=== PATIENT | female | born 1945 | race Caucasian/White ===

== ENCOUNTER 2023-04-12 13:45 | Outpatient (OUT) | payer MEDICARE, SELFPAY ==
--- NOTE | 2023-04-12 14:10 | XR_ITS ---
The [address] [address] Patient Name: MARIA ELENA ALLEN MRN: [id number] date: 1945 Sex: F Assigned Patient Location: [facility] Current Patient Location: [facility] Accession/Order Number: [id number] Exam Date: 04/12/2023 14:00 Report Date: 04/12/2023 14:58 At the request of: ANTOINE IZQUIERDO Procedure: XR thoracic spine 2V EXAM: XR thoracic spine 2V HISTORY: Acute left-sided thoracic back pain M54.6 COMPARISON: 11/08/2017 TECHNIQUE: AP and lateral views of the thoracic spine obtained. FINDINGS: There is relatively normal curvature and alignment of the vertebral bodies throughout the thoracic spine. There is no apparent acute fracture. Small osteophytes arise from the vertebral bodies. Slight narrowing of the disc spaces is noted throughout. The posterior elements are unremarkable. Incidentally noted are diffuse interstitial changes throughout the lungs, which appear fairly chronic in nature with interval worsening. There is also interval increase of the prominence of the bang.. XR/XR thoracic spine 2V IMPRESSION: Degenerative changes are seen in the spine with diffuse osteopenia. There is no apparent acute fracture or significant osseous abnormality. Interval worsening of patient's chronic interstitial disease, with increasing prominence of the bang indicating adenopathy or masses. Perhaps further evaluation with a CT scan of the chest at this time would be helpful. Electronically authenticated by: MIRIAM GUADARRAMA Date: 04/12/2023 14:58
== END 2023-04-12 13:46 | disposition home or self-care (01) ==
LOC: RAD 13:46
PROVIDERS: PCP Internal Medicine; Visit Provider Internal Medicine
DX: M54.6 Pain in thoracic spine (principal)
CPT/HCPCS: 72070

== ENCOUNTER 2023-04-14 07:54 | Outpatient (RCR) | payer MEDICARE, SELFPAY | END 2023-04-22 13:19 | disposition home or self-care (01) | LOC: PT 07:54 | PROVIDERS: PCP Internal Medicine; Visit Provider Internal Medicine | DX: M54.6 Pain in thoracic spine (principal) | CPT/HCPCS: 97010; 97110; 97140; 97161; G0283 ==

== ENCOUNTER 2023-04-19 13:26 | Outpatient (OUT) | payer MEDICARE, SELFPAY ==
[2023-04-19 13:49] LABS: Estimated GFR (African America >60 (>=60); Estimated GFR (Non-African Ame >60 (>=60)
--- NOTE | 2023-04-19 14:00 | CT_ITS ---
The [address] [address] Patient Name: MARIA ELENA ALLEN MRN: [id number] date: 1945 Sex: F Assigned Patient Location: LAB Current Patient Location: LAB Accession/Order Number: [id number] Exam Date: 04/19/2023 14:00 Report Date: 04/19/2023 15:44 At the request of: ANTOINE IZQUIERDO Procedure: CT chest w con EXAMINATION: CT chest w con HISTORY: Pulmonary nodule R91.1 ; former smoker; shortness of breath with exertion COMPARISON: No relevant comparison available. TECHNIQUE: Multi-planar CT images were obtained without and/or with IV contrast as indicated by examination type. Axial, Coronal, and Sagittal images. Dose reduction techniques were achieved by using automated exposure control and/or adjustment of mA and/or kV according to patient size and/or use of iterative reconstruction technique. FINDINGS: LUNGS: 4 mm nodule within posterior lateral aspect of right middle lobe. Fibrotic changes along the peripheral margins of the lungs and mild-moderate emphysematous changes. PLEURA: No mass, effusion, or pneumothorax. VASCULATURE: No abnormality. CAROL: No mass or adenopathy. MEDIASTINUM: No mass or adenopathy. CARDIAC: No enlargement, pericardial thickening, or significant calcification. AORTA: No aneurysm or dissection. CHEST WALL: No mass or axillary adenopathy. BONES: No bone lesion or fracture. LIMITED ABDOMEN: No suspicious findings Limited images of the upper abdomen. OTHER: Negative. CT/CT chest w con IMPRESSION: 1. Within the right middle lobe is a 4 mm nodule, nonspecific but not overtly suspicious. Follow-up CT chest in 6 months is recommended to document stability. 2. Emphysematous changes and peripheral fibrotic changes. No convincing acute infiltrates. Electronically authenticated by: AMEE ESTRADA Date: 04/19/2023 15:44
== END 2023-04-19 13:27 | disposition home or self-care (01) ==
LOC: LAB 13:26
PROVIDERS: PCP Internal Medicine; Visit Provider Internal Medicine
DX: R91.1 Solitary pulmonary nodule (principal)
CPT/HCPCS: 36415; 71260; 82565; Q9967

== ENCOUNTER 2023-05-13 09:10 | Outpatient (REF) | payer MEDICARE, SELFPAY ==
[2023-05-13 10:04] LABS: SARS-CoV-2 Ag NEGATIVE (NEGATIVE)
[2023-05-13 15:27] LABS: SARS-CoV-2 NAA NOT DETECTED (NOT DETECTE)
== END 2023-05-13 09:11 | disposition home or self-care (01) ==
LOC: LAB 09:10
PROVIDERS: PCP Internal Medicine; Visit Provider Internal Medicine
DX: Z20.822 Contact with and (suspected) exposure to COVID-19 (principal)
CPT/HCPCS: 87635; 87811; U0003

== ENCOUNTER 2023-06-13 12:08 | Outpatient (OUT) | payer MEDICARE, SELFPAY ==
--- NOTE | 2023-06-13 13:30 | PM.CN ---
Consult Note: HPI Data of Consult Patient: new to practice Consult date: 06/13/23 Requesting Physician: Raphael Parisi MD Primary Care Provider: Edwin Mohan, DO Consult Narrative Reason for consult: midback, low back, right hip, bilateral knee pain Narrative: 78yof who presents for evaluation. she notes worsening midback, low back, right hip, bilateral knee pain. Ongoing for several months, but worsening. Thoracic XR shows multilevel degenerative changes, but no imaging available of low back. has completed physical therapy, continues in chiropractor >6 weeks, continues in provider directed home exercise program for >6 weeks, with limited benefit. Has had cortisone and gel injections for knees, with marginal benefit. Utilizes tramadol, with some benefit. Denies adverse med side effects. cc:: CC: Raphael Parisi MD Review of Systems ROS Status of ROS 10 or more systems reviewed and unremarkable except as noted in history and below Exam Narrative Exam Narrative: Psych-alert and oriented x 3. Attentive and appropriate, constitutionally normal, displays normal mood and affect per situation.? There are no obvious deficits in memory, reasoning, or intellect.? Skin-no obvious rashes, bruising, erythema noted to the patient's area of pain. Extremities- extremities are warm with minimal edema and palpable pulses. Lumbar-no significant tenderness to palpation noted in the lumbar spine and paraspinal musculature.? Pain is elicited with extension, and lateral rotation of the lumbar spine. Range of motion is slightly diminished with these motions due to pain. Facet loading maneuvers are positive bilaterally and do appear to be concordant with the patient's normal complaints of pain.? Thoracic - tenderness to palpation in midback. Pain radiates outward around T5, 6, 7 dermatomal regions. Knee-examination of the bilateral knee reveals tenderness to palpation over the superior, inferior, lateral, and medial aspect of the knee.? Some swelling is noted without erythema. Pain is elicited with flexion and extension of the knee both actively and passively.? Some grinding is noted with these motions.? There is no notable ligamental laxity or instability. Coordination remains intact.? Gait remains non-antalgic. Assessment and Plan Assessment and Plan (1) Osteoarthritis of knees, bilateral: (2) Lumbago: (3) Right hip pain: (4) Thoracic radiculopathy: (5) Thoracic stenosis: Plan 78yof who presents for evaluation. Failed conservative measures, as noted. Imaging reviewed, as noted. Given radiating midback pain and failure to respond to conservative measures >6 weeks, prudent to obtain thoracic MRI without contrast. States that she had epidural done 30 years ago, which provided significant relief. Will also obtain lumbar and right hip XR. In terms of bilateral knee pain, has not had much relief with cortisone and synvisc injections. Will have her undergo bilateral genicular nerve blocks for diagnostic and potentially therapeutic purposes. She is in agreement. Medications reviewed. She will continue her tramadol. I told her that we could take over tramadol prescription if her PCP wanted, though she does not need refill now. Uses sparingly and does not like taking it except for before bed. Follow up after procedure and imaging.
== END 2023-06-13 12:09 | disposition home or self-care (01) ==
LOC: PM 12:08
PROVIDERS: PCP Internal Medicine; Visit Provider Anesthesiology
DX: M54.50 Low back pain, unspecified (principal); M25.551 Pain in right hip; M17.0 Bilateral primary osteoarthritis of knee; M54.14 Radiculopathy, thoracic region; M48.04 Spinal stenosis, thoracic region
CPT/HCPCS: G0463

== ENCOUNTER 2023-06-15 08:57 | Outpatient (OUT) | payer MEDICARE, SELFPAY ==
--- NOTE | 2023-06-15 09:05 | XR_ITS ---
[address] [address] Patient Name: MARIA ELENA ALLEN MRN: [id number] date: 1945 Sex: F Assigned Patient Location: [facility] Current Patient Location: MRI Accession/Order Number: [id number] Exam Date: 06/15/2023 09:25 Report Date: 06/15/2023 14:40 At the request of: ANTOINE IZQUIERDO Procedure: XR DEXA axial skeleton EXAMINATION: XR DEXA axial skeleton HISTORY: Screening COMPARISON: DEXA bone densitometry 02/16/2021 TECHNIQUE: Dual-energy X-ray absorptiometry (DXA) was performed. FINDINGS: SPINE ANALYSIS: Average bone mineral density is 0.974 g/cm2. T-score (standard deviation relative to young adult mean): -1.7 . + 3.5% change since prior study HIP ANALYSIS: Lowest bone mineral density is within the left femoral trochanter, 0.43 g/cm2. T-score (standard deviation relative to young adult mean): -3.6 . -10.1% change since prior study. XR/XR DEXA axial skeleton IMPRESSION: World Carl Organization Classification: Osteoporosis - High Fracture Risk Electronically authenticated by: AMEE ESTRADA Date: 06/15/2023 14:40
--- NOTE | 2023-06-15 09:05 | MM_ITS ---
Patient: MARIA ELENA ALLEN Exam Date: 06/15/2023 : 1945 Gender:F Ordering : DR Edwin Mohan D.O. Admission #: [id number] Family : Order #: [id number] CLICK HERE TO VIEW EXAM RADIOLOGY REPORT PROCEDURE: MM TOMOSYNTHESIS SCREENING BI COMPARISON: MG [facility]M SCREEN 3D JESSENIA CAD, 05/25/2022. MG MAMM SCREEN 3D JESSENIA CAD, 02/16/2021. MG MAMM SCREEN JESSENIA W CAD, 06/28/2019. MG MAMM JESSENIA SCRN W CAD DIG, 11/15/2013. INDICATIONS: Screening Calculator Name NCI Breast Cancer Risk Assessment Tool 5 Year Breast Cancer Risk 1.70% Lifetime Breast Cancer Risk 3.30% Personal Breast Cancer No Personal Ovarian Cancer No Treatments None Family Cancers None LOCATION: [facility] BREAST COMPOSITION: Scattered areas fibroglandular density. FINDINGS: DIAGNOSTIC CATEGORY 2--BENIGN FINDING: RIGHT BREAST: No significant suspicious finding. No significant change has occurred. LEFT BREAST: No significant suspicious finding. Scattered benign-appearing lymph nodes are present. No significant change has occurred. RECOMMENDATIONS: ROUTINE MAMMOGRAM AND CLINICAL EVALUATION IN 12 MONTHS. PLEASE NOTE: A NORMAL MAMMOGRAM DOES NOT EXCLUDE THE POSSIBILITY OF BREAST CANCER. A CLINICALLY SUSPICIOUS PALPABLE LUMP SHOULD BE BIOPSIED. Dictated by: Xavier Roe M.D. on 06/20/2023 at 12:45 Approved by: Xavier Roe M.D. on 06/20/2023 at 12:48
== END 2023-06-15 08:58 | disposition home or self-care (01) ==
LOC: MAMMO 08:57
PROVIDERS: PCP Internal Medicine; Visit Provider Internal Medicine
DX: Z12.31 Encounter for screening mammogram for malignant neoplasm of breast (principal); Z78.0 Asymptomatic menopausal state; M81.0 Age-related osteoporosis without current pathological fracture
CPT/HCPCS: 77063; 77067; 77080

== ENCOUNTER 2023-06-15 08:58 | Outpatient (OUT) | payer MEDICARE, SELFPAY ==
--- NOTE | 2023-06-15 09:03 | XR_ITS ---
The [place] [id number] Patient Name: MARIA ELENA ALLEN MRN: [id number] date: 1945 Sex: F Assigned Patient Location: [facility] Current Patient Location: Accession/Order Number: [id number] Exam Date: 06/15/2023 09:45 Report Date: 06/16/2023 09:48 At the request of: ALINE LANDAVERDERABEVERLEY Procedure: XR lumbar spine 6V w bending EXAMINATION: XR lumbar spine 6V w bending HISTORY: Low Back Pain an intermittent right hip pain for 2 weeks, back spasm, limited range of motion COMPARISON: No relevant comparison available. FINDINGS: BONES: Mild grade 1 retrolisthesis of L1 on 2 and L2 on 3 which is stable between neutral, flexion, extension. Development of mild grade 1 retrolisthesis of L3 on 4 during extension. Minimal left convex curvature of lumbar spine. No fracture or bone lesion. Moderate degenerative facet arthropathy L4-5, L5-S1. DISC SPACES: No significant disc height narrowing, subluxation, or endplate abnormality. PARASPINOUS: Marked atherosclerotic disease of aorta and iliac arteries; no appreciable aneurysm. OTHER: Negative. XR/XR lumbar spine 6V w bending IMPRESSION: 1. Moderate degenerative facet arthropathy of lower lumbar spine and multilevel mild grade 1 listhesis. 2. No appreciable disc space narrowing. Consider MRI if symptoms persist. Electronically authenticated by: AMEE ESTRADA Date: 06/16/2023 09:48
--- NOTE | 2023-06-15 09:03 | XR_ITS ---
The [address] [address] Patient Name: MARIA ELENA ALLEN MRN: [id number] date: 1945 Sex: F Assigned Patient Location: [facility] Current Patient Location: [facility] Accession/Order Number: [id number] Exam Date: 06/15/2023 09:45 Report Date: 06/15/2023 18:08 At the request of: ANDRIUS GIEDRAITIS Procedure: XR hip RT min 2V EXAM: Right hip HISTORY: . Right Hip Pain . COMPARISON: None. TECHNIQUE: 2 views FINDINGS: No fracture or dislocation of the right hip is noted. Joint spaces well-maintained. Surrounding soft tissues are unremarkable. XR/XR hip RT min 2V IMPRESSION: Negative right hip. Electronically authenticated by: BHARTI JONES Date: 06/15/2023 18:08
== END 2023-06-15 08:59 | disposition home or self-care (01) ==
LOC: RAD 08:59
PROVIDERS: PCP Internal Medicine; Visit Provider Anesthesiology
DX: Z12.31 Encounter for screening mammogram for malignant neoplasm of breast (principal); M81.0 Age-related osteoporosis without current pathological fracture; Z78.0 Asymptomatic menopausal state; M54.50 Low back pain, unspecified; M25.551 Pain in right hip; M47.816 Spondylosis without myelopathy or radiculopathy, lumbar region
CPT/HCPCS: 72114; 73502; 77063; 77067; 77080

== ENCOUNTER 2023-06-20 06:44 | Day surgery (SDC) | payer MEDICARE, SELFPAY ==
[2023-06-20 06:59] VITALS: BP 144/72; PULSE 59; RESP 16; TEMP 36.2; O2SAT 96
[2023-06-20] MEDS: LIDOCAINE HCL 2% PF 100 MG/5 ML VIAL INJ (07:55)
[2023-06-20] MEDS: BUPIVACAINE HCL 0.25% PF 25 MG/10 ML VIAL INJ (07:55)
--- NOTE | 2023-06-20 07:55 | W.PM.PROCNOT ---
Date of procedure: 06/20/23 Pre-op diagnosis: Knee osteoarthritis, bilateral Post-op diagnosis: same as pre-op Procedure: Procedure: Bilateral genicular nerve block Medications: Bupivacaine 0.25% 3cc, kenalog 40mg x2 The patient was taken to the procedures suite and positioned in the supine position. I explained the details of the procedure to the patient including the risks, benefits and alternatives. We had an informed discussion and the patient verbalized understanding and signed the consent form. All questions were answered appropriately.? A 'time out' procedure was performed. The patient was identified, the chart was reviewed, and all allergies were confirmed. Laterality was conducted and marked. The appropriate was marked with a sterile marking pen, prepped times three with alcohol, and sterilely draped.? Under fluoroscopic guidance, branches of the genicular nerves were localized.? First the left sided superior medial genicular nerve was localized where the femoral shaft meets the medial epicondyle.? Skin was anesthetized with 1% lidocaine.? A 25-gauge 3.5 in needle was advanced in a coaxial manner in the AP view.? This was repeated on the superior lateral genicular nerve where the femoral shaft meets the lateral epicondyle and the inferior medial genicular nerve where the medial tibal shaft meets the tibial epicondyle. After negative aspiration for blood or other bodily fluids, 1cc of 0.25% bupivicaine was injected at each of the three sites. The needles were removed. The same procedure, with the same steps, was then completed on the right side. The patient was transported to the postoperative area in good condition. Anesthesia: Local Surgeon: Raphael Parisi Pathology: none sent Condition: stable Disposition: no change
[2023-06-20] MEDS: TRIAMCINOLONE ACETONIDE 40 MG/ML VIAL 80 MG INJ (07:56)
[2023-06-20 09:09] VITALS: BP 117/57; BP 123/62; PULSE 64; PULSE 66; RESP 18; O2SAT 94; O2SAT 96
== END 2023-06-20 08:01 | disposition home or self-care (01) ==
PROVIDERS: PCP Internal Medicine; Visit Provider Anesthesiology
DX: M17.0 Bilateral primary osteoarthritis of knee (principal)
CPT/HCPCS: 64454

== ENCOUNTER 2023-06-22 09:33 | Outpatient (OUT) | payer MEDICARE, SELFPAY ==
--- NOTE | 2023-06-22 09:40 | MR_ITS ---
[address] [address] Patient Name: MARIA ELENA ALLEN MRN: [id number] date: 1945 Sex: F Assigned Patient Location: MRI Current Patient Location: MRI Accession/Order Number: [id number] Exam Date: 06/22/2023 09:50 Report Date: 06/22/2023 12:00 At the request of: ANDRI GIEDRAITIS Procedure: MR thoracic spine wo con EXAM: MR thoracic spine wo con CLINICAL INDICATION: Thoracic Stenosis COMPARISON: CT chest 04/10/2023. TECHNIQUE/PROTOCOL: Thoracic spine noncontrast protocol MRI performed. CONTRAST: None. FINDINGS: Spinal Cord and Cauda Equina: Normal in signal. Epidural Hematoma: None. Alignment: Normal. Marrow Signal: Normal. Vertebral Body Heights: Maintained. Paraspinal Soft Tissues: Normal. Spondylotic Changes: Multilevel spondylotic changes include diffuse disc desiccation and varying degrees of intervertebral disc height loss, osteophytic ridging, and facet/ligamentum flavum hypertrophy. Right central disc protrusion at T8-T9 indents the right ventral thecal sac and results in mild to moderate spinal canal narrowing. Partially calcified disc bulge with superimposed left central disc protrusion at T9-T10 together indent the ventral thecal sac and deforms the spinal cord. These in conjunction with bilateral facet/ligamentum flavum hypertrophy overall result in advanced spinal canal narrowing. Small left central disc protrusion at T12-L1 results in mild spinal canal narrowing. No high-grade foraminal narrowing at any thoracic level. MR/MR thoracic spine wo con IMPRESSION: 1. Multilevel spondylotic changes with advanced spinal canal narrowing at T9-T10. This is contributed to by a partially calcified disc bulge with superimposed left central disc protrusion and facet/ligamentum flavum hypertrophy. No abnormal cord signal. 2. Spinal canal narrowing is also mild to moderate at T8-T9. Electronically authenticated by: DEDRA MANTILLA Date: 06/22/2023 12:00
== END 2023-06-22 09:34 | disposition home or self-care (01) ==
LOC: MRI 09:33
PROVIDERS: PCP Internal Medicine; Visit Provider Anesthesiology
DX: M48.04 Spinal stenosis, thoracic region (principal)
CPT/HCPCS: 72146

== ENCOUNTER 2023-06-29 09:54 | Outpatient (OUT) | payer MEDICARE, SELFPAY ==
--- NOTE | 2023-06-29 10:40 | P.CN_ITS ---
Consult Note: HPI Data of Consult Patient: known to practice within the last 3 years Consult date: 06/13/23 Requesting Physician: Sunshine Chaparro NP Primary Care Provider: Edwin Mohan DO Consult Narrative Reason for consult: f/u Narrative: Chelly blackwell pleasant 78 year old female presents for evaluation and manag ement of chronic pain. Pain today 2/10 in bilateral knees. Patient reporting 80% pain relief and functional improvement immediately following and hours after bilateral genicular nerve block. Patient would like to discuss proceeding with bilateral genicular thermal RFA as she has had chronic bilateral knee pain >3 months unresponsive to PT/HEP, OTC pain medications, topical creams, PRN tramadol. Pain continues to impact functional ability. cc:: CC: Sunshine Chaparro NP Review of Systems ROS Status of ROS 10 or more systems reviewed and unremarkable except as noted in history and below Musculoskeletal Reports: joint pain (bilateral knee pain) PFSH PFSH Medical History Acid reflux ?K21.9 - Gastro-esophageal reflux disease without esophagitis (ICD-10) High cholesterol ?E78.00 - Pure hypercholesterolemia, unspecified (ICD-10) Hypertension ?I10 - Essential (primary) hypertension (ICD-10) Surgical History H/O: hysterectomy ?Z90.710 - Acquired absence of both cervix and uterus (ICD-10) Meds Home Medications and Allergies Home Medications Medication Instructions Recorded Confirmed Type albuterol sulfate 90 mcg/actuation 2 puff inhalation Q4H PRN 06/14/23 06/20/23 History aerosol inhaler shortness of breath or wheezing aspirin 81 mg tablet,delayed 81 mg PO DAILY 06/14/23 06/20/23 History release (Adult Aspirin Regimen) atenolol 25 mg tablet 25 mg PO Q24H 06/14/23 06/20/23 History atorvastatin 40 mg tablet 20 mg PO DAILY 06/14/23 06/20/23 History hydrochlorothiazide 25 mg tablet 25 mg PO DAILY 06/14/23 06/20/23 History loratadine 10 mg capsule 10 mg PO DAILY 06/14/23 06/20/23 History losartan 100 mg tablet 100 mg PO DAILY 06/14/23 06/20/23 History omeprazole 40 mg capsule,delayed 40 mg PO DAILY 06/14/23 06/20/23 History release tramadol 50 mg tablet 50 mg PO Q6H PRN pain 06/14/23 06/20/23 History Allergies Allergy/AdvReac Type Severity Reaction Status Date / Time cefaclor [From Ceclor] Allergy Verified 06/20/23 07:05 ciprofloxacin [From Cipro] Allergy Verified 06/20/23 07:05 Exam Narrative Exam Narrative: Psych-alert and oriented x 3. Attentive and appropriate, constitutionally normal, displays normal mood and affect per situation.? There are no obvious deficits in memory, reasoning, or intellect.? Skin-no obvious rashes, bruising, erythema noted to the patient's area of pain. Extremities- extremities are warm with minimal edema and palpable pulses. Lumbar-no significant tenderness to palpation noted in the lumbar spine and paraspinal musculature.? Pain is elicited with extension, and lateral rotation of the lumbar spine. Range of motion is slightly diminished with these motions due to pain. Facet loading maneuvers are positive bilaterally and do appear to be concordant with the patient's normal complaints of pain.? Thoracic - tenderness to palpation in midback. Pain radiates outward around T5, 6, 7 dermatomal regions. Knee-examination of the bilateral knee reveals tenderness to palpation over the superior, inferior, lateral, and medial aspect of the knee.? Some swelling is noted without erythema. Pain is elicited with flexion and extension of the knee both actively and passively.? Some grinding is noted with these motions.? There is no notable ligamental laxity or instability. Coordination remains intact.? Gait remains non-antalgic. Constitutional Documenting provider has reviewed patient's vital signs: yes Common normals: no apparent distress, oriented x3, healthy appearing, alert and well nourished General appearance: cooperative [facility] Common normals: normocephalic, hearing grossly normal bilaterally and moist oral mucous membranes Head and scalp: normocephalic Eye Common normals: PERRL Pupil: PERRL Neck & C-Spine Common normals: full ROM General: normal visual inspection Chest Common normals: inspection of chest normal Respiratory Common normals: normal respiratory effort, no retractions and no use of accessory muscles Neuro Common normals: oriented x3, CN's II-XII intact bilaterally, moves all extremities, no focal motor deficits, no sensory deficits noted and deep tendon reflexes 2+ bilaterally Sensorium/orientation: alert Motor exam: strength 5/5 throughout and no movement abnormalities noted Psych Common normals: mental status grossly normal, thought process normal, cooperative, affect normal, speech normal and activity/motor behavior normal Speech: normal speech Thought process: normal thought process Results Additional Findings Additional findings: I have checked an OARRS report on this patient today and there are no aberrancies noted in the prescribing history.?? A drug screen was completed and reviewed within the last year, and if there has not been a drug screen completed we ordered one today to monitor higher risk, state monitored pain medication use. As part of providing excellent, safe, comprehensive care, the following was completed at our patient's visit: 1. A medication reconciliation and review to ensure accurate knowledge of current/active medications, including asking our patients to inform us about any [id number] medications or herbal remedies/nutritional supplements/alternative remedies. 2. A review to specifically ensure our patients have had annual screening for: elevated body mass index (BMI), tobacco use, screening for depression, and screening for unhealthy alcohol use. When screening is concerning, patients are provided with education and the specific recommendation to discuss the concerning health issue and treatment options with their primary care provider. Assessment and Plan Assessment and Plan (1) Osteoarthritis of knees, bilateral: (2) Thoracic stenosis: (3) Thoracic radiculopathy: (4) Right hip pain: (5) Lumbago: Plan imaging of thoracic spine and lumbar spine reviewed with patient, declining additional injections at this time proceed with bilateral knee genicular ablations under fluoroscopy continue medications through PCP f/u 1 month after thermal RFA
== END 2023-06-29 09:55 | disposition home or self-care (01) ==
LOC: PM 09:57
PROVIDERS: PCP Internal Medicine; Visit Provider Nurse Practitioner
DX: M25.551 Pain in right hip (principal); M54.50 Low back pain, unspecified; M17.0 Bilateral primary osteoarthritis of knee; M48.04 Spinal stenosis, thoracic region; M54.14 Radiculopathy, thoracic region
CPT/HCPCS: G0463

== ENCOUNTER 2023-07-25 07:44 | Day surgery (SDC) | payer MEDICARE, SELFPAY ==
[2023-07-25 07:39] VITALS: BP 110/72; PULSE 58; RESP 14; TEMP 36.3; O2SAT 96
[2023-07-25 08:41] VITALS: BP 129/62; PULSE 54; RESP 18; O2SAT 94
[2023-07-25] MEDS: TRIAMCINOLONE ACETONIDE 40 MG/ML VIAL 80 MG INJ (08:47)
[2023-07-25] MEDS: BUPIVACAINE HCL 0.25% PF 25 MG/10 ML VIAL 4 ML INJ (08:47)
[2023-07-25 08:52] VITALS: BP 140/59; PULSE 57; RESP 18; O2SAT 96
[2023-07-25] MEDS: LIDOCAINE HCL 2% 400 MG/20 ML MDV 36 ML INJ (08:59)
--- NOTE | 2023-07-25 08:59 | W.PM.PROCNOT ---
Date of procedure: 07/25/23 Pre-op diagnosis: Knee osteoarthritis, bilateral Post-op diagnosis: same as pre-op Procedure: Procedure: Bilateral genicular nerve radiofrequency ablation Medications: Bupivacaine 0.25% 6cc, kenalog 80mg, lidocaine 2% 10cc The patient was taken to the procedures suite and positioned in the supine position. I explained the details of the procedure to the patient including the risks, benefits and alternatives. We had an informed discussion and the patient verbalized understanding and signed the consent form. All questions were answered appropriately.? ? A 'time out' procedure was performed. The patient was identified, the chart was reviewed, and all allergies were confirmed. Laterality was conducted and marked. The left knee was marked with a sterile marking pen, prepped with Chloraprep, and sterilely draped.? Under fluoroscopic guidance, branches of the genicular nerves were localized.? First the superior medial genicular nerve was localized where the femoral shaft meets the medial epicondyle.? Skin was anesthetized with 1% lidocaine (only the superficial areas far from osseous contact).? The appropriate level of insertion was identified by placing a hemostat over the knee and obtaining an AP view. An 18-gauge 10 mm active tip 3.5 in needle was advanced in a coaxial manner in the lateral view at 1/2 the depth of the femur which was identified by placing forceps over the skin in the lateral view.? This was repeated on the superior lateral genicular nerve where the femoral shaft meets the lateral epicondyle and the inferior medial genicular nerve where the medial tibal shaft meets the tibial epicondyle (needle was advanced to half the depth of the tibia).? Needle placement was confirmed with a lateral view in all sites, after negative aspiration, 1cc of 2% lidocaine was injected at each of the three sites. ? Sensory testing was completed at 0.5 V at each level and motor testing was negative at 1.5 V for all 3 levels. Each of the sites were lesioned for 80 degrees at 80 seconds, with impedance < 500. The probes were subsequently removed and the sites of insertion were bandaged. The same procedure, with the same steps, was then completed on the opposite side. The patient was taken to the postoperative area and discharged in good condition. Anesthesia: Local Surgeon: Raphael Parisi Pathology: none sent Condition: stable Disposition: no change
== END 2023-07-25 09:09 | disposition home or self-care (01) ==
PROVIDERS: PCP Internal Medicine; Visit Provider Anesthesiology
DX: M17.0 Bilateral primary osteoarthritis of knee (principal)
CPT/HCPCS: 64454; 64624

== ENCOUNTER 2023-08-31 12:54 | Outpatient (OUT) | payer MEDICARE, SELFPAY ==
--- OUTSIDE RECORDS SUMMARY | 2023-08-31 12:57 | XMS_ITS | CCD ---
Author Name Unknown Address [address] [place] [id number] Organization [facility] Care Team Providers Care Cutter Woodwind Reeds Name Role Phone Edwin Mohan Unavailable MARQUES, DR PINEDA Admitting Unavailable MARQUES, DR PINEDA Attending Unavailable MARQUES, DR PINEDA Primary Care Unavailable MARQUES, DR PINEDA Consulting Unavailable MARQUES, DR PINEDA Admitting Unavailable MARQUES, DR PINEDA Attending Unavailable MARQUES, DR PINEDA Primary Care Unavailable MARQUES, DR PINEDA Consulting Unavailable WEST, DR BHARTI De La Rosa Consulting Unavailable MARQUES, DR PINEDA Admitting Unavailable MARQUES, DR PINEDA Attending Unavailable MARQUES, DR PINEDA Primary Care Unavailable Marques, DO Pineda Primary Care Provider DO Edwin Mohan Attending Provider Edwin Mohan Attending Unavailable Marques, Edwin Primary Care Unavailable Marques, Edwin Admitting Unavailable YANY MARTINEZ Attending Unavailable Gitania CHO, Raphael Luna Attending Unavailable Ailin CHO, Raphael Luna Attending Unavailable Gitania CHO, Raphael Luna Attending Unavailable Allergies Allergy Classification Reported Allergen(s) Allergy Type Date of Onset Reaction(s) Facility (7 sources) Cefaclor; Translations: [Ceclor] Drug Allergy Unknown [facility] Repository (20 sources) Ciprofloxacin Drug Allergy Unknown Mis Descuentos Other (1 source) Ciprofloxacin Drug Allergy [facility] (1 source) Robafen DM Cough-Chest Congest Drug allergy (disorder) [facility] (20 sources) Ceclor *CEPHALOSPORINS* Propensity to adverse reactions Unknown Mis Descuentos Other Medications Current Medications Medication Drug Class(es) Dates Sig (Normalized) Sig (Original) [id number] 200 actuat albuterol 0.09 mg/actuat metered dose inhaler (13 sources) beta2-Adrenergic Agonist Start: 04-21-2023 take 2 puff(s) by inhalation every four hours as needed for cough Albuterol Sulfate HFA 108 (90 Base) MCG/ACT 2 puffs Inhalation every 4 hrs as needed for cough, SOB for 30 days Mar, Active take 2 puff(s) by in halation every four hours as needed for cough Albuterol Sulfate HFA 108 (90 Base) MCG/ACT INHALE 2 PUFFS EVERY 4 HOURS NEEDED FOR COUGH/ SHORT OF BREATH Active take 2 puff(s) by in halation every four hours as needed for cough Albuterol Sulfate HFA 108 (90 Base) MCG/ACT INHALE 2 PUFFS EVERY 4 HOURS NEEDED FOR COUGH/ SHORT OF BREATH for 25 Active atenolol 25 mg oral tablet (20 sources) beta-Adrenergic Dwayne Start: 08-12-2023 take 0.5 tablet by mouth once daily Atenolol 25 MG 1/2 tablet Orally Once a day for 30 days Jul, Active take 1 tablet by mouth once carolyn y Atenolol 25 MG TAKE 1 TABLET BY MOUTH EVERY DAY for 90 Active atorvastatin 20 mg oral tablet (20 sources) HMG-CoA Reductase Inhibitor Start: 09-20-2022 take 1 tablet by mouth every twenty-four hours Atorvastatin Calcium 20 MG 1 tablet Orally Once a day Replaces the 40 mg prescription Aug, Active azithromycin 250 mg oral tablet (5 sources) Macrolide Antimicrobial Start: 07-19-2023 Azithromycin 250 MG as directed Orally daily for 5 days Jun, Active baclofen 10 mg oral tablet (20 sources) gamma-Aminobutyr ic Acid-ergic Agonist Start: 04-07-2023 take 1-2 tablets by mouth once at bedtime Baclofen 10 MG 1-2 tablets Orally q HS for 15 days Mar, Active benzonatate 200 mg oral capsule (20 sources) Non-narcotic Antitussive Start: 11-01-2022 take 1 capsule by mouth every eight hours Benzonatate 200 MG 1 capsule Orally Three times a day for 10 Oct, Active 60 actuat fluticasone propionate 0.25 mg/actuat / salmeterol 0.05 mg/actuat dry powder inhaler (10 sources) Corticosteroid, beta2-Adrenergic Agonist Start: 06-03-2023 take 1 puff(s) by inhalation twice daily Wixela Inhub 250-50 MCG/ACT 1 puff Inhalation Twice a day for 30 days May, Active hydroCHLOROthiazide 25 mg oral tablet (20 sources) Thiazide Diuretic take 1 tablet by mouth every twenty-four hours hydroCHLOROthiazide 25 MG 1 tablet in the morning Orally Once a day Active loratadine 10 mg oral capsule (20 sources) take 1 capsule by mouth every twenty-four hours Loratadine 10 MG 1 capsule Orally Once a day Active losartan potassium 100 mg oral tablet (20 sources) Angiotensin 2 Receptor Dwayne take 1 tablet by mouth every twenty-four hours Losartan Potassium 100 MG 1 tablet Orally Once a day Active omeprazole 40 mg delayed release oral capsule (20 sources) Proton Pump Inhibitor take 1 capsule by mouth once daily Omeprazole 40 MG 1 capsule 30 minutes before morning meal Orally Once a day Active 24 hr oxybutynin chloride 10 mg extended release oral tablet (20 sources) Cholinergic Muscarinic Antagonist take 1 tablet by mouth every twenty-four hours oxyBUTYnin Chloride ER 10 MG 1 tablet Orally Once a day Active rosuvastatin calcium 5 mg oral tablet (20 sources) HMG-CoA Reductase Inhibitor take 1 tablet by mouth once daily in the evening Rosuvastatin Calcium 5 MG TAKE 1 TABLET BY MOUTH EVERY EVENING Active 24 hr tolterodine tartrate 2 mg extended release oral capsule (20 sources) Cholinergic Muscarinic Antagonist take 1 capsule by mouth every twenty-four hours Tolterodine Tartrate ER 2 MG 1 capsule Orally Once a day Active traMADol hydrochloride 50 mg oral tablet (19 sources) Opioid Agonist Start: 06-09-2023 take 1 tablet by mouth every six hours as needed for pain traMADol HCl 50 MG 1 tablet as needed Orally every 6 hours as needed for pain for 7 days May, Active Start: 04-12-2023 take 1 tablet by yovany th twice daily as needed for pain traMADol HCl 50 MG 1 tablet as needed Orally twice daily as needed for pain Mar, Active 30 actuat umeclidinium 0.0625 mg/actuat / vilanterol 0.025 mg/actuat dry powder inhaler (14 sources) Anticholinergic, beta2-Adrenergic Agonist take 1 puff(s) by inhalation once daily Anoro Ellipta 62.5-25 MCG/ACT 1 puff Inhalation Once a day for 30 days Active take 1 puff(s) by inhalation onc e daily Anoro Ellipta 62.5-25 MCG/ACT 1 puff Inhalation Once a day for 30 days Active Completed/Discontinued Medications Medication Drug Class(es) Dates Sig (Normalized) Sig (Original) amoxicillin 875 mg / clavulanate 125 mg oral tablet (20 sources) Penicillin-class Antibacterial Start: 11-01-2022 take 1 tablet by mouth every twelve hours Amoxicillin-Pot Clavulanate 875-125 MG 1 tablet Orally every 12 hrs w/ food for 5 days Oct, Not-Taking/PRN escitalopram 10 mg oral tablet (20 sources) Serotonin Reuptake Inhibitor take 1 tablet by mouth once daily at bedtime Escitalopram Oxalate 10 MG TAKE 1 TABLET BY MOUTH EVERYDAY AT BEDTIME for 90 Not-Taking/PRN Lidocaine (20 sources) Antiarrhythmic, Amide Local Anesthetic Start: 03-29-2023 Lidocaine Mar, 30 mg Suprep Bowel Prep Kit 17.5-3.13-1.6 GM/180ML (20 sources) Start: 05-19-2018 Suprep Bowel Prep Kit 17.5-3.13-1.6 GM/180ML 1 bottle at 4pm, 1 bottle at 11pm the day prior to colonoscopy Orally Once a day for 2 day(s) Apr, Not-Taking/PRN Start: 05-19-2018 Suprep Bowel P rep Kit 17.5-3.13-1.6 GM/180ML 1 bottle at 4pm, 1 bottle at 11pm the day prior to colonoscopy Orally Once a day for 2 day(s) Apr, Not-Taking triamcinolone acetonide 40 mg/ml injectable suspension (20 sources) Corticosteroid Start: 03-29-2023 Kenalog-40 Mar, 40 mg Problems Active Problems Problem Classification Problem Date Documented Da te Episodic/Chronic Anxiety disorders (2 sources) Generalized anxiety disorder; Translations: [Generalized anxiety disorder] Chronic Chronic obstructive pulmonary disease and bronchiectasis (20 sources) Simple chronic bronchitis; Translations: [Simple chronic bronchitis] Chronic Coronary atherosclerosis and other heart disease (20 sources) Coronary arteriosclerosis; Translations: [Atherosclerotic heart disease of [place] coronary artery without angina pectoris] Chronic Diabetes mellitus with complications (20 sources) Type 2 diabetes mellitus; Translations: [Type 2 diabetes mellitus with hyperglycemia] Onset: 03-27-2022 Chronic Disorders of lipid metabolism (20 sources) Pure hypercholesterolemia ; Translations: [Pure hypercholesterolemia , unspecified] Onset: 03-29-2022 Chronic Diverticulosis and diverticulitis (4 sources) Diverticulitis of colon; Translations: [Diverticulitis of large intestine without perforation or abscess without bleeding] Onset: 05-01-2018 Chronic Esophageal disorders (20 sources) Gastro-esophageal reflux disease with esophagitis; Translations: [Gastroesophageal reflux disease with esophagitis without hemorrhage] Chronic Essential hypertension (20 sources) Essential hypertension; Translations: [Essential (primary) hypertension] Onset: 03-29-2022 Chronic Immunizations and screening for infectious disease (2 sources) Vaccination given; Translations: [Encounter for immunization] Episodic Menopausal disorders (2 sources) Primary ovarian failure; Translations: [Other primary ovarian failure] Onset: 08-01-2017 Chronic Mood disorders (20 sources) Recurrent major 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; Translations: [Major depressive disorder, recurrent, in full remission] Chronic Neoplasms of unspecified nature or uncertain behavior (2 sources) Neoplasm of uncertain behavior of skin; Translations: [Neoplasm of uncertain behavior of skin] Episodic Nutritional deficiencies (2 sources) Vitamin D deficiency; Translations: [Vitamin D deficiency, unspecified] Chronic Osteoarthritis (20 sources) Osteoarthritis of knee; Translations: [Unilateral primary osteoarthritis, unspecified knee] Chronic Osteoporosis (20 sources) Senile osteoporosis; Translations: [Age-related osteoporosis without current pathological fracture] Chronic Other aftercare (2 sources) Long-term current use of drug therapy; Translations: [Other termite inspector (current) drug therapy] Episodic Other diseases of bladder and urethra (2 sources) Overactive bladder; Translations: [Overactive bladder] Chronic Other diseases of veins and lymphatics (20 sources) Peripheral venous insufficiency; Translations: [Venous insufficiency (chronic) (peripheral)] Episodic Other diseases of veins and lymphatics (1 source) Venous insufficiency (chronic) (peripheral) Episodic Other injuries and conditions due to external causes (2 sources) History of fall; Translations: [History of falling] Episodic Other lower respiratory disease (19 sources) Nodule of lung; Translations: [Solitary pulmonary nodule] Episodic Other lower respiratory disease (4 sources) Solitary pulmonary nodule Episodic Other lower respiratory disease (1 source) Other forms of dyspnea Episodic Other lower respiratory disease (1 source) Dyspnea, unspecified; Translations: [Dyspnea, unspecified] Onset: 05-23-2023 Episodic Other lower respiratory disease (3 sources) Other disorders of lung Episodic Other non-traumatic joint disorders (20 sources) Arthralgia of the lower leg; Translations: [Pain in left knee] Episodic Other non-traumatic joint disorders (1 source) Pain in left knee Episodic Other nutritional; endocrine; and metabolic disorders (20 sources) Obesity; Translations: [Obesity, unspecified] Resolved: 01-26-2021 Chronic Other nutritional; endocrine; and metabolic disorders (4 sources) Body mass index 40+ - severely obese; Translations: [Body mass index (BMI) 40.0-44.9, adult] Onset: 08[birth year]1959 Chronic Other nutritional; endocrine; and metabolic disorders (2 sources) Morbid obesity; Translations: [Morbid (severe) obesity due to excess calories] Chronic Other nutritional; endocrine; and metabolic disorders (20 sources) Body mass index 30+ - obesity; Translations: [Body mass index (BMI) 34.0-34.9, adult] Chronic Other nutritional; endocrine; and metabolic disorders (19 sources) Obesity caused by energy imbalance; Translations: [Other obesity due to excess calories] Chronic Other nutritional; endocrine; and metabolic disorders (3 sources) Other obesity due to excess calories Chronic Other nutritional; endocrine; and metabolic disorders (2 sources) Body mass index (BMI) 34.0-34.9, adult Chronic Other nutritional; endocrine; and metabolic disorders (1 source) Body mass index (BMI) 33.0-33.9, adult Chronic Other skin disorders (2 sources) Hypertrophic condition of skin; Translations: [Other hypertrophic disorders of the skin] Episodic Other upper respiratory infections (4 sources) Acute maxillary sinusitis, unspecified; Translations: [Acute maxillary sinusitis] Episodic Otitis media and related conditions (2 sources) Eustachian tube salpingitis; Translations: [Unspecified Eustachian salpingitis, left ear] Episodic Residual codes; unclassified (20 sources) Obstructive sleep apnea syndrome; Translations: [Obstructive sleep apnea (adult) (pediatric)] Chronic Residual codes; unclassified (4 sources) Obstructive sleep apnea (adult) (pediatric) Chronic Residual codes; unclassified (2 sources) Postmenopausal state; Translations: [Asymptomatic menopausal state] Episodic Spondylosis; intervertebral disc disorders; other back problems (20 sources) Lumbar spondylosis; Translations: [Spondylosis without myelopathy or radiculopathy, lumbar region] Chronic Spondylosis; intervertebral disc disorders; other back problems (9 sources) Pain in thoracic spine; Translations: [Pain in thoracic spine] Onset: 2013 Episodic Substance-related disorders (11 sources) Tobacco dependence in remission; Translations: [Nicotine dependence, cigarettes, in remission] Chronic Viral infection (2 sources) Herpes zoster with complication; Translations: [Zoster with other complications] Episodic Past or Other Problems Problem Classification Problem Date Documented Da te Episodic/Chronic Abdominal pain (2 sources) Left lower quadrant pain; Translations: [Left lower quadrant pain] Onset: 03-29-2017 Episodic Acute bronchitis (2 sources) Acute bronchitis; Translations: [Acute bronchitis, unspecified] Onset: 10-16-2013 Episodic Diabetes mellitus without complication (2 sources) Impaired fasting glycemia; Translations: [Impaired fasting glucose] Resolved: 08-06-2020 Episodic Diseases of mouth; excluding dental (2 sources) Recurrent aphthous stomatitis; Translations: [Recurrent oral aphthae] Onset: 02-20-2018 Episodic Esophageal disorders (6 sources) Esophageal disorders; Translations: [Gastro-esophageal reflux disease with esophagitis, without bleeding] Fluid and electrolyte disorders (2 sources) Dehydration; Translations: [Dehydration] Onset: 11-10-2015 Episodic Genitourinary symptoms and ill-defined conditions (4 sources) Oliguria and anuria; Translations: [Anuria and oliguria] Onset: 2016 Episodic Other aftercare (2 sources) Other termite inspector (current) drug therapy; Translations: [OTH OPERATING ROOM RN CURRENT DRUG THERAPY] Onset: 03-29-2022 Episodic Other and unspecified benign neoplasm (2 sources) 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; Translations: [Other benign neoplasm of skin of scalp and neck] Onset: 04-23-2015 Episodic Other connective tissue disease (2 sources) Spasm; Translations: [Cramp and spasm] Onset: 10-01-2015 Episodic Other diseases of kidney and ureters (2 sources) Stricture of ureter; Translations: [Crossing vessel and stricture of ureter without hydronephrosis] Onset: 11-07-2017 Episodic Other screening for suspected conditions (not mental disorders or infectious disease) (5 sources) Encounter for screening mammogram for malignant neoplasm of breast; Translations: [ENC SCR MAMMO MALIG NEOPLASM BREAST] Onset: 05-25-2022 Episodic Unclassified (1 source) Acute cough R05.1 Unclassified (1 source) Acute bilateral low back pain without sciatica M54.50 Unclassified (1 source) Suspected COVID-19 virus infection Z20.822 Urinary tract infections (2 sources) Acute cystitis; Translations: [Acute cystitis without hematuria] Onset: 06-06-2018 Episodic Results Test Name Value Interpretation Reference Range Facil ity MG MAMM SCREEN 3D JESSENIA CADon 05-25-2022 MG MAMM SCREEN 3D JESSENIA CAD Patient: MARIA ELENA ALLEN Exam Date: 05/25/2022 : 1945 Gender:F Ordering : DR EDWIN MOHAN D.O. Admission #: [id number] Family : Order #: [id number] CLICK HERE TO VIEW EXAM RADIOLOGY REPORT PROCEDURE: MAMMOGRAM SCREENING 3D BILATERAL CAD COMPARISON: MG MAMM SCREEN JESSENIA W CAD, 06/28/2019. MG MAMM SCREEN 3D JESSENIA CAD, 02/16/2021. INDICATIONS: Screening for malignant neoplasm of breast Calculator Name NCI Breast Cancer Risk Assessment Tool 5 Year Breast Cancer Risk 1.70% Lifetime Breast Cancer Risk 3.50% Personal Breast Cancer No Personal Ovarian Cancer No Treatments None Family Cancers None LOCATION: [facility] BREAST COMPOSITION: Scattered areas fibroglandular density. FINDINGS: DIAGNOSTIC CATEGORY 2--BENIGN FINDING. NO CHANGE FROM COMPARISON. Scattered benign-appearing nodules are present. Scattered benign-appearing calcifications are present. RIGHT BREAST: No significant suspicious finding. LEFT BREAST: No significant suspicious finding. RECOMMENDATIONS: ROUTINE MAMMOGRAM AND CLINICAL EVALUATION IN 12 MONTHS. PLEASE NOTE: A NORMAL MAMMOGRAM DOES NOT EXCLUDE THE POSSIBILITY OF BREAST CANCER. A CLINICALLY SUSPICIOUS PALPABLE LUMP SHOULD BE BIOPSIED. Dictated by: Bharti Paige MD on 05/26/2022 at 07:42 Approved by: Bharti Paige MD on 05/26/2022 at 07:48 Normal [facility] CBC AUTO DIFFon 03-27-2022 BASO # 0.0 103/ul Normal 0.0-0.1 [facility] Comment on above: Performed By: #### C BC #### [facility] [address] [address] [address] Eduardo Segura Basophils/100 WBC (Bld) 0.3 % Normal 0.2-2.0 [facility] Comment on above: Performed By: #### C BC #### [facility] [address] [place] [address] Dr. Eduardo Segura EO # 0.3 103/ul Normal 0.0-0.7 [facility] Comment on above: Performed By: #### C BC #### [facility] [address] [place] [address] Dr. Eduardo Segura Eosinophils/100 WBC (Bld) 4.3 % Normal 0.9-7.0 [facility] Comment on above: Performed By: #### C BC #### [facility] [address] [place] [address] Dr. Eduardo Segura Erythrocyte distribution width (RBC) [Ratio] 13.7 % Normal 11.0-15.0 [facility] Comment on above: Performed By: #### C BC #### [facility] [address] [place] [address] Dr. Eduardo Segura Hematocrit (Bld) [Volume fraction] 42.6 % Normal 36.0-48.0 [facility] Comment on above: Performed By: #### C BC #### [facility] [address] [place] [address] Dr. Eduardo Segura Hemoglobin (Bld) [Mass/Vol] 14.1 g/dL Normal 12.0-16.0 [facility] Comment on above: Performed By: #### C BC #### [facility] [address] [place] [address] Dr. Eduardo Segura IG # 0.02 10e3/ul Normal 0.00-0.03 [facility] Comment on above: Performed By: #### C BC #### [facility] [address] [place] [address] Dr. Eduardo Segura IG % 0.3 % Normal 0.0-0.5 [facility] Comment on above: Performed By: #### C BC #### [facility] [address] [place] [address] Dr. Eduardo Segura LYMPH # 2.3 103/ul Normal 1.2-3.8 [facility] Comment on above: Performed By: #### C BC #### [facility] [address] [place] [address] Dr. Eduardo Segura Lymphocytes/100 WBC (Bld) 31.9 % Normal 20.5-60.0 [facility] Comment on above: Performed By: #### C BC #### [facility] [address] [place] [address] Dr. Eduardo Segura MANUAL DIFF REQ NO Normal [facility] Comment on above: Performed By: #### C BC #### [facility] [address] [place] [address] Dr. Eduardo Segura MCH (RBC) [Entitic mass] 31.1 pg Normal 26.7-34.0 [facility] Comment on above: Performed By: #### C BC #### [facility] [address] [place] [address] Dr. Eduardo Segura MCHC (RBC) [Mass/Vol] 33.1 g/dL Normal 29.9-35.2 [facility] Comment on above: Performed By: #### C BC #### [facility] [address] [place] [address] Dr. Eduardo Segura MCV (RBC) [Entitic vol] 94.0 fL Normal 81.0-99.0 [facility] Comment on above: Performed By: #### C BC #### [facility] [address] [place] [address] Dr. Eduardo Segura MONO # 0.6 103/ul Normal 0.3-0.8 [facility] Comment on above: Performed By: #### C BC #### [facility] [address] [place] [address] Dr. Eduardo Segura Monocytes/100 WBC (Bld) 7.7 % Normal 1.7-12.0 [facility] Comment on above: Performed By: #### C BC #### [facility] [address] [place] [address] Dr. Eduardo Segura NEUT # 4.0 103/ul Normal 1.4-6.5 [facility] Comment on above: Performed By: #### C BC #### [facility] [address] [address] [address] Eduardo Segura Neutrophils/100 WBC (Bld) 55.5 % Normal 43.0-75.0 [facility] Comment on above: Performed By: #### C BC #### [facility] [address] [place] [address] Dr. Eduardo Segura Platelet mean volume (Bld) [Entitic vol] 10.2 fL Normal 9.5-13.5 [facility] Comment on above: Performed By: #### C BC #### [facility] [address] [address] [address] Eduardo Segura PLT 286 103/ul Normal 150-450 [facility] Comment on above: Performed By: #### C BC #### [facility] [address] [place] [address] Dr. Eduardo Segura RBC 4.53 106/ul Normal 4.20-5.40 [facility] Comment on above: Performed By: #### C BC #### [facility] [address] [place] [address] Dr. Eduardo Segura WBC 7.2 103/ul Normal 4.0-11.0 [facility] Comment on above: Performed By: #### C BC #### [facility] [address] [place] [address] Dr. Eduardo Segura GLYCOHEMOGLOBIN A1Con 2021 ADA RECOMMENDATION SEE BELOW Normal [facility] Comment on above: Result Comment: ADA RECOMMENDED LIMIT 4.0 - 6.0 ADA THERAPEUTIC TARGET < 7.0 ACTION SUGGESTED > 7.0 Performed By: #### A 1C #### [facility] [address] [place] [address] Dr. Eduardo Segura Glucose [Mass/Vol] 134 mg/dL Normal [facility] Comment on above: Performed By: #### A 1C #### [facility] [address] [place] [address] Dr. Eduardo Segura HbA1c (Bld) [Mass fraction] 6.3 % Critically high 4.5-6.2 [facility] Comment on above: Performed By: #### A 1C #### [facility] [address] [address] [address] Eduardo Segura LIPID PROFILEon 03-27-2022 CHOL-HDL RATIO NORM SEE BELOW Normal [facility] Comment on above: Result Comment: 3.3 - 4.4 LOW RISK 4.4 - 7.1 AVERAGE RISK 7.1 - 11.0 MODERATE RISK >11.0 HIGH RISK Performed By: #### B MP, LIPID, ALT #### [facility] [address] [address] [address] Eduardo Segura Cholesterol [Mass/Vol] 154 mg/dL Normal <=200 [facility] Comment on above: Performed By: #### B MP, LIPID, ALT #### [facility] [address] [address] [address] Eduardo Segura Cholesterol in HDL [Mass/Vol] 60 mg/dL Normal 40-60 [facility] Comment on above: Performed By: #### B MP, LIPID, ALT #### [facility] [address] [address] [address] Eduardo Segura Cholesterol in LDL [Mass/Vol] 75.4 mg/dL Normal [facility] Comment on above: Performed By: #### B MP, LIPID, ALT #### [facility] [address] [address] [address] Eduardo Segura Cholesterol.total/Cho lesterol in HDL [Mass ratio] 2.6 {ratio} Normal [facility] Comment on above: Performed By: #### B MP, LIPID, ALT #### [facility] [address] [address] [address] Eduardo Segura HDL NORMAL > or = 60 mg/dl - LOW CARDIOVASCULAR RISK <40 mg/dl - HIGH CARDIOVASCULAR RISK Normal [facility] Comment on above: Performed By: #### B MP, LIPID, ALT #### [facility] [address] [place] [address] Dr. Eduardo Segura LDL CALC NORMAL SEE BELOW Normal [facility] Comment on above: Result Comment: <100 mg/dl OPTIMAL 100 - 129 mg/dl NEAR OR ABOVE OPTIMAL 130 - 159 mg/dl BORDERLINE HIGH 160 - 189 mg/dl HIGH >190 mg/dl VERY HIGH Performed By: #### B MP, LIPID, ALT #### [facility] [address] [address] [address] Eduardo Segura Triglyceride [Mass/Vol] 93 mg/dL Normal <=150 [facility] Comment on above: Performed By: #### B MP, LIPID, ALT #### [facility] [address] [address] [address] Eduardo Segura VLDL CALC 18.6 mg/dL Normal [facility] Comment on above: Performed By: #### B MP, LIPID, ALT #### [facility] [address] [address] [address] Eduardo Segura PROF CHEM 8 (BAS METB)on Anion gap [Moles/Vol] 15.0 mmol/L Normal [facility] Comment on above: Performed By: #### B MP, LIPID, ALT #### [facility] [address] [place] [address] Dr. Eduardo Segura Calcium [Mass/Vol] 9.8 mg/dL Normal 8.5-10.1 [facility] Comment on above: Performed By: #### B MP, LIPID, ALT #### [facility] [address] [place] [address] Dr. Eduardo Segura Chloride [Moles/Vol] 105 mmol/L Normal 98-107 [facility] Comment on above: Performed By: #### B MP, LIPID, ALT #### [facility] [address] [address] [address] Eduardo Segura CO2 [Moles/Vol] 25.2 mmol/L Normal 21.0-32.0 [facility] Comment on above: Performed By: #### B MP, LIPID, ALT #### [facility] [address] [place] [address] Dr. Eduardo Segura Creatinine [Mass/Vol] 0.77 mg/dL Normal 0.55-1.02 [facility] Comment on above: Performed By: #### B MP, LIPID, ALT #### [facility] [address] [place] [address] Dr. Eduardo Segura EGFR-AF MALTESE >60 Normal >=60 [facility] Comment on above: Performed By: #### B MP, LIPID, ALT #### [facility] [address] [place] [address] Dr. Eduardo Segura EGFR-NON AF MALTESE >60 Normal >=60 [facility] Comment on above: Performed By: #### B MP, LIPID, ALT #### [facility] [address] [place] [address] Dr. Eduardo Segura Glucose [Mass/Vol] 142 mg/dL Critically high 74-106 [facility] Comment on above: Performed By: #### B MP, LIPID, ALT #### [facility] [address] [place] [address] Dr. Eduardo Segura Potassium [Moles/Vol] 4.2 mmol/L Normal 3.5-5.1 [facility] Comment on above: Performed By: #### B MP, LIPID, ALT #### [facility] [address] [place] [address] Dr. Eduardo Segura Sodium [Moles/Vol] 141 mmol/L Normal 136-145 [facility] Comment on above: Performed By: #### B MP, LIPID, ALT #### [facility] [address] [place] [address] Dr. Eduardo Segura Urea nitrogen [Mass/Vol] 17.0 mg/dL Normal 7.0-18.0 [facility] Comment on above: Performed By: #### B MP, LIPID, ALT #### [facility] [address] [place] [address] Dr. Eduardo Segura Urea nitrogen/Creatinine [Mass ratio] 22.1 mg/mg Normal [facility] Comment on above: Performed By: #### B MP, LIPID, ALT #### [facility] [address] [place] [address] Dr. Eduardo Segura [facility] 03-27-2022 ALT [Catalytic activity/Vol] 20 U/L Normal 14-59 [facility] Comment on above: Performed By: #### B MP, LIPID, ALT #### [facility] [address] [address] [address] Eduardo Segura Vital Signs Date Time Vital Sign Value Performing Clinician Facility 08-09-2023 15:00-0500 Body height 165.1 cm Edwin Ball Other [facility] Other 08-09-2023 15:00-0500 Body mass index (BMI) [Ratio] 32.88 kg/m2 Edwin Ball Other [facility] Other 08-09-2023 15:00-0500 Body weight 89.63 kg Edwin Ball Other [facility] Other 08-09-2023 15:00-0500 Diastolic blood pressure 94 mm[Hg] Edwin Ball Other [facility] Other 08-09-2023 15:00-0500 Respiratory rate 12 /min Edwin Ball Other [facility] Other 08-09-2023 15:00-0500 Systolic blood pressure 134 mm[Hg] Edwin Ball Other [facility] Other 06-08-2023 14:15-0400 Body height 165.1 cm Edwin Ball Other [facility] Other 06-08-2023 14:15-0400 Body mass index (BMI) [Ratio] 33.71 kg/m2 Edwin Ball Other [facility] Other 06-08-2023 14:15-0400 Body weight 91.9 kg Edwin Ball Other [facility] Other 06-08-2023 14:15-0400 Diastolic blood pressure 82 mm[Hg] Edwin Ball Other [facility] Other 06-08-2023 14:15-0400 Respiratory rate 12 /min Edwin Ball Other [facility] Other 06-08-2023 14:15-0400 Systolic blood pressure 128 mm[Hg] Edwin Ball Other [facility] Other 06-03-2023 11:30-0400 Body height 165.1 cm Edwin Ball Other [facility] Other 06-03-2023 11:30-0400 Body mass index (BMI) [Ratio] 33.71 kg/m2 Edwin Ball Other [facility] Other 06-03-2023 11:30-0400 Body weight 91.9 kg Edwin Ball Other [facility] Other 06-03-2023 11:30-0400 Diastolic blood pressure 80 mm[Hg] Edwin Ball Other [facility] Other 06-03-2023 11:30-0400 Respiratory rate 12 /min Edwin Ball Other [facility] Other 06-03-2023 11:30-0400 Systolic blood pressure 130 mm[Hg] Edwin Ball Other [facility] Other 04-12-2023 10:45-0400 Body height 165.1 cm Edwin Ball Other [facility] Other 04-12-2023 10:45-0400 Body mass index (BMI) [Ratio] 34.61 kg/m2 Edwin Ball Other [facility] Other 04-12-2023 10:45-0400 Body weight 94.35 kg Edwin Ball Other [facility] Other 04-12-2023 10:45-0400 Diastolic blood pressure 74 mm[Hg] Edwin Ball Other [facility] Other 04-12-2023 10:45-0400 Respiratory rate 20 /min Edwin Ball Other [facility] Other 04-12-2023 10:45-0400 Systolic blood pressure 116 mm[Hg] Edwin Ball Other [facility] Other 03-29-2023 10:30-0400 Body height 165.1 cm Edwin Ball Other [facility] Other 03-29-2023 10:30-0400 Body mass index (BMI) [Ratio] 34.48 kg/m2 Edwin Ball Other [facility] Other 03-29-2023 10:30-0400 Body weight 93.99 kg Edwin Ball Other [facility] Other 03-29-2023 10:30-0400 Diastolic blood pressure 70 mm[Hg] Edwin Ball Other [facility] Other 03-29-2023 10:30-0400 Respiratory rate 12 /min Edwin Ball Other [facility] Other 03-29-2023 10:30-0400 Systolic blood pressure 158 mm[Hg] Edwin Ball Other [facility] Other 11-25-2022 11:30-0400 Body height 165.1 cm Edwin Ball Other [facility] Other 11-25-2022 11:30-0400 Body mass index (BMI) [Ratio] 35.61 kg/m2 Edwin Ball Other [facility] Other 11-25-2022 11:30-0400 Body weight 97.07 kg Edwin Mohan Other [facility] Other 11-25-2022 11:30-0400 Diastolic blood pressure 76 mm[Hg] Edwin Ball Other [facility] Other 11-25-2022 11:30-0400 Respiratory rate 12 /min Edwin Ball Other [facility] Other 11-25-2022 11:30-0400 Systolic blood pressure 126 mm[Hg] Edwin Ball Other [facility] Other Encounters Encounter Date Encounter Type Care Provider Facility Start: 08-12-2023 End: 08-12-2023 ambulatory Edwin Mohan Other [facility] Other Start: 08-12-2023 Telephone encounter Edwin Ball [facility] Start: 08-11-2023 End: 08-11-2023 ambulatory Edwin Marques Other [facility] Other Start: 08-11-2023 Telephone encounter Edwin Ball [facility] Start: 08-09-2023 End: 08-09-2023 ambulatory Edwin Ball Other [facility] Other Start: 08-09-2023 Office outpatient vi sit 25 minutes Edwin Ball [facility] Start: 08-04-2023 End: 08-04-2023 ambulatory Edwin Ball Other [facility] Other Start: 08-04-2023 Telephone encounter Edwin Ball [facility] Start: 08-02-2023 End: 08-02-2023 ambulatory YANY MARTINEZ Not Available Start: 07-25-2023 End: 07-26-2023 ambulatory Raphael Parisi MD Facility:[facility] Start: 07-19-2023 End: 07-19-2023 ambulatory Edwin Ball Other [facility] Other Start: 07-19-2023 Office outpatient vi sit 15 minutes Edwin Ball [facility] Start: 06-20-2023 End: 06-21-2023 ambulatory Raphael Parisi MD Facility:[facility] Start: 06-16-2023 End: 06-16-2023 ambulatory Edwin Ball Other [facility] Other Start: 06-16-2023 Telephone encounter Edwin Ball [facility] Start: 06-15-2023 End: 06-15-2023 ambulatory Edwin Ball Other [facility] Other Start: 06-15-2023 Telephone encounter Edwin Ball [facility] Start: 06-13-2023 End: 06-14-2023 ambulatory Raphael Parisi MD Facility:[facility] Start: 06-09-2023 End: 06-09-2023 ambulatory Edwin Ball Other [facility] Other Start: 06-09-2023 Telephone encounter Edwin Ball [facility] Start: 06-08-2023 End: 06-08-2023 ambulatory Edwin Ball Other [facility] Other Start: 06-08-2023 Office outpatient vi sit 15 minutes Edwin Ball [facility] Start: 06-03-2023 End: 06-03-2023 ambulatory Edwin Ball Other [facility] Other Start: 06-03-2023 Office outpatient vi sit 25 minutes Edwin Ball [facility] Start: 05-25-2023 End: 05-25-2023 ambulatory Edwin Ball Other [facility] Other Start: 05-25-2023 Telephone encounter Edwin Ball [facility] Start: 05-23-2023 End: 05-23-2023 ambulatory Edwin Ball Facility:[facility] Start: 05-23-2023 End: 05-23-2023 ambulatory DO Edwin Ball Work Phone: [facility] Work Phone: Start: 05-23-2023 End: 05-23-2023 Patient encounter procedure DO Edwin Ball Work Phone: [facility] Work Phone: Start: 04-21-2023 End: 04-21-2023 ambulatory Edwin Ball Other [facility] Other Start: 04-21-2023 Telephone encounter Edwin Ball [facility] Start: 04-20-2023 End: 04-20-2023 ambulatory Edwin Ball Other [facility] Other Start: 04-20-2023 Telephone encounter Edwin Ball [facility] Start: 04-18-2023 End: 04-18-2023 ambulatory Edwin Ball Other [facility] Other Start: 04-18-2023 Telephone encounter Edwin Ball [facility] Start: 04-12-2023 End: 04-12-2023 ambulatory Edwin Ball Other [facility] Other Start: 04-12-2023 Office outpatient vi sit 15 minutes Edwin Ball [facility] Start: 04-12-2023 Telephone encounter Edwin Ball [facility] Start: 04-07-2023 End: 04-07-2023 ambulatory Edwin Ball Other [facility] Other Start: 04-07-2023 Telephone encounter Edwin Ball [facility] Start: 03-29-2023 End: 03-29-2023 ambulatory Edwin Ball Other [facility] Other Start: 03-29-2023 Office outpatient vi sit 15 minutes Edwin Ball [facility] Start: 01-08-[address] EDWIN MOHAN Facili ty:[facility] Start: 11-30-2022 End: 11-30-2022 ambulatory Edwin Mohan Other [facility] Other Start: 11-30-2022 Telephone encounter Edwin Mohan [facility] Start: 11-28-2022 End: 11-28-2022 ambulatory Edwin Mohan Other [facility] Other Start: 11-28-2022 Telephone encounter Edwin Mohan [facility] Start: 11-25-2022 End: 11-25-2022 ambulatory Edwin Mohan Other [facility] Other Start: 11-25-2022 Patient encounter procedure Edwin Mohan [facility] Start: 11-08-2022 End: 11-08-2022 ambulatory Edwin Mohan Other [facility] Other Start: 11-08-2022 Telephone encounter Edwin Mohan [facility] Start: 11-01-2022 End: 11-01-2022 ambulatory Edwin Mohan Other [facility] Other Start: 11-01-2022 Office outpatient vi sit 15 minutes Edwin Mohan [facility] Start: 10-19-2022 End: 10-19-2022 ambulatory Edwin Mohan Other [facility] Other Start: 10-19-2022 Telephone encounter Edwin Mohan [facility] Start: 07-22-2022 Adult health examination Edwin Mohan Other [facility] Other Start: 05-25-2022 End: 05-26-[address] EDWIN MOHAN Facility:[facility] Start: 03-27-2022 End: 03-28-[address] EDWIN MOHAN Facility:[facility] Procedures Date Procedure Procedure Detail Performing Clinician Start: 05-01-2018 Screening for malign ant neoplasm of colon Edwin Mohan Other Start: 08-01-2017 Screening for osteoporosis Edwin Mohan Other Depression screening Ana Mohan Other Screening for malign ant neoplasm of breast Edwin Mohan Other Screening for malign ant neoplasm of skin Edwin Mohan Other Immunizations Immunization Date Immunization Notes Care Provider Arley lezama 07-03-2022 influenza, high dose seasonal, preservative-free Edwin Mohan Other [facility] Other 06-23-2022 influenza, high dose seasonal, preservative-free Edwin Mohan Other [facility] Other 05-18-2022 COVID-19 Pfizer (bivalent) Edwin Mohan Other [facility] Other 12-12-2021 COVID-19 Pfizer Edwin Huggins jerardo Other [facility] Other 12-12-2021 COVID-19 Vaccine Pfi zer - Documentation Purposes Only Edwin Mohan Other [facility] Other 07-21-2021 influenza virus vaccine, split virus (incl. purified surface antigen) Edwin Mohan Other [facility] Other 05-22-2021 COVID-19 Vaccine Pfi zer - Documentation Purposes Only Edwin Mohan Other [facility] Other 10-08-2020 COVID-19 Vaccine Pfi zer - Documentation Purposes Only Edwin Mohan Other [facility] Other 09-17-2020 COVID-19 Vaccine Moderna - Documentation Purposes Only Edwin Mohan Other [facility] Other 09-17-2020 COVID-19 Vaccine Pfi zer - Documentation Purposes Only Edwin Mohan Other [facility] Other 04-30-2020 influenza virus vaccine, split virus (incl. purified surface antigen) Edwin Mohan Other [facility] Other 05-18-2019 pneumococcal polysaccharide vaccine, 23 valent Edwin Ball Other [facility] Other 05-01-2018 pneumococcal polysaccharide vaccine, 23 valent Edwin Mohan Other [facility] Other 08-02-2017 diphtheria, tetanus toxoids and acellular pertussis vaccine, unspecified formulation Edwin Mohan Other [facility] Other 06-05-2015 pneumococcal conjuga te vaccine, 13 valent Edwin Ball Other [facility] Other 06-04-2015 pneumococcal conjuga te vaccine, 13 valent Edwin Mohan Other [facility] Other Payers Date Payer Category Payer Self-pay 2022 Medicare 2022 Private Health Insurance 1958 Medicare [id number] [id number] [id number] 1959 Private Health Insurance CLI [id number] 1945 Unknown [id number] 1945 Unknown [id number] 1945 Unknown [id number] 2.16.84 [id number] 1945 Unknown [id number] 1945 Unknown [id number] 2.16. [id number] 1945 Unknown [id number] 2.16. [id number] 1945 Unknown [id number] 2.16. [id number] Unknown [id number] 2.16.8 [id number] Social History Date Type Detail Facility Sex Assigned At [employer] Other Start: 1945 Sex Assigned At Female F [facility] Clinical Notes 10-19-2022 to 08-09-2023 Note Date & Type Note Facility 08-09-2023 Evaluation note Encounter Date Diagnosis Assessment Notes Jul, Type 2 diabetes mellitus with hyperglycemia, without long-term current use of insulin (ICD-10 - E11.65) This patient is following a comprehensive diabetic treatment plan. They are checking their feet daily for calluses and nonhealing ulcers. They are being seen for yearly dilated eye examinations. Goals: SBP less than 130, LDL less than 100, FBS less than 140, A1C less than 7%. They are checking their BS daily, will which are reviewed at the office visit. Continue regular routine monitoring of A1C,] Microalbumin, Dilated eye exam and Foot exam Jul, ASHD (arteriosclerotic heart disease) (ICD-10 - I25.10) This patient is stable without activity related CP, dyspnea or lightheadedness. They are instructed to continue exercise and AHA diet plan. Continue secondary prevention measures. Jul, Primary hypertension (ICD-10 - I10) This patient is instructed to consume a healthy, low-fat, low-salt diet. They are also encouraged to continue exercise to achieve/maintain a normal BMI. Patient is instructed on home BP measurements: - rest for 5 minutes w/o talking- positioned w/ feet on floor and arm supported- average best 2/3 readings w/ goal < 135/85 Hold Atenolol and continue to monitor BP /HR Jul, Simple chronic bronchitis (ICD-10 - J41.0) Mucolytics as needed. DIMITRI as need for cough and wheezing f/u PUlmonary Jul, DUSTIN (obstructive sleep apnea) (ICD-10 - G47.33) This patient is aware of the benefits associated with DUSTIN: With continued use, the patient reduces the risk for ND, CVA, HTN, cardiac dysrhythmias and sudden cardiac deaths.The patient is also aware of the association between DUSTIN and morning headaches, daytime somnolence, fatigue and obesity, which also has been improved with continued use.The patient is compliant with treatment, wearing the equipment every night for greater than 4 hours.The patient is instructed to continue use of the CPAP for DUSTIN treatment. Jul, Restrictive lung disease (ICD-10 - J98.4) Cough and deep breathing IS 15x several times daily. Weight loss Jul, Pure hypercholesterolemia (ICD-10 - E78.00) Instructed on diet and exercise with continued statin therapy.Discusse d the beneficial effects of lowering cholesterol in reducing the risk for cerebrovascular and cardiovascular disease. Jul, Gastroesophageal reflux disease with esophagitis without hemorrhage (ICD-10 - K21.00) Avoid lying flat after eating. Avoid eating 2 hours prior to bedtime. Smaller, frequent meals may be better tolerated.Weight loss if overweight.PPI with any heartburn.Monito r for dysphagia. Jul, Chronic venous insufficiency (ICD-10 - I87.2) Avoid salt and elevate lower extremities, support stockings, inspect legs and feet daily for blisters and ulcerations. Jul, Pulmonary nodule (ICD-10 - R91.1) CT: 4mm nodule - 03/2023 4mm, in smoker would recommend repeat in 12 months. [facility] Other 12-14-2023 Evaluation note* Encounter Date Diagnosis Assessment Notes Treatment Notes Treatment Clinical Notes Jul, Restrictive lung disease (ICD-10 - J98.4) [facility] Other 11-28-2023 Evaluation note* Encounter Date Diagnosis Assessment Notes Treatment Notes Treatment Clinical Notes Jun, Acute non-recurrent maxillary sinusitis (ICD-10 - J01.00) Instructed to use Robitussin or Mucinex for cough, saline or Flonase NS for congestion, Tylenol for pain and fever. Jun, Type 2 diabetes mellitus with hyperglycemia, without long-term current use of insulin (ICD-10 - E11.65) BS may increase during acute illness No change in treatment necessary Jun, Suspected COVID-19 virus infection (ICD-10 - Z20.822) Send for COVID PCR - results negative [facility] Other 10-25-2023 Evaluation note* Encounter Date Diagnosis Assessment Notes Treatment Notes Treatment Clinical Notes May, Age-related osteoporosis without current pathological fracture (ICD-10 - M81.0) [facility] Other 10-19-2023 Evaluation note* Encounter Date Diagnosis Assessment Notes Treatment Notes Treatment Clinical Notes May, Acute bilateral thoracic back pain (ICD-10 - M54.6) [facility] Other 10-18-2023 Evaluation note* Encounter Date Diagnosis Assessment Notes Treatment Notes Treatment Clinical Notes May, Acute bilateral thoracic back pain (ICD-10 - M54.6) ROM exercises, heat/ice and stretching. Tylenol as needed, up to 1000mg tid. Tramadol for severe pain, up to bid Refer for pain management. May, Age-related osteoporosis without current pathological fracture (ICD-10 - M81.0) Repeat DEXA Continue Ca and Vit D supplements. Encouraged to pursue weight bearing exercises Consider Bisphosphonate therapy if DEXA reveals declining T scores Treatment required to reduce risk of fragility fractures May, Other obesity due to excess calories (ICD-10 - E66.09) This patient has been instructed on a low-fat, high-fiber diet. They are instructed to reduce calories, portion sizes and snacks. It is recommended that they exercise for 30 minutes, 3-5 times weekly. May, Body mass index [BMI] 34.0-34.9, adult (ICD-10 - Z68.34) [facility] Other 10-13-2023 Evaluation note* Encounter Date Diagnosis Assessment Notes Treatment Notes Treatment Clinical Notes May, Simple chronic bronchitis (ICD-10 - J41.0) Continue LABA/ICS Use DIMITRI as needed for cough/wheezing. Control allergies and GERD symptoms. Weight loss May, Restrictive lung disease (ICD-10 - J98.4) Weight loss important. Avoid exposure to dust, smoke and allergens. Continue treatment for DUSTIN Refer to [facility] for evaluation and treatment May, DUSTIN (obstructive sle ep apnea) (ICD-10 - G47.33) This patient is aware of the benefits associated with DUSTIN: With continued use, the patient reduces the risk for ND, CVA, HTN, cardiac dysrhythmias and sudden cardiac deaths.The patient is also aware of the association between DUSTIN and morning headaches, daytime somnolence, fatigue and obesity, which also has been improved with continued use.The patient is compliant with treatment, wearing the equipment every night for greater than 4 hours.The patient is instructed to continue use of the CPAP for DUSTIN treatment. May, Pulmonary nodule (ICD-10 - R91.1) According to guidelines should have repeat CT in 12 months but radiology report recommends 6mo. Schedule 6mo f/u CT May, ASHD (arteriosclerot ic heart disease) (ICD-10 - I25.10) This patient is stable without activity related CP, dyspnea or lightheadedness. They are instructed to continue exercise and AHA diet plan. Continue secondary prevention measures. May, Body mass index [BMI ] 33.0-33.9, adult (ICD-10 - Z68.33) May, Other obesity due to excess calories (ICD-10 - E66.09) This patient has been instructed on a low-fat, high-fiber diet. They are instructed to reduce calories, portion sizes and snacks. It is recommended that they exercise for 30 minutes, 3-5 times weekly. May, Gastroesophageal reflux disease with esophagitis without hemorrhage (ICD-10 - K21.00) Diet instructions: Smaller portions, avoid eating and laying flat, avoid eating or drinking prior to bedtime. Weight loss. May, Cigarette nicotine dependence in remission (ICD-10 - F17.211) Continue abstinence May, Primary hypertension (ICD-10 - I10) This patient is instructed to consume a healthy, low-fat, low-salt diet. They are also encouraged to continue exercise to achieve/maintain a normal BMI. [facility] Other 08-31-2023 Evaluation note* Encounter Date Diagnosis Assessment Notes Treatment Notes Treatment Clinical Notes Mar, Chronic bronchitis, simple (ICD-10 - J41.0) [facility] Other 08-30-2023 Evaluation note* Encounter Date Diagnosis Assessment Notes Treatment Notes Treatment Clinical Notes Mar, Chronic bronchitis, simple (ICD-10 - J41.0) [facility] Other 08-30-2023 Evaluation note* Encounter Date Diagnosis Assessment Notes Treatment Notes Treatment Clinical Notes Mar, Chronic bronchitis, simple (ICD-10 - J41.0) Mar, DOUGLAS (dyspnea on exertion) (ICD-10 - R06.09) [facility] Other 08-28-2023 Evaluation note* Encounter Date Diagnosis Assessment Notes Treatment Notes Treatment Clinical Notes Mar, Pulmonary nodule (ICD-10 - R91.1) [facility] Other 08-22-2023 Evaluation note* Encounter Date Diagnosis Assessment Notes Treatment Notes Treatment Clinical Notes Mar, Pulmonary nodule (ICD-10 - R91.1) [facility] Other 08-22-2023 Evaluation note* Encounter Date Diagnosis Assessment Notes Treatment Notes Treatment Clinical Notes Mar, Primary osteoarthritis of left knee (ICD-10 - M17.12) IA injection w/ improvement in pain. - can repeat in 3-4 months if needed Quad exercises, ice/heat and Tylenol. Avoid squatting or kneeling Mar, Acute bilateral thoracic back pain (ICD-10 - M54.6) ROM exercises, heat/ice and stretching. Tylenol as needed, up to 1000mg tid. Tramadol for severe pain, up to bid Refer for therapy Mar, Other obesity due to excess calories (ICD-10 - E66.09) This patient has been instructed on a low-fat, high-fiber diet. They are instructed to reduce calories, portion sizes and snacks. It is recommended that they exercise for 30 minutes, 3-5 times weekly. Mar, Body mass index [BMI ] 34.0-34.9, adult (ICD-10 - Z68.34) [facility] Other 08-17-2023 Evaluation note* Encounter Date Diagnosis Assessment Notes Treatment Notes Treatment Clinical Notes Mar, Acute bilateral low back pain without sciatica (ICD-10 - M54.50) [facility] Other 08-08-2023 Evaluation note* Encounter Date Diagnosis Assessment Notes Treatment Notes Treatment Clinical Notes Mar, ASHD (arteriosclerot ic heart disease) (ICD-10 - I25.10) This patient is stable without activity related CP, dyspnea or lightheadedness. They are instructed to continue exercise and AHA diet plan. Mar, Primary hypertension (ICD-10 - I10) This patient is instructed to consume a healthy, low-fat, low-salt diet. They are also encouraged to continue exercise to achieve/maintain a normal BMI. Mar, Type 2 diabetes mellitus with hyperglycemia, without long-term current use of insulin (ICD-10 - E11.65) This patient is following a comprehensive diabetic treatment plan. They are checking their feet daily for calluses and nonhealing ulcers. They are being seen for yearly dilated eye examinations. Goals: SBP less than 130, LDL less than 100, FBS less than 140, AC and A1C less than 7%. They are checking their BS daily, will which are reviewed at the office visit. Continue regular routine monitoring of A1C,] Microalbumin, Dilated eye exam and Foot exam Due for A1C in 2 mo Mar, Gastroesophageal reflux disease with esophagitis without hemorrhage (ICD-10 - K21.00) Diet instructions: Smaller portions, avoid eating and laying flat, avoid eating or drinking prior to bedtime. Weight loss. Had to restart her PPI due to heartburn and cough Mar, Pain in left knee (ICD-10 - M25.562) Previously improved symptoms w/ IA injection. Informed that her pain may worsen prior to improvement. Instructed to ice and rest over the next 24 hours. Mar, Primary osteoarthrit is of left knee (ICD-10 - M17.12) Quad exercises, ice/heat and Tylenol. Avoid squatting or kneeling. IA injections every 3 mo as needed. Continue weight loss [facility] Other 04-09-2023 Evaluation note* Encounter Date Diagnosis Assessment Notes Treatment Notes Treatment Clinical Notes Nov, Obstructive sleep apnea (adult) (pediatric) (ICD-10 - G47.33) AHI 34, CPAP14, [facility] Other 04-06-2023 Evaluation note* Encounter Date Diagnosis Assessment Notes Treatment Notes Treatment Clinical Notes Nov, Medicare annual wellness visit, subsequent (ICD-10 - Z00.00) Personalized health advice was given to the beneficiary including a written plan for screenings discussed and provided. Advanced care planning reviewed and/or information given as requested. Additional counseling was provided here today in regards to, [ ]. The above visit was performed by [ ], under direct supervision of [ ]. Document reviewed and amended by provider signed below. Nov, ASHD (arteriosclerot ic heart disease) (ICD-10 - I25.10) This patient is stable without activity related CP, dyspnea or lightheadedness. They are instructed to continue exercise and AHA diet plan. Nov, Type 2 diabetes mellitus with hyperglycemia, without long-term current use of insulin (ICD-10 - E11.65) This patient is following a comprehensive diabetic treatment plan. They are checking their feet daily for calluses and nonhealing ulcers. They are being seen for yearly dilated eye examinations. Goals: SBP less than 130, LDL less than 100, FBS less than 140, AC and A1C less than 7%. They are checking their BS daily, will which are reviewed at the office visit. A1C: Nov, Essential hypertensi on (ICD-10 - I10) This patient is instructed to consume a healthy, low-fat, low-salt diet. They are also encouraged to continue exercise to achieve/maintain a normal BMI. Nov, Obstructive sleep apnea (adult) (pediatric) (ICD-10 - G47.33) This patient is aware of the benefits associated with DUSTIN: With continued use, the patient reduces the risk for ND, CVA, HTN, cardiac dysrhythmias and sudden cardiac deaths.The patient is also aware of the association between DUSTIN and morning headaches, daytime somnolence, fatigue and obesity, which also has been improved with continued use.The patient is compliant with treatment, wearing the equipment every night for greater than 4 hours.The patient is instructed to continue use of the CPAP for DUSTIN treatment. Nov, High cholesterol (ICD-10 - E78.00) Diet and exercise with continued statin therapy. 06 Apr, 2023 Chronic bronchitis, simple (ICD-10 - J41.0) Continue abstinence from tobacco products. Doesn't qualify for LDCT chest Nov, Gastroesophageal reflux disease with esophagitis without hemorrhage (ICD-10 - K21.00) Nov, Recurrent major depressive disorder, in full remission (ICD-10 - F33.42) Nov, Screening mammogram for breast cancer (ICD-10 - Z12.31) SBE and yearly mammogram Nov, Age-related osteoporosis without current pathological fracture (ICD-10 - M81.0) Ca and Vitamin D supplements, weight bearing exercises and repeat DEXA this year Nov, High risk medication use (ICD-10 - Z79.899) [facility] Other 03-13-2023 Evaluation note* Encounter Date Diagnosis Assessment Notes Treatment Notes Treatment Clinical Notes Oct, Acute non-recurrent maxillary sinusitis (ICD-10 - J01.00) Instructed to use Flonase NS for congestion, Tessalon for cough, Tylenol for pain and fever. Oct, Acute cough (ICD-10 - R05.1) Head upright, push fluids and Tessalon perles [facility] Other 02-28-2023 Evaluation note* Encounter Date Diagnosis Assessment Notes Treatment Notes Treatment Clinical Notes Sep, Pure hypercholestero lemia (ICD-10 - E78.00) [facility] Other Evaluation noteNo InformationNort [employer] Other Evaluation noteNo assessment information available [facility] Work Phone: [employer] general Narrative - Reported* Type Description Date Medical History Essential hypertension Medical History ASHD (arteriosclerotic heart dis ease) Medical History Chronic venous insufficiency Medical History Chronic bronchitis, simple Medical History High cholesterol Medical History Lumbar spondylosis Medical History Obesity (BMI 30-39.9) Medical History Obstructive sleep apnea (adult) (pediatric) [facility] Other History general Narrative - Reported* Type Description Date Medical History Essential hypertension Medical History ASHD (arteriosclerotic heart dis ease) Medical History Chronic venous insufficiency Medical History Chronic bronchitis, simple Medical History High cholesterol Medical History Lumbar spondylosis Medical History Obesity (BMI 30-39.9) Medical History Obstructive sleep apnea (adult) (pediatric) Surgical History ERNA /BSO 1994 Surgical History TONSILLECTOMY Surgical History D&C Surgical History LHC Surgical History CYSTOSCOPY Surgical History URETHRAL DILATION 2006 Surgical History COLONSCOPY 2018 Hospitalization History SEE SURGICAL HX [facility] Other History general Narrative - Reported* Type Description Date Medical History Essential hypertension Medical History ASHD (arteriosclerotic heart dis ease) Medical History Chronic venous insufficiency Medical History Chronic bronchitis, simple Medical History High cholesterol Medical History Lumbar spondylosis Medical History Obesity (BMI 30-39.9) Medical History Obstructive sleep apnea (adult) (pediatric) Medical History Osteoporosis Surgical History ERNA /BSO 1993 Surgical History TONSILLECTOMY Surgical History D&C Surgical History LHC Surgical History CYSTOSCOPY Surgical History URETHRAL DILATION 2006 Surgical History COLONSCOPY 2018 Hospitalization History SEE SURGICAL HX [facility] Other History general Narrative - Reported* Type Description Date Medical History Essential hypertension Medical History ASHD (arteriosclerotic heart dis ease) Medical History Chronic venous insufficiency Medical History Chronic bronchitis, simple Medical History High cholesterol Medical History Lumbar spondylosis Medical History Obesity (BMI 30-39.9) Medical History Obstructive sleep apnea (adult) (pediatric) Medical History Osteoporosis Medical History Restrictive lung disease Surgical History ERNA /BSO 1993 Surgical History TONSILLECTOMY Surgical History D&C Surgical History LHC Surgical History CYSTOSCOPY Surgical History URETHRAL DILATION 2006 Surgical History COLONSCOPY 2018 Hospitalization History SEE SURGICAL HX [facility] Other Reason for referral (narrative)* Reason Referral for COPD an d RLD Diagnosis 1 Restrictive lung dis ease (J98.4) Diagnosis 2 Chronic bronchitis, simple (J41.0) Diagnosis 3 Pulmonary nodule (R9 1.1) Diagnosis 4 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 Obesity may contribute to respiratory complaints. Clinical Notes Labs, CT, PFT [facility] Other Reason for referral (narrative)* Reason Referral for persist ent thoracolumbar spine pain Diagnosis 1 Acute bilateral thor acic back pain (M54.6) Diagnosis 2 Lumbar spondylosis ( M47.816) Diagnosis 3 Age-related osteopor osis without current pathological fracture (M81.0) Referral Organization [facility] Referring Provider First Name Edwin Referring Provider Last Name Marques Referring Provider Specialty Internal Me dicine Referred Organization [facility] Referred Provider Freddie Cotton Referred Address [address] [place], [place],[address] Referred Provider Specialty Pain Medicin e Referral Priority Routine General Notes Patient w/ known deg enerative arthritis of the spine w/ persistent moderate to severe thoracolumbar spine pain w/ paraspinal muscle spasms. Completed PT w/ some temporary improvement. Stretching, Tylenol and Tramadol helping w/ the pain. Refer for alternative treatment for persistent back pain. [facility] Other Summary Purpose Family History No Family History Records FoundNo Family History Records FoundNo Family History Records FoundNo Family History Records Found Advance Directives Advance Directive Response Recorded Date/ Time Advance Directives No April 11:03am Chief Complaint and Reason for Visit Chief Complaint J41.0 R06.09 Additional Source Comments REASON FOR VISIT (unrecogniz ed section and content) Medication QuestionCongestio n [phone] ATBwellnessNo InformationCPAP Equipment?4 month follow upBack SpasmsNo InformationXR resultsreferral for PTNo InformationNo InformationNo InformationCT resultsDifferent InhalerPFT resultstesting resultsback painMedicationNo InformationDexa [phone] cold/sore throatNo Information4 month Follow upHR-AtenololUpdate INFORMATION SOURCE (unrecogn ized section and content) DATE CREATED AUTHOR 01/01/2023 [facility] DATE CREATED AUTHOR AUTHOR'S ORGANIZ ATION 05/28/2023 [facility] DATE CREATED AUTHOR AUTHOR'S ORGANIZ ATION 08/04/2023 [facility] DATE CREATED AUTHOR AUTHOR'S ORGANIZ ATION 08/05/2023 [facility] Care Teams (unrecognized sec tion and content) Team Status: Active Member Role Status Dates Edwin Mohan , Primary Care Provider Active Team Status: Inactive Member Role Status Dates Edwin Mohan , Primary Care Provider, Attending Jessi mclaughlin Active Goals (unrecognized section and content) Goals may be documented in a n alternate section FOR RECORDS PERTAINING TO PATIENTS WHO ARE OR HAVE BEEN ENROLLED IN A CHEMICAL DEPENDENCY/SUBSTANCEABUSE PROGRAM, SOME INFORMATION MAY BE OMITTED. This clinical summary was aggregated from multiple sources. Caution should be exercised in using it in the provision of clinical care. This summary normalizes information from multiple sources, and as a consequence, information in this document may materially change the coding, format and clinical context of patient data. In addition, data may be omitted in some cases. CLINICAL DECISIONS SHOULD BE BASED ON THE PRIMARY CLINICAL RECORDS. [facility] [employer] [facility]. provides no warranty or guarantee of the accuracy or completeness of information in this document.
--- NOTE | 2023-08-31 13:37 | PM.CN ---
Consult Note: HPI Data of Consult Patient: known to practice within the last 3 years Consult date: 06/13/23 Requesting Physician: Sunshine Chaparro NP Primary Care Provider: Edwin Mohan DO Consult Narrative Reason for consult: f/u Narrative: Chelly blackwell pleasant 78 year old female presents for evaluation and management of chronic pain. Pain today 6-8/10 in left knee, right knee 0/10. Patient receiving greater than 50% overall pain relief left knee pain and >90% improvement in right knee post genicular RFA. cc:: CC: Sunshine Chaparro NP Review of Systems ROS Status of ROS 10 or more systems reviewed and unremarkable except as noted in history and below Musculoskeletal Reports: joint pain (bilateral knee pain) PFSH PFSH Medical History High cholesterol ?E78.00 - Pure hypercholesterolemia, unspecified (ICD-10) Acid reflux ?K21.9 - Gastro-esophageal reflux disease without esophagitis (ICD-10) Hypertension ?I10 - Essential (primary) hypertension (ICD-10) Surgical History H/O: hysterectomy ?Z90.710 - Acquired absence of both cervix and uterus (ICD-10) Meds Home Medications and Allergies Home Medications Medication Instructions Recorded Confirmed Type albuterol sulfate 90 mcg/actuation 2 puff inhalation Q4H PRN 06/14/23 07/25/23 History aerosol inhaler shortness of breath or wheezing aspirin 81 mg tablet,delayed 81 mg PO DAILY 06/14/23 07/25/23 History release (Adult Aspirin Regimen) atenolol 25 mg tablet 25 mg PO Q24H 06/14/23 07/25/23 History atorvastatin 40 mg tablet 20 mg PO DAILY 06/14/23 07/25/23 History hydrochlorothiazide 25 mg tablet 25 mg PO DAILY 06/14/23 07/25/23 History loratadine 10 mg capsule 10 mg PO DAILY 06/14/23 07/25/23 History losartan 100 mg tablet 100 mg PO DAILY 06/14/23 07/25/23 History omeprazole 40 mg capsule,delayed 40 mg PO DAILY 06/14/23 07/25/23 History release tramadol 50 mg tablet 50 mg PO Q6H PRN pain 06/14/23 07/25/23 History Allergies Allergy/AdvReac Type Severity Reaction Status Date / Time cefaclor [From Ceclor] Allergy Verified 07/25/23 07:37 ciprofloxacin [From Cipro] Allergy Verified 07/25/23 07:37 Exam Narrative Exam Narrative: Psych-alert and oriented x 3. Attentive and appropriate, constitutionally normal, displays normal mood and affect per situation.? There are no obvious deficits in memory, reasoning, or intellect.? Skin-no obvious rashes, bruising, erythema noted to the patient's area of pain. Extremities- extremities are warm with minimal edema and palpable pulses. Lumbar-no significant tenderness to palpation noted in the lumbar spine and paraspinal musculature.? Pain is elicited with extension, and lateral rotation of the lumbar spine. Range of motion is slightly diminished with these motions due to pain. Facet loading maneuvers are positive bilaterally and do appear to be concordant with the patient's normal complaints of pain.? Thoracic - tenderness to palpation in midback. Pain radiates outward around T5, 6, 7 dermatomal regions. Knee-examination of the bilateral knee reveals tenderness to palpation over the superior, inferior, lateral, and medial aspect of the knee.? Some swelling is noted without erythema. Pain is elicited with flexion and extension of the knee both actively and passively.? Some grinding is noted with these motions.? There is no notable ligamental laxity or instability. Coordination remains intact.? Gait remains non-antalgic. Constitutional Documenting provider has reviewed patient's vital signs: yes Common normals: no apparent distress, oriented x3, healthy appearing, alert and well nourished General appearance: cooperative [facility] Common normals: normocephalic, hearing grossly normal bilaterally and moist oral mucous membranes Head and scalp: normocephalic Eye Common normals: PERRL Pupil: PERRL Neck & C-Spine Common normals: full ROM General: normal visual inspection Chest Common normals: inspection of chest normal Respiratory Common normals: normal respiratory effort, no retractions and no use of accessory muscles Neuro Common normals: oriented x3, CN's II-XII intact bilaterally, moves all extremities, no focal motor deficits, no sensory deficits noted and deep tendon reflexes 2+ bilaterally Sensorium/orientation: alert Motor exam: strength 5/5 throughout and no movement abnormalities noted Psych Common normals: mental status grossly normal, thought process normal, cooperative, affect normal, speech normal and activity/motor behavior normal Speech: normal speech Thought process: normal thought process Assessment and Plan Assessment and Plan (1) Osteoarthritis of knees, bilateral: (2) Effusion, left knee: (3) Lumbar spondylosis: (4) Lumbago: Plan referral to Dr Ram for left knee pain post genicular RFA and left knee effusion, patient receiving greater than 50% overall pain relief left knee pain and >90% improvement in right knee post genicular RFA f/u with our office in 6 months, sooner if needed
== END 2023-08-31 12:55 | disposition home or self-care (01) ==
LOC: PM 12:54
PROVIDERS: PCP Internal Medicine; Visit Provider Nurse Practitioner
DX: M17.0 Bilateral primary osteoarthritis of knee (principal); M25.462 Effusion, left knee; M47.816 Spondylosis without myelopathy or radiculopathy, lumbar region; M54.50 Low back pain, unspecified
CPT/HCPCS: G0463

== ENCOUNTER 2023-09-26 10:26 | Outpatient (OUT) | payer MEDICARE, SELFPAY ==
--- NOTE | 2023-09-26 | XR_ITS ---
The [address] [address] Patient Name: MARIA ELENA ALLEN MRN: [id number] date: 1945 Sex: F Assigned Patient Location: [facility] Current Patient Location: [facility] Accession/Order Number: [id number] Exam Date: 09/26/2023 11:23 Report Date: 09/26/2023 11:33 At the request of: AMEE NEGRON Procedure: XR knee JESSENIA 4V EXAM: XR knee JESSENIA 4V HISTORY: LEFT KNEE PAIN COMPARISON: None. TECHNIQUE: 4 views FINDINGS: Severe tricompartmental degenerative changes of the knee joint. No acute fracture or dislocation. Soft tissue swelling. XR/XR knee JESSENIA 4V IMPRESSION: Severe tricompartmental degenerative changes as above. Electronically authenticated by: DIPTI SPARKS Date: 09/26/2023 11:33
--- OUTSIDE RECORDS SUMMARY | 2023-09-26 10:29 | XMS_ITS | CCD ---
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 Name Role Phone Edwin Mohan Unavailable MARQUES, DR PINEDA Admitting Unavailable MARQUES, DR PINEDA Attending Unavailable MARQUES, DR PINEDA Primary Care Unavailable MARQUES, DR PINEDA Consulting Unavailable MARQUES, DR PINEDA Admitting Unavailable MARQUES, DR PINEDA Attending Unavailable MARQUES, DR PINEDA Primary Care Unavailable MARQUES, DR PINEDA Consulting Unavailable FRANCA, DR BHARTI De La Rosa Consulting Unavailable MARQUES, DR PINEDA Admitting Unavailable BALL, DR PINEDA Attending Unavailable MARQUES, DR PINEDA Primary Care Unavailable Marques, DO Pineda Primary Care Provider [phone] DO Edwin Mohan Attending Provider Edwin Mohan Attending Unavailable Marques, Edwin Primary Care Unavailable Edwin Mohan Admitting Unavailable Ailin CHO, Raphael Luna Attending Unavailable Ailin CHO, Raphael Luna Attending Unavailable Ailin CHO, Raphael Luna Attending Unavailable ANGEL CAMPOS Attending Unavailable YANY MARTINEZ Attending Unavailable Allergies Allergy Classification Reported Allergen(s) Allergy Type Date of Onset Reaction(s) Facility (7 sources) Cefaclor; Translations: [Ceclor] Drug Allergy Unknown [facility] Repository (20 sources) Ciprofloxacin Drug Allergy Unknown [facility] Other (1 source) Ciprofloxacin Drug Allergy [facility] Repository (1 source) Robafen DM Cough-Chest Congest Drug allergy (disorder) [facility] Repository (20 sources) Ceclor *CEPHALOSPORINS* Propensity to adverse reactions Unknown [facility] Other Medications Current Medications Medication Drug Class(es) Dates Sig (Normalized) Sig (Original) [id number] 200 actuat albuterol 0.09 mg/actuat metered dose inhaler (13 sources) beta2-Adrenergic Agonist Start: 08-31-2023 take 2 puff(s) by inhalation every four [...] Coronary arteriosclerosis; 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 Admission #: [id number] Family : Order #: [id number] CLICK HERE TO VIEW EXAM RADIOLOGY REPORT [...] Treatments None Family Cancers None LOCATION: [facility] BREAST COMPOSITION: Scattered areas fibroglandular density. FINDINGS: [...] MD on 05/26/2022 at 07:48 Normal [facility] CBC AUTO DIFFon 03-27-2022 BASO # 0.0 103/ul Normal 0.0-0.1 [facility] Comment on above: Performed By: #### C BC #### [facility] [address] [address] [address] Eduardo Segura Basophils/100 WBC (Bld) 0.3 % Normal 0.2-2.0 [facility] Comment on above: Performed By: #### C BC #### [facility] [address] [place] [address] Dr. Eduardo Segura EO # 0.3 103/ul Normal 0.0-0.7 [facility] Comment on above: Performed By: #### C BC #### [facility] [address] [place] [address] Dr. Eduardo Segura Eosinophils/100 WBC (Bld) 4.3 % Normal 0.9-7.0 [facility] Comment on above: Performed By: #### C BC #### [facility] [address] [place] [address] Dr. Eduardo Segura Erythrocyte distribution width (RBC) [Ratio] 13.7 % Normal 11.0-15.0 [facility] Comment on above: Performed By: #### C BC #### [facility] [address] [place] [address] Dr. Eduardo Segura Hematocrit (Bld) [Volume fraction] 42.6 % Normal 36.0-48.0 [facility] Comment on above: Performed By: #### C BC #### [facility] [address] [place] [address] Dr. Eduardo Segura Hemoglobin (Bld) [Mass/Vol] 14.1 g/dL Normal 12.0-16.0 [facility] Comment on above: Performed By: #### C BC #### [facility] [address] [place] [address] Dr. Eduardo Sgeura IG # 0.02 10e3/ul Normal 0.00-0.03 [facility] Comment on above: Performed By: #### C BC #### [facility] [address] [place] [address] Dr. Eduardo Segura IG % 0.3 % Normal 0.0-0.5 [facility] Comment on above: Performed By: #### C BC #### [facility] [address] [place] [address] Dr. Eduardo Segura LYMPH # 2.3 103/ul Normal 1.2-3.8 [facility] Comment on above: Performed By: #### C BC #### [facility] [address] [place] [address] Dr. Eduardo Segura Lymphocytes/100 WBC (Bld) 31.9 % Normal 20.5-60.0 [facility] Comment on above: Performed By: #### C BC #### [facility] [address] [place] [address] Dr. Eduardo Segura MANUAL DIFF REQ NO Normal [facility] Comment on above: Performed By: #### C BC #### [facility] [address] [place] [address] Dr. Eduardo Segura MCH (RBC) [Entitic mass] 31.1 pg Normal 26.7-34.0 [facility] Comment on above: Performed By: #### C BC #### [facility] [address] [place] [address] Dr. Eduardo Segura MCHC (RBC) [Mass/Vol] 33.1 g/dL Normal 29.9-35.2 [facility] Comment on above: Performed By: #### C BC #### [facility] [address] [place] [address] Dr. Eduardo Segura MCV (RBC) [Entitic vol] 94.0 fL Normal 81.0-99.0 [facility] Comment on above: Performed By: #### C BC #### [facility] [address] [place] [address] Dr. Eduardo Segura MONO # 0.6 103/ul Normal 0.3-0.8 [facility] Comment on above: Performed By: #### C BC #### [facility] [address] [place] [address] Dr. Eduardo Segura Monocytes/100 WBC (Bld) 7.7 % Normal 1.7-12.0 [facility] Comment on above: Performed By: #### C BC #### [facility] [address] [place] [address] Dr. Eduardo Segura NEUT # 4.0 103/ul Normal 1.4-6.5 [facility] Comment on above: Performed By: #### C BC #### [facility] [address] [address] [address] Eduardo Segura Neutrophils/100 WBC (Bld) 55.5 % Normal 43.0-75.0 [facility] Comment on above: Performed By: #### C BC #### [facility] [address] [address] [address] Eduardo Segura Platelet mean volume (Bld) [Entitic vol] 10.2 fL Normal 9.5-13.5 [facility] Comment on above: Performed By: #### C BC #### [facility] [address] [place] [address] Dr. Eduardo Segura PLT 286 103/ul Normal 150-450 [facility] Comment on above: Performed By: #### C BC #### [facility] [address] [place] [address] Dr. Eduardo Segura RBC 4.53 106/ul Normal 4.20-5.40 [facility] Comment on above: Performed By: #### C BC #### [facility] [address] [place] [address] Dr. Eduardo Segura WBC 7.2 103/ul Normal 4.0-11.0 [facility] Comment on above: Performed By: #### C BC #### [facility] [address] [place] [address] Dr. Eduardo Segura GLYCOHEMOGLOBIN A1Con 2021 ADA RECOMMENDATION SEE BELOW Normal [facility] Comment on above: Result Comment: ADA RECOMMENDED LIMIT 4.0 - 6.0 ADA THERAPEUTIC TARGET < 7.0 ACTION SUGGESTED > 7.0 Performed By: #### A 1C #### [facility] [address] [place] [address] Dr. Eduardo Segura Glucose [Mass/Vol] 134 mg/dL Normal [facility] Comment on above: Performed By: #### A 1C #### [facility] [address] [place] [address] Dr. Eduardo Segura HbA1c (Bld) [Mass fraction] 6.3 % Critically high 4.5-6.2 [facility] Comment on above: Performed By: #### A 1C #### [facility] [address] [address] [address] Eduardo Segura LIPID PROFILEon 03-27-2022 CHOL-HDL RATIO NORM SEE BELOW Normal [facility] Comment on above: Result Comment: 3.3 - 4.4 LOW RISK 4.4 - 7.1 AVERAGE RISK 7.1 - 11.0 MODERATE RISK >11.0 HIGH RISK Performed By: #### B MP, LIPID, ALT #### [facility] [address] [address] [address] Eduardo Segura Cholesterol [Mass/Vol] 154 mg/dL Normal <=200 [facility] Comment on above: Performed By: #### B MP, LIPID, ALT #### [facility] [address] [address] [address] Eduardo Segura Cholesterol in HDL [Mass/Vol] 60 mg/dL Normal 40-60 [facility] Comment on above: Performed By: #### B MP, LIPID, ALT #### [facility] [address] [address] [address] Eduardo Segura Cholesterol in LDL [Mass/Vol] 75.4 mg/dL Normal [facility] Comment on above: Performed By: #### B MP, LIPID, ALT #### [facility] [address] [address] [address] Eduardo Segura Cholesterol.total/Cho lesterol in HDL [Mass ratio] 2.6 {ratio} Normal [facility] Comment on above: Performed By: #### B MP, LIPID, ALT #### [facility] [address] [address] [address] Eduardo Segura HDL NORMAL > or = 60 mg/dl - LOW CARDIOVASCULAR RISK <40 mg/dl - HIGH CARDIOVASCULAR RISK Normal [facility] Comment on above: Performed By: #### B MP, LIPID, ALT #### [facility] [address] [place] [address] Dr. Eduardo Segura LDL CALC NORMAL SEE BELOW Normal [facility] Comment on above: Result Comment: <100 mg/dl OPTIMAL 100 - 129 mg/dl NEAR OR ABOVE OPTIMAL 130 - 159 mg/dl BORDERLINE HIGH 160 - 189 mg/dl HIGH >190 mg/dl VERY HIGH Performed By: #### B MP, LIPID, ALT #### [facility] [address] [address] [address] Eduardo Segura Triglyceride [Mass/Vol] 93 mg/dL Normal <=150 [facility] Comment on above: Performed By: #### B MP, LIPID, ALT #### [facility] [address] [address] [address] Eduardo Segura VLDL CALC 18.6 mg/dL Normal [facility] Comment on above: Performed By: #### B MP, LIPID, ALT #### [facility] [address] [address] [address] Eduardo Segura PROF CHEM 8 (BAS METB)on Anion gap [Moles/Vol] 15.0 mmol/L Normal [facility] Comment on above: Performed By: #### B MP, LIPID, ALT #### [facility] [address] [place] [address] Dr. Eduardo Segura Calcium [Mass/Vol] 9.8 mg/dL Normal 8.5-10.1 [facility] Comment on above: Performed By: #### B MP, LIPID, ALT #### [facility] [address] [place] [address] Dr. Eduardo Segura Chloride [Moles/Vol] 105 mmol/L Normal 98-107 [facility] Comment on above: Performed By: #### B MP, LIPID, ALT #### [facility] [address] [place] [address] Dr. Eduardo Segura CO2 [Moles/Vol] 25.2 mmol/L Normal 21.0-32.0 [facility] Comment on above: Performed By: #### B MP, LIPID, ALT #### [facility] [address] [place] [address] Dr. Eduardo Segura Creatinine [Mass/Vol] 0.77 mg/dL Normal 0.55-1.02 [facility] Comment on above: Performed By: #### B MP, LIPID, ALT #### [facility] [address] [place] [address] Dr. Eduardo Segura EGFR-AF SAMOAN >60 Normal >=60 [facility] Comment on above: Performed By: #### B MP, LIPID, ALT #### [facility] [address] [address] [address] Eduardo Segura EGFR-NON AF SAMOAN >60 Normal >=60 [facility] Comment on above: Performed By: #### B MP, LIPID, ALT #### [facility] [address] [address] [address] Eduardo Segura Glucose [Mass/Vol] 142 mg/dL Critically high 74-106 [facility] Comment on above: Performed By: #### B MP, LIPID, ALT #### [facility] [address] [address] [address] Eduardo Segura Potassium [Moles/Vol] 4.2 mmol/L Normal 3.5-5.1 [facility] Comment on above: Performed By: #### B MP, LIPID, ALT #### [facility] [address] [place] [address] Dr. Eduardo Segura Sodium [Moles/Vol] 141 mmol/L Normal 136-145 [facility] Comment on above: Performed By: #### B MP, LIPID, ALT #### [facility] [address] [place] [address] Dr. Eduadro Segura Urea nitrogen [Mass/Vol] 17.0 mg/dL Normal 7.0-18.0 [facility] Comment on above: Performed By: #### B MP, LIPID, ALT #### [facility] [address] [place] [address] Dr. Eduardo Segura Urea nitrogen/Creatinine [Mass ratio] 22.1 mg/mg Normal [facility] Comment on above: Performed By: #### B MP, LIPID, ALT #### [facility] [address] [place] [address] Dr. Eduardo Segura [facility] 03-27-2022 ALT [Catalytic activity/Vol] 20 U/L Normal 14-59 [facility] Comment on above: Performed By: #### B MP, LIPID, ALT #### [facility] [address] [place] [address] Dr. Eduardo Segura Vital Signs Date Time Vital Sign Value Performing Clinician Facility 08-09-2023 15:00-0500 Body height 165.1 cm Edwin Ball Other [facility] Other 08-09-2023 15:00-0500 Body mass index (BMI) [Ratio] 32.88 kg/m2 Edwin Ball Other [facility] Other 08-09-2023 15:00-0500 Body weight 89.63 kg Edwin Ball Other [facility] Other 08-09-2023 15:00-0500 Diastolic blood pressure 94 mm[Hg] Edwin Ball Other [facility] Other 08-09-2023 15:00-0500 Respiratory rate 12 /min Edwin Ball Other [facility] Other 08-09-2023 15:00-0500 Systolic blood pressure 134 mm[Hg] Edwin Ball Other [facility] Other 06-08-2023 14:15-0400 Body height 165.1 cm Edwin Ball Other [facility] Other 06-08-2023 14:15-0400 Body mass index (BMI) [Ratio] 33.71 kg/m2 Edwin Ball Other [facility] Other 06-08-2023 14:15-0400 Body weight 91.9 kg Edwin Ball Other [facility] Other 06-08-2023 14:15-0400 Diastolic blood pressure 82 mm[Hg] Edwin Ball Other [facility] Other 06-08-2023 14:15-0400 Respiratory rate 12 /min Edwin Ball Other [facility] Other 06-08-2023 14:15-0400 Systolic blood pressure 128 mm[Hg] Edwin Ball Other [facility] Other 06-03-2023 11:30-0400 Body height 165.1 cm Edwin Ball Other [facility] Other 06-03-2023 11:30-0400 Body mass index (BMI) [Ratio] 33.71 kg/m2 Edwin Ball Other [facility] Other 06-03-2023 11:30-0400 Body weight 91.9 kg Edwin Ball Other [facility] Other 06-03-2023 11:30-0400 Diastolic blood pressure 80 mm[Hg] Edwin Ball Other [facility] Other 06-03-2023 11:30-0400 Respiratory rate 12 /min Edwin Ball Other [facility] Other 06-03-2023 11:30-0400 Systolic blood pressure 130 mm[Hg] Edwin Ball Other [facility] Other 04-12-2023 10:45-0400 Body height 165.1 cm Edwin Ball Other [facility] Other 04-12-2023 10:45-0400 Body mass index (BMI) [Ratio] 34.61 kg/m2 Edwin Ball Other [facility] Other 04-12-2023 10:45-0400 Body weight 94.35 kg Edwin Ball Other [facility] Other 04-12-2023 10:45-0400 Diastolic blood pressure 74 mm[Hg] Edwin Ball Other [facility] Other 04-12-2023 10:45-0400 Respiratory rate 20 /min Edwin Ball Other [facility] Other 04-12-2023 10:45-0400 Systolic blood pressure 116 mm[Hg] Edwin Ball Other [facility] Other 03-29-2023 10:30-0400 Body height 165.1 cm Edwin Ball Other [facility] Other 03-29-2023 10:30-0400 Body mass index (BMI) [Ratio] 34.48 kg/m2 Edwin Ball Other [facility] Other 03-29-2023 10:30-0400 Body weight 93.99 kg Edwin Ball Other [facility] Other 03-29-2023 10:30-0400 Diastolic blood pressure 70 mm[Hg] Edwin Ball Other [facility] Other 03-29-2023 10:30-0400 Respiratory rate 12 /min Edwin Ball Other [facility] Other 03-29-2023 10:30-0400 Systolic blood pressure 158 mm[Hg] Edwin Ball Other [facility] Other 11-25-2022 11:30-0400 Body height 165.1 cm Edwin Ball Other [facility] Other 11-25-2022 11:30-0400 Body mass index (BMI) [Ratio] 35.61 kg/m2 Edwin Ball Other [facility] Other 11-25-2022 11:30-0400 Body weight 97.07 kg Edwin Ball Other [facility] Other 11-25-2022 11:30-0400 Diastolic blood pressure 76 mm[Hg] Edwin Ball Other [facility] Other 11-25-2022 11:30-0400 Respiratory rate 12 /min Edwin Ball Other [facility] Other 11-25-2022 11:30-0400 Systolic blood pressure 126 mm[Hg] Edwin Ball Other [facility] Other Encounters Encounter Date Encounter Type Care Provider Facility Start: 09-19-2023 End: 09-19-2023 ambulatory ANGEL CAMPOS Not Available Start: 08-12-2023 End: 08-12-2023 ambulatory Edwin Ball Other [facility] Other Start: 08-12-2023 Telephone encounter Edwin Ball [facility] Start: 08-11-2023 End: 08-11-2023 ambulatory Edwin Ball Other [facility] Other Start: 08-11-2023 Telephone encounter Edwin Ball [facility] Start: 08-09-2023 End: 08-09-2023 ambulatory Edwin Ball Other [facility] Other Start: 08-09-2023 Office outpatient vi sit 25 minutes Edwin Ball [facility] Start: 08-04-2023 End: 08-04-2023 ambulatory Edwin Ball Other [facility] Other Start: 08-04-2023 Telephone encounter Edwin Ball [facility] Start: 08-02-2023 End: 08-02-2023 ambulatory YANY MARTINEZ Not Available Start: 07-25-2023 End: 07-26-2023 ambulatory Raphael Parisi MD Facility: [facility] Start: 07-19-2023 End: 07-19-2023 ambulatory Edwin Marques Other [facility] Other Start: 07-19-2023 Office outpatient vi sit 15 minutes Edwin Ball [facility] Start: 06-20-2023 End: 06-21-2023 [facility] Start: 06-16-2023 End: 06-16-2023 ambulatory Edwin Ball Other [facility] Other Start: 06-16-2023 Telephone encounter Edwin Mohan [facility] Start: 06-15-2023 End: 06-15-2023 ambulatory Edwin Ball Other [facility] Other Start: 06-15-2023 Telephone encounter Edwin Mohan [facility] Start: 06-13-2023 End: 06-14-2023 ambulatory Raphael Parisi MD Facility: [facility] Start: 06-09-2023 End: 06-09-2023 ambulatory Edwin Ball Other [facility] Other Start: 06-09-2023 Telephone encounter Edwin Marques [facility] Start: 06-08-2023 End: 06-08-2023 ambulatory Edwin Ball Other [facility] Other Start: 06-08-2023 Office outpatient vi sit 15 minutes Edwin Ball [facility] Start: 06-03-2023 End: 06-03-2023 ambulatory Edwin Ball Other [facility] Other Start: 06-03-2023 Office outpatient vi sit 25 minutes Edwin Ball [facility] Start: 05-25-2023 End: 05-25-2023 ambulatory Edwin Ball Other [facility] Other Start: 05-25-2023 Telephone encounter Edwin Ball [facility] Start: 05-23-2023 End: 05-23-2023 ambulatory Edwin Ball Facility:[facility] Start: 05-23-2023 End: 05-23-2023 ambulatory DO Edwin Ball Work Phone: [facility] Work Phone: Start: 05-23-2023 End: 05-23-2023 Patient encounter procedure DO Edwin Ball Work Phone: [facility] Work Phone: Start: 04-21-2023 End: 04-21-2023 ambulatory Edwin Mohan Other [facility] Other Start: 04-21-2023 Telephone encounter Edwin Ball [facility] Start: 04-20-2023 End: 04-20-2023 ambulatory Edwin Mohan Other [facility] Other Start: 04-20-2023 Telephone encounter Edwin Ball [facility] Start: 04-18-2023 End: 04-18-2023 ambulatory Edwin Ball Other [facility] Other Start: 04-18-2023 Telephone encounter Edwin Ball [facility] Start: 04-12-2023 End: 04-12-2023 ambulatory Edwin Ball Other [facility] Other Start: 04-12-2023 Office outpatient vi sit 15 minutes Edwin Ball [facility] Start: 04-12-2023 Telephone encounter Edwin Ball [facility] Start: 04-07-2023 End: 04-07-2023 ambulatory Edwin Ball Other [facility] Other Start: 04-07-2023 Telephone encounter Edwin Ball [facility] Start: 03-29-2023 End: 03-29-2023 ambulatory Edwin Ball Other [facility] Other Start: 03-29-2023 Office outpatient vi sit 15 minutes Edwin Mohan [facility] Start: 01-08-[address] EDWIN MOHAN Facili ty:[facility] Start: 11-30-2022 End: 11-30-2022 ambulatory Edwin Mohan Other [facility] Other Start: 11-30-2022 Telephone encounter Edwin Mohan [facility] Start: 11-28-2022 End: 11-28-2022 ambulatory Edwin Mohan Other [facility] Other Start: 11-28-2022 Telephone encounter Edwin Mohan [facility] Start: 11-25-2022 End: 11-25-2022 ambulatory Edwin Mohan Other [facility] Other Start: 11-25-2022 Patient encounter procedure Edwin Mohan [facility] Start: 11-08-2022 End: 11-08-2022 ambulatory Edwin Mohan Other [facility] Other Start: 11-08-2022 Telephone encounter Edwin Mohan [facility] Start: 11-01-2022 End: 11-01-2022 ambulatory Edwin Mohan Other [facility] Other Start: 11-01-2022 Office outpatient vi sit 15 minutes Edwin Mohan [facility] Start: 10-19-2022 End: 10-19-2022 ambulatory Edwin Mohan Other [facility] Other Start: 10-19-2022 Telephone encounter Edwin Mohan [facility] Start: 07-22-2022 Adult health examination Edwin Mohan Other [facility] Other Start: 05-25-2022 End: 05-26-[address] [...] high dose seasonal, preservative-free Edwin Mohan Other [facility] Other 06-23-2022 influenza, high dose seasonal, preservative-free Edwin Mohan Other [facility] Other 05-18-2022 COVID-19 Pfizer (bivalent) Edwin Mohan Other [facility] Other 12-12-2021 COVID-19 Pfizer Edwin kutrz Other [facility] Other 12-12-2021 COVID-19 Vaccine Pfi zer - Documentation Purposes Only Edwin Mohan Other [facility] Other 07-21-2021 influenza virus vaccine, split virus (incl. purified surface antigen) Edwin Mohan Other [facility] Other 05-22-2021 COVID-19 Vaccine Pfi zer - Documentation Purposes Only Edwin Mohan Other [facility] Other 10-08-2020 COVID-19 Vaccine Pfi zer - Documentation Purposes Only Edwin Mohan Other [facility] Other 09-17-2020 COVID-19 Vaccine Moderna - Documentation Purposes Only Edwin Mohan Other [facility] Other 09-17-2020 COVID-19 Vaccine Pfi zer - Documentation Purposes Only Edwin Mohan Other [facility] Other 04-30-2020 influenza virus vaccine, split virus (incl. purified surface antigen) Edwin Mohan Other [facility] Other 05-18-2019 pneumococcal polysaccharide vaccine, 23 valent Edwin Mohan Other [facility] Other 05-01-2018 pneumococcal polysaccharide vaccine, 23 valent Edwin Mohan Other [facility] Other 08-02-2017 diphtheria, tetanus toxoids and acellular pertussis vaccine, unspecified formulation Edwin Mohan Other [facility] Other 06-05-2015 pneumococcal conjuga te vaccine, 13 valent Edwin Mohan Other [facility] Other 06-04-2015 pneumococcal conjuga te vaccine, 13 valent Edwin Mohan Other [facility] Other Payers Date Payer Category Payer Self-pay 2023 Private Health Insurance [id number] 2022 Medicare 2022 Private Health Insurance 1958 Medicare [id number] [id number] 1959 Private Health Insurance CLI [id number] 1946 Unknown [id number] 2.16.84 [id number] 1945 Unknown [id number] 2.16.84 [id number] 1945 Unknown [id number] 2.16.84 [id number] 1945 Unknown [id number] 2.16. [id number] 1945 Unknown [id number] 2.16. [id number] 1945 Unknown [id number] 2.16. [id number] 1945 Unknown [id number] 2.16.84 [id number] 1945 Unknown [id number] [id number] Unknown [id number] 2.16.8 [id number] Social History Date Type Detail Facility Sex Assigned At [facility] Other Start: 1945 Sex Assigned At Female F [facility] Clinical Notes 10-19-2022 to 08-09-2023 Note [...] use, the patient reduces the risk for SC, CVA, HTN, cardiac dysrhythmias and sudden cardiac [...] smoker would recommend repeat in 12 months. GRAYL Other 12-14-2023 Evaluation note* Encounter Date Diagnosis Assessment Notes Treatment Notes Treatment Clinical Notes Jul, Restrictive lung disease (ICD-10 - J98.4) [facility] Other 11-28-2023 Evaluation note* Encounter Date Diagnosis [...] Send for COVID PCR - results negative [facility] Other 10-25-2023 Evaluation note* Encounter Date Diagnosis Assessment Notes Treatment Notes Treatment Clinical Notes May, Age-related osteoporosis without current pathological fracture (ICD-10 - M81.0) [facility] Other 10-19-2023 Evaluation note* Encounter Date Diagnosis Assessment Notes Treatment Notes Treatment Clinical Notes May, Acute bilateral thoracic back pain (ICD-10 - M54.6) [facility] Other 10-18-2023 Evaluation note* Encounter Date Diagnosis [...] index [BMI] 34.0-34.9, adult (ICD-10 - Z68.34) [facility] Other 10-13-2023 Evaluation note* Encounter Date Diagnosis Assessment Notes Treatment Notes Treatment Clinical Notes May, Simple chronic bronchitis (ICD-10 - J41.0) Continue LABA/ICS Use DIMITRI as needed for cough/wheezing. Control allergies and GERD symptoms. Weight loss May, Restrictive lung disease (ICD-10 - J98.4) Weight loss important. Avoid exposure to dust, smoke and allergens. Continue treatment for DUSTIN Refer to Head [facility] Captain for evaluation and treatment May, DUSTIN (obstructive sle ep apnea) (ICD-10 - G47.33) This patient is aware of the benefits associated with DUSTIN: With continued use, the patient reduces the risk for SC, CVA, HTN, cardiac dysrhythmias and sudden cardiac [...] continue exercise to achieve/maintain a normal BMI. [facility] Other 08-31-2023 Evaluation note* Encounter Date Diagnosis Assessment Notes Treatment Notes Treatment Clinical Notes Mar, Chronic bronchitis, simple (ICD-10 - J41.0) [facility] Other 08-30-2023 Evaluation note* Encounter Date Diagnosis Assessment Notes Treatment Notes Treatment Clinical Notes Mar, Chronic bronchitis, simple (ICD-10 - J41.0) [facility] Other 08-30-2023 Evaluation note* Encounter Date Diagnosis Assessment Notes Treatment Notes Treatment Clinical Notes Mar, Chronic bronchitis, simple (ICD-10 - J41.0) Mar, DOUGLAS (dyspnea on exertion) (ICD-10 - R06.09) [facility] Other 08-28-2023 Evaluation note* Encounter Date Diagnosis Assessment Notes Treatment Notes Treatment Clinical Notes Mar, Pulmonary nodule (ICD-10 - R91.1) [facility] Other 08-22-2023 Evaluation note* Encounter Date Diagnosis Assessment Notes Treatment Notes Treatment Clinical Notes Mar, Pulmonary nodule (ICD-10 - R91.1) [facility] Other 08-22-2023 Evaluation note* Encounter Date Diagnosis [...] [BMI ] 34.0-34.9, adult (ICD-10 - Z68.34) [facility] Other 08-17-2023 Evaluation note* Encounter Date Diagnosis Assessment Notes Treatment Notes Treatment Clinical Notes Mar, Acute bilateral low back pain without sciatica (ICD-10 - M54.50) [facility] Other 08-08-2023 Evaluation note* Encounter Date Diagnosis [...] 3 mo as needed. Continue weight loss G[facility] Other 04-09-2023 Evaluation note* Encounter Date Diagnosis Assessment Notes Treatment Notes Treatment Clinical Notes Nov, Obstructive sleep apnea (adult) (pediatric) (ICD-10 - G47.33) AHI 34, CPAP14, [facility] Other 04-06-2023 Evaluation note* Encounter Date Diagnosis [...] use, the patient reduces the risk for SC, CVA, HTN, cardiac dysrhythmias and sudden cardiac [...] Diet and exercise with continued statin therapy. Nov, Chronic bronchitis, simple (ICD-10 - J41.0) Continue [...] High risk medication use (ICD-10 - Z79.899) [facility] Other 03-13-2023 Evaluation note* Encounter Date Diagnosis Assessment Notes Treatment Notes Treatment Clinical Notes Oct, Acute non-recurrent maxillary sinusitis (ICD-10 - J01.00) Instructed to use Flonase NS for congestion, Tessalon for cough, Tylenol for pain and fever. Oct, Acute cough (ICD-10 - R05.1) Head upright, push fluids and Tessalon perles [facility] Other 02-28-2023 Evaluation note* Encounter Date Diagnosis Assessment Notes Treatment Notes Treatment Clinical Notes Sep, Pure hypercholestero lemia (ICD-10 - E78.00) GRAYL Other Evaluation noteNo InformationNort Dada Other Evaluation noteNo assessment information available [facility] Work Phone: History general Narrative - Reported* Type Description Date Medical History Essential hypertension Medical History ASHD (arteriosclerotic heart dis ease) Medical History Chronic venous insufficiency Medical History Chronic bronchitis, simple Medical History High cholesterol Medical History Lumbar spondylosis Medical History Obesity (BMI 30-39.9) Medical History Obstructive sleep apnea (adult) (pediatric) [facility] Other History general Narrative - Reported* Type [...] COLONSCOPY 2018 Hospitalization History SEE SURGICAL HX G[facility] Other History general Narrative - Reported* Type [...] COLONSCOPY 2018 Hospitalization History SEE SURGICAL HX [facility] Other [facility] general Narrative - Reported* Type Description Date [...] COLONSCOPY 2018 Hospitalization History SEE SURGICAL HX [facility] Other Reason for referral (narrative)* Reason Referral for COPD an d RLD Diagnosis 1 Restrictive lung dis ease (J98.4) Diagnosis 2 Chronic bronchitis, simple (J41.0) Diagnosis 3 Pulmonary nodule (R9 1.1) Diagnosis 4 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 Obesity may contribute to respiratory complaints. Clinical Notes Labs, CT, PFT [facility] Other Reason for referral (narrative)* Reason Referral for persist ent thoracolumbar spine pain Diagnosis 1 Acute bilateral thor acic back pain (M54.6) Diagnosis 2 Lumbar spondylosis ( M47.816) Diagnosis 3 Age-related osteopor osis without current pathological fracture (M81.0) Referral Organization [facility] Referring Provider First Name Edwin Referring Provider Last Name Marques Referring Provider Specialty Internal Me dicine Referred Organization [facility] Referred Provider Freddie Cotton Referred Address [address], [place],[address] Referred Provider Specialty Pain Medicin e Referral Priority Routine General Notes Patient w/ known deg enerative arthritis of the spine w/ persistent moderate to severe thoracolumbar spine pain w/ paraspinal muscle spasms. Completed PT w/ some temporary improvement. Stretching, Tylenol and Tramadol helping w/ the pain. Refer for alternative treatment for persistent back pain. G[facility]L Other Summary Purpose Family History No Family History Records FoundNo Family History Records FoundNo Family History Records FoundNo Family History Records Found Advance Directives No Advanced Directives Records Found Advance Directive Response Recorded Date/ Time Advance Directives No April 11:03am Chief Complaint and Reason for Visit Chief Complaint J41.0 R06.09 Additional Source Comments REASON FOR VISIT (unrecogniz ed section and content) Medication QuestionCongestio n [phone] ATBwellnessNo InformationCPAP Equipment?4 month follow upBack SpasmsNo InformationXR resultsreferral for PTNo InformationNo InformationNo InformationCT resultsDifferent InhalerPFT resultstesting resultsback painMedicationNo InformationDexa [phone] cold/sore throatNo Information4 month Follow upHR-AtenololUpdate INFORMATION SOURCE (unrecogn ized section and content) DATE CREATED AUTHOR 01/01/2023 [facility] DATE CREATED AUTHOR AUTHOR'S ORGANIZ ATION 05/28/2023 [facility] DATE CREATED AUTHOR AUTHOR'S ORGANIZ ATION 08/05/2023 [facility] DATE CREATED AUTHOR AUTHOR'S ORGANIZ ATION 09/20/2023 [facility] [employer] Care Teams (unrecognized sec tion and content) Team Status: Active Member Role Status Dates Edwin Mohan DO Primary Care Provider Active Team Status: Inactive Member Role Status Dates Edwin Mohan , Primary Care Provider, Attending Pr arnoldo Active Goals (unrecognized section and content) Goals [...] BE BASED ON THE PRIMARY CLINICAL RECORDS. [facility] [employer] provides no warranty or guarantee of the accuracy or completeness of information in this document.
== END 2023-09-26 10:27 | disposition home or self-care (01) ==
LOC: RAD 10:26
PROVIDERS: PCP Internal Medicine; Visit Provider Orthopaedic Surgery
DX: M25.562 Pain in left knee (principal); M25.561 Pain in right knee; M25.462 Effusion, left knee
CPT/HCPCS: 73564

== ENCOUNTER 2023-11-11 07:23 | Outpatient (OUT) | payer MEDICARE, SELFPAY ==
--- OUTSIDE RECORDS SUMMARY | 2023-11-11 07:26 | XMS_ITS | CCD ---
Author Organization [facility] Care Team Providers Care Curbstone Setter Name Role Phone Edwin Izquiredo Unavailable MARQUES, DR PINEDA Admitting Unavailable MARQUES, DR PINEDA Attending Unavailable BALL, DR PINEDA Primary Care Unavailable BALL, DR PINEDA Consulting Unavailable MARQUES, DR PIENDA Admitting Unavailable BALL, DR PINEDA Attending Unavailable MARQUES, DR PINEDA Primary Care Unavailable MARQUES, DR PINEDA Consulting Unavailable WEST, DR BHARTI De La Rosa Consulting Unavailable MARQUES, DR PINEDA Admitting Unavailable BALL, DR PINEDA Attending Unavailable MARQUES, DR PINEDA Primary Care Unavailable Marques, DO Pineda Primary Care Provider DO Edwin Izquierdo Attending Provider Edwin Izquierdo Attending Unavailable Marques, Edwin Primary Care Unavailable Edwin Izquierdo Admitting Unavailable Ailin CHO, Raphael Luna Attending Unavailable Ailin CHO, Raphael Luna Attending Unavailable Ailin CHO, Anddaisy Luna Attending Unavailable ANGEL CAMPOS Attending Unavailable YANY MARTINEZ Attending Unavailable Allergies Allergy Classification Reported Allergen(s) Allergy Type Date of Onset Reaction(s) Facility (7 sources) Cefaclor; Translations: [Ceclor] Drug Allergy Unknown [facility] Repository (20 sources) Ciprofloxacin Drug Allergy Unknown [facility] Other (1 source) Ciprofloxacin Drug Allergy [facility] (1 source) Robafen DM Cough-Chest Congest Drug allergy (disorder) [facility] (20 sources) Ceclor *CEPHALOSPORINS* Propensity to adverse reactions Unknown [facility] Other Medications Current Medications Medication Drug Class(es) Dates Sig (Normalized) Sig (Original) [id number] 200 actuat albuterol 0.09 mg/actuat metered dose inhaler (14 sources) beta2-Adrenergic Agonist Start: 04-21-2023 take 2 [...] Aug, Active azithromycin 250 mg oral tablet (6 sources) Macrolide Antimicrobial Start: 07-19-2023 Azithromycin 250 [...] / salmeterol 0.05 mg/actuat dry powder inhaler (11 sources) Corticosteroid, beta2-Adrenergic Agonist Start: 06-03-2023 take 1 puff(s) by inhalation twice daily Wixela Inhub 250-50 MCG/ACT 1 puff Inhalation Twice a day for 30 days May, Active hydroCHLOROthiazide 25 mg oral tablet (20 sources) Thiazide Diuretic take 1 tablet by mouth once daily hydroCHLOROthiazide 25 MG TAKE 1 TABLET BY MOUTH EVERY DAY for 90 Active loratadine 10 mg oral capsule (20 sources) take 1 capsule by mouth every twenty-four hours Loratadine 10 MG 1 capsule Orally Once a day Active losartan potassium 100 mg oral tablet (20 sources) Angiotensin 2 Receptor Dwayne take 1 tablet by mouth once daily Losartan Potassium 100 MG TAKE 1 TABLET BY MOUTH EVERY DAY for 90 Active omeprazole 40 mg delayed release oral capsule (20 sources) Proton Pump Inhibitor Omeprazole 40 MG NIKIA E 1 CAPSULE BY MOUTH EVERY MORNING ON EMPTY STOMACH FOLLOWED IN 30 MINUTES BY BREAKFAST for 90 Active 24 hr oxybutynin chloride 10 mg [...] Active traMADol hydrochloride 50 mg oral tablet (20 sources) Opioid Agonist Start: 06-09-2023 take 1 tablet by mouth every six hours as needed for pain traMADol HCl 50 MG 1 tablet as needed Orally every 6 hours as needed for pain May, Active Start: 04-12-2023 take 1 tablet by [facility] twice daily as needed for pain traMADol HCl 50 MG 1 tablet as needed Orally twice daily as needed for pain Mar, Active 30 actuat umeclidinium 0.0625 mg/actuat / vilanterol 0.025 mg/actuat dry powder inhaler (15 sources) Anticholinergic, beta2-Adrenergic Agonist take 1 puff(s) [...] Coronary arteriosclerosis; 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] Chronic Diabetes [...] current use of drug therapy; Translations: [Other shelter (current) drug therapy] Episodic Other diseases of [...] of falling] Episodic Other lower respiratory disease (20 sources) Nodule of lung; Translations: [Solitary pulmonary [...] nutritional; endocrine; and metabolic disorders (20 sources) Obesity caused by energy imbalance; Translations: [...] Spondylosis; intervertebral disc disorders; other back problems (10 sources) Pain in thoracic spine; Translations: [Pain in thoracic spine] Onset: 2013 Episodic Substance-related disorders (12 sources) Tobacco dependence in remission; Translations: [Nicotine [...] 2016 Episodic Other aftercare (2 sources) Other shelter (current) drug therapy; Translations: [OTH SENIOR CARE CURRENT DRUG THERAPY] Onset: 03-29-2022 Episodic Other [...] : 1945 Gender:F Ordering : DR EDWIN IZQUIERDO D.O. Admission #: [id number] Family : Order #: [id number] CLICK HERE TO VIEW EXAM RADIOLOGY REPORT [...] Treatments None Family Cancers None LOCATION: [facility] BREAST COMPOSITION: Scattered areas fibroglandular density. FINDINGS: [...] MD on 05/26/2022 at 07:48 Normal [facility] CBC AUTO DIFFon 03-27-2022 BASO # 0.0 103/ul Normal 0.0-0.1 [facility] Comment on above: Performed By: #### C BC #### [facility] [address] [address] [address] Eduardo Segura Basophils/100 WBC (Bld) 0.3 % Normal 0.2-2.0 [facility] Comment on above: Performed By: #### C BC #### [facility] [address] [place] [address] Dr. Eduardo Segura EO # 0.3 103/ul Normal 0.0-0.7 [facility] Comment on above: Performed By: #### C BC #### [facility] [address] [place] [address] Dr. Eduardo Segura Eosinophils/100 WBC (Bld) 4.3 % Normal 0.9-7.0 [facility] Comment on above: Performed By: #### C BC #### [facility] [address] [place] [address] Dr. Eduardo Segura Erythrocyte distribution width (RBC) [Ratio] 13.7 % Normal 11.0-15.0 [facility] Comment on above: Performed By: #### C BC #### [facility] [address] [place] [address] Dr. Eduardo Segura Hematocrit (Bld) [Volume fraction] 42.6 % Normal 36.0-48.0 [facility] Comment on above: Performed By: #### C BC #### [facility] [address] [place] [address] Dr. Eduardo Segura Hemoglobin (Bld) [Mass/Vol] 14.1 g/dL Normal 12.0-16.0 [facility] Comment on above: Performed By: #### C BC #### [facility] [address] [place] [address] Dr. Eduardo Segura IG # 0.02 10e3/ul Normal 0.00-0.03 [facility] Comment on above: Performed By: #### C BC #### [facility] [address] [place] [address] Dr. Eduardo Segura IG % 0.3 % Normal 0.0-0.5 [facility] Comment on above: Performed By: #### C BC #### [facility] [address] [place] [address] Dr. Eduardo Segura LYMPH # 2.3 103/ul Normal 1.2-3.8 [facility] Comment on above: Performed By: #### C BC #### [facility] [address] [place] [address] Dr. Eduardo Segura Lymphocytes/100 WBC (Bld) 31.9 % Normal 20.5-60.0 [facility] Comment on above: Performed By: #### C BC #### [facility] [address] [place] [address] Dr. Eduardo Segura MANUAL DIFF REQ NO Normal [facility] Comment on above: Performed By: #### C BC #### [facility] [address] [place] [address] Dr. Eduardo Segura MCH (RBC) [Entitic mass] 31.1 pg Normal 26.7-34.0 [facility] Comment on above: Performed By: #### C BC #### [facility] [address] [place] [address] Dr. Eduardo Segura MCHC (RBC) [Mass/Vol] 33.1 g/dL Normal 29.9-35.2 [facility] Comment on above: Performed By: #### C BC #### [facility] [address] [place] [address] Dr. Eduardo Segura MCV (RBC) [Entitic vol] 94.0 fL Normal 81.0-99.0 [facility] Comment on above: Performed By: #### C BC #### [facility] [address] [place] [address] Dr. Eduardo Segura MONO # 0.6 103/ul Normal 0.3-0.8 [facility] Comment on above: Performed By: #### C BC #### [facility] [address] [place] [address] Dr. Eduardo Segura Monocytes/100 WBC (Bld) 7.7 % Normal 1.7-12.0 [facility] Comment on above: Performed By: #### C BC #### [facility] [address] [place] [address] Dr. Eduardo Segura NEUT # 4.0 103/ul Normal 1.4-6.5 [facility] Comment on above: Performed By: #### C BC #### [facility] [address] [place] [address] Dr. Eduardo Segura Neutrophils/100 WBC (Bld) 55.5 % Normal 43.0-75.0 [facility] Comment on above: Performed By: #### C BC #### [facility] [address] [place] [address] Dr. Eduardo Segura Platelet mean volume (Bld) [Entitic vol] 10.2 fL Normal 9.5-13.5 [facility] Comment on above: Performed By: #### C BC #### [facility] [address] [place] [address] Dr. Eduardo Segura PLT 286 103/ul Normal 150-450 [facility] Comment on above: Performed By: #### C BC #### [facility] [address] [place] [address] Dr. Eduardo Segura RBC 4.53 106/ul Normal 4.20-5.40 [facility] Comment on above: Performed By: #### C BC #### [facility] [address] [place] [address] Dr. Eduardo Segura WBC 7.2 103/ul Normal 4.0-11.0 [facility] Comment on above: Performed By: #### C BC #### [facility] [address] [place] [address] Dr. Edurado Segura GLYCOHEMOGLOBIN A1Con 2021 ADA RECOMMENDATION SEE BELOW Normal [facility] Comment on above: Result Comment: ADA RECOMMENDED LIMIT 4.0 - 6.0 ADA THERAPEUTIC TARGET < 7.0 ACTION SUGGESTED > 7.0 Performed By: #### A 1C #### [facility] [address] [place] [address] Dr. Eduardo Segura Glucose [Mass/Vol] 134 mg/dL Normal [facility] Comment on above: Performed By: #### A 1C #### [facility] [address] [place] [address] Dr. Eduardo Segura HbA1c (Bld) [Mass fraction] 6.3 % Critically high 4.5-6.2 [facility] Comment on above: Performed By: #### A 1C #### [facility] [address] [place] [address] Dr. Eduardo Segura LIPID PROFILEon 03-27-2022 CHOL-HDL RATIO NORM SEE BELOW Normal [facility] Comment on above: Result Comment: 3.3 - 4.4 LOW RISK 4.4 - 7.1 AVERAGE RISK 7.1 - 11.0 MODERATE RISK >11.0 HIGH RISK Performed By: #### B MP, LIPID, ALT #### [facility] [address] [address] [address] Eduardo Segura Cholesterol [Mass/Vol] 154 mg/dL Normal <=200 [facility] Comment on above: Performed By: #### B MP, LIPID, ALT #### [facility] [address] [address] [address] Eduardo Segura Cholesterol in HDL [Mass/Vol] 60 mg/dL Normal 40-60 [facility] Comment on above: Performed By: #### B MP, LIPID, ALT #### [facility] [address] [address] [address] Eduardo Segura Cholesterol in LDL [Mass/Vol] 75.4 mg/dL Normal [facility] Comment on above: Performed By: #### B MP, LIPID, ALT #### [facility] [address] [address] [address] Eduardo Segura Cholesterol.total/Cho lesterol in HDL [Mass ratio] 2.6 {ratio} Normal [facility] Comment on above: Performed By: #### B MP, LIPID, ALT #### [facility] [address] [address] [address] Eduardo Segura HDL NORMAL > or = 60 mg/dl - LOW CARDIOVASCULAR RISK <40 mg/dl - HIGH CARDIOVASCULAR RISK Normal [facility] Comment on above: Performed By: #### B MP, LIPID, ALT #### [facility] [address] [address] [address] Eduardo Segura LDL CALC NORMAL SEE BELOW Normal [facility] Comment on above: Result Comment: <100 mg/dl OPTIMAL 100 - 129 mg/dl NEAR OR ABOVE OPTIMAL 130 - 159 mg/dl BORDERLINE HIGH 160 - 189 mg/dl HIGH >190 mg/dl VERY HIGH Performed By: #### B MP, LIPID, ALT #### [facility] [address] [address] [address] Eduardo Segura Triglyceride [Mass/Vol] 93 mg/dL Normal <=150 [facility] Comment on above: Performed By: #### B MP, LIPID, ALT #### [facility] [address] [address] [address] Eduardo Segura VLDL CALC 18.6 mg/dL Normal [facility] Comment on above: Performed By: #### B MP, LIPID, ALT #### [facility] [address] [address] [address] Eduardo Segura PROF CHEM 8 (BAS METB)on Anion gap [Moles/Vol] 15.0 mmol/L Normal [facility] Comment on above: Performed By: #### B MP, LIPID, ALT #### [facility] [address] [address] [address] Eduardo Segura Calcium [Mass/Vol] 9.8 mg/dL Normal 8.5-10.1 [facility] Comment on above: Performed By: #### B MP, LIPID, ALT #### [facility] [address] [address] [address] Eduardo Segura Chloride [Moles/Vol] 105 mmol/L Normal 98-107 [facility] Comment on above: Performed By: #### B MP, LIPID, ALT #### [facility] [address] [address] [address] Eduardo Segura CO2 [Moles/Vol] 25.2 mmol/L Normal 21.0-32.0 [facility] Comment on above: Performed By: #### B MP, LIPID, ALT #### [facility] [address] [address] [address] Eduardo Segura Creatinine [Mass/Vol] 0.77 mg/dL Normal 0.55-1.02 [facility] Comment on above: Performed By: #### B MP, LIPID, ALT #### [facility] [address] [address] [address] Eduardo Segura EGFR-AF PARAGUAYAN >60 Normal >=60 [facility] Comment on above: Performed By: #### B MP, LIPID, ALT #### [facility] [address] [address] [address] Eduardo Segura EGFR-NON AF PARAGUAYAN >60 Normal >=60 [facility] Comment on above: Performed By: #### B MP, LIPID, ALT #### [facility] [address] [place] [address] Dr. Eduardo Segura Glucose [Mass/Vol] 142 mg/dL Critically high 74-106 [facility] Comment on above: Performed By: #### B MP, LIPID, ALT #### [facility] [address] [place] [address] Dr. Eduardo Segura Potassium [Moles/Vol] 4.2 mmol/L Normal 3.5-5.1 [facility] Comment on above: Performed By: #### B MP, LIPID, ALT #### [facility] [address] [place] [address] Dr. Eduardo Segura Sodium [Moles/Vol] 141 mmol/L Normal 136-145 [facility] Comment on above: Performed By: #### B MP, LIPID, ALT #### [facility] [address] [place] [address] Dr. Eduardo Segura Urea nitrogen [Mass/Vol] 17.0 mg/dL Normal 7.0-18.0 [facility] Comment on above: Performed By: #### B MP, LIPID, ALT #### [facility] [address] [place] [address] Dr. Eduardo Segura Urea nitrogen/Creatinine [Mass ratio] 22.1 mg/mg Normal [facility] Comment on above: Performed By: #### B MP, LIPID, ALT #### [facility] [address] [place] [address] Dr. Eduardo Segura [facility] 03-27-2022 ALT [Catalytic activity/Vol] 20 U/L Normal 14-59 [facility] Comment on above: Performed By: #### B MP, LIPID, ALT #### [facility] [address] [place] [address] Dr. Eduardo Segura Vital Signs Date Time Vital Sign Value Performing Clinician Facility 08-09-2023 15:00-0500 Body height 165.1 cm Edwin Ball Other [facility] Other 08-09-2023 15:00-0500 Body mass index (BMI) [Ratio] 32.88 kg/m2 Edwin Ball Other [facility] Other 08-09-2023 15:00-0500 Body weight 89.63 kg Edwin Ball Other [facility] Other 08-09-2023 15:00-0500 Diastolic blood pressure 94 mm[Hg] Edwin Ball Other [facility] Other 08-09-2023 15:00-0500 Respiratory rate 12 /min Edwin Ball Other [facility] Other 08-09-2023 15:00-0500 Systolic blood pressure 134 mm[Hg] Edwin Ball Other [facility] Other 06-08-2023 14:15-0400 Body height 165.1 cm Edwin Ball Other [facility] Other 06-08-2023 14:15-0400 Body mass index (BMI) [Ratio] 33.71 kg/m2 Edwin Ball Other [facility] Other 06-08-2023 14:15-0400 Body weight 91.9 kg Edwin Ball Other [facility] Other 06-08-2023 14:15-0400 Diastolic blood pressure 82 mm[Hg] Edwin Ball Other [facility] Other 06-08-2023 14:15-0400 Respiratory rate 12 /min Edwin Ball Other [facility] Other 06-08-2023 14:15-0400 Systolic blood pressure 128 mm[Hg] Edwin Ball Other [facility] Other 06-03-2023 11:30-0400 Body height 165.1 cm Edwin Ball Other [facility] Other 06-03-2023 11:30-0400 Body mass index (BMI) [Ratio] 33.71 kg/m2 Edwin Ball Other [facility] Other 06-03-2023 11:30-0400 Body weight 91.9 kg Edwin Ball Other [facility] Other 06-03-2023 11:30-0400 Diastolic blood pressure 80 mm[Hg] Edwin Ball Other [facility] Other 06-03-2023 11:30-0400 Respiratory rate 12 /min Edwin Ball Other [facility] Other 06-03-2023 11:30-0400 Systolic blood pressure 130 mm[Hg] Edwin Ball Other [facility] Other 04-12-2023 10:45-0400 Body height 165.1 cm Edwin Ball Other [facility] Other 04-12-2023 10:45-0400 Body mass index (BMI) [Ratio] 34.61 kg/m2 Edwin Ball Other [facility] Other 04-12-2023 10:45-0400 Body weight 94.35 kg Edwin Ball Other [facility] Other 04-12-2023 10:45-0400 Diastolic blood pressure 74 mm[Hg] Edwin Ball Other [facility] Other 04-12-2023 10:45-0400 Respiratory rate 20 /min Edwin Ball Other [facility] Other 04-12-2023 10:45-0400 Systolic blood pressure 116 mm[Hg] Edwin Ball Other [facility] Other 03-29-2023 10:30-0400 Body height 165.1 cm Edwin Ball Other [facility] Other 03-29-2023 10:30-0400 Body mass index (BMI) [Ratio] 34.48 kg/m2 Edwin Ball Other [facility] Other 03-29-2023 10:30-0400 Body weight 93.99 kg Edwin Ball Other [facility] Other 03-29-2023 10:30-0400 Diastolic blood pressure 70 mm[Hg] Edwin Ball Other [facility] Other 03-29-2023 10:30-0400 Respiratory rate 12 /min Edwin Ball Other [facility] Other 03-29-2023 10:30-0400 Systolic blood pressure 158 mm[Hg] Edwin Ball Other [facility] Other 11-25-2022 11:30-0400 Body height 165.1 cm Edwin Ball Other [facility] Other 11-25-2022 11:30-0400 Body mass index (BMI) [Ratio] 35.61 kg/m2 Edwin Ball Other [facility] Other 11-25-2022 11:30-0400 Body weight 97.07 kg Edwin Ball Other [facility] Other 11-25-2022 11:30-0400 Diastolic blood pressure 76 mm[Hg] Edwin Ball Other [facility] Other 11-25-2022 11:30-0400 Respiratory rate 12 /min Edwin Ball Other [facility] Other 11-25-2022 11:30-0400 Systolic blood pressure 126 mm[Hg] Edwin Ball Other [facility] Other Encounters Encounter Date Encounter Type Care Provider Facility Start: 10-14-2023 End: 10-14-2023 ambulatory Edwin Ball Other [facility] Other Start: 10-14-2023 Telephone encounter Edwin Ball [facility] Start: 09-19-2023 End: 09-19-2023 ambulatory ANGEL CAMPOS Not Available Start: 08-12-2023 End: 08-12-2023 ambulatory Edwin Ball Other [facility] Other Start: 08-12-2023 Telephone encounter Edwin Ball [facility] Start: 08-11-2023 End: 08-11-2023 ambulatory Edwin Ball Other [facility] Other Start: 08-11-2023 Telephone encounter Edwin Ball [facility] Start: 08-09-2023 End: 08-09-2023 ambulatory Edwin Ball Other [facility] Other Start: 08-09-2023 Office outpatient vi sit 25 minutes Edwin Ball [facility] Start: 08-04-2023 End: 08-04-2023 ambulatory Edwin Ball Other [facility] Other Start: 08-04-2023 Telephone encounter Edwin Ball [facility] Start: 08-02-2023 End: 08-02-2023 ambulatory YANYVALDEMAR MARTINEZ Not Available Start: 07-25-2023 End: 07-26-2023 ambulatory Raphael Parisi MD Facility:[facility] Start: 07-19-2023 End: 07-19-2023 ambulatory Edwin Izquierdo Other [facility] Other Start: 07-19-2023 Office outpatient vi sit 15 minutes Edwin Marques [facility] Start: 06-20-2023 End: 06-21-2023 ambulatory [facility] Start: 06-16-2023 End: 06-16-2023 ambulatory Edwin Izquierdo Other [facility] Other Start: 06-16-2023 Telephone encounter Edwin Izquierdo [facility] Start: 06-15-2023 End: 06-15-2023 ambulatory Edwin Izquierdo Other [facility] Other Start: 06-15-2023 Telephone encounter Edwin Izquierdo [facility] Start: 06-13-2023 End: 06-14-2023 ambulatory Raphael Parisi MD Facility:[facility] Start: 06-09-2023 End: 06-09-2023 ambulatory Edwin Izquierdo Other [facility] Other Start: 06-09-2023 Telephone encounter Edwin Izquierdo [facility] Start: 06-08-2023 End: 06-08-2023 ambulatory Edwin Ball Other [facility] Other Start: 06-08-2023 Office outpatient vi sit 15 minutes Edwin Ball [facility] Start: 06-03-2023 End: 06-03-2023 ambulatory Edwin Ball Other [facility] Other Start: 06-03-2023 Office outpatient vi sit 25 minutes Edwin Ball [facility] Start: 05-25-2023 End: 05-25-2023 ambulatory Edwin Ball Other [facility] Other Start: 05-25-2023 Telephone encounter Edwin Ball [facility] Start: 05-23-2023 End: 05-23-2023 ambulatory Edwin Ball Facility:[facility] Start: 05-23-2023 End: 05-23-2023 ambulatory DO Edwin Ball Work Phone: [facility] Work Phone: Start: 05-23-2023 End: 05-23-2023 Patient encounter procedure DO Edwin Ball Work Phone: [facility] Work Phone: Start: 04-21-2023 End: 04-21-2023 ambulatory Edwin Ball Other [facility] Other Start: 04-21-2023 Telephone encounter Edwin Ball [facility] Start: 04-20-2023 End: 04-20-2023 ambulatory Edwin Ball Other [facility] Other Start: 04-20-2023 Telephone encounter Edwin Ball [facility] Start: 04-18-2023 End: 04-18-2023 ambulatory Edwin Ball Other [facility] Other Start: 04-18-2023 Telephone encounter Edwin Ball [facility] Start: 04-12-2023 End: 04-12-2023 ambulatory Edwin Ball Other [facility] Other Start: 04-12-2023 Office outpatient vi sit 15 minutes Edwin Ball [facility] Start: 04-12-2023 Telephone encounter Edwin Ball [facility] Start: 04-07-2023 End: 04-07-2023 ambulatory Edwin Ball Other [facility] Other Start: 04-07-2023 Telephone encounter Edwin Ball [facility] Start: 03-29-2023 End: 03-29-2023 ambulatory Edwin Izquierdo Other [facility] Other Start: 03-29-2023 Office outpatient vi sit 15 minutes Edwin Izquierdo [facility] Start: 01-08-[address] EDWIN IZQUIERDO Facili ty:[facility] Start: 11-30-2022 End: 11-30-2022 ambulatory Edwin Izquierdo Other [facility] Other Start: 11-30-2022 Telephone encounter Edwin Izquierdo [facility] Start: 11-28-2022 End: 11-28-2022 ambulatory Edwin Izquierdo Other [facility] Other Start: 11-28-2022 Telephone encounter Edwin Izquierdo [facility] Start: 11-25-2022 End: 11-25-2022 ambulatory Edwin Izquierdo Other [facility] Other Start: 11-25-2022 Patient encounter procedure Edwin Izquierdo [facility] Start: 11-08-2022 End: 11-08-2022 ambulatory Edwin Izquierdo Other [facility] Other Start: 11-08-2022 Telephone encounter Edwin Izquierdo [facility] Start: 11-01-2022 End: 11-01-2022 ambulatory Edwin Izquierdo Other [facility] Other Start: 11-01-2022 Office outpatient vi sit 15 minutes Edwin Izquierdo [facility] Start: 10-19-2022 End: 10-19-2022 ambulatory Edwin Marques Other [facility] Other Start: 10-19-2022 Telephone encounter Edwin Marques [facility] Start: 07-22-2022 Adult health examination Edwin Izquierdo Other [facility] Other Start: 05-25-2022 End: 05-26-[address] EDWIN IZQUIERDO Facility:[facility] Start: 03-27-2022 End: 03-28-[address] EDWIN IZQUIERDO Facility:[facility] Procedures Date Procedure Procedure Detail Performing Clinician Start: 05-01-2018 Screening for malign ant neoplasm of colon Edwin Izquierdo Other Start: 08-01-2017 Screening for osteoporosis Edwin Izquierdo Other Depression screening Ana Izquierdo Other Screening for malign ant neoplasm of breast Edwin Izquierdo Other Screening for malign ant neoplasm of skin Edwin Izquierdo Other Immunizations Immunization Date Immunization Notes Care Provider Fa lise 07-03-2022 influenza, high dose seasonal, preservative-free Edwin Izquierdo Other [facility] Other 06-23-2022 influenza, high dose seasonal, preservative-free Edwin Izquierdo Other [facility] Other 05-18-2022 COVID-19 Pfizer (bivalent) Edwin Izquierdo Other [facility] Other 12-12-2021 COVID-19 Pfizer Edwin kurtz Other [facility] Other 12-12-2021 COVID-19 Vaccine Pfi zer - Documentation Purposes Only Edwin Izquierdo Other [facility] Other 07-21-2021 influenza virus vaccine, split virus (incl. purified surface antigen) Edwin Izquierdo Other [facility] Other 05-22-2021 COVID-19 Vaccine Pfi zer - Documentation Purposes Only Edwin Marques Other [facility] Other 10-08-2020 COVID-19 Vaccine Pfi zer - Documentation Purposes Only Edwin Izquierdo Other [facility] Other 09-17-2020 COVID-19 Vaccine Moderna - Documentation Purposes Only Edwin Izquierdo Other [facility] Other 09-17-2020 COVID-19 Vaccine Pfi zer - Documentation Purposes Only Edwin Izquierdo Other [facility] Other 04-30-2020 influenza virus vaccine, split virus (incl. purified surface antigen) Edwin Izquierdo Other [facility] Other 05-18-2019 pneumococcal polysaccharide vaccine, 23 valent Edwin Izquierdo Other [facility] Other 05-01-2018 pneumococcal polysaccharide vaccine, 23 valent Edwin Izquierdo Other [facility] Other 08-02-2017 diphtheria, tetanus toxoids and acellular pertussis vaccine, unspecified formulation Edwin Izquierdo Other [facility] Other 06-05-2015 pneumococcal conjuga te vaccine, 13 valent Edwin Izquierdo Other [facility] Other 06-04-2015 pneumococcal conjuga te vaccine, 13 valent Edwin Izquierdo Other [facility] Other Payers Date Payer Category Payer Self-pay 2023 Private Health Insurance [id number] 2022 Medicare 2022 Private Health Insurance 1958 Medicare [id number] 2.1 [id number] 1959 Private Health Insurance CLI [id number] 1945 Unknown [id number] 2.16.84 [id number] 1945 Unknown [id number] 2.16.84 [id number] 1945 Unknown [id number] 2.16.84 [id number] 1945 Unknown [id number] 2.16. [id number] 1945 Unknown [id number] 2.16. [id number] 1945 Unknown [id number] 2.16. 840.1.200429.3.579.2.196 1945 Unknown [id number] 2.16.84 0.1.258600.3.579.2.1259 1945 Unknown [id number] 2.16.840 .[id number] Unknown [id number] 2.16.8 [id number] Social History Date Type Detail Facility Sex Assigned At [facility] [employer] Other Start: 1945 Sex Assigned At Female F [facility] Clinical Notes 10-19-2022 to 10-14-2023 Note Date & Type Note Facility 10-14-2023 Evaluation note Encounter Date Diagnosis Assessment Notes Sep, Acute bilateral thoracic back pain (ICD-10 - M54.6) [facility] [employer] Other [id number] Evaluation note* Encounter Date Diagnosis Assessment Notes Treatment Notes Treatment Clinical Notes Jul, Type 2 diabetes cyrus itus with hyperglycemia, without long-term current use of [...] eye exam and Foot exam Jul, ASHD (arteriosclerot ic heart disease) (ICD-10 - [...] to monitor BP /HR Jul, Simple chronic bronc hitis (ICD-10 - J41.0) Mucolytics as needed. DIMITRI as need for cough and wheezing f/u PUlmonary Jul, DUSTIN (obstructive sle ep apnea) (ICD-10 - G47.33) This patient is aware of the benefits associated with DUSTIN: With continued use, the patient reduces the risk for OK, CVA, HTN, cardiac dysrhythmias and sudden cardiac deaths.The patient is also aware of the association between DUSTIN and morning headaches, daytime somnolence, fatigue and obesity, which also has been improved with continued use.The patient is compliant with treatment, wearing the equipment every night for greater than 4 hours.The patient is instructed to continue use of the CPAP for DUSTIN treatment. Jul, Restrictive lung dis ease (ICD-10 - J98.4) Cough and deep breathing IS 15x several times daily. Weight loss Jul, Pure hypercholestero lemia (ICD-10 - E78.00) Instructed on diet and exercise with continued statin therapy.Discussed the beneficial effects of lowering cholesterol in reducing the risk for cerebrovascular and cardiovascular disease. Jul, Gastroesophageal ref lux disease with esophagitis without hemorrhage (ICD-10 - K21.00) Avoid lying flat after eating. Avoid eating 2 hours prior to bedtime. Smaller, frequent meals may be better tolerated.Weight loss if overweight.PPI with any heartburn.Monitor for dysphagia. Jul, Chronic venous insufficiency (ICD-10 - I87.2) Avoid salt and elevate lower extremities, support stockings, inspect legs and feet daily for blisters and ulcerations. Jul, Pulmonary nodule (IC D-10 - R91.1) CT: 4mm nodule - 03/2023 4mm, in smoker would recommend repeat in 12 months. [facility] Other 12-14-2023 Evaluation note* Encounter Date Diagnosis Assessment Notes Treatment Notes Treatment Clinical Notes Jul, Restrictive lung disease (ICD-10 - J98.4) [facility] Other 11-28-2023 Evaluation note* Encounter Date Diagnosis [...] Send for COVID PCR - results negative [facility] Other 10-25-2023 Evaluation note* Encounter Date Diagnosis Assessment Notes Treatment Notes Treatment Clinical Notes May, Age-related osteoporosis without current pathological fracture (ICD-10 - M81.0) [facility] Other 10-19-2023 Evaluation note* Encounter Date Diagnosis Assessment Notes Treatment Notes Treatment Clinical Notes May, Acute bilateral thoracic back pain (ICD-10 - M54.6) [facility] Other 10-18-2023 Evaluation note* Encounter Date Diagnosis [...] index [BMI] 34.0-34.9, adult (ICD-10 - Z68.34) [facility] Other 10-13-2023 Evaluation note* Encounter Date Diagnosis Assessment Notes Treatment Notes Treatment Clinical Notes May, Simple chronic bronchitis (ICD-10 - J41.0) Continue LABA/ICS Use DIMITRI as needed for cough/wheezing. Control allergies and GERD symptoms. Weight loss May, Restrictive lung disease (ICD-10 - J98.4) Weight loss important. Avoid exposure to dust, smoke and allergens. Continue treatment for DUSTIN Refer to Advocacy Director for evaluation and treatment May, DUSTIN (obstructive sle ep apnea) (ICD-10 - G47.33) This patient is aware of the benefits associated with DUSTIN: With continued use, the patient reduces the risk for OK, CVA, HTN, cardiac dysrhythmias and sudden cardiac [...] continue exercise to achieve/maintain a normal BMI. [facility] Other 08-31-2023 Evaluation note* Encounter Date Diagnosis Assessment Notes Treatment Notes Treatment Clinical Notes Mar, Chronic bronchitis, simple (ICD-10 - J41.0) [facility] Other 08-30-2023 Evaluation note* Encounter Date Diagnosis Assessment Notes Treatment Notes Treatment Clinical Notes Mar, Chronic bronchitis, simple (ICD-10 - J41.0) [facility] Other 08-30-2023 Evaluation note* Encounter Date Diagnosis Assessment Notes Treatment Notes Treatment Clinical Notes Mar, Chronic bronchitis, simple (ICD-10 - J41.0) Mar, DOUGLAS (dyspnea on exertion) (ICD-10 - R06.09) [facility] Other 08-28-2023 Evaluation note* Encounter Date Diagnosis Assessment Notes Treatment Notes Treatment Clinical Notes Mar, Pulmonary nodule (ICD-10 - R91.1) [facility] Other 08-22-2023 Evaluation note* Encounter Date Diagnosis Assessment Notes Treatment Notes Treatment Clinical Notes Mar, Pulmonary nodule (ICD-10 - R91.1) [facility] Other 08-22-2023 Evaluation note* Encounter Date Diagnosis [...] [BMI ] 34.0-34.9, adult (ICD-10 - Z68.34) [facility] Other 08-17-2023 Evaluation note* Encounter Date Diagnosis Assessment Notes Treatment Notes Treatment Clinical Notes Mar, Acute bilateral low back pain without sciatica (ICD-10 - M54.50) [facility] Other 08-08-2023 Evaluation note* Encounter Date Diagnosis [...] 3 mo as needed. Continue weight loss [facility] Other 04-09-2023 Evaluation note* Encounter Date Diagnosis Assessment Notes Treatment Notes Treatment Clinical Notes Nov, Obstructive sleep apnea (adult) (pediatric) (ICD-10 - G47.33) AHI 34, CPAP14, [facility] Other 04-06-2023 Evaluation note* Encounter Date Diagnosis [...] use, the patient reduces the risk for OK, CVA, HTN, cardiac dysrhythmias and sudden cardiac [...] High risk medication use (ICD-10 - Z79.899) [facility] Other 03-13-2023 Evaluation note* Encounter Date Diagnosis Assessment Notes Treatment Notes Treatment Clinical Notes Oct, Acute non-recurrent maxillary sinusitis (ICD-10 - J01.00) Instructed to use Flonase NS for congestion, Tessalon for cough, Tylenol for pain and fever. Oct, Acute cough (ICD-10 - R05.1) Head upright, push fluids and Tessalon perles [facility] Other 02-28-2023 Evaluation note* Encounter Date Diagnosis Assessment Notes Treatment Notes Treatment Clinical Notes Sep, Pure hypercholestero lemia (ICD-10 - E78.00) [facility] Other Evaluation noteNo InformationNort [employer] Other Evaluation noteNo assessment information available [facility] Work Phone: [facility] general Narrative - Reported* Type Description Date Medical History Essential hypertension Medical History ASHD (arteriosclerotic heart dis ease) Medical History Chronic venous insufficiency Medical History Chronic bronchitis, simple Medical History High cholesterol Medical History Lumbar spondylosis Medical History Obesity (BMI 30-39.9) Medical History Obstructive sleep apnea (adult) (pediatric) [facility] Other History general Narrative - Reported* Type Description Date Medical History Essential hypertension Medical History ASHD (arteriosclerotic heart dis ease) Medical History Chronic venous insufficiency Medical History Chronic bronchitis, simple Medical History High cholesterol Medical History Lumbar spondylosis Medical History Obesity (BMI 30-39.9) Medical History Obstructive sleep apnea (adult) (pediatric) Surgical History ERNA /BSO 1993 Surgical History TONSILLECTOMY Surgical History D&C Surgical History LHC Surgical History CYSTOSCOPY Surgical History URETHRAL DILATION 2006 Surgical History COLONSCOPY 2018 Hospitalization History SEE SURGICAL HX [facility] Other [facility] general Narrative - Reported* Type Description Date [...] COLONSCOPY 2018 Hospitalization History SEE SURGICAL HX [facility] Other [facility] general Narrative - Reported* Type Description Date [...] COLONSCOPY 2018 Hospitalization History SEE SURGICAL HX [facility] Other Reason for referral (narrative)* Reason Referral for COPD an d RLD Diagnosis 1 Restrictive lung dis ease (J98.4) Diagnosis 2 Chronic bronchitis, simple (J41.0) Diagnosis 3 Pulmonary nodule (R9 1.1) Diagnosis 4 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 Obesity may contribute to respiratory complaints. Clinical Notes Labs, CT, PFT [facility] Other Reason for referral (narrative)* Reason Referral for persist ent thoracolumbar spine pain Diagnosis 1 Acute bilateral thor acic back pain (M54.6) Diagnosis 2 Lumbar spondylosis ( M47.816) Diagnosis 3 Age-related osteopor osis without current pathological fracture (M81.0) Referral Organization [facility] [employer] karin Referring Provider First Name Edwin Referring Provider Last Name Marques Referring Provider Specialty Internal Wa astrid Referred Organization [facility] Referred Provider Freddie Cotton Referred Address [address] [place], [place],[address] Referred Provider Specialty Pain Medicin e Referral Priority Routine General Notes Patient w/ known deg enerative arthritis of the spine w/ persistent moderate to severe thoracolumbar spine pain w/ paraspinal muscle spasms. Completed PT w/ some temporary improvement. Stretching, Tylenol and Tramadol helping w/ the pain. Refer for alternative treatment for persistent back pain. [facility] Other Summary Purpose Family History No Family History Records FoundNo Family History Records FoundNo Family History Records FoundNo Family History Records Found Advance Directives Advance Directive Response Recorded Date/ Time Advance Directives No April 11:03am Chief Complaint and Reason for Visit Chief Complaint J41.0 R06.09 Additional Source Comments REASON FOR VISIT (unrecogniz ed section and content) Medication QuestionCongestio n [phone] ATBwellnessNo InformationCPAP Equipment?4 month follow upBack SpasmsNo InformationXR resultsreferral for PTNo InformationNo InformationNo InformationCT resultsDifferent InhalerPFT resultstesting resultsback painMedicationNo InformationDexa [id number] cold/sore throatNo Information4 month Follow upHR-AtenololUpdateNo Information INFORMATION SOURCE (unrecogn ized section and content) DATE CREATED AUTHOR 01/01/2023 [facility] DATE CREATED AUTHOR AUTHOR'S ORGANIZ ATION 05/28/2023 [facility] DATE CREATED AUTHOR AUTHOR'S ORGANIZ ATION 08/05/2023 [facility] DATE CREATED AUTHOR AUTHOR'S ORGANIZ ATION 09/20/2023 [facility] EPIC Care Teams (unrecognized sec tion and content) Team Status: Active Member Role Status Dates Edwin Izquierdo DO Primary Care Provider Active Team Status: Inactive Member Role Status Dates Edwin Izquierdo DO Primary Care Provider, Attending Pr arnoldo Active [...] BE BASED ON THE PRIMARY CLINICAL RECORDS. [employer] provides no warranty or guarantee of the accuracy or completeness of information in this document.
[2023-11-11 07:46] LABS: Estimated GFR (African America >60 (>=60); Estimated GFR (Non-African Ame >60 (>=60)
--- NOTE | 2023-11-11 08:55 | CT_ITS ---
[address] [address] Patient Name: MARIA ELENA ALLEN MRN: [id number] date: 1945 Sex: F Assigned Patient Location: LAB Current Patient Location: LAB Accession/Order Number: [id number] Exam Date: 11/11/2023 08:35 Report Date: 11/11/2023 11:49 At the request of: ANTOINE IZQUIERDO Procedure: CT abdomen pelvis w con EXAMINATION: CT abdomen pelvis w con HISTORY: Diverticulitis Of Intestine K57.92 ; left lower quadrant pain COMPARISON: No relevant comparison available. TECHNIQUE: Axial, Coronal, and Sagittal images were obtained without and/or with IV contrast as indicated by examination type. Dose reduction techniques were achieved by using automated exposure control and/or adjustment of mA and/or kV according to patient size and/or use of iterative reconstruction technique. FINDINGS: LUNG BASES: Mild bronchiectasis within lung bases. Stranding within lung bases suspected to represent chronic interstitial changes. LIVER: No enlargement, atrophy, suspicious density, or significant focal lesion. BILIARY: No dilatation or calcification. PANCREAS: No lesion, fluid collection, or abnormal duct dilatation. SPLEEN: No enlargement or focal lesion. ADRENALS: No mass or enlargement. KIDNEYS: No mass, obstruction, or calcification. BOWEL/MESENTERY: Marked diverticulosis of descending and sigmoid colon mild inflammatory changes involving distal descending and proximal sigmoid colon. No bowel obstruction or appreciable mass. AORTA/VASCULAR: No aneurysm or dissection. Moderate-marked atherosclerotic disease of distal aorta. RETROPERITONEUM: No mass or adenopathy. LYMPH NODES: No adenopathy. URINARY BLADDER: No visible focal wall thickening, lesion, or calculus. PELVIC ORGANS: No visible mass. Pelvic organs appropriate for patient age. ABDOMINAL WALL: No mass or hernia. BONES: No bony lesion or fracture. OTHER: Negative. CT/CT abdomen pelvis w con IMPRESSION: 1. Mild acute diverticulitis of the distal descending and proximal sigmoid colon. Electronically authenticated by: AMEE ESTRADA Date: 11/11/2023 11:49
== END 2023-11-11 07:24 | disposition home or self-care (01) ==
LOC: LAB 07:23
PROVIDERS: PCP Internal Medicine; Visit Provider Internal Medicine
DX: K57.92 Diverticulitis of intestine, part unspecified, without perforation or abscess without bleeding (principal)
CPT/HCPCS: 36415; 74177; 82565; Q9967

== ENCOUNTER 2023-12-22 15:55 | Outpatient (OUT) | payer MEDICARE, SELFPAY ==
--- NOTE | 2023-12-22 16:06 | XR_ITS ---
[place] [id number] Patient Name: MARIA ELENA ALLEN MRN: [id number] date: 1945 Sex: F Assigned Patient Location: [facility] Current Patient Location: Accession/Order Number: [id number] Exam Date: 12/22/2023 16:15 Report Date: 12/23/2023 07:02 At the request of: PRANEETH TERRELL Procedure: XR knee JESSENIA 4V EXAMINATION: XR knee JESSENIA 4V HISTORY: pain in both knees M25.561, fall M25.562, W19.XXXA COMPARISON: No relevant comparison available. FINDINGS: RIGHT FINDINGS: BONES: No acute fracture or dislocation. Moderate to severe tricompartmental osteoarthropathy with moderate marginal osteophyte formation. Mild narrowing of medial joint space SOFT TISSUES: Negative. No visible soft tissue swelling. OTHER: Small suprapatellar joint effusion LEFT FINDINGS: BONES: No acute fracture or dislocation. Moderate to severe tricompartmental osteoarthropathy with marginal osteophyte formation. Moderate to severe narrowing of the medial joint space with some bony remodeling of the femoral condyle SOFT TISSUES: Negative. No visible soft tissue swelling. OTHER: Small suprapatellar joint effusion XR/XR knee JESSENIA 4V IMPRESSION: RIGHT CONCLUSION: Osteoarthritis with no acute abnormality LEFT CONCLUSION: Osteoarthritis with no acute abnormality Electronically authenticated by: BHARTI SCHULTE Date: 12/23/2023 07:02
== END 2023-12-22 15:56 | disposition home or self-care (01) ==
PROVIDERS: PCP Internal Medicine; Visit Provider Nurse Practitioner Family
DX: M25.561 Pain in right knee (principal); M25.562 Pain in left knee; W19.XXXA Unspecified fall, initial encounter; M17.0 Bilateral primary osteoarthritis of knee
CPT/HCPCS: 73564

== ENCOUNTER 2023-12-28 10:54 | Outpatient (OUT) | payer MEDICARE, SELFPAY ==
[2023-12-28 11:27] LABS: Basophils Percent Auto 0.2 % (0.2-2.0); Eosinophils Absolute Auto 0.4 10^3/uL (0.0-0.7); Eosinophils Percent Auto 4.9 % (0.9-7.0); Hematocrit 39.6 % (36.0-48.0); Immature Granulocytes Abs Auto 0.02 10^3/uL (0.00-0.03); Immature Granulocytes Pct Auto 0.2 % (0.0-0.5); Lymphocytes Absolute Auto 2.5 10^3/uL (1.2-3.8); Lymphocytes Percent Auto 30.1 % (20.5-60.0); Mean Corpuscular HGB Conc 32.8 g/dL (29.9-35.2); Mean Corpuscular Volume 91.5 fL (81.0-99.0); Mean Platelet Volume 9.9 fL (9.5-13.5); Monocytes Absolute Auto 0.7 10^3/uL (0.3-0.8); Monocytes Percent Auto 7.8 % (1.7-12.0); Neutrophils Absolute Auto 4.7 10^3/uL (1.4-6.5); Neutrophils Percent Auto 56.8 % (43.0-75.0); Platelet Count 310 10^3/uL (150-450); Red Blood Count 4.33 10^6/uL (4.20-5.40); Red Cell Distribution Width 14.2 % (11.0-15.0); White Blood Count 8.4 10^3/uL (4.0-11.0)
[2023-12-28 12:00] LABS: Alanine Aminotransferase 21 U/L (14-59); Albumin Globulin Ratio 0.8; Albumin Level 3.4 g/dL (3.4-5.0); Alkaline Phosphatase 94 U/L (46-116); Anion Gap 12.4; Aspartate Amino Transferase 18 U/L (15-37); BUN Creatinine Ratio 10.9; Bilirubin Total 1.1 mg/dL (0.2-1.0); Calcium 9.4 mg/dL (8.5-10.1); Carbon Dioxide 27.4 mmol/L (21.0-32.0); Chloride 104 mmol/L (98-107); Chol HDL Ratio 2.4; Cholesterol 131 mg/dL (<=200); Estimated GFR (African America >60 (>=60); Estimated GFR (Non-African Ame >60 (>=60); Globulin 4.1 g/dL; Glucose 118 mg/dL (74-106); HDL Cholesterol 55 mg/dL (40-60); LDL Cholesterol Calculated 57.8 mg/dL; Sodium 141 mmol/L (136-145); Total Protein 7.5 g/dL (6.4-8.2); Triglycerides 91 mg/dL (<=150); VLDL CHOLESTEROL 18.2 mg/dL
[2023-12-28 12:02] LABS: Potassium 2.8 mmol/L (3.5-5.1)
== END 2023-12-28 10:55 | disposition home or self-care (01) ==
LOC: LAB 10:55
PROVIDERS: PCP Internal Medicine; Visit Provider Internal Medicine
DX: E11.65 Type 2 diabetes mellitus with hyperglycemia (principal); I25.10 Atherosclerotic heart disease of native coronary artery without angina pectoris; E78.00 Pure hypercholesterolemia, unspecified; I10 Essential (primary) hypertension
CPT/HCPCS: 36415; 80053; 80061; 82043; 83036; 85025

== ENCOUNTER 2023-12-28 15:40 | Observation (INO) | payer MEDICARE, SELFPAY ==
[2023-12-28] VITALS (16 sets, daily range): BP systolic 148–167; BP diastolic 71–80; PULSE 74–96; TEMP 36.4–36.5; O2SAT 90–98; BMI 34.8; BMI 37.0
--- NOTE | 2023-12-28 15:49 | ECG_ITS ---
[facility] Test Date: 2023-12-28 Pat Name: MARIA ELENA ALLEN Department: Room: - Gender: Female General Magistrate: : 1945 Requested By: ANTOINE IZQUIERDO Order Number: [id number] Reading MD: ANTOINE IZQUIERDO Measurements Intervals [place] Rate: 82 P: 60 ND: 186 QRS: -3 QRSD: 86 T: 45 QT: 362 QTc: 401 Interpretive Statements 1100 Sinus rhythm 3114 Cannot rule out anterior myocardial infarction, age undetermined [address] depression 9150 abnormal ECG No previous ECG available for comparison Electronically Signed On 12-28-2023 23:08:53 EDT by ANTOINE IZQUIERDO
--- NOTE | 2023-12-28 16:06 | ED_ITS ---
HPI HPI - General Adult General Chief complaint: Recheck/Abnormal Lab/Rx Stated complaint: Abnormal Labs Time Seen by Provider: 12/28/23 15:47 Source: patient Mode of arrival: walk-in Limitations: no limitations History of Present Illness HPI narrative: Patient presents to ED for abnormal labs. She was seen by her family doctor recently who ordered outpatient lab studies. It came back with potassium of 2.8. They called her today and told her to come to the ER for further management. Patient states she was recently having a lot of heart palpitations which is not Necessarily abnormal for her but they seemed more frequent recently. Patient was on atenolol but that was decreased over the past couple of weeks and it was recently stopped. She denies chest pain but she does state that she can feel when her heart is racing and sometimes it makes her feel little short of breath. No lower extremity pain no recent travel. She does have some old bruising on her right ankle and left chest wall from her recent fall. She was x-rayed after that and had no traumatic abnormalities. Related Data Home Medications ?Medication ?Instructions ?Recorded ?Confirmed albuterol sulfate 90 mcg/actuation 2 puff inhalation Q4H PRN 06/14/23 07/25/23 aerosol inhaler shortness of breath or wheezing aspirin 81 mg tablet,delayed 81 mg PO DAILY 06/14/23 07/25/23 release (Adult Aspirin Regimen) atenolol 25 mg tablet 25 mg PO Q24H 06/14/23 07/25/23 atorvastatin 40 mg tablet 20 mg PO DAILY 06/14/23 07/25/23 hydrochlorothiazide 25 mg tablet 25 mg PO DAILY 06/14/23 07/25/23 loratadine 10 mg capsule 10 mg PO DAILY 06/14/23 07/25/23 losartan 100 mg tablet 100 mg PO DAILY 06/14/23 07/25/23 omeprazole 40 mg capsule,delayed 40 mg PO DAILY 06/14/23 07/25/23 release tramadol 50 mg tablet 50 mg PO Q6H PRN pain 06/14/23 07/25/23 Allergies Allergy/AdvReac Type Severity Reaction Status Date / Time cefaclor [From Ceclor] Allergy Verified 07/25/23 07:37 ciprofloxacin [From Cipro] Allergy Verified 07/25/23 07:37 Opioid HPI Opioid Management Most Recent Opioid Data: Last Pain Scale 6 07/25/23 07:39 Review of Systems ROS Status of ROS 10 or more systems reviewed and unremark able except as noted in history and below [facility] Medical History High cholesterol ?E78.00 - Pure hypercholesterolemia, unspecified (ICD-10) Acid reflux ?K21.9 - Gastro-esophageal reflux disease without esophagitis (ICD-10) Hypertension ?I10 - Essential (primary) hypertension (ICD-10) Surgical History H/O: hysterectomy ?Z90.710 - Acquired absence of both cervix and uterus (ICD-10) Exam Narrative Exam Narrative: Time Seen: [] Vital Signs: [Per nurse's notes.] General: [Alert] Skin: [Warm, dry, no rash.] Head: [Normocephalic, atraumatic.] Neck: [Supple, trachea midline.] Eye: [Pupils are equal, round and reactive to light, extraocular movements are intact, normal conjunctiva.] Ears, nose, mouth and throat: oral mucosa moist. Cardiovascular: [Regular rate and rhythm, no murmur.] Respiratory: [Lungs are clear to auscultation, respirations are non-labored, breath sounds are equal.] Chest wall: Healing bruise on the left chest wall Gastrointestinal: [Soft, nontender, non distended, normal bowel sounds.] MSK: 5 out of 5 muscle strength x 4 extremities no calf pain Lower extremity edema worse on the right which is chronic for her. Healing ecchymosis on the right ankle. Lymphatics: [No lymphadenopathy.] Psychiatric: [Cooperative, appropriate mood & affect.] Neurological: [Alert and oriented to person, place, time, and situation, no focal neurological deficit observed.] Constitutional Vital Signs, click to edit/add: Last Vital Signs Pulse 96 H 12/28/23 15:50 Resp 20 12/28/23 15:50 BP 159/80 H 12/28/23 15:50 Pulse Ox 97 12/28/23 15:50 O2 Del Method Room Air 12/28/23 15:50 Course Vital Signs Vital signs: Vital Signs Pulse Rate 96 H 12/28/23 15:50 Respiratory Rate 20 12/28/23 15:50 Blood Pressure 159/80 H 12/28/23 15:50 Pulse Oximetry 97 12/28/23 15:50 Oxygen Delivery Method Room Air 12/28/23 15:50 Pulse Rate 96 H 12/28/23 15:50 Respiratory Rate 20 12/28/23 15:50 Blood Pressure 159/80 H 12/28/23 15:50 Pulse Oximetry 97 12/28/23 15:50 Oxygen Delivery Method Room Air 12/28/23 15:50 Medical Decision Making MDM Narrative Medical decision making narrative: Patient's labs were rechecked here and show a potassium which is actually lower at 2.5. Patient was given IV and oral potassium started here in the ED. Given the fact that her potassium is 2.5 which is critically low, I think she needs to come into the hospital for replacement of her potassium. She is on hydrochlorothiazide but no other medications that should drop her potassium. I spoke to Dr. Tamayo who agrees with admission to a telemetry bed. Patient is co mfortable care plan for admit. Differential Diagnosis Differential Diagnosis: Hypokalemia, medication adverse reaction, hypomagnesemia, electrolyte abnor Medical Records Medical records reviewed: Yes I reviewed the patient's medical records Lab Data Lab results reviewed: Yes I reviewed the patient's lab results Labs: Lab Results 12/28/23 Range/Units 16:10 WBC 9.5 (4.0-11.0) 10^3/uL RBC 4.14 L (4.20-5.40) 10^6/uL Hgb 12.4 (12.0-16.0) g/dL Hct 37.4 (36.0-48.0) % MCV 90.3 (81.0-99.0) fL MCH 30.0 (26.7-34.0) pg MCHC 33.2 (29.9-35.2) g/dL RDW 14.0 (11.0-15.0) % Plt Count 301 (150-450) 10^3/uL MPV 10.2 (9.5-13.5) fL Neut % (Auto) 62.2 (43.0-75.0) % Lymph % (Auto) 27.4 (20.5-60.0) % Pitt % (Auto) 6.2 (1.7-12.0) % Eos % (Auto) 3.8 (0.9-7.0) % Baso % (Auto) 0.2 (0.2-2.0) % Neut # (Auto) 5.9 (1.4-6.5) 10^3/uL Lymph # (Auto) 2.6 (1.2-3.8) 10^3/uL Pitt # (Auto) 0.6 (0.3-0.8) 10^3/uL Eos # (Auto) 0.4 (0.0-0.7) 10^3/uL Baso # (Auto) 0.0 (0.0-0.1) 10^3/uL Abs Immat Gran (auto) 0.02 (0.00-0.03) 10^3/uL Imm/Tot Granulo (auto) 0.2 (0.0-0.5) % Sodium 140 (136-145) mmol/L Potassium 2.5 L* (3.5-5.1) mmol/L Chloride 104 (98-107) mmol/L Carbon Dioxide 26.0 (21.0-32.0) mmol/L Anion Gap 12.5 BUN 8.0 (7.0-18.0) mg/dL Creatinine 0.65 (0.55-1.02) mg/dL Est GFR ( Amer) >60 (>=60) Est GFR (Non-Af Amer) >60 (>=60) BUN/Creatinine Ratio 12.3 Glucose 156 H (74-106) mg/dL Calcium 9.3 (8.5-10.1) mg/dL Magnesium 2.1 (1.8-2.4) mg/dL Total Bilirubin 0.9 (0.2-1.0) mg/dL AST 14 L (15-37) U/L ALT 17 (14-59) U/L Alkaline Phosphatase 91 (46-116) U/L Troponin I High Sens 5.8 (4.0-51.3) pg/mL Total Protein 7.1 (6.4-8.2) g/dL Albumin 3.4 (3.4-5.0) g/dL Globulin 3.7 g/dL Albumin/Globulin Ratio 0.9 TSH 0.348 L (0.358-3.740) uIU/mL Free T4 0.94 (0.76-1.46) ng/dL ECG Data Attestation: I personally reviewed and interpreted this ECG as follows: Interpretation: EKG INTERPRETATION Time: []1602 Rate: []82 Rhythm: _ [] ST segments: _ [] T waves: _ [] Ectopy: _ [] P wave/LA interval: _ [] QRS interval: _ [] QT interval: _ [] Comparison: _ [] Comparison EKG date: [] Performed by: [self]Normal sinus rhythm no acute ST elevation or depression Discharge Plan Discharge Chief Complaint: Recheck/Abnormal Lab/Rx Clinical Impression: Hypokalemia Patient Disposition: Admitted as Observation Time of Disposition Decision: 17:09 Condition: Good Prescriptions / Home Meds: No Action omeprazole 40 mg capsule,delayed release(DR/EC) 40 mg PO DAILY hydrochlorothiazide 25 mg tablet 25 mg PO DAILY atenolol 25 mg tablet 25 mg PO Q24H aspirin [Adult Aspirin Regimen] 81 mg tablet,delayed release (DR/EC) 81 mg PO DAILY atorvastatin 40 mg tablet 20 mg PO DAILY loratadine 10 mg capsule 10 mg PO DAILY losartan 100 mg tablet 100 mg PO DAILY albuterol sulfate 90 mcg/actuation HFA aerosol inhaler 2 puff INHALATION Q4H PRN (Reason: shortness of breath or wheezing) tramadol 50 mg tablet 50 mg PO Q6H PRN (Reason: pain) Print Language: Serbian Referrals: Edwin Mohan DO [Primary Care Provider] - 1 week
[2023-12-28 16:25] LABS: Basophils Percent Auto 0.2 % (0.2-2.0); Eosinophils Absolute Auto 0.4 10^3/uL (0.0-0.7); Eosinophils Percent Auto 3.8 % (0.9-7.0); Hematocrit 37.4 % (36.0-48.0); Hemoglobin 12.4 g/dL (12.0-16.0); Immature Granulocytes Abs Auto 0.02 10^3/uL (0.00-0.03); Immature Granulocytes Pct Auto 0.2 % (0.0-0.5); Lymphocytes Absolute Auto 2.6 10^3/uL (1.2-3.8); Lymphocytes Percent Auto 27.4 % (20.5-60.0); Mean Corpuscular HGB Conc 33.2 g/dL (29.9-35.2); Mean Corpuscular Volume 90.3 fL (81.0-99.0); Mean Platelet Volume 10.2 fL (9.5-13.5); Monocytes Absolute Auto 0.6 10^3/uL (0.3-0.8); Monocytes Percent Auto 6.2 % (1.7-12.0); Neutrophils Absolute Auto 5.9 10^3/uL (1.4-6.5); Neutrophils Percent Auto 62.2 % (43.0-75.0); Platelet Count 301 10^3/uL (150-450); Red Blood Count 4.14 10^6/uL (4.20-5.40); White Blood Count 9.5 10^3/uL (4.0-11.0)
[2023-12-28 16:43] LABS: Free T4 0.94 ng/dL (0.76-1.46)
[2023-12-28 16:49] LABS: Alanine Aminotransferase 17 U/L (14-59); Albumin Globulin Ratio 0.9; Albumin Level 3.4 g/dL (3.4-5.0); Alkaline Phosphatase 91 U/L (46-116); Anion Gap 12.5; Aspartate Amino Transferase 14 U/L (15-37); BUN Creatinine Ratio 12.3; Bilirubin Total 0.9 mg/dL (0.2-1.0); Calcium 9.3 mg/dL (8.5-10.1); Chloride 104 mmol/L (98-107); Estimated GFR (African America >60 (>=60); Estimated GFR (Non-African Ame >60 (>=60); Globulin 3.7 g/dL; Glucose 156 mg/dL (74-106); Magnesium 2.1 mg/dL (1.8-2.4); Sodium 140 mmol/L (136-145); Total Protein 7.1 g/dL (6.4-8.2)
[2023-12-28 16:51] LABS: Thyroid Stimulating Hormone 0.348 uIU/mL (0.358-3.740); Troponin I High Sensitivity 5.8 pg/mL (4.0-51.3)
[2023-12-28 16:53] LABS: Potassium 2.5 mmol/L (3.5-5.1)
[2023-12-28] MEDS: POTASSIUM CHLORIDE 10 MEQ ER TABLET 40 MEQ PO ×2 (17:11→22:51)
[2023-12-28] MEDS: POTASSIUM CHLORIDE 40 MEQ in 0.9 % SODIUM CHLORIDE 250 ML 67.5 MEQ IV (17:12)
[2023-12-28 22:36] LABS: Anion Gap 13.8; BUN Creatinine Ratio 13.6; Calcium 9.4 mg/dL (8.5-10.1); Carbon Dioxide 24.5 mmol/L (21.0-32.0); Chloride 106 mmol/L (98-107); Estimated GFR (African America >60 (>=60); Estimated GFR (Non-African Ame >60 (>=60); Glucose 113 mg/dL (74-106); Potassium 3.3 mmol/L (3.5-5.1); Sodium 141 mmol/L (136-145)
[2023-12-28] MEDS: ONDANSETRON PF 4 MG/2 ML VIAL IV (22:51)
[2023-12-28] MEDS: OXYCODONE HCL 5 MG TABLET PO (22:51)
[2023-12-28] MEDS: 0.9 % SODIUM CHLORIDE 1,000 ML 30 ML IV (23:03)
[2023-12-28] MEDS: ENOXAPARIN SODIUM 40 MG/0.4 ML SYRINGE SUBQ (23:04)
[2023-12-29] VITALS (8 sets, daily range): BP systolic 115–142; BP diastolic 71–81; PULSE 63–99; TEMP 36.3–36.6; O2SAT 92–98
[2023-12-29 07:58] LABS: Adenovirus NOT DETECTED (NOT DETECTE); Bordetella parapertussis NOT DETECTED (NOT DETECTE); Coronavirus 229E NOT DETECTED (NOT DETECTE); Coronavirus HKU1 NOT DETECTED (NOT DETECTE); Coronavirus NL63 NOT DETECTED (NOT DETECTE); Coronavirus OC43 NOT DETECTED (NOT DETECTE); Human Metapneumovirus NOT DETECTED (NOT DETECTE); Human Rhinovirus/Enterovirus NOT DETECTED (NOT DETECTE); Influenza A NOT DETECTED (NOT DETECTE); Influenza B NOT DETECTED (NOT DETECTE); Mycoplasma pneumoniae NOT DETECTED (NOT DETECTE); Parainfluenza Virus 1 NOT DETECTED (NOT DETECTE); Parainfluenza Virus 2 NOT DETECTED (NOT DETECTE); Parainfluenza Virus 3 NOT DETECTED (NOT DETECTE); Parainfluenza Virus 4 NOT DETECTED (NOT DETECTE); Respiratory Syncytial Virus NOT DETECTED (NOT DETECTE); SARS-CoV-2 NOT DETECTED (NOT DETECTE)
[2023-12-29] MEDS: ATENOLOL 25 MG TABLET PO (08:29)
[2023-12-29] MEDS: CETIRIZINE HCL 10 MG TABLET PO (08:30)
[2023-12-29] MEDS: LOSARTAN POTASSIUM 50 MG TABLET 100 MG PO (08:30)
[2023-12-29] MEDS: ASPIRIN 81 MG TABLET.DR PO (08:31)
[2023-12-29] MEDS: OMEPRAZOLE 40 MG CAPSULE.DR PO (08:31)
--- NOTE | 2023-12-29 08:37 | PC.NURSE ---
Atenolol was not administered during morning med pass. Patient stated after medication was pulled and scanned she no longer takes that per Keith
[2023-12-29] MEDS: BENZONATATE 100 MG CAPSULE 200 MG PO (08:45)
--- NOTE | 2023-12-29 10:08 | P.HP_ITS ---
<Statement entered by Shaikh Sunni MD - 12/29/23 12:44> This documentation has been reviewed and approved. Patient seen and examined. Case discussed with Emergency Room physician, since staff, case management and Melba. Agree with treatment plan/clinical documentation as outlined above. Patient presented with hypokalemia noted on routine blood work that was ordered by her PCP. Patient is on hydrochlorothiazide for hypertension and was discontinued during hospital course. Her blood pressure remained stable and she did not require anything in substitution for hydrochlorothiazide patient received IV potassium and oral potassium with improvement in her potassium. Her morning potassium was 3.3. Patient is stable for discharge. She was asked to follow with PCP and have a repeat chem eight in 3-4 days. She was asked to discontinue hydrochlorothiazide and monitor evgeny blood pressure at home and bring her blood pressure log to her PCP who can then adjust her blood pressure medication based on her home blood pressure log. Patient is Medically stable for discharge and was instructed to follow-up with her PCP in 1-2 weeks HPI H&P: HPI History of Present Illness Chief complaint: Abnormal Labs Hypokalemia Narrative: 12/29/23 0940 This is a send the 8-year-old female patient with a past medical history as outlined below including HTN, hyperlipidemia, and DUSTIN; who presented to the ED on the advice of her PCP after routine outpatient labs revealed hypokalemia (2.8). The patient denies any chest pain, palpitations, weakness, dizziness, or shortness of breath beyond baseline. She does report mild fluttering in her throat that is intermittent for the last couple of months. Workup in the ED revealed persistent hypokalemia (2.8). She was treated with IV KCl and her potassium was rechecked 4 hours later and continued to drop (2.5). The patient was admitted in observation to the hospitalist service for further KCl supplementation and cardiac monitoring last night. At the time of my exam the patient is sitting up in bed having just finished her breakfast. She is awake and alert and requesting to be discharged home. She has no symptoms of her hypokalemia and it is nearly resolved this morning on AM labs. We will give 1 additional dose of KCl supplementation and plan to discharge the patient home later today. Opioid HPI Opioid Management Most Recent Opioid Data: Last Pain Scale 0 05/09/24 00:32 Last Pain Assessment 12/29/23 11:00 Last MAR Pain Assessment 12/29/23 00:32 Review of Systems ROS Status of ROS 10 or more systems reviewed and unremark able except as noted in history and below [facility] Medical History (Updated 12/29/23 @ 10:11 by Melba Carranza NP) DUSTIN (obstructive sleep apnea) ?G47.33 - Obstructive sleep apnea (adult) (pediatric) (ICD-10) Osteoarthritis of knees, bilateral ?M17.0 - Bilateral primary osteoarthritis of knee (ICD-10) Lumbago ?M54.50 - Low back pain, unspecified (ICD-10) Thoracic radiculopathy ?M54.14 - Radiculopathy, thoracic region (ICD-10) Right hip pain ?M25.551 - Pain in right hip (ICD-10) Thoracic stenosis ?M48.04 - Spinal stenosis, thoracic region (ICD-10) Effusion, left knee ?M25.462 - Effusion, left knee (ICD-10) Lumbar spondylosis ?M47.816 - Spondylosis without myelopathy or radiculopathy, lumbar region (ICD-10) High cholesterol ?E78.00 - Pure hypercholesterolemia, unspecified (ICD-10) Acid reflux ?K21.9 - Gastro-esophageal reflux disease without esophagitis (ICD-10) Hypertension ?I10 - Essential (primary) hypertension (ICD-10) Surgical History H/O: hysterectomy ?Z90.710 - Acquired absence of both cervix and uterus (ICD-10) Social History Highest level of school completed/degree received: high school graduate Do you think of yourself as: straight/heterosexual Gender Identity: female Meds Home Medications and Allergies Home Medications ?Medication ?Instructions ?Recorded ?Confirmed ?Type albuterol sulfate 90 mcg/actuation 2 puff inhalation Q4H PRN 06/14/23 12/28/23 History aerosol inhaler shortness of breath or wheezing aspirin 81 mg tablet,delayed 81 mg PO DAILY 06/14/23 12/28/23 History release (Adult Aspirin Regimen) hydrochlorothiazide 25 mg tablet 25 mg PO DAILY 06/14/23 12/28/23 History loratadine 10 mg capsule 10 mg PO DAILY PRN allergy symptoms 06/14/23 12/28/23 History losartan 100 mg tablet 100 mg PO DAILY 06/14/23 12/28/23 History omeprazole 40 mg capsule,delayed 40 mg PO DAILY 06/14/23 12/28/23 History release tramadol 50 mg tablet 50 mg PO Q6H PRN pain 06/14/23 12/28/23 History atorvastatin 20 mg tablet 20 mg PO QPM 12/28/23 12/28/23 History Allergies Allergy/AdvReac Type Severity Reaction Status Date / Time cefaclor [From Ceclor] Allergy Verified 07/25/23 07:37 ciprofloxacin [From Cipro] Allergy Verified 07/25/23 07:37 Exam Constitutional Vital Signs, click to edit/add: Last Vital Signs Temp 97.4 F L 12/29/23 08:00 Pulse 87 12/29/23 10:00 Resp 18 12/29/23 09:42 BP 131/71 12/29/23 08:30 Pulse Ox 98 12/29/23 08:00 O2 Del Method Room Air 12/29/23 08:00 O2 Flow Rate 2 12/29/23 04:10 Common normals: no apparent distress, oriented x3 and alert General appearance: cooperative Orientation/consciousness: Yes awake HENPA Common normals: normocephalic, head/scalp atraumatic and hearing grossly normal bilaterally Eye Common normals: PERRL, EOMs intact bilaterally, conjunctivae normal and no scleral icterus General eye: normal appearance of both eyes Chest Common normals: inspection of chest normal Chest: symmetrical chest wall rise Respiratory Common normals: normal respiratory effort and no use of accessory muscles Effort & inspection: able to speak in complete sentences Cardio Common normals: regular rate, regular rhythm, S1 normal heart sound, S2 normal heart sound, no murmurs and peripheral pulses 2+ throughout GI Common normals: Normal to inspection, nondistended, normoactive bowel sounds present, soft to palpation, non-tender and no hepatosplenomegaly Bladder/kidney exam: bladder normal to palpation Extremity Common normals: normal to inspection and no calf tenderness General: no clubbing, no cyanosis and no edema Neuro Common normals: CN's II-XII intact bilaterally, moves all extremities, no focal motor deficits and no sensory deficits noted Psych Common normals: mental status grossly normal Results Labs Labs: Short CBC 12/28/23 Range/Units 16:10 WBC 9.5 (4.0-11.0) 10^3/uL Hgb 12.4 (12.0-16.0) g/dL Hct 37.4 (36.0-48.0) % Plt Count 301 (150-450) 10^3/uL BMP 12/28/23 12/28/23 16:10 22:23 Sodium 140 141 Potassium 2.5 L* 3.3 L Chloride 104 106 Carbon Dioxide 26.0 24.5 BUN 8.0 8.0 Creatinine 0.65 0.59 Glucose 156 H 113 H Calcium 9.3 9.4 Liver Function 12/28/23 Range/Units 16:10 Total Bilirubin 0.9 (0.2-1.0) mg/dL AST 14 L (15-37) U/L ALT 17 (14-59) U/L Alkaline Phosphatase 91 (46-116) U/L Albumin 3.4 (3.4-5.0) g/dL Assessment and Plan Assessment and Plan (1) Hypokalemia: Assessment and Plan: Acute * Adm observation * K+2.8 on arrival in the ED, then down to 2.5 after initial KCL supplementation * KCL IV and PO supplementation - total 120 mEq including ED and admission dosing * Hold home HCTZ * BMP in AM * K+ up to 3.3 this morning * Give additional 40 mEq KCL PO now * DC home - Hold HCTZ at d/c pending follow up with PCP to discuss (2) Hypertension: Assessment and Plan: Chronic * Adequately despite holding HCTZ, but BP not quite to goal * Continue home Losartan * Hold HCTZ 2/2 hypokalemia * Defer to PCP further management (3) High cholesterol: Assessment and Plan: Chronic * Continue home statin (4) Acid reflux: Assessment and Plan: Chronic * Continue home PPI (5) DUSTIN (obstructive sleep apnea): Assessment and Plan: Chronic * Pt did not bring in her CPAP from home * O2 via NC at 2L overnight * Sat stable on RA at 98% this morning
[2023-12-29] MEDS: POTASSIUM CHLORIDE 10 MEQ ER TABLET 40 MEQ PO (10:16)
--- NOTE | 2023-12-29 12:04 | CM.NOTE ---
Rounds made with Dr. Moeller. Dr. Moeller reviews labs and plan of care. Plan for discharge later today. Vasquez Primo in agreement.
--- NOTE | 2023-12-29 12:11 | SWNOTE1 ---
BROOKE met with pt to discuss dc needs. Pt lives at home with her . She uses her rollator to get around at home. Pt has no concerns about discharge at this time. No needs. Pt did voice concerns about the nurse reviewing her med list and almost giving her a med that she was not on anymore, patient notified the nurse that she does not take it anymore. Pt also voiced the nurse said she took a medication and she did not. BROOKE asked pt how SW could asssist in situation and pt voiced she would like nurse to address the issue. BROOKE also offered for director of med/surge to come in, but pt felt she should address nurse. Medicare Outpatient Observation Notice reviewed and discussed with patient. Pt. verbalized understanding and signed the form. Original given to patient and copy placed in patient?s chart. BROOKE spoke with pt's nurse and she voiced she will go back in and speak with pt.
== END 2023-12-29 11:45 | disposition home or self-care (01) ==
LOC: ER 17:09 → MS 18:32
PROVIDERS: Nurse Practitioner; Admitting Provider Internal Medicine; Emergency Provider Emergency Medicine; PCP Internal Medicine; Visit Provider Internal Medicine
DX: E87.6 Hypokalemia (principal); E11.65 Type 2 diabetes mellitus with hyperglycemia; I25.10 Atherosclerotic heart disease of native coronary artery without angina pectoris; E78.00 Pure hypercholesterolemia, unspecified; I10 Essential (primary) hypertension; G47.33 Obstructive sleep apnea (adult) (pediatric); M17.0 Bilateral primary osteoarthritis of knee; M47.816 Spondylosis without myelopathy or radiculopathy, lumbar region; K21.9 Gastro-esophageal reflux disease without esophagitis; M54.14 Radiculopathy, thoracic region; M48.04 Spinal stenosis, thoracic region; Z90.710 Acquired absence of both cervix and uterus; Z20.822 Contact with and (suspected) exposure to COVID-19; Z79.899 Other long term (current) drug therapy; Z79.82 Long term (current) use of aspirin
CPT/HCPCS: 0202U; 36415; 80048; 80053; 80061; 82043; 83735; 84439; 84443; 84484; 85025; 93005; 94761; 96365; 96366; 96372; 96375; 99285; G0378; J3480

== ENCOUNTER 2024-01-02 10:40 | Outpatient (OUT) | payer MEDICARE, SELFPAY ==
--- OUTSIDE RECORDS SUMMARY | 2024-01-02 11:03 | XMS_ITS | CCD ---
Author Organization [facility] Care Team Providers Care Pricing Analyst Name Role Phone Edwin Izquierdo Unavailable MARQUES, DR PINEDA Admitting Unavailable MARQUES, DR PINEDA Attending Unavailable BALL, DR PINEDA Primary Care Unavailable BALL, DR PINEDA Consulting Unavailable MARQUES, DR PINEDA Admitting Unavailable BALL, DR PINEDA Attending Unavailable MARQUES, DR PINEDA Primary Care Unavailable MARQUES, DR PINEDA Consulting Unavailable WEST, DR BHARTI De La Rosa Consulting Unavailable MARQUES, DR PINEDA Admitting Unavailable BALL, DR PINEDA Attending Unavailable MARQUES, DR PINEDA Primary Care Unavailable Marques, DO Pineda Primary Care Provider [phone] DO Edwin Izquierdo Attending Provider Edwin Izquierdo [...] Cefaclor; Translations: [Ceclor] Drug Allergy Unknown [facility] Repository (20 sources) Ciprofloxacin Drug Allergy Unknown [facility] Other (1 source) Ciprofloxacin Drug Allergy [facility] (1 source) Robafen DM Cough-Chest Congest Drug allergy (disorder) [facility] (20 sources) Ceclor *CEPHALOSPORINS* Propensity to adverse reactions Unknown [facility] Other Medications Current Medications Medication Drug Class(es) Dates Sig (Normalized) Sig (Original) [id number] 200 actuat albuterol 0.09 mg/actuat metered dose [...] Active Start: 04-12-2023 take [address] 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 Admission #: [id number] Family : Order #: [id number] CLICK HERE TO VIEW EXAM RADIOLOGY REPORT [...] Treatments None Family Cancers None LOCATION: [facility] BREAST COMPOSITION: Scattered areas fibroglandular [...] MD on 05/26/2022 at 07:48 Normal [facility] CBC AUTO DIFFon 03-27-2022 BASO # 0.0 103/ul Normal 0.0-0.1 [facility] Comment on above: Performed By: #### C BC #### [facility] [address] [address] [address] Eduardo Segura Basophils/100 WBC (Bld) 0.3 % Normal 0.2-2.0 [facility] Comment on above: Performed By: #### C BC #### [facility] [address] [place] [address] Dr. Eduardo Segura EO # 0.3 103/ul Normal 0.0-0.7 [facility] Comment on above: Performed By: #### C BC #### [facility] [address] [place] [address] Dr. Eduardo Segura Eosinophils/100 WBC (Bld) 4.3 % Normal 0.9-7.0 [facility] Comment on above: Performed By: #### C BC #### [facility] [address] [place] [address] Dr. Eduardo Segura Erythrocyte distribution width (RBC) [Ratio] 13.7 % Normal 11.0-15.0 [facility] Comment on above: Performed By: #### C BC #### [facility] [address] [place] [address] Dr. Eduardo Segura Hematocrit (Bld) [Volume fraction] 42.6 % Normal 36.0-48.0 [facility] Comment on above: Performed By: #### C BC #### [facility] [address] [place] [address] Dr. Eduardo Segura Hemoglobin (Bld) [Mass/Vol] 14.1 g/dL Normal 12.0-16.0 [facility] Comment on above: Performed By: #### C BC #### [facility] [address] [place] [address] Dr. Eduardo Segura IG # 0.02 10e3/ul Normal 0.00-0.03 [facility] Comment on above: Performed By: #### C BC #### [facility] [address] [place] [address] Dr. Eduardo Segura IG % 0.3 % Normal 0.0-0.5 [facility] Comment on above: Performed By: #### C BC #### [facility] [address] [place] [address] Dr. Eduardo Segura LYMPH # 2.3 103/ul Normal 1.2-3.8 [facility] Comment on above: Performed By: #### C BC #### [facility] [address] [place] [address] Dr. Eduardo Segura Lymphocytes/100 WBC (Bld) 31.9 % Normal 20.5-60.0 [facility] Comment on above: Performed By: #### C BC #### [facility] [address] [place] [address] Dr. Eduardo Segura MANUAL DIFF REQ NO Normal [facility] Comment on above: Performed By: #### C BC #### [facility] [address] [place] [address] Dr. Eduardo Segura MCH (RBC) [Entitic mass] 31.1 pg Normal 26.7-34.0 [facility] Comment on above: Performed By: #### C BC #### [facility] [address] [place] [address] Dr. Eduardo Segura MCHC (RBC) [Mass/Vol] 33.1 g/dL Normal 29.9-35.2 [facility] Comment on above: Performed By: #### C BC #### [facility] [address] [place] [address] Dr. Eduardo Segura MCV (RBC) [Entitic vol] 94.0 fL Normal 81.0-99.0 [facility] Comment on above: Performed By: #### C BC #### [facility] [address] [place] [address] Dr. Eduardo Segura MONO # 0.6 103/ul Normal 0.3-0.8 [facility] Comment on above: Performed By: #### C BC #### [facility] [address] [place] [address] Dr. Eduardo Segura Monocytes/100 WBC (Bld) 7.7 % Normal 1.7-12.0 [facility] Comment on above: Performed By: #### C BC #### [facility] [address] [place] [address] Dr. Eduardo Segura NEUT # 4.0 103/ul Normal 1.4-6.5 [facility] Comment on above: Performed By: #### C BC #### [facility] [address] [place] [address] Dr. Eduardo Segura Neutrophils/100 WBC (Bld) 55.5 % Normal 43.0-75.0 [facility] Comment on above: Performed By: #### C BC #### [facility] [address] [place] [address] Dr. Eduardo Segura Platelet mean volume (Bld) [Entitic vol] 10.2 fL Normal 9.5-13.5 [facility] Comment on above: Performed By: #### C BC #### [facility] [address] [place] [address] Dr. Eduardo Segura PLT 286 103/ul Normal 150-450 [facility] Comment on above: Performed By: #### C BC #### [facility] [address] [place] [address] Dr. Eduardo Segura RBC 4.53 106/ul Normal 4.20-5.40 [facility] Comment on above: Performed By: #### C BC #### [facility] [address] [place] [address] Dr. Eduardo Segura WBC 7.2 103/ul Normal 4.0-11.0 [facility] Comment on above: Performed By: #### C BC #### [facility] [address] [place] [address] Dr. Eduardo Segura GLYCOHEMOGLOBIN A1Con 2021 ADA RECOMMENDATION SEE BELOW Normal [facility] Comment on above: Result Comment: ADA RECOMMENDED LIMIT 4.0 - 6.0 ADA THERAPEUTIC TARGET < 7.0 ACTION SUGGESTED > 7.0 Performed By: #### A 1C #### [facility] [address] [place] [address] Dr. Eduardo Segura Glucose [Mass/Vol] 134 mg/dL Normal [facility] Comment on above: Performed By: #### A 1C #### [facility] [address] [place] [address] Dr. Eduardo Segura HbA1c (Bld) [Mass fraction] 6.3 % Critically high 4.5-6.2 [facility] Comment on above: Performed By: #### A 1C #### [facility] [address] [place] [address] Dr. Eduardo Segura LIPID PROFILEon 03-27-2022 CHOL-HDL RATIO NORM SEE BELOW Normal [facility] Comment on above: Result Comment: 3.3 - 4.4 LOW RISK 4.4 - 7.1 AVERAGE RISK 7.1 - 11.0 MODERATE RISK >11.0 HIGH RISK Performed By: #### B MP, LIPID, ALT #### [facility] [address] [address] [address] Eduardo Segura Cholesterol [Mass/Vol] 154 mg/dL Normal <=200 [facility] Comment on above: Performed By: #### B MP, LIPID, ALT #### [facility] [address] [address] [address] Eduardo Segura Cholesterol in HDL [Mass/Vol] 60 mg/dL Normal 40-60 [facility] Comment on above: Performed By: #### B MP, LIPID, ALT #### [facility] [address] [address] [address] Eduardo Segura Cholesterol in LDL [Mass/Vol] 75.4 mg/dL Normal [facility] Comment on above: Performed By: #### B MP, LIPID, ALT #### [facility] [address] [address] [address] Eduardo Segura Cholesterol.total/Cho lesterol in HDL [Mass ratio] 2.6 {ratio} Normal [facility] Comment on above: Performed By: #### B MP, LIPID, ALT #### [facility] [address] [address] [address] Eduardo Segura HDL NORMAL > or = 60 mg/dl - LOW CARDIOVASCULAR RISK <40 mg/dl - HIGH CARDIOVASCULAR RISK Normal [facility] Comment on above: Performed By: #### B MP, LIPID, ALT #### [facility] [address] [address] [address] Eduardo Segura LDL CALC NORMAL SEE BELOW Normal [facility] Comment on above: Result Comment: <100 mg/dl OPTIMAL 100 - 129 mg/dl NEAR OR ABOVE OPTIMAL 130 - 159 mg/dl BORDERLINE HIGH 160 - 189 mg/dl HIGH >190 mg/dl VERY HIGH Performed By: #### B MP, LIPID, ALT #### [facility] [address] [address] [address] Eduardo Segura Triglyceride [Mass/Vol] 93 mg/dL Normal <=150 [facility] Comment on above: Performed By: #### B MP, LIPID, ALT #### [facility] [address] [address] [address] Eduardo Segura VLDL CALC 18.6 mg/dL Normal [facility] Comment on above: Performed By: #### B MP, LIPID, ALT #### [facility] [address] [address] [address] Eduardo Segura PROF CHEM 8 (BAS METB)on Anion gap [Moles/Vol] 15.0 mmol/L Normal [facility] Comment on above: Performed By: #### B MP, LIPID, ALT #### [facility] [address] [address] [address] Eduardo Segura Calcium [Mass/Vol] 9.8 mg/dL Normal 8.5-10.1 [facility] Comment on above: Performed By: #### B MP, LIPID, ALT #### [facility] [address] [address] [address] Eduardo Segura Chloride [Moles/Vol] 105 mmol/L Normal 98-107 [facility] Comment on above: Performed By: #### B MP, LIPID, ALT #### [facility] [address] [address] [address] Eduardo Segura CO2 [Moles/Vol] 25.2 mmol/L Normal 21.0-32.0 [facility] Comment on above: Performed By: #### B MP, LIPID, ALT #### [facility] [address] [address] [address] Eduardo Segura Creatinine [Mass/Vol] 0.77 mg/dL Normal 0.55-1.02 [facility] Comment on above: Performed By: #### B MP, LIPID, ALT #### [facility] [address] [address] [address] Eduardo Segura EGFR-AF ANGOLAN >60 Normal >=60 [facility] Comment on above: Performed By: #### B MP, LIPID, ALT #### [facility] [address] [address] [address] Eduardo Segura EGFR-NON AF ANGOLAN >60 Normal >=60 [facility] Comment on above: Performed By: #### B MP, LIPID, ALT #### [facility] [address] [place] [address] Dr. Eduardo Segura Glucose [Mass/Vol] 142 mg/dL Critically high 74-106 [facility] Comment on above: Performed By: #### B MP, LIPID, ALT #### [facility] [address] [place] [address] Dr. Eduardo Segura Potassium [Moles/Vol] 4.2 mmol/L Normal 3.5-5.1 [facility] Comment on above: Performed By: #### B MP, LIPID, ALT #### [facility] [address] [place] [address] Dr. Eduardo Segura Sodium [Moles/Vol] 141 mmol/L Normal 136-145 [facility] Comment on above: Performed By: #### B MP, LIPID, ALT #### [facility] [address] [place] [address] Dr. Eduardo Segura Urea nitrogen [Mass/Vol] 17.0 mg/dL Normal 7.0-18.0 [facility] Comment on above: Performed By: #### B MP, LIPID, ALT #### [facility] [address] [place] [address] Dr. Eduardo Segura Urea nitrogen/Creatinine [Mass ratio] 22.1 mg/mg Normal [facility] Comment on above: Performed By: #### B MP, LIPID, ALT #### [facility] [address] [place] [address] Dr. Eduardo Segura [facility] 03-27-2022 ALT [Catalytic activity/Vol] 20 U/L Normal 14-59 [facility] Comment on above: Performed By: #### B MP, LIPID, ALT #### [facility] [address] [place] [address] Dr. Eduardo Segura Vital Signs Date Time Vital Sign Value Performing Clinician Facility 08-09-2023 15:00-0500 Body height 165.1 cm Edwin Ball Other [facility] Other 08-09-2023 15:00-0500 Body mass index (BMI) [Ratio] 32.88 kg/m2 Edwin Ball Other [facility] Other 08-09-2023 15:00-0500 Body weight 89.63 kg Edwin Ball Other [facility] Other 08-09-2023 15:00-0500 Diastolic blood pressure 94 mm[Hg] Edwin Ball Other [facility] Other 08-09-2023 15:00-0500 Respiratory rate 12 /min Edwin Ball Other [facility] Other 08-09-2023 15:00-0500 Systolic blood pressure 134 mm[Hg] Edwin Ball Other [facility] Other 06-08-2023 14:15-0400 Body height 165.1 cm Edwin Ball Other [facility] Other 06-08-2023 14:15-0400 Body mass index (BMI) [Ratio] 33.71 kg/m2 Edwin Ball Other [facility] Other 06-08-2023 14:15-0400 Body weight 91.9 kg Edwin Ball Other [facility] Other 06-08-2023 14:15-0400 Diastolic blood pressure 82 mm[Hg] Edwin Ball Other [facility] Other 06-08-2023 14:15-0400 Respiratory rate 12 /min Edwin Ball Other [facility] Other 06-08-2023 14:15-0400 Systolic blood pressure 128 mm[Hg] Edwin Ball Other [facility] Other 06-03-2023 11:30-0400 Body height 165.1 cm Edwin Ball Other [facility] Other 06-03-2023 11:30-0400 Body mass index (BMI) [Ratio] 33.71 kg/m2 Edwin Ball Other [facility] Other 06-03-2023 11:30-0400 Body weight 91.9 kg Edwin Ball Other [facility] Other 06-03-2023 11:30-0400 Diastolic blood pressure 80 mm[Hg] Edwin Ball Other [facility] Other 06-03-2023 11:30-0400 Respiratory rate 12 /min Edwin Ball Other [facility] Other 06-03-2023 11:30-0400 Systolic blood pressure 130 mm[Hg] Edwin Ball Other [facility] Other 04-12-2023 10:45-0400 Body height 165.1 cm Edwin Ball Other [facility] Other 04-12-2023 10:45-0400 Body mass index (BMI) [Ratio] 34.61 kg/m2 Edwin Ball Other [facility] Other 04-12-2023 10:45-0400 Body weight 94.35 kg Edwin Ball Other [facility] Other 04-12-2023 10:45-0400 Diastolic blood pressure 74 mm[Hg] Edwin Ball Other [facility] Other 04-12-2023 10:45-0400 Respiratory rate 20 /min Edwin Ball Other [facility] Other 04-12-2023 10:45-0400 Systolic blood pressure 116 mm[Hg] Edwin Ball Other [facility] Other 03-29-2023 10:30-0400 Body height 165.1 cm Edwin Ball Other [facility] Other 03-29-2023 10:30-0400 Body mass index (BMI) [Ratio] 34.48 kg/m2 Edwin Ball Other [facility] Other 03-29-2023 10:30-0400 Body weight 93.99 kg Edwin Ball Other [facility] Other 03-29-2023 10:30-0400 Diastolic blood pressure 70 mm[Hg] Edwin Ball Other [facility] Other 03-29-2023 10:30-0400 Respiratory rate 12 /min Ewdin Ball Other [facility] Other 03-29-2023 10:30-0400 Systolic blood pressure 158 mm[Hg] Edwin Ball Other [facility] Other 11-25-2022 11:30-0400 Body height 165.1 cm Edwin Ball Other [facility] Other 11-25-2022 11:30-0400 Body mass index (BMI) [Ratio] 35.61 kg/m2 Edwin Ball Other [facility] Other 11-25-2022 11:30-0400 Body weight 97.07 kg Edwin Ball Other [facility] Other 11-25-2022 11:30-0400 Diastolic blood pressure 76 mm[Hg] Edwin Ball Other [facility] Other 11-25-2022 11:30-0400 Respiratory rate 12 /min Edwin Ball Other [facility] Other 11-25-2022 11:30-0400 Systolic blood pressure 126 mm[Hg] Edwin Ball Other [facility] Other Encounters Encounter Date Encounter Type Care Provider Facility Start: 10-14-2023 End: 10-14-2023 ambulatory Edwin Ball Other [facility] Other Start: 10-14-2023 Telephone encounter Edwin Ball [facility] Start: 09-19-2023 End: 09-19-2023 ambulatory ANGEL CAMPOS Not Available Start: 08-12-2023 End: 08-12-2023 ambulatory Edwin Ball Other [facility] Other Start: 08-12-2023 Telephone encounter Edwin Ball [facility] Start: 08-11-2023 End: 08-11-2023 ambulatory Edwin Ball Other [facility] Other Start: 08-11-2023 Telephone encounter Edwin Ball [facility] Start: 08-09-2023 End: 08-09-2023 ambulatory Edwin Ball Other [facility] Other Start: 08-09-2023 Office outpatient vi sit 25 minutes Edwin Ball [facility] Start: 08-04-2023 End: 08-04-2023 ambulatory Edwin Ball Other [facility] Other Start: 08-04-2023 Telephone encounter Edwin Ball [facility] Start: 08-02-2023 End: 08-02-2023 ambulatory YANYVALDEMAR MARTINEZ Not Available Start: 07-25-2023 End: 07-26-2023 ambulatory Raphael Parisi MD Facility:[facility] Start: 07-19-2023 End: 07-19-2023 ambulatory Edwin Izquierdo Other [facility] Other Start: 07-19-2023 Office outpatient vi sit 15 minutes Edwin Marques [facility] Start: 06-20-2023 End: 06-21-2023 [facility]ulatory [facility] Start: 06-16-2023 End: 06-16-2023 ambulatory Edwin Izquierdo Other [facility] Other Start: 06-16-2023 Telephone encounter Edwin Izquierdo [facility] Start: 06-15-2023 End: 06-15-2023 ambulatory Edwin Izquierdo Other [facility] Other Start: 06-15-2023 Telephone encounter Edwin Izquierdo [facility] Start: 06-13-2023 End: 06-14-2023 ambulatory Raphael Parisi MD Facility:[facility] Start: 06-09-2023 End: 06-09-2023 ambulatory Edwin Izquierdo Other [facility] Other Start: 06-09-2023 Telephone encounter Edwin Izquierdo [facility] Start: 06-08-2023 End: 06-08-2023 ambulatory Edwin Ball Other [facility] Other Start: 06-08-2023 Office outpatient vi sit 15 minutes Edwin Ball [facility] Start: 06-03-2023 End: 06-03-2023 ambulatory Edwin Ball Other [facility] Other Start: 06-03-2023 Office outpatient vi sit 25 minutes Edwin Ball [facility] Start: 05-25-2023 End: 05-25-2023 ambulatory Edwin Ball Other [facility] Other Start: 05-25-2023 Telephone encounter Edwin Ball [facility] Start: 05-23-2023 End: 05-23-2023 ambulatory Edwin Ball Facility:[facility] Start: 05-23-2023 End: 05-23-2023 ambulatory DO Edwin Ball Work Phone: [facility] Work Phone: Start: 05-23-2023 End: 05-23-2023 Patient encounter procedure DO Edwin Ball Work Phone: [facility] Work Phone: Start: 04-21-2023 End: 04-21-2023 ambulatory Edwin Ball Other [facility] Other Start: 04-21-2023 Telephone encounter Edwin Ball [facility] Start: 04-20-2023 End: 04-20-2023 ambulatory Edwin Ball Other [facility] Other Start: 04-20-2023 Telephone encounter Edwin Ball [facility] Start: 04-18-2023 End: 04-18-2023 ambulatory Edwin Ball Other [facility] Other Start: 04-18-2023 Telephone encounter Edwin Ball [facility] Start: 04-12-2023 End: 04-12-2023 ambulatory Edwin Ball Other [facility] Other Start: 04-12-2023 Office outpatient vi sit 15 minutes Edwin Ball [facility] Start: 04-12-2023 Telephone encounter Edwin Ball [facility] Start: 04-07-2023 End: 04-07-2023 ambulatory Edwin Ball Other [facility] Other Start: 04-07-2023 Telephone encounter Edwin Ball [facility] Start: 03-29-2023 End: 03-29-2023 ambulatory Edwin Izquierdo Other [facility] Other Start: 03-29-2023 Office outpatient vi sit 15 minutes Edwin Izquierdo [facility] Start: 01-08-[address] EDWIN IZQUIERDO Facili ty:[facility] Start: 11-30-2022 End: 11-30-2022 ambulatory Edwin Izquierdo Other [facility] Other Start: 11-30-2022 Telephone encounter Edwin Izquierdo [facility] Start: 11-28-2022 End: 11-28-2022 ambulatory Edwin Izquierdo Other [facility] Other Start: 11-28-2022 Telephone encounter Edwin Izquierdo [facility] Start: 11-25-2022 End: 11-25-2022 ambulatory Edwin Izquierdo Other [facility] Other Start: 11-25-2022 Patient encounter procedure Edwin Izquierdo [facility] Start: 11-08-2022 End: 11-08-2022 ambulatory Edwin Izquierdo Other [facility] Other Start: 11-08-2022 Telephone encounter Edwin Izquierdo [facility] Start: 11-01-2022 End: 11-01-2022 ambulatory Edwin Izquierdo Other [facility] Other Start: 11-01-2022 Office outpatient vi sit 15 minutes Edwin Izquierdo [facility] Start: 10-19-2022 End: 10-19-2022 ambulatory Edwin Marques Other [facility] Other Start: 10-19-2022 Telephone encounter Edwin Marques [facility] Start: 07-22-2022 Adult health examination Edwin Izquierdo Other [facility] Other Start: 05-25-2022 End: 05-26-[address] [...] high dose seasonal, preservative-free Edwin Izquierdo Other [facility] Other 06-23-2022 influenza, high dose seasonal, preservative-free Edwin Izquierdo Other [facility] Other 05-18-2022 COVID-19 Pfizer (bivalent) Edwin Izquierdo Other [facility] Other 12-12-2021 COVID-19 Pfizer Edwin kurtz Other [facility] Other 12-12-2021 COVID-19 Vaccine Pfi zer - Documentation Purposes Only Edwin Izquierdo Other [facility] Other 07-21-2021 influenza virus vaccine, split virus (incl. purified surface antigen) Edwin Izquierdo Other [facility] Other 05-22-2021 COVID-19 Vaccine Pfi zer - Documentation Purposes Only Edwin Marques Other [facility] Other 10-08-2020 COVID-19 Vaccine Pfi zer - Documentation Purposes Only Edwin Izquierdo Other [facility] Other 09-17-2020 COVID-19 Vaccine Moderna - Documentation Purposes Only Edwin Izquierdo Other [facility] Other 09-17-2020 COVID-19 Vaccine Pfi zer - Documentation Purposes Only Edwin Izquierdo Other [facility] Other 04-30-2020 influenza virus vaccine, split virus (incl. purified surface antigen) Edwin Izquierdo Other [facility] Other 05-18-2019 pneumococcal polysaccharide vaccine, 23 valent Edwin Izquierdo Other [facility] Other 05-01-2018 pneumococcal polysaccharide vaccine, 23 valent Edwin Izquierdo Other [facility] Other 08-02-2017 diphtheria, tetanus toxoids and acellular pertussis vaccine, unspecified formulation Edwin Izquierdo Other [facility] Other 06-05-2015 pneumococcal conjuga te vaccine, 13 valent Edwin Izquierdo Other [facility] Other 06-04-2015 pneumococcal conjuga te vaccine, 13 valent Edwin Izquierdo Other [facility] Other Payers Date Payer Category Payer Self-pay 2023 Private Health Insurance [id number] 2022 Medicare 2022 Private Health Insurance 1958 Medicare [id number] 2.1 [id number] 1959 Private Health Insurance CLI [id number] 1945 Unknown [id number] 2.16.84 [id number] 1945 Unknown [id number] 2.16.84 [id number] 1945 Unknown [id number] 2.16.84 [id number] 1945 Unknown [id number] 2.16. [id number] 1945 Unknown [id number] 2.16. [id number] 1945 Unknown [id number] 2.16. [id number] 1945 Unknown [id number] 2.16.84 [id number] 1945 Unknown [id number] [id number] .[id number] Unknown [id number] 2.16.8 [id number] Social History Date Type Detail Facility Sex Assigned At [facility] Other Start: 1945 Sex Assigned At Female F [facility] Clinical Notes 10-19-2022 to 10-14-2023 Note Date & Type Note Facility 10-14-2023 Evaluation note Encounter Date Diagnosis Assessment Notes Sep, Acute bilateral thoracic back pain (ICD-10 - M54.6) [facility] Other [id number] Evaluation note* Encounter Date Diagnosis Assessment Notes [...] use, the patient reduces the risk for WA, CVA, HTN, cardiac dysrhythmias and sudden cardiac [...] smoker would recommend repeat in 12 months. [facility] Other 12-14-2023 Evaluation note* Encounter Date Diagnosis Assessment Notes Treatment Notes Treatment Clinical Notes Jul, Restrictive lung disease (ICD-10 - J98.4) [facility] Other 11-28-2023 Evaluation note* Encounter Date Diagnosis [...] Send for COVID PCR - results negative [facility] Other 10-25-2023 Evaluation note* Encounter Date Diagnosis Assessment Notes Treatment Notes Treatment Clinical Notes May, Age-related osteoporosis without current pathological fracture (ICD-10 - M81.0) [facility] Other 10-19-2023 Evaluation note* Encounter Date Diagnosis Assessment Notes Treatment Notes Treatment Clinical Notes May, Acute bilateral thoracic back pain (ICD-10 - M54.6) [facility] Other 10-18-2023 Evaluation note* Encounter Date Diagnosis [...] index [BMI] 34.0-34.9, adult (ICD-10 - Z68.34) [facility] Other 10-13-2023 Evaluation note* Encounter Date Diagnosis Assessment Notes Treatment Notes Treatment Clinical Notes May, Simple chronic bronchitis (ICD-10 - J41.0) Continue LABA/ICS Use DIMITRI as needed for cough/wheezing. Control allergies and GERD symptoms. Weight loss May, Restrictive lung disease (ICD-10 - J98.4) Weight loss important. Avoid exposure to dust, smoke and allergens. Continue treatment for DUSTIN Refer to [employer] for evaluation and treatment May, UDSTIN (obstructive sle ep apnea) (ICD-10 - G47.33) This patient is aware of the benefits associated with DUSTIN: With continued use, the patient reduces the risk for WA, CVA, HTN, cardiac dysrhythmias and sudden cardiac [...] continue exercise to achieve/maintain a normal BMI. [facility] Other 08-31-2023 Evaluation note* Encounter Date Diagnosis Assessment Notes Treatment Notes Treatment Clinical Notes Mar, Chronic bronchitis, simple (ICD-10 - J41.0) [facility] Other 08-30-2023 Evaluation note* Encounter Date Diagnosis Assessment Notes Treatment Notes Treatment Clinical Notes Mar, Chronic bronchitis, simple (ICD-10 - J41.0) [facility] Other 08-30-2023 Evaluation note* Encounter Date Diagnosis Assessment Notes Treatment Notes Treatment Clinical Notes Mar, Chronic bronchitis, simple (ICD-10 - J41.0) Mar, DOUGLAS (dyspnea on exertion) (ICD-10 - R06.09) [facility] Other 08-28-2023 Evaluation note* Encounter Date Diagnosis Assessment Notes Treatment Notes Treatment Clinical Notes Mar, Pulmonary nodule (ICD-10 - R91.1) [facility] Other 08-22-2023 Evaluation note* Encounter Date Diagnosis Assessment Notes Treatment Notes Treatment Clinical Notes Mar, Pulmonary nodule (ICD-10 - R91.1) [facility] Other 08-22-2023 Evaluation note* Encounter Date Diagnosis [...] [BMI ] 34.0-34.9, adult (ICD-10 - Z68.34) [facility] Other 08-17-2023 Evaluation note* Encounter Date Diagnosis Assessment Notes Treatment Notes Treatment Clinical Notes Mar, Acute bilateral low back pain without sciatica (ICD-10 - M54.50) [facility] Other 08-08-2023 Evaluation note* Encounter Date Diagnosis [...] 3 mo as needed. Continue weight loss [facility] Other 04-09-2023 Evaluation note* Encounter Date Diagnosis Assessment Notes Treatment Notes Treatment Clinical Notes Nov, Obstructive sleep apnea (adult) (pediatric) (ICD-10 - G47.33) AHI 34, CPAP14, [facility] Other 04-06-2023 Evaluation note* Encounter Date Diagnosis [...] use, the patient reduces the risk for WA, CVA, HTN, cardiac dysrhythmias and sudden cardiac [...] High risk medication use (ICD-10 - Z79.899) [facility] Other 03-13-2023 Evaluation note* Encounter Date Diagnosis Assessment Notes Treatment Notes Treatment Clinical Notes Oct, Acute non-recurrent maxillary sinusitis (ICD-10 - J01.00) Instructed to use Flonase NS for congestion, Tessalon for cough, Tylenol for pain and fever. Oct, Acute cough (ICD-10 - R05.1) Head upright, push fluids and Tessalon perles [facility] Other 02-28-2023 Evaluation note* Encounter Date Diagnosis Assessment Notes Treatment Notes Treatment Clinical Notes Sep, Pure hypercholestero lemia (ICD-10 - E78.00) [facility] Other Evaluation noteNo InformationNort [employer] Other Evaluation noteNo assessment information available [facility] Work Phone: [facility] general Narrative - Reported* Type Description Date Medical History Essential hypertension Medical History ASHD (arteriosclerotic heart dis ease) Medical History Chronic venous insufficiency Medical History Chronic bronchitis, simple Medical History High cholesterol Medical History Lumbar spondylosis Medical History Obesity (BMI 30-39.9) Medical History Obstructive sleep apnea (adult) (pediatric) [facility] Other History general Narrative - Reported* Type [...] COLONSCOPY 2018 Hospitalization History SEE SURGICAL HX Pre[facility] Other Hisiisw general Narrative - Reported* Type Description Date [...] COLONSCOPY 2018 Hospitalization History SEE SURGICAL HX Pre[facility] Other Hisjuff general Narrative - Reported* Type Description Date [...] COLONSCOPY 2018 Hospitalization History SEE SURGICAL HX Pre[facility] Other Reason for referral (narrative)* Reason Referral for COPD an d RLD Diagnosis 1 Restrictive lung dis ease (J98.4) Diagnosis 2 Chronic bronchitis, simple (J41.0) Diagnosis 3 Pulmonary nodule (R9 1.1) Diagnosis 4 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 Obesity may contribute to respiratory complaints. Clinical Notes Labs, CT, PFT Pre[facility] Other Reason for referral (narrative)* Reason Referral for persist ent thoracolumbar spine pain Diagnosis 1 Acute bilateral thor acic back pain (M54.6) Diagnosis 2 Lumbar spondylosis ( M47.816) Diagnosis 3 Age-related osteopor osis without current pathological fracture (M81.0) Referral Organization [facility] [employer] karin Referring Provider First Name Edwin Referring Provider Last Name Marques Referring Provider Specialty Internal Mt astrid Referred Organization [facility] Referred Provider Freddie Cotton Referred Address [address], [place],[address] Referred Provider Specialty Pain Medicin e Referral Priority Routine General Notes Patient w/ known deg enerative arthritis of the spine w/ persistent moderate to severe thoracolumbar spine pain w/ paraspinal muscle spasms. Completed PT w/ some temporary improvement. Stretching, Tylenol and Tramadol helping w/ the pain. Refer for alternative treatment for persistent back pain. Pre[facility] Other Summary Purpose Family History No Family History Records FoundNo Family History Records FoundNo Family History Records FoundNo Family History Records Found Advance Directives Advance Directive Response Recorded Date/ Time Advance Directives No April 11:03am Chief Complaint and Reason for Visit Chief Complaint J41.0 R06.09 Additional Source Comments REASON FOR VISIT (unrecogniz ed section and content) Medication QuestionCongestio n [phone] ATBwellnessNo InformationCPAP Equipment?4 month follow upBack SpasmsNo InformationXR resultsreferral for PTNo InformationNo InformationNo InformationCT resultsDifferent InhalerPFT resultstesting resultsback painMedicationNo InformationDexa [phone] cold/sore throatNo Information4 month Follow upHR-AtenololUpdateNo Information INFORMATION SOURCE (unrecogn ized section and content) DATE CREATED AUTHOR 01/01/2023 [facility] DATE CREATED AUTHOR AUTHOR'S ORGANIZ ATION 05/28/2023 [facility] DATE CREATED AUTHOR AUTHOR'S ORGANIZ ATION 08/05/2023 [facility] DATE CREATED AUTHOR AUTHOR'S ORGANIZ ATION 09/20/2023 [facility] [employer] EPIC Care Teams (unrecognized sec tion [...] BE BASED ON THE PRIMARY CLINICAL RECORDS. [employer] provides no warranty or guarantee of the accuracy or completeness of information in this document.
[2024-01-02 13:34] LABS: Anion Gap 14.1; BUN Creatinine Ratio 15.3; Calcium 9.6 mg/dL (8.5-10.1); Carbon Dioxide 24.1 mmol/L (21.0-32.0); Chloride 108 mmol/L (98-107); Estimated GFR (African America >60 (>=60); Estimated GFR (Non-African Ame >60 (>=60); Glucose 102 mg/dL (74-106); Potassium 4.2 mmol/L (3.5-5.1); Sodium 142 mmol/L (136-145)
== END 2024-01-02 10:41 | disposition home or self-care (01) ==
LOC: LAB 10:44
PROVIDERS: PCP Internal Medicine; Visit Provider Internal Medicine
DX: E87.6 Hypokalemia (principal)
CPT/HCPCS: 36415; 80048

== ENCOUNTER 2024-01-09 07:41 | Outpatient (OUT) | payer MEDICARE, SELFPAY ==
[2024-01-09 10:35] LABS: Anion Gap 12.8; Calcium 9.8 mg/dL (8.5-10.1); Carbon Dioxide 25.7 mmol/L (21.0-32.0); Chloride 104 mmol/L (98-107); Estimated GFR (African America >60 (>=60); Estimated GFR (Non-African Ame >60 (>=60); Glucose 114 mg/dL (74-106); Potassium 3.5 mmol/L (3.5-5.1); Sodium 139 mmol/L (136-145)
--- OUTSIDE RECORDS SUMMARY | 2024-01-10 07:45 | XMS_ITS | CCD ---
Author Organization [facility] Care Team Providers Care Medical Appointment Scheduler Name Role Phone Edwin Mohan Unavailable MARQUES, DR PINEDA Admitting Unavailable BALL, DR PINEDA Attending Unavailable BALL, DR PINEDA Primary Care Unavailable MARQUES, DR PINEDA Consulting Unavailable MARQUES, DR PINEDA Admitting Unavailable MARQUES, DR PINEDA Attending Unavailable MARQUES, DR PINEDA Primary Care Unavailable MARQUES, DR PINEDA Consulting Unavailable WEST, DR BHARTI De La Rosa Consulting Unavailable MARQUES, DR PINEDA Admitting Unavailable BALL, DR PINEDA Attending Unavailable MARQUES, DR PINEDA Primary Care Unavailable Marques, DO Pineda Primary Care Provider [phone] DO Edwin Mohan Attending Provider Edwin Mohan Attending Unavailable Marques, Edwin Primary Care Unavailable Marques, Edwin Admitting Unavailable Ailin CHO, Raphael Luna Attending Unavailable Ailin CHO, Raphael Luna Attending Unavailable Ailin CHO, Anddaisy Luna Attending Unavailable ANGEL CAMPOS Attending Unavailable YANY MARTINEZ Attending Unavailable Allergies Allergy Classification Reported Allergen(s) Allergy Type Date of Onset Reaction(s) Facility (7 sources) Cefaclor; Translations: [Ceclor] Drug Allergy Unknown [facility] Repository (20 sources) Ciprofloxacin Drug Allergy Unknown [facility] Other (1 source) Ciprofloxacin Drug Allergy [facility] Repository (1 source) Robafen DM Cough-Chest Congest Drug allergy (disorder) [facility] Repository (20 sources) Ceclor *CEPHALOSPORINS* Propensity to adverse reactions Unknown [facility] Other Medications Current Medications Medication Drug Class(es) Dates Sig (Normalized) Sig (Original) [id number] actuat albuterol 0.09 mg/actuat metered dose [...] Active Start: 04-12-2023 take 1 tablet by [facility] twice daily as needed for pain traMADol [...] current use of drug therapy; Translations: [Other intermediate (current) drug therapy] Episodic Other diseases of [...] 2016 Episodic Other aftercare (2 sources) 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 Admission #: [id number] Family : Order #: [id number] CLICK HERE TO VIEW EXAM RADIOLOGY REPORT [...] Treatments None Family Cancers None LOCATION: [facility] BREAST COMPOSITION: Scattered areas fibroglandular density. [...] MD on 05/26/2022 at 07:48 Normal [facility] CBC AUTO DIFFon 03-27-2022 BASO # 0.0 103/ul Normal 0.0-0.1 [facility] Comment on above: Performed By: #### C BC #### [facility] [address] [address] [address] Eduardo Segura Basophils/100 WBC (Bld) 0.3 % Normal 0.2-2.0 [facility] Comment on above: Performed By: #### C BC #### [facility] [address] [place] [address] Dr. Eduardo Segura EO # 0.3 103/ul Normal 0.0-0.7 [facility] Comment on above: Performed By: #### C BC #### [facility] [address] [place] [address] Dr. Eduardo Segura Eosinophils/100 WBC (Bld) 4.3 % Normal 0.9-7.0 [facility] Comment on above: Performed By: #### C BC #### [facility] [address] [place] [address] Dr. Eduardo Segura Erythrocyte distribution width (RBC) [Ratio] 13.7 % Normal 11.0-15.0 [facility] Comment on above: Performed By: #### C BC #### [facility] [address] [place] [address] Dr. Eduardo Segura Hematocrit (Bld) [Volume fraction] 42.6 % Normal 36.0-48.0 [facility] Comment on above: Performed By: #### C BC #### [facility] [address] [place] [address] Dr. Eduardo Segura Hemoglobin (Bld) [Mass/Vol] 14.1 g/dL Normal 12.0-16.0 [facility] Comment on above: Performed By: #### C BC #### [facility] [address] [place] [address] Dr. Eduardo Segura IG # 0.02 10e3/ul Normal 0.00-0.03 [facility] Comment on above: Performed By: #### C BC #### [facility] [address] [place] [address] Dr. Eduardo Segura IG % 0.3 % Normal 0.0-0.5 [facility] Comment on above: Performed By: #### C BC #### [facility] [address] [place] [address] Dr. Eduardo Segura LYMPH # 2.3 103/ul Normal 1.2-3.8 [facility] Comment on above: Performed By: #### C BC #### [facility] [address] [place] [address] Dr. Eduardo Segura Lymphocytes/100 WBC (Bld) 31.9 % Normal 20.5-60.0 [facility] Comment on above: Performed By: #### C BC #### [facility] [address] [place] [address] Dr. Eduardo Segura MANUAL DIFF REQ NO Normal [facility] Comment on above: Performed By: #### C BC #### [facility] [address] [place] [address] Dr. Eduardo Segura MCH (RBC) [Entitic mass] 31.1 pg Normal 26.7-34.0 [facility] Comment on above: Performed By: #### C BC #### [facility] [address] [place] [address] Dr. Eduardo Segura MCHC (RBC) [Mass/Vol] 33.1 g/dL Normal 29.9-35.2 [facility] Comment on above: Performed By: #### C BC #### [facility] [address] [place] [address] Dr. Eduardo Segura MCV (RBC) [Entitic vol] 94.0 fL Normal 81.0-99.0 [facility] Comment on above: Performed By: #### C BC #### [facility] [address] [place] [address] Dr. Eduardo Segura MONO # 0.6 103/ul Normal 0.3-0.8 [facility] Comment on above: Performed By: #### C BC #### [facility] [address] [place] [address] Dr. Eduardo Segura Monocytes/100 WBC (Bld) 7.7 % Normal 1.7-12.0 [facility] Comment on above: Performed By: #### C BC #### [facility] [address] [place] [address] Dr. Eduardo Segura NEUT # 4.0 103/ul Normal 1.4-6.5 [facility] Comment on above: Performed By: #### C BC #### [facility] [address] [place], [place] [id number] Dr. Eduardo Segura Neutrophils/100 WBC (Bld) 55.5 % Normal 43.0-75.0 [facility] Comment on above: Performed By: #### C BC #### [facility] [address] [place] [address] Dr. Eduardo Segura Platelet mean volume (Bld) [Entitic vol] 10.2 fL Normal 9.5-13.5 [facility] Comment on above: Performed By: #### C BC #### [facility] [address] [place] [address] Dr. Eduardo Segura PLT 286 103/ul Normal 150-450 [facility] Comment on above: Performed By: #### C BC #### [facility] [address] [place] [address] Dr. Eduardo Segura RBC 4.53 106/ul Normal 4.20-5.40 [facility] Comment on above: Performed By: #### C BC #### [facility] [address] [place] [address] Dr. Eduardo Segura WBC 7.2 103/ul Normal 4.0-11.0 [facility] Comment on above: Performed By: #### C BC #### [facility] [address] [place] [address] Dr. Eduardo Segura GLYCOHEMOGLOBIN A1Con 2021 ADA RECOMMENDATION SEE BELOW Normal [facility] Comment on above: Result Comment: ADA RECOMMENDED LIMIT 4.0 - 6.0 ADA THERAPEUTIC TARGET < 7.0 ACTION SUGGESTED > 7.0 Performed By: #### A 1C #### [facility] [address] [place] [address] Dr. Eduardo Segura Glucose [Mass/Vol] 134 mg/dL Normal [facility] Comment on above: Performed By: #### A 1C #### [facility] [address] [place] [address] Dr. Eduardo Segura HbA1c (Bld) [Mass fraction] 6.3 % Critically high 4.5-6.2 [facility] Comment on above: Performed By: #### A 1C #### [facility] [address] [address] [address] Eduardo Segura LIPID PROFILEon 03-27-2022 CHOL-HDL RATIO NORM SEE BELOW Normal [facility] Comment on above: Result Comment: 3.3 - 4.4 LOW RISK 4.4 - 7.1 AVERAGE RISK 7.1 - 11.0 MODERATE RISK >11.0 HIGH RISK Performed By: #### B MP, LIPID, ALT #### [facility] [address] [address] [address] Eduardo Segura Cholesterol [Mass/Vol] 154 mg/dL Normal <=200 [facility] Comment on above: Performed By: #### B MP, LIPID, ALT #### [facility] [address] [address] [address] Eduardo Segura Cholesterol in HDL [Mass/Vol] 60 mg/dL Normal 40-60 [facility] Comment on above: Performed By: #### B MP, LIPID, ALT #### [facility] [address] [place] [address] Dr. Eduardo Segura Cholesterol in LDL [Mass/Vol] 75.4 mg/dL Normal [facility] Comment on above: Performed By: #### B MP, LIPID, ALT #### [facility] [address] [address] [address] Eduardo Segura Cholesterol.total/Cho lesterol in HDL [Mass ratio] 2.6 {ratio} Normal [facility] Comment on above: Performed By: #### B MP, LIPID, ALT #### [facility] [address] [address] [address] Eduardo Segura HDL NORMAL > or = 60 mg/dl - LOW CARDIOVASCULAR RISK <40 mg/dl - HIGH CARDIOVASCULAR RISK Normal [facility] Comment on above: Performed By: #### B MP, LIPID, ALT #### [facility] [address] [place] [address] Dr. Eduardo Segura LDL CALC NORMAL SEE BELOW Normal [facility] Comment on above: Result Comment: <100 mg/dl OPTIMAL 100 - 129 mg/dl NEAR OR ABOVE OPTIMAL 130 - 159 mg/dl BORDERLINE HIGH 160 - 189 mg/dl HIGH >190 mg/dl VERY HIGH Performed By: #### B MP, LIPID, ALT #### [facility] [address] [address] [address] Eduardo Segura Triglyceride [Mass/Vol] 93 mg/dL Normal <=150 [facility] Comment on above: Performed By: #### B MP, LIPID, ALT #### [facility] [address] [address] [address] Eduardo Segura VLDL CALC 18.6 mg/dL Normal [facility] Comment on above: Performed By: #### B MP, LIPID, ALT #### [facility] [address] [address] [address] Eduardo Segura PROF CHEM 8 (BAS METB)on Anion gap [Moles/Vol] 15.0 mmol/L Normal [facility] Comment on above: Performed By: #### B MP, LIPID, ALT #### [facility] [address] [place] [address] Dr. Eduardo Segura Calcium [Mass/Vol] 9.8 mg/dL Normal 8.5-10.1 [facility] Comment on above: Performed By: #### B MP, LIPID, ALT #### [facility] [address] [place] [address] Dr. Eduardo Segura Chloride [Moles/Vol] 105 mmol/L Normal 98-107 [facility] Comment on above: Performed By: #### B MP, LIPID, ALT #### [facility] [address] [address] [address] Eduardo Segura CO2 [Moles/Vol] 25.2 mmol/L Normal 21.0-32.0 [facility] Comment on above: Performed By: #### B MP, LIPID, ALT #### [facility] [address] [address] [address] Eduardo Segura Creatinine [Mass/Vol] 0.77 mg/dL Normal 0.55-1.02 [facility] Comment on above: Performed By: #### B MP, LIPID, ALT #### [facility] [address] [address] [address] Eduardo Segura EGFR-AF OMANI >60 Normal >=60 [facility] Comment on above: Performed By: #### B MP, LIPID, ALT #### [facility] [address] [place] [address] Dr. Eduardo Segura EGFR-NON AF OMANI >60 Normal >=60 [facility] Comment on above: Performed By: #### B MP, LIPID, ALT #### [facility] [address] [place] [address] Dr. Eduardo Segura Glucose [Mass/Vol] 142 mg/dL Critically high 74-106 [facility] Comment on above: Performed By: #### B MP, LIPID, ALT #### [facility] [address] [place] [address] Dr. Eduardo Segura Potassium [Moles/Vol] 4.2 mmol/L Normal 3.5-5.1 [facility] Comment on above: Performed By: #### B MP, LIPID, ALT #### [facility] [address] [place] [address] Dr. Eduardo Segura Sodium [Moles/Vol] 141 mmol/L Normal 136-145 [facility] Comment on above: Performed By: #### B MP, LIPID, ALT #### [facility] [address] [place] [address] Dr. Eduardo Segura Urea nitrogen [Mass/Vol] 17.0 mg/dL Normal 7.0-18.0 [facility] Comment on above: Performed By: #### B MP, LIPID, ALT #### [facility] [address] [place] [address] Dr. Eduardo Segura Urea nitrogen/Creatinine [Mass ratio] 22.1 mg/mg Normal [facility] Comment on above: Performed By: #### B MP, LIPID, ALT #### [facility] [address] [place] [address] Dr. Eduardo Segura [facility] 03-27-2022 ALT [Catalytic activity/Vol] 20 U/L Normal 14-59 [facility] Comment on above: Performed By: #### B MP, LIPID, ALT #### [facility] [address] [place] [address] Dr. Yilan Segura Vital Signs Date Time Vital Sign Value Performing Clinician Facility 08-09-2023 15:00-0500 Body height 165.1 cm Edwin Ball Other [facility] Other 08-09-2023 15:00-0500 Body mass index (BMI) [Ratio] 32.88 kg/m2 Edwin Ball Other [facility] Other 08-09-2023 15:00-0500 Body weight 89.63 kg Edwin Ball Other [facility] Other 08-09-2023 15:00-0500 Diastolic blood pressure 94 mm[Hg] Edwin Ball Other [facility] Other 08-09-2023 15:00-0500 Respiratory rate 12 /min Edwin Ball Other [facility] Other 08-09-2023 15:00-0500 Systolic blood pressure 134 mm[Hg] Edwin Ball Other [facility] Other 06-08-2023 14:15-0400 Body height 165.1 cm Edwin Ball Other [facility] Other 06-08-2023 14:15-0400 Body mass index (BMI) [Ratio] 33.71 kg/m2 Edwin Ball Other [facility] Other 06-08-2023 14:15-0400 Body weight 91.9 kg Edwin Ball Other [facility] Other 06-08-2023 14:15-0400 Diastolic blood pressure 82 mm[Hg] Edwin Ball Other [facility] Other 06-08-2023 14:15-0400 Respiratory rate 12 /min Edwin Ball Other [facility] Other 06-08-2023 14:15-0400 Systolic blood pressure 128 mm[Hg] Edwin Ball Other [facility] Other 06-03-2023 11:30-0400 Body height 165.1 cm Edwin Ball Other [facility] Other 06-03-2023 11:30-0400 Body mass index (BMI) [Ratio] 33.71 kg/m2 Edwin Ball Other [facility] Other 06-03-2023 11:30-0400 Body weight 91.9 kg Edwin Ball Other [facility] Other 06-03-2023 11:30-0400 Diastolic blood pressure 80 mm[Hg] Edwin Ball Other [facility] Other 06-03-2023 11:30-0400 Respiratory rate 12 /min Edwin Ball Other [facility] Other 06-03-2023 11:30-0400 Systolic blood pressure 130 mm[Hg] Edwin Ball Other [facility] Other 04-12-2023 10:45-0400 Body height 165.1 cm Edwin Ball Other [facility] Other 04-12-2023 10:45-0400 Body mass index (BMI) [Ratio] 34.61 kg/m2 Edwin Ball Other [facility] Other 04-12-2023 10:45-0400 Body weight 94.35 kg Edwin Ball Other [facility] Other 04-12-2023 10:45-0400 Diastolic blood pressure 74 mm[Hg] Edwin Ball Other [facility] Other 04-12-2023 10:45-0400 Respiratory rate 20 /min Edwin Ball Other [facility] Other 04-12-2023 10:45-0400 Systolic blood pressure 116 mm[Hg] Edwin Ball Other [facility] Other 03-29-2023 10:30-0400 Body height 165.1 cm Edwin Ball Other [facility] Other 03-29-2023 10:30-0400 Body mass index (BMI) [Ratio] 34.48 kg/m2 Edwin Ball Other [facility] Other 03-29-2023 10:30-0400 Body weight 93.99 kg Edwin Ball Other [facility] Other 03-29-2023 10:30-0400 Diastolic blood pressure 70 mm[Hg] Edwin Ball Other [facility] Other 03-29-2023 10:30-0400 Respiratory rate 12 /min Edwin Ball Other [facility] Other 03-29-2023 10:30-0400 Systolic blood pressure 158 mm[Hg] Edwin Ball Other [facility] Other 11-25-2022 11:30-0400 Body height 165.1 cm Edwin Ball Other [facility] Other 11-25-2022 11:30-0400 Body mass index (BMI) [Ratio] 35.61 kg/m2 Edwni Ball Other [facility] Other 11-25-2022 11:30-0400 Body weight 97.07 kg Edwin Ball Other [facility] Other 11-25-2022 11:30-0400 Diastolic blood pressure 76 mm[Hg] Edwin Ball Other [facility] Other 11-25-2022 11:30-0400 Respiratory rate 12 /min Edwin Ball Other [facility] Other 11-25-2022 11:30-0400 Systolic blood pressure 126 mm[Hg] Edwin Ball Other [facility] Other Encounters Encounter Date Encounter Type Care Provider Facility Start: 10-14-2023 End: 10-14-2023 ambulatory Edwin Ball Other [facility] Other Start: 10-14-2023 Telephone encounter Edwin Ball [facility] Start: 09-19-2023 End: 09-19-2023 ambulatory ANGEL ACMPOS Not Available Start: 08-12-2023 End: 08-12-2023 ambulatory Edwin Ball Other [facility] Other Start: 08-12-2023 Telephone encounter Edwin Ball [facility] Start: 08-11-2023 End: 08-11-2023 ambulatory Edwin Ball Other [facility] Other Start: 08-11-2023 Telephone encounter Edwin Ball [facility] Start: 08-09-2023 End: 08-09-2023 ambulatory Edwin Ball Other [facility] Other Start: 08-09-2023 Office outpatient vi sit 25 minutes Edwin Ball [facility] Start: 08-04-2023 End: 08-04-2023 ambulatory Edwin Ball Other [facility] Other Start: 08-04-2023 Telephone encounter Edwin Ball [facility] Start: 08-02-2023 End: 08-02-2023 ambulatory YANYVALDEMAR MARTINEZ Not Available Start: 07-25-2023 End: 07-26-2023 ambulatory Raphael Parisi MD Facility:[facility] Start: 07-19-2023 End: 07-19-2023 ambulatory Edwin Mohan Other [facility] Other Start: 07-19-2023 Office outpatient vi sit 15 minutes Edwin Mohan [facility] Start: 06-20-2023 End: 06-21-2023 ambulatory Raphael Parisi MD Facility:[facility] Start: 06-16-2023 End: 06-16-2023 ambulatory Edwin Mohan Other [facility] Other Start: 06-16-2023 Telephone encounter Edwin Mohan [facility] Start: 06-15-2023 End: 06-15-2023 ambulatory Edwin Mohan Other [facility] Other Start: 06-15-2023 Telephone encounter Edwin Mohan [facility] Start: 06-13-2023 End: 06-14-2023 ambulatory Raphael Parisi MD Facility:[facility] Start: 06-09-2023 End: 06-09-2023 ambulatory Edwin Mohan Other [facility] Other Start: 06-09-2023 Telephone encounter Edwin Mohan [facility] Start: 06-08-2023 End: 06-08-2023 ambulatory Edwin Mohan Other [facility] Other Start: 06-08-2023 Office outpatient vi sit 15 minutes Edwin Mohan [facility] Start: 06-03-2023 End: 06-03-2023 ambulatory Edwin Mohan Other [facility] Other Start: 06-03-2023 Office outpatient vi sit 25 minutes Edwin Mohan [facility] Start: 05-25-2023 End: 05-25-2023 ambulatory Edwin Moahn Other [facility] Other Start: 05-25-2023 Telephone encounter Edwin Mohan [facility] Start: 05-23-2023 End: 05-23-2023 ambulatory Edwin Ball [facility] Start: 05-23-2023 End: 05-23-2023 ambulatory DO Edwin Marques Work Phone: [facility] Work Phone: Start: 05-23-2023 End: 05-23-2023 Patient encounter procedure DO Edwin Mohan Work Phone: [facility] Work Phone: Start: 04-21-2023 End: 04-21-2023 ambulatory Edwin Mohan Other [facility] Other Start: 04-21-2023 Telephone encounter Edwin Ball [facility] Start: 04-20-2023 End: 04-20-2023 ambulatory Edwin Mohan Other [facility] Other Start: 04-20-2023 Telephone encounter Edwin Ball [facility] Start: 04-18-2023 End: 04-18-2023 ambulatory Edwin Mohan Other [facility] Other Start: 04-18-2023 Telephone encounter Edwin Ball [facility] Start: 04-12-2023 End: 04-12-2023 ambulatory Edwin Ball Other [facility] Other Start: 04-12-2023 Office outpatient vi sit 15 minutes Edwin Mohan [facility] Start: 04-12-2023 Telephone encounter Edwin Ball [facility] Start: 04-07-2023 End: 04-07-2023 ambulatory Edwin Ball Other [facility] Other Start: 04-07-2023 Telephone encounter Edwin Mohan [facility] Start: 03-29-2023 End: 03-29-2023 ambulatory Edwin Mohan Other [facility] Other Start: 03-29-2023 Office outpatient vi sit 15 minutes Edwin Ball [facility] Start: 01-08-[address] EDWIN MOHAN Facili ty:[facility] Start: 11-30-2022 End: 11-30-2022 ambulatory Edwin Mohan Other [facility] Other Start: 11-30-2022 Telephone encounter Edwin Mohan [facility] Start: 11-28-2022 End: 11-28-2022 ambulatory Edwin Mohan Other [facility] Other Start: 11-28-2022 Telephone encounter Edwin Mohan [facility] Start: 11-25-2022 End: 11-25-2022 ambulatory Edwin Mohan Other [facility] Other Start: 11-25-2022 Patient encounter procedure Edwin Mohan [facility] Start: 11-08-2022 End: 11-08-2022 ambulatory Edwin Mohan Other [facility] Other Start: 11-08-2022 Telephone encounter Edwin Mohan [facility] Start: 11-01-2022 End: 11-01-2022 ambulatory Edwin Mohan Other [facility] Other Start: 11-01-2022 Office outpatient vi sit 15 minutes Edwin Ball [facility] Start: 10-19-2022 End: 10-19-2022 ambulatory Edwin Mohan Other [facility] Other Start: 10-19-2022 Telephone encounter Edwin Mohan [facility] Start: 07-22-2022 Adult health examination Edwin Mohan Other [facility] Other Start: 05-25-2022 End: 05-26-[address] [...] high dose seasonal, preservative-free Edwin Mohan Other [facility] Other 06-23-2022 influenza, high dose seasonal, preservative-free Edwin Mohan Other [facility] Other 05-18-2022 COVID-19 Pfizer (bivalent) Edwin Mohan Other [facility] Other 12-12-2021 COVID-19 Pfizer Edwin kurtz Other [facility] Other 12-12-2021 COVID-19 Vaccine Pfi zer - Documentation Purposes Only Edwin Mohan Other [facility] Other 07-21-2021 influenza virus vaccine, split virus (incl. purified surface antigen) Edwin Marques Other [facility] Other 05-22-2021 COVID-19 Vaccine Pfi zer - Documentation Purposes Only Edwin Marques Other [facility] Other 10-08-2020 COVID-19 Vaccine Pfi zer - Documentation Purposes Only Edwin Marques Other [facility] Other 09-17-2020 COVID-19 Vaccine Moderna - Documentation Purposes Only Edwin Mohan Other [facility] Other 09-17-2020 COVID-19 Vaccine Pfi zer - Documentation Purposes Only Edwin Mohan Other [facility] Other 04-30-2020 influenza virus vaccine, split virus (incl. purified surface antigen) Edwin Mohan Other [facility] Other 05-18-2019 pneumococcal polysaccharide vaccine, 23 valent Edwin Mohan Other [facility] Other 05-01-2018 pneumococcal polysaccharide vaccine, 23 valent Edwin Mohan Other [facility] Other 08-02-2017 diphtheria, tetanus toxoids and acellular pertussis vaccine, unspecified formulation Edwin Mohan Other [facility] Other 06-05-2015 pneumococcal conjuga te vaccine, 13 valent Edwin Mohan Other [facility] Other 06-04-2015 pneumococcal conjuga te vaccine, 13 valent Edwin Mohan Other [facility] Other Payers Date Payer Category Payer Self-pay 2023 Private Health Insurance [id number] 2022 Medicare 2022 Private Health Insurance 1958 Medicare [id number] 2.1 [id number] Private Health Insurance CLI [id number] 1946 Unknown [id number] 2.16.84 [id number] 1945 Unknown [id number] 2.16.84 [id number] 1946 Unknown [id number] 2.16.84 0.1.602379.3.579.2.593 1946 Unknown [id number] 2.16. [id number] 1946 Unknown [id number] 2.16. [id number] 1946 Unknown [id number] 2.16. 840.1.221458.3.579.2.196 1946 Unknown [id number] 2.16.84 0.1.438672.3.579.2.1259 1946 Unknown [id number] 2.16.840 .1.329033.3.579.2.1259 Unknown [id number] 2.16.8 [id number] Social History Date Type Detail Facility Sex Assigned At [facility] [email or web address] Other Start: 1945 Sex Assigned At Female F [facility] Clinical Notes 10-19-2022 to 10-14-2023 Note Date & Type Note Facility 10-14-2023 Evaluation note Encounter Date Diagnosis Assessment Notes Sep, Acute bilateral thoracic back pain (ICD-10 - M54.6) [facility] [email or web address] Other [id number] Evaluation note* Encounter Date Diagnosis Assessment Notes [...] is aware of the benefits associated with UDSTIN: With continued use, the patient reduces the risk for ME, CVA, HTN, cardiac dysrhythmias and sudden cardiac [...] smoker would recommend repeat in 12 months. [facility] Other 12-14-2023 Evaluation note* Encounter Date Diagnosis Assessment Notes Treatment Notes Treatment Clinical Notes Jul, Restrictive lung disease (ICD-10 - J98.4) [facility] Other 11-28-2023 Evaluation note* Encounter Date Diagnosis [...] Send for COVID PCR - results negative [facility] Other 10-25-2023 Evaluation note* Encounter Date Diagnosis Assessment Notes Treatment Notes Treatment Clinical Notes May, Age-related osteoporosis without current pathological fracture (ICD-10 - M81.0) [facility] Other 10-19-2023 Evaluation note* Encounter Date Diagnosis Assessment Notes Treatment Notes Treatment Clinical Notes May, Acute bilateral thoracic back pain (ICD-10 - M54.6) [facility] Other 10-18-2023 Evaluation note* Encounter Date Diagnosis [...] index [BMI] 34.0-34.9, adult (ICD-10 - Z68.34) [facility] Other 10-13-2023 Evaluation note* Encounter Date Diagnosis Assessment Notes Treatment Notes Treatment Clinical Notes May, Simple chronic bronchitis (ICD-10 - J41.0) Continue LABA/ICS Use DIMITRI as needed for cough/wheezing. Control allergies and GERD symptoms. Weight loss May, Restrictive lung disease (ICD-10 - J98.4) Weight loss important. Avoid exposure to dust, smoke and allergens. Continue treatment for DUSTIN Refer to [facility] for evaluation and treatment May, DUSTIN (obstructive sle ep apnea) (ICD-10 - G47.33) This patient is aware of the benefits associated with DUSTIN: With continued use, the patient reduces the risk for ME, CVA, HTN, cardiac dysrhythmias and sudden cardiac [...] continue exercise to achieve/maintain a normal BMI. [facility] Other 08-31-2023 Evaluation note* Encounter Date Diagnosis Assessment Notes Treatment Notes Treatment Clinical Notes Mar, Chronic bronchitis, simple (ICD-10 - J41.0) [facility] Other 08-30-2023 Evaluation note* Encounter Date Diagnosis Assessment Notes Treatment Notes Treatment Clinical Notes Mar, Chronic bronchitis, simple (ICD-10 - J41.0) [facility] Other 08-30-2023 Evaluation note* Encounter Date Diagnosis Assessment Notes Treatment Notes Treatment Clinical Notes Mar, Chronic bronchitis, simple (ICD-10 - J41.0) Mar, DOUGLAS (dyspnea on exertion) (ICD-10 - R06.09) [facility] Other 08-28-2023 Evaluation note* Encounter Date Diagnosis Assessment Notes Treatment Notes Treatment Clinical Notes Mar, Pulmonary nodule (ICD-10 - R91.1) [facility] Other 08-22-2023 Evaluation note* Encounter Date Diagnosis Assessment Notes Treatment Notes Treatment Clinical Notes Mar, Pulmonary nodule (ICD-10 - R91.1) [facility] Other 08-22-2023 Evaluation note* Encounter Date Diagnosis [...] [BMI ] 34.0-34.9, adult (ICD-10 - Z68.34) [facility] Other 08-17-2023 Evaluation note* Encounter Date Diagnosis Assessment Notes Treatment Notes Treatment Clinical Notes Mar, Acute bilateral low back pain without sciatica (ICD-10 - M54.50) [facility] Other 08-08-2023 Evaluation note* Encounter Date Diagnosis [...] 3 mo as needed. Continue weight loss [facility] Other 04-09-2023 Evaluation note* Encounter Date Diagnosis Assessment Notes Treatment Notes Treatment Clinical Notes Nov, Obstructive sleep apnea (adult) (pediatric) (ICD-10 - G47.33) AHI 34, CPAP14, [facility] Other 04-06-2023 Evaluation note* Encounter Date Diagnosis [...] use, the patient reduces the risk for ME, CVA, HTN, cardiac dysrhythmias and sudden cardiac [...] High risk medication use (ICD-10 - Z79.899) [facility] Other 03-13-2023 Evaluation note* Encounter Date Diagnosis Assessment Notes Treatment Notes Treatment Clinical Notes Oct, Acute non-recurrent maxillary sinusitis (ICD-10 - J01.00) Instructed to use Flonase NS for congestion, Tessalon for cough, Tylenol for pain and fever. Oct, Acute cough (ICD-10 - R05.1) Head upright, push fluids and Tessalon perles [facility] Other 02-28-2023 Evaluation note* Encounter Date Diagnosis Assessment Notes Treatment Notes Treatment Clinical Notes Sep, Pure hypercholestero lemia (ICD-10 - E78.00) [facility] Other Evaluation noteNo InformationNort [employer] Other Evaluation noteNo assessment information available [facility] Work Phone: [employer] general Narrative - Reported* Type Description Date Medical History Essential hypertension Medical History ASHD (arteriosclerotic heart dis ease) Medical History Chronic venous insufficiency Medical History Chronic bronchitis, simple Medical History High cholesterol Medical History Lumbar spondylosis Medical History Obesity (BMI 30-39.9) Medical History Obstructive sleep apnea (adult) (pediatric) [facility] Other Hiscpcy general Narrative - Reported* Type Description Date [...] COLONSCOPY 2018 Hospitalization History SEE SURGICAL HX [facility] Other Hisqfvf general Narrative - Reported* Type Description Date [...] COLONSCOPY 2018 Hospitalization History SEE SURGICAL HX [facility] Other Hisknfm general Narrative - Reported* Type Description Date [...] COLONSCOPY 2018 Hospitalization History SEE SURGICAL HX [facility] Other Reason for referral (narrative)* Reason Referral for COPD an d RLD Diagnosis 1 Restrictive lung dis ease (J98.4) Diagnosis 2 Chronic bronchitis, simple (J41.0) Diagnosis 3 Pulmonary nodule (R9 1.1) Diagnosis 4 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 Marques frazier Referring Provider First Name Edwin Referring Provider Last Name Marques Referring Provider Specialty Internal Wy dicsuad Referred Organization [facility] Referred Provider Yany Martinez Referred Address ,[place], [place],[address] Referred Provider Specialty Pulmonary Di seases Referral Priority Routine General Notes Patient with hx of t obacco use and CT, PFT findings suspicious for COPD/emphysema and ILD. Obesity may contribute to respiratory complaints. Clinical Notes Labs, CT, PFT [facility] Other Reason for referral (narrative)* Reason Referral for persist ent thoracolumbar spine pain Diagnosis 1 Acute bilateral thor acic back pain (M54.6) Diagnosis 2 Lumbar spondylosis ( M47.816) Diagnosis 3 Age-related osteopor osis without current pathological fracture (M81.0) Referral Organization [facility] Marques [employer] karin Referring Provider First Name Edwin Referring Provider Last Name Marques Referring Provider Specialty Internal Wy dicsuad Referred Organization [facility] Referred Provider Freddie Cotton Referred Address [address], [place],[address] Referred Provider Specialty Pain Medicin e Referral Priority Routine General Notes Patient w/ known deg enerative arthritis of the spine w/ persistent moderate to severe thoracolumbar spine pain w/ paraspinal muscle spasms. Completed PT w/ some temporary improvement. Stretching, Tylenol and Tramadol helping w/ the pain. Refer for alternative treatment for persistent back pain. [facility] Other Summary Purpose Family History No Family History Records FoundNo Family History Records FoundNo Family History Records FoundNo Family History Records Found Advance Directives Advance Directive Response Recorded Date/ Time Advance Directives No April 11:03am Chief Complaint and Reason for Visit Chief Complaint J41.0 R06.09 Additional Source Comments REASON FOR VISIT (unrecogniz ed section and content) Medication QuestionCongestio n [phone] ATBwellnessNo InformationCPAP Equipment?4 month follow upBack SpasmsNo InformationXR resultsreferral for PTNo InformationNo InformationNo InformationCT resultsDifferent InhalerPFT resultstesting resultsback painMedicationNo InformationDexa [id number] cold/sore throatNo Information4 month Follow upHR-AtenololUpdateNo Information INFORMATION SOURCE (unrecogn ized section and content) DATE CREATED AUTHOR 01/01/2023 [facility] DATE CREATED AUTHOR AUTHOR'S ORGANIZ ATION 05/28/2023 [facility] DATE CREATED AUTHOR AUTHOR'S ORGANIZ ATION 08/05/2023 [facility] DATE CREATED AUTHOR AUTHOR'S ORGANIZ ATION 09/20/2023 [facility] [employer] Care Teams (unrecognized sec tion and content) Team Status: Active Member Role Status Dates Edwin Mohan DO Primary Care Provider Active Team Status: Inactive Member Role Status Dates Edwin Mohan DO Primary Care Provider, Attending Pr ovider Active Goals (unrecognized section and content) Goals [...] BE BASED ON THE PRIMARY CLINICAL RECORDS. [employer] provides no warranty or guarantee of the accuracy or completeness of information in this document.
== END 2024-01-09 07:42 | disposition home or self-care (01) ==
LOC: LAB 01-10 07:42
PROVIDERS: PCP Internal Medicine; Visit Provider Internal Medicine
DX: E87.6 Hypokalemia (principal)
CPT/HCPCS: 36415; 80048

== ENCOUNTER 2024-01-16 15:27 | Emergency (ER) | payer MEDICARE, SELFPAY ==
[2024-01-16] VITALS (19 sets, daily range): BP systolic 147; BP diastolic 83; PULSE 57–68; TEMP 36.3; O2SAT 90–99; BMI 33.3
--- OUTSIDE RECORDS SUMMARY | 2024-01-16 15:34 | XMS_ITS ---
Patient Summarization (C-CDA 2.1 CCD) Created on: January 16, 2024 MARIA ELENA ALLEN : 1945 Sex: Female Author Organization Sample organization Care Team Providers Care Winterizer Name Role Phone Edwin Mohan Unavailable MARQUES, [...] Unavailable Marques, DO Pineda Primary Care Provider [phone] DO Edwin Mohan Attending Provider [phone] Edwin Mohan Attending Unavailable Marques, Edwin Primary Care Unavailable Marques, Edwin Admitting Unavailable Ailin CHO, Raphael Luna Attending Unavailable Ailin CHO, Anddaisy Luna Attending Unavailable Ailin CHO, Andrius Luna Attending Unavailable ANGEL CAMPOS Attending Unavailable YANY MARTINEZ Attending Unavailable Allergies Allergy Classification Reported Allergen(s) Allergy Type Date of Onset Reaction(s) Facility (7 sources) Cefaclor; Translations: [Ceclor] Drug Allergy Unknown [facility] (20 sources) Ciprofloxacin Drug Allergy Unknown [facility] Other (1 source) Ciprofloxacin Drug Allergy [facility] (1 source) Robafen DM Cough-Chest Congest Drug allergy (disorder) [facility] (20 sources) Ceclor *CEPHALOSPORINS* Propensity to adverse reactions Unknown [facility] Other Encounters Encounter Date Encounter Type Care Provider Facility Start: 10-14-2023 End: 10-14-2023 ambulatory Edwin Mohan Other [facility] Other Start: 10-14-2023 Telephone encounter Edwin [facility] Start: 09-19-2023 End: 09-19-2023 ambulatory ANGEL Boni CAMPSO Not Available Start: 08-12-2023 End: 08-12-2023 ambulatory Edwin Mohan Other [facility] Other Start: 08-12-2023 Telephone encounter Edwin CHUA [facility] Start: 08-11-2023 End: 08-11-2023 ambulatory Edwin Mohan Other [facility] Other Start: 08-11-2023 Telephone encounter Edwin CHUA [facility] Start: 08-09-2023 End: 08-09-2023 ambulatory Edwin Mohan Other [facility] Other Start: 08-09-2023 Office outpatient vi sit 25 minutes Edwin Mohan [facility] Start: 08-04-2023 End: 08-04-2023 ambulatory Edwin Mohan Other [facility] Other Start: 08-04-2023 Telephone encounter Edwin Mohan [facility] Start: 08-02-2023 End: 08-02-2023 ambulatory YANY MARTINEZ Not Available Start: 07-25-2023 End: 07-26-2023 ambulatory Raphael Parisi MD Facility: [facility] Start: 07-19-2023 End: 07-19-2023 ambulatory Edwin Mohan Other [facility] Other Start: 07-19-2023 Office outpatient vi sit 15 minutes Edwin Mohan [facility] Start: 06-20-2023 End: 06-21-2023 ambulatory Raphael Parisi MD Facility: [facility] Start: 06-16-2023 End: 06-16-2023 ambulatory Edwin Mohan Other [facility] Other Start: 06-16-2023 Telephone encounter Edwin CHUA [facility] Start: 06-15-2023 End: 06-15-2023 ambulatory Edwin Mohan Other [facility] Other Start: 06-15-2023 Telephone encounter Edwin Mohan [facility] Start: 06-13-2023 End: 06-14-2023 ambulatory Raphael Parisi MD Facility:[facility] Start: 06-09-2023 End: 06-09-2023 ambulatory Edwin Mohan Other [facility] Other Start: 06-09-2023 Telephone encounter Edwin Mohan [facility] Start: 06-08-2023 End: 06-08-2023 ambulatory Edwin Ball Other [facility] Other Start: 06-08-2023 Office outpatient vi sit 15 minutes Edwin Mohan [facility] Start: 06-03-2023 End: 06-03-2023 ambulatory Edwin Mohan Other [facility] Other Start: 06-03-2023 Office outpatient vi sit 25 minutes Edwin Ball [facility] Start: 05-25-2023 End: 05-25-2023 ambulatory Edwin Mohan Other [facility] Other Start: 05-25-2023 Telephone encounter Edwin Mohan [facility] Start: 05-23-2023 End: 05-23-2023 ambulatory Edwin Mohan Facility:[facility] Start: 05-23-2023 End: 05-23-2023 ambulatory DO Edwin Ball Work Phone: [facility] Work Phone: Start: 05-23-2023 End: 05-23-2023 Patient encounter procedure DO Edwin Ball Work Phone: [facility] Work Phone: Start: 04-21-2023 End: 04-21-2023 ambulatory Edwin Ball Other [facility] Other Start: 04-21-2023 Telephone encounter Edwin Ball [facility] Start: 04-20-2023 End: 04-20-2023 ambulatory Edwin Ball Other [facility] Other Start: 04-20-2023 Telephone encounter Edwin Ball [facility] Start: 04-18-2023 End: 04-18-2023 ambulatory Edwin Ball Other [facility] Other Start: 04-18-2023 Telephone encounter Edwin Ball [facility] Start: 04-12-2023 End: 04-12-2023 ambulatory Edwin Ball Other [facility] Other Start: 04-12-2023 Office outpatient vi sit 15 minutes Edwin Ball [facility] Start: 04-12-2023 Telephone encounter Edwin Ball [facility] Start: 04-07-2023 End: 04-07-2023 ambulatory Edwin Ball Other [facility] Other Start: 04-07-2023 Telephone encounter Edwin Ball [facility] Start: 03-29-2023 End: 03-29-2023 ambulatory Edwin Ball Other [facility] Other Start: 03-29-2023 Office outpatient vi sit 15 minutes Edwin Marques [facility] Start: 01-08-[address] EDWIN MOHAN Facili ty:[facility] Start: 11-30-2022 End: 11-30-2022 ambulatory Edwin Mohan Other [facility] Other Start: 11-30-2022 Telephone encounter Edwin Ball [facility] Start: 11-28-2022 End: 11-28-2022 ambulatory Edwin Ball Other [facility] Other Start: 11-28-2022 Telephone encounter Edwin Ball [facility] Start: 11-25-2022 End: 11-25-2022 ambulatory Edwin Ball Other [facility] Other Start: 11-25-2022 Patient encounter procedure Edwin Mohan [facility] Start: 11-08-2022 End: 11-08-2022 ambulatory Edwin Mohan Other [facility] Other Start: 11-08-2022 Telephone encounter Edwin CHUA [facility] Start: 11-01-2022 End: 11-01-2022 ambulatory Edwin Mohan Other [facility] Other Start: 11-01-2022 Office outpatient vi sit 15 minutes Edwin Mohan [facility] Start: 10-19-2022 End: 10-19-2022 ambulatory Edwin Mohan Other [facility] Other Start: 10-19-2022 Telephone encounter Edwin Mohan [facility] Start: 07-22-2022 Adult health examination Edwin Mohan Other [facility] Other Start: 05-25-2022 End: 05-26-[address] EDWIN MOHAN Facility:[facility] Start: 03-27-2022 End: 03-28-[address] EDWIN MOHAN Facility:[facility] Immunizations Immunization Date Immunization Notes Care Provider Arley lezama 07-03-2022 influenza, high dose seasonal, preservative-free Edwin Mohan Other [facility] Other 06-23-2022 influenza, high dose seasonal, preservative-free Edwin Mohan Other [facility] Other 05-18-2022 COVID-19 Pfizer (bivalent) Edwin Mohan Other [facility] Other 12-12-2021 COVID-19 Pfizer Edwin kurtz Other [facility] Other 12-12-2021 COVID-19 Vaccine Pfi zer - Documentation Purposes Only Edwin Mohan Other [facility] Other 07-21-2021 influenza virus vaccine, split virus (incl. purified surface antigen) Edwin Mohan Other [facility] Other 05-22-2021 COVID-19 Vaccine Pfi zer - Documentation Purposes Only Edwin Mohan Other [facility] Other 10-08-2020 COVID-19 Vaccine Pfi zer - Documentation Purposes Only Edwin Mohan Other [facility] Other 09-17-2020 COVID-19 Vaccine Moderna - Documentation Purposes Only Edwin Mohan Other [facility] Other 09-17-2020 COVID-19 Vaccine Pfi zer - Documentation Purposes Only Edwin Mohan Other [facility] Other 04-30-2020 influenza virus vaccine, split virus (incl. purified surface antigen) Edwin Mohan Other [facility] Other 05-18-2019 pneumococcal polysaccharide vaccine, 23 valent Edwin Mohan Other [facility] Other 05-01-2018 pneumococcal polysaccharide vaccine, 23 valent Edwin Mohan Other [facility] Other 08-02-2017 diphtheria, tetanus toxoids and acellular pertussis vaccine, unspecified formulation Edwin Mohan Other [facility] Other 06-05-2015 pneumococcal conjuga te vaccine, 13 valent Edwin Ball Other [facility] Other 06-04-2015 pneumococcal conjuga te vaccine, 13 valent Edwin Ball Other [facility] Other Medications Current Medications Medication Drug Class(es) Dates Sig (Normalized) Sig (Original) [id number] 200 actuat albuterol 0.09 mg/actuat metered dose [...] Start: 04-12-2023 take 1 tablet by yovany twice daily as needed for pain traMADol [...] Corticosteroid Start: 03-29-2023 Kenalog-40 Mar, 40 mg Payers Date Payer Category Payer Self-pay 2023 Private Health Insurance [id number] 2022 Medicare 2022 Private Health Insurance 1958 Medicare [id number] 2.1 [id number] 1959 Private Health Insurance [facility] [id number] 1945 Unknown [id number] [id number] 1945 Unknown [id number] 2.16.84 [id number] 1945 Unknown [id number] 2.16.84 [id number] 1945 Unknown [id number] 2.16. [id number] 1945 Unknown [id number] 2.16. [id number] 1945 Unknown [id number] 2.16. [id number] 1945 Unknown [id number] 2.16.84 [id number] 1945 Unknown [id number] [id number] Unknown [id number] 2.16.8 [id number] Problems Active Problems Problem Classification Problem Date Documented Da te Episodic/Chronic Anxiety disorders (2 sources) Generalized anxiety disorder; Translations: [Generalized anxiety disorder] Chronic Chronic obstructive pulmonary disease and bronchiectasis (20 sources) Simple chronic bronchitis; Translations: [Simple chronic bronchitis] Chronic Coronary atherosclerosis and other heart disease (20 sources) Coronary arteriosclerosis; Translations: [Atherosclerotic heart disease of [place] coronary artery without angina pectoris] Chronic Diabetes [...] current use of drug therapy; Translations: [Other senior living (current) drug therapy] Episodic Other diseases of [...] 2016 Episodic Other aftercare (2 sources) 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; Translations: [[employer] 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] Onset: 03-29-2022 Episodic Other [...] [Acute cystitis without hematuria] Onset: 06-06-2018 Episodic Procedures Date Procedure Procedure Detail Performing Clinician Start: 05-01-2018 Screening for malign ant neoplasm of colon Edwin Mohan Other Start: 08-01-2017 Screening for osteoporosis Edwin Mohan Other Depression screening Ana Mohan Other Screening for malign ant neoplasm of breast Edwin Mohan Other Screening for malign ant neoplasm of skin Edwin Mohan Other Results Test Name Value Interpretation Reference Range Facil ity MG MAMM SCREEN 3D JESSENIA CADon 05-25-2022 MG MAMM SCREEN 3D JESESNIA CAD Patient: MARIA ELENA ALLEN Exam Date: 05/25/2022 : 1945 Gender:F Ordering : DR EDWIN MOHAN D.O. Admission #: [id number] Family : Order #: [id number] CLICK HERE TO VIEW EXAM RADIOLOGY REPORT [...] Treatments None Family Cancers None LOCATION: [facility] BREAST COMPOSITION: Scattered areas fibroglandular density. [...] MD on 05/26/2022 at 07:42 Approved by: Bahrti Paige MD on 05/26/2022 at 07:48 Normal [facility] CBC AUTO DIFFon 03-27-2022 BASO # 0.0 103/ul Normal 0.0-0.1 [facility] Comment on above: Performed By: #### C BC #### [facility] [address] [place] [address] Dr. Eduardo Segura Basophils/100 WBC (Bld) 0.3 % Normal 0.2-2.0 [facility] Comment on above: Performed By: #### C BC #### [facility] [address] [place] [address] Dr. Eduardo Segura EO # 0.3 103/ul Normal 0.0-0.7 [facility] Comment on above: Performed By: #### C BC #### [facility] [address] [place] [address] Dr. Eduardo Segura Eosinophils/100 WBC (Bld) 4.3 % Normal 0.9-7.0 [facility] Comment on above: Performed By: #### C BC #### [facility] [address] [place] [address] Dr. Eduardo Segura Erythrocyte distribution width (RBC) [Ratio] 13.7 % Normal 11.0-15.0 [facility] Comment on above: Performed By: #### C BC #### [facility] [address] [place] [address] Dr. Eduardo Segura Hematocrit (Bld) [Volume fraction] 42.6 % Normal 36.0-48.0 [facility] Comment on above: Performed By: #### C BC #### [facility] [address] [place] [address] Dr. Eduardo Segura Hemoglobin (Bld) [Mass/Vol] 14.1 g/dL Normal 12.0-16.0 [facility] Comment on above: Performed By: #### C BC #### [facility] [address] [place] [address] Dr. Eduardo Segura IG # 0.02 10e3/ul Normal 0.00-0.03 [facility] Comment on above: Performed By: #### C BC #### [facility] [address] [place] [address] Dr. Eduardo Segura IG % 0.3 % Normal 0.0-0.5 [facility] Comment on above: Performed By: #### C BC #### [facility] [address] [place] [address] Dr. Eduardo Segura LYMPH # 2.3 103/ul Normal 1.2-3.8 [facility] Comment on above: Performed By: #### C BC #### [facility] [address] [place] [address] Dr. Eduardo Segura Lymphocytes/100 WBC (Bld) 31.9 % Normal 20.5-60.0 [facility] Comment on above: Performed By: #### C BC #### [facility] [address] [place] [address] Dr. Eduardo Segura MANUAL DIFF REQ NO Normal [facility] Comment on above: Performed By: #### C BC #### [facility] [address] [place] [address] Dr. Eduardo Segura MCH (RBC) [Entitic mass] 31.1 pg Normal 26.7-34.0 [facility] Comment on above: Performed By: #### C BC #### [facility] [address] [place] [address] Dr. Eduardo Segura MCHC (RBC) [Mass/Vol] 33.1 g/dL Normal 29.9-35.2 [facility] Comment on above: Performed By: #### C BC #### [facility] [address] [place] [address] Dr. Eduardo Segura MCV (RBC) [Entitic vol] 94.0 fL Normal 81.0-99.0 [facility] Comment on above: Performed By: #### C BC #### [facility] [address] [place] [address] Dr. Eduardo Segura MONO # 0.6 103/ul Normal 0.3-0.8 [facility] Comment on above: Performed By: #### C BC #### [facility] [address] [place] [address] Dr. Eduardo Segura Monocytes/100 WBC (Bld) 7.7 % Normal 1.7-12.0 [facility] Comment on above: Performed By: #### C BC #### [facility] [address] [place] [address] Dr. Eduardo Segura NEUT # 4.0 103/ul Normal 1.4-6.5 [facility] Comment on above: Performed By: #### C BC #### [facility] [address] [place] [address] Dr. Eduardo Segura Neutrophils/100 WBC (Bld) 55.5 % Normal 43.0-75.0 [facility] Comment on above: Performed By: #### C BC #### [facility] [address] [place] [address] Dr. Eduardo Segura Platelet mean volume (Bld) [Entitic vol] 10.2 fL Normal 9.5-13.5 [facility] Comment on above: Performed By: #### C BC #### [facility] [address] [place] [address] Dr. Eduardo Segura PLT 286 103/ul Normal 150-450 [facility] Comment on above: Performed By: #### C BC #### [facility] [address] [place] [address] Dr. Eduardo Segura RBC 4.53 106/ul Normal 4.20-5.40 [facility] Comment on above: Performed By: #### C BC #### [facility] [address] [place] [address] Dr. Eduardo Segura WBC 7.2 103/ul Normal 4.0-11.0 [facility] Comment on above: Performed By: #### C BC #### [facility] [address] [place] [address] Dr. Eduardo Segura GLYCOHEMOGLOBIN A1Con 2021 ADA RECOMMENDATION SEE BELOW Normal [facility] Comment on above: Result Comment: ADA RECOMMENDED LIMIT 4.0 - 6.0 ADA THERAPEUTIC TARGET < 7.0 ACTION SUGGESTED > 7.0 Performed By: #### A 1C #### [facility] [address] [place] [address] Dr. Eduardo Segura Glucose [Mass/Vol] 134 mg/dL Normal [facility] Comment on above: Performed By: #### A 1C #### [facility] [address] [place] [address] Dr. Eduardo Segura HbA1c (Bld) [Mass fraction] 6.3 % Critically high 4.5-6.2 [facility] Comment on above: Performed By: #### A 1C #### [facility] [address] [place], [place] [address] Dr. Eduardo Segura LIPID PROFILEon 03-27-2022 CHOL-HDL RATIO NORM SEE BELOW Normal [facility] Comment on above: Result Comment: 3.3 - 4.4 LOW RISK 4.4 - 7.1 AVERAGE RISK 7.1 - 11.0 MODERATE RISK >11.0 HIGH RISK Performed By: #### B MP, LIPID, ALT #### [facility] [address] [place] [address] [address] Eduardo Segura Cholesterol [Mass/Vol] 154 mg/dL Normal <=200 [facility] Comment on above: Performed By: #### B MP, LIPID, ALT #### [facility] [address] [place] [address] [address] Eduardo Segura Cholesterol in HDL [Mass/Vol] 60 mg/dL Normal 40-60 [facility] Comment on above: Performed By: #### B MP, LIPID, ALT #### [facility] [address] [place] [address] [address] Eduardo Segura Cholesterol in LDL [Mass/Vol] 75.4 mg/dL Normal [facility] Comment on above: Performed By: #### B MP, LIPID, ALT #### [facility] [address] [place], [place] [address] Dr. Eduardo Segura Cholesterol.total/Cho lesterol in HDL [Mass ratio] 2.6 {ratio} Normal [facility] Comment on above: Performed By: #### B MP, LIPID, ALT #### [facility] [address] [place], [place] [address] Dr. Eduardo Segura HDL NORMAL > or = 60 mg/dl - LOW CARDIOVASCULAR RISK <40 mg/dl - HIGH CARDIOVASCULAR RISK Normal [facility] Comment on above: Performed By: #### B MP, LIPID, ALT #### [facility] [address] [place], [place] [address] Dr. Eduardo Segura LDL CALC NORMAL SEE BELOW Normal [facility] Comment on above: Result Comment: <100 mg/dl OPTIMAL 100 - 129 mg/dl NEAR OR ABOVE OPTIMAL 130 - 159 mg/dl BORDERLINE HIGH 160 - 189 mg/dl HIGH >190 mg/dl VERY HIGH Performed By: #### B MP, LIPID, ALT #### [facility] [address] [place] [address] [address] Eduardo Segura Triglyceride [Mass/Vol] 93 mg/dL Normal <=150 [facility] Comment on above: Performed By: #### B MP, LIPID, ALT #### [facility] [address] [place] [address] [address] Eduardo Segura VLDL CALC 18.6 mg/dL Normal [facility] Comment on above: Performed By: #### B MP, LIPID, ALT #### [facility] [address] [place] [address] [address] Eduardo Segura PROF CHEM 8 (BAS METB)on Anion gap [Moles/Vol] 15.0 mmol/L Normal [facility] Comment on above: Performed By: #### B MP, LIPID, ALT #### [facility] [address] [place] [address] [address] Eduardo Segura Calcium [Mass/Vol] 9.8 mg/dL Normal 8.5-10.1 [facility] Comment on above: Performed By: #### B MP, LIPID, ALT #### [facility] [address] [place] [address] [address] Eduardo Segura Chloride [Moles/Vol] 105 mmol/L Normal 98-107 [facility] Comment on above: Performed By: #### B MP, LIPID, ALT #### [facility] [address] [place] [address] [address] Eduardo Segura CO2 [Moles/Vol] 25.2 mmol/L Normal 21.0-32.0 [facility] Comment on above: Performed By: #### B MP, LIPID, ALT #### [facility] [address] [place] [address] [address] Eduardo Segura Creatinine [Mass/Vol] 0.77 mg/dL Normal 0.55-1.02 [facility] Comment on above: Performed By: #### B MP, LIPID, ALT #### [facility] [address] [place] [address] [address] Eduardo Segura EGFR-AF BAHAMIAN >60 Normal >=60 [facility] Comment on above: Performed By: #### B MP, LIPID, ALT #### [facility] [address] [place] [address] [address] Eduardo Segura EGFR-NON AF BAHAMIAN >60 Normal >=60 [facility] Comment on above: Performed By: #### B MP, LIPID, ALT #### [facility] [address] [place] [address] [address] Eduardo Segura Glucose [Mass/Vol] 142 mg/dL Critically high 74-106 [facility] Comment on above: Performed By: #### B MP, LIPID, ALT #### [facility] [address] [place] [address] [address] Eduardo Segura Potassium [Moles/Vol] 4.2 mmol/L Normal 3.5-5.1 [facility] Comment on above: Performed By: #### B MP, LIPID, ALT #### [facility] [address] [place] [address] [address] Eduardo Segura Sodium [Moles/Vol] 141 mmol/L Normal 136-145 [facility] Comment on above: Performed By: #### B MP, LIPID, ALT #### [facility] [address] [place] [address] [address] Eduardo Segura Urea nitrogen [Mass/Vol] 17.0 mg/dL Normal 7.0-18.0 [facility] Comment on above: Performed By: #### B MP, LIPID, ALT #### [facility] [address] [place] [address] [address] Eduardo Segura Urea nitrogen/Creatinine [Mass ratio] 22.1 mg/mg Normal [facility] Comment on above: Performed By: #### B MP, LIPID, ALT #### [facility] [address] [place] [address] [address] Eduardo Segura [facility] 03-27-2022 ALT [Catalytic activity/Vol] 20 U/L Normal 14-59 [facility] Comment on above: Performed By: #### B MP, LIPID, ALT #### [facility] [address] [place] [address] [address] Eduardo Segura Social History Date Type Detail Facility Start: 1945 Sex Assigned At Female F [facility] Sex Assigned At [facility] Other Vital Signs Date Time Vital Sign Value Performing Clinician Facility 08-09-2023 15:00-0500 Body height 165.1 cm Edwin Ball Other [facility] Other 08-09-2023 15:00-0500 Body mass index (BMI) [Ratio] 32.88 kg/m2 Edwin Ball Other [facility] Other 08-09-2023 15:00-0500 Body weight 89.63 kg Edwin Ball Other [facility] Other 08-09-2023 15:00-0500 Diastolic blood pressure 94 mm[Hg] Edwin Ball Other [facility] Other 08-09-2023 15:00-0500 Respiratory rate 12 /min Edwin Ball Other [facility] Other 08-09-2023 15:00-0500 Systolic blood pressure 134 mm[Hg] Edwin Ball Other [facility] Other 06-08-2023 14:15-0400 Body height 165.1 cm Edwin Ball Other [facility] Other 06-08-2023 14:15-0400 Body mass index (BMI) [Ratio] 33.71 kg/m2 Edwin Ball Other [facility] Other 06-08-2023 14:15-0400 Body weight 91.9 kg Edwin Ball Other [facility] Other 06-08-2023 14:15-0400 Diastolic blood pressure 82 mm[Hg] Edwin Ball Other [facility] Other 06-08-2023 14:15-0400 Respiratory rate 12 /min Edwin Ball Other [facility] Other 06-08-2023 14:15-0400 Systolic blood pressure 128 mm[Hg] Edwin Ball Other [facility] Other 06-03-2023 11:30-0400 Body height 165.1 cm Edwin Ball Other [facility] Other 06-03-2023 11:30-0400 Body mass index (BMI) [Ratio] 33.71 kg/m2 Edwin Ball Other [facility] Other 06-03-2023 11:30-0400 Body weight 91.9 kg Edwin Ball Other [facility] Other 06-03-2023 11:30-0400 Diastolic blood pressure 80 mm[Hg] Edwin Ball Other [facility] Other 06-03-2023 11:30-0400 Respiratory rate 12 /min Edwin Ball Other [facility] Other 06-03-2023 11:30-0400 Systolic blood pressure 130 mm[Hg] Edwin Ball Other [facility] Other 04-12-2023 10:45-0400 Body height 165.1 cm Edwin Ball Other [facility] Other 04-12-2023 10:45-0400 Body mass index (BMI) [Ratio] 34.61 kg/m2 Edwin Ball Other [facility] Other 04-12-2023 10:45-0400 Body weight 94.35 kg Edwin Ball Other [facility] Other 04-12-2023 10:45-0400 Diastolic blood pressure 74 mm[Hg] Edwin Ball Other [facility] Other 04-12-2023 10:45-0400 Respiratory rate 20 /min Edwin Ball Other [facility] Other 04-12-2023 10:45-0400 Systolic blood pressure 116 mm[Hg] Edwin Ball Other [employer] Other 03-29-2023 10:30-0400 Body height 165.1 cm Edwin Ball Other [employer] Other 03-29-2023 10:30-0400 Body mass index (BMI) [Ratio] 34.48 kg/m2 Edwin Ball Other [employer] Other 03-29-2023 10:30-0400 Body weight 93.99 kg Edwin Ball Other [employer] Other 03-29-2023 10:30-0400 Diastolic blood pressure 70 mm[Hg] Edwin Ball Other [employer] Other 03-29-2023 10:30-0400 Respiratory rate 12 /min Edwin Ball Other [employer] Other 03-29-2023 10:30-0400 Systolic blood pressure 158 mm[Hg] Edwin Ball Other [employer] Other 11-25-2022 11:30-0400 Body height 165.1 cm Edwin Ball Other [employer] Other 11-25-2022 11:30-0400 Body mass index (BMI) [Ratio] 35.61 kg/m2 [facility] Other [employer] Other 11-25-2022 11:30-0400 Body weight 97.07 kg [facility] Other [employer] Other 11-25-2022 11:30-0400 Diastolic blood pressure 76 mm[Hg] [facility] Other [employer] Other 11-25-2022 11:30-0400 Respiratory rate 12 /min [facility] Other [employer] Other 11-25-2022 11:30-0400 Systolic blood pressure 126 mm[Hg] [facility] Other [employer] Other Clinical Notes 10-19-2022 to 10-14-2023 Note Date & Type Note Facility 10-14-2023 Evaluation note Encounter Date Diagnosis Assessment Notes Sep, Acute bilateral thoracic back pain (ICD-10 - M54.6) [facility] Other [id number] Evaluation note* Encounter Date Diagnosis Assessment Notes [...] use, the patient reduces the risk for NE, CVA, HTN, cardiac dysrhythmias and sudden cardiac [...] smoker would recommend repeat in 12 months. [employer] Other 12-14-2023 Evaluation note* Encounter Date Diagnosis Assessment Notes Treatment Notes Treatment Clinical Notes Jul, Restrictive lung disease (ICD-10 - J98.4) [facility] Other 11-28-2023 Evaluation note* Encounter Date Diagnosis [...] Send for COVID PCR - results negative [facility] Other 10-25-2023 Evaluation note* Encounter Date Diagnosis Assessment Notes Treatment Notes Treatment Clinical Notes May, Age-related osteoporosis without current pathological fracture (ICD-10 - M81.0) [facility] Other 10-19-2023 Evaluation note* Encounter Date Diagnosis Assessment Notes Treatment Notes Treatment Clinical Notes May, Acute bilateral thoracic back pain (ICD-10 - M54.6) [facility] [facility] Other 10-18-2023 Evaluation note* Encounter Date Diagnosis [...] index [BMI] 34.0-34.9, adult (ICD-10 - Z68.34) [employer] Other 10-13-2023 Evaluation note* Encounter Date Diagnosis Assessment Notes Treatment Notes Treatment Clinical Notes May, Simple chronic bronchitis (ICD-10 - J41.0) Continue LABA/ICS Use DIMITRI as needed for cough/wheezing. Control allergies and GERD symptoms. Weight loss May, Restrictive lung disease (ICD-10 - J98.4) Weight loss important. Avoid exposure to dust, smoke and allergens. Continue treatment for DUSTIN Refer to Engineering Project Manager for evaluation and treatment May, DUSTIN (obstructive sle ep apnea) (ICD-10 - G47.33) This patient is aware of the benefits associated with DUSTIN: With continued use, the patient reduces the risk for NE, CVA, HTN, cardiac dysrhythmias and sudden cardiac [...] continue exercise to achieve/maintain a normal BMI. [employer] Other 08-31-2023 Evaluation note* Encounter Date Diagnosis Assessment Notes Treatment Notes Treatment Clinical Notes Mar, Chronic bronchitis, simple (ICD-10 - J41.0) [employer] Other 08-30-2023 Evaluation note* Encounter Date Diagnosis Assessment Notes Treatment Notes Treatment Clinical Notes Mar, Chronic bronchitis, simple (ICD-10 - J41.0) [facility] Other 08-30-2023 Evaluation note* Encounter Date Diagnosis Assessment Notes Treatment Notes Treatment Clinical Notes Mar, Chronic bronchitis, simple (ICD-10 - J41.0) Mar, DOUGLAS (dyspnea on exertion) (ICD-10 - R06.09) [employer] Other 08-28-2023 Evaluation note* Encounter Date Diagnosis Assessment Notes Treatment Notes Treatment Clinical Notes Mar, Pulmonary nodule (ICD-10 - R91.1) [employer] Other 08-22-2023 Evaluation note* Encounter Date Diagnosis Assessment Notes Treatment Notes Treatment Clinical Notes Mar, Pulmonary nodule (ICD-10 - R91.1) [employer] Other 08-22-2023 Evaluation note* Encounter Date Diagnosis [...] [BMI ] 34.0-34.9, adult (ICD-10 - Z68.34) [employer] Other 08-17-2023 Evaluation note* Encounter Date Diagnosis Assessment Notes Treatment Notes Treatment Clinical Notes Mar, Acute bilateral low back pain without sciatica (ICD-10 - M54.50) [employer] Other 08-08-2023 Evaluation note* Encounter Date Diagnosis [...] 3 mo as needed. Continue weight loss [employer] Other 04-09-2023 Evaluation note* Encounter Date Diagnosis Assessment Notes Treatment Notes Treatment Clinical Notes Nov, Obstructive sleep apnea (adult) (pediatric) (ICD-10 - G47.33) AHI 34, CPAP14, [employer] Other 04-06-2023 Evaluation note* Encounter Date Diagnosis [...] use, the patient reduces the risk for NE, CVA, HTN, cardiac dysrhythmias and sudden cardiac [...] High risk medication use (ICD-10 - Z79.899) [employer] Other 03-13-2023 Evaluation note* Encounter Date Diagnosis Assessment Notes Treatment Notes Treatment Clinical Notes Oct, Acute non-recurrent maxillary sinusitis (ICD-10 - J01.00) Instructed to use Flonase NS for congestion, Tessalon for cough, Tylenol for pain and fever. Oct, Acute cough (ICD-10 - R05.1) Head upright, push fluids and Tessalon perles [employer] Other 02-28-2023 Evaluation note* Encounter Date Diagnosis Assessment Notes Treatment Notes Treatment Clinical Notes Sep, Pure hypercholestero lemia (ICD-10 - E78.00) [employer] Other Evaluation noteNo InformationNort [employer] Other Evaluation noteNo assessment information available [facility] Work Phone: [facility] general Narrative - Reported* Type Description Date Medical History Essential hypertension Medical History ASHD (arteriosclerotic heart dis ease) Medical History Chronic venous insufficiency Medical History Chronic bronchitis, simple Medical History High cholesterol Medical History Lumbar spondylosis Medical History Obesity (BMI 30-39.9) Medical History Obstructive sleep apnea (adult) (pediatric) [employer] Other [facility] general Narrative - Reported* Type Description Date [...] COLONSCOPY 2018 Hospitalization History SEE SURGICAL HX [employer] Other [facility] general Narrative - Reported* Type Description Date [...] COLONSCOPY 2018 Hospitalization History SEE SURGICAL HX [employer] Other Hiszom[facility] general Narrative - Reported* Type Description Date [...] COLONSCOPY 2018 Hospitalization History SEE SURGICAL HX [employer] Other Reason for referral (narrative)* Reason Referral for COPD an d RLD Diagnosis 1 Restrictive lung dis ease (J98.4) Diagnosis 2 Chronic bronchitis, simple (J41.0) Diagnosis 3 Pulmonary nodule (R9 1.1) Diagnosis 4 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 Obesity may contribute to respiratory complaints. Clinical Notes Labs, CT, PFT [employer] Other Reason for referral (narrative)* Reason Referral for persist ent thoracolumbar spine pain Diagnosis 1 Acute bilateral thor acic back pain (M54.6) Diagnosis 2 Lumbar spondylosis ( M47.816) Diagnosis 3 Age-related osteopor osis without current pathological fracture (M81.0) Referral Organization [facility] Endocyte karin Referring Provider First Name Edwin Referring Provider Last Name Marques Referring Provider Specialty Internal Co astrid Referred Organization [facility] Referred Provider Freddie Cotton Referred Address [address] [place], [place],[address] Referred Provider Specialty Pain Medicin e Referral Priority Routine General Notes Patient w/ known deg enerative arthritis of the spine w/ persistent moderate to severe thoracolumbar spine pain w/ paraspinal muscle spasms. Completed PT w/ some temporary improvement. Stretching, Tylenol and Tramadol helping w/ the pain. Refer for alternative treatment for persistent back pain. [employer] Other Summary Purpose Family History No Family History Records FoundNo Family History Records FoundNo Family History Records FoundNo Family History Records Found Advance Directives Advance Directive Response Recorded Date/ Time Advance Directives No April 11:03am Chief Complaint and Reason for Visit Chief Complaint J41.0 R06.09 Additional Source Comments REASON FOR VISIT (unrecogniz ed section and content) Medication QuestionCongestio n [phone] ATBwellnessNo InformationCPAP Equipment?4 month follow upBack SpasmsNo InformationXR resultsreferral for PTNo InformationNo InformationNo InformationCT resultsDifferent InhalerPFT resultstesting resultsback painMedicationNo InformationDexa [phone] cold/sore throatNo Information4 month Follow upHR-AtenololUpdateNo Information INFORMATION SOURCE (unrecogn ized section and content) DATE CREATED AUTHOR 01/01/2023 [facility] DATE CREATED AUTHOR AUTHOR'S ORGANIZ ATION 05/28/2023 [facility] DATE CREATED AUTHOR AUTHOR'S ORGANIZ ATION 08/05/2023 [facility] DATE CREATED AUTHOR AUTHOR'S ORGANIZ ATION 09/20/2023 [facility] [employer] Care Teams (unrecognized sec tion and content) Team Status: Active Member Role Status Dates Edwin Mohan DO Primary Care Provider Active Team Status: Inactive Member Role Status Dates Edwin Mohan DO Primary Care Provider, Attending Pr arnoldo [...] BE BASED ON THE PRIMARY CLINICAL RECORDS. [employer] provides no warranty or guarantee of the accuracy or completeness of information in this document.
--- NOTE | 2024-01-16 15:37 | ECG_ITS ---
[facility] Test Date: 2024-01-16 Pat Name: MARIA ELENA ALLEN Department: Room: - Gender: Female Appeals Specialist: : [id number] Requested By: ANTOINE IZQUIERDO Order Number: [id number] Reading MD: ANTOINE IZQUIERDO Measurements Intervals [place] Rate: 60 P: 58 VA: 194 QRS: 30 QRSD: 88 T: 46 QT: 392 QTc: 393 Interpretive Statements 1100 Sinus rhythm 9110 normal ECG Compared to ECG 12/28/2023 16:02:01 Myocardial infarct finding no longer present ST (T wave) deviation no longer present Electronically Signed On 01-17-2024 8:52:50 EDT by ANTOINE IZQUIERDO
[2024-01-16 16:31] LABS: Basophils Percent Auto 0.3 % (0.2-2.0); Eosinophils Absolute Auto 0.2 10^3/uL (0.0-0.7); Hematocrit 40.5 % (36.0-48.0); Hemoglobin 13.2 g/dL (12.0-16.0); Immature Granulocytes Abs Auto 0.01 10^3/uL (0.00-0.03); Immature Granulocytes Pct Auto 0.1 % (0.0-0.5); Lymphocytes Absolute Auto 2.4 10^3/uL (1.2-3.8); Lymphocytes Percent Auto 26.4 % (20.5-60.0); Mean Corpuscular HGB Conc 32.6 g/dL (29.9-35.2); Mean Corpuscular Hemoglobin 29.9 pg (26.7-34.0); Mean Corpuscular Volume 91.6 fL (81.0-99.0); Monocytes Absolute Auto 0.5 10^3/uL (0.3-0.8); Monocytes Percent Auto 5.6 % (1.7-12.0); Neutrophils Percent Auto 65.6 % (43.0-75.0); Platelet Count 314 10^3/uL (150-450); Red Blood Count 4.42 10^6/uL (4.20-5.40); Red Cell Distribution Width 13.5 % (11.0-15.0); White Blood Count 9.1 10^3/uL (4.0-11.0)
[2024-01-16 16:53] LABS: Alanine Aminotransferase 17 U/L (14-59); Albumin Globulin Ratio 0.9; Albumin Level 3.7 g/dL (3.4-5.0); Alkaline Phosphatase 94 U/L (46-116); Anion Gap 14.2; Aspartate Amino Transferase 18 U/L (15-37); BUN Creatinine Ratio 26.1; Bilirubin Total 0.7 mg/dL (0.2-1.0); Carbon Dioxide 23.8 mmol/L (21.0-32.0); Chloride 103 mmol/L (98-107); Estimated GFR (African America >60 (>=60); Estimated GFR (Non-African Ame >60 (>=60); Globulin 4.1 g/dL; Glucose 107 mg/dL (74-106); Sodium 137 mmol/L (136-145); Total Protein 7.8 g/dL (6.4-8.2); Troponin I High Sensitivity 5.1 pg/mL (4.0-51.3)
--- NOTE | 2024-01-16 17:06 | ED_ITS ---
HPI HPI - General Adult General Chief complaint: Weakness Stated complaint: low heart rate Time Seen by Provider: 01/16/24 15:31 Source: patient Mode of arrival: Wheelchair History of Present Illness HPI narrative: The patient is coming to the ER after she thought that she is having bradycardia because she checked her heart rate with a pulse ox and it showed up a heart rate of 60 then for 1 reading it was 40 then again it went up to 60. The patient mentioned that she was feeling little bit dizzy after coming out of the bathroom and she did strain twice because she had constipation She is denying any symptoms at the moment although did she did mention that I am feeling weird although no specific pain or weakness No nausea no vomiting no other concerns Related Data Home Medications ?Medication ?Instructions ?Recorded ?Confirmed albuterol sulfate 90 mcg/actuation 2 puff inhalation Q4H PRN 06/14/23 12/28/23 aerosol inhaler shortness of breath or wheezing aspirin 81 mg tablet,delayed 81 mg PO DAILY 06/14/23 12/28/23 release (Adult Aspirin Regimen) hydrochlorothiazide 25 mg tablet 25 mg PO DAILY 06/14/23 12/28/23 loratadine 10 mg capsule 10 mg PO DAILY PRN allergy symptoms 06/14/23 12/28/23 losartan 100 mg tablet 100 mg PO DAILY 06/14/23 12/28/23 omeprazole 40 mg capsule,delayed 40 mg PO DAILY 06/14/23 12/28/23 release tramadol 50 mg tablet 50 mg PO Q6H PRN pain 06/14/23 12/28/23 atorvastatin 20 mg tablet 20 mg PO QPM 12/28/23 12/28/23 Allergies Allergy/AdvReac Type Severity Reaction Status Date / Time cefaclor [From Ceclor] Allergy Verified 07/25/23 07:37 ciprofloxacin [From Cipro] Allergy Verified 07/25/23 07:37 Opioid HPI Opioid Management Most Recent Opioid Data: Last Pain Scale 0 12/29/23 00:32 Review of Systems ROS Status of ROS 10 or more systems reviewed and unremark able except as noted in history and below [facility] Medical History (Updated 01/16/24 @ 18:31 by Glendy Griffith MD) DUSTIN (obstructive sleep apnea) ?G47.33 - Obstructive sleep apnea (adult) (pediatric) (ICD-10) Osteoarthritis of knees, bilateral ?M17.0 - Bilateral primary osteoarthritis of knee (ICD-10) Lumbago ?M54.50 - Low back pain, unspecified (ICD-10) Thoracic radiculopathy ?M54.14 - Radiculopathy, thoracic region (ICD-10) Right hip pain ?M25.551 - Pain in right hip (ICD-10) Thoracic stenosis ?M48.04 - Spinal stenosis, thoracic region (ICD-10) Effusion, left knee ?M25.462 - Effusion, left knee (ICD-10) Lumbar spondylosis ?M47.816 - Spondylosis without myelopathy or radiculopathy, lumbar region (ICD-10) High cholesterol ?E78.00 - Pure hypercholesterolemia, unspecified (ICD-10) Acid reflux ?K21.9 - Gastro-esophageal reflux disease without esophagitis (ICD-10) Hypertension ?I10 - Essential (primary) hypertension (ICD-10) Surgical History H/O: hysterectomy ?Z90.710 - Acquired absence of both cervix and uterus (ICD-10) Social History Highest level of school completed/degree received: high school graduate Do you think of yourself as: straight/heterosexual Gender Identity: female Exam Narrative Exam Narrative: Nurses notes and vital signs reviewed and patient is not hypoxic. General: Well-appearing and in no apparent distress. Skin: Warm, dry, no pallor noted. No rash. Head: Normocephalic, atraumatic. Neck: Supple, non-tender. Eye: Pupils are equal, round and EOMI. No scleral icterus. Ears, Nose, Mouth, and Throat: TM are clear, no nasal mucosal hypertrophy. Oral mucosa is moist, no posterior oropharynx erythema, uvula is mid-line Cardiovascular: Regular Rate and Rhythm without murmur, gallop or rub. Respiratory: No accessory muscle use or respiratory distress. Lungs are clear to auscultation, no wheezing, rales or rhonchi Chest Wall: no tenderness Back: No midline thoracic or lumbar vertebral tenderness. No CVA tenderness Musculoskeletal: normal ROM, no calf or popliteal tenderness, no lower extremity edema/swelling GI: Abdomen is soft, non-distended. Normal bowel sounds. No masses appreciated. No tenderness to palpation. No rebound, guarding, or rigidity noted. Neurological: A&O x4. No cranial nerve dysfunction observed. No truncal ataxia. Moves all extremities. Sensation intact. Psychiatric: Cooperative and interactive. Normal mood and affect. Constitutional Vital Signs, click to edit/add: Last Vital Signs Temp 97.3 F L 01/16/24 15:32 Pulse 64 01/16/24 18:20 Resp 21 H 01/16/24 18:20 BP 147/83 H 01/16/24 15:35 Pulse Ox 97 01/16/24 18:20 O2 Del Method Room Air 01/16/24 15:32 Course Vital Signs Vital signs: Vital Signs Temperature 97.3 F L 01/16/24 15:32 Pulse Rate 63 01/16/24 15:32 Respiratory Rate 16 01/16/24 15:32 Blood Pressure 147/83 H 01/16/24 15:32 Pulse Oximetry 95 01/16/24 15:32 Oxygen Delivery Method Room Air 01/16/24 15:32 Temperature 97.3 F L 01/16/24 15:32 Pulse Rate 64 01/16/24 18:20 Respiratory Rate 21 H 01/16/24 18:20 Blood Pressure 147/83 H 01/16/24 15:35 Pulse Oximetry 97 01/16/24 18:20 Oxygen Delivery Method Room Air 01/16/24 15:32 Medical Decision Making [facility] Narrative Medical decision making narrative: The patient examination was benign in the ER she was ambulating with no difficulty she did have a EKG in the ER EKG was showing sinus rhythm with a heart rate of [address] elevation or depression The ultrasound she was monitored in the ER that she was only in the 60s and not below the Patient CBC chemistry showed no acute pathology and her potassium was 4 and it was noted that she recently was admitted for hypokalemia and that what she was worried about Repeated troponin twice showed no acute pathology The patient was offered IV fluids but she wanted to go home and hydrate p.o. The patient mentioned that she will see her primary care doctor on Tuesday to get the blood workup done and I did explain to her that she need to have a plan for the potassium to have potassium p.o. forever unless needed The patient is to follow up with primary care physician in next 2-3 days or to return to the emergency department should any of the signs or symptoms worsen or new symptoms develop. The patient agrees with the following Diagnosis and Treatment plan and the patient will be discharged home. Lab Data Labs: Lab Results 01/16/24 01/16/24 Range/Units 16:20 17:27 WBC 9.1 (4.0-11.0) 10^3/uL RBC 4.42 (4.20-5.40) 10^6/uL Hgb 13.2 (12.0-16.0) g/dL Hct 40.5 (36.0-48.0) % MCV 91.6 (81.0-99.0) fL MCH 29.9 (26.7-34.0) pg MCHC 32.6 (29.9-35.2) g/dL RDW 13.5 (11.0-15.0) % Plt Count 314 (150-450) 10^3/uL MPV 10.0 (9.5-13.5) fL Neut % (Auto) 65.6 (43.0-75.0) % Lymph % (Auto) 26.4 (20.5-60.0) % [place] % (Auto) 5.6 (1.7-12.0) % Eos % (Auto) 2.0 (0.9-7.0) % Baso % (Auto) 0.3 (0.2-2.0) % Neut # (Auto) 6.0 (1.4-6.5) 10^3/uL Lymph # (Auto) 2.4 (1.2-3.8) 10^3/uL [place] # (Auto) 0.5 (0.3-0.8) 10^3/uL Eos # (Auto) 0.2 (0.0-0.7) 10^3/uL Baso # (Auto) 0.0 (0.0-0.1) 10^3/uL Abs Immat Gran (auto) 0.01 (0.00-0.03) 10^3/uL Imm/Tot Granulo (auto) 0.1 (0.0-0.5) % Sodium 137 (136-145) mmol/L Potassium 4.0 (3.5-5.1) mmol/L Chloride 103 (98-107) mmol/L Carbon Dioxide 23.8 (21.0-32.0) mmol/L Anion Gap 14.2 BUN 18.0 (7.0-18.0) mg/dL Creatinine 0.69 (0.55-1.02) mg/dL Est GFR ( Amer) >60 (>=60) Est GFR (Non-Af Amer) >60 (>=60) BUN/Creatinine Ratio 26.1 Glucose 107 H (74-106) mg/dL Calcium 10.0 (8.5-10.1) mg/dL Magnesium 2.0 (1.8-2.4) mg/dL Total Bilirubin 0.7 (0.2-1.0) mg/dL AST 18 (15-37) U/L ALT 17 (14-59) U/L Alkaline Phosphatase 94 (46-116) U/L Troponin I High Sens 5.1 4.5 (4.0-51.3) pg/mL Total Protein 7.8 (6.4-8.2) g/dL Albumin 3.7 (3.4-5.0) g/dL Globulin 4.1 g/dL Albumin/Globulin Ratio 0.9 Discharge Plan Discharge Stand Alone Forms: Portal Instructions Chief Complaint: Weakness Clinical Impression: Dizziness Patient Disposition: Home, Self-Care Time of Disposition Decision: 18:30 Condition: Good Prescriptions / Home Meds: No Action omeprazole 40 mg capsule,delayed release(DR/EC) 40 mg PO DAILY hydrochlorothiazide 25 mg tablet 25 mg PO DAILY aspirin [Adult Aspirin Regimen] 81 mg tablet,delayed release (DR/EC) 81 mg PO DAILY loratadine 10 mg capsule 10 mg PO DAILY PRN (Reason: allergy symptoms) losartan 100 mg tablet 100 mg PO DAILY albuterol sulfate 90 mcg/actuation HFA aerosol inhaler 2 puff INHALATION Q4H PRN (Reason: shortness of breath or wheezing) tramadol 50 mg tablet 50 mg PO Q6H PRN (Reason: pain) atorvastatin 20 mg tablet 20 mg PO QPM Print Language: Montenegrin Instructions: Dizziness (ED) Referrals: Edwin Mohan DO [Primary Care Provider] - 1 week
[2024-01-16 18:21] LABS: Troponin I High Sensitivity 4.5 pg/mL (4.0-51.3)
== END 2024-01-16 18:35 | disposition home or self-care (01) ==
PROVIDERS: Emergency Provider Emergency Medicine; PCP Internal Medicine
DX: R42 Dizziness and giddiness (principal)
CPT/HCPCS: 36415; 80053; 83735; 84484; 85025; 93005; 99284

== ENCOUNTER 2024-01-19 08:10 | Outpatient (OUT) | payer MEDICARE, SELFPAY ==
--- OUTSIDE RECORDS SUMMARY | 2024-01-18 12:49 | XMS_ITS | CCD ---
Author Organization [facility] Care Team Providers Care Cutter Grind Tool Technician Name Role Phone Edwin Izquierdo Unavailable MARQUES, [...] Luna Attending Unavailable ANGEL CAMPOS Attending Unavailable ANGEL CAMPOS Attending Unavailable YANY MARTINEZ Attending Unavailable Allergies Allergy Classification Reported Allergen(s) Allergy Type Date of Onset Reaction(s) Facility (7 sources) Cefaclor; Translations: [Ceclor] Drug Allergy Unknown [facility] Repository (20 sources) Ciprofloxacin Drug Allergy Unknown [facility] Other (1 source) Ciprofloxacin Drug Allergy [facility] Repository (1 source) Robafen DM Cough-Chest Congest Drug allergy (disorder) [facility] Repository (20 sources) Ceclor *CEPHALOSPORINS* Propensity to adverse reactions Unknown [facility] Other Medications Current Medications Medication Drug Class(es) Dates Sig (Normalized) Sig (Original) [id number] 200 actuat albuterol 0.09 mg/actuat metered dose [...] Coronary arteriosclerosis; Translations: [Atherosclerotic heart disease of [place] coronary artery without angina pectoris] Chronic Diabetes [...] current use of drug therapy; Translations: [Other skilled nursing (current) drug therapy] Episodic Other diseases of [...] Episodic Other aftercare (2 sources) Other terminal operator (current) drug therapy; Translations: [OTH USP CURRENT DRUG THERAPY] Onset: 03-29-2022 Episodic Other [...] : DR EDWIN IZQUIERDO D.O. Admission #: [id number] Family : Order #: [id number] CLICK HERE TO VIEW EXAM RADIOLOGY REPORT [...] Treatments None Family Cancers None LOCATION: [facility] BREAST COMPOSITION: Scattered areas fibroglandular density. FINDINGS: [...] MD on 05/26/2022 at 07:48 Normal [facility] CBC AUTO DIFFon 03-27-2022 BASO # 0.0 103/ul Normal 0.0-0.1 [facility] Comment on above: Performed By: #### C BC #### [facility] [address] [address] [address] Eduardo Segura Basophils/100 WBC (Bld) 0.3 % Normal 0.2-2.0 [facility] Comment on above: Performed By: #### C BC #### [facility] [address] [place] [address] Dr. Eduardo Segura EO # 0.3 103/ul Normal 0.0-0.7 [facility] Comment on above: Performed By: #### C BC #### [facility] [address] [place] [address] Dr. Eduardo Segura Eosinophils/100 WBC (Bld) 4.3 % Normal 0.9-7.0 [facility] Comment on above: Performed By: #### C BC #### [facility] [address] [place] [address] Dr. Eduardo Segura Erythrocyte distribution width (RBC) [Ratio] 13.7 % Normal 11.0-15.0 [facility] Comment on above: Performed By: #### C BC #### [facility] [address] [place] [address] Dr. Eduardo Segura Hematocrit (Bld) [Volume fraction] 42.6 % Normal 36.0-48.0 [facility] Comment on above: Performed By: #### C BC #### [facility] [address] [place] [address] Dr. Eduardo Segura Hemoglobin (Bld) [Mass/Vol] 14.1 g/dL Normal 12.0-16.0 [facility] Comment on above: Performed By: #### C BC #### [facility] [address] [place] [address] Dr. Eduardo Segura IG # 0.02 10e3/ul Normal 0.00-0.03 [facility] Comment on above: Performed By: #### C BC #### [facility] [address] [place] [address] Dr. Eduardo Segura IG % 0.3 % Normal 0.0-0.5 [facility] Comment on above: Performed By: #### C BC #### [facility] [address] [place] [address] Dr. Eduardo Segura LYMPH # 2.3 103/ul Normal 1.2-3.8 [facility] Comment on above: Performed By: #### C BC #### [facility] [address] [place] [address] Dr. Eduardo Segura Lymphocytes/100 WBC (Bld) 31.9 % Normal 20.5-60.0 [facility] Comment on above: Performed By: #### C BC #### [facility] [address] [place] [address] Dr. Eduardo Segura MANUAL DIFF REQ NO Normal [facility] Comment on above: Performed By: #### C BC #### [facility] [address] [place] [address] Dr. Eduardo Segura MCH (RBC) [Entitic mass] 31.1 pg Normal 26.7-34.0 [facility] Comment on above: Performed By: #### C BC #### [facility] [address] [place] [address] Dr. Eduardo Segura MCHC (RBC) [Mass/Vol] 33.1 g/dL Normal 29.9-35.2 [facility] Comment on above: Performed By: #### C BC #### [facility] [address] [place] [address] Dr. Eduardo Segura MCV (RBC) [Entitic vol] 94.0 fL Normal 81.0-99.0 [facility] Comment on above: Performed By: #### C BC #### [facility] [address] [place] [address] Dr. Eduardo Segura MONO # 0.6 103/ul Normal 0.3-0.8 [facility] Comment on above: Performed By: #### C BC #### [facility] [address] [place] [address] Dr. Eduardo Segura Monocytes/100 WBC (Bld) 7.7 % Normal 1.7-12.0 [facility] Comment on above: Performed By: #### C BC #### [facility] [address] [place] [address] Dr. Eduardo Segura NEUT # 4.0 103/ul Normal 1.4-6.5 [facility] Comment on above: Performed By: #### C BC #### [facility] [address] [address] [address] Eduardo Segura Neutrophils/100 WBC (Bld) 55.5 % Normal 43.0-75.0 [facility] Comment on above: Performed By: #### C BC #### [facility] [address] [place] [address] Dr. Eduardo Segura Platelet mean volume (Bld) [Entitic vol] 10.2 fL Normal 9.5-13.5 [facility] Comment on above: Performed By: #### C BC #### [facility] [address] [place] [address] Dr. Eduardo Segura PLT 286 103/ul Normal 150-450 [facility] Comment on above: Performed By: #### C BC #### [facility] [address] [place] [address] Dr. Eduardo Segura RBC 4.53 106/ul Normal 4.20-5.40 [facility] Comment on above: Performed By: #### C BC #### [facility] [address] [place] [address] Dr. Eduardo Segura WBC 7.2 103/ul Normal 4.0-11.0 [facility] Comment on above: Performed By: #### C BC #### [facility] [address] [place] [address] Dr. Eduardo Segura GLYCOHEMOGLOBIN A1Con 2021 ADA RECOMMENDATION SEE BELOW Normal [facility] Comment on above: Result Comment: ADA RECOMMENDED LIMIT 4.0 - 6.0 ADA THERAPEUTIC TARGET < 7.0 ACTION SUGGESTED > 7.0 Performed By: #### A 1C #### [facility] [address] [place] [address] Dr. Eduardo Segura Glucose [Mass/Vol] 134 mg/dL Normal [facility] Comment on above: Performed By: #### A 1C #### [facility] [address] [place] [address] Dr. Eduardo Segura HbA1c (Bld) [Mass fraction] 6.3 % Critically high 4.5-6.2 [facility] Comment on above: Performed By: #### A 1C #### [facility] [address] [address] [address] Eduardo Segura LIPID PROFILEon 03-27-2022 CHOL-HDL RATIO NORM SEE BELOW Normal [facility] Comment on above: Result Comment: 3.3 - 4.4 LOW RISK 4.4 - 7.1 AVERAGE RISK 7.1 - 11.0 MODERATE RISK >11.0 HIGH RISK Performed By: #### B MP, LIPID, ALT #### [facility] [address] [address] [address] Eduardo Segura Cholesterol [Mass/Vol] 154 mg/dL Normal <=200 [facility] Comment on above: Performed By: #### B MP, LIPID, ALT #### [facility] [address] [address] [address] Eduardo Segura Cholesterol in HDL [Mass/Vol] 60 mg/dL Normal 40-60 [facility] Comment on above: Performed By: #### B MP, LIPID, ALT #### [facility] [address] [address] [address] Eduardo Segura Cholesterol in LDL [Mass/Vol] 75.4 mg/dL Normal [facility] Comment on above: Performed By: #### B MP, LIPID, ALT #### [facility] [address] [address] [address] Eduardo Segura Cholesterol.total/Cho lesterol in HDL [Mass ratio] 2.6 {ratio} Normal [facility] Comment on above: Performed By: #### B MP, LIPID, ALT #### [facility] [address] [address] [address] Eduardo Segura HDL NORMAL > or = 60 mg/dl - LOW CARDIOVASCULAR RISK <40 mg/dl - HIGH CARDIOVASCULAR RISK Normal [facility] Comment on above: Performed By: #### B MP, LIPID, ALT #### [facility] [address] [address] [address] Eduardo Segura LDL CALC NORMAL SEE BELOW Normal [facility] Comment on above: Result Comment: <100 mg/dl OPTIMAL 100 - 129 mg/dl NEAR OR ABOVE OPTIMAL 130 - 159 mg/dl BORDERLINE HIGH 160 - 189 mg/dl HIGH >190 mg/dl VERY HIGH Performed By: #### B MP, LIPID, ALT #### [facility] [address] [place] [address] Dr. Eduardo Segura Triglyceride [Mass/Vol] 93 mg/dL Normal <=150 [facility] Comment on above: Performed By: #### B MP, LIPID, ALT #### [facility] [address] [place] [address] Dr. Eduardo Segura VLDL CALC 18.6 mg/dL Normal [facility] Comment on above: Performed By: #### B MP, LIPID, ALT #### [facility] [address] [place] [address] Dr. Eduardo Segura PROF CHEM 8 (BAS METB)on Anion gap [Moles/Vol] 15.0 mmol/L Normal [facility] Comment on above: Performed By: #### B MP, LIPID, ALT #### [facility] [address] [place] [address] Dr. Eduardo Segura Calcium [Mass/Vol] 9.8 mg/dL Normal 8.5-10.1 [facility] Comment on above: Performed By: #### B MP, LIPID, ALT #### [facility] [address] [place] [address] Dr. Eduardo Segura Chloride [Moles/Vol] 105 mmol/L Normal 98-107 [facility] Comment on above: Performed By: #### B MP, LIPID, ALT #### [facility] [address] [place] [address] Dr. Eduardo Segura CO2 [Moles/Vol] 25.2 mmol/L Normal 21.0-32.0 [facility] Comment on above: Performed By: #### B MP, LIPID, ALT #### [facility] [address] [place] [address] Dr. Eduardo Segura Creatinine [Mass/Vol] 0.77 mg/dL Normal 0.55-1.02 [facility] Comment on above: Performed By: #### B MP, LIPID, ALT #### [facility] [address] [place] [address] Dr. Eduardo Segura EGFR-AF MALAWIAN >60 Normal >=60 [facility] Comment on above: Performed By: #### B MP, LIPID, ALT #### [facility] [address] [place] [address] Dr. Eduardo Segura EGFR-NON AF MALAWIAN >60 Normal >=60 [facility] Comment on above: Performed By: #### B MP, LIPID, ALT #### [facility] [address] [place] [address] Dr. Eduardo Segura Glucose [Mass/Vol] 142 mg/dL Critically high 74-106 [facility] Comment on above: Performed By: #### B MP, LIPID, ALT #### [facility] [address] [place] [address] Dr. Eduardo Segura Potassium [Moles/Vol] 4.2 mmol/L Normal 3.5-5.1 [facility] Comment on above: Performed By: #### B MP, LIPID, ALT #### [facility] [address] [place] [address] Dr. Eduardo Segura Sodium [Moles/Vol] 141 mmol/L Normal 136-145 [facility] Comment on above: Performed By: #### B MP, LIPID, ALT #### [facility] [address] [place] [address] Dr. Eduardo Segura Urea nitrogen [Mass/Vol] 17.0 mg/dL Normal 7.0-18.0 [facility] Comment on above: Performed By: #### B MP, LIPID, ALT #### [facility] [address] [place] [address] Dr. Eduardo Segura Urea nitrogen/Creatinine [Mass ratio] 22.1 mg/mg Normal [facility] Comment on above: Performed By: #### B MP, LIPID, ALT #### [facility] [address] [place] [address] Dr. Eduardo Segura [facility] 03-27-2022 ALT [Catalytic activity/Vol] 20 U/L Normal 14-59 [facility] Comment on above: Performed By: #### B MP, LIPID, ALT #### [facility] [address] [place] [address] Dr. Eduardo Segura Vital Signs Date Time Vital Sign Value Performing Clinician Facility 08-09-2023 15:00-0500 Body height 165.1 cm Edwin Ball Other [facility] Other 08-09-2023 15:00-0500 Body mass index (BMI) [Ratio] 32.88 kg/m2 Edwin Ball Other [facility] Other 08-09-2023 15:00-0500 Body weight 89.63 kg Edwin Ball Other [facility] Other 08-09-2023 15:00-0500 Diastolic blood pressure 94 mm[Hg] Edwin Ball Other [facility] Other 08-09-2023 15:00-0500 Respiratory rate 12 /min Edwin Ball Other [facility] Other 08-09-2023 15:00-0500 Systolic blood pressure 134 mm[Hg] Edwin Ball Other [facility] Other 06-08-2023 14:15-0400 Body height 165.1 cm Edwin Ball Other [facility] Other 06-08-2023 14:15-0400 Body mass index (BMI) [Ratio] 33.71 kg/m2 Edwin Ball Other [facility] Other 06-08-2023 14:15-0400 Body weight 91.9 kg Edwin Ball Other [facility] Other 06-08-2023 14:15-0400 Diastolic blood pressure 82 mm[Hg] Edwin Ball Other [facility] Other 06-08-2023 14:15-0400 Respiratory rate 12 /min Edwin Ball Other [facility] Other 06-08-2023 14:15-0400 Systolic blood pressure 128 mm[Hg] Edwni Ball Other [facility] Other 06-03-2023 11:30-0400 Body height 165.1 cm Edwin Ball Other [facility] Other 06-03-2023 11:30-0400 Body mass index (BMI) [Ratio] 33.71 kg/m2 Edwin Ball Other [facility] Other 06-03-2023 11:30-0400 Body weight 91.9 kg Edwin Ball Other [facility] Other 06-03-2023 11:30-0400 Diastolic blood pressure 80 mm[Hg] Edwin Ball Other [facility] Other 06-03-2023 11:30-0400 Respiratory rate 12 /min Edwin Ball Other [facility] Other 06-03-2023 11:30-0400 Systolic blood pressure 130 mm[Hg] Edwin Ball Other [facility] Other 04-12-2023 10:45-0400 Body height 165.1 cm Edwin Ball Other [facility] Other 04-12-2023 10:45-0400 Body mass index (BMI) [Ratio] 34.61 kg/m2 Edwin Ball Other [facility] Other 04-12-2023 10:45-0400 Body weight 94.35 kg Edwin Ball Other [facility] Other 04-12-2023 10:45-0400 Diastolic blood pressure 74 mm[Hg] Edwin Ball Other [facility] Other 04-12-2023 10:45-0400 Respiratory rate 20 /min Edwin Ball Other [facility] Other 04-12-2023 10:45-0400 Systolic blood pressure 116 mm[Hg] Edwin Ball Other [facility] Other 03-29-2023 10:30-0400 Body height 165.1 cm Edwin Ball Other [facility] Other 03-29-2023 10:30-0400 Body mass index (BMI) [Ratio] 34.48 kg/m2 Edwin Ball Other [facility] Other 03-29-2023 10:30-0400 Body weight 93.99 kg Edwin Ball Other [facility] Other 03-29-2023 10:30-0400 Diastolic blood pressure 70 mm[Hg] Edwin Ball Other [facility] Other 03-29-2023 10:30-0400 Respiratory rate 12 /min Edwin Ball Other [facility] Other 03-29-2023 10:30-0400 Systolic blood pressure 158 mm[Hg] Edwin Ball Other [facility] Other 11-25-2022 11:30-0400 Body height 165.1 cm Edwin Ball Other [facility] Other 11-25-2022 11:30-0400 Body mass index (BMI) [Ratio] 35.61 kg/m2 Edwin Ball Other [facility] Other 11-25-2022 11:30-0400 Body weight 97.07 kg Edwin Ball Other [facility] Other 11-25-2022 11:30-0400 Diastolic blood pressure 76 mm[Hg] Edwin Ball Other [facility] Other 11-25-2022 11:30-0400 Respiratory rate 12 /min Edwin Ball Other [facility] Other 11-25-2022 11:30-0400 Systolic blood pressure 126 mm[Hg] Edwin Ball Other [facility] Other Encounters Encounter Date Encounter Type Care Provider Facility Start: 01-17-2024 End: 01-17-2024 ambulatory ANGEL CAMPOS Not Available Start: 10-14-2023 End: 10-14-2023 ambulatory Edwin Ball Other [facility] Other Start: 10-14-2023 Telephone encounter Edwin Ball [facility] Start: 09-19-2023 End: 09-19-2023 ambulatory ANGEL CAMPOS Not Available Start: 08-12-2023 End: 08-12-2023 ambulatory Edwin Ball Other [facility] Other Start: 08-12-2023 Telephone encounter Edwin Ball [facility] Start: 08-11-2023 End: 08-11-2023 ambulatory Edwin Ball Other [facility] Other Start: 08-11-2023 Telephone encounter Edwin Ball [facility] Start: 08-09-2023 End: 08-09-2023 ambulatory Edwin Ball Other [facility] Other Start: 08-09-2023 Office outpatient vi sit 25 minutes Edwin Ball [facility] Start: 08-04-2023 End: 08-04-2023 ambulatory Edwin Ball Other [facility] Other Start: 08-04-2023 Telephone encounter Edwin Izquierdo [facility] Start: 08-02-2023 End: 08-02-2023 ambulatory YANYVALDEMAR MARTINEZ Not Available Start: 07-25-2023 End: 07-26-2023 ambulatory Raphael Parisi MD Facility:[facility] Start: 07-19-2023 End: 07-19-2023 ambulatory Edwin Izquierdo Other [facility] Other Start: 07-19-2023 Office outpatient vi sit 15 minutes Edwin Izquierdo [facility] Start: 06-20-2023 End: 06-21-2023 ambulatory Raphael Parisi MD Facility:[facility] Start: 06-16-2023 End: 06-16-2023 ambulatory Edwin Izquierdo Other [facility] Other Start: 06-16-2023 Telephone encounter Edwin Izquierdo [facility] Start: 06-15-2023 End: 06-15-2023 ambulatory Edwin Izquierdo Other [facility] Other Start: 06-15-2023 Telephone encounter Edwin Izquierdo [facility] Start: 06-13-2023 End: 06-14-2023 ambulatory Raphael Parisi MD Facility:[facility] Start: 06-09-2023 End: 06-09-2023 ambulatory Edwin Izquierdo Other [facility] Other Start: 06-09-2023 Telephone encounter Edwin Izquierdo [facility] Start: 06-08-2023 End: 06-08-2023 ambulatory Edwin Ball Other [facility] Other Start: 06-08-2023 Office outpatient vi sit 15 minutes Edwin Izquierdo [facility] Start: 06-03-2023 End: 06-03-2023 ambulatory Edwin Ball Other [facility] Other Start: 06-03-2023 Office outpatient vi sit 25 minutes Edwin Ball [facility] Start: 05-25-2023 End: 05-25-2023 ambulatory Edwin Ball Other [facility] Other Start: 05-25-2023 Telephone encounter Edwin Ball [facility] Start: 05-23-2023 End: 05-23-2023 ambulatory Edwin Ball Facility:[facility] Start: 05-23-2023 End: 05-23-2023 ambulatory DO Edwin Ball Work Phone: [facility] Work Phone: Start: 05-23-2023 End: 05-23-2023 Patient encounter procedure DO Edwin Ball Work Phone: [facility] Work Phone: Start: 04-21-2023 End: 04-21-2023 ambulatory Edwin Ball Other [facility] Other Start: 04-21-2023 Telephone encounter Edwin Ball [facility] Start: 04-20-2023 End: 04-20-2023 ambulatory Edwin Ball Other [facility] Other Start: 04-20-2023 Telephone encounter Edwin Ball [facility] Start: 04-18-2023 End: 04-18-2023 ambulatory Edwin Ball Other [facility] Other Start: 04-18-2023 Telephone encounter Edwin Ball [facility] Start: 04-12-2023 End: 04-12-2023 ambulatory Edwin Ball Other [facility] Other Start: 04-12-2023 Office outpatient vi sit 15 minutes Edwin Ball [facility] Start: 04-12-2023 Telephone encounter Edwin Ball [facility] Start: 04-07-2023 End: 04-07-2023 ambulatory Edwin Ball Other [facility] Other Start: 04-07-2023 Telephone encounter Edwin Izquierdo [facility] Start: 03-29-2023 End: 03-29-2023 ambulatory Edwin Izquierdo Other [facility] Other Start: 03-29-2023 Office outpatient vi sit 15 minutes Edwin Ball [facility] Start: 01-08-[address] EDWIN IZQUIERDO Facili ty:[facility] Start: 11-30-2022 End: 11-30-2022 ambulatory Edwin Izquierdo Other [facility] Other Start: 11-30-2022 Telephone encounter Edwin Izquierdo [facility] Start: 11-28-2022 End: 11-28-2022 ambulatory Edwin Izquierdo Other [facility] Other Start: 11-28-2022 Telephone encounter Edwin Izquierdo [facility] Start: 11-25-2022 End: 11-25-2022 ambulatory Edwin Izquierdo Other [facility] Other Start: 11-25-2022 Patient encounter procedure Edwin Izquierdo [facility] Start: 11-08-2022 End: 11-08-2022 ambulatory Edwin Izquierdo Other [facility] Other Start: 11-08-2022 Telephone encounter Edwin Izquierdo [facility] Start: 11-01-2022 End: 11-01-2022 ambulatory Edwin Izquierdo Other [facility] Other Start: 11-01-2022 Office outpatient vi sit 15 minutes Edwin Ball [facility] Start: 10-19-2022 End: 10-19-2022 ambulatory Edwin Izquierdo Other [facility] Other Start: 10-19-2022 Telephone encounter Edwin Ball [facility] Start: 07-22-2022 Adult health examination Edwin Izquierdo Other [facility] Other Start: 05-25-2022 End: 05-26-[address] EDWIN IZQUIERDO Facility:[facility] Start: 03-27-2022 End: 03-28-[address] EDWIN IZQUIERDO Facility:[facility] Procedures Date Procedure Procedure Detail Performing Clinician Start: 05-01-2018 Screening for malign ant neoplasm of colon Edwin Marques Other Start: 08-01-2017 Screening for osteoporosis Edwin Izquierdo Other Depression screening Ana Izquierdo Other Screening for malign ant neoplasm of breast Edwin Marques Other Screening for malign ant neoplasm of skin Edwin Izquierdo Other Immunizations Immunization Date Immunization Notes Care Provider Fa lise 07-03-2022 influenza, high dose seasonal, preservative-free Edwin Izquierdo Other [facility] Other 06-23-2022 influenza, high dose seasonal, preservative-free Edwin Izquierdo Other [facility] Other 05-18-2022 COVID-19 Pfizer (bivalent) Edwin Izquierdo Other [facility] Other 12-12-2021 COVID-19 Pfizer Edwin kurtz Other [facility] Other 12-12-2021 COVID-19 Vaccine Pfi zer - Documentation Purposes Only Edwin Izquierdo Other [facility] Other 07-21-2021 influenza virus vaccine, split virus (incl. purified surface antigen) Edwin Izquierdo Other [facility] Other 05-22-2021 COVID-19 Vaccine Pfi zer - Documentation Purposes Only Edwin Izquierdo Other [facility] Other 10-08-2020 COVID-19 Vaccine Pfi zer - Documentation Purposes Only Edwin Izquierdo Other [facility] Other 09-17-2020 COVID-19 Vaccine Moderna - Documentation Purposes Only Edwin Izquierdo Other [facility] Other 09-17-2020 COVID-19 Vaccine Pfi zer - Documentation Purposes Only Edwin Izquierdo Other [facility] Other 04-30-2020 influenza virus vaccine, split virus (incl. purified surface antigen) Edwin Izquierdo Other [facility] Other 05-18-2019 pneumococcal polysaccharide vaccine, 23 valent Edwin Ball Other [facility] Other 05-01-2018 pneumococcal polysaccharide vaccine, 23 valent Edwin Ball Other [employer] Other 08-02-2017 diphtheria, tetanus toxoids and acellular pertussis vaccine, unspecified formulation Edwin Izquierdo Other [employer] Other 06-05-2015 pneumococcal conjuga te vaccine, 13 valent Edwin Ball Other [employer] Other 06-04-2015 pneumococcal conjuga te vaccine, 13 valent Edwin Ball Other [employer] Other Payers Date Payer Category Payer Self-pay 2023 Private Health Insurance [id number] 2022 Medicare 2022 Private Health Insurance 1958 Medicare [id number] 2.1 [id number] 1959 Private Health Insurance [id number] 1946 Unknown [id number] 2.16.84 0.1.219019.3.579.2.593 1946 Unknown [id number] 2.16.84 0.1.039743.3.579.2.593 1946 Unknown [id number] 2.16.84 0.1.615158.3.579.2.593 1946 Unknown [id number] 2.16. 840.1.483757.3.579.2.196 1946 Unknown [id number] 2.16. 840.1.161925.3.579.2.196 1946 Unknown [id number] 2.16. 840.1.704635.3.579.2.196 1946 Unknown [id number] 2.16.84 0.1.901158.3.579.2.1259 1946 Unknown [id number] 2.16.84 0.1.960893.3.579.2.1259 1946 Unknown [id number] 2.16.840 .1.122273.3.579.2.1259 Unknown [id number] 2.16.8 40.1.858935.3.579.2.531 Social History Date Type Detail Facility Sex Assigned At [facility] Other Start: 1945 Sex Assigned At Female F [facility] Clinical Notes 10-19-2022 to 10-14-2023 Note Date & Type Note Facility 10-14-2023 Evaluation note Encounter Date Diagnosis Assessment Notes Sep, Acute bilateral thoracic back pain (ICD-10 - M54.6) [facility] Other [id number] Evaluation note* Encounter Date Diagnosis Assessment Notes [...] use, the patient reduces the risk for OR, CVA, HTN, cardiac dysrhythmias and sudden cardiac [...] smoker would recommend repeat in 12 months. [employer] Other 12-14-2023 Evaluation note* Encounter Date Diagnosis Assessment Notes Treatment Notes Treatment Clinical Notes Jul, Restrictive lung disease (ICD-10 - J98.4) [facility] [facility] Other 11-28-2023 Evaluation note* Encounter Date Diagnosis [...] Send for COVID PCR - results negative [facility] [facility] Other 10-25-2023 Evaluation note* Encounter Date Diagnosis Assessment Notes Treatment Notes Treatment Clinical Notes May, Age-related osteoporosis without current pathological fracture (ICD-10 - M81.0) [facility] [facility] Other 10-19-2023 Evaluation note* Encounter Date Diagnosis Assessment Notes Treatment Notes Treatment Clinical Notes May, Acute bilateral thoracic back pain (ICD-10 - M54.6) [facility] Other 10-18-2023 Evaluation note* Encounter Date Diagnosis [...] index [BMI] 34.0-34.9, adult (ICD-10 - Z68.34) [facility] [facility] Other 10-13-2023 Evaluation note* Encounter Date Diagnosis Assessment Notes Treatment Notes Treatment Clinical Notes May, Simple chronic bronchitis (ICD-10 - J41.0) Continue LABA/ICS Use DIMITRI as needed for cough/wheezing. Control allergies and GERD symptoms. Weight loss May, Restrictive lung disease (ICD-10 - J98.4) Weight loss important. Avoid exposure to dust, smoke and allergens. Continue treatment for DUSTIN Refer to [facility] for evaluation and treatment May, DUSTIN (obstructive sle ep apnea) (ICD-10 - G47.33) This patient is aware of the benefits associated with DUSTIN: With continued use, the patient reduces the risk for OR, CVA, HTN, cardiac dysrhythmias and sudden cardiac [...] continue exercise to achieve/maintain a normal BMI. [employer] Other 08-31-2023 Evaluation note* Encounter Date Diagnosis Assessment Notes Treatment Notes Treatment Clinical Notes Mar, Chronic bronchitis, simple (ICD-10 - J41.0) [facility] [facility] Other 08-30-2023 Evaluation note* Encounter Date Diagnosis Assessment Notes Treatment Notes Treatment Clinical Notes Mar, Chronic bronchitis, simple (ICD-10 - J41.0) [facility] Other 08-30-2023 Evaluation note* Encounter Date Diagnosis Assessment Notes Treatment Notes Treatment Clinical Notes Mar, Chronic bronchitis, simple (ICD-10 - J41.0) Mar, DOUGLAS (dyspnea on exertion) (ICD-10 - R06.09) [facility] Other 08-28-2023 Evaluation note* Encounter Date Diagnosis Assessment Notes Treatment Notes Treatment Clinical Notes Mar, Pulmonary nodule (ICD-10 - R91.1) [facility] Other 08-22-2023 Evaluation note* Encounter Date Diagnosis Assessment Notes Treatment Notes Treatment Clinical Notes Mar, Pulmonary nodule (ICD-10 - R91.1) [facility] Other 08-22-2023 Evaluation note* Encounter Date Diagnosis [...] [BMI ] 34.0-34.9, adult (ICD-10 - Z68.34) [facility] [facility] Other 08-17-2023 Evaluation note* Encounter Date Diagnosis Assessment Notes Treatment Notes Treatment Clinical Notes Mar, Acute bilateral low back pain without sciatica (ICD-10 - M54.50) [facility] Other 08-08-2023 Evaluation note* Encounter Date Diagnosis [...] 3 mo as needed. Continue weight loss [facility] [facility] Other 04-09-2023 Evaluation note* Encounter Date Diagnosis Assessment Notes Treatment Notes Treatment Clinical Notes Nov, Obstructive sleep apnea (adult) (pediatric) (ICD-10 - G47.33) AHI 34, CPAP14, [facility] [facility] Other 04-06-2023 Evaluation note* Encounter Date Diagnosis [...] use, the patient reduces the risk for OR, CVA, HTN, cardiac dysrhythmias and sudden cardiac [...] High risk medication use (ICD-10 - Z79.899) [facility] [facility] Other 03-13-2023 Evaluation note* Encounter Date Diagnosis Assessment Notes Treatment Notes Treatment Clinical Notes Oct, Acute non-recurrent maxillary sinusitis (ICD-10 - J01.00) Instructed to use Flonase NS for congestion, Tessalon for cough, Tylenol for pain and fever. Oct, Acute cough (ICD-10 - R05.1) Head upright, push fluids and Tessalon perles [employer] [facility] Other 02-28-2023 Evaluation note* Encounter Date Diagnosis Assessment Notes Treatment Notes Treatment Clinical Notes Sep, Pure hypercholestero lemia (ICD-10 - E78.00) [employer] Other Evaluation noteNo InformationNort [employer] Other Evaluation noteNo assessment information available [facility] Work Phone: [facility]ft[facility] general Narrative - Reported* Type Description Date Medical History Essential hypertension Medical History ASHD (arteriosclerotic heart dis ease) Medical History Chronic venous insufficiency Medical History Chronic bronchitis, simple Medical History High cholesterol Medical History Lumbar spondylosis Medical History Obesity (BMI 30-39.9) Medical History Obstructive sleep apnea (adult) (pediatric) [employer] Other [facility] general Narrative - Reported* Type Description Date [...] COLONSCOPY 2018 Hospitalization History SEE SURGICAL HX [facility] [facility] Other Hiswffu general Narrative - Reported* Type Description Date [...] COLONSCOPY 2018 Hospitalization History SEE SURGICAL HX [facility] [facility] Other [facility]iss[facility] general Narrative - Reported* Type Description Date [...] History TONSILLECTOMY Surgical History D&C Surgical History [facility] Surgical History CYSTOSCOPY Surgical History URETHRAL DILATION 2005 Surgical History COLONSCOPY 2018 Hospitalization History SEE SURGICAL HX [employer] Other Reason for referral (narrative)* Reason Referral for COPD an d RLD Diagnosis 1 Restrictive lung dis ease (J98.4) Diagnosis 2 Chronic bronchitis, simple (J41.0) Diagnosis 3 Pulmonary nodule (R9 1.1) Diagnosis 4 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 karin Referring Provider First Name Edwin Referring Provider Last Name Marques Referring Provider Specialty Internal Nd dicsuad Referred Organization [facility] Referred Provider Yany Martinez Referred Address ,[place], [place],[address] Referred Provider Specialty Pulmonary Di seases Referral Priority Routine General Notes Patient with hx of t obacco use and CT, PFT findings suspicious for COPD/emphysema and ILD. Obesity may contribute to respiratory complaints. Clinical Notes Labs, CT, PFT [employer] [facility] Other Reason for referral (narrative)* Reason Referral for persist ent thoracolumbar spine pain Diagnosis 1 Acute bilateral thor acic back pain (M54.6) Diagnosis 2 Lumbar spondylosis ( M47.816) Diagnosis 3 Age-related osteopor osis without current pathological fracture (M81.0) Referral Organization [facility] [employer] Referring Provider First Name Edwin Referring Provider Last Name Marques Referring Provider Specialty Internal Nd dicine Referred Organization [facility] Referred Provider Freddie Cotton Referred Address [address] [place], [place],[address] Referred Provider Specialty Pain Medicin e Referral Priority Routine General Notes Patient w/ known deg enerative arthritis of the spine w/ persistent moderate to severe thoracolumbar spine pain w/ paraspinal muscle spasms. Completed PT w/ some temporary improvement. Stretching, Tylenol and Tramadol helping w/ the pain. Refer for alternative treatment for persistent back pain. [employer] Other Summary Purpose Family History No Family [...] ed section and content) Medication QuestionCongestio n [phone] ATBwellnessNo InformationCPAP Equipment?4 month follow upBack SpasmsNo InformationXR resultsreferral for PTNo InformationNo InformationNo InformationCT resultsDifferent InhalerPFT resultstesting resultsback painMedicationNo InformationDexa [id number] cold/sore throatNo Information4 month Follow upHR-AtenololUpdateNo Information INFORMATION SOURCE (unrecogn ized section and content) DATE CREATED AUTHOR 01/01/2023 [facility] DATE CREATED AUTHOR AUTHOR'S ORGANIZ ATION 05/28/2023 [facility] DATE CREATED AUTHOR AUTHOR'S ORGANIZ ATION 08/05/2023 [facility] DATE CREATED AUTHOR AUTHOR'S ORGANIZ ATION 01/17/2024 [facility] [employer] Care Teams (unrecognized sec [...] BE BASED ON THE PRIMARY CLINICAL RECORDS. [employer] [facility]. provides no warranty or guarantee of the accuracy or completeness of information in this document.
--- OUTSIDE RECORDS SUMMARY | 2024-01-19 08:31 | XMS_ITS | CCD ---
Author Organization [facility] Care Team Providers Care Salesperson Jewelry Name Role Phone Edwin Izquierdo Unavailable MARQUES, [...] Care Provider DO Edwin Izquierdo Attending Provider [phone] Edwin Izquierdo Attending Unavailable Marques, Edwin Primary Care Unavailable Edwin Izquierdo Admitting Unavailable Ailin CHO, Raphael Luna Attending Unavailable Ailin CHO, Raphael Luna Attending Unavailable Ailin CHO, Raphael Luna Attending Unavailable ANGEL ACMPOS Attending Unavailable ANGEL CAMPOS Attending Unavailable YANY MARTINEZ Attending Unavailable Allergies Allergy Classification Reported Allergen(s) Allergy Type Date of Onset Reaction(s) Facility (7 sources) Cefaclor; Translations: [Ceclor] Drug Allergy Unknown [facility] (20 sources) Ciprofloxacin Drug Allergy Unknown [facility] Other (1 source) Ciprofloxacin Drug Allergy [facility] (1 source) Robafen DM Cough-Chest Congest Drug allergy (disorder) [facility] (20 sources) Ceclor *CEPHALOSPORINS* Propensity to adverse reactions Unknown [facility] Other Medications Current Medications Medication Drug Class(es) Dates Sig (Normalized) Sig (Original) [id number] 200 actuat albuterol 0.09 mg/actuat metered dose [...] Coronary arteriosclerosis; 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 Admission #: [id number] Family : Order #: [id number] CLICK HERE TO VIEW EXAM RADIOLOGY REPORT [...] 03-27-2022 BASO # 0.0 103/ul Normal 0.0-0.1 [facility] Comment on above: Performed By: #### C BC #### [facility] [address] [address] [address] Eduardo Segura Basophils/100 WBC (Bld) 0.3 % Normal 0.2-2.0 [facility] Comment on above: Performed By: #### C BC #### [facility] [address] [place] [address] Dr. Eduardo Segura EO # 0.3 103/ul Normal 0.0-0.7 [facility] Comment on above: Performed By: #### C BC #### [facility] [address] [place] [address] Dr. Eduardo Segura Eosinophils/100 WBC (Bld) 4.3 % Normal 0.9-7.0 [facility] Comment on above: Performed By: #### C BC #### [facility] [address] [place] [address] Dr. Eduardo Segura Erythrocyte distribution width (RBC) [Ratio] 13.7 % Normal 11.0-15.0 [facility] Comment on above: Performed By: #### C BC #### [facility] [address] [place] [address] Dr. Eduardo Segura Hematocrit (Bld) [Volume fraction] 42.6 % Normal 36.0-48.0 [facility] Comment on above: Performed By: #### C BC #### [facility] [address] [place] [address] Dr. Eduardo Segura Hemoglobin (Bld) [Mass/Vol] 14.1 g/dL Normal 12.0-16.0 [facility] Comment on above: Performed By: #### C BC #### [facility] [address] [place] [address] Dr. Eduardo Segura IG # 0.02 10e3/ul Normal 0.00-0.03 [facility] Comment on above: Performed By: #### C BC #### [facility] [address] [place] [address] Dr. Eduardo Segura IG % 0.3 % Normal 0.0-0.5 [facility] Comment on above: Performed By: #### C BC #### [facility] [address] [place] [address] Dr. Eduardo Segura LYMPH # 2.3 103/ul Normal 1.2-3.8 [facility] Comment on above: Performed By: #### C BC #### [facility] [address] [place] [address] Dr. Eduardo Segura Lymphocytes/100 WBC (Bld) 31.9 % Normal 20.5-60.0 [facility] Comment on above: Performed By: #### C BC #### [facility] [address] [place] [address] Dr. Eduardo Segura MANUAL DIFF REQ NO Normal [facility] Comment on above: Performed By: #### C BC #### [facility] [address] [place] [address] Dr. Eduardo Segura MCH (RBC) [Entitic mass] 31.1 pg Normal 26.7-34.0 [facility] Comment on above: Performed By: #### C BC #### [facility] [address] [place] [address] Dr. Eduardo Segura MCHC (RBC) [Mass/Vol] 33.1 g/dL Normal 29.9-35.2 [facility] Comment on above: Performed By: #### C BC #### [facility] [address] [place] [address] Dr. Eduardo Segura MCV (RBC) [Entitic vol] 94.0 fL Normal 81.0-99.0 [facility] Comment on above: Performed By: #### C BC #### [facility] [address] [place] [address] Dr. Eduardo Segura MONO # 0.6 103/ul Normal 0.3-0.8 [facility] Comment on above: Performed By: #### C BC #### [facility] [address] [place] [address] Dr. Eduardo Segura Monocytes/100 WBC (Bld) 7.7 % Normal 1.7-12.0 [facility] Comment on above: Performed By: #### C BC #### [facility] [address] [place] [address] Dr. Eduardo Segura NEUT # 4.0 103/ul Normal 1.4-6.5 [facility] Comment on above: Performed By: #### C BC #### [facility] [address] [address] [address] Eduardo Segura Neutrophils/100 WBC (Bld) 55.5 % Normal 43.0-75.0 [facility] Comment on above: Performed By: #### C BC #### [facility] [address] [place] [address] Dr. Eduardo Segura Platelet mean volume (Bld) [Entitic vol] 10.2 fL Normal 9.5-13.5 [facility] Comment on above: Performed By: #### C BC #### [facility] [address] [place] [address] Dr. Eduardo Segura PLT 286 103/ul Normal 150-450 [facility] Comment on above: Performed By: #### C BC #### [facility] [address] [place] [address] Dr. Eduardo Segura RBC 4.53 106/ul Normal 4.20-5.40 [facility] Comment on above: Performed By: #### C BC #### [facility] [address] [place] [address] Dr. Eduardo Segura WBC 7.2 103/ul Normal 4.0-11.0 [facility] Comment on above: Performed By: #### C BC #### [facility] [address] [place] [address] Dr. Eduardo Segura GLYCOHEMOGLOBIN A1Con 2021 ADA RECOMMENDATION SEE BELOW Normal The [facility] Comment on above: Result Comment: ADA RECOMMENDED LIMIT 4.0 - 6.0 ADA THERAPEUTIC TARGET < 7.0 ACTION SUGGESTED > 7.0 Performed By: #### A 1C #### [facility] [address] [place] [address] Dr. Eduardo Segura Glucose [Mass/Vol] 134 mg/dL Normal The [facility] Comment on above: Performed By: #### A 1C #### [facility] [address] [place] [address] Dr. Eduardo Segura HbA1c (Bld) [Mass fraction] 6.3 % Critically high 4.5-6.2 [facility] Comment on above: Performed By: #### A 1C #### [facility] [address] [address] [address] Eduardo Segura LIPID PROFILEon 03-27-2022 CHOL-HDL RATIO NORM SEE BELOW Normal [facility] Comment on above: Result Comment: 3.3 - 4.4 LOW RISK 4.4 - 7.1 AVERAGE RISK 7.1 - 11.0 MODERATE RISK >11.0 HIGH RISK Performed By: #### B MP, LIPID, ALT #### [facility] [address] [address] [address] Eduardo Segura Cholesterol [Mass/Vol] 154 mg/dL Normal <=200 [facility] Comment on above: Performed By: #### B MP, LIPID, ALT #### [facility] [address] [address] [address] Eduardo Segura Cholesterol in HDL [Mass/Vol] 60 mg/dL Normal 40-60 [facility] Comment on above: Performed By: #### B MP, LIPID, ALT #### [facility] [address] [address] [address] Eduardo Segura Cholesterol in LDL [Mass/Vol] 75.4 mg/dL Normal [facility] Comment on above: Performed By: #### B MP, LIPID, ALT #### [facility] [address] [address] [address] Eduardo Segura Cholesterol.total/Cho lesterol in HDL [Mass ratio] 2.6 {ratio} Normal [facility] Comment on above: Performed By: #### B MP, LIPID, ALT #### [facility] [address] [address] [address] Eduardo Segura HDL NORMAL > or = 60 mg/dl - LOW CARDIOVASCULAR RISK <40 mg/dl - HIGH CARDIOVASCULAR RISK Normal [facility] Comment on above: Performed By: #### B MP, LIPID, ALT #### [facility] [address] [address] [address] Eduardo Segura LDL CALC NORMAL SEE BELOW Normal [facility] Comment on above: Result Comment: <100 mg/dl OPTIMAL 100 - 129 mg/dl NEAR OR ABOVE OPTIMAL 130 - 159 mg/dl BORDERLINE HIGH 160 - 189 mg/dl HIGH >190 mg/dl VERY HIGH Performed By: #### B MP, LIPID, ALT #### [facility] [address] [place] [address] Dr. Eduardo Segura Triglyceride [Mass/Vol] 93 mg/dL Normal <=150 [facility] Comment on above: Performed By: #### B MP, LIPID, ALT #### [facility] [address] [place] [address] Dr. Eduardo Segura VLDL CALC 18.6 mg/dL Normal [facility] Comment on above: Performed By: #### B MP, LIPID, ALT #### [facility] [address] [place] [address] Dr. Eduardo Segura PROF CHEM 8 (BAS METB)on Anion gap [Moles/Vol] 15.0 mmol/L Normal [facility] Comment on above: Performed By: #### B MP, LIPID, ALT #### [facility] [address] [place] [address] Dr. Eduardo Segura Calcium [Mass/Vol] 9.8 mg/dL Normal 8.5-10.1 [facility] Comment on above: Performed By: #### B MP, LIPID, ALT #### [facility] [address] [place] [address] Dr. Eduardo Segura Chloride [Moles/Vol] 105 mmol/L Normal 98-107 [facility] Comment on above: Performed By: #### B MP, LIPID, ALT #### [facility] [address] [place] [address] Dr. Eduardo Segura CO2 [Moles/Vol] 25.2 mmol/L Normal 21.0-32.0 [facility] Comment on above: Performed By: #### B MP, LIPID, ALT #### [facility] [address] [place] [address] Dr. Eduardo Segura Creatinine [Mass/Vol] 0.77 mg/dL Normal 0.55-1.02 [facility] Comment on above: Performed By: #### B MP, LIPID, ALT #### [facility] [address] [place] [address] Dr. Eduardo Segura EGFR-AF MONEGASQUE >60 Normal >=60 [facility] Comment on above: Performed By: #### B MP, LIPID, ALT #### [facility] [address] [place] [address] Dr. Eduardo Segura EGFR-NON AF MONEGASQUE >60 Normal >=60 [facility] Comment on above: Performed By: #### B MP, LIPID, ALT #### [facility] [address] [place] [address] Dr. Eduardo Segura Glucose [Mass/Vol] 142 mg/dL Critically high 74-106 [facility] Comment on above: Performed By: #### B MP, LIPID, ALT #### [facility] [address] [place] [address] Dr. Eduardo Segura Potassium [Moles/Vol] 4.2 mmol/L Normal 3.5-5.1 [facility] Comment on above: Performed By: #### B MP, LIPID, ALT #### [facility] [address] [place] [address] Dr. Eduardo Segura Sodium [Moles/Vol] 141 mmol/L Normal 136-145 [facility] Comment on above: Performed By: #### B MP, LIPID, ALT #### [facility] [address] [place] [address] Dr. Eduardo Segura Urea nitrogen [Mass/Vol] 17.0 mg/dL Normal 7.0-18.0 [facility] Comment on above: Performed By: #### B MP, LIPID, ALT #### [facility] [address] [place] [address] Dr. Eduardo Segura Urea nitrogen/Creatinine [Mass ratio] 22.1 mg/mg Normal [facility] Comment on above: Performed By: #### B MP, LIPID, ALT #### [facility] [address] [place] [address] Dr. Eduardo Segura [facility] 03-27-2022 ALT [Catalytic activity/Vol] 20 U/L Normal 14-59 [facility] Comment on above: Performed By: #### B MP, LIPID, ALT #### [facility] [address] [place] [address] Dr. Eduardo Segura Vital Signs Date Time Vital Sign Value Performing Clinician Facility 08-09-2023 15:00-0500 Body height 165.1 cm Edwin Ball Other [facility] Other 08-09-2023 15:00-0500 Body mass index (BMI) [Ratio] 32.88 kg/m2 Edwin Ball Other [facility] Other 08-09-2023 15:00-0500 Body weight 89.63 kg Edwin Ball Other [facility] Other 08-09-2023 15:00-0500 Diastolic blood pressure 94 mm[Hg] Edwin Ball Other [facility] Other 08-09-2023 15:00-0500 Respiratory rate 12 /min Edwin Ball Other [facility] Other 08-09-2023 15:00-0500 Systolic blood pressure 134 mm[Hg] Edwin Ball Other [facility] Other 06-08-2023 14:15-0400 Body height 165.1 cm Edwin Ball Other [facility] Other 06-08-2023 14:15-0400 Body mass index (BMI) [Ratio] 33.71 kg/m2 Edwin Ball Other [facility] Other 06-08-2023 14:15-0400 Body weight 91.9 kg Edwin Ball Other [facility] Other 06-08-2023 14:15-0400 Diastolic blood pressure 82 mm[Hg] Edwin Ball Other [facility] Other 06-08-2023 14:15-0400 Respiratory rate 12 /min Edwin Ball Other [facility] Other 06-08-2023 14:15-0400 Systolic blood pressure 128 mm[Hg] Edwin Ball Other [facility] Other 06-03-2023 11:30-0400 Body height 165.1 cm Edwin Ball Other [facility] Other 06-03-2023 11:30-0400 Body mass index (BMI) [Ratio] 33.71 kg/m2 Edwin Ball Other [facility] Other 06-03-2023 11:30-0400 Body weight 91.9 kg Edwin Ball Other [facility] Other 06-03-2023 11:30-0400 Diastolic blood pressure 80 mm[Hg] Edwin Ball Other [facility] Other 06-03-2023 11:30-0400 Respiratory rate 12 /min Edwin Ball Other [facility] Other 06-03-2023 11:30-0400 Systolic blood pressure 130 mm[Hg] Edwin Ball Other [facility] Other 04-12-2023 10:45-0400 Body height 165.1 cm Edwin Ball Other [facility] Other 04-12-2023 10:45-0400 Body mass index (BMI) [Ratio] 34.61 kg/m2 Edwin Ball Other [facility] Other 04-12-2023 10:45-0400 Body weight 94.35 kg Edwin Ball Other [facility] Other 04-12-2023 10:45-0400 Diastolic blood pressure 74 mm[Hg] Edwin Ball Other [facility] Other 04-12-2023 10:45-0400 Respiratory rate 20 /min Edwin Ball Other [facility] Other 04-12-2023 10:45-0400 Systolic blood pressure 116 mm[Hg] Edwin Ball Other [facility] Other 03-29-2023 10:30-0400 Body height 165.1 cm Edwin Ball Other [facility] Other 03-29-2023 10:30-0400 Body mass index (BMI) [Ratio] 34.48 kg/m2 Edwin Ball Other [facility] Other 03-29-2023 10:30-0400 Body weight 93.99 kg Edwin Ball Other [facility] Other 03-29-2023 10:30-0400 Diastolic blood pressure 70 mm[Hg] Edwin Ball Other [facility] Other 03-29-2023 10:30-0400 Respiratory rate 12 /min Edwin Ball Other [facility] Other 03-29-2023 10:30-0400 Systolic blood pressure 158 mm[Hg] Edwin Ball Other [facility] Other 11-25-2022 11:30-0400 Body height 165.1 cm Edwin Ball Other [facility] Other 11-25-2022 11:30-0400 Body mass index (BMI) [Ratio] 35.61 kg/m2 Edwin Ball Other [facility] Other 11-25-2022 11:30-0400 Body weight 97.07 kg Dewin Ball Other [facility] Other 11-25-2022 11:30-0400 Diastolic blood pressure 76 mm[Hg] Edwin Ball Other [facility] Other 11-25-2022 11:30-0400 Respiratory rate 12 /min Edwin Ball Other [facility] Other 11-25-2022 11:30-0400 Systolic blood pressure 126 mm[Hg] Edwin Ball Other [facility] Other Encounters Encounter Date Encounter Type Care Provider Facility Start: 01-17-2024 End: 01-17-2024 ambulatory ANGEL CAMPOS Not Available Start: 10-14-2023 End: 10-14-2023 ambulatory Edwin Ball Other [facility] Other Start: 10-14-2023 Telephone encounter Edwin Ball [facility] Start: 09-19-2023 End: 09-19-2023 ambulatory ANGEL CAMPOS Not Available Start: 08-12-2023 End: 08-12-2023 ambulatory Edwin Ball Other [facility] Other Start: 08-12-2023 Telephone encounter Edwin Ball [facility] Start: 08-11-2023 End: 08-11-2023 ambulatory Edwin Ball Other [facility] Other Start: 08-11-2023 Telephone encounter Edwin Ball [facility] Start: 08-09-2023 End: 08-09-2023 ambulatory Edwin Ball Other [facility] Other Start: 08-09-2023 Office outpatient vi sit 25 minutes Edwin Ball [facility] Start: 08-04-2023 End: 08-04-2023 ambulatory Edwin Ball Other [facility] Other Start: 08-04-2023 Telephone encounter Edwin Izquierdo [facility] Start: 08-02-2023 End: 08-02-2023 ambulatory YANYVALDEMAR MARTINEZ Not Available Start: 07-25-2023 End: 07-26-2023 ambulatory Raphael Parisi MD Facility:[facility] Start: 07-19-2023 End: 07-19-2023 ambulatory Edwin Izquierdo Other [facility] Other Start: 07-19-2023 Office outpatient vi sit 15 minutes Edwin Izquierdo [facility] Start: 06-20-2023 End: 06-21-2023 ambulatory Raphael Parisi MD Facility:[facility] [place] [facility] Start: 06-16-2023 End: 06-16-2023 ambulatory Edwin Izquierdo Other [facility] Other Start: 06-16-2023 Telephone encounter Edwin Izquierdo [facility] Start: 06-15-2023 End: 06-15-2023 ambulatory Edwin Izquierdo Other [facility] Other Start: 06-15-2023 Telephone encounter Edwin Izquierdo [facility] Start: 06-13-2023 End: 06-14-2023 ambulatory Raphael Parisi MD Facility:[facility] Start: 06-09-2023 End: 06-09-2023 ambulatory Edwin Izquierdo Other [facility] Other Start: 06-09-2023 Telephone encounter Edwin Izquierdo [facility] Start: 06-08-2023 End: 06-08-2023 ambulatory Edwin Ball Other [facility] Other Start: 06-08-2023 Office outpatient vi sit 15 minutes Edwin Izquierdo [facility] Start: 06-03-2023 End: 06-03-2023 ambulatory Edwin Ball Other [facility] Other Start: 06-03-2023 Office outpatient vi sit 25 minutes Edwin Ball [facility] Start: 05-25-2023 End: 05-25-2023 ambulatory Edwin Ball Other [facility] Other Start: 05-25-2023 Telephone encounter Edwin Ball [facility] Start: 05-23-2023 End: 05-23-2023 ambulatory Edwin Ball Facility:[facility] Start: 05-23-2023 End: 05-23-2023 ambulatory DO Edwin Ball Work Phone: [facility] Work Phone: Start: 05-23-2023 End: 05-23-2023 Patient encounter procedure DO Edwin Ball Work Phone: [facility] Work Phone: Start: 04-21-2023 End: 04-21-2023 ambulatory Edwin Ball Other [facility] Other Start: 04-21-2023 Telephone encounter Edwin Ball [facility] Start: 04-20-2023 End: 04-20-2023 ambulatory Edwin Ball Other [facility] Other Start: 04-20-2023 Telephone encounter Edwin Ball [facility] Start: 04-18-2023 End: 04-18-2023 ambulatory Edwin Ball Other [facility] Other Start: 04-18-2023 Telephone encounter Edwin Ball [facility] Start: 04-12-2023 End: 04-12-2023 ambulatory Edwin Ball Other [facility] Other Start: 04-12-2023 Office outpatient vi sit 15 minutes Edwin Ball [facility] Start: 04-12-2023 Telephone encounter Edwin Ball [facility] Start: 04-07-2023 End: 04-07-2023 ambulatory Edwin Ball Other [facility] Other Start: 04-07-2023 Telephone encounter Edwin Izquierdo [facility] Start: 03-29-2023 End: 03-29-2023 ambulatory Edwin Izquierdo Other [facility] Other Start: 03-29-2023 Office outpatient vi sit 15 minutes Edwin Ball [facility] Start: 01-08-[address] EDWIN IZQUIERDO Facili ty:[facility] Start: 11-30-2022 End: 11-30-2022 ambulatory Edwin Izquierdo Other [facility] Other Start: 11-30-2022 Telephone encounter Edwin Izquierdo [facility] Start: 11-28-2022 End: 11-28-2022 ambulatory Edwin Izquierdo Other [facility] Other Start: 11-28-2022 Telephone encounter Edwin Izquierdo [facility] Start: 11-25-2022 End: 11-25-2022 ambulatory Edwin Izquierdo Other [facility] Other Start: 11-25-2022 Patient encounter procedure Edwin Izquierdo [facility] Start: 11-08-2022 End: 11-08-2022 ambulatory Edwin Izquierdo Other [facility] Other Start: 11-08-2022 Telephone encounter Edwin Izquierdo [facility] Start: 11-01-2022 End: 11-01-2022 ambulatory Edwin Izquierdo Other [facility] Other Start: 11-01-2022 Office outpatient vi sit 15 minutes Edwin Ball [facility] Start: 10-19-2022 End: 10-19-2022 ambulatory Edwin Izquierdo Other [facility] Other Start: 10-19-2022 Telephone encounter Edwin Ball [facility] Start: 07-22-2022 Adult health examination Edwin Izquierdo Other [facility] Other Start: 05-25-2022 End: 05-26-[address] [...] high dose seasonal, preservative-free Edwin Izquierdo Other [facility] Other 06-23-2022 influenza, high dose seasonal, preservative-free Edwin Izquierdo Other [facility] Other 05-18-2022 COVID-19 Pfizer (bivalent) Edwin Izquierdo Other [facility] Other 12-12-2021 COVID-19 Pfizer Edwin kurtz Other [facility] Other 12-12-2021 COVID-19 Vaccine Pfi zer - Documentation Purposes Only Edwin Izquierdo Other [facility] Other 07-21-2021 influenza virus vaccine, split virus (incl. purified surface antigen) Edwin Izquierdo Other [facility] Other 05-22-2021 COVID-19 Vaccine Pfi zer - Documentation Purposes Only Edwin Izquierdo Other [facility] Other 10-08-2020 COVID-19 Vaccine Pfi zer - Documentation Purposes Only Edwin Izquierdo Other [facility] Other 09-17-2020 COVID-19 Vaccine Moderna - Documentation Purposes Only Edwin Izquierdo Other [facility] Other 09-17-2020 COVID-19 Vaccine Pfi zer - Documentation Purposes Only Edwin Izquierdo Other [facility] Other 04-30-2020 influenza virus vaccine, split virus (incl. purified surface antigen) Edwin Izquierdo Other [facility] Other 05-18-2019 pneumococcal polysaccharide vaccine, 23 valent Edwin Ball Other [facility] Other 05-01-2018 pneumococcal polysaccharide vaccine, 23 valent Edwin Ball Other [facility] Other 08-02-2017 diphtheria, tetanus toxoids and acellular pertussis vaccine, unspecified formulation Edwin Izquierdo Other [facility] Other 06-05-2015 pneumococcal conjuga te vaccine, 13 valent Edwin Ball Other [facility] Other 06-04-2015 pneumococcal conjuga te vaccine, 13 valent Edwin Ball Other [facility] Other Payers Date Payer Category Payer Self-pay 2023 Private Health Insurance [id number] 2022 Medicare 2022 Private Health Insurance 1958 Medicare [id number] 2.1 [id number] 1959 Private Health Insurance CLI [id number] 1945 Unknown [id number] 2.16.84 [id number] 1945 Unknown [id number] 2.16.84 [id number] 1945 Unknown [id number] 2.16.84 [id number] 1945 Unknown [id number] 2.16. [id number] 1945 Unknown [id number] 2.16. [id number] 1945 Unknown [id number] 2.16. [id number] 1945 Unknown [id number] 2.16.84 [id number] 1945 Unknown [id number] 2.16.84 [id number] 1945 Unknown [id number] 2.16.840 .[id number] Unknown [id number] 2.16.8 [id number] Social History Date Type Detail Facility Sex Assigned At [facility] Other Start: 1945 Sex Assigned At Female F [facility] Clinical Notes 10-19-2022 to 10-14-2023 Note Date & Type Note Facility 10-14-2023 Evaluation note Encounter Date Diagnosis Assessment Notes Sep, Acute bilateral thoracic back pain (ICD-10 - M54.6) [facility] Other [id number] Evaluation note* Encounter Date Diagnosis Assessment Notes [...] use, the patient reduces the risk for [place], CVA, HTN, cardiac dysrhythmias and sudden cardiac [...] smoker would recommend repeat in 12 months. [employer] Other 12-14-2023 Evaluation note* Encounter Date Diagnosis Assessment Notes Treatment Notes Treatment Clinical Notes Jul, Restrictive lung disease (ICD-10 - J98.4) [facility] Other 11-28-2023 Evaluation note* Encounter Date Diagnosis [...] Send for COVID PCR - results negative [employer] [facility] [employer] Other 10-25-2023 Evaluation note* Encounter Date Diagnosis Assessment Notes Treatment Notes Treatment Clinical Notes May, Age-related osteoporosis without current pathological fracture (ICD-10 - M81.0) [facility] Other 10-19-2023 Evaluation note* Encounter Date Diagnosis Assessment Notes Treatment Notes Treatment Clinical Notes May, Acute bilateral thoracic back pain (ICD-10 - M54.6) [facility] Other 10-18-2023 Evaluation note* Encounter Date Diagnosis [...] index [BMI] 34.0-34.9, adult (ICD-10 - Z68.34) [employer] [facility] Other 10-13-2023 Evaluation note* Encounter Date Diagnosis Assessment Notes Treatment Notes Treatment Clinical Notes May, Simple chronic bronchitis (ICD-10 - J41.0) Continue LABA/ICS Use DIMITRI as needed for cough/wheezing. Control allergies and GERD symptoms. Weight loss May, Restrictive lung disease (ICD-10 - J98.4) Weight loss important. Avoid exposure to dust, smoke and allergens. Continue treatment for DUSTIN Refer to [facility] for evaluation and treatment May, DUSTIN (obstructive sle ep apnea) (ICD-10 - G47.33) This patient is aware of the benefits associated with DUSTIN: With continued use, the patient reduces the risk for [place], CVA, HTN, cardiac dysrhythmias and sudden cardiac [...] continue exercise to achieve/maintain a normal BMI. [employer] [facility] [employer] Other 08-31-2023 Evaluation note* Encounter Date Diagnosis Assessment Notes Treatment Notes Treatment Clinical Notes Mar, Chronic bronchitis, simple (ICD-10 - J41.0) [facility] Other 08-30-2023 Evaluation note* Encounter Date Diagnosis Assessment Notes Treatment Notes Treatment Clinical Notes Mar, Chronic bronchitis, simple (ICD-10 - J41.0) [facility] Other 08-30-2023 Evaluation note* Encounter Date Diagnosis Assessment Notes Treatment Notes Treatment Clinical Notes Mar, Chronic bronchitis, simple (ICD-10 - J41.0) Mar, DOUGLAS (dyspnea on exertion) (ICD-10 - R06.09) [facility] Other 08-28-2023 Evaluation note* Encounter Date Diagnosis Assessment Notes Treatment Notes Treatment Clinical Notes Mar, Pulmonary nodule (ICD-10 - R91.1) [facility] Other 08-22-2023 Evaluation note* Encounter Date Diagnosis Assessment Notes Treatment Notes Treatment Clinical Notes Mar, Pulmonary nodule (ICD-10 - R91.1) [facility] Other 08-22-2023 Evaluation note* Encounter Date Diagnosis [...] [BMI ] 34.0-34.9, adult (ICD-10 - Z68.34) [facility] Other 08-17-2023 Evaluation note* Encounter Date Diagnosis Assessment Notes Treatment Notes Treatment Clinical Notes Mar, Acute bilateral low back pain without sciatica (ICD-10 - M54.50) [facility] Other 08-08-2023 Evaluation note* Encounter Date Diagnosis [...] 3 mo as needed. Continue weight loss [employer] [facility] [employer] Other 04-09-2023 Evaluation note* Encounter Date Diagnosis Assessment Notes Treatment Notes Treatment Clinical Notes Nov, Obstructive sleep apnea (adult) (pediatric) (ICD-10 - G47.33) AHI 34, CPAP14, [employer] [facility] Other 04-06-2023 Evaluation note* Encounter Date Diagnosis [...] use, the patient reduces the risk for [place], CVA, HTN, cardiac dysrhythmias and sudden cardiac [...] High risk medication use (ICD-10 - Z79.899) [facility] Other 03-13-2023 Evaluation note* Encounter Date Diagnosis Assessment Notes Treatment Notes Treatment Clinical Notes Oct, Acute non-recurrent maxillary sinusitis (ICD-10 - J01.00) Instructed to use Flonase NS for congestion, Tessalon for cough, Tylenol for pain and fever. Oct, Acute cough (ICD-10 - R05.1) Head upright, push fluids and Tessalon perles [facility] Other 02-28-2023 Evaluation note* Encounter Date Diagnosis Assessment Notes Treatment Notes Treatment Clinical Notes Sep, Pure hypercholestero lemia (ICD-10 - E78.00) [employer] [facility] [employer] Other Evaluation noteNo InformationNort [employer] Other Evaluation noteNo assessment information available [facility] Work Phone: [facility] general Narrative - Reported* Type Description Date Medical History Essential hypertension Medical History ASHD (arteriosclerotic heart dis ease) Medical History Chronic venous insufficiency Medical History Chronic bronchitis, simple Medical History High cholesterol Medical History Lumbar spondylosis Medical History Obesity (BMI 30-39.9) Medical History Obstructive sleep apnea (adult) (pediatric) [employer] [facility] [employer] Other [facility] general Narrative - Reported* Type Description Date [...] COLONSCOPY 2018 Hospitalization History SEE SURGICAL HX [facility] Other [facility] general Narrative - Reported* Type Description Date [...] COLONSCOPY 2018 Hospitalization History SEE SURGICAL HX [facility] Other Hisyn[facility] general Narrative - Reported* Type Description Date [...] History TONSILLECTOMY Surgical History D&C Surgical History [facility] Surgical History CYSTOSCOPY Surgical History URETHRAL DILATION 2005 Surgical History COLONSCOPY 2018 Hospitalization History SEE SURGICAL HX [facility] Other Reason for referral (narrative)* Reason Referral for COPD an d RLD Diagnosis 1 Restrictive lung dis ease (J98.4) Diagnosis 2 Chronic bronchitis, simple (J41.0) Diagnosis 3 Pulmonary nodule (R9 1.1) Diagnosis 4 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 Obesity may contribute to respiratory complaints. Clinical Notes Labs, CT, PFT [facility] [employer] Other Reason for referral (narrative)* Reason Referral for persist ent thoracolumbar spine pain Diagnosis 1 Acute bilateral thor acic back pain (M54.6) Diagnosis 2 Lumbar spondylosis ( M47.816) Diagnosis 3 Age-related osteopor osis without current pathological fracture (M81.0) Referral Organization [facility] [employer] [facility] Referring Provider First Name Edwin Referring Provider Last Name Marques Referring Provider Specialty Internal Mt dicine Referred Organization [facility] Referred Provider Freddie Cotton Referred Address [address], [place],[address] Referred Provider Specialty Pain Medicin e Referral Priority Routine General Notes Patient w/ known deg enerative arthritis of the spine w/ persistent moderate to severe thoracolumbar spine pain w/ paraspinal muscle spasms. Completed PT w/ some temporary improvement. Stretching, Tylenol and Tramadol helping w/ the pain. Refer for alternative treatment for persistent back pain. [employer] [facility] [employer] Other Summary Purpose Family History No Family [...] ed section and content) Medication QuestionCongestio n [phone] ATBwellnessNo InformationCPAP Equipment?4 month follow upBack SpasmsNo InformationXR resultsreferral for PTNo InformationNo InformationNo InformationCT resultsDifferent InhalerPFT resultstesting resultsback painMedicationNo InformationDexa [phone] cold/sore throatNo Information4 month Follow upHR-AtenololUpdateNo Information INFORMATION SOURCE (unrecogn ized section and content) DATE CREATED AUTHOR 01/01/2023 [facility] DATE CREATED AUTHOR AUTHOR'S ORGANIZ ATION 05/28/2023 [facility] DATE CREATED AUTHOR AUTHOR'S ORGANIZ ATION 08/05/2023 [facility] DATE CREATED AUTHOR AUTHOR'S ORGANIZ ATION 01/17/2024 [facility] EPIC Care Teams (unrecognized sec [...] BE BASED ON THE PRIMARY CLINICAL RECORDS. [employer] [facility]. provides no warranty or guarantee of the accuracy or completeness of information in this document.
[2024-01-19 10:15] LABS: Potassium 3.7 mmol/L (3.5-5.1)
== END 2024-01-19 08:11 | disposition home or self-care (01) ==
LOC: LAB 08:10
PROVIDERS: PCP Internal Medicine; Visit Provider Internal Medicine
DX: E87.6 Hypokalemia (principal)
CPT/HCPCS: 36415; 84132

== ENCOUNTER 2024-01-31 09:34 | Outpatient (OUT) | payer MEDICARE, SELFPAY ==
--- OUTSIDE RECORDS SUMMARY | 2024-01-31 09:55 | XMS_ITS | CCD ---
Author Organization [facility] Care Team Providers Care Inspector Filters Name Role Phone Edwin Izquierdo Unavailable MARQUES, [...] Cefaclor; Translations: [Ceclor] Drug Allergy Unknown [facility] Repository (20 sources) Ciprofloxacin Drug Allergy Unknown [facility] Other (1 source) Ciprofloxacin Drug Allergy [facility] Repository (1 source) Robafen DM Cough-Chest Congest Drug allergy (disorder) [facility] Repository (20 sources) Ceclor *CEPHALOSPORINS* Propensity to adverse reactions Unknown [facility] Other Medications Current Medications Medication Drug Class(es) Dates Sig (Normalized) Sig (Original) [id number] 200 actuat albuterol 0.09 mg/actuat metered dose [...] Coronary arteriosclerosis; Translations: [Atherosclerotic heart disease of [place] coronary artery without angina pectoris] Chronic Diabetes [...] current use of drug therapy; Translations: [Other usp (current) drug therapy] Episodic Other diseases of [...] 2016 Episodic Other aftercare (2 sources) Other ocean transportation intermediary (current) drug therapy; Translations: [[facility] [...] : DR EDWIN IZQUIERDO D.O. Admission #: [id number] Family : Order #: [id number] CLICK HERE TO VIEW EXAM RADIOLOGY REPORT [...] Treatments None Family Cancers None LOCATION: [facility] BREAST COMPOSITION: Scattered areas fibroglandular density. [...] MD on 05/26/2022 at 07:48 Normal [facility] CBC AUTO DIFFon 03-27-2022 BASO # 0.0 103/ul Normal 0.0-0.1 [facility] Comment on above: Performed By: #### C BC #### [facility] [address] [address] [address] Eduardo Segura Basophils/100 WBC (Bld) 0.3 % Normal 0.2-2.0 [facility] Comment on above: Performed By: #### C BC #### [facility] [address] [place] [address] Dr. Eduardo Segura EO # 0.3 103/ul Normal 0.0-0.7 [facility] Comment on above: Performed By: #### C BC #### [facility] [address] [place] [address] Dr. Eduardo Segura Eosinophils/100 WBC (Bld) 4.3 % Normal 0.9-7.0 [facility] Comment on above: Performed By: #### C BC #### [facility] [address] [place] [address] Dr. Eduardo Segura Erythrocyte distribution width (RBC) [Ratio] 13.7 % Normal 11.0-15.0 [facility] Comment on above: Performed By: #### C BC #### [facility] [address] [place] [address] Dr. Eduardo Segura Hematocrit (Bld) [Volume fraction] 42.6 % Normal 36.0-48.0 [facility] Comment on above: Performed By: #### C BC #### [facility] [address] [place] [address] Dr. Eduardo Segura Hemoglobin (Bld) [Mass/Vol] 14.1 g/dL Normal 12.0-16.0 [facility] Comment on above: Performed By: #### C BC #### [facility] [address] [place] [address] Dr. Eduardo Segura IG # 0.02 10e3/ul Normal 0.00-0.03 [facility] Comment on above: Performed By: #### C BC #### [facility] [address] [place] [address] Dr. Eduardo Segura IG % 0.3 % Normal 0.0-0.5 [facility] Comment on above: Performed By: #### C BC #### [facility] [address] [place] [address] Dr. Eduardo Segura LYMPH # 2.3 103/ul Normal 1.2-3.8 [facility] Comment on above: Performed By: #### C BC #### [facility] [address] [place] [address] Dr. Eduardo Segura Lymphocytes/100 WBC (Bld) 31.9 % Normal 20.5-60.0 [facility] Comment on above: Performed By: #### C BC #### [facility] [address] [place] [address] Dr. Eduardo Segura MANUAL DIFF REQ NO Normal [facility] Comment on above: Performed By: #### C BC #### [facility] [address] [place] [address] Dr. Eduardo Segura MCH (RBC) [Entitic mass] 31.1 pg Normal 26.7-34.0 [facility] Comment on above: Performed By: #### C BC #### [facility] [address] [place] [address] Dr. Eduardo Segura MCHC (RBC) [Mass/Vol] 33.1 g/dL Normal 29.9-35.2 [facility] Comment on above: Performed By: #### C BC #### [facility] [address] [place] [address] Dr. Eduardo Segura MCV (RBC) [Entitic vol] 94.0 fL Normal 81.0-99.0 [facility] Comment on above: Performed By: #### C BC #### [facility] [address] [place] [address] Dr. Eduardo Segura MONO # 0.6 103/ul Normal 0.3-0.8 [facility] Comment on above: Performed By: #### C BC #### [facility] [address] [place] [address] Dr. Eduardo Segura Monocytes/100 WBC (Bld) 7.7 % Normal 1.7-12.0 [facility] Comment on above: Performed By: #### C BC #### [facility] [address] [place] [address] Dr. Eduardo Segura NEUT # 4.0 103/ul Normal 1.4-6.5 [facility] Comment on above: Performed By: #### C BC #### [facility] [address] [address] [address] Eduardo Segura Neutrophils/100 WBC (Bld) 55.5 % Normal 43.0-75.0 [facility] Comment on above: Performed By: #### C BC #### [facility] [address] [place] [address] Dr. Eduardo Segura Platelet mean volume (Bld) [Entitic vol] 10.2 fL Normal 9.5-13.5 [facility] Comment on above: Performed By: #### C BC #### [facility] [address] [place] [address] Dr. Eduardo Segura PLT 286 103/ul Normal 150-450 [facility] Comment on above: Performed By: #### C BC #### [facility] [address] [place] [address] Dr. Eduardo Segura RBC 4.53 106/ul Normal 4.20-5.40 [facility] Comment on above: Performed By: #### C BC #### [facility] [address] [place] [address] Dr. Eduardo Segura WBC 7.2 103/ul Normal 4.0-11.0 [facility] Comment on above: Performed By: #### C BC #### [facility] [address] [place] [address] Dr. Eduardo Segura GLYCOHEMOGLOBIN A1Con 2021 ADA RECOMMENDATION SEE BELOW Normal [facility] Comment on above: Result Comment: ADA RECOMMENDED LIMIT 4.0 - 6.0 ADA THERAPEUTIC TARGET < 7.0 ACTION SUGGESTED > 7.0 Performed By: #### A 1C #### [facility] [address] [place] [address] Dr. Eduardo Segura Glucose [Mass/Vol] 134 mg/dL Normal [facility] Comment on above: Performed By: #### A 1C #### [facility] [address] [place] [address] Dr. Eduardo Segura HbA1c (Bld) [Mass fraction] 6.3 % Critically high 4.5-6.2 [facility] Comment on above: Performed By: #### A 1C #### [facility] [address] [address] [address] Eduardo Segura LIPID PROFILEon 03-27-2022 CHOL-HDL RATIO NORM SEE BELOW Normal [facility] Comment on above: Result Comment: 3.3 - 4.4 LOW RISK 4.4 - 7.1 AVERAGE RISK 7.1 - 11.0 MODERATE RISK >11.0 HIGH RISK Performed By: #### B MP, LIPID, ALT #### [facility] [address] [address] [address] Eduardo Segura Cholesterol [Mass/Vol] 154 mg/dL Normal <=200 [facility] Comment on above: Performed By: #### B MP, LIPID, ALT #### [facility] [address] [address] [address] Eduardo Segura Cholesterol in HDL [Mass/Vol] 60 mg/dL Normal 40-60 [facility] Comment on above: Performed By: #### B MP, LIPID, ALT #### [facility] [address] [address] [address] Eduardo Segura Cholesterol in LDL [Mass/Vol] 75.4 mg/dL Normal [facility] Comment on above: Performed By: #### B MP, LIPID, ALT #### [facility] [address] [address] [address] Eduardo Segura Cholesterol.total/Cho lesterol in HDL [Mass ratio] 2.6 {ratio} Normal [facility] Comment on above: Performed By: #### B MP, LIPID, ALT #### [facility] [address] [address] [address] Eduardo Segura HDL NORMAL > or = 60 mg/dl - LOW CARDIOVASCULAR RISK <40 mg/dl - HIGH CARDIOVASCULAR RISK Normal [facility] Comment on above: Performed By: #### B MP, LIPID, ALT #### [facility] [address] [address] [address] Eduardo Segura LDL CALC NORMAL SEE BELOW Normal [facility] Comment on above: Result Comment: <100 mg/dl OPTIMAL 100 - 129 mg/dl NEAR OR ABOVE OPTIMAL 130 - 159 mg/dl BORDERLINE HIGH 160 - 189 mg/dl HIGH >190 mg/dl VERY HIGH Performed By: #### B MP, LIPID, ALT #### [facility] [address] [place] [address] Dr. Eduardo Segura Triglyceride [Mass/Vol] 93 mg/dL Normal <=150 [facility] Comment on above: Performed By: #### B MP, LIPID, ALT #### [facility] [address] [place] [address] Dr. Eduardo Segura VLDL CALC 18.6 mg/dL Normal [facility] Comment on above: Performed By: #### B MP, LIPID, ALT #### [facility] [address] [place] [address] Dr. Eduardo Segura PROF CHEM 8 (BAS METB)on Anion gap [Moles/Vol] 15.0 mmol/L Normal [facility] Comment on above: Performed By: #### B MP, LIPID, ALT #### [facility] [address] [place] [address] Dr. Eduardo Segura Calcium [Mass/Vol] 9.8 mg/dL Normal 8.5-10.1 [facility] Comment on above: Performed By: #### B MP, LIPID, ALT #### [facility] [address] [place] [address] Dr. Eduardo eSgura Chloride [Moles/Vol] 105 mmol/L Normal 98-107 [facility] Comment on above: Performed By: #### B MP, LIPID, ALT #### [facility] [address] [place] [address] Dr. Eduardo Segura CO2 [Moles/Vol] 25.2 mmol/L Normal 21.0-32.0 [facility] Comment on above: Performed By: #### B MP, LIPID, ALT #### [facility] [address] [place] [address] Dr. Eduardo Segura Creatinine [Mass/Vol] 0.77 mg/dL Normal 0.55-1.02 [facility] Comment on above: Performed By: #### B MP, LIPID, ALT #### [facility] [address] [place] [address] Dr. Eduardo Segura EGFR-AF GUYANESE >60 Normal >=60 [facility] Comment on above: Performed By: #### B MP, LIPID, ALT #### [facility] [address] [place] [address] Dr. Eduardo Segura EGFR-NON AF GUYANESE >60 Normal >=60 [facility] Comment on above: Performed By: #### B MP, LIPID, ALT #### [facility] [address] [place] [address] Dr. Eduardo Segura Glucose [Mass/Vol] 142 mg/dL Critically high 74-106 [facility] Comment on above: Performed By: #### B MP, LIPID, ALT #### [facility] [address] [place] [address] Dr. Eduardo Segura Potassium [Moles/Vol] 4.2 mmol/L Normal 3.5-5.1 [facility] Comment on above: Performed By: #### B MP, LIPID, ALT #### [facility] [address] [place] [address] Dr. Eduardo Segura Sodium [Moles/Vol] 141 mmol/L Normal 136-145 [facility] Comment on above: Performed By: #### B MP, LIPID, ALT #### [facility] [address] [place] [address] Dr. Eduardo Segura Urea nitrogen [Mass/Vol] 17.0 mg/dL Normal 7.0-18.0 [facility] Comment on above: Performed By: #### B MP, LIPID, ALT #### [facility] [address] [place] [address] Dr. Eduardo Segura Urea nitrogen/Creatinine [Mass ratio] 22.1 mg/mg Normal [facility] Comment on above: Performed By: #### B MP, LIPID, ALT #### [facility] [address] [place] [address] Dr. Eduardo Segura [facility] 03-27-2022 ALT [Catalytic activity/Vol] 20 U/L Normal 14-59 [facility] Comment on above: Performed By: #### B MP, LIPID, ALT #### [facility] [address] [place] [address] Dr. Eduardo Segura Vital Signs Date Time Vital Sign Value Performing Clinician Facility 08-09-2023 15:00-0500 Body height 165.1 cm Edwin Ball Other [facility] Other 08-09-2023 15:00-0500 Body mass index (BMI) [Ratio] 32.88 kg/m2 Edwin Ball Other [facility] Other 08-09-2023 15:00-0500 Body weight 89.63 kg Edwin Ball Other [facility] Other 08-09-2023 15:00-0500 Diastolic blood pressure 94 mm[Hg] Edwin Ball Other [facility] Other 08-09-2023 15:00-0500 Respiratory rate 12 /min Edwin Ball Other [facility] Other 08-09-2023 15:00-0500 Systolic blood pressure 134 mm[Hg] Edwin Ball Other [facility] Other 06-08-2023 14:15-0400 Body height 165.1 cm Edwin Ball Other [facility] Other 06-08-2023 14:15-0400 Body mass index (BMI) [Ratio] 33.71 kg/m2 Edwin Ball Other [facility] Other 06-08-2023 14:15-0400 Body weight 91.9 kg Edwin Ball Other [facility] Other 06-08-2023 14:15-0400 Diastolic blood pressure 82 mm[Hg] Edwin Ball Other [facility] Other 06-08-2023 14:15-0400 Respiratory rate 12 /min Edwin Ball Other [facility] Other 06-08-2023 14:15-0400 Systolic blood pressure 128 mm[Hg] Edwin Ball Other [facility] Other 06-03-2023 11:30-0400 Body height 165.1 cm Edwin Ball Other [facility] Other 06-03-2023 11:30-0400 Body mass index (BMI) [Ratio] 33.71 kg/m2 Edwin Ball Other [facility] Other 06-03-2023 11:30-0400 Body weight 91.9 kg Edwin Ball Other [facility] Other 06-03-2023 11:30-0400 Diastolic blood pressure 80 mm[Hg] Edwin Ball Other [facility] Other 06-03-2023 11:30-0400 Respiratory rate 12 /min Edwin Ball Other [facility] Other 06-03-2023 11:30-0400 Systolic blood pressure 130 mm[Hg] Edwin Ball Other [facility] Other 04-12-2023 10:45-0400 Body height 165.1 cm Edwin Ball Other [facility] Other 04-12-2023 10:45-0400 Body mass index (BMI) [Ratio] 34.61 kg/m2 Edwin Ball Other [facility] Other 04-12-2023 10:45-0400 Body weight 94.35 kg Edwin Ball Other [facility] Other 04-12-2023 10:45-0400 Diastolic blood pressure 74 mm[Hg] Edwin Ball Other [facility] Other 04-12-2023 10:45-0400 Respiratory rate 20 /min Edwin Ball Other [facility] Other 04-12-2023 10:45-0400 Systolic blood pressure 116 mm[Hg] Edwin Ball Other [facility] Other 03-29-2023 10:30-0400 Body height 165.1 cm Edwin Ball Other [facility] Other 03-29-2023 10:30-0400 Body mass index (BMI) [Ratio] 34.48 kg/m2 Edwin Ball Other [facility] Other 03-29-2023 10:30-0400 Body weight 93.99 kg Edwin Ball Other [facility] Other 03-29-2023 10:30-0400 Diastolic blood pressure 70 mm[Hg] Edwin Ball Other [facility] Other 03-29-2023 10:30-0400 Respiratory rate 12 /min Edwin Ball Other [facility] Other 03-29-2023 10:30-0400 Systolic blood pressure 158 mm[Hg] Edwin Ball Other [facility] Other 11-25-2022 11:30-0400 Body height 165.1 cm Edwin Ball Other [facility] Other 11-25-2022 11:30-0400 Body mass index (BMI) [Ratio] 35.61 kg/m2 Edwin Ball Other [facility] Other 11-25-2022 11:30-0400 Body weight 97.07 kg Edwin Ball Other [facility] Other 11-25-2022 11:30-0400 Diastolic blood pressure 76 mm[Hg] Edwin Ball Other [facility] Other 11-25-2022 11:30-0400 Respiratory rate 12 /min Edwin Ball Other [facility] Other 11-25-2022 11:30-0400 Systolic blood pressure 126 mm[Hg] Edwin Ball Other [facility] Other Encounters Encounter Date Encounter Type Care Provider Facility Start: 01-17-2024 End: 01-17-2024 ambulatory ANGEL CAMPOS Not Available Start: 10-14-2023 End: 10-14-2023 ambulatory Edwin Ball Other [facility] Other Start: 10-14-2023 Telephone encounter Edwin Ball [facility] Start: 09-19-2023 End: 09-19-2023 ambulatory ANGEL CAMPOS Not Available Start: 08-12-2023 End: 08-12-2023 ambulatory Edwin Ball Other [facility] Other Start: 08-12-2023 Telephone encounter Edwin Ball [facility] Start: 08-11-2023 End: 08-11-2023 ambulatory Edwin Ball Other [facility] Other Start: 08-11-2023 Telephone encounter Edwin Ball [facility] Start: 08-09-2023 End: 08-09-2023 ambulatory Edwin Ball Other [facility] Other Start: 08-09-2023 Office outpatient vi sit 25 minutes Edwin Ball [facility] Start: 08-04-2023 End: 08-04-2023 ambulatory Edwin Ball Other [facility] Other Start: 08-04-2023 Telephone encounter Edwin Izquierdo [facility] Start: 08-02-2023 End: 08-02-2023 ambulatory YANYVALDEMAR MARTINEZ Not Available Start: 07-25-2023 End: 07-26-2023 ambulatory Raphael Parisi MD Facility:[facility] Start: 07-19-2023 End: 07-19-2023 ambulatory Edwin Izquierdo Other [facility] Other Start: 07-19-2023 Office outpatient vi sit 15 minutes Edwin Izquierdo [facility] Start: 06-20-2023 End: 06-21-2023 ambulatory Raphael Parisi MD Facility:[facility] Start: 06-16-2023 End: 06-16-2023 ambulatory Edwin Izquierdo Other [facility] Other Start: 06-16-2023 Telephone encounter Edwin Izquierdo [facility] Start: 06-15-2023 End: 06-15-2023 ambulatory Edwin Izquierdo Other [facility] Other Start: 06-15-2023 Telephone encounter Edwin Izquierdo [facility] Start: 06-13-2023 End: 06-14-2023 ambulatory Raphael Parisi MD Facility:[facility] Start: 06-09-2023 End: 06-09-2023 ambulatory Edwin Izquierdo Other [facility] Other Start: 06-09-2023 Telephone encounter Edwin Izquierdo [facility] Start: 06-08-2023 End: 06-08-2023 ambulatory Edwin Ball Other [facility] Other Start: 06-08-2023 Office outpatient vi sit 15 minutes Edwin Izquierdo [facility] Start: 06-03-2023 End: 06-03-2023 ambulatory Edwin Ball Other [facility] Other Start: 06-03-2023 Office outpatient vi sit 25 minutes Edwin Ball [facility] Start: 05-25-2023 End: 05-25-2023 ambulatory Edwin Ball Other [facility] Other Start: 05-25-2023 Telephone encounter Edwin Ball [facility] Start: 05-23-2023 End: 05-23-2023 ambulatory Edwin Ball Facility:[facility] Start: 05-23-2023 End: 05-23-2023 ambulatory DO Edwin Ball Work Phone: [facility] Work Phone: Start: 05-23-2023 End: 05-23-2023 Patient encounter procedure DO Edwin Ball Work Phone: [facility] Work Phone: Start: 04-21-2023 End: 04-21-2023 ambulatory Edwin Ball Other [facility] Other Start: 04-21-2023 Telephone encounter Edwin Ball [facility] Start: 04-20-2023 End: 04-20-2023 ambulatory Edwin Ball Other [facility] Other Start: 04-20-2023 Telephone encounter Edwin Ball [facility] Start: 04-18-2023 End: 04-18-2023 ambulatory Edwin Ball Other [facility] Other Start: 04-18-2023 Telephone encounter Edwin Ball [facility] Start: 04-12-2023 End: 04-12-2023 ambulatory Edwin Ball Other [facility] Other Start: 04-12-2023 Office outpatient vi sit 15 minutes Edwin Ball [facility] Start: 04-12-2023 Telephone encounter Edwin Ball [facility] Start: 04-07-2023 End: 04-07-2023 ambulatory Edwin Ball Other [facility] Other Start: 04-07-2023 Telephone encounter Edwin Izquierdo [facility] Start: 03-29-2023 End: 03-29-2023 ambulatory Edwin Izquierdo Other [facility] Other Start: 03-29-2023 Office outpatient vi sit 15 minutes Edwin Ball [facility] Start: 01-08-[address] EDWIN IZQUIERDO Facili ty:[facility] Start: 11-30-2022 End: 11-30-2022 ambulatory Edwin Izquierdo Other [facility] Other Start: 11-30-2022 Telephone encounter Edwin Izquierdo [facility] Start: 11-28-2022 End: 11-28-2022 ambulatory Edwin Izquierdo Other [facility] Other Start: 11-28-2022 Telephone encounter Edwin Izquierdo [facility] Start: 11-25-2022 End: 11-25-2022 ambulatory Edwin Izquierdo Other [facility] Other Start: 11-25-2022 Patient encounter procedure Edwin Izquierdo [facility] Start: 11-08-2022 End: 11-08-2022 ambulatory Edwin Izquierdo Other [facility] Other Start: 11-08-2022 Telephone encounter Edwin Izquierdo [facility] Start: 11-01-2022 End: 11-01-2022 ambulatory Edwin Izquierdo Other [facility] Other Start: 11-01-2022 Office outpatient vi sit 15 minutes Edwin Ball [facility] Start: 10-19-2022 End: 10-19-2022 ambulatory Edwin Izquierdo Other [facility] Other Start: 10-19-2022 Telephone encounter Edwin Ball [facility] Start: 07-22-2022 Adult health examination Edwin Izquierdo Other [facility] Other Start: 05-25-2022 End: 05-26-[address] [...] high dose seasonal, preservative-free Edwin Izquierdo Other [facility] Other 06-23-2022 influenza, high dose seasonal, preservative-free Edwin Izquierdo Other [facility] Other 05-18-2022 COVID-19 Pfizer (bivalent) Edwin Izquierdo Other [facility] Other 12-12-2021 COVID-19 Pfizer Edwin kurtz Other [facility] Other 12-12-2021 COVID-19 Vaccine Pfi zer - Documentation Purposes Only Edwin Izquierdo Other [facility] Other 07-21-2021 influenza virus vaccine, split virus (incl. purified surface antigen) Edwin Izquierdo Other [facility] Other 05-22-2021 COVID-19 Vaccine Pfi zer - Documentation Purposes Only Edwin Izquierdo Other [facility] Other 10-08-2020 COVID-19 Vaccine Pfi zer - Documentation Purposes Only Edwin Izquierdo Other [facility] Other 09-17-2020 COVID-19 Vaccine Moderna - Documentation Purposes Only Edwin Izquierdo Other [facility] Other 09-17-2020 COVID-19 Vaccine Pfi zer - Documentation Purposes Only Edwin Izquierdo Other [facility] Other 04-30-2020 influenza virus vaccine, split virus (incl. purified surface antigen) Edwin Izquierdo Other [facility] Other 05-18-2019 pneumococcal polysaccharide vaccine, 23 valent Edwin Ball Other [facility] Other 05-01-2018 pneumococcal polysaccharide vaccine, 23 valent Edwin Ball Other [facility] Other 08-02-2017 diphtheria, tetanus toxoids and acellular pertussis vaccine, unspecified formulation Edwin Izquierdo Other [facility] Other 06-05-2015 pneumococcal conjuga te vaccine, 13 valent Edwin Ball Other [facility] Other 06-04-2015 pneumococcal conjuga te vaccine, 13 valent Edwin Ball Other [facility] Other Payers Date Payer Category Payer Self-pay 2023 Private Health Insurance [id number] 2022 Medicare 2022 Private Health Insurance 1958 Medicare [id number] 2.1 [id number] 1959 Private Health Insurance CLI [id number] 1945 Unknown [id number] 2.16.84 [id number] 1945 Unknown [id number] 2.16.84 [id number] 1945 Unknown [id number] 2.16.84 [id number] 1945 Unknown [id number] 2.16. [id number] 1945 Unknown [id number] 2.16. [id number] 1945 Unknown [id number] 2.16. [id number] 1945 Unknown [id number] 2.16.84 [id number] 1945 Unknown [id number] 2.16.84 [id number] 1945 Unknown [id number] 2.16.840 .[id number] Unknown [id number] 2.16.8 [id number] Social History Date Type Detail Facility Sex Assigned At [facility] Other Start: 1945 Sex Assigned At Female [facility] Clinical Notes 10-19-2022 to 10-14-2023 Note Date & Type Note Facility 10-14-2023 Evaluation note Encounter Date Diagnosis Assessment Notes Sep, Acute bilateral thoracic back pain (ICD-10 - M54.6) [facility] Other [id number] Evaluation note* Encounter Date Diagnosis Assessment Notes [...] use, the patient reduces the risk for MO, CVA, HTN, cardiac dysrhythmias and sudden cardiac [...] smoker would recommend repeat in 12 months. [facility] Other 12-14-2023 Evaluation note* Encounter Date Diagnosis Assessment Notes Treatment Notes Treatment Clinical Notes Jul, Restrictive lung disease (ICD-10 - J98.4) [facility] Other 11-28-2023 Evaluation note* Encounter Date Diagnosis [...] Send for COVID PCR - results negative [facility] Other 10-25-2023 Evaluation note* Encounter Date Diagnosis Assessment Notes Treatment Notes Treatment Clinical Notes May, Age-related osteoporosis without current pathological fracture (ICD-10 - M81.0) [facility] Other 10-19-2023 Evaluation note* Encounter Date Diagnosis Assessment Notes Treatment Notes Treatment Clinical Notes May, Acute bilateral thoracic back pain (ICD-10 - M54.6) [facility] Other 10-18-2023 Evaluation note* Encounter Date Diagnosis [...] index [BMI] 34.0-34.9, adult (ICD-10 - Z68.34) [facility] Other 10-13-2023 Evaluation note* Encounter Date Diagnosis Assessment Notes Treatment Notes Treatment Clinical Notes May, Simple chronic bronchitis (ICD-10 - J41.0) Continue LABA/ICS Use DIMIRTI as needed for cough/wheezing. Control allergies and GERD symptoms. Weight loss May, Restrictive lung disease (ICD-10 - J98.4) Weight loss important. Avoid exposure to dust, smoke and allergens. Continue treatment for DUSTIN Refer to Projects Manager for evaluation and treatment May, DUSTIN (obstructive sle ep apnea) (ICD-10 - G47.33) This patient is aware of the benefits associated with DUSTIN: With continued use, the patient reduces the risk for MO, CVA, HTN, cardiac dysrhythmias and sudden cardiac [...] continue exercise to achieve/maintain a normal BMI. [facility] Other 08-31-2023 Evaluation note* Encounter Date Diagnosis Assessment Notes Treatment Notes Treatment Clinical Notes Mar, Chronic bronchitis, simple (ICD-10 - J41.0) [facility] Other 08-30-2023 Evaluation note* Encounter Date Diagnosis Assessment Notes Treatment Notes Treatment Clinical Notes Mar, Chronic bronchitis, simple (ICD-10 - J41.0) [facility] Other 08-30-2023 Evaluation note* Encounter Date Diagnosis Assessment Notes Treatment Notes Treatment Clinical Notes Mar, Chronic bronchitis, simple (ICD-10 - J41.0) Mar, DOUGLAS (dyspnea on exertion) (ICD-10 - R06.09) [facility] Other 08-28-2023 Evaluation note* Encounter Date Diagnosis Assessment Notes Treatment Notes Treatment Clinical Notes Mar, Pulmonary nodule (ICD-10 - R91.1) [facility] Other 08-22-2023 Evaluation note* Encounter Date Diagnosis Assessment Notes Treatment Notes Treatment Clinical Notes Mar, Pulmonary nodule (ICD-10 - R91.1) [facility] Other 08-22-2023 Evaluation note* Encounter Date Diagnosis [...] [BMI ] 34.0-34.9, adult (ICD-10 - Z68.34) [facility] Other 08-17-2023 Evaluation note* Encounter Date Diagnosis Assessment Notes Treatment Notes Treatment Clinical Notes Mar, Acute bilateral low back pain without sciatica (ICD-10 - M54.50) [facility] Other 08-08-2023 Evaluation note* Encounter Date Diagnosis [...] 3 mo as needed. Continue weight loss [facility] Other 04-09-2023 Evaluation note* Encounter Date Diagnosis Assessment Notes Treatment Notes Treatment Clinical Notes Nov, Obstructive sleep apnea (adult) (pediatric) (ICD-10 - G47.33) AHI 34, CPAP14, [facility] Other 04-06-2023 Evaluation note* Encounter Date Diagnosis [...] use, the patient reduces the risk for MO, CVA, HTN, cardiac dysrhythmias and sudden cardiac [...] High risk medication use (ICD-10 - Z79.899) [facility] Other 03-13-2023 Evaluation note* Encounter Date Diagnosis Assessment Notes Treatment Notes Treatment Clinical Notes Oct, Acute non-recurrent maxillary sinusitis (ICD-10 - J01.00) Instructed to use Flonase NS for congestion, Tessalon for cough, Tylenol for pain and fever. Oct, Acute cough (ICD-10 - R05.1) Head upright, push fluids and Tessalon perles [facility] Other 02-28-2023 Evaluation note* Encounter Date Diagnosis Assessment Notes Treatment Notes Treatment Clinical Notes Sep, Pure hypercholestero lemia (ICD-10 - E78.00) [facility] Other Evaluation noteNo InformationNort [employer] Other Evaluation noteNo assessment information available [facility] Work Phone: [facility] general Narrative - Reported* Type Description Date Medical History Essential hypertension Medical History ASHD (arteriosclerotic heart dis ease) Medical History Chronic venous insufficiency Medical History Chronic bronchitis, simple Medical History High cholesterol Medical History Lumbar spondylosis Medical History Obesity (BMI 30-39.9) Medical History Obstructive sleep apnea (adult) (pediatric) [facility] Other [facility] general Narrative - Reported* Type Description Date [...] COLONSCOPY 2018 Hospitalization History SEE SURGICAL HX [facility] Other [facility] general Narrative - Reported* Type Description Date [...] COLONSCOPY 2018 Hospitalization History SEE SURGICAL HX [facility] Other [facility] general Narrative - Reported* Type Description Date [...] History TONSILLECTOMY Surgical History D&C Surgical History [facility] Surgical History CYSTOSCOPY Surgical History URETHRAL DILATION 2005 Surgical History COLONSCOPY 2018 Hospitalization History SEE SURGICAL HX [facility] Other Reason for referral (narrative)* Reason Referral for COPD an d RLD Diagnosis 1 Restrictive lung dis ease (J98.4) Diagnosis 2 Chronic bronchitis, simple (J41.0) Diagnosis 3 Pulmonary nodule (R9 1.1) Diagnosis 4 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 Obesity may contribute to respiratory complaints. Clinical Notes Labs, CT, PFT [employer] [facility] [employer] Other Reason for referral (narrative)* Reason Referral for persist ent thoracolumbar spine pain Diagnosis 1 Acute bilateral thor acic back pain (M54.6) Diagnosis 2 Lumbar spondylosis ( M47.816) Diagnosis 3 Age-related osteopor osis without current pathological fracture (M81.0) Referral Organization [facility] [employer] Referring Provider First Name Edwin Referring Provider Last Name Marques Referring Provider Specialty Internal Nc dicine Referred Organization [facility] Referred Provider Freddie Cotton Referred Address [address] [place], [place],[address] Referred Provider Specialty Pain Medicin e Referral Priority Routine General Notes Patient w/ known deg enerative arthritis of the spine w/ persistent moderate to severe thoracolumbar spine pain w/ paraspinal muscle spasms. Completed PT w/ some temporary improvement. Stretching, Tylenol and Tramadol helping w/ the pain. Refer for alternative treatment for persistent back pain. [facility] Other Summary Purpose Family History No Family [...] ed section and content) Medication QuestionCongestio n [phone] ATBwellnessNo InformationCPAP Equipment?4 month follow upBack SpasmsNo InformationXR resultsreferral for PTNo InformationNo InformationNo InformationCT resultsDifferent InhalerPFT resultstesting resultsback painMedicationNo InformationDexa [phone] cold/sore throatNo Information4 month Follow upHR-AtenololUpdateNo Information INFORMATION SOURCE (unrecogn ized section and content) DATE CREATED AUTHOR 01/01/2023 [facility] DATE CREATED AUTHOR AUTHOR'S ORGANIZ ATION 05/28/2023 [facility] DATE CREATED AUTHOR AUTHOR'S ORGANIZ ATION 08/05/2023 [facility] DATE CREATED AUTHOR AUTHOR'S ORGANIZ ATION 01/17/2024 [facility] EPIC Care Teams (unrecognized [...] BE BASED ON THE PRIMARY CLINICAL RECORDS. [employer] [facility]. provides no warranty or guarantee of the accuracy or completeness of information in this document.
[2024-01-31 10:10] LABS: Anion Gap 12.1; BUN Creatinine Ratio 21.7; Calcium 9.3 mg/dL (8.5-10.1); Carbon Dioxide 26.6 mmol/L (21.0-32.0); Chloride 106 mmol/L (98-107); Estimated GFR (African America >60 (>=60); Estimated GFR (Non-African Ame >60 (>=60); Glucose 117 mg/dL (74-106); Potassium 3.7 mmol/L (3.5-5.1); Sodium 141 mmol/L (136-145); Thyroid Stimulating Hormone 0.608 uIU/mL (0.358-3.740)
[2024-02-01 09:12] LABS: Triiodothyronine (T3) 118 ng/dL (71-180)
== END 2024-01-31 09:35 | disposition home or self-care (01) ==
LOC: LAB 09:35
PROVIDERS: PCP Internal Medicine; Visit Provider Internal Medicine
DX: E87.6 Hypokalemia (principal); I25.10 Atherosclerotic heart disease of native coronary artery without angina pectoris; R79.89 Other specified abnormal findings of blood chemistry
CPT/HCPCS: 36415; 80048; 84439; 84443; 84480

== ENCOUNTER 2024-04-03 13:51 | Outpatient (OUT) | payer MEDICARE, SELFPAY ==
--- NOTE | 2024-04-03 13:56 | CT_ITS ---
[address] [address] Patient Name: MARIA ELENA ALLEN MRN: [id number] date: 1945 Sex: F Assigned Patient Location: CT Current Patient Location: Accession/Order Number: [id number] Exam Date: 04/03/2024 14:10 Report Date: 04/04/2024 13:06 At the request of: ANTOINE IZQUIERDO Procedure: CT chest wo con INDICATION: Lung Nodule R91.1 COMPARISON: Noncontrast CT of the chest 04/19/2023 TECHNIQUE: CT scan of the chest was performed IV contrast. CT dose reduction technique was used, including Automated Exposure Control. FINDINGS: Images degraded by motion artifact Cardiomegaly. No pericardial effusion. Coronary artery calcification and calcified atherosclerotic change within the aorta. Prominent mediastinal lymph nodes, the largest a subcarinal node 1.3 cm short axis. No axillary lymphadenopathy. Focal areas of peripheral bronchiolectasis with stable peripheral honeycombing. Diffuse interstitial prominence with areas of increased reticulation. No pleural effusion or pneumothorax. Stable 4 mm right middle lobe nodule. Small sliding hiatal hernia. No acute findings in the upper abdomen. Spondylosis thoracic spine. No acute fracture. CT/CT chest wo con IMPRESSION: 1. Stable 4 mm right middle lobe nodule. 2. Emphysematous change with pulmonary fibrosis. 3. Mild mediastinal lymphadenopathy. Electronically authenticated by: ESTEE HENRANDEZ Date: 04/04/2024 13:06
--- OUTSIDE RECORDS SUMMARY | 2024-04-03 14:11 | XMS_ITS | CCD ---
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 Service Manager Name Role Phone Edwin Izquierdo Unavailable MARQUES, [...] Unavailable Marques, DO Pineda Primary Care Provider [phone] DO Edwin Izquierdo Attending Provider Edwin Izqiuerdo Attending Unavailable Marques, Edwin Primary Care Unavailable Edwin Izquierdo Admitting Unavailable Ailin CHO, Raphael Luna Attending Unavailable Ailin CHO, Raphael Luna Attending Unavailable Ailin CHO, Raphael Luna Attending Unavailable ANGEL CAMPOS Attending Unavailable ANGEL CAMPOS Attending Unavailable YANY MARTINEZ Attending Unavailable Allergies Allergy Classification Reported Allergen(s) Allergy Type Date of Onset Reaction(s) Facility (7 sources) Cefaclor; Translations: [Ceclor] Drug Allergy Unknown [facility] Repository (20 sources) Ciprofloxacin Drug Allergy Unknown [facility] Other (1 source) Ciprofloxacin Drug Allergy [facility] Repository (1 source) Robafen DM Cough-Chest Congest Drug allergy (disorder) [facility] Repository (20 sources) Ceclor *CEPHALOSPORINS* Propensity to adverse reactions Unknown [facility] Other Medications Current Medications Medication Drug Class(es) Dates Sig (Normalized) Sig (Original) [id number] 200 actuat albuterol 0.09 mg/actuat metered dose [...] Coronary arteriosclerosis; 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 Admission #: [id number] Family : Order #: [id number] CLICK HERE TO VIEW EXAM RADIOLOGY REPORT [...] Treatments None Family Cancers None LOCATION: [facility] BREAST COMPOSITION: Scattered areas fibroglandular density. FINDINGS: [...] MD on 05/26/2022 at 07:48 Normal [facility] CBC AUTO DIFFon 03-27-2022 BASO # 0.0 103/ul Normal 0.0-0.1 [facility] Comment on above: Performed By: #### C BC #### [facility] Laboratory [address] [address] [address] Eduardo Segura Basophils/100 WBC (Bld) 0.3 % Normal 0.2-2.0 [facility] Comment on above: Performed By: #### C BC #### [facility] Laboratory [address] [place] [address] Dr. Eduardo Segura EO # 0.3 103/ul Normal 0.0-0.7 [facility] Comment on above: Performed By: #### C BC #### [facility] Laboratory [address] [place] [address] Dr. Eduardo Segura Eosinophils/100 WBC (Bld) 4.3 % Normal 0.9-7.0 [facility] Comment on above: Performed By: #### C BC #### [facility] Laboratory [address] [place] [address] Dr. Eduardo Segura Erythrocyte distribution width (RBC) [Ratio] 13.7 % Normal 11.0-15.0 [facility] Comment on above: Performed By: #### C BC #### [facility] Laboratory [address] [place] [address] Dr. Eduardo Segura Hematocrit (Bld) [Volume fraction] 42.6 % Normal 36.0-48.0 [facility] Comment on above: Performed By: #### C BC #### [facility] Laboratory [address] [place] [address] Dr. Eduardo Segura Hemoglobin (Bld) [Mass/Vol] 14.1 g/dL Normal 12.0-16.0 [facility] Comment on above: Performed By: #### C BC #### [facility] Laboratory [address] [place] [address] Dr. Eduardo Segura IG # 0.02 10e3/ul Normal 0.00-0.03 [facility] Comment on above: Performed By: #### C BC #### [facility] Laboratory [address] [place] [address] Dr. Eduardo Segura IG % 0.3 % Normal 0.0-0.5 [facility] Comment on above: Performed By: #### C BC #### [facility] Laboratory [address] [place] [address] Dr. Eduardo Segura LYMPH # 2.3 103/ul Normal 1.2-3.8 [facility] Comment on above: Performed By: #### C BC #### [facility] Laboratory [address] [place] [address] Dr. Eduardo Segura Lymphocytes/100 WBC (Bld) 31.9 % Normal 20.5-60.0 [facility] Comment on above: Performed By: #### C BC #### [facility] [address] [place] [address] Dr. Eduardo Segura MANUAL DIFF REQ NO Normal [facility] Comment on above: Performed By: #### C BC #### [facility] Laboratory [address] [place] [address] Dr. Eduardo Segura MCH (RBC) [Entitic mass] 31.1 pg Normal 26.7-34.0 [facility] Comment on above: Performed By: #### C BC #### [facility] Laboratory [address] [place] [address] Dr. Eduardo Segura MCHC (RBC) [Mass/Vol] 33.1 g/dL Normal 29.9-35.2 [facility] Comment on above: Performed By: #### C BC #### [facility] Laboratory [address] [place] [address] Dr. Eduardo Segura MCV (RBC) [Entitic vol] 94.0 fL Normal 81.0-99.0 [facility] Comment on above: Performed By: #### C BC #### [facility] Laboratory [address] [place] [address] Dr. Eduardo Segura MONO # 0.6 103/ul Normal 0.3-0.8 [facility] Comment on above: Performed By: #### C BC #### [facility] Laboratory [address] [place] [address] Dr. Eduardo Segura Monocytes/100 WBC (Bld) 7.7 % Normal 1.7-12.0 [facility] Comment on above: Performed By: #### C BC #### [facility] Laboratory [address] [place] [address] Dr. Eduardo Segura NEUT # 4.0 103/ul Normal 1.4-6.5 [facility] Comment on above: Performed By: #### C BC #### [facility] Laboratory [address] [address] [address] Eduardo Segura Neutrophils/100 WBC (Bld) 55.5 % Normal 43.0-75.0 [facility] Comment on above: Performed By: #### C BC #### [facility] Laboratory [address] [place] [address] Dr. Eduardo Segura Platelet mean volume (Bld) [Entitic vol] 10.2 fL Normal 9.5-13.5 [facility] Comment on above: Performed By: #### C BC #### [facility] [address] [place] [address] Dr. Eduardo Segura PLT 286 103/ul Normal 150-450 [facility] Comment on above: Performed By: #### C BC #### [facility] [address] [place] [address] Dr. Eduardo Segura RBC 4.53 106/ul Normal 4.20-5.40 [facility] Comment on above: Performed By: #### C BC #### [facility] [address] [place] [address] Dr. Eduardo Segura WBC 7.2 103/ul Normal 4.0-11.0 [facility] Comment on above: Performed By: #### C BC #### [facility] [address] [place] [address] Dr. Eduardo Segura GLYCOHEMOGLOBIN A1Con 2021 ADA RECOMMENDATION SEE BELOW Normal [facility] Comment on above: Result Comment: ADA RECOMMENDED LIMIT 4.0 - 6.0 ADA THERAPEUTIC TARGET < 7.0 ACTION SUGGESTED > 7.0 Performed By: #### A 1C #### [facility] [address] [place] [address] Dr. Eduardo Segura Glucose [Mass/Vol] 134 mg/dL Normal [facility] Comment on above: Performed By: #### A 1C #### [facility] [address] [place] [address] Dr. Eduardo Segura HbA1c (Bld) [Mass fraction] 6.3 % Critically high 4.5-6.2 [facility] Comment on above: Performed By: #### A 1C #### [facility] [address] [address] [address] Eduardo Segura LIPID PROFILEon 03-27-2022 CHOL-HDL RATIO NORM SEE BELOW Normal [facility] Comment on above: Result Comment: 3.3 - 4.4 LOW RISK 4.4 - 7.1 AVERAGE RISK 7.1 - 11.0 MODERATE RISK >11.0 HIGH RISK Performed By: #### B MP, LIPID, ALT #### [facility] [address] [address] [address] Eduardo Segura Cholesterol [Mass/Vol] 154 mg/dL Normal <=200 [facility] Comment on above: Performed By: #### B MP, LIPID, ALT #### [facility] [address] [address] [address] Eduardo Segura Cholesterol in HDL [Mass/Vol] 60 mg/dL Normal 40-60 [facility] Comment on above: Performed By: #### B MP, LIPID, ALT #### [facility] [address] [address] [address] Eduardo Segura Cholesterol in LDL [Mass/Vol] 75.4 mg/dL Normal [facility] Comment on above: Performed By: #### B MP, LIPID, ALT #### [facility] [address] [address] [address] Eduardo Segura Cholesterol.total/Cho lesterol in HDL [Mass ratio] 2.6 {ratio} Normal [facility] Comment on above: Performed By: #### B MP, LIPID, ALT #### [facility] [address] [address] [address] Eduardo Segura HDL NORMAL > or = 60 mg/dl - LOW CARDIOVASCULAR RISK <40 mg/dl - HIGH CARDIOVASCULAR RISK Normal [facility] Comment on above: Performed By: #### B MP, LIPID, ALT #### [facility] [address] [place] [address] Dr. Eduardo Segura LDL CALC NORMAL SEE BELOW Normal [facility] Comment on above: Result Comment: <100 mg/dl OPTIMAL 100 - 129 mg/dl NEAR OR ABOVE OPTIMAL 130 - 159 mg/dl BORDERLINE HIGH 160 - 189 mg/dl HIGH >190 mg/dl VERY HIGH Performed By: #### B MP, LIPID, ALT #### [facility] [address] [place] [address] Dr. Eduardo Segura Triglyceride [Mass/Vol] 93 mg/dL Normal <=150 [facility] Comment on above: Performed By: #### B MP, LIPID, ALT #### [facility] [address] [place] [address] Dr. Eduardo Segura VLDL CALC 18.6 mg/dL Normal [facility] Comment on above: Performed By: #### B MP, LIPID, ALT #### [facility] [address] [address] [address] Eduardo Segura PROF CHEM 8 (BAS METB)on Anion gap [Moles/Vol] 15.0 mmol/L Normal [facility] Comment on above: Performed By: #### B MP, LIPID, ALT #### [facility] [address] [place] [address] Dr. Eduardo Segura Calcium [Mass/Vol] 9.8 mg/dL Normal 8.5-10.1 [facility] Comment on above: Performed By: #### B MP, LIPID, ALT #### [facility] [address] [place] [address] Dr. Eduardo Segura Chloride [Moles/Vol] 105 mmol/L Normal 98-107 [facility] Comment on above: Performed By: #### B MP, LIPID, ALT #### [facility] [address] [place] [address] Dr. Eduardo Segura CO2 [Moles/Vol] 25.2 mmol/L Normal 21.0-32.0 [facility] Comment on above: Performed By: #### B MP, LIPID, ALT #### [facility] [address] [place] [address] Dr. Eduardo Segura Creatinine [Mass/Vol] 0.77 mg/dL Normal 0.55-1.02 [facility] Comment on above: Performed By: #### B MP, LIPID, ALT #### [facility] [address] [place] [address] Dr. Eduardo Segura EGFR-AF AUSTRALIAN >60 Normal >=60 [facility] Comment on above: Performed By: #### B MP, LIPID, ALT #### [facility] [address] [place] [address] Dr. Eduardo Segura EGFR-NON AF AUSTRALIAN >60 Normal >=60 [facility] Comment on above: Performed By: #### B MP, LIPID, ALT #### [facility] [address] [place] [address] Dr. Eduardo Segura Glucose [Mass/Vol] 142 mg/dL Critically high 74-106 T [facility] Comment on above: Performed By: #### B MP, LIPID, ALT #### [facility] [address] [place] [address] Dr. Eduardo Segura Potassium [Moles/Vol] 4.2 mmol/L Normal 3.5-5.1 [facility] Comment on above: Performed By: #### B MP, LIPID, ALT #### [facility] [address] [place] [address] Dr. Eduardo Segura Sodium [Moles/Vol] 141 mmol/L Normal 136-145 [facility] Comment on above: Performed By: #### B MP, LIPID, ALT #### [facility] [address] [place] [address] Dr. Eduardo Segura Urea nitrogen [Mass/Vol] 17.0 mg/dL Normal 7.0-18.0 [facility] Comment on above: Performed By: #### B MP, LIPID, ALT #### [facility] [address] [place] [address] Dr. Eduardo Segura Urea nitrogen/Creatinine [Mass ratio] 22.1 mg/mg Normal [facility] Comment on above: Performed By: #### B MP, LIPID, ALT #### [facility] [address] [place] [address] Dr. Eduardo Segura [facility] 03-27-2022 ALT [Catalytic activity/Vol] 20 U/L Normal 14-59 [facility] Comment on above: Performed By: #### B MP, LIPID, ALT #### [facility] [address] [place] [address] Dr. Eduardo Segura Vital Signs Date Time Vital Sign Value Performing Clinician Facility 08-09-2023 15:00-0500 Body height 165.1 cm Edwin Ball Other [facility] Other 08-09-2023 15:00-0500 Body mass index (BMI) [Ratio] 32.88 kg/m2 Edwin Ball Other [facility] Other 08-09-2023 15:00-0500 Body weight 89.63 kg Edwin Ball Other [facility] Other 08-09-2023 15:00-0500 Diastolic blood pressure 94 mm[Hg] Edwin Ball Other [facility] Other 08-09-2023 15:00-0500 Respiratory rate 12 /min Edwin Ball Other [facility] Other 08-09-2023 15:00-0500 Systolic blood pressure 134 mm[Hg] Edwin Ball Other [facility] Other 06-08-2023 14:15-0400 Body height 165.1 cm Edwin Ball Other [facility] Other 06-08-2023 14:15-0400 Body mass index (BMI) [Ratio] 33.71 kg/m2 Edwin Ball Other [facility] Other 06-08-2023 14:15-0400 Body weight 91.9 kg Edwin Ball Other [facility] Other 06-08-2023 14:15-0400 Diastolic blood pressure 82 mm[Hg] Edwin Ball Other [facility] Other 06-08-2023 14:15-0400 Respiratory rate 12 /min Edwin Ball Other [facility] Other 06-08-2023 14:15-0400 Systolic blood pressure 128 mm[Hg] Edwin Ball Other [facility] Other 06-03-2023 11:30-0400 Body height 165.1 cm Edwin Ball Other [facility] Other 06-03-2023 11:30-0400 Body mass index (BMI) [Ratio] 33.71 kg/m2 Edwin Ball Other [facility] Other 06-03-2023 11:30-0400 Body weight 91.9 kg Edwin Ball Other [facility] Other 06-03-2023 11:30-0400 Diastolic blood pressure 80 mm[Hg] Edwin Ball Other [facility] Other 06-03-2023 11:30-0400 Respiratory rate 12 /min Edwin Ball Other [facility] Other 06-03-2023 11:30-0400 Systolic blood pressure 130 mm[Hg] Edwin Ball Other [facility] Other 04-12-2023 10:45-0400 Body height 165.1 cm Edwin Ball Other [facility] Other 04-12-2023 10:45-0400 Body mass index (BMI) [Ratio] 34.61 kg/m2 Edwin Ball Other [facility] Other 04-12-2023 10:45-0400 Body weight 94.35 kg Edwin Ball Other [facility] Other 04-12-2023 10:45-0400 Diastolic blood pressure 74 mm[Hg] Edwin Ball Other [facility] Other 04-12-2023 10:45-0400 Respiratory rate 20 /min Edwin Ball Other [facility] Other 04-12-2023 10:45-0400 Systolic blood pressure 116 mm[Hg] Edwin Ball Other [facility] Other 03-29-2023 10:30-0400 Body height 165.1 cm Edwin Ball Other [facility] Other 03-29-2023 10:30-0400 Body mass index (BMI) [Ratio] 34.48 kg/m2 Edwin Ball Other [facility] Other 03-29-2023 10:30-0400 Body weight 93.99 kg Edwin Ball Other [facility] Other 03-29-2023 10:30-0400 Diastolic blood pressure 70 mm[Hg] Edwin Ball Other [facility] Other 03-29-2023 10:30-0400 Respiratory rate 12 /min Edwin Ball Other [facility] Other 03-29-2023 10:30-0400 Systolic blood pressure 158 mm[Hg] Edwin Ball Other [facility] Other 11-25-2022 11:30-0400 Body height 165.1 cm Edwin Ball Other [facility] Other 11-25-2022 11:30-0400 Body mass index (BMI) [Ratio] 35.61 kg/m2 Edwin Ball Other [facility] Other 11-25-2022 11:30-0400 Body weight 97.07 kg Edwin Ball Other [facility] Other 11-25-2022 11:30-0400 Diastolic blood pressure 76 mm[Hg] Edwin Ball Other [facility] Other 11-25-2022 11:30-0400 Respiratory rate 12 /min Edwin Ball Other [facility] Other 11-25-2022 11:30-0400 Systolic blood pressure 126 mm[Hg] Edwin Ball Other [facility] Other Encounters Encounter Date Encounter Type Care Provider Facility Start: 01-17-2024 End: 01-17-2024 ambulatory ANGEL CAMPOS Not Available Start: 10-14-2023 End: 10-14-2023 ambulatory Edwin Ball Other [facility] Other Start: 10-14-2023 Telephone encounter Edwin Ball [facility] Start: 09-19-2023 End: 09-19-2023 ambulatory ANGEL CAMPOS Not Available Start: 08-12-2023 End: 08-12-2023 ambulatory Edwin Ball Other [facility] Other Start: 08-12-2023 Telephone encounter Edwin Ball [facility] Start: 08-11-2023 End: 08-11-2023 ambulatory Edwin Ball Other [facility] Other Start: 08-11-2023 Telephone encounter Edwin Ball [facility] Start: 08-09-2023 End: 08-09-2023 ambulatory Edwin Ball Other [facility] Other Start: 08-09-2023 Office outpatient vi sit 25 minutes Edwin Ball [facility] Start: 08-04-2023 End: 08-04-2023 ambulatory Edwin Ball Other [facility] Other Start: 08-04-2023 Telephone encounter Edwin Izquierdo [facility] Start: 08-02-2023 End: 08-02-2023 ambulatory YANYVALDEMAR MARTINEZ Not Available Start: 07-25-2023 End: 07-26-2023 ambulatory Raphael Parisi MD Facility:[facility] Start: 07-19-2023 End: 07-19-2023 ambulatory Edwin Izquierdo Other [facility] Other Start: 07-19-2023 Office outpatient vi sit 15 minutes Edwin Izquierdo [facility] Start: 06-20-2023 End: 06-21-2023 ambulatory Raphael Parisi MD Facility:[facility] Start: 06-16-2023 End: 06-16-2023 ambulatory Edwin Izquierdo Other [facility] Other Start: 06-16-2023 Telephone encounter Edwin Izquierdo [facility] Start: 06-15-2023 End: 06-15-2023 ambulatory Edwin Izquierdo Other [facility] Other Start: 06-15-2023 Telephone encounter Edwin Izquierdo [facility] Start: 06-13-2023 End: 06-14-2023 ambulatory Raphale Parisi MD Facility:[facility] Start: 06-09-2023 End: 06-09-2023 ambulatory Edwin Izquierdo Other [facility] Other Start: 06-09-2023 Telephone encounter Edwin Izquierdo [facility] Start: 06-08-2023 End: 06-08-2023 ambulatory Edwin Izquierdo Other [facility] Other Start: 06-08-2023 Office outpatient vi sit 15 minutes Edwin Izquierdo [facility] Start: 06-03-2023 End: 06-03-2023 ambulatory Edwin Izquierdo Other [facility] Other Start: 06-03-2023 Office outpatient vi sit 25 minutes Edwin Ball [facility] Start: 05-25-2023 End: 05-25-2023 ambulatory Edwin Ball Other [facility] Other Start: 05-25-2023 Telephone encounter Edwin Ball [facility] Start: 05-23-2023 End: 05-23-2023 ambulatory Edwin Ball Facility:[facility] Start: 05-23-2023 End: 05-23-2023 ambulatory DO Edwin Ball Work Phone: [facility] Work Phone: Start: 05-23-2023 End: 05-23-2023 Patient encounter procedure DO Edwin Ball Work Phone: [facility] Work Phone: Start: 04-21-2023 End: 04-21-2023 ambulatory Edwin Ball Other [facility] Other Start: 04-21-2023 Telephone encounter Edwin Ball [facility] Start: 04-20-2023 End: 04-20-2023 ambulatory Edwin Ball Other [facility] Other Start: 04-20-2023 Telephone encounter Edwin Ball [facility] Start: 04-18-2023 End: 04-18-2023 ambulatory Edwin Ball Other [facility] Other Start: 04-18-2023 Telephone encounter Edwin Ball [facility] Start: 04-12-2023 End: 04-12-2023 ambulatory Edwin Ball Other [facility] Other Start: 04-12-2023 Office outpatient vi sit 15 minutes Edwin Ball [facility] Start: 04-12-2023 Telephone encounter Edwin Ball [facility] Start: 04-07-2023 End: 04-07-2023 ambulatory Edwin Ball Other [facility] Other Start: 04-07-2023 Telephone encounter Edwin Izquierdo [facility] Start: 03-29-2023 End: 03-29-2023 ambulatory Edwin Izquierdo Other [facility] Other Start: 03-29-2023 Office outpatient vi sit 15 minutes Edwin Izquierdo [facility] Start: 01-08-[address] EDWIN IZQUIERDO Facili ty:[facility] Start: 11-30-2022 End: 11-30-2022 ambulatory Edwin Izquierdo Other [facility] Other Start: 11-30-2022 Telephone encounter Edwin Izquierdo [facility] Start: 11-28-2022 End: 11-28-2022 ambulatory Edwin Izquierdo Other [facility] Other Start: 11-28-2022 Telephone encounter Edwin Izquierdo [facility] Start: 11-25-2022 End: 11-25-2022 ambulatory Edwin Izquierdo Other [facility] Other Start: 11-25-2022 Patient encounter procedure Edwin Izquierdo [facility] Start: 11-08-2022 End: 11-08-2022 ambulatory Edwin Izquierdo Other [facility] Other Start: 11-08-2022 Telephone encounter Edwin Izquierdo [facility] Start: 11-01-2022 End: 11-01-2022 ambulatory Edwin Izquierdo Other [facility] Other Start: 11-01-2022 Office outpatient vi sit 15 minutes Edwin Ball [facility] Start: 10-19-2022 End: 10-19-2022 ambulatory Edwin Izquierdo Other [facility] Other Start: 10-19-2022 Telephone encounter Edwin Izquierdo [facility] Start: 07-22-2022 Adult health examination Edwin Izquierdo Other [facility] Other Start: 05-25-2022 End: 05-26-[address] EDWIN IZQUIERDO Facility:[facility] Start: 03-27-2022 End: 03-28-[address] EDWIN IZQUIERDO Facility:[facility] Procedures Date Procedure Procedure Detail Performing Clinician Start: 05-01-2018 Screening for malign ant neoplasm of colon Edwin Izquierdo Other Start: 08-01-2017 Screening for osteoporosis Edwin Marques Other Depression screening Ana Izquierdo Other Screening for malign ant neoplasm of breast Edwin Marques Other Screening for malign ant neoplasm of skin Edwin Izquierdo Other Immunizations Immunization Date Immunization Notes Care Provider Arley lezama 07-03-2022 influenza, high dose seasonal, preservative-free Edwin Marques Other [employer] Other 06-23-2022 influenza, high dose seasonal, preservative-free Edwin Izquierdo Other [employer] Other 05-18-2022 COVID-19 Pfizer (bivalent) Edwin Izquierdo Other [employer] Other 12-12-2021 COVID-19 Pfizer Edwin Huggins jerardo Other [employer] Other 12-12-2021 COVID-19 Vaccine Pfi zer - Documentation Purposes Only Edwin Izquierdo Other [employer] Other 07-21-2021 influenza virus vaccine, split virus (incl. purified surface antigen) Edwin Izquierdo Other [employer] Other 05-22-2021 COVID-19 Vaccine Pfi zer - Documentation Purposes Only Edwin Izquierdo Other [employer] Other 10-08-2020 COVID-19 Vaccine Pfi zer - Documentation Purposes Only Edwin Izquierdo Other [employer] Other 09-17-2020 COVID-19 Vaccine Moderna - Documentation Purposes Only Edwin Izquierdo Other [employer] Other 09-17-2020 COVID-19 Vaccine Pfi zer - Documentation Purposes Only Edwin Izquierdo Other [employer] Other 04-30-2020 influenza virus vaccine, split virus (incl. purified surface antigen) Edwin Izquierdo Other [employer] Other 05-18-2019 pneumococcal polysaccharide vaccine, 23 valent Edwin Ball Other [employer] Other 05-01-2018 pneumococcal polysaccharide vaccine, 23 valent Edwin Ball Other [employer] Other 08-02-2017 diphtheria, tetanus toxoids and acellular pertussis vaccine, unspecified formulation Edwin Izquierdo Other [employer] Other 06-05-2015 pneumococcal conjuga te vaccine, 13 valent Edwin Ball Other [employer] Other 06-04-2015 pneumococcal conjuga te vaccine, 13 valent Edwin Ball Other [employer] Other Payers Date Payer Category Payer Self-pay 2023 Private Health Insurance [id number] 2022 Medicare 2022 Private Health Insurance 1958 Medicare [id number] 2.1 [id number] 1959 Private Health Insurance CLI [id number] 1945 Unknown [id number] 2.16.84 [id number] 1945 Unknown [id number] 2.16.84 0.1.517575.3.579.2.593 1945 Unknown [id number] 2.16.84 0.1.663049.3.579.2.593 1945 Unknown [id number] 2.16. 840.1.065812.3.579.2.196 1945 Unknown [id number] 2.16. 840.1.998128.3.579.2.196 1945 Unknown [id number] 2.16. 840.1.480726.3.579.2.196 1945 Unknown [id number] 2.16.84 0.1.546054.3.579.2.1259 1945 Unknown [id number] 2.16.84 0.1.027619.3.579.2.1259 1945 Unknown [id number] 2.16.840 .1.829118.3.579.2.1259 Unknown [id number] 2.16.8 40.1.526437.3.579.2.531 Social History Date Type Detail Facility Sex Assigned At [employer] Other Start: 1945 Sex Assigned At Female [facility] Clinical Notes 10-19-2022 to 10-14-2023 Note Date & Type Note Facility 10-14-2023 Evaluation note Encounter Date Diagnosis Assessment Notes Sep, Acute bilateral thoracic back pain (ICD-10 - M54.6) [facility] [employer] Other [id number] Evaluation note* Encounter Date Diagnosis Assessment Notes [...] use, the patient reduces the risk for AK, CVA, HTN, cardiac dysrhythmias and sudden cardiac [...] smoker would recommend repeat in 12 months. [employer] Other 12-14-2023 Evaluation note* Encounter Date Diagnosis Assessment Notes Treatment Notes Treatment Clinical Notes Jul, Restrictive lung disease (ICD-10 - J98.4) [employer] Other 11-28-2023 Evaluation note* Encounter Date Diagnosis [...] Send for COVID PCR - results negative [employer] Other 10-25-2023 Evaluation note* Encounter Date Diagnosis Assessment Notes Treatment Notes Treatment Clinical Notes May, Age-related osteoporosis without current pathological fracture (ICD-10 - M81.0) [employer] Other 10-19-2023 Evaluation note* Encounter Date Diagnosis Assessment Notes Treatment Notes Treatment Clinical Notes May, Acute bilateral thoracic back pain (ICD-10 - M54.6) [employer] Other 10-18-2023 Evaluation note* Encounter Date Diagnosis [...] index [BMI] 34.0-34.9, adult (ICD-10 - Z68.34) [employer] Other 10-13-2023 Evaluation note* Encounter Date Diagnosis Assessment Notes Treatment Notes Treatment Clinical Notes May, Simple chronic bronchitis (ICD-10 - J41.0) Continue LABA/ICS Use DIMITRI as needed for cough/wheezing. Control allergies and GERD symptoms. Weight loss May, Restrictive lung disease (ICD-10 - J98.4) Weight loss important. Avoid exposure to dust, smoke and allergens. Continue treatment for DUSTIN Refer to Signals Analyst for evaluation and treatment May, DUSTIN (obstructive sle ep apnea) (ICD-10 - G47.33) This patient is aware of the benefits associated with DUSTIN: With continued use, the patient reduces the risk for AK, CVA, HTN, cardiac dysrhythmias and sudden cardiac [...] continue exercise to achieve/maintain a normal BMI. [employer] Other 08-31-2023 Evaluation note* Encounter Date Diagnosis Assessment Notes Treatment Notes Treatment Clinical Notes Mar, Chronic bronchitis, simple (ICD-10 - J41.0) [employer] Other 08-30-2023 Evaluation note* Encounter Date Diagnosis Assessment Notes Treatment Notes Treatment Clinical Notes Mar, Chronic bronchitis, simple (ICD-10 - J41.0) [employer] Other 08-30-2023 Evaluation note* Encounter Date Diagnosis Assessment Notes Treatment Notes Treatment Clinical Notes Mar, Chronic bronchitis, simple (ICD-10 - J41.0) Mar, DOUGLAS (dyspnea on exertion) (ICD-10 - R06.09) [employer] Other 08-28-2023 Evaluation note* Encounter Date Diagnosis Assessment Notes Treatment Notes Treatment Clinical Notes Mar, Pulmonary nodule (ICD-10 - R91.1) [employer] Other 08-22-2023 Evaluation note* Encounter Date Diagnosis Assessment Notes Treatment Notes Treatment Clinical Notes Mar, Pulmonary nodule (ICD-10 - R91.1) [employer] Other 08-22-2023 Evaluation note* Encounter Date Diagnosis [...] [BMI ] 34.0-34.9, adult (ICD-10 - Z68.34) [employer] Other 08-17-2023 Evaluation note* Encounter Date Diagnosis Assessment Notes Treatment Notes Treatment Clinical Notes Mar, Acute bilateral low back pain without sciatica (ICD-10 - M54.50) [employer] Other 08-08-2023 Evaluation note* Encounter Date Diagnosis [...] 3 mo as needed. Continue weight loss [employer] Other 04-09-2023 Evaluation note* Encounter Date Diagnosis Assessment Notes Treatment Notes Treatment Clinical Notes Nov, Obstructive sleep apnea (adult) (pediatric) (ICD-10 - G47.33) AHI 34, CPAP14, [employer] Other 04-06-2023 Evaluation note* Encounter Date Diagnosis [...] use, the patient reduces the risk for AK, CVA, HTN, cardiac dysrhythmias and sudden cardiac [...] High risk medication use (ICD-10 - Z79.899) [employer] Other 03-13-2023 Evaluation note* Encounter Date Diagnosis Assessment Notes Treatment Notes Treatment Clinical Notes Oct, Acute non-recurrent maxillary sinusitis (ICD-10 - J01.00) Instructed to use Flonase NS for congestion, Tessalon for cough, Tylenol for pain and fever. Oct, Acute cough (ICD-10 - R05.1) Head upright, push fluids and Tessalon perles [employer] Other 02-28-2023 Evaluation note* Encounter Date Diagnosis Assessment Notes Treatment Notes Treatment Clinical Notes Sep, Pure hypercholestero lemia (ICD-10 - E78.00) [employer] Other Evaluation noteNo InformationNort valuklik Other Evaluation noteNo assessment information available [facility] Work Phone: [facility] general Narrative - Reported* Type Description Date Medical History Essential hypertension Medical History ASHD (arteriosclerotic heart dis ease) Medical History Chronic venous insufficiency Medical History Chronic bronchitis, simple Medical History High cholesterol Medical History Lumbar spondylosis Medical History Obesity (BMI 30-39.9) Medical History Obstructive sleep apnea (adult) (pediatric) [employer] Other [facility] general Narrative - Reported* Type Description Date [...] COLONSCOPY 2018 Hospitalization History SEE SURGICAL HX [employer] Other [facility] general Narrative - Reported* Type Description Date [...] COLONSCOPY 2018 Hospitalization History SEE SURGICAL HX [employer] Other [facility] general Narrative - Reported* Type Description Date [...] History TONSILLECTOMY Surgical History D&C Surgical History [facility] Surgical History CYSTOSCOPY Surgical History URETHRAL DILATION 2005 Surgical History COLONSCOPY 2018 Hospitalization History SEE SURGICAL HX [employer] Other Reason for referral (narrative)* Reason Referral for COPD an d RLD Diagnosis 1 Restrictive lung dis ease (J98.4) Diagnosis 2 Chronic bronchitis, simple (J41.0) Diagnosis 3 Pulmonary nodule (R9 1.1) Diagnosis 4 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 Obesity may contribute to respiratory complaints. Clinical Notes Labs, CT, PFT [employer] [facility] [employer] Other Reason for referral (narrative)* Reason Referral for persist ent thoracolumbar spine pain Diagnosis 1 Acute bilateral thor acic back pain (M54.6) Diagnosis 2 Lumbar spondylosis ( M47.816) Diagnosis 3 Age-related osteopor osis without current pathological fracture (M81.0) Referral Organization [facility] [employer] Referring Provider First Name Edwin Referring Provider Last Name Marques Referring Provider Specialty Internal Ri dicine Referred Organization [facility] Referred Provider Freddie Cotton Referred Address [address], [place],[address] Referred Provider Specialty Pain Medicin e Referral Priority Routine General Notes Patient w/ known deg enerative arthritis of the spine w/ persistent moderate to severe thoracolumbar spine pain w/ paraspinal muscle spasms. Completed PT w/ some temporary improvement. Stretching, Tylenol and Tramadol helping w/ the pain. Refer for alternative treatment for persistent back pain. [employer] Other Summary Purpose Family History No Family [...] ed section and content) Medication QuestionCongestio n [phone] ATBwellnessNo InformationCPAP Equipment?4 month follow upBack SpasmsNo InformationXR resultsreferral for PTNo InformationNo InformationNo InformationCT resultsDifferent InhalerPFT resultstesting resultsback painMedicationNo InformationDexa -[phone] cold/sore throatNo Information4 month Follow upHR-AtenololUpdateNo Information INFORMATION SOURCE (unrecogn ized section and content) DATE CREATED AUTHOR 01/01/2023 [facility] DATE CREATED AUTHOR AUTHOR'S ORGANIZ ATION 05/28/2023 [facility] DATE CREATED AUTHOR AUTHOR'S ORGANIZ ATION 08/05/2023 [facility] DATE CREATED AUTHOR AUTHOR'S ORGANIZ ATION 01/17/2024 [facility] EPIC Care Teams [...] BE BASED ON THE PRIMARY CLINICAL RECORDS. [employer] provides no warranty or guarantee of the accuracy or completeness of information in this document.
[2024-04-03 14:57] LABS: Anion Gap 12.6; BUN Creatinine Ratio 29.2; Calcium 9.5 mg/dL (8.5-10.1); Carbon Dioxide 26.3 mmol/L (21.0-32.0); Chloride 105 mmol/L (98-107); Estimated GFR (African America >60 (>=60); Estimated GFR (Non-African Ame >60 (>=60); Glucose 96 mg/dL (74-106); Potassium 3.9 mmol/L (3.5-5.1); Sodium 140 mmol/L (136-145)
[2024-04-03 15:27] LABS: Estimated Average Glucose 114 mg/dL; Glycohemoglobin A1C 5.6 % (4.5-6.2)
== END 2024-04-03 13:52 | disposition home or self-care (01) ==
LOC: CT 13:51
PROVIDERS: PCP Internal Medicine; Visit Provider Internal Medicine
DX: R91.1 Solitary pulmonary nodule (principal); E11.65 Type 2 diabetes mellitus with hyperglycemia; E87.6 Hypokalemia
CPT/HCPCS: 36415; 71250; 80048; 83036

== ENCOUNTER 2024-06-18 07:54 | Outpatient (OUT) | payer MEDICARE, SELFPAY ==
--- NOTE | 2024-06-18 07:58 | MM_ITS ---
Patient Name: MARIA ELENA ALLEN MR#: [id number] : 1945 Exam Date: 06/18/2024 Ordering Doctor: DR Edwin Mohan D.O. RADIOLOGY REPORT PROCEDURE: MM TOMOSYNTHESIS SCREENING BI COMPARISON: MG MAMM SCREEN 3D JESSENIA CAD, 05/25/2022. MM TOMOSYNTHESIS SCREENING BI, 06/15/2023. INDICATIONS: Screening Calculator Name NCI Breast Cancer Risk Assessment Tool 5 Year Breast Cancer Risk 1.70% Lifetime Breast Cancer Risk 3.00% Personal Breast Cancer No Personal Ovarian Cancer No Treatments None Family Cancers None LOCATION: [facility] BREAST COMPOSITION: There are scattered areas of fibroglandular density. FINDINGS: DIAGNOSTIC CATEGORY 2--BENIGN FINDING. NO CHANGE FROM COMPARISON. Scattered benign-appearing nodules are present. Scattered benign-appearing calcifications are present. Scattered benign-appearing lymph nodes are present. RIGHT BREAST: No significant suspicious finding. LEFT BREAST: No significant suspicious finding. RECOMMENDATIONS: ROUTINE MAMMOGRAM AND CLINICAL EVALUATION IN 12 MONTHS. PLEASE NOTE: A NORMAL MAMMOGRAM DOES NOT EXCLUDE THE POSSIBILITY OF BREAST CANCER. A CLINICALLY SUSPICIOUS PALPABLE LUMP SHOULD BE BIOPSIED. Dictated by: Cayden Paige MD on 06/18/2024 at 10:11 Approved by: Cayden Paige MD on 06/18/2024 at 10:12
--- OUTSIDE RECORDS SUMMARY | 2024-06-18 08:03 | XMS_ITS | CCD ---
Author Organization [facility] Care Team Providers Care [employer] Attendant Name Role Phone Edwin Mohan Unavailable MARQUES, DR SCHULTZ Admitting Unavailable MARQUES, DR SCHULTZ Attending Unavailable BALL, DR SCHULTZ Primary Care Unavailable BALL, DR SCHULTZ Consulting Unavailable BALL, DR SCHULTZ Admitting Unavailable BALL, DR SCHULTZ Attending Unavailable MARQUES, DR SCHULTZ Primary Care Unavailable MARQUES, DR SCHULTZ Consulting Unavailable WEST, DR BHARTI De La Rosa Consulting Unavailable MARQUES, DR SCHULTZ Admitting Unavailable MARQUES, DR SCHULTZ Attending Unavailable MARQUES, DR SCHULTZ Primary Care Unavailable DO Edwin Mohan Primary Care Provider DO Edwin Mohan Attending Provider [phone] Edwin Mohan Attending Unavailable Marques, Edwin Primary Care Unavailable Edwin Mohan Admitting Unavailable Ailin CHO, Raphael Luna Attending Unavailable Ailin CHO, Anddaisy Luna Attending Unavailable Gitania CHO, Anddaisy Luna Attending Unavailable ANGEL CAMPOS Attending Unavailable ANGEL CAMPOS Attending Unavailable ANGEL CAMPOS Attending Unavailable YANY MARTINEZ Attending Unavailable EDWIN MOHAN Primary Care Physician Kari Pepper Attending Unavailable Kari Pepper Admitting Unavailable Kari Pepper Attending Unavailable Allergies Allergy Classification Reported Allergen(s) Allergy Type Date of Onset Reaction(s) Facility (7 sources) Cefaclor; Translations: [Ceclor] Drug Allergy Unknown [facility] Repository (20 sources) Ciprofloxacin Drug Allergy Unknown [employer] Other (1 source) Ciprofloxacin Drug Allergy [facility] Repository (1 source) Robafen DM Cough-Chest Congest Drug allergy (disorder) [facility] Repository (20 sources) Ceclor *CEPHALOSPORINS* Propensity to adverse reactions Unknown [employer] Other Medications Current Medications Medication Drug Class(es) Dates Sig (Normalized) Sig (Original) [id number] 200 actuat albuterol 0.09 mg/actuat metered dose [...] COUGH/ SHORT OF BREATH for 25 Active albuterol HFA 90 mcg/inh MDI (2 sources) Start: 04-20-2023 albuterol HFA 90 mcg/inh MDI Refill(s) 0, Respiratory (Inhalation), 0 Refill(s) Start Date: 04/20/23 Status: Ordered Anoro Ellipta 62.5 mcg-25 mcg inhalation powder (2 sources) Start: 05-30-2024 aspirin 81 mg oral capsule (2 sources) Platelet Aggregation Inhibitor, Nonsteroidal Anti-inflammatory Drug Start: 05-30-2024 take 1 mg by mouth every twenty-four hours aspirin 81 mg oral capsule mg cap(s), Oral, q24hr, Refills(s) 0 Start Date: 05/30/24 Status: Ordered atenolol 25 mg oral tablet (20 sources) beta-Adrenergic Dwayne Start: 08-12-2023 take 0.5 tablet by mouth once daily Atenolol 25 MG 1/2 tablet Orally Once a day for 30 days Jul, Active take 1 tablet by mouth once carolyn y Atenolol 25 MG TAKE 1 TABLET BY MOUTH EVERY DAY for 90 Active azithromycin 250 mg oral tablet (6 sources) Macrolide Antimicrobial Start: 07-19-2023 Azithromycin 250 MG as directed Orally daily for 5 days Jun, Active baclofen 10 mg oral tablet (20 sources) gamma-Aminobutyric Acid-ergic Agonist Start: 04-07-2023 take 1-2 tablets by mouth once at bedtime Baclofen 10 MG 1-2 tablets Orally q HS for 15 days Mar, Active benzonatate 200 mg oral capsule (20 sources) Non-narcotic Antitussive Start: 11-01-2022 take 1 capsule by mouth every eight hours Benzonatate 200 MG 1 capsule Orally Three times a day for 10 Oct, Active estradiol 0.1 mg/ml vaginal cream (2 sources) Estrogen Start: 05-30-2024 Estrace 0.1 mg/g Cream See Instructions, 42.5 gm, Refill(s) 1, Apply a pea-sized amount to the vagina/urethra 3x/week for a month, then 2x/week for maintenance, [facility]/pharmacy #[id number], 155, cm, 05/30/24 8:50:00 EDT, Height/Length Dosing, 81, kg, 05/30/24 8:50:00 EDT, Weight Dosing Start Date: 05/30/24 Status: Ordered 60 actuat fluticasone propionate 0.25 mg/actuat / salmeterol 0.05 mg/actuat dry powder inhaler (11 sources) Corticosteroid, beta2-Adrenergic Agonist Start: 06-03-2023 take 1 puff(s) by inhalation twice daily Wixela Inhub 250-50 MCG/ACT 1 puff Inhalation Twice a day for 30 days May, Active loratadine 10 mg oral capsule (20 sources) take 1 capsule by mouth every twenty-four hours Loratadine 10 MG 1 capsule Orally Once a day Active 24 hr mirabegron 50 mg extended release oral tablet (2 sources) beta3-Adrenergic Agonist Start: 05-30-2024 take 1 tablet by mouth once daily mirabegron 50 mg oral tablet, extended release 50 mg = 1 tab(s), Oral, Daily, # 30 tab(s), Refills(s) 11, Pharmacy: [facility]/pharmacy #[id number], 155, cm, 05/30/24 8:50:00 EDT, Height/Length Dosing, 81, kg, 05/30/24 8:50:00 EDT, Weight Dosing Start Date: 05/30/24 Status: Ordered omeprazole 40 mg delayed release oral capsule (20 sources) Proton Pump Inhibitor Start: 05-30-2024 omeprazole 40 mg Cap-DR 90 EA, 0 Refill(s), TAKE 1 CAPSULE BY MOUTH EVERY MORNING ON EMPTY STOMACH FOLLOWED IN 30 MINUTES BY BREAKFAST 90, Refills(s) 0 Start Date: 05/30/24 Status: Ordered Omeprazole 40 MG TAKE 1 CAPSULE BY MOUTH EVERY MORNING ON [...] oral tablet (20 sources) Opioid Agonist Start: 05-30-20 traMADOL 50 mg Tab Refills(s) 0 Start Date: 05/30/24 Status: Ordered Start: 06-09-2023 take 1 tablet by yovany th every six hours as needed for pain traMADol HCl 50 MG 1 tablet as needed Orally every 6 hours as needed for pain May, Active Start: 04-12-2023 take 1 tablet by yovany th twice daily as needed for pain traMADol HCl 50 MG 1 tablet as needed Orally twice daily as needed for pain Mar, Active trospium chloride 20 mg oral tablet (2 sources) Cholinergic Muscarinic Antagonist Start: 05-30-2024 take 1 tablet by mouth once daily trospium 20 mg oral tablet 20 mg = 1 tab(s), Oral, Daily, # 30 tab(s), Refills(s) 6, Pharmacy: [facility]/pharmacy #[id number], 155, cm, 05/30/24 8:50:00 EDT, Height/Length Dosing, 81, kg, 05/30/24 8:50:00 EDT, Weight Dosing Start Date: 05/30/24 Status: Ordered 30 actuat umeclidinium 0.0625 mg/actuat / vilanterol 0.025 mg/actuat dry powder inhaler (15 sources) Anticholinergic, beta2-Adrenergic Agonist take 1 puff(s) by inhalation once daily Anoro Ellipta 62.5-25 MCG/ACT 1 puff Inhalation Once a day for 30 days Active take 1 puff(s) by inhalation onc e daily Anoro Ellipta 62.5-25 MCG/ACT 1 puff Inhalation Once a day for 30 days Active vibegron 75 MG Oral Tablet [Gemtesa] (2 sources) Start: 05-30-2024 take 1 tablet by mouth once daily Gemtesa 75 mg oral tablet 75 mg = 1 tab(s), Oral, Daily, # 30 tab(s), Refills(s) 11, Pharmacy: [facility]/pharmacy #[id number], 155, cm, 05/30/24 8:50:00 EDT, Height/Length Dosing, 81, kg, 05/30/24 8:50:00 EDT, Weight Dosing Start Date: 05/30/24 Status: Ordered Completed/Discontinued Medications Medication Drug Class(es) Dates Sig (Normalized) Sig (Original) amoxicillin 875 mg / clavulanate 125 mg oral tablet (20 sources) Penicillin-class Antibacterial Start: 11-01-2022 take 1 tablet by mouth every twelve hours Amoxicillin-Pot Clavulanate 875-125 MG 1 tablet Orally every 12 hrs w/ food for 5 days Oct, Not-Taking/PRN atorvastatin 20 mg oral tablet (20 sources) HMG-CoA Reductase Inhibitor Start: 05-30-2024 atorvastatin 20 mg Tab 90 EA, 0 Refill(s), TAKE 1 TABLET BY MOUTH EVERY EVENING, Refills(s) 0 Start Date: 05/30/24 Status: Ordered Start: 09-20-2022 take 1 tablet by yovany th every twenty-four hours Atorvastatin Calcium 20 MG 1 tablet Orally Once a day Replaces the 40 mg prescription Aug, Active cycloSPORINE Opth 0.05% Emul (2 sources) Start: 05-30-2024 cycloSPORINE O pth 0.05% Emul drop(s), q12hr, Refill(s) 0 Start Date: 05/30/24 Status: Ordered escitalopram 10 mg oral tablet (20 sources) Serotonin Reuptake Inhibitor Start: 05-30-2024 escitalopram 10 mg T ab 90 EA, 0 Refill(s), TAKE 1 TABLET BY MOUTH EVERY DAY, Refills(s) 0 Start Date: 05/30/24 Status: Ordered take 1 tablet by yovany th once daily at bedtime Escitalopram Oxalate 10 MG TAKE 1 TABLET BY MOUTH EVERYDAY AT BEDTIME for 90 Not-Taking/PRN hydroCHLOROthiazide 25 mg oral tablet (20 sources) Thiazide Diuretic Start: 05-30-2024 hydrochlorothiazide 25 mg Tab 90 EA, 0 Refill(s), TAKE 1 TABLET BY MOUTH EVERY DAY, Refills(s) 0 Start Date: 05/30/24 Status: Ordered take 1 tablet by mouth once carolyn y hydroCHLOROthiazide 25 MG TAKE 1 TABLET BY MOUTH EVERY DAY for 90 Active Lidocaine (20 sources) Antiarrhythmic, Amide Local Anesthetic Start: 03-29-2023 Lidocaine Mar, 30 mg losartan potassium 100 mg oral tablet (20 sources) Angiotensin 2 Receptor Dwayne Start: 05-30-2024 losartan 100 mg Tab 90 EA, 0 Refill(s), TAKE 1 TABLET BY MOUTH EVERY DAY, Refills(s) 0 Start Date: 05/30/24 Status: Ordered take 1 tablet by mouth once carolyn y Losartan Potassium 100 MG TAKE 1 TABLET BY MOUTH EVERY DAY for 90 Active Suprep Bowel Prep Kit 17.5-3.13-1.6 GM/180ML (20 sources) Start: 05-19-2018 Suprep Bowel P rep Kit [...] Coronary arteriosclerosis; Translations: [Atherosclerotic heart disease of enterprise coronary artery without angina pectoris] Chronic Diabetes mellitus with complications (20 sources) Type 2 diabetes mellitus; Translations: [Type 2 diabetes mellitus with hyperglycemia] Onset: 03-27-2022 Chronic Disorders of lipid metabolism (20 sources) Pure hypercholesterolemia ; Translations: [Pure hypercholesterolemia , unspecified] Onset: 03-29-2022 Chronic Diverticulosis and diverticulitis (6 sources) Diverticulitis of colon; Translations: [Diverticulitis of large intestine without perforation or abscess without bleeding] Onset: 05-01-2018 05-30-2024 Chronic Esophageal disorders (20 sources) Gastro-esophageal reflux disease with esophagitis; Translations: [Gastroesophageal reflux disease with esophagitis without hemorrhage] Chronic Essential hypertension (20 sources) Essential hypertension; Translations: [Essential (primary) hypertension] Onset: 03-29-2022 Chronic Genitourinary symptoms and ill-defined conditions (3 sources) Incontinence; Translations: [Mixed incontinence] Onset: 05-30-2024 05-30-2024 Chronic Genitourinary symptoms and ill-defined conditions (7 sources) Oliguria and anuria; Translations: [Anuria and oliguria] Onset: 2016 05-30-2024 Episodic Immunizations and screening for infectious disease (2 [...] current use of drug therapy; Translations: [Other keno terminal operator (current) drug therapy] Episodic Other diseases of [...] without myelopathy or radiculopathy, lumbar region] Chronic Substance-related disorders (12 sources) Tobacco dependence in [...] sources) Dehydration; Translations: [Dehydration] Onset: 11-10-2015 Episodic Other aftercare (2 sources) Other keno terminal operator (current) drug therapy; Translations: [OTH COLLET GLUER CURRENT DRUG THERAPY] Onset: 03-29-2022 Episodic Other and unspecified benign neoplasm (2 sources) 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; Translations: [Other benign neoplasm of skin of scalp and neck] Onset: 04-23-2015 Episodic Other connective tissue disease (2 sources) Spasm; Translations: [Cramp and spasm] Onset: 10-01-2015 Episodic Other diseases of kidney and ureters (4 sources) Stricture of ureter; Translations: [Crossing vessel and stricture of ureter without hydronephrosis] Onset: 11-07-2017 05-28-2024 Episodic Other screening for suspected conditions (not mental disorders or infectious disease) (5 sources) Encounter for screening mammogram for malignant neoplasm of breast; Translations: [ENC SCR MAMMO MALIG NEOPLASM BREAST] Onset: 05-25-2022 Episodic Spondylosis; intervertebral disc disorders; other back problems (12 sources) Pain in thoracic spine; Translations: [Pain in thoracic spine] Onset: 2013 Episodic Unclassified (1 source) Acute cough R05.1 Unclassified (1 source) Acute bilateral low back pain without sciatica M54.50 Unclassified (1 source) Suspected COVID-19 virus infection Z20.822 Urinary tract infections (2 sources) Acute cystitis; Translations: [Acute cystitis without hematuria] Onset: 06-06-2018 Episodic Results Test Name Value Interpretation Reference Range Facility Urine Cytology ([facility])on Microscopic exam Cytology (U) [Interp] Diagnosis Info Invalid Interpretation Code [facility] Comment on above: Result Comment: A:Ur ine,Clean Catch:Bladder Wash Interpretation - Adequate cellularity for evaluation. CPT 15344 MicroScopic Description - Adequacy - Gross Description Site ID:A color Yellow fixative Alcohol Specimen designated Clean Catch received in alcohol preservative and labeled with the patient???s name, consists of 40ml clear yellow fluid. Electronically signed by : on: 06/04/2024 15:27:59 Performed By: #### 1 [id number] #### [facility] [address] [place] [address] Ambulatory Visit Summaryon 1 Ambulatory Visit Summary Ambulatory Visit Summary CHELLY ALLEN :1945 Visit Date:05/30/2024 Ambulatory Visit Instructions Your Diagnosis Gross hematuria Mixed incontinence Your Care Team Attending Physician - Evgeny CHO, Kari Bob Primary Care Physician - EDWIN MOHAN DO This Is Your Medications List estradiol topical (Estrace 0.1 mg/g Cream) vibegron (Gemtesa 75 mg oral tablet) Contact prescribing physician if questions or concerns albuterol (albuterol HFA 90 mcg/inh MDI) aspirin (aspirin 81 mg oral capsule) atorvastatin (atorvastatin 20 mg Tab) cycloSPORINE ophthalmic (cycloSPORINE Opth 0.05% Emul) escitalopram (escitalopram 10 mg Tab) hydrochlorothiazide (hydrochlorothiazide 25 mg Tab) losartan (losartan 100 mg Tab) omeprazole (omeprazole 40 mg Cap-DR) tramadol (traMADOL 50 mg Tab) umeclidinium-vilanterol (Anoro Ellipta 62.5 mcg-25 mcg inhalation powder) Procedures Performed Cataract, Colonoscopy, History of hysterectomy, History of tonsillectomy. Discharge Vitals Height 155 cm Height 61 in Weight 81 kg Weight 178.2 lb BMI 33.71 What to do next You Need to Schedule the Following Appointments Follow Up with Evgeny CHO, SHIN Bejarano, URO When: Comments: sched cysto Where: [address], [place] [address] [phone] Medications What How Much When Instructions New estradiol topical (Estrace 0.1 mg/ g Cream) See instructions Refills: 1 Apply a pea-sized amount to the vagina/ urethra 3x/ week for a month, then 2x/ week for maintenance Pickup at [facility]/pharmacy #[id number] New vibegron (Gemtesa 75 mg oral tablet) 1 Tablets By Mouth Every day Refills: 11 Pickup at [facility]/pharmacy #[id number] Unchanged albuterol (albuterol HFA 90 mcg/ inh MDI) Respiratory (Inhalation), 0 Refill(s) Contact prescribing physician if questions or concerns Unchanged aspirin (aspirin 81 mg oral capsule) By Mouth Every 24 hours Contact prescribing physician if questions or concerns Unchanged atorvastatin (atorvastatin 20 mg Tab) 90 EA, 0 Refill(s), TAKE 1 TABLET BY MOUTH EVERY EVENING Contact prescribing physician if questions or concerns Unchanged cycloSPORINE ophthalmic (cycloSPORINE Opth 0.05% Emul) Every 12 hours Contact prescribing physician if questions or concerns Unchanged escitalopram (escitalopram 10 mg Tab) 90 EA, 0 Refill(s), TAKE 1 TABLET BY MOUTH EVERY DAY Contact prescribing physician if questions or concerns Unchanged hydrochlorothiazide (hydrochlorothiazide 25 mg Tab) 90 EA, 0 Refill(s), TAKE 1 TABLET BY MOUTH EVERY DAY Contact prescribing physician if questions or concerns Unchanged losartan (losartan 100 mg Tab) 90 EA, 0 Refill(s), TAKE 1 TABLET BY MOUTH EVERY DAY Contact prescribing physician if questions or concerns Unchanged omeprazole (omeprazole 40 mg Cap-DR) 90 EA, 0 Refill(s), TAKE 1 CAPSULE BY MOUTH EVERY MORNING ON EMPTY STOMACH FOLLOWED IN 30 MINUTES BY BREAKFAST 90 Contact prescribing physician if questions or concerns Unchanged tramadol (traMADOL 50 mg Tab) Contact prescribing physician if questions or concerns Unchanged umeclidinium-vilanterol (Anoro Ellipta 62.5 mcg-25 mcg inhalation powder) 1 Unknown, Respiratory (Inhalation), 0 Refill(s) Contact prescribing physician if questions or concerns Pharmacy Information [facility]/pharmacy #[id number]: [address], [place] [phone] Allergies No active allergies Problems Ongoing - Any problem that you are currently receiving treatment for. Coronary arteriosclerosis Diverticulitis of colon Essential hypertension Gross hematuria Low back pain Mixed incontinence Stricture of ureter Type 2 diabetes mellitus Patient Survey You may receive a survey via text or e-mail asking about your office visit. Please share your experience with us by completing your survey. We appreciate your feedback and thank you for choosing us for your care. Education Materials Hematuria, Adult Hematuria is blood in the urine. Blood may be visible in the urine, or it may be identified with a test. This condition can be caused by infections of the bladder, urethra, kidney, or prostate. Other possible causes include: ? Kidney stones. ? Cancer of the urinary tract. ? Too much calcium in the urine. ? Conditions that are passed from parent to child (inherited conditions). ? Exercise that requires a lot of energy. Infections can usually be treated with medicine, and a kidney stone usually will pass through your urine. If neither of these is the cause of your hematuria, more tests may be needed to identify the cause of your symptoms. It is very important to tell your health care provider about any blood in your urine, even if it is painless or the blood stops without treatment. Blood in the urine, when it happens and then stops and then happens again, can be a symptom of a very serious condition, including cancer. There is no pain in the initial stages of many urinary cancers. Jaleesao (more content not included)... Normal [facility] Urine Cytology ([facility])on UC Method of Extraction Bladder Urine Normal [facility] Comment on above: Performed By: #### 1 [id number] #### [facility] [address] [place] [address] Number of Jars 1 Invalid Interpretation Code [facility] Comment on above: Performed By: #### 1 [id number] #### [facility] [address] [place] [address] Specimen Clean Catch Normal [facility] Comment on above: Performed By: #### 1 [id number] #### [facility] [address] [place] [address] Type of Service Technical Only Normal [facility] Comment on above: Performed By: #### 1 [id number] #### [facility] [address] [id number] Urology Office/Clinic Noteon 05-30-2024 Urology Office/Clinic Note Urology Office/Clinic Note Chief Complaint Patient in [facility] due to hematuria HPI Staff 79 year old female new patient referred for gross hematuria. Patient had a CT in October that was negative for renal or bladder mass. She was referred to our office to complete the hematuria work up per her PCP Dr. Mohan. Patient noted at last appointment with Dr. Mohan on 04/20/24 she had noticed a weak urine stream that was associated with discomfort while voiding. Patient states she first noticed the hematuria on 04/20/24. States she noticed a few small blood clots. States this was the only day she has seen the blood. States she does have issues with urgency and frequency, states this can come and go. States she feels like she does empty her bladder completely, but there might be a few times that she will sit back down and dribble prior to completely finishing. Dysuria: denies Incomplete bladder emptying: admits-occasionally Hematuria: admits-on 04/20/24 Frequency: admits Urgency: admits Nocturia: 1 x a night-occasionally Stream: steady Leaking: admits Post void dripping: admits Wearing pads/ Depends: admits Urge incontinence: denies Stress incontinence: denies Incontinence without Sensory Awareness: denies Abdominal pain: denies Flank pain: denies Sexual complaints: _ History of Present Illness Tests reviewed: reviewed UAs, referral records including notes, labs, CT scan I have reviewed the previous health record information and history for this patient from external providers. I have reviewed and verified the staff HPI to be accurate for this encounter. Review of Systems PHQ Score Initial Depression Screen Score: 0 SCORE ROS - Provider Constitutional: denies weight loss, denies hot flashes. Eyes: denies eye problems. Gastrointestinal: denies nausea, denies vomiting. Cardiovascular: denies chest pain or angina. Integumentary: no dryness Musculoskeletal: denies musculoskeletal symptoms. ENMT: denies otolaryngeal symptoms. Respiratory: no shortness of breath. Heme/Lymph: denies easy bleeding tendency, denies easy bruising tendency. Psychiatric: no confusion, no anxiety. Genitourinary: See HPI. Physical Exam Vitals & Measurements HT: 61 in HT: 155 cm WT: 81 kg WT: 178.2 lb BMI: 33.71 General Appearance: alert , no acute distress, well nourished, well developed female. Assessment/Plan Chelly is a 79 yo female new pt here for gross hematuria. 1. Gross hematuria (R31.0: Gross hematuria) CT AP w con 11/11/23 [facility] - No renal mass, obstruction, or calcification. No bladder wall thickening, lesion, or calculus. Saw PCP 04/20/24 for gross hematuria. Per pt, urine appeared red w some clots. UA was positive for blood and leuks but negative for nitrites. No ucx done. Was having vaginal burning, bladder spasms, and increased frequency at that time. PCP empirically tx'd w/ Macrobid 100mg bid x5 days. Pt states abx resolved sxs. Former smoker x41 yrs. No occupational exposure. No fam hx of cancers. Never had recurrence of gross hematuria. UA today negative for blood and infection today Discussed potential etiologies and implications of hematuria with patient. These include: Prostatic disease, trauma, Tumor, infection/inflammation, stones, period/menses (pseudohematuria), obstructive uropathy (urolithiasis, stricture, etc), nephritis, Tuberculosis, thrombosis, and hematologic. Urologic malignancy is more common in patients with gross hematuria (23%) than in patient with microscopic hematuria (5%). In adults with microscopic hematuria, the initial evaluation fails to identify an etiology in 43% of patients. Approximately 1-3% of these patients eventually develop a urologic malignancy. In adults with gross hematuria, the initial evaluation fails to identify an etiology in 8% of patients. Approximately, 18% of these patients eventually develop a urologic malignancy. Work-up needed: 1. UA, urine culture - neg 2. Urine cytology - send today 3. CT urogram - done 4. Cystoscopy -Will schedule cystoscopy. The risks and benefits for cystoscopy have been discussed. The risks include bleeding, infection, and irritation of the bladder and urinary channel, among others. The patient, after being informed of procedural details and after questions have been answered, wishes to proceed. Full informed consent has been obtained. Will order Local anesthesia. 2. Mixed incontinence (N39.46: Mixed incontinence) BBS 20-25. UUI >> ANTONIO. Tried bladder medication many years ago but does not recall name. Thinks it may have helped but uncertain. Wears pads, ongoing for years. No hx of UTIs but does have itching/burning of labia, attributes to irritation for pads. Uses topical cream. Discussed Estrace cream and risks/benefits. Pt wishes to try this. PVR today 0 mL. We discussed the pathophysiology of overactive bladder. We discussed possible treatment options including doing nothing, Kegels/physical therapy +/- biofeedback, and tri (more content not included)... Normal [facility] Comment on above: Result Comment: Elec tronically Signed By: Kari Pepper MD\.br\Date and Time Signed: 05/30/24 10:40 EDT\.br\Electronically Co-Signed By: Manuela Emanuel\.br\Date and Time Co-Signed: 05/30/24 09:17 EDT MG MAMM SCREEN 3D JESSENIA CADon 05-25-2022 MG MAMM SCREEN 3D JESSENIA CAD Patient: CHELLY ALLEN Exam Date: 05/25/2022 : 1945 Gender:F Ordering : DR EDWIN MOHAN D.O. Admission #: [id number] Family : Order #: [id number] CLICK HERE TO VIEW EXAM RADIOLOGY REPORT [...] Treatments None Family Cancers None LOCATION: [facility] BREAST COMPOSITION: Scattered areas fibroglandular density. [...] MD on 05/26/2022 at 07:42 Approved by: Bharit Paige MD on 05/26/2022 at 07:48 Normal [facility] CBC AUTO DIFFon 03-27-2022 BASO # 0.0 103/ul Normal 0.0-0.1 [facility] Comment on above: Performed By: #### C BC #### [facility] [address] [place] [address] Dr. Eduardo Segura Basophils/100 WBC (Bld) 0.3 % Normal 0.2-2.0 [facility] Comment on above: Performed By: #### C BC #### [facility] [address] [place] [address] Dr. Eduardo Segura EO # 0.3 103/ul Normal 0.0-0.7 [facility] Comment on above: Performed By: #### C BC #### [facility] [address] [place] [address] Dr. Eduardo Segura Eosinophils/100 WBC (Bld) 4.3 % Normal 0.9-7.0 [facility] Comment on above: Performed By: #### C BC #### [facility] [address] [place] [address] Dr. Eduardo Segura Erythrocyte distribution width (RBC) [Ratio] 13.7 % Normal 11.0-15.0 [facility] Comment on above: Performed By: #### C BC #### [facility] [address] [place] [address] Dr. Eduardo Segura Hematocrit (Bld) [Volume fraction] 42.6 % Normal 36.0-48.0 [facility] Comment on above: Performed By: #### C BC #### [facility] [address] [place] [address] Dr. Eduardo Segura Hemoglobin (Bld) [Mass/Vol] 14.1 g/dL Normal 12.0-16.0 [facility] Comment on above: Performed By: #### C BC #### [facility] [address] [place] [address] Dr. Eduardo Segura IG # 0.02 10e3/ul Normal 0.00-0.03 [facility] Comment on above: Performed By: #### C BC #### [facility] [address] [place] [address] Dr. Eduardo Segura IG % 0.3 % Normal 0.0-0.5 [facility] Comment on above: Performed By: #### C BC #### [facility] [address] [place] [address] Dr. Eduardo Segura LYMPH # 2.3 103/ul Normal 1.2-3.8 [facility] Comment on above: Performed By: #### C BC #### [facility] [address] [place] [address] Dr. Eduardo Segura Lymphocytes/100 WBC (Bld) 31.9 % Normal 20.5-60.0 [facility] Comment on above: Performed By: #### C BC #### [facility] [address] [place] [address] Dr. Eduardo Segura MANUAL DIFF REQ NO Normal [facility] Comment on above: Performed By: #### C BC #### [facility] [address] [place] [address] Dr. Eduardo Segura MCH (RBC) [Entitic mass] 31.1 pg Normal 26.7-34.0 [facility] Comment on above: Performed By: #### C BC #### [facility] [address] [place] [address] Dr. Eduardo Segura MCHC (RBC) [Mass/Vol] 33.1 g/dL Normal 29.9-35.2 [facility] Comment on above: Performed By: #### C BC #### [facility] [address] [address] [address] Eduardo Segura MCV (RBC) [Entitic vol] 94.0 fL Normal 81.0-99.0 [facility] Comment on above: Performed By: #### C BC #### [facility] [address] [address] [address] Eduardo Segura MONO # 0.6 103/ul Normal 0.3-0.8 [facility] Comment on above: Performed By: #### C BC #### [facility] [address] [address] [address] Eduardo Segura Monocytes/100 WBC (Bld) 7.7 % Normal 1.7-12.0 [facility] Comment on above: Performed By: #### C BC #### [facility] [address] [place] [address] Dr. Eduardo Segura NEUT # 4.0 103/ul Normal 1.4-6.5 [facility] Comment on above: Performed By: #### C BC #### [facility] [address] [place] [address] Dr. Eduardo Segura Neutrophils/100 WBC (Bld) 55.5 % Normal 43.0-75.0 [facility] Comment on above: Performed By: #### C BC #### [facility] [address] [address] [address] Eduardo Segura Platelet mean volume (Bld) [Entitic vol] 10.2 fL Normal 9.5-13.5 [facility] Comment on above: Performed By: #### C BC #### [facility] [address] [address] [address] Eduardo Segura PLT 286 103/ul Normal 150-450 [facility] Comment on above: Performed By: #### C BC #### [facility] [address] [address] [address] Eduardo Segura RBC 4.53 106/ul Normal 4.20-5.40 [facility] Comment on above: Performed By: #### C BC #### [facility] [address] [address] [address] Eduardo Segura WBC 7.2 103/ul Normal 4.0-11.0 [facility] Comment on above: Performed By: #### C BC #### [facility] [address] [address] [address] Eduardo Segura GLYCOHEMOGLOBIN A1Con 2021 ADA RECOMMENDATION SEE BELOW Normal [facility] Comment on above: Result Comment: ADA RECOMMENDED LIMIT 4.0 - 6.0 ADA THERAPEUTIC TARGET < 7.0 ACTION SUGGESTED > 7.0 Performed By: #### A 1C #### [facility] [address] [place] [address] Dr. Eduardo Segura Glucose [Mass/Vol] 134 mg/dL Normal [facility] Comment on above: Performed By: #### A 1C #### [facility] [address] [place] [address] Dr. Eduardo Segura HbA1c (Bld) [Mass fraction] 6.3 % Critically high 4.5-6.2 [facility] Comment on above: Performed By: #### A 1C #### [facility] [address] [place] [address] Dr. Eduardo Segura LIPID PROFILEon 03-27-2022 CHOL-HDL RATIO NORM SEE BELOW Normal [facility] Comment on above: Result Comment: 3.3 - 4.4 LOW RISK 4.4 - 7.1 AVERAGE RISK 7.1 - 11.0 MODERATE RISK >11.0 HIGH RISK Performed By: #### B MP, LIPID, ALT #### [facility] [address] [place] [address] Dr. Eduardo Segura Cholesterol [Mass/Vol] 154 mg/dL Normal <=200 [facility] Comment on above: Performed By: #### B MP, LIPID, ALT #### [facility] [address] [place] [address] Dr. Eduardo Segura Cholesterol in HDL [Mass/Vol] 60 mg/dL Normal 40-60 [facility] Comment on above: Performed By: #### B MP, LIPID, ALT #### [facility] [address] [address] [address] Eduardo Segura Cholesterol in LDL [Mass/Vol] 75.4 mg/dL Normal [facility] Comment on above: Performed By: #### B MP, LIPID, ALT #### [facility] [address] [address] [address] Eduardo Segura Cholesterol.total/C holesterol in HDL [Mass ratio] 2.6 {ratio} Normal [facility] Comment on above: Performed By: #### B MP, LIPID, ALT #### [facility] [address] [address] [address] Eduardo Segura HDL NORMAL > or = 60 mg/dl - LO W CARDIOVASCULAR RISK <40 mg/dl - HIGH CARDIOVASCULAR RISK Normal [facility] Comment on above: Performed By: #### B MP, LIPID, ALT #### [facility] [address] [place] [address] Dr. Eduardo Segura LDL CALC NORMAL SEE BELOW Normal [facility] Comment on above: Result Comment: <100 mg/dl OPTIMAL 100 - 129 mg/dl NEAR OR ABOVE OPTIMAL 130 - 159 mg/dl BORDERLINE HIGH 160 - 189 mg/dl HIGH >190 mg/dl VERY HIGH Performed By: #### B MP, LIPID, ALT #### [facility] [address] [address] [address] Eduardo Segura Triglyceride [Mass/Vol] 93 mg/dL Normal <=150 [facility] Comment on above: Performed By: #### B MP, LIPID, ALT #### [facility] [address] [address] [address] Eduardo Segura VLDL CALC 18.6 mg/dL Normal [facility] Comment on above: Performed By: #### B MP, LIPID, ALT #### [facility] [address] [place] [address] Dr. Eduardo Segura PROF CHEM 8 (BAS METB)on Anion gap [Moles/Vol] 15.0 mmol/L Normal [facility] Comment on above: Performed By: #### B MP, LIPID, ALT #### [facility] [address] [place] [address] Dr. Eduardo Segura Calcium [Mass/Vol] 9.8 mg/dL Normal 8.5-10.1 [facility] Comment on above: Performed By: #### B MP, LIPID, ALT #### [facility] [address] [address] [address] Eduardo Segura Chloride [Moles/Vol] 105 mmol/L Normal 98-107 [facility] Comment on above: Performed By: #### B MP, LIPID, ALT #### [facility] [address] [place] [address] Dr. Eduardo Segura CO2 [Moles/Vol] 25.2 mmol/L Normal 21.0-32.[address] [facility] Comment on above: Performed By: #### B MP, LIPID, ALT #### [facility] [address] [place] [address] Dr. Eduardo Segura Creatinine [Mass/Vol] 0.77 mg/dL Normal 0.55-1.02 [facility] Comment on above: Performed By: #### B MP, LIPID, ALT #### [facility] [address] [place] [address] Dr. Eduardo Segura EGFR-AF PARAGUAYAN >60 Normal >=[address] [facility] Comment on above: Performed By: #### B MP, LIPID, ALT #### [facility] [address] [place] [address] Dr. Eduardo Segura EGFR-NON AF PARAGUAYAN >60 Normal >=60 [facility] Comment on above: Performed By: #### B MP, LIPID, ALT #### [facility] [address] [place] [address] Dr. Eduardo Segura Glucose [Mass/Vol] 142 mg/dL Critically high 74-106 [facility] Comment on above: Performed By: #### B MP, LIPID, ALT #### [facility] [address] [address] [address] Eduardo Segura Potassium [Moles/Vol] 4.2 mmol/L Normal 3.5-5.1 [facility] Comment on above: Performed By: #### B MP, LIPID, ALT #### [facility] [address] [address] [address] Eduardo Segura Sodium [Moles/Vol] 141 mmol/L Normal 136-145 [facility] Comment on above: Performed By: #### B MP, LIPID, ALT #### [facility] [address] [address] [address] Eduardo Segura Urea nitrogen [Mass/Vol] 17.0 mg/dL Normal 7.0-18.0 [facility] Comment on above: Performed By: #### B MP, LIPID, ALT #### [facility] [address] [address] [address] Eduardo Segura Urea nitrogen/Creatinine [Mass ratio] 22.1 mg/mg Normal [facility] Comment on above: Performed By: #### B MP, LIPID, ALT #### [facility] [address] [address] [address] Eduardo Segura [facility] 03-27-2022 ALT [Catalytic activity/Vol] 20 U/L Normal 14-59 [facility] Comment on above: Performed By: #### B MP, LIPID, ALT #### [facility] [address] [address] [address] Eduardo Segura Vital Signs Date Time Vital Sign Value Performing Clinician Facility 08-09-2023 15:00-0500 Body height 165.1 cm Edwin Mohan Other [facility] Other 08-09-2023 15:00-0500 Body mass index (BMI) [Ratio] 32.88 kg/m2 Edwin [employer] Other [facility] Other 08-09-2023 15:00-0500 Body weight 89.63 kg Edwin Mohan Other [facility] Other 08-09-2023 15:00-0500 Diastolic blood pressure 94 mm[Hg] Edwin [employer] Other [facility] Other 08-09-2023 15:00-0500 Respiratory rate 12 /min Edwin [employer] Other [facility] Other 08-09-2023 15:00-0500 Systolic blood pressure 134 mm[Hg] Edwin Ball Other [facility] Other 06-08-2023 14:15-0400 Body height 165.1 cm Edwin Ball Other [facility] Other 06-08-2023 14:15-0400 Body mass index (BMI) [Ratio] 33.71 kg/m2 Edwin Ball Other [facility] Other 06-08-2023 14:15-0400 Body weight 91.9 kg Edwin Ball Other [facility] Other 06-08-2023 14:15-0400 Diastolic blood pressure 82 mm[Hg] Edwin Ball Other [facility] Other 06-08-2023 14:15-0400 Respiratory rate 12 /min Edwin Ball Other [facility] Other 06-08-2023 14:15-0400 Systolic blood pressure 128 mm[Hg] Edwin Ball Other [facility] Other 06-03-2023 11:30-0400 Body height 165.1 cm Edwin Ball Other [facility] Other 06-03-2023 11:30-0400 Body mass index (BMI) [Ratio] 33.71 kg/m2 Edwin Ball Other [facility] Other 06-03-2023 11:30-0400 Body weight 91.9 kg Edwin Ball Other [facility] Other 06-03-2023 11:30-0400 Diastolic blood pressure 80 mm[Hg] Edwin Ball Other [facility] Other 06-03-2023 11:30-0400 Respiratory rate 12 /min Edwin Ball Other [facility] Other 06-03-2023 11:30-0400 Systolic blood pressure 130 mm[Hg] Edwin Ball Other [facility] Other 04-12-2023 10:45-0400 Body height 165.1 cm Edwin Ball Other [facility] Other 04-12-2023 10:45-0400 Body mass index (BMI) [Ratio] 34.61 kg/m2 Edwin Ball Other [facility] Other 04-12-2023 10:45-0400 Body weight 94.35 kg Edwin Ball Other [facility] Other 04-12-2023 10:45-0400 Diastolic blood pressure 74 mm[Hg] Edwin Ball Other [facility] Other 04-12-2023 10:45-0400 Respiratory rate 20 /min Edwin Ball Other [facility] Other 04-12-2023 10:45-0400 Systolic blood pressure 116 mm[Hg] Edwin Ball Other [facility] Other 03-29-2023 10:30-0400 Body height 165.1 cm Edwin Ball Other [facility] Other 03-29-2023 10:30-0400 Body mass index (BMI) [Ratio] 34.48 kg/m2 Edwin Ball Other [facility] Other 03-29-2023 10:30-0400 Body weight 93.99 kg Edwin Ball Other [facility] Other 03-29-2023 10:30-0400 Diastolic blood pressure 70 mm[Hg] Edwin Ball Other [facility] Other 03-29-2023 10:30-0400 Respiratory rate 12 /min Edwin Ball Other [facility] Other 03-29-2023 10:30-0400 Systolic blood pressure 158 mm[Hg] Edwin Ball Other [facility] Other 11-25-2022 11:30-0400 Body height 165.1 cm Edwin Ball Other [facility] Other 11-25-2022 11:30-0400 Body mass index (BMI) [Ratio] 35.61 kg/m2 Edwin Ball Other [facility] Other 11-25-2022 11:30-0400 Body weight 97.07 kg Edwin Ball Other [facility] Other 11-25-2022 11:30-0400 Diastolic blood pressure 76 mm[Hg] Edwin Ball Other [facility] Other 11-25-2022 11:30-0400 Respiratory rate 12 /min Edwin Ball Other [facility] Other 11-25-2022 11:30-0400 Systolic blood pressure 126 mm[Hg] Edwin Ball Other [facility] Other Encounters Encounter Date Encounter Type Care Provider Facility Start: 05-30-2024 End: 05-30-2024 Lab Drop off Kari Pepper [facility] Start: 05-30-2024 End: 05-30-2024 ambulatory Kari Pepper Facility[facility] Start: 05-30-2024 End: 05-30-2024 Patient encounter procedure Kari Pepper [facility] Start: 05-18-2024 ambulatory Kari Pepper Facility:[facility] Start: 04-03-2024 End: 04-03-2024 ambulatory ANGEL CAMPOS Not Available Start: 01-17-2024 End: 01-17-2024 ambulatory ANGEL CAMPOS Not Available Start: 10-14-2023 End: 10-14-2023 ambulatory Edwin Mohan Other [facility] Other Start: 10-14-2023 Telephone encounter Edwin Ball [facility] Start: 09-19-2023 End: 09-19-2023 ambulatory ANGEL CAMPOS Not Available Start: 08-12-2023 End: 08-12-2023 ambulatory Edwin Ball Other [facility] Other Start: 08-12-2023 Telephone encounter Edwin Ball [facility] Start: 08-11-2023 End: 08-11-2023 ambulatory Edwin Ball Other [facility] Other Start: 08-11-2023 Telephone encounter Edwin Ball [facility] Start: 08-09-2023 End: 08-09-2023 ambulatory Edwin Ball Other [facility] Other Start: 08-09-2023 Office outpatient vi sit 25 minutes Edwin Ball [facility] Start: 08-04-2023 End: 08-04-2023 ambulatory Edwin Ball Other [facility] Other Start: 08-04-2023 Telephone encounter Edwin Ball [facility] Start: 08-02-2023 End: 08-02-2023 ambulatory YANY MARTINEZ Not Available Start: 07-25-2023 End: 07-26-2023 ambulatory Raphael Parisi MD Facility:[facility] Start: 07-19-2023 End: 07-19-2023 ambulatory Edwin Mohan Other [facility] Other Start: 07-19-2023 Office outpatient vi sit 15 minutes Edwin Ball [facility] Start: 06-20-2023 End: 06-21-2023 ambulatory Raphael Parisi MD Facility:[facility] Start: 06-16-2023 End: 06-16-2023 ambulatory Edwin Mohan Other [facility] Other Start: 06-16-2023 Telephone encounter Edwin Ball [facility] Start: 06-15-2023 End: 06-15-2023 ambulatory Edwin Ball Other [facility] Other Start: 06-15-2023 Telephone encounter Edwin Ball [facility] Start: 06-13-2023 End: 06-14-2023 ambulatory Raphael Parisi MD Facility:[facility] Start: 06-09-2023 End: 06-09-2023 ambulatory Edwin Ball Other [facility] Other Start: 06-09-2023 Telephone encounter Edwin Ball [facility] Start: 06-08-2023 End: 06-08-2023 ambulatory Edwin Ball Other [facility] Other Start: 06-08-2023 Office outpatient vi sit 15 minutes Edwin Ball [facility] Start: 06-03-2023 End: 06-03-2023 ambulatory Edwin Ball Other [facility] Other Start: 06-03-2023 Office outpatient vi sit 25 minutes Edwin Ball [facility] Start: 05-25-2023 End: 05-25-2023 ambulatory Edwin Ball Other [facility] Other Start: 05-25-2023 Telephone encounter Edwin Ball [facility] Start: 05-23-2023 End: 05-23-2023 ambulatory Edwin Ball Facility:[facility] Start: 05-23-2023 End: 05-23-2023 ambulatory DO Edwin Ball Work Phone: [facility] Work Phone: Start: 05-23-2023 End: 05-23-2023 Patient encounter procedure DO Edwin Ball Work Phone: [facility] Work Phone: Start: 04-21-2023 End: 04-21-2023 ambulatory Edwin Ball Other [facility] Other Start: 04-21-2023 Telephone encounter Edwin Ball [facility] Start: 04-20-2023 End: 04-20-2023 ambulatory Edwin Ball Other [facility] Other Start: 04-20-2023 Telephone encounter Edwin Ball [facility] Start: 04-18-2023 End: 04-18-2023 ambulatory Edwin Ball Other [facility] Other Start: 04-18-2023 Telephone encounter Edwin Ball [facility] Start: 04-12-2023 End: 04-12-2023 ambulatory Edwin Ball Other [facility] Other Start: 04-12-2023 Office outpatient vi sit 15 minutes Edwin Ball [facility] Start: 04-12-2023 Telephone encounter Edwin Ball [facility] Start: 04-07-2023 End: 04-07-2023 ambulatory Edwin Ball Other [facility] Other Start: 04-07-2023 Telephone encounter Edwin Ball [facility] Start: 03-29-2023 End: 03-29-2023 ambulatory Edwin Marques Other [facility] Other Start: 03-29-2023 Office outpatient vi sit 15 minutes Edwin Mohan [facility] Start: 01-08-[address] EDWIN MOHAN Facili ty:[facility] Start: 11-30-2022 End: 11-30-2022 ambulatory Edwin Mohan Other [facility] Other Start: 11-30-2022 Telephone encounter Edwin Mohan [facility] Start: 11-28-2022 End: 11-28-2022 ambulatory Edwin Mohan Other [facility] Other Start: 11-28-2022 Telephone encounter Edwin Mohan [facility] Start: 11-25-2022 End: 11-25-2022 ambulatory Edwin Mohan Other [facility] Other Start: 11-25-2022 Patient encounter procedure Edwin Mohan [facility] Start: 11-08-2022 End: 11-08-2022 ambulatory Edwin Marques Other [facility] Other Start: 11-08-2022 Telephone encounter Edwin Mohan [facility] Start: 11-01-2022 End: 11-01-2022 ambulatory Edwin Marques Other [facility] Other Start: 11-01-2022 Office outpatient vi sit 15 minutes Edwin Mohan [facility] Start: 10-19-2022 End: 10-19-2022 ambulatory Edwin Marques Other [facility] Other Start: 10-19-2022 Telephone encounter Edwin Marques [facility] Start: 07-22-2022 Adult health examination Edwin Mohan Other [facility] Other Start: 05-25-2022 End: 05-26-[address] EDWIN MOHAN Facility:[facility] Start: 03-27-2022 End: 03-28-[address] EDWIN MOHAN Facility:[facility] Procedures Date Procedure Procedure Detail Performing Clinician Start: 05-01-2018 Screening for malign ant neoplasm of colon Edwin Mohan Other Start: 08-01-2017 Screening for osteoporosis Edwin Mohan Other Cataract (disorder) Kari Zahida e Colonoscopy Kari Lue Depression screening Ana Mohan Other H/O: hysterectomy Kari Lue History of tonsillectomy Rosie hy Lue Screening for malign ant neoplasm of breast Edwin Mohan Other Screening for malign ant neoplasm of skin Edwin Mohan Other Immunizations Immunization Date Immunization Notes Care Provider Fa [facility] 05-20-2024 tetanus toxoid, redu mitzi diphtheria toxoid, and acellular pertussis vaccine, adsorbed Kari Lue [facility] 05-10-2024 influenza virus vaccine, unspecified formulation Kari Lue [facility] 04-08-2024 zoster vaccine recombinant Kari Lue [facility] 05-17-2023 influenza virus vaccine, unspecified formulation Kari Lue [facility] 07-03-2022 influenza, high dose seasonal, preservative-free Edwin Mohan Other [facility] Other 06-23-2022 influenza, high dose seasonal, preservative-free Edwin Mohan Other [facility] Other 06-23-2022 influenza virus vaccine, unspecified formulation Kari Lue [facility] 05-18-2022 COVID-19 Pfizer (bivalent) Edwin Marques Other [facility] 12-12-2021 COVID-19 Pfizer Edwin kurtz Other [facility] Other 12-12-2021 COVID-19 Vaccine Pfi zer - Documentation Purposes Only Edwin Mohan Other [facility] Other 12-12-2021 SARS-CoV-2 mRNA ([id number]) vaccine Kari Pepper [facility] 07-21-2021 influenza virus vaccine, split virus (incl. purified surface antigen) Edwin Mohan Other [facility] Other 05-22-2021 COVID-19 Vaccine Pfi zer - Documentation Purposes Only Edwin Mohan Other [facility] Comment on above: Result Comment: 2023: [id number] 10-08-2020 COVID-19 Vaccine Pfi zer - Documentation Purposes Only Edwin Marques Other [facility] Comment on above: Result Comment: 2023: [id number] 09-17-2020 COVID-19 Vaccine Moderna - Documentation Purposes Only Edwin Marques Other [facility] Other 09-17-2020 COVID-19 Vaccine Pfi zer - Documentation Purposes Only Edwin Mohan Other [facility] Comment on above: Result Comment: 2023: [id number] 04-30-2020 influenza virus vaccine, split virus (incl. purified surface antigen) Edwin Mohan Other [facility] Other 05-18-2019 pneumococcal polysaccharide vaccine, 23 valent Edwin Mohan Other [facility] Other 05-01-2018 pneumococcal polysaccharide vaccine, 23 valent Edwin Mohan Other [facility] 08-02-2017 diphtheria, tetanus toxoids and acellular pertussis vaccine, unspecified formulation Edwin Mohan Other [facility] Other 11-20-2016 pneumococcal polysaccharide vaccine, 23 valent Kari Pepper [facility] 06-05-2015 pneumococcal conjuga te vaccine, 13 valent Edwin Mohan Other [facility] Other 06-04-2015 pneumococcal conjuga te vaccine, 13 valent Edwin Mohan Other [facility] Other Payers Date Payer Category Payer Self-pay 2023 Private Health Insurance [id number] Medicare 2022 Private Health Insurance 1958 Medicare [id number] 2.1 [id number] 1959 Private Health Insurance CLI [id number] 1945 Unknown [id number] 2.16.84 [id number] 1945 Unknown [id number] .16.84 0.1.987658.3.579.2.593 1945 Unknown [id number] 2.16.84 0.1.073773.3.579.2.593 1945 Unknown [id number] 2.. [id number] 1945 Unknown [id number] 2.16. 840.1.812597.3.579.2.196 1946 Unknown [id number] 2.16. 840.1.443523.3.579.2.196 1945 Unknown [id number] 2.16.84 0.1.373531.3.579.2.1259 1946 Unknown [id number] 2.16.84 0.1.217593.3.579.2.1259 1946 Unknown [id number] 2.16.84 0.1.286880.3.579.2.1259 1946 Unknown [id number] 2.16.840 .1.882276.3.579.2.1259 1945 Unknown [id number] 2.16.8 40.1.089088.3.579.2.727 1945 Unknown [id number] 2.16.8 40.1.889415.3.579.2.727 Unknown [id number] 2.16.8 40.1.566900.3.579.2.531 Social History Date Type Detail Facility Sex Assigned At [facility] Start: 1945 Sex Assigned At Female F [facility] Start: 05-30-2024 Tobacco smoking status Ex-smoker (fi nding) [facility] Functional Status Date Assessment Result Facility 05-30-2024 Functional Status N/A [facility] Clinical Notes 10-19-2022 to 05-30-2024 Note Date & Type Note Facility 05-30-2024 Evaluation + Plan note Diagnostic Tests PendingUrine Cytology ([facility]) 05/30/24 [facility] 05-30-2024 Hospital Discharg e instructions Patient Education 05/30/2024 09:09:41 Hematuria, Adult Hematuria, Adult Hematuria is blood in the urine. Blood may be visible in the urine, or it may be identified with a test. This condition can be caused by infections of the bladder, urethra, kidney, or prostate. Other possible causes include: Kidney stones. Cancer of the urinary tract. Too much calcium in the urine. Conditions that are passed from parent to child (inherited conditions). Exercise that requires a lot of energy. Infections can usually be treated with medicine, and a kidney stone usually will pass through your urine. If neither of these is the cause of your hematuria, more tests may be needed to identify the cause of your symptoms. It is very important to tell your health care provider about any blood in your urine, even if it is painless or the blood stops without treatment. Blood in the urine, when it happens and then stops and then happens again, can be a symptom of a very serious condition, including cancer. There is no pain in the initial stages of many urinary cancers. Follow these instructions at home: Medicines Take bccs-dgm-iyszwxf and prescription medicines only as told by your health care provider. If you were prescribed an antibiotic medicine, take it as told by your health care provider. Do not stop taking the antibiotic even if you start to feel better. Eating and drinking Drink enough fluid to keep your urine pale yellow. It is recommended that you drink 3 4 quarts (2.8 3.8 L) a day. If you have been diagnosed with an infection, drinking cranberry juice in addition to large amounts of water is recommended. Avoid caffeine, tea, and carbonated beverages. These tend to irritate the bladder. Avoid alcohol because it may irritate the prostate (in males). General instructions If you have been diagnosed with a kidney stone, follow your health care provider's instructions about straining your urine to catch the stone. Empty your bladder often. Avoid holding urine for long periods of time. If you are female: ?After a bowel movement, wipe from front to back and use each piece of toilet paper only once. ?Empty your bladder before and after sex. Pay attention to any changes in your symptoms. Tell your health care provider about any changes or any new symptoms. It is up to you to get the results of any tests. Ask your health care provider, or the department that is doing the test, when your results will be ready. Keep all follow-up visits. This is important. Contact a health care provider if: You develop back pain. You have a fever or chills. You have nausea or vomiting. Your symptoms do not improve after 3 days. Your symptoms get worse. Get help right away if: You develop severe vomiting and are unable to take medicine without vomiting. You develop severe pain in your back or abdomen even though you are taking medicine. You pass a large amount of blood in your urine. You pass blood clots in your urine. You feel very weak or like you might faint. You faint. Summary Hematuria is blood in the urine. It has many possible causes. It is very important that you tell your health care provider about any blood in your urine, even if it is painless or the blood stops without treatment. Take ioce-drz-rwjzegk and prescription medicines only as told by your health care provider. Drink enough fluid to keep your urine pale yellow. This information is not intended to replace advice given to you by your health care provider. Make sure you discuss any questions you have with your health care provider. Document Revised: 04/08/2021 Document Reviewed: 04/08/2021 [employer] Patient Education 2023 [employer]. 05/30/2024 09:04:34 Cystoscopy Cystoscopy Cystoscopy is a procedure that is used to help diagnose and sometimes treat conditions that affect the lower urinary tract. The lower urinary tract includes the bladder and the urethra. The urethra is the tube that drains urine from the bladder. Cystoscopy is done using a thin, tube-shaped instrument with a light and camera at the end (cystoscope). The cystoscope may be hard or flexible, depending on the goal of the procedure. The cystoscope is inserted through the urethra, into the bladder. Cystoscopy may be recommended if you have: Urinary tract infections that keep coming back. Blood in the urine (hematuria). An inability to control when you urinate (urinary incontinence) or an overactive bladder. Unusual cells found in a urine sample. A blockage in the urethra, such as a urinary stone. Painful urination. An abnormality in the bladder found during an intravenous pyelogram (IVP) or CT scan. Cystoscopy may also be done to remove a sample of tissue to be examined under a microscope (biopsy). Tell a health care provider about: Any allergies you have. All medicines you are taking, including vitamins, herbs, eye drops, creams, and rffb-nkl-uugzbhl medicines. Any problems you or family members have had with anesthetic medicines. Any blood disorders you have. Any surgeries you have had. Any medical conditions you have. Whether you are or may be . What are the risks? Generally, this is a safe procedure. However, problems may occur, including: Infection. Bleeding. Allergic reactions to medicines. Damage to other structures or organs. What happens before the procedure? Medicines Ask your health care provider about: Changing or stopping your regular medicines. This is especially important if you are taking diabetes medicines or blood thinners. Taking medicines such as aspirin and ibuprofen. These medicines can thin your blood. Do not take these medicines unless your health care provider tells you to take them. Taking bmmf-hgw-cofeqks medicines, vitamins, herbs, and supplements. Tests You may have an exam or testing, such as: X-rays of the bladder, urethra, or kidneys. CT scan of the abdomen or pelvis. Urine tests to check for signs of infection. General instructions Follow instructions from your health care provider about eating or drinking restrictions. Ask your health care provider what steps will be taken to help prevent infection. These steps may include: ?Washing skin with a germ-killing soap. ?Taking antibiotic medicine. Plan to have a responsible adult take you home from the hospital or clinic. What happens during the procedure? You will be given one or more of the following: ?A medicine to help you relax (sedative). ?A medicine to numb the area (local anesthetic). The area around the opening of your urethra will be cleaned. The cystoscope will be passed through your urethra into your bladder. Germ-free (sterile) fluid will flow through the cystoscope to fill your bladder. The fluid will stretch your bladder so that your health care provider can clearly examine your bladder ibrahim. Your doctor will look at the urethra and bladder. Your doctor may take a biopsy or remove stones. The cystoscope will be removed, and your bladder will be emptied. The procedure may vary among health care providers and hospitals. What can I expect after the procedure? After the procedure, it is common to have: Some soreness or pain in your abdomen and urethra. Urinary symptoms. These include: ?Mild pain or burning when you urinate. Pain should stop within a few minutes after you urinate. This may last for up to 1 week. ?A small amount of blood in your urine for several days. ?Feeling like you need to urinate but producing only a small amount of urine. Follow these instructions at home: Medicines Take yqao-ber-dvtoucp and prescription medicines only as told by your health care provider. If you were prescribed an antibiotic medicine, take it as told by your health care provider. Do not stop taking the antibiotic even if you start to feel better. General instructions Return to your normal activities as told by your health care provider. Ask your health care provider what activities are safe for you. If you were given a sedative during the procedure, it can affect you for several hours. Do not drive or operate machinery until your health care provider says that it is safe. Watch for any blood in your urine. If the amount of blood in your urine increases, call your health care provider. Follow instructions from your health care provider about eating or drinking restrictions. If a tissue sample was removed for testing (biopsy) during your procedure, it is up to you to get your test results. Ask your health care provider, or the department that is doing the test, when your results will be ready. Drink enough fluid to keep your urine pale yellow. Keep all follow-up visits. This is important. Contact a health care provider if: You have pain that gets worse or does not get better with medicine, especially pain when you urinate. You have trouble urinating. You have more blood in your urine. Get help right away if: You have blood clots in your urine. You have abdominal pain. You have a fever or chills. You are unable to urinate. Summary Cystoscopy is a procedure that is used to help diagnose and sometimes treat conditions that affect the lower urinary tract. Cystoscopy is done using a thin, tube-shaped instrument with a light and camera at the end. After the procedure, it is common to have some soreness or pain in your abdomen and urethra. Watch for any blood in your urine. If the amount of blood in your urine increases, call your health care provider. If you were prescribed an antibiotic medicine, take it as told by your health care provider. Do not stop taking the antibiotic even if you start to feel better. This information is not intended to replace advice given to you by your health care provider. Make sure you discuss any questions you have with your health care provider. Document Revised: 04/21/2022 Document Reviewed: 03/20/2021 [employer] Patient Education 2023 [employer]. Follow Up Care 2024 11:11:22 With:Evgeny CHO, SHIN Bejarano, URO Address: [address] [place] [address]- [phone] When: Unknown Comments:israel cysto [facility] 05-30-2024 Note Patient Education Urology Hematuria, Adult Hematuria is blood in the urine. Blood may be visible in the urine, or it may be identified with a test. This condition can be caused by infections of the bladder, urethra, kidney, or prostate. Other possible causes include: ? Kidney stones. ? Cancer of the urinary tract. ? Too much calcium in the urine. ? Conditions that are passed from parent to child (inherited conditions). ? Exercise that requires a lot of energy. Infections can usually be treated with medicine, and a kidney stone usually will pass through your urine. If neither of these is the cause of your hematuria, more tests may be needed to identify the cause of your symptoms. It is very important to tell your health care provider about any blood in your urine, even if it is painless or the blood stops without treatment. Blood in the urine, when it happens and then stops and then happens again, can be a symptom of a very serious condition, including cancer. There is no pain in the initial stages of many urinary cancers. Follow these instructions at home: Medicines ? Take vljg-ylj-pbiuckb and prescription medicines only as told by your health care provider. ? If you were prescribed an antibiotic medicine, take it as told by your health care provider. Do not stop taking the antibiotic even if you start to feel better. Eating and drinking ? Drink enough fluid to keep your urine pale yellow. It is recommended that you drink 3?4 quarts (2.8?3.8 L) a day. If you have been diagnosed with an infection, drinking cranberry juice in addition to large amounts of water is recommended. ? Avoid caffeine, tea, and carbonated beverages. These tend to irritate the bladder. ? Avoid alcohol because it may irritate the prostate (in males). General instructions ? If you have been diagnosed with a kidney stone, follow your health care provider's instructions about straining your urine to catch the stone. ? Empty your bladder often. Avoid holding urine for long periods of time. ? If you are female: ? After a bowel movement, wipe from front to back and use each piece of toilet paper only once. ? Empty your bladder before and after sex. ? Pay attention to any changes in your symptoms. Tell your health care provider about any changes or any new symptoms. ? It is up to you to get the results of any tests. Ask your health care provider, or the department that is doing the test, when your results will be ready. ? Keep all follow-up visits. This is important. Contact a health care provider if: ? You develop back pain. ? You have a fever or chills. ? You have nausea or vomiting. ? Your symptoms do not improve after 3 days. ? Your symptoms get worse. Get help right away if: ? You develop severe vomiting and are unable to take medicine without vomiting. ? You develop severe pain in your back or abdomen even though you are taking medicine. ? You pass a large amount of blood in your urine. ? You pass blood clots in your urine. ? You feel very weak or like you might faint. ? You faint. Summary ? Hematuria is blood in the urine. It has many possible causes. ? It is very important that you tell your health care provider about any blood in your urine, even if it is painless or the blood stops without treatment. ? Take qhfh-fnr-gdstdlb and prescription medicines only as told by your health care provider. ? Drink enough fluid to keep your urine pale yellow. This information is not intended to replace advice given to you by your health care provider. Make sure you discuss any questions you have with your health care provider. Document Revised: 04/08/2021 Document Reviewed: 04/08/2021 [employer] Patient Education ? 2023 [employer] Cystoscopy Cystoscopy is a procedure that is used to help diagnose and sometimes treat conditions that affect the lower urinary tract. The lower urinary tract includes the bladder and the urethra. The urethra is the tube that drains urine from the bladder. Cystoscopy is done using a thin, tube-shaped instrument with a light and camera at the end (cystoscope). The cystoscope may be hard or flexible, depending on the goal of the procedure. The cystoscope is inserted through the urethra, into the bladder. Cystoscopy may be recommended if you have: ? Urinary tract infections that keep coming back. ? Blood in the urine (hematuria). ? An inability to control when you urinate (urinary incontinence) or an overactive bladder. ? Unusual cells found in a urine sample. ? A blockage in the urethra, such as a urinary stone. ? Painful urination. ? An abnormality in the bladder found during an intravenous pyelogram (IVP) or CT scan. Cystoscopy may also be done to remove a sample of tissue to be examined under a microscope (biopsy). Tell a health care provider about: ? Any allergies you have. ? All medicines you are taking, including vitamins, herbs, eye drops, creams, and over-th (more content not included)... [facility] 10-14-2023 Evaluation note Encounter Date Diagnosis Assessment Notes Sep, Acute bilateral thoracic back pain (ICD-10 - M54.6) [employer] [facility] Other 12-19-2023 Evaluation note* Encounter Date Diagnosis Assessment Notes [...] use, the patient reduces the risk for LA, CVA, HTN, cardiac dysrhythmias and sudden cardiac [...] smoker would recommend repeat in 12 months. [facility] Other 12-14-2023 Evaluation note* Encounter Date Diagnosis Assessment Notes Treatment Notes Treatment Clinical Notes Jul, Restrictive lung disease (ICD-10 - J98.4) [facility] Other 11-28-2023 Evaluation note* Encounter Date Diagnosis [...] Send for COVID PCR - results negative [facility] Other 10-25-2023 Evaluation note* Encounter Date Diagnosis Assessment Notes Treatment Notes Treatment Clinical Notes May, Age-related osteoporosis without current pathological fracture (ICD-10 - M81.0) [facility] Other 10-19-2023 Evaluation note* Encounter Date Diagnosis Assessment Notes Treatment Notes Treatment Clinical Notes May, Acute bilateral thoracic back pain (ICD-10 - M54.6) [facility] Other 10-18-2023 Evaluation note* Encounter Date Diagnosis [...] index [BMI] 34.0-34.9, adult (ICD-10 - Z68.34) [facility] Other 10-13-2023 Evaluation note* Encounter Date Diagnosis Assessment Notes Treatment Notes Treatment Clinical Notes May, Simple chronic bronchitis (ICD-10 - J41.0) Continue LABA/ICS Use DIMITRI as needed for cough/wheezing. Control allergies and GERD symptoms. Weight loss May, Restrictive lung disease (ICD-10 - J98.4) Weight loss important. Avoid exposure to dust, smoke and allergens. Continue treatment for DUSTIN Refer to [facility] for evaluation and treatment May, DUSTIN (obstructive sle ep apnea) (ICD-10 - G47.33) This patient is aware of the benefits associated with DUSTIN: With continued use, the patient reduces the risk for LA, CVA, HTN, cardiac dysrhythmias and sudden cardiac [...] continue exercise to achieve/maintain a normal BMI. [facility] Other 08-31-2023 Evaluation note* Encounter Date Diagnosis Assessment Notes Treatment Notes Treatment Clinical Notes Mar, Chronic bronchitis, simple (ICD-10 - J41.0) [facility] Other 08-30-2023 Evaluation note* Encounter Date Diagnosis Assessment Notes Treatment Notes Treatment Clinical Notes Mar, Chronic bronchitis, simple (ICD-10 - J41.0) [facility] Other 08-30-2023 Evaluation note* Encounter Date Diagnosis Assessment Notes Treatment Notes Treatment Clinical Notes Mar, Chronic bronchitis, simple (ICD-10 - J41.0) Mar, DOUGLAS (dyspnea on exertion) (ICD-10 - R06.09) [facility] Other 08-28-2023 Evaluation note* Encounter Date Diagnosis Assessment Notes Treatment Notes Treatment Clinical Notes Mar, Pulmonary nodule (ICD-10 - R91.1) [facility] Other 08-22-2023 Evaluation note* Encounter Date Diagnosis Assessment Notes Treatment Notes Treatment Clinical Notes Mar, Pulmonary nodule (ICD-10 - R91.1) [facility] Other 08-22-2023 Evaluation note* Encounter Date Diagnosis [...] [BMI ] 34.0-34.9, adult (ICD-10 - Z68.34) [facility] Other 08-17-2023 Evaluation note* Encounter Date Diagnosis Assessment Notes Treatment Notes Treatment Clinical Notes Mar, Acute bilateral low back pain without sciatica (ICD-10 - M54.50) [facility] Other 08-08-2023 Evaluation note* Encounter Date Diagnosis [...] 3 mo as needed. Continue weight loss [facility] Other 04-09-2023 Evaluation note* Encounter Date Diagnosis Assessment Notes Treatment Notes Treatment Clinical Notes Nov, Obstructive sleep apnea (adult) (pediatric) (ICD-10 - G47.33) AHI 34, CPAP14, [facility] Other 04-06-2023 Evaluation note* Encounter Date Diagnosis [...] use, the patient reduces the risk for LA, CVA, HTN, cardiac dysrhythmias and sudden cardiac [...] High risk medication use (ICD-10 - Z79.899) [facility] Other 03-13-2023 Evaluation note* Encounter Date Diagnosis Assessment Notes Treatment Notes Treatment Clinical Notes Oct, Acute non-recurrent maxillary sinusitis (ICD-10 - J01.00) Instructed to use Flonase NS for congestion, Tessalon for cough, Tylenol for pain and fever. Oct, Acute cough (ICD-10 - R05.1) Head upright, push fluids and Tessalon perles [facility] Other 02-28-2023 Evaluation note* Encounter Date Diagnosis Assessment Notes Treatment Notes Treatment Clinical Notes Sep, Pure hypercholestero lemia (ICD-10 - E78.00) [facility] Other Evaluation noteNo InformationNort [email or web address] Other Evaluation noteNo assessment information available [facility] Work Phone: [employer] general Narrative - Reported* Type Description Date Medical History Essential hypertension Medical History ASHD (arteriosclerotic heart dis ease) Medical History Chronic venous insufficiency Medical History Chronic bronchitis, simple Medical History High cholesterol Medical History Lumbar spondylosis Medical History Obesity (BMI 30-39.9) Medical History Obstructive sleep apnea (adult) (pediatric) [facility] Other Hismrf[facility] general Narrative - Reported* Type Description Date [...] History COLONSCOPY 2018 Hospitalization History SEE SURGICAL [facility] Other History general Narrative - Reported* Type [...] COLONSCOPY 2018 Hospitalization History SEE SURGICAL HX [facility] Other History general Narrative - Reported* Type [...] History COLONSCOPY 2018 Hospitalization History SEE SURGICAL [facility] Other Hospital course Narrative No data available for this section [facility] Discharge instructions No data available for this section [facility] Progress note No data available for this section [facility] reason for referral (narrative)* Reason Referral for COPD an d RLD Diagnosis 1 Restrictive lung dis ease (J98.4) Diagnosis 2 Chronic bronchitis, simple (J41.0) Diagnosis 3 Pulmonary nodule (R9 1.1) Diagnosis 4 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 Obesity may contribute to respiratory complaints. Clinical Notes Labs, CT, PFT [facility] Draft Other Reason for referral (narrative)* Reason Referral for persist ent thoracolumbar spine pain Diagnosis 1 Acute bilateral thor acic back pain (M54.6) Diagnosis 2 Lumbar spondylosis ( M47.816) Diagnosis 3 Age-related osteopor osis without current pathological fracture (M81.0) Referral Organization [facility] [employer] [facility] Referring Provider First Name Edwin Referring Provider Last Name Marques Referring Provider Specialty Internal Me dicine Referred Organization [facility] Referred Provider Freddie Cotton Referred Address [address], [place],[address] Referred Provider Specialty Pain Medicin e Referral Priority Routine General Notes Patient w/ known deg enerative arthritis of the spine w/ persistent moderate to severe thoracolumbar spine pain w/ paraspinal muscle spasms. Completed PT w/ some temporary improvement. Stretching, Tylenol and Tramadol helping w/ the pain. Refer for alternative treatment for persistent back pain. [facility] Other Summary Purpose Family History No Family History Records FoundNo Family History Records FoundNo Family History Records FoundNo Family History Records Found No data available for this section No data available for this section No Family History Records FoundNo Family History Records Found Advance Directives No Advanced Directives Records Found Advance Directive Response Recorded Date/ Time Advance Directives No April 11:03am Chief Complaint and Reason for Visit Chief Complaint J41.0 R06.09 Additional Source Comments REASON FOR VISIT (unrecogniz ed section and content) Medication QuestionCongestio n [phone] ATBwellnessNo InformationCPAP Equipment?4 month follow upBack SpasmsNo InformationXR resultsreferral for PTNo InformationNo InformationNo InformationCT resultsDifferent InhalerPFT resultstesting resultsback painMedicationNo InformationDexa [id number] cold/sore throatNo Information4 month Follow upHR-AtenololUpdateNo Information INFORMATION SOURCE (unrecogn ized section and content) DATE CREATED AUTHOR 01/01/2023 [facility] DATE CREATED AUTHOR AUTHOR'S ORGANIZ ATION 05/28/2023 [facility] DATE CREATED AUTHOR AUTHOR'S ORGANIZ ATION 08/05/2023 [facility] DATE CREATED AUTHOR AUTHOR'S ORGANIZ ATION 04/05/2024 [facility] EPIC DATE CREATED AUTHOR AUTHOR'S ORGANIZ ATION 06/06/2024 [facility] Care Teams (unrecognized sec tion and content) Team Status: Active Member Role Status Dates Edwin Mohan , Primary Care Provider Active Team Status: Inactive Member Role Status Dates Edwin Mohan , Primary Care Provider, Attending Pr ovider Active [...] BE BASED ON THE PRIMARY CLINICAL RECORDS. [facility] [employer] [facility]. provides no warranty or guarantee of the accuracy or completeness of information in this document.
== END 2024-06-18 07:55 | disposition home or self-care (01) ==
LOC: MAMMO 07:54
PROVIDERS: PCP Internal Medicine; Visit Provider Internal Medicine
DX: Z12.31 Encounter for screening mammogram for malignant neoplasm of breast (principal); E87.6 Hypokalemia
CPT/HCPCS: 36415; 77063; 77067; 84132

== ENCOUNTER 2024-09-29 10:24 | Outpatient (OUT) | payer MEDICARE, SELFPAY ==
--- OUTSIDE RECORDS SUMMARY | 2024-09-29 10:25 | XMS_ITS | CCD ---
Author Organization [facility]iniSyla Care Team Providers Care Slate Picker Name Role Phone Edwin oMhan Unavailable MARQUES, DR SCHULTZ Admitting Unavailable MARQUES, DR SCHULTZ Attending Unavailable MARQUES, DR SCHULTZ Primary Care Unavailable BALL, DR SCHULTZ Consulting Unavailable BALL, DR SCHULTZ Admitting Unavailable BALL, DR SCHULTZ Attending Unavailable MARQUES, DR SCHULTZ Primary Care Unavailable MARQUES, DR SCHULTZ Consulting Unavailable WEST, DR BHARTI De La Rosa Consulting Unavailable MARQUES, DR SCHULTZ Admitting Unavailable BALL, DR SCHULTZ Attending Unavailable MARQUES, DR SCHULTZ Primary Care Unavailable DO Edwin Mohan Primary Care Provider DO Edwin Mohan Attending Provider Edwin Mohan Attending Unavailable Marques, Edwin Primary Care Unavailable Edwin Mohan Admitting Unavailable Ailin CHO, Raphael Luna Attending Unavailable Ailin CHO, Anddaisy Luna Attending Unavailable Ailin CHO, Anddaisy Luna Attending Unavailable ANGEL CAMPOS Attending Unavailable ANGEL CAMPOS Attending Unavailable ANGEL CAMPOS Attending Unavailable YANY MARTINEZ Attending Unavailable EDWIN MOHAN Primary Care Physician Kari Pepper Attending Unavailable Kari Pepper Admitting Unavailable Kari Pepper Attending Unavailable Kari Pepper Referring Unavailable Kari Pepper Attending Unavailable Allergies Allergy Classification Reported Allergen(s) Allergy Type Date of Onset Reaction(s) Facility (7 sources) Cefaclor; Translations: [Ceclor] Drug Allergy Unknown [facility] Repository (20 sources) Ciprofloxacin Drug Allergy Unknown [email or web address] Other (1 source) Ciprofloxacin Drug Allergy [facility] Repository (1 source) Robafen DM Cough-Chest Congest Drug allergy (disorder) [facility] Repository (20 sources) Ceclor *CEPHALOSPORINS* Propensity to adverse reactions Unknown [email or web address] Other Medications Current Medications Medication Drug Class(es) Dates Sig (Normalized) Sig (Original) [id number] 200 actuat albuterol 0.09 mg/actuat metered dose [...] for a month, then 2x/week for maintenance, [facility]/pharmacy #[id number], 155, cm, 05/30/24 8:50:00 EDT, [...] Daily, # 30 tab(s), Refills(s) 11, Pharmacy: [facility]/pharmacy #[id number], 155, cm, 05/30/24 8:50:00 EDT, [...] Daily, # 30 tab(s), Refills(s) 6, Pharmacy: [facility]/pharmacy #[id number], 155, cm, 05/30/24 8:50:00 EDT, Height/Length Dosing, [...] Daily, # 30 tab(s), Refills(s) 11, Pharmacy: [facility]/pharmacy #[id number], 155, cm, 05/30/24 8:50:00 EDT, [...] Coronary arteriosclerosis; Translations: [Atherosclerotic heart disease of [place] coronary artery without angina pectoris] Chronic [...] current use of drug therapy; Translations: [Other care home (current) drug therapy] Episodic Other diseases of [...] 11-10-2015 Episodic Other aftercare (2 sources) 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 CPT 28571 MicroScopic Description - Adequacy - Gross Description Site ID:A color Yellow fixative Alcohol Specimen designated Clean Catch received in alcohol preservative and labeled with the patient???s name, consists of 40ml clear yellow fluid. Electronically signed by : on: 06/04/2024 15:27:59 Performed By: #### 1 [id number] #### [facility] Laboratory [address] [place] [address] Ambulatory Visit Summaryon Ambulatory Visit Summary Ambulatory Visit Summary CHELLY [...] Comments: sched cysto Where: [address] [place] [address]- [phone] Medications What How Much When Instructions New estradiol topical (Estrace 0.1 mg/ g Cream) See instructions Refills: 1 Apply a pea-sized amount to the vagina/ urethra 3x/ week for a month, then 2x/ week for maintenance Pickup at [facility]/pharmacy #[id number] New vibegron (Gemtesa 75 mg oral tablet) 1 Tablets By Mouth Every day Refills: 11 Pickup at [facility]/pharmacy #[id number] Unchanged albuterol (albuterol HFA 90 [...] physician if questions or concerns Pharmacy Information [facility]/pharmacy #[id number]: [address], [place] [id number] [phone] Allergies No active allergies Problems Ongoing - [...] the initial stages of many urinary cancers. Follo (more content not included)... Normal [facility] Urine Cytology ([facility])on Method of Extraction Bladder Urine Normal [facility] Comment on above: Performed By: #### 1 [id number] #### [facility] [address] [place] [address] Number of Jars 1 Invalid Interpretation Code [facility] Comment on above: Performed By: #### 1 [id number] #### [facility] [address] [place] [address] Specimen Clean Catch Normal [facility] Comment on above: Performed By: #### 1 [id number] #### [facility] [address] [place] [address] Type of Service Technical Only Normal Fi [facility] Comment on above: Performed By: #### 1 [id number] #### [facility] Laboratory [address] [place] [address] Urology Office/Clinic Noteon 05-30-2024 Urology Office/Clinic Note Urology Office/Clinic Note Chief Complaint Patient in [facility] due to hematuria HPI Staff 79 year [...] and tri (more content not included)... Normal [facility] Comment on above: Result Comment: Elec tronically Signed By: Kari Pepper MD\.br\Date and Time Signed: 05/30/24 10:40 EDT\.br\Electronically Co-Signed By: Manuela Emanuel\.br\Date and Time Co-Signed: 05/30/24 09:17 EDT MG MAMM SCREEN 3D JESSENIA CADon 05-25-2022 MG MAMM SCREEN 3D JESSENIA CAD Patient: CHELLY ALLEN Exam Date: 05/25/2022 : 1945 Gender:F Ordering : DR EDWIN MOHAN D.O. Admission #: [id number] Family : Order #: [id number] CLICK HERE TO VIEW EXAM RADIOLOGY REPORT [...] Treatments None Family Cancers None LOCATION: [facility] BREAST COMPOSITION: Scattered areas fibroglandular [...] MD on 05/26/2022 at 07:48 Normal [facility] CBC AUTO DIFFon 03-27-2022 BASO # 0.0 103/ul Normal 0.0-0.1 [facility] Comment on above: Performed By: #### C BC #### [facility] [address] [place] [address] Dr. Eduardo Segura Basophils/100 WBC (Bld) 0.3 % Normal 0.2-2.0 [facility] Comment on above: Performed By: #### C BC #### [facility] [address] [place] [address] Dr. Eduardo Segura EO # 0.3 103/ul Normal 0.0-0.7 [facility] Comment on above: Performed By: #### C BC #### [facility] [address] [place] [address] Dr. Eduardo Segura Eosinophils/100 WBC (Bld) 4.3 % Normal 0.9-7.0 [facility] Comment on above: Performed By: #### C BC #### [facility] [address] [place] [address] Dr. Eduardo Segura Erythrocyte distribution width (RBC) [Ratio] 13.7 % Normal 11.0-15.0 [facility] Comment on above: Performed By: #### C BC #### [facility] [address] [place] [address] Dr. Eduardo Segura Hematocrit (Bld) [Volume fraction] 42.6 % Normal 36.0-48.0 [facility] Comment on above: Performed By: #### C BC #### [facility] [address] [place] [address] Dr. Eduardo Segura Hemoglobin (Bld) [Mass/Vol] 14.1 g/dL Normal 12.0-16.0 [facility] Comment on above: Performed By: #### C BC #### [facility] [address] [place] [address] Dr. Eduardo Segura IG # 0.02 10e3/ul Normal 0.00-0.03 [facility] Comment on above: Performed By: #### C BC #### [facility] [address] [place] [address] Dr. Eduardo Segura IG % 0.3 % Normal 0.0-0.5 [facility] Comment on above: Performed By: #### C BC #### [facility] [address] [place] [address] Dr. Eduardo Segura LYMPH # 2.3 103/ul Normal 1.2-3.8 [facility] Comment on above: Performed By: #### C BC #### [facility] [address] [place] [address] Dr. Eduardo Segura Lymphocytes/100 WBC (Bld) 31.9 % Normal 20.5-60.0 [facility] Comment on above: Performed By: #### C BC #### [facility] [address] [place] [address] Dr. Eduardo Segura MANUAL DIFF REQ NO Normal [facility] Comment on above: Performed By: #### C BC #### [facility] [address] [place] [address] Dr. Eduardo Segura MCH (RBC) [Entitic mass] 31.1 pg Normal 26.7-34.0 [facility] Comment on above: Performed By: #### C BC #### [facility] [address] [place] [address] Dr. Eduardo Segura MCHC (RBC) [Mass/Vol] 33.1 g/dL Normal 29.9-35.2 [facility] Comment on above: Performed By: #### C BC #### [facility] [address] [place] [address] Dr. Eduardo Segura MCV (RBC) [Entitic vol] 94.0 fL Normal 81.0-99.0 [facility] Comment on above: Performed By: #### C BC #### [facility] [address] [address] [address] Eduardo Segura MONO # 0.6 103/ul Normal 0.3-0.8 [facility] Comment on above: Performed By: #### C BC #### [facility] [address] [place] [address] Dr. Eduardo Segura Monocytes/100 WBC (Bld) 7.7 % Normal 1.7-12.0 [facility] Comment on above: Performed By: #### C BC #### [facility] [address] [place] [address] Dr. Eduardo Segura NEUT # 4.0 103/ul Normal 1.4-6.5 [facility] Comment on above: Performed By: #### C BC #### [facility] [address] [place] [address] Dr. Eduardo Segrua Neutrophils/100 WBC (Bld) 55.5 % Normal 43.0-75.0 [facility] Comment on above: Performed By: #### C BC #### [facility] [address] [place] [address] Dr. Eduardo Segura Platelet mean volume (Bld) [Entitic vol] 10.2 fL Normal 9.5-13.5 [facility] Comment on above: Performed By: #### C BC #### [facility] [address] [place] [address] Dr. Eduardo Segura PLT 286 103/ul Normal 150-450 [facility] Comment on above: Performed By: #### C BC #### [facility] [address] [place] [address] Dr. Eduardo Segura RBC 4.53 106/ul Normal 4.20-5.40 [facility] Comment on above: Performed By: #### C BC #### [facility] [address] [address] [address] Eduardo Segura WBC 7.2 103/ul Normal 4.0-11.0 [facility] Comment on above: Performed By: #### C BC #### [facility] [address] [address] [address] Eduardo Segura GLYCOHEMOGLOBIN A1Con 2021 ADA RECOMMENDATION SEE BELOW Normal [facility] Comment on above: Result Comment: ADA RECOMMENDED LIMIT 4.0 - 6.0 ADA THERAPEUTIC TARGET < 7.0 ACTION SUGGESTED > 7.0 Performed By: #### A 1C #### [facility] [address] [place] [address] Dr. Eduardo Segura Glucose [Mass/Vol] 134 mg/dL Normal [facility] Comment on above: Performed By: #### A 1C #### [facility] [address] [place] [address] Dr. Eduardo Segura HbA1c (Bld) [Mass fraction] 6.3 % Critically high 4.5-6.2 [facility] Comment on above: Performed By: #### A 1C #### [facility] [address] [place] [address] Dr. Eduardo Segura LIPID PROFILEon 03-27-2022 CHOL-HDL RATIO NORM SEE BELOW Normal [facility] Comment on above: Result Comment: 3.3 - 4.4 LOW RISK 4.4 - 7.1 AVERAGE RISK 7.1 - 11.0 MODERATE RISK >11.0 HIGH RISK Performed By: #### B MP, LIPID, ALT #### [facility] [address] [place] [address] Dr. Eduardo Segura Cholesterol [Mass/Vol] 154 mg/dL Normal <=200 [facility] Comment on above: Performed By: #### B MP, LIPID, ALT #### [facility] [address] [place] [address] Dr. Eduardo Segura Cholesterol in HDL [Mass/Vol] 60 mg/dL Normal 40-60 [facility] Comment on above: Performed By: #### B MP, LIPID, ALT #### [facility] [address] [address] [address] Eduardo Segura Cholesterol in LDL [Mass/Vol] 75.4 mg/dL Normal [facility] Comment on above: Performed By: #### B MP, LIPID, ALT #### [facility] [address] [address] [address] Eduardo Segura Cholesterol.total/C holesterol in HDL [Mass ratio] 2.6 {ratio} Normal [facility] Comment on above: Performed By: #### B MP, LIPID, ALT #### [facility] [address] [address] [address] Eduardo Segura HDL NORMAL > or = 60 mg/dl - LO W CARDIOVASCULAR RISK <40 mg/dl - HIGH CARDIOVASCULAR RISK Normal [facility] Comment on above: Performed By: #### B MP, LIPID, ALT #### [facility] [address] [address] [address] Eduardo Segura LDL CALC NORMAL SEE BELOW Normal [facility] Comment on above: Result Comment: <100 mg/dl OPTIMAL 100 - 129 mg/dl NEAR OR ABOVE OPTIMAL 130 - 159 mg/dl BORDERLINE HIGH 160 - 189 mg/dl HIGH >190 mg/dl VERY HIGH Performed By: #### B MP, LIPID, ALT #### [facility] [address] [address] [address] Eduardo Segura Triglyceride [Mass/Vol] 93 mg/dL Normal <=150 [facility] Comment on above: Performed By: #### B MP, LIPID, ALT #### [facility] [address] [address] [address] Eduardo Segura VLDL CALC 18.6 mg/dL Normal [facility] Comment on above: Performed By: #### B MP, LIPID, ALT #### [facility] [address] [address] [address] Eduardo Segura PROF CHEM 8 (BAS METB)on Anion gap [Moles/Vol] 15.0 mmol/L Normal [facility] Comment on above: Performed By: #### B MP, LIPID, ALT #### [facility] [address] [address] [address] Eduardo Segura Calcium [Mass/Vol] 9.8 mg/dL Normal 8.5-10.1 [facility] Comment on above: Performed By: #### B MP, LIPID, ALT #### [facility] [address] [address] [address] Eduardo Segura Chloride [Moles/Vol] 105 mmol/L Normal 98-107 [facility] Comment on above: Performed By: #### B MP, LIPID, ALT #### [facility] [address] [address] [address] Eduardo Segura CO2 [Moles/Vol] 25.2 mmol/L Normal 21.0-32.0 [facility] Comment on above: Performed By: #### B MP, LIPID, ALT #### [facility] [address] [address] [address] Eduardo Segura Creatinine [Mass/Vol] 0.77 mg/dL Normal 0.55-1.02 [facility] Comment on above: Performed By: #### B MP, LIPID, ALT #### [facility] [address] [address] [address] Eduardo Segura EGFR-AF EQUATORIAL GUINEAN >60 Normal >=60 [facility] Comment on above: Performed By: #### B MP, LIPID, ALT #### [facility] [address] [address] [address] Eduardo Segura EGFR-NON AF EQUATORIAL GUINEAN >60 Normal >=60 [facility] Comment on above: Performed By: #### B MP, LIPID, ALT #### [facility] [address] [address] [address] Eduardo Segura Glucose [Mass/Vol] 142 mg/dL Critically high 74-106 [facility] Comment on above: Performed By: #### B MP, LIPID, ALT #### [facility] [address] [address] [address] Eduardo Segura Potassium [Moles/Vol] 4.2 mmol/L Normal 3.5-5.1 [facility] Comment on above: Performed By: #### B MP, LIPID, ALT #### [facility] [address] [address] [address] Eduardo Segura Sodium [Moles/Vol] 141 mmol/L Normal 136-145 [facility] Comment on above: Performed By: #### B MP, LIPID, ALT #### [facility] [address] [address] [address] Eduardo Segura Urea nitrogen [Mass/Vol] 17.0 mg/dL Normal 7.0-18.0 [facility] Comment on above: Performed By: #### B MP, LIPID, ALT #### [facility] [address] [address] [address] Eduardo Segura Urea nitrogen/Creatinine [Mass ratio] 22.1 mg/mg Normal [facility] Comment on above: Performed By: #### B MP, LIPID, ALT #### [facility] [address] [address] [address] Eduardo Segura [facility] 03-27-2022 ALT [Catalytic activity/Vol] 20 U/L Normal 14-59 [facility] Comment on above: Performed By: #### B MP, LIPID, ALT #### [facility] [address] [place] [address] Dr. Eduardo Segura Vital Signs Date Time Vital Sign Value Performing Clinician Facility 08-09-2023 15:00-0500 Body height 165.1 cm Edwin Mohan Other [facility] Other 08-09-2023 15:00-0500 Body mass index (BMI) [Ratio] 32.88 kg/m2 Edwin Mohan Other [facility] Other 08-09-2023 15:00-0500 Body weight 89.63 kg Edwin Mohan Other [facility] Other 08-09-2023 15:00-0500 Diastolic blood pressure 94 mm[Hg] Edwin [employer] Other [facility] Other 08-09-2023 15:00-0500 Respiratory rate 12 /min Edwin Ball Other [facility] Other 08-09-2023 15:00-0500 Systolic blood pressure 134 mm[Hg] Edwin Ball Other [facility] Other 06-08-2023 14:15-0400 Body height 165.1 cm Edwin Ball Other [facility] Other 06-08-2023 14:15-0400 Body mass index (BMI) [Ratio] 33.71 kg/m2 Edwin Ball Other [facility] Other 06-08-2023 14:15-0400 Body weight 91.9 kg Edwin Ball Other [facility] Other 06-08-2023 14:15-0400 Diastolic blood pressure 82 mm[Hg] Edwin Ball Other [facility] Other 06-08-2023 14:15-0400 Respiratory rate 12 /min Edwin Ball Other [facility] Other 06-08-2023 14:15-0400 Systolic blood pressure 128 mm[Hg] Edwin Ball Other [facility] Other 06-03-2023 11:30-0400 Body height 165.1 cm Edwin Ball Other [facility] Other 06-03-2023 11:30-0400 Body mass index (BMI) [Ratio] 33.71 kg/m2 Edwin Ball Other [facility] Other 06-03-2023 11:30-0400 Body weight 91.9 kg Edwin Ball Other [facility] Other 06-03-2023 11:30-0400 Diastolic blood pressure 80 mm[Hg] Edwin Ball Other [facility] Other 06-03-2023 11:30-0400 Respiratory rate 12 /min Edwin Ball Other [facility] Other 06-03-2023 11:30-0400 Systolic blood pressure 130 mm[Hg] Edwin Ball Other [facility] Other 04-12-2023 10:45-0400 Body height 165.1 cm Edwin Ball Other [facility] Other 04-12-2023 10:45-0400 Body mass index (BMI) [Ratio] 34.61 kg/m2 Edwin Ball Other [facility] Other 04-12-2023 10:45-0400 Body weight 94.35 kg Edwin Ball Other [facility] Other 04-12-2023 10:45-0400 Diastolic blood pressure 74 mm[Hg] Edwin Ball Other [facility] Other 04-12-2023 10:45-0400 Respiratory rate 20 /min Edwin Ball Other [facility] Other 04-12-2023 10:45-0400 Systolic blood pressure 116 mm[Hg] Edwin Ball Other [facility] Other 03-29-2023 10:30-0400 Body height 165.1 cm Edwin Ball Other [facility] Other 03-29-2023 10:30-0400 Body mass index (BMI) [Ratio] 34.48 kg/m2 Edwin Ball Other [facility] Other 03-29-2023 10:30-0400 Body weight 93.99 kg Edwin Ball Other [facility] Other 03-29-2023 10:30-0400 Diastolic blood pressure 70 mm[Hg] Edwin Ball Other [facility] Other 03-29-2023 10:30-0400 Respiratory rate 12 /min Edwin Ball Other [facility] Other 03-29-2023 10:30-0400 Systolic blood pressure 158 mm[Hg] Edwin Ball Other [facility] Other 11-25-2022 11:30-0400 Body height 165.1 cm Edwin Ball Other [facility] Other 11-25-2022 11:30-0400 Body mass index (BMI) [Ratio] 35.61 kg/m2 Edwin Ball Other [facility] Other 11-25-2022 11:30-0400 Body weight 97.07 kg Edwin Ball Other [facility] Other 11-25-2022 11:30-0400 Diastolic blood pressure 76 mm[Hg] Edwin Ball Other [facility] Other 11-25-2022 11:30-0400 Respiratory rate 12 /min Edwin Ball Other [facility] Other 11-25-2022 11:30-0400 Systolic blood pressure 126 mm[Hg] Edwin Ball Other [facility] Other Encounters Encounter Date Encounter Type Care Provider Facility Start: 07-12-2024 End: 07-12-2024 ambulatory Kari Pepper Facility:CD:[id number] Start: 05-30-2024 End: 05-30-2024 Lab Drop off [facility] Start: 05-30-2024 End: 05-30-2024 ambulatory Kari Pepper Facility:[facility] Start: 05-30-2024 End: 05-30-2024 Patient encounter procedure Kari Pepper [facility] Start: 05-18-2024 ambulatory Kari Pepper Facility:[facility] Start: 04-03-2024 End: 04-03-2024 ambulatory ANGEL CAMPOS Not Available Start: 01-17-2024 End: 01-17-2024 ambulatory ANGEL CAMPOS Not Available Start: 10-14-2023 End: 10-14-2023 ambulatory Edwin Mohan Other [facility] Other Start: 10-14-2023 Telephone encounter Edwin Ball [facility] [facility] Start: 09-19-2023 End: 09-19-2023 ambulatory ANGEL CAMPOS Not Available Start: 08-12-2023 End: 08-12-2023 ambulatory Edwin Ball Other [email or web address] Other Start: 08-12-2023 Telephone encounter Edwin Ball [facility] Start: 08-11-2023 End: 08-11-2023 ambulatory Edwin Ball Other [email or web address] Other Start: 08-11-2023 Telephone encounter Edwin Ball [facility] Start: 08-09-2023 End: 08-09-2023 ambulatory Edwin Ball Other [email or web address] Other Start: 08-09-2023 Office outpatient vi sit 25 minutes Edwin Ball [facility] Start: 08-04-2023 End: 08-04-2023 ambulatory Edwin Mohan Other [email or web address] Other Start: 08-04-2023 Telephone encounter Edwin Mohan [facility] Start: 08-02-2023 End: 08-02-2023 ambulatory YANY MARTINEZ Not Available Start: 07-25-2023 End: 07-26-2023 ambulatory Raphael Parisi MD Facility:[facility] Start: 07-19-2023 End: 07-19-2023 ambulatory Edwin Mohan Other [email or web address] Other Start: 07-19-2023 Office outpatient vi sit 15 minutes Edwin Mohan [facility] Start: 06-20-2023 End: 06-21-2023 ambulatory Raphael Parisi MD Facility:[facility] Start: 06-16-2023 End: 06-16-2023 ambulatory Edwin Mohan Other [email or web address] Other Start: 06-16-2023 Telephone encounter Edwin Mohan [facility] Start: 06-15-2023 End: 06-15-2023 ambulatory Edwin Mohan Other [email or web address] Other Start: 06-15-2023 Telephone encounter Edwin Mohan [facility] Start: 06-13-2023 End: 06-14-2023 ambulatory Raphael Parisi MD Facility:[facility] Start: 06-09-2023 End: 06-09-2023 ambulatory Edwin Mohan Other [email or web address] Other Start: 06-09-2023 Telephone encounter Edwin Mohan [facility] Start: 06-08-2023 End: 06-08-2023 ambulatory Edwin Ball Other [email or web address] Other Start: 06-08-2023 Office outpatient vi sit 15 minutes Edwin Ball [facility] Start: 06-03-2023 End: 06-03-2023 ambulatory Edwin Ball Other [email or web address] Other Start: 06-03-2023 Office outpatient vi sit 25 minutes Edwin Ball [facility] Start: 05-25-2023 End: 05-25-2023 ambulatory Edwin Ball Other [email or web address] Other Start: 05-25-2023 Telephone encounter Edwin Ball [facility] Start: 05-23-2023 End: 05-23-2023 ambulatory Edwin Ball Facility:[facility] Start: 05-23-2023 End: 05-23-2023 ambulatory DO Edwin Ball Work Phone: [facility] Work Phone: Start: 05-23-2023 End: 05-23-2023 Patient encounter procedure DO Edwin Ball Work Phone: [facility] Work Phone: Start: 04-21-2023 End: 04-21-2023 ambulatory Edwin Ball Other [email or web address] Other Start: 04-21-2023 Telephone encounter Edwin Ball [facility] Start: 04-20-2023 End: 04-20-2023 ambulatory Edwin Ball Other [email or web address] Other Start: 04-20-2023 Telephone encounter Edwin Ball [facility] Start: 04-18-2023 End: 04-18-2023 ambulatory Edwin Ball Other [email or web address] Other Start: 04-18-2023 Telephone encounter Edwin Ball [facility] Start: 04-12-2023 End: 04-12-2023 ambulatory Edwin Ball Other [email or web address] Other Start: 04-12-2023 Office outpatient vi sit 15 minutes Edwin Ball [facility] Start: 04-12-2023 Telephone encounter Edwin Ball [facility] Start: 04-07-2023 End: 04-07-2023 ambulatory Edwin Mohan Other [email or web address] Other Start: 04-07-2023 Telephone encounter Edwin Mohan [facility] Start: 03-29-2023 End: 03-29-2023 ambulatory Edwin Ball Other [email or web address] Other Start: 03-29-2023 Office outpatient vi sit 15 minutes Edwin Ball [facility] Start: 01-08-[address] EDWIN MOHAN Facili ty:[facility] Start: 11-30-2022 End: 11-30-2022 ambulatory Edwin Mohan Other [email or web address] Other Start: 11-30-2022 Telephone encounter Edwin Mohan [facility] Start: 11-28-2022 End: 11-28-2022 ambulatory Edwin Mohan Other [email or web address] Other Start: 11-28-2022 Telephone encounter Edwin Ball [facility] Start: 11-25-2022 End: 11-25-2022 ambulatory Edwin Mohan Other [email or web address] Other Start: 11-25-2022 Patient encounter procedure Edwin Mohan [facility] Start: 11-08-2022 End: 11-08-2022 ambulatory Edwin Mohan Other [email or web address] Other Start: 11-08-2022 Telephone encounter Edwin Ball [facility] Start: 11-01-2022 End: 11-01-2022 ambulatory Edwin Ball Other [email or web address] Other Start: 11-01-2022 Office outpatient vi sit 15 minutes Edwin Ball [facility] Start: 10-19-2022 End: 10-19-2022 ambulatory Edwin Ball Other [email or web address] Other Start: 10-19-2022 Telephone encounter Edwin Ball [facility] Start: 07-22-2022 Adult health examination Edwin Mohan Other [email or web address] Other Start: 05-25-2022 End: 05-26-[address] [...] Immunization Date Immunization Notes Care Provider Fa micah 05-20-2024 tetanus toxoid, redu mitzi diphtheria toxoid, and acellular pertussis vaccine, adsorbed Kari Lue [facility] 05-10-2024 influenza virus vaccine, unspecified formulation Kari Lue [facility] 04-08-2024 zoster vaccine recombinant Kari Lue [facility] 05-17-2023 influenza virus vaccine, unspecified formulation Kari Lue [facility] 07-03-2022 influenza, high dose seasonal, preservative-free Edwin Mohan Other [email or web address] Other 06-23-2022 influenza, high dose seasonal, preservative-free Edwin Mohan Other [email or web address] Other 06-23-2022 influenza virus vaccine, unspecified formulation Kari Pepper [facility] 05-18-2022 COVID-19 Pfizer (bivalent) Edwin Mohan Other [facility] 12-12-2021 COVID-19 Pfizer Edwin kurtz Other [email or web address] Other 12-12-2021 COVID-19 Vaccine Pfi zer - Documentation Purposes Only Edwin Mohan Other [email or web address] Other 12-12-2021 SARS-CoV-2 mRNA (zdieelrxduq-qszx-fcuzz se) vaccine Kari Pepper [facility] 07-21-2021 influenza virus vaccine, split virus (incl. purified surface antigen) Edwin Marques Other [email or web address] Other 05-22-2021 COVID-19 Vaccine Pfi zer - Documentation Purposes Only Edwin Marques Other [facility] Comment on above: Result Comment: 2023: [id number] 10-08-2020 COVID-19 Vaccine Pfi zer - Documentation Purposes Only Edwin Marques Other [facility] Comment on above: Result Comment: 2023: [id number] 09-17-2020 COVID-19 Vaccine Moderna - Documentation Purposes Only Edwin Mohan Other [email or web address] Other 09-17-2020 COVID-19 Vaccine Pfi zer - Documentation Purposes Only Edwin Mohan Other [facility] Comment on above: Result Comment: 2023: [id number] 04-30-2020 influenza virus vaccine, split virus (incl. purified surface antigen) Edwin Mohan Other [email or web address] Other 05-18-2019 pneumococcal polysaccharide vaccine, 23 valent Edwin Mohan Other [email or web address] Other 05-01-2018 pneumococcal polysaccharide vaccine, 23 valent Edwin Mohan Other [facility] 08-02-2017 diphtheria, tetanus toxoids and acellular pertussis vaccine, unspecified formulation Edwin Mohan Other [email or web address] Other 11-20-2016 pneumococcal polysaccharide vaccine, 23 valent Kari Evgeny [facility] 06-05-2015 pneumococcal conjuga te vaccine, 13 valent Edwin Mohan Other [email or web address] Other 06-04-2015 pneumococcal conjuga te vaccine, 13 valent Edwin Mohan Other [email or web address] Other Payers Date Payer Category Payer Self-pay 2023 Private Health Insurance [id number] 2022 Medicare 2022 Private Health Insurance 1958 Medicare [id number] 2.1 [id number] 1959 Private Health Insurance CLI [id number] 1945 Unknown [id number] 2.16.84 [id number] 1945 Unknown [id number] 2.16.84 0.1.762481.3.579.2.593 1945 Unknown [id number] 2.16.84 0.1.092936.3.579.2.593 1945 Unknown [id number] 2.16. [id number] 1945 Unknown [id number] 2.16. 840.1.053265.3.579.2.196 1945 Unknown [id number] 2.16. 840.1.848687.3.579.2.196 1945 Unknown [id number] 2.16.84 0.1.153522.3.579.2.1259 1946 Unknown [id number] 2.16.84 0.1.821191.3.579.2.1259 1946 Unknown [id number] 2.16.84 0.1.443041.3.579.2.1259 1946 Unknown [id number] 2.16.840 .1.273364.3.579.2.1259 1945 Unknown [id number] 2.16.8 40.1.053215.3.579.2.727 1945 Unknown [id number] 2.16.8 40.1.320003.3.579.2.727 1945 Unknown [id number] 2.16.8 40.1.441460.3.579.2.727 Unknown [id number] 2.16.8 40.1.459639.3.579.2.531 Social History Date Type Detail [facility] 1945 Sex Assigned At Female F [facility] Start: 05-30-2024 Tobacco smoking status Ex-smoker (fi nding) [facility] Functional Status Date Assessment Result Facility 05-30-2024 Functional Status N/A [facility] Clinical Notes 10-19-2022 to 05-30-2024 Note Date & Type Note Facility 05-30-2024 Evaluation + Plan note Diagnostic Tests PendingUrine Cytology ([facility]) 05[facility] 05[facility]24 Hospital Discharg e instructions Patient Education [...] Follow these instructions at home: Medicines Take dkpz-tcy-shjanvh and prescription medicines only as told by [...] or the blood stops without treatment. Take pigj-rxu-zoajdpv and prescription medicines only as told by your health care provider. Drink enough fluid to keep your urine pale yellow. This information is not intended to replace advice given to you by your health care provider. Make sure you discuss any questions you have with your health care provider. Document Revised: 04/08/2021 Document Reviewed: 04/08/2021 [employer] Patient Education 2023 ROLI. 05/30/2024 09:04:34 Cystoscopy Cystoscopy Cystoscopy is a [...] including vitamins, herbs, eye drops, creams, and iist-cez-lzjzcny medicines. Any problems you or family members [...] provider tells you to take them. Taking sztz-awj-jbgopym medicines, vitamins, herbs, and supplements. Tests You [...] Follow these instructions at home: Medicines Take zxgb-jvz-bczfabp and prescription medicines only as told by [...] provider. Document Revised: 04/21/2022 Document Reviewed: 03/20/2021 [employer] Patient Education 2023 ROLI. Follow Up Care 2024 11:11:22 With:Kari Pepper MD, URL, [facility] Address: [address] [place] [phone] When: Unknown Comments:sched cysto [facility] 05-30-2024 Note Patient Education Urology Hematuria, Adult [...] these instructions at home: Medicines ? Take dtah-fna-bywepaz and prescription medicines only as told by [...] the blood stops without treatment. ? Take lfng-bxe-iklbpho and prescription medicines only as told by your health care provider. ? Drink enough fluid to keep your urine pale yellow. This information is not intended to replace advice given to you by your health care provider. Make sure you discuss any questions you have with your health care provider. Document Revised: 04/08/2021 Document Reviewed: 04/08/2021 [employer] Patient Education ? 2023 [employer] Cystoscopy Cystoscopy is a procedure that [...] creams, and over-th (more content not included)... [facility] 10-14-2023 Evaluation note Encounter Date Diagnosis Assessment Notes Sep, Acute bilateral thoracic back pain (ICD-10 - M54.6) [email or web address] Other 12-19-2023 Evaluation note* Encounter Date Diagnosis [...] use, the patient reduces the risk for CA, CVA, HTN, cardiac dysrhythmias and sudden cardiac [...] smoker would recommend repeat in 12 months. [email or web address] Other 12-14-2023 Evaluation note* Encounter Date Diagnosis Assessment Notes Treatment Notes Treatment Clinical Notes Jul, Restrictive lung disease (ICD-10 - J98.4) [email or web address] Other 11-28-2023 Evaluation note* Encounter Date Diagnosis [...] Send for COVID PCR - results negative [email or web address] Other 10-25-2023 Evaluation note* Encounter Date Diagnosis Assessment Notes Treatment Notes Treatment Clinical Notes May, Age-related osteoporosis without current pathological fracture (ICD-10 - M81.0) [email or web address] Other 10-19-2023 Evaluation note* Encounter Date Diagnosis Assessment Notes Treatment Notes Treatment Clinical Notes May, Acute bilateral thoracic back pain (ICD-10 - M54.6) [email or web address] Other 10-18-2023 Evaluation note* Encounter Date Diagnosis [...] index [BMI] 34.0-34.9, adult (ICD-10 - Z68.34) [email or web address] Other 10-13-2023 Evaluation note* Encounter Date Diagnosis Assessment Notes Treatment Notes Treatment Clinical Notes May, Simple chronic bronchitis (ICD-10 - J41.0) Continue LABA/ICS Use DIMITRI as needed for cough/wheezing. Control allergies and GERD symptoms. Weight loss May, Restrictive lung disease (ICD-10 - J98.4) Weight loss important. Avoid exposure to dust, smoke and allergens. Continue treatment for DUSTIN Refer to Medical Radiation Therapist for evaluation and treatment May, DUSTIN (obstructive sle ep apnea) (ICD-10 - G47.33) This patient is aware of the benefits associated with DUSTIN: With continued use, the patient reduces the risk for CA, CVA, HTN, cardiac dysrhythmias and sudden cardiac [...] continue exercise to achieve/maintain a normal BMI. [email or web address] Other 08-31-2023 Evaluation note* Encounter Date Diagnosis Assessment Notes Treatment Notes Treatment Clinical Notes Mar, Chronic bronchitis, simple (ICD-10 - J41.0) [email or web address] Other 08-30-2023 Evaluation note* Encounter Date Diagnosis Assessment Notes Treatment Notes Treatment Clinical Notes Mar, Chronic bronchitis, simple (ICD-10 - J41.0) [email or web address] Other 08-30-2023 Evaluation note* Encounter Date Diagnosis Assessment Notes Treatment Notes Treatment Clinical Notes Mar, Chronic bronchitis, simple (ICD-10 - J41.0) Mar, DOUGLAS (dyspnea on exertion) (ICD-10 - R06.09) [email or web address] Other 08-28-2023 Evaluation note* Encounter Date Diagnosis Assessment Notes Treatment Notes Treatment Clinical Notes Mar, Pulmonary nodule (ICD-10 - R91.1) [email or web address] Other 08-22-2023 Evaluation note* Encounter Date Diagnosis Assessment Notes Treatment Notes Treatment Clinical Notes Mar, Pulmonary nodule (ICD-10 - R91.1) [email or web address] Other 08-22-2023 Evaluation note* Encounter Date Diagnosis [...] [BMI ] 34.0-34.9, adult (ICD-10 - Z68.34) [email or web address] Other 08-17-2023 Evaluation note* Encounter Date Diagnosis Assessment Notes Treatment Notes Treatment Clinical Notes Mar, Acute bilateral low back pain without sciatica (ICD-10 - M54.50) [email or web address] Other 08-08-2023 Evaluation note* Encounter Date Diagnosis [...] 3 mo as needed. Continue weight loss [email or web address] Other 04-09-2023 Evaluation note* Encounter Date Diagnosis Assessment Notes Treatment Notes Treatment Clinical Notes Nov, Obstructive sleep apnea (adult) (pediatric) (ICD-10 - G47.33) AHI 34, CPAP14, [email or web address] Other 04-06-2023 Evaluation note* Encounter Date Diagnosis [...] use, the patient reduces the risk for CA, CVA, HTN, cardiac dysrhythmias and sudden cardiac [...] High risk medication use (ICD-10 - Z79.899) [email or web address] Other 03-13-2023 Evaluation note* Encounter Date Diagnosis Assessment Notes Treatment Notes Treatment Clinical Notes Oct, Acute non-recurrent maxillary sinusitis (ICD-10 - J01.00) Instructed to use Flonase NS for congestion, Tessalon for cough, Tylenol for pain and fever. Oct, Acute cough (ICD-10 - R05.1) Head upright, push fluids and Tessalon perles [email or web address] Other 02-28-2023 Evaluation note* Encounter Date Diagnosis Assessment Notes Treatment Notes Treatment Clinical Notes Sep, Pure hypercholestero lemia (ICD-10 - E78.00) [email or web address] Other Evaluation noteNo InformationNort [employer] Other Evaluation noteNo assessment information available [facility] Work Phone: History general Narrative - Reported* Type Description Date Medical History Essential hypertension Medical History ASHD (arteriosclerotic heart dis ease) Medical History Chronic venous insufficiency Medical History Chronic bronchitis, simple Medical History High cholesterol Medical History Lumbar spondylosis Medical History Obesity (BMI 30-39.9) Medical History Obstructive sleep apnea (adult) (pediatric) [email or web address] Other History general Narrative - Reported* Type [...] COLONSCOPY 2018 Hospitalization History SEE SURGICAL HX [email or web address] Other History general Narrative - Reported* Type [...] COLONSCOPY 2018 Hospitalization History SEE SURGICAL HX [email or web address] Other History general Narrative - Reported* Type [...] COLONSCOPY 2018 Hospitalization History SEE SURGICAL HX [email or web address] Other Hospital course Narrative No data available for this section [facility] Hospital Discharge instructions No data available for this section [facility] note No data available for this section [facility] reason for referral (narrative)* Reason Referral for COPD an d RLD Diagnosis 1 Restrictive lung dis ease (J98.4) Diagnosis 2 Chronic bronchitis, simple (J41.0) Diagnosis 3 Pulmonary nodule (R9 1.1) Diagnosis 4 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 Obesity may contribute to respiratory complaints. Clinical Notes Labs, CT, PFT [email or web address] Other Reason for referral (narrative)* Reason Referral for persist ent thoracolumbar spine pain Diagnosis 1 Acute bilateral thor acic back pain (M54.6) Diagnosis 2 Lumbar spondylosis ( M47.816) Diagnosis 3 Age-related osteopor osis without current pathological fracture (M81.0) Referral Organization [facility] Referring Provider First Name Edwin Referring Provider Last Name Marques Referring Provider Specialty Internal Al dicine Referred Organization [facility] Referred Provider Freddie Cotton Referred Address [address] [place], [place],[address] Referred Provider Specialty Pain Medicin e Referral Priority Routine General Notes Patient w/ known deg enerative arthritis of the spine w/ persistent moderate to severe thoracolumbar spine pain w/ paraspinal muscle spasms. Completed PT w/ some temporary improvement. Stretching, Tylenol and Tramadol helping w/ the pain. Refer for alternative treatment for persistent back pain. [email or web address] Other Summary Purpose Family History No Family [...] ed section and content) Medication QuestionCongestio n [phone] ATBwellnessNo InformationCPAP Equipment?4 month follow upBack SpasmsNo InformationXR resultsreferral for PTNo InformationNo InformationNo InformationCT resultsDifferent InhalerPFT resultstesting resultsback painMedicationNo InformationDexa [phone] cold/sore throatNo Information4 month Follow upHR-AtenololUpdateNo Information INFORMATION SOURCE (unrecogn ized section and content) DATE CREATED AUTHOR [facility]01/2023 [facility] DATE CREATED AUTHOR AUTHOR'S ORGANIZ ATION 05/28/2023 [facility] DATE CREATED AUTHOR AUTHOR'S ORGANIZ ATION 08/05/2023 [facility] DATE CREATED AUTHOR AUTHOR'S ORGANIZ ATION 04/05/2024 [facility] DATE CREATED AUTHOR AUTHOR'S ORGANIZ ATION 06/06/2024 [facility] DATE CREATED AUTHOR AUTHOR'S ORGANIZ ATION 07/26/2024 [facility] Care Teams (unrecognized sec tion and content) [...] BE BASED ON THE PRIMARY CLINICAL RECORDS. [employer] [facility]. provides no warranty or guarantee of the accuracy or completeness of information in this document.
[2024-09-29 11:08] LABS: Alanine Aminotransferase 17 U/L (14-59); Albumin Globulin Ratio 0.9; Albumin Level 3.5 g/dL (3.4-5.0); Alkaline Phosphatase 107 U/L (46-116); Anion Gap 11.6; Aspartate Amino Transferase 16 U/L (15-37); BUN Creatinine Ratio 18.3; Bilirubin Total 0.6 mg/dL (0.2-1.0); Calcium 9.5 mg/dL (8.5-10.1); Carbon Dioxide 28.8 mmol/L (21.0-32.0); Chloride 105 mmol/L (98-107); Estimated GFR (African America >60 (>=60 mL/min/1.73m^2); Estimated GFR (Non-African Ame >60 (>=60 mL/min/1.73m^2); Globulin 3.9 g/dL; Glucose 106 mg/dL (74-106); Potassium 4.4 mmol/L (3.5-5.1); Sodium 141 mmol/L (136-145); Total Protein 7.4 g/dL (6.4-8.2)
== END 2024-09-29 10:25 | disposition home or self-care (01) ==
LOC: LAB 10:24
PROVIDERS: PCP Internal Medicine; Visit Provider Internal Medicine
DX: I25.10 Atherosclerotic heart disease of native coronary artery without angina pectoris (principal); E11.65 Type 2 diabetes mellitus with hyperglycemia; Z79.899 Other long term (current) drug therapy
CPT/HCPCS: 36415; 80053

== ENCOUNTER 2025-04-05 08:44 | Outpatient (OUT) | payer MEDICARE, SELFPAY ==
--- OUTSIDE RECORDS SUMMARY | 2025-04-05 08:50 | XMS_ITS | Clinical Summary ---
Author Organization [facility] Healthcare Address [address] [place] [address] Care Team Providers Care Production Editor Name Role Phone Edwin Mohan DO Primary Care Provider [phone] Allergies Active Allergy Reactions Criticality Noted Date Comments Cefaclor Hives Low 02/08/2023 Ciprofloxacin Hives Low 02/08/2023 Dextromethorphan Hbr Other Low 08/02/2023 joint tightness Medications atenolol (Tenormin) 25 MG tablet Take 25 mg by mouth in the morning. 3 Active atorvastatin (Lipitor) 20 MG tablet TAKE 1 TABLET BY MOUTH EVERY DAY FOR 90 DAYS 3 Active benzonatate (Tessalon) 200 MG capsule TAKE 1 CAPSULE BY MOUTH 3 TIMES A DAY FOR 10 DAYS 3 Active hydroCHLOROthia zide (HYDRODiuril) 25 MG tablet Take 25 mg by mouth in the morning. 3 Active losartan (Cozaar) 100 MG tablet Take 100 mg by mouth in the morning. 3 Active omeprazole (PriLOSEC) [address] capsule TAKE 1 CAPSULE BY MOUTH EVERY MORNING ON EMPTY STOMACH FOLLOWED IN 30 MINUTES BY BREAKFAST 3 Active albuterol HFA 90 mcg/act inhaler INHALE 2 PUFFS EVERY 4 HOURS NEEDED FOR COUGH/ SHORT OF BREATH 3 Active losartan-hydroC HLOROthiazide (Hyzaar) 100-25 MG tablet TAKE 1 TABLET BY MOUTH EVERY DAY Oral for 90 Active Lifitegrast (Xiidra) 5 % solutionIndicat ions:Keratoconj unctivitis sicca of both eyes not specified as Sjogren's Administer 1 drop into affected eye(s) in the morning and at noon 180 each 3 Active Active Problems Problem Noted Date Diagnosed Date Keratoconjunctivitis sicca o f both eyes not specified as Sjogren's 04/03/2024 DUSTIN (obstructive sleep apnea) 08/02/2023 ILD (interstitial lung disease) 08/02/2023 Pulmonary emphysema 08/02/2023 Diplopia 02/08/2023 Dry eyes 02/08/2023 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/08/2023 Resolved Problems Problem Noted Date Diagnosed Date Resolved Date Fu's neuroma of right foot 08/02/2023 08/02/2023 PCO (posterior capsular opac ification), bilateral 02/08/2023 04/03/2024 Immunizations Immunization Administration Dates Next Due Influenza, High-dose Seasona l, Quadrivalent, Preservative Free 06/23/2022 Influenza, Seasonal, Quadrivalent, Adjuvanted Pneumococcal Polysaccharide PPSV23 05/01/2018, SARS-COV-2 (COVID-19) vaccin e, mRNA, spike protein, LNP, PF, leif-sucrose, 30 mcg/0.3 mL 05/23/2023 SARS-COV-2 (COVID-19) vaccin e, mRNA, spike protein, LNP, bivalent, preservative free, 30 mcg/0.3 mL dose, leif-sucrose formulation 05/18/2022 Unknown outside immunization 04/30/2020 Family History Medical History Relation Name Comments Diabetes Father Heart disease Father Macular degeneration Father Stroke Father adult respiratory distress syndrome Mother Relation Name Status Comments Father Mother Social History Tobacco Use Types Packs/Day Years Used Date Smoking Tobacco: Former Cigarettes Smokeless Tobacco: Never Tobacco Cessation:Counseling Given: Not Answered Alcohol Use Standard Drinks/Week Comments Never 0 (1 standard drink = 0.6 oz pur e alcohol) caffeine intake: coffee Comments Unknown Sex and Gender Information Value Date Recorded Sex Assigned at Not on file Legal Sex Female 8:34 PM EDT Gender Identity Not on file Sexual Orientation Not on file Last Filed Vital Signs Vital Sign Reading Time Taken Comments Blood Pressure 147/81 08/02/2023 1:07 PM EST Pulse 56 08/02/2023 1:07 PM EST Temperature - - Respiratory Rate - - Oxygen Saturation 98% 08/02/2023 1:07 PM EST Inhaled Oxygen Concentration - - Weight 90.7 kg (200 lb) 08/02/2023 1:07 PM EST Height 154.9 cm (5' 1 ) 08/02/2023 1:07 PM EST Body Mass Index 37.79 08/02/2023 1:07 PM EST Plan of Treatment Health Maintenance Due Date Last Done Comments Influenza Vaccine (#1) 2025 4, 05/17/2023, 07/03/2022, Additional history exists Pneumococcal Vaccine: 65+ Years Completed 05/18/2019, 05/01/2018, 11/20/2016, Additional history exists Insurance MEDICARE [employer] Care Teams Production Editor Relationship Specialty Start Date End Date Edwin Mohan DO PCP - General Internal Medicine 08/02/23
--- OUTSIDE RECORDS SUMMARY | 2025-04-05 08:50 | XMS_ITS | Encounter Summary ---
Author Organization [facility] [address] [place] [address] Care Team Providers Care Scratcher Name Role Phone Edwin Mohan DO Primary Care Provider [phone] Encounter Details Date Type Department Care Team (Late st Contact Info) Description 06/16/2023 Orders Only [facility] [address] [place] [id number] Edwin Mohan DO [address] [place] [id number] Social History Tobacco Use Types Packs/Day Years Used Date Smoking Tobacco: Former Cigarettes Comments Unknown Sex and Gender Information Value Date Recorded Sex Assigned at Not on file Legal Sex Female 8:34 PM EDT Gender Identity Not on file Sexual Orientation Not on file documented as of this encounter Plan of Treatment Not on file documented as of this encounter Procedures Procedure Name Priority Date/Time Associated Diagnosis Comments CT CHEST WO IV CONTRAST Routine 04/19/2023 3:08 PM EDT documented in this encounter Results * CT chest wo IV contrast (04/19/2023 3:08 PM EDT) Anatomical Region Laterality Modality Body, Chest Computed Tomogra phy us Edwin Mohan DO IMG CT PROCEDURES Final Resul t documented in this encounter Visit Diagnoses Not on filedocumented in this encounter Care Teams Scratcher Relationship Specialty Start Date End Date Edwin Mohan DO PCP - General Internal Medicine 08/02/23 documented as of this encounter
--- OUTSIDE RECORDS SUMMARY | 2025-04-05 08:51 | XMS_ITS | CCD ---
Author Organization [facility] Care Team Providers Care Floor Coverer Apprentice Name Role Phone Edwin Mohan Unavailable MARQUES, DR SCHULTZ Admitting Unavailable MARQUES, DR SCHULTZ Attending Unavailable MARQUES, DR SCHULTZ Primary Care Unavailable MARQUES, DR SCHULTZ Consulting Unavailable MARQUES, DR SCHULTZ Admitting Unavailable MARQUES, DR SCHULTZ Attending Unavailable MARQUES, DR SCHULTZ Primary Care Unavailable MARQUES, DR SCHULTZ Consulting Unavailable WEST, DR BHARTI De La Rosa Consulting Unavailable MARQUES, DR SCHULTZ Admitting Unavailable MARQUES, DR SCHULTZ Attending Unavailable MARQUES, DR SCHULTZ Primary Care Unavailable DO Edwin Mohan Primary Care Provider [phone] DO Edwin Mohan Attending Provider [phone] Ailin CHO, Raphael Luna Attending Unavailable Ailin CHO, Anddaisy Luna Attending Unavailable Ailin CHO, Anddaisy Luna Attending Unavailable ANGEL CAMPOS Attending Unavailable ANGEL CAMPOS Attending Unavailable ANEGL CAMPOS Attending Unavailable YANY MARTINEZ Attending Unavailable EDWIN MOHAN Primary Care Physician [phone] Kari Pepper Attending Unavailable Kari Pepper Admitting Unavailable Kari Pepper Attending Unavailable Edwin Mohan DO Primary Care Provider Roberto Johnson APRN Emergency Provider Wilfred Orozco DO Attending Provider [phone] Edwin Mohan DO Primary Care Provider [phone] Wilfred Orozco DO Attending Provider Edwin Mohan DO Attending Provider [phone] Edwin Mohan Primary Care Unavailable Wilfred Orozco Admitting Unavailable Wilfred Orozco Attending Unavailable Wilfred Orozco Attending Unavailable Edwin Mohan Primary Care Unavailable Wilfred Orozco Admitting Unavailable Wilfred Orozco Attending Unavailable Edwin Mohan Primary Care Unavailable Wilfred Orozco Admitting Unavailable Edwin Mohan Primary Care Unavailable Roberto Johnson Admitting Unavailable Roberto Johnson Attending Unavailable Genevieve Jernigan Attending Unavailable Galrenato Lacey J Admitting Unavailable Galrenato Lacey J Attending Unavailable Vickey, Lacey J Attending Unavailable Kari Pepper Referring Unavailable Kari Pepper Attending Unavailable Genevieve Jernigan Attending Unavailable Genevieve Jernigan Attending Unavailable Genevieve Jernigan Admitting Unavailable Genevieve Jernigan Attending Unavailable Galea, Lacey J Admitting Unavailable Galea, Lacey J Attending Unavailable Allergies Allergy Classification Reported Allergen(s) Allergy Type Date of Onset Reaction(s) Facility (7 sources) Cefaclor; Translations: [Ceclor] Drug Allergy Unknown [facility] Repository (20 sources) Ciprofloxacin; Translations: [ciprofloxacin] Drug Allergy 11-04-19 Weal (disorder) [facility] (4 sources) Ciprofloxacin; Translations: [Cipro] Drug Allergy [facility] Repository (1 source) Robafen DM Cough-Chest Congest Drug allergy (disorder) [facility] Repository (20 sources) Ceclor *CEPHALOSPORINS* Propensity to adverse reactions Unknown [facility] Other (9 sources) Cephalosporins (Antibiotic); Translations: [Cephalosporins] Allergy to substance 11-04-19 Unknown Reaction [facility] (6 sources) Cefaclor; Translations: [cefaclor] Drug Allergy Weal (disorder) [facility] (1 source) Ciprofloxacin Drug Allergy 01-29-20 [facility] Repository Medications Current Medications Medication Drug Class(es) Dates Sig (Normalized) Sig (Original) albuterol HFA 90 mcg/inh MDI (4 sources) Start: 04-20-2023 albuterol HFA 90 mcg/inh MDI Refill(s) 0, Respiratory (Inhalation), 0 Refill(s) Start Date: 04/20/23 Status: Ordered Repeat number: 1 Start: 04-20-2023 albuterol HFA 90 mcg/inh MDI Refill(s) 0, Respiratory (Inhalation), 0 Refill(s) Start Date: 04/20/23 Status: Ordered amoxicillin 875 mg / clavulanate 125 mg oral tablet (20 sources) Penicillin-class Antibacterial Start: 02-07-2025 take 1 tablet by mouth every twelve hours Start: 10-31-2023 End: 01-02-2024 take 1 tablet by mouth every twelve hours Amoxicillin-Pot Clavulanate 875-125 mg tablet Discontinued 1 TAB PO Every 12 hours 14 7 November 08, 2023 2:40pm November 17, 2023 9:36am Start: 11-01-2022 take 1 tablet by yovany th every twelve hours Amoxicillin-Pot Clavulanate 875-125 MG 1 tablet Orally every 12 hrs w/ food for 5 days Oct, Not-Taking/PRN Anoro Ellipta 62.5 mcg-25 mc g inhalation powder (4 sources) Start: 05-30-2024 Start: 05-30-2024 aspirin 81 mg oral capsule (4 sources) Platelet Aggregation Inhibitor, Nonsteroidal Anti-inflammatory Drug Start: 05-30-2024 take 1 mg by mouth every twenty-four hours aspirin 81 mg oral capsule mg cap(s), Oral, q24hr, Refills(s) 0 Start Date: 05/30/24 Status: Ordered Repeat number: 1 atorvastatin 20 mg oral tablet (20 sources) HMG-CoA Reductase Inhibitor Start: 08-16-2024 take 1 tablet by mouth once daily in the evening Start: 09-20-2022 End: 08-16-2024 atorvastatin 20 mg Tab 90 EA , 0 Refill(s), TAKE 1 TABLET BY MOUTH EVERY EVENING, Refills(s) 0 Start Date: 05/30/24 Status: Ordered Repeat number: 1 azithromycin 250 mg oral tablet (6 sources) Macrolide Antimicrobial Start: 07-19-2023 Azithromycin 250 MG as directed Orally daily for 5 days Jun, Active baclofen 10 mg oral tablet (20 sources) gamma-Aminobutyric Acid-ergic Agonist Start: 04-07-2023 take 1-2 tablets by mouth once at bedtime Baclofen 10 MG 1-2 tablets Orally q HS for 15 days Mar, Active bisoprolol fumarate 5 mg oral tablet (20 sources) beta-Adrenergic Dwayne Start: 09-09-2024 End: 09-17-2024 take 0.5 tablet by mouth once daily Start: 08-13-2024 End: 09-09-2024 take 2.5 mg by mouth once daily Bisoprolol Fumarate 5 mg tablet Discontinued 2.5 MG PO Daily August 13, 2024 1:00am September 09, 2024 10:16am Blood-Glucose Meter (Accu-Chek Guide Glucose Meter) misc (8 sources) Start: 12-22-2023 Blood-Glucose Meter (Accu-Chek Guide Glucose Meter) misc Active 0 .Route 1 December 22, 2023 12:00am Use to test home BS qd escitalopram 10 mg oral tablet (20 sources) Serotonin Reuptake Inhibitor Start: 07-26-2024 End: 01-10-2025 take 1 tablet by mouth once daily Start: 02-02-2024 End: 07-26-2024 escitalopram 10 mg Tab 90 EA , 0 Refill(s), TAKE 1 TABLET BY MOUTH EVERY DAY, Refills(s) 0 Start Date: 05/30/24 Status: Ordered Repeat number: 1 [facility] at [facility] Escitalopram Oxalate 10 MG TAKE 1 TABLET BY MOUTH EVERYDAY AT BEDTIME for 90 Not-Taking/PRN estradiol 0.1 mg/ml vaginal cream (4 sources) Estrogen Start: 05-30-2024 Estrace 0.1 mg /g Cream See Instructions, 42.5 gm, Refill(s) 1, Apply a pea-sized amount to the vagina/urethra 3x/week for a month, then 2x/week for maintenance, [facility]/pharmacy #[id number], 155, cm, 05/30/24 8:50:00 EDT, Height/Length Dosing, 81, kg, 05/30/24 8:50:00 EDT, Weight Dosing Start Date: 05/30/24 Status: Ordered Quantity: 42.5 Unit: g Repeat number: 2 loratadine 10 mg oral tablet (20 sources) Start: 10-31-2023 take 1 tablet by mouth once daily take 1 capsule by mo [facility] every twenty-four hours Loratadine 10 MG 1 capsule Orally Once a day Active 24 hr mirabegron 50 mg extended release oral tablet (2 sources) beta3-Adrenergic Agonist Start: 05-30-2024 take 1 tablet by mouth once daily mirabegron 50 mg oral tablet, extended release 50 mg = 1 tab(s), Oral, Daily, # 30 tab(s), Refills(s) 11, Pharmacy: [facility]/pharmacy #[id number], 155, cm, 05/30/24 8:50:00 EDT, Height/Length Dosing, 81, kg, 05/30/24 8:50:00 EDT, Weight Dosing Start Date: 05/30/24 Status: Ordered omeprazole 40 mg delayed release oral capsule (20 sources) Proton Pump Inhibitor Start: 08-14-2024 take 1 capsule by mouth once daily in the morning Start: 05-30-2024 omeprazole 40 mg Cap-DR 90 EA, 0 Refill(s), TAKE 1 CAPSULE BY MOUTH EVERY MORNING ON EMPTY STOMACH FOLLOWED IN 30 MINUTES BY BREAKFAST 90, Refills(s) 0 Start Date: 05/30/24 Status: Ordered Repeat number: 1 Start: 10-31-2023 End: 08-14-2024 take 1 capsule by mouth once daily Omeprazole 40 mg capsule,delayed release(DR/EC) Discontinued 40 MG PO Daily October 31, 2023 12:00am August 14, 2024 8:00am Omeprazole 40 MG TAKE 1 CAPSULE BY MOUTH EVERY MORNING ON EMPTY STOMACH FOLLOWED IN 30 MINUTES BY BREAKFAST for 90 Active microencapsulated potassium chloride 20 meq extended release oral tablet (9 sources) Start: 04-20-2024 take 1 tablet by yovany th once daily Start: 12-28-2023 End: 04-20-2024 Potassium Chloride (Klor-Con M20) 20 mEq tablet,ER particles/crystals Discontinued 20 MEQ PO Daily December 28, 2023 12:00am April 20, 2024 6:47am Potassium Chloride (Klor-Con M20) 20 mEq tablet,ER particles/crystals (7 sources) Start: 04-20-2024 take 1 tablet by mouth once daily Potassium Chloride (Klor-Con M20) 20 mEq tablet,ER particles/crystals Active 0 .ROUTE .COMPLEX 90 April 20, 2024 6:47am TAKE 1 TABLET BY MOUTH EVERY DAY FOR 30 DAYS rosuvastatin calcium 5 mg oral tablet (20 sources) HMG-CoA Reductase Inhibitor Start: 10-31-2023 take 1 tablet by mouth once daily in the evening take 1 tablet by yovany th once daily in the evening Rosuvastatin Calcium 5 MG TAKE 1 TABLET BY MOUTH EVERY EVENING Active traMADol hydrochloride 50 mg oral tablet (20 sources) Opioid Agonist Start: 12-20-2023 End: 11-09-2024 traMADOL 50 mg Tab Refills(s) 0 Start Date: 05/30/24 Status: Ordered Repeat number: 1 Start: 06-09-2023 End: 06-20-2024 take 1 tablet by mouth every six hours as needed for pain Tramadol 50 mg tablet Discontinued 50 MG PO Every 6 hours as needed for pain 20 03October 06, 2023 1:00am June 20, 2024 8:52pm Start: 04-12-2023 take 1 tablet by yovany [...] Daily, # 30 tab(s), Refills(s) 6, [id number], cm, 05/30/24 8:50:00 EDT, Height/Length Dosing, 81, kg, 05/30/24 8:50:00 EDT, Weight Dosing Start Date: 05/30/24 Status: Ordered valACYclovir 1000 mg oral tablet (8 sources) Herpesvirus Nucleoside Analog DNA Polymerase Inhibitor, Herpes Simplex Virus Nucleoside Analog DNA Polymerase Inhibitor, Herpes Zoster Virus Nucleoside Analog DNA Polymerase Inhibitor Start: 01-09-2024 vibegron 75 MG Oral Tablet [Gemtesa] (2 sources) Start: 05-30-2024 take 1 tablet by mouth once daily Gemtesa 75 mg oral tablet 75 mg = 1 tab(s), Oral, Daily, # 30 tab(s), Refills(s) 11, Pharmacy: [facility]/pharmacy #[id number], 155, cm, 05/30/24 8:50:00 EDT, Height/Length Dosing, 81, kg, 05/30/24 8:50:00 EDT, Weight Dosing Start Date: 05/30/24 Status: Ordered Completed/Discontinued Medications Medication Drug Class(es) Dates Sig (Normalized) Sig (Original) acetaminophen 325 mg / oxyCODONE hydrochloride 5 mg oral tablet (8 sources) Opioid Agonist Start: 11-03-2024 End: 11-09-2024 take 1 tablet by mouth every eight hours as needed for pain Oxycodone-Acetamin ophen (Percocet) 5-325 mg tablet Discontinued 1 TAB PO Every 8 hours as needed for pain 10 3 November 03, 2024 November 09, 2024 4:30pm [id number] 200 actuat albuterol 0.09 mg/actuat metered dose inhaler (20 sources) beta2-Adrenergic Agonist Start: 10-31-2023 End: 08-13-2024 take 1 puff(s) by inhalation every four hours as needed for wheezing Albuterol Sulfate 90 mcg/actuation HFA aerosol inhaler Discontinued 2 PUFF INHALATION Every 4 hours as needed for shortness of breath or wheezing 8.5 30 January 09, 2024 10:26am August 13, 2024 12:13pm Start: 04-21-2023 take 2 puff(s) by in halation every [...] COUGH/ SHORT OF BREATH for 25 Active amoxicillin 875 mg oral tablet (8 sources) Penicillin-class Antibacterial Start: 07-30-2024 End: 11-05-2024 take 1 tablet by mouth twice daily Amoxicillin 875 mg tablet Discontinued 875 MG PO Twice daily 14 July 30, 2024 1:00am November 05, 2024 2:09pm atenolol 25 mg oral tablet (20 sources) beta-Adrenergic Dwayne Start: 08-13-2024 End: 08-13-2024 Atenolol 25 mg tablet Discontinued 12.5 MG PO Daily 45 90 August 13, 2024 11:40am August 13, 2024 11:49am Start: 08-07-2024 End: 08-13-2024 take 1 tablet by mouth once daily Atenolol 25 mg tablet Discontinued 25 MG PO Daily 90 August 07, 2024 6:29pm August 13, 2024 11:40am Start: 08-06-2024 End: 08-07-2024 take 1 tablet by mouth once daily Atenolol 25 mg tablet Discontinued 0 .ROUTE .COMPLEX August 06, 2024 11:53pm August 07, 2024 6:30pm TAKE 1 TABLET BY MOUTH EVERY DAY Start: 10-31-2023 End: 08-06-2024 Atenolol 25 mg tablet Discon tinued 12.5 MG PO Daily October 31, 2023 12:00am August 06, 2024 11:53pm Start: 08-12-2023 take 0.5 tablet by m outh once daily Atenolol 25 MG 1/2 tablet Orally Once a day for 30 days Jul, Active take 1 tablet by yovany once daily Atenolol 25 MG TAKE 1 TABLET BY MOUTH EVERY DAY for 90 Active benzonatate 200 mg oral capsule (20 sources) Non-narcotic Antitussive Start: 10-31-2023 End: 11-05-2024 take 1 capsule by mouth three times daily Benzonatate 200 mg capsule Discontinued 200 MG PO Three times daily October 31, 2023 12:00am November 05, 2024 2:09pm Start: 11-01-2022 take 1 capsule by mo lah every eight hours Benzonatate 200 MG 1 capsule Orally Three times a day for 10 Oct, Active Blood-Glucose Meter (Onetouc h Verio Flex Meter) misc (8 sources) Start: 12-21-2023 End: 12-22-2023 Blood-Glucose Meter (Onetouc h Verio Flex Meter) misc Discontinued 0 .Route December 21, 2023 12:00am December 22, 2023 4:18pm As directed cycloSPORINE Opth 0.05% Emul (4 sources) Start: 05-30-2024 cycloSPORINE O pth 0.05% Emul drop(s), q12hr, Refill(s) 0 Start Date: 05/30/24 Status: Ordered Repeat number: 1 Start: 05-30-2024 cycloSPORINE O pth 0.05% Emul drop(s), q12hr, Refill(s) 0 Start Date: 05/30/24 Status: Ordered doxycycline hyclate 100 mg oral capsule (8 sources) Tetracycline-class Drug Start: 07-30-2024 End: 07-30-2024 take 1 capsule by mouth twice daily Doxycycline Hyclate 100 mg capsule Discontinued 100 MG PO Twice daily July 30, 2024 1:00am July 30, 2024 6:07pm fluconazole 150 mg oral tablet (10 sources) Azole Antifungal Start: 03-12-2025 fluconazole 150 mg Tab 150 mg = 1 tab(s), Oral, Once, If symptoms persist after 72 hours, may repeat dose. If symptoms persist after another 72 hours, may repeat 3rd and final dose., # 1 tab(s), Refills(s) 2, Pharmacy: [facility]/pharmacy #[id number], 155, cm, 03/12/25 11:55:00 EDT, Height/Length Dosing, 81.2, kg, 03/12/25 11:55:00 EDT, Weight Dosing Start Date: 03/12/25 Status: Ordered Quantity: 1.0 Unit: tab(s) Repeat number: 3 Indications: Gross hematuria; Start: 11-08-2023 End: 01-02-2024 take 1 tablet by mouth once daily Fluconazole 150 mg tablet Discontinued 150 MG PO Daily 2 November 08, 2023 12:00am January 02, 2024 9:58am Fluticasone Propion-Salmeterol (19 sources) Corticosteroid, beta2-Adrenergic Agonist Start: 10-31-2023 End: 01-02-2024 Fluticasone Propion-Salmeterol 250-50 mcg/dose blister with device Discontinued 1 INH INHALATION Twice daily October 31, 2023 12:00am January 02, 2024 9:58am Start: 06-03-2023 take 1 puff(s) by in halation twice daily Wixela Inhub 250-50 MCG/ACT 1 puff Inhalation Twice a day for 30 days May, Active hydroCHLOROthiazide 25 mg oral tablet (20 sources) Thiazide Diuretic Start: 05-30-2024 hydrochlorothiazide 25 mg Tab 90 EA, 0 Refill(s), TAKE 1 TABLET BY MOUTH EVERY DAY, Refills(s) 0 Start Date: 05/30/24 Status: Ordered Repeat number: 1 Start: 05-20-2024 take 1 tablet by yovany th once daily Start: 10-31-2023 End: 05-20-2024 take 1 tablet by mouth once daily Hydrochlorothiazide 25 mg tablet Discontinued 25 MG PO Daily October 31, 2023 12:00am May 20, 2024 5:55pm take 1 tablet by yovany th once daily hydroCHLOROthiazide 25 MG TAKE 1 [...] Refills(s) 0 Start Date: 05/30/24 Status: Ordered Repeat number: 1 Start: 05-20-2024 take 1 tablet by yovany th once daily Start: 10-31-2023 End: 05-20-2024 take 1 tablet by mouth once daily Losartan 100 mg tablet Discontinued 100 MG PO Daily October 31, 2023 12:00am May 20, 2024 5:55pm take 1 tablet by yovany th once daily Losartan Potassium 100 MG TAKE 1 TABLET BY MOUTH EVERY DAY for 90 Active nitrofurantoin, macrocrystals 25 mg / nitrofurantoin, monohydrate 75 mg oral capsule (8 sources) Nitrofuran Antibacterial Start: 04-20-2024 End: 07-30-2024 take 1 capsule by mouth twice daily at mealtime Nitrofurantoin Monohyd/M-Cryst (Macrobid) 100 mg capsule Discontinued 100 MG PO Twice daily 05 26April 20, 2024 12:00am July 30, 2024 5:55pm must administer with a meal/food 24 hr oxybutynin chloride 10 mg extended release oral tablet (20 sources) Cholinergic Muscarinic Antagonist Start: 10-31-2023 End: 01-02-2024 take 1 tablet by mouth once daily Oxybutynin Chloride 10 mg tablet extended release 24hr Discontinued 10 MG PO Daily October 31, 2023 12:00am January 02, 2024 10:19am take 1 tablet by yovany th every twenty-four hours oxyBUTYnin Chloride ER 10 MG 1 tablet Orally Once a day Active sulfamethoxazole 800 mg / trimethoprim 160 mg oral tablet (8 sources) Dihydrofolate Reductase Inhibitor Antibacterial, Sulfonamide Antimicrobial Start: 12-09-2023 End: 01-02-2024 take 1 tablet by mouth twice daily Sulfamethoxazole-Trimethoprim 800-160 mg tablet Discontinued 1 TAB PO Twice daily 10 5 December 09, 2023 12:00am January 02, 2024 10:19am Suprep Bowel Prep Kit 17.5-3.13-1.6 GM/180ML (20 [...] a day for 2 day(s) Apr, Not-Taking 24 hr tolterodine tartrate 2 mg extended release oral capsule (20 sources) Cholinergic Muscarinic Antagonist Start: 10-31-2023 End: 01-02-2024 take 1 capsule by mouth once daily Tolterodine 2 mg capsule,extended release 24hr Discontinued 2 MG PO Daily October 31, 2023 12:00am January 02, 2024 10:19am take 1 capsule by [facility] every twenty-four hours Tolterodine Tartrate ER 2 MG 1 capsule Orally Once a day Active triamcinolone acetonide 40 mg/ml injectable suspension (20 sources) Corticosteroid Start: 03-29-2023 Kenalog-40 Mar, 40 mg 7 actuat umeclidinium 0.0625 mg/actuat / vilanterol 0.025 mg/actuat dry powder inhaler (20 sources) Anticholinergic, beta2-Adrenergic Agonist Start: 10-31-2023 End: 01-02-2024 Umeclidinium-Vilante rol (Anoro Ellipta) 62.5-25 mcg/actuation blister with device Discontinued 1 INH INHALATION Daily October 31, 2023 12:00am January 02, 2024 9:58am take 1 puff(s) by inhalation onc e daily Anoro Ellipta 62.5-25 MCG/ACT 1 puff Inhalation Once a day for 30 days Active take 1 puff(s) by inhalation onc e daily Anoro Ellipta 62.5-25 MCG/ACT 1 puff Inhalation Once a day for 30 days Active Problems Active Problems Problem Classification Problem Date Documented Da te Episodic/Chronic Anxiety disorders (2 sources) Generalized anxiety disorder; Translations: [Generalized anxiety disorder] Chronic Cardiac dysrhythmias (12 sources) Bradycardia; Translations: [Bradycardia, unspecified] 08-13-2024 Episodic Chronic obstructive pulmonary disease and bronchiectasis (20 sources) Simple chronic bronchitis; Translations: [Simple chronic bronchitis] Chronic Coronary atherosclerosis and other heart disease (20 sources) Coronary arteriosclerosis; Translations: [Atherosclerotic heart disease of [place] coronary artery without angina pectoris] Chronic Diabetes mellitus with complications (20 sources) Type 2 diabetes mellitus; Translations: [Type 2 diabetes mellitus with hyperglycemia] Onset: 03-27-2022 Chronic Disorders of lipid metabolism (20 sources) Pure hypercholesterolemia ; Translations: [Pure hypercholesterolemia , unspecified] Onset: 03-29-2022 Chronic Diverticulosis and diverticulitis (11 sources) Diverticulitis of colon; Translations: [Diverticulitis of large intestine without perforation or abscess without bleeding] Onset: 05-01-2018 05-30-2024 Chronic Esophageal disorders (20 sources) Gastro-esophageal reflux disease with esophagitis; Translations: [Gastroesophageal reflux disease with esophagitis without hemorrhage] 10-31-2023 Chronic Essential hypertension (20 sources) Essential hypertension; Translations: [Essential (primary) hypertension] Onset: 03-29-2022 Chronic Fracture of upper limb (20 sources) Elbow fracture; Translations: [Unspecified fracture of lower end of unspecified humerus, initial encounter for closed fracture] Onset: 11-03-2024 11-03-2024 Episodic Genitourinary symptoms and ill-defined conditions (9 sources) Incontinence; Translations: [Mixed incontinence] Onset: 05-30-2024 05-30-2024 Chronic Genitourinary symptoms and ill-defined conditions (20 sources) Oliguria and anuria; Translations: [Anuria and oliguria] Onset: 2016 05-30-2024 Episodic Immunizations and screening for infectious disease (2 sources) Vaccination given; Translations: [Encounter for immunization] Episodic Menopausal disorders (7 sources) Primary ovarian failure; Translations: [Other primary [...] current use of drug therapy; Translations: [Other jail (current) drug therapy] Episodic Other diseases of bladder and urethra (2 sources) Overactive bladder; Translations: [Overactive bladder] Chronic Other diseases of kidney and ureters (8 sources) Stricture of ureter; Translations: [Crossing vessel and stricture of ureter without hydronephrosis] Onset: 11-07-2017 05-28-2024 Episodic Other diseases of veins and lymphatics (20 sources) Peripheral venous insufficiency; Translations: [Venous insufficiency (chronic) (peripheral)] 10-31-2023 Episodic Other diseases of veins and lymphatics (1 source) Venous insufficiency (chronic) (peripheral) Episodic Other ear and sense organ disorders (8 sources) Impacted cerumen; Translations: [Impacted cerumen, unspecified ear] 08-13-2024 Episodic Other ear and sense organ disorders (4 sources) Impacted cerumen, unspecified ear; Translations: [Impacted cerumen] 08-13-2024 Episodic Other injuries and conditions due to external causes (2 sources) History of fall; Translations: [History of falling] Episodic Other lower respiratory disease (8 sources) Interstitial lung disease; Translations: [Interstitial pulmonary disease, unspecified] 06-20-2024 Chronic Other lower respiratory disease (7 sources) Interstitial pulmonary disease, unspecified; Translations: [Postinflammatory pulmonary fibrosis] 11-05-2024 Chronic Other lower respiratory disease (20 sources) Nodule of lung; Translations: [Solitary pulmonary nodule] 04-04-2024 Episodic Comment on above: CT chest: 4mm nodule - 03/2023, 03/2024 Other lower respiratory disease (11 sources) Solitary pulmonary nodule; Translations: [Solitary pulmonary nodule] Episodic Other lower respiratory disease (1 source) Other forms of dyspnea Episodic Other lower respiratory disease (10 sources) Other disorders of lung; Translations: [Other diseases of lung, not elsewhere classified] Episodic Other lower respiratory disease (9 sources) Restrictive lung disease; Translations: [Other disorders of lung] 10-31-2023 Episodic Other non-traumatic joint disorders (20 sources) [...] mass index (BMI) 33.0-33.9, adult Chronic Other screening for suspected conditions (not mental disorders or infectious disease) (16 sources) Encounter for screening mammogram for malignant neoplasm of breast; Translations: [Patient encounter status] Onset: 05-25-2022 Episodic Other skin disorders (2 sources) Hypertrophic condition of skin; Translations: [Other hypertrophic disorders of the skin] Episodic Other upper respiratory disease (8 sources) Vasomotor rhinitis; Translations: [Vasomotor rhinitis] 08-13-2024 Chronic Other upper respiratory disease (4 sources) Vasomotor rhinitis; Translations: [Allergic rhinitis, cause unspecified] 08-13-2024 Chronic Other upper respiratory infections (4 sources) Acute maxillary sinusitis, unspecified; Translations: [Acute maxillary sinusitis] Episodic Otitis media and related conditions (2 sources) Eustachian tube salpingitis; Translations: [Unspecified Eustachian salpingitis, left ear] Episodic Residual codes; unclassified (20 sources) Obstructive sleep apnea syndrome; Translations: [Obstructive sleep apnea (adult) (pediatric)] 10-31-2023 Chronic Residual codes; unclassified (11 sources) Obstructive sleep apnea (adult) (pediatric); Translations: [Obstructive sleep apnea (adult)(pediatric)] Chronic Residual codes; unclassified (2 sources) Postmenopausal state; Translations: [Asymptomatic menopausal state] Episodic Spondylosis; intervertebral disc disorders; other back problems (20 sources) Lumbar spondylosis; Translations: [Spondylosis without myelopathy or radiculopathy, lumbar region] 10-06-2023 Chronic Substance-related disorders (20 sources) Tobacco dependence in remission; Translations: [Nicotine [...] 11-10-2015 Episodic Other aftercare (2 sources) Other rodent exterminator (current) drug therapy; Translations: [OTH CLOSING SUPERVISOR CURRENT DRUG THERAPY] Onset: 03-29-2022 Episodic Other and unspecified benign neoplasm (2 sources) 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; Translations: [Other benign neoplasm of skin of scalp and neck] Onset: 04-23-2015 Episodic Other connective tissue disease (2 sources) Spasm; Translations: [Cramp and spasm] Onset: 10-01-2015 Episodic Spondylosis; intervertebral disc disorders; other back problems (15 sources) Pain in thoracic spine; Translations: [Pain in thoracic spine] Onset: 2013 Episodic Unclassified (1 source) Acute cough R05.1 Unclassified (1 source) Acute bilateral low back pain without sciatica M54.50 Unclassified (1 source) Suspected COVID-19 virus infection Z20.822 Urinary tract infections (2 sources) Acute cystitis; Translations: [Acute cystitis without hematuria] Onset: 06-06-2018 Episodic Results Test Name Value Interpretation Reference Range [facility] Urineon 03-16-2025 Bacteria identified Cx Nom (U) Microbiology PROCEDURE: Urine Culture [R1] SOURCE: U CleanCatch BODY SITE: COLLECTED DATE/TIME: 03/13/2025 14:05 EDT RECEIVED DATE/TIME: 03/14/2025 17:38 EDT START DATE/TIME: 03/14/2025 17:38 EDT FREE TEXT SOURCE: Genevieve Jernigan PA-C, PA-C, Genevieve FINAL REPORTS Final Report [] Verified Date/Time: 03/16/2025 10:02 EDT >100,000 cfu/ml Escherichia coli ESBL 1,000 cfu/ml Mixed skin contaminants SUSCEPTIBILITY RESULTS ____ LEGEND: S=Susceptible, N/R=Not Reported, Blank=Data not available, or drug not advisable or tested, I=Intermediate, ESBL=Extended spectrum beta-lactamase, R=Resistant, TFG=Thymidine-dependent strain, BORIS=Beta-lactamase positive, BARBIE=mcg/m;(mg/L), S*=Predicted susceptible interp, R*=Predicted resistant interp ___ ECESBL Antibiotic BARBIE Dilutn BARBIE Interp Ampicillin >16 R* Ampicillin/ <=8/4 S Sulbactam Cefazolin >16 R* Cefepime >16 R* Ceftazidime/ <=8 S Avibactam Ceftriaxone >2 ESBL Cefuroxime >16 R* Ciprofloxacin 0.5 I Ertapenem <=0.5 S Gentamicin >8 R Levofloxacin <=0.5 S Meropenem <=1 S Nitrofurantoin <=32 S Piperacillin/ <=8 S Tazobactam Tetracycline <=4 S Tobramycin >8 R Trimethoprim/ <=2/38 S Sulfa Performing Locations R1: This test was performed at: [facility], [address] [place] [address], [id number] , , [facility] Comment on above: Performed By: #### [id number] #### [facility] [address] [place] [id number] C Urineon 03-14-2025 Bacteria identified Cx Nom (U) Microbiology PROCEDURE: Urine Culture [R1] SOURCE: U Random BODY SITE: COLLECTED DATE/TIME: 03/12/2025 13:00 EDT RECEIVED DATE/TIME: 03/12/2025 17:27 EDT START DATE/TIME: 03/12/2025 17:27 EDT FREE TEXT SOURCE: Lacey Bustillo Alysha J FINAL REPORTS Final Report [] Verified Date/Time: 03/14/2025 12:32 EDT 50,000 cfu/ml Escherichia coli ESBL 2,000 cfu/ml Mixed skin contaminants SUSCEPTIBILITY RESULTS ____ LEGEND: S=Susceptible, N/R=Not Reported, Blank=Data not available, or drug not advisable or tested, I=Intermediate, ESBL=Extended spectrum beta-lactamase, R=Resistant, TFG=Thymidine-dependent strain, BORIS=Beta-lactamase positive, BARBIE=mcg/m;(mg/L), S*=Predicted susceptible interp, R*=Predicted resistant interp ___ ECESBL Antibiotic BARBIE Dilutn BARBIE Interp Ampicillin >16 R* Ampicillin/ 16/8 I Sulbactam Cefazolin >16 R* Cefepime >16 R* Ceftazidime/ <=8 S Avibactam Ceftriaxone >2 ESBL Cefuroxime >16 R* Ciprofloxacin 1 R Ertapenem <=0.5 S Gentamicin >8 R Levofloxacin <=0.5 S Meropenem <=1 S Nitrofurantoin <=32 S Piperacillin/ <=8 S Tazobactam Tetracycline <=4 S Tobramycin >8 R Trimethoprim/ <=2/38 S Sulfa Performing Locations R1: This test was performed at: [facility], [address] [place] [address], [id number] , , [facility] Comment on above: Performed By: #### [id number] #### [facility] [address] [place], [place] [address], [place] [address] Ambulatory Visit Summaryon 0 03-13-2025 Ambulatory Visit Summary Ambulatory Visit Summary CHELLY TILLMAN :1945 Visit Date:03/13/2025 Ambulatory Visit Instructions Your Diagnosis Mixed incontinence Stricture of ureter Your Care Team Attending Physician - Genevieve Jernigan PA-C Primary Care Physician - EDWIN MOHAN DO This Is Your Medications List albuterol (albuterol HFA 90 mcg/inh MDI) aspirin (aspirin 81 mg oral capsule) atorvastatin (atorvastatin 20 mg Tab) cycloSPORINE ophthalmic (cycloSPORINE Opth 0.05% Emul) escitalopram (escitalopram 10 mg Tab) estradiol topical (Estrace 0.1 mg/g Cream) fluconazole (fluconazole 150 mg Tab) hydrochlorothiazide (hydrochlorothiazide 25 mg Tab) losartan (losartan 100 mg Tab) omeprazole (omeprazole 40 mg Cap-DR) tramadol (traMADOL 50 mg Tab) umeclidinium-vilanterol (Anoro Ellipta 62.5 mcg-25 mcg inhalation powder) Procedures Performed Cataract, Colonoscopy, History of hysterectomy, History of tonsillectomy. What to do next Scheduled Follow-Up Appointments Tuesday 8:30 AM EDT With: Genevieve Jernigan PA-C Where: [facility] [address] [address]- Medications What How Much When Why Instructions Unchanged albuterol (albuterol HFA 90 mcg/ inh MDI) Respiratory (Inhalation), 0 Refill(s) Unchanged aspirin (aspirin 81 mg oral capsule) By Mouth Every 24 hours Unchanged atorvastatin (atorvastatin 20 mg Tab) 90 EA, 0 Refill(s), TAKE 1 TABLET BY MOUTH EVERY EVENING Unchanged cycloSPORINE ophthalmic (cycloSPORINE Opth 0.05% Emul) Every 12 hours Unchanged escitalopram (escitalopram 10 mg Tab) 90 EA, 0 Refill(s), TAKE 1 TABLET BY MOUTH EVERY DAY Unchanged estradiol topical (Estrace 0.1 mg/ g Cream) See instructions Apply a pea-sized amount to the vagina/ urethra 3x/ week for a month, then 2x/ week for maintenance Unchanged fluconazole (fluconazole 150 mg Tab) 1 Tablets By Mouth Once Gross hematuria If symptoms persist after 72 hours, may repeat dose. If symptoms persist after another 72 hours, may repeat 3rd and final dose. Unchanged hydrochlorothiazide (hydrochlorothiazide 25 mg Tab) 90 EA, 0 Refill(s), TAKE 1 TABLET BY MOUTH EVERY DAY Unchanged losartan (losartan 100 mg Tab) 90 EA, 0 Refill(s), TAKE 1 TABLET BY MOUTH EVERY DAY Unchanged omeprazole (omeprazole 40 mg Cap-DR) 90 EA, 0 Refill(s), TAKE 1 CAPSULE BY MOUTH EVERY MORNING ON EMPTY STOMACH FOLLOWED IN 30 MINUTES BY BREAKFAST 90 Unchanged tramadol (traMADOL 50 mg Tab) Unchanged umeclidinium-vilanterol (Anoro Ellipta 62.5 mcg-25 mcg inhalation powder) 1 Unknown, Respiratory (Inhalation), 0 Refill(s) Allergies Cipro (Hives) cefaclor (Hives) Problems Ongoing - Any problem that you are currently receiving treatment for. Atrophic vaginitis Coronary arteriosclerosis Diverticulitis of colon Essential hypertension Gross hematuria Low back pain Mixed incontinence Stricture of ureter Type 2 diabetes mellitus Patient Survey You may receive a survey via text or e-mail asking about your office visit. Please share your experience with us by completing your survey. We appreciate your feedback and thank you for choosing us for your care. Patient Portal You may access all of your results and other medical record information on our secure patient portal. If you are not signed up for this yet, please contact [employer] at [phone] to get signed up today. Language Information Language assistance services are available as needed. Normal [facility] Ambulatory Visit Summaryon 0 03-12-2025 Ambulatory Visit Summary Ambulatory Visit Summary CHELLY TILLMAN :1945 Visit Date:03/12/2025 Ambulatory Visit Instructions Your Diagnosis Gross hematuria Your Care Team Attending Physician - Vickey GALAVIZ, Lacey Oscar Primary Care Physician - EDWIN MOHAN DO This Is Your Medications List albuterol (albuterol HFA 90 mcg/inh MDI) aspirin (aspirin 81 mg oral capsule) atorvastatin (atorvastatin 20 mg Tab) cycloSPORINE ophthalmic (cycloSPORINE Opth 0.05% Emul) escitalopram (escitalopram 10 mg Tab) estradiol topical (Estrace 0.1 mg/g Cream) hydrochlorothiazide (hydrochlorothiazide 25 mg Tab) losartan (losartan 100 mg Tab) omeprazole (omeprazole 40 mg Cap-DR) tramadol (traMADOL 50 mg Tab) umeclidinium-vilanterol (Anoro Ellipta 62.5 mcg-25 mcg inhalation powder) vibegron (Gemtesa 75 mg oral tablet) Procedures Performed Cataract, Colonoscopy, History of hysterectomy, History of tonsillectomy. Discharge Vitals Height 155 cm Height 61 in Weight 81.2 kg Weight 179.015 lb BMI 33.8 What to do next Scheduled Follow-Up Appointments Tuesday 8:30 AM EDT With: Genevieve Jernigan PA-C Where: [facility] [address] [place] [id number]- Medications What How Much When Why Instructions Unchanged albuterol (albuterol HFA 90 mcg/ inh MDI) Respiratory (Inhalation), 0 Refill(s) Unchanged aspirin (aspirin 81 mg oral capsule) By Mouth Every 24 hours Unchanged atorvastatin (atorvastatin 20 mg Tab) 90 EA, 0 Refill(s), TAKE 1 TABLET BY MOUTH EVERY EVENING Unchanged cycloSPORINE ophthalmic (cycloSPORINE Opth 0.05% Emul) Every 12 hours Unchanged escitalopram (escitalopram 10 mg Tab) 90 EA, 0 Refill(s), TAKE 1 TABLET BY MOUTH EVERY DAY Unchanged estradiol topical (Estrace 0.1 mg/ g Cream) See instructions Apply a pea-sized amount to the vagina/ urethra 3x/ week for a month, then 2x/ week for maintenance Unchanged hydrochlorothiazide (hydrochlorothiazide 25 mg Tab) 90 EA, 0 Refill(s), TAKE 1 TABLET BY MOUTH EVERY DAY Unchanged losartan (losartan 100 mg Tab) 90 EA, 0 Refill(s), TAKE 1 TABLET BY MOUTH EVERY DAY Unchanged omeprazole (omeprazole 40 mg Cap-DR) 90 EA, 0 Refill(s), TAKE 1 CAPSULE BY MOUTH EVERY MORNING ON EMPTY STOMACH FOLLOWED IN 30 MINUTES BY BREAKFAST 90 Unchanged tramadol (traMADOL 50 mg Tab) Unchanged umeclidinium-vilanterol (Anoro Ellipta 62.5 mcg-25 mcg inhalation powder) 1 Unknown, Respiratory (Inhalation), 0 Refill(s) Unchanged vibegron (Gemtesa 75 mg oral tablet) 1 Tablets By Mouth Every day Mixed incontinence Gross hematuria Duration: 30 Days Allergies Cipro (Hives) cefaclor (Hives) Problems Ongoing - Any problem that you are currently receiving treatment for. Atrophic vaginitis Coronary arteriosclerosis Diverticulitis of colon Essential hypertension Gross hematuria Low back pain Mixed incontinence Stricture of ureter Type 2 diabetes mellitus Patient Survey You may receive a survey via text or e-mail asking about your office visit. Please share your experience with us by completing your survey. We appreciate your feedback and thank you for choosing us for your care. Patient Portal You may access all of your results and other medical record information on our secure patient portal. If you are not signed up for this yet, please contact [employer] at [phone] to get signed up today. Language Information Language assistance services are available as needed. Normal [facility] Urinalysis with Microon 07-2 Color (U) see comment Invalid Interpretation Code [facility] Comment on above: Result Comment: Mich tity of urine insufficient for urinalysis. Urine culture has been set up. Will credit urinalysis. Microscopic readings are only performed on those samples that meet specific criteria set forth by [facility]. Performed By: #### 4 [id number] #### [facility] [address] [place] [address] Ketones Ql (U) see comment Invalid Interpretation Code [facility] Comment on above: Performed By: #### 4 [id number] #### [facility] [address] [place] [address] UA Blood see comment Invalid Interpretation Code [facility] Comment on above: Performed By: #### 4 [id number] #### [facility] [address] [place] [address] UA Bili see comment Invalid Interpretation Code [facility] Comment on above: Performed By: #### 4 [id number] #### [facility] [address] [place] [address] UA Clarity see comment Invalid Interpretation Code [facility] Comment on above: Performed By: #### 4 [id number] #### [facility] [address] [place] [address] UA Glucose see comment Invalid Interpretation Code [facility] Comment on above: Performed By: #### 4 [id number] #### [facility] [address] [place] [address] UA Leuk Est see comment Invalid Interpretation Code [facility] Comment on above: Performed By: #### 4 [id number] #### [facility] [address] [place] [place] [address] UA Nitrite see comment Invalid Interpretation Code [facility] Comment on above: Performed By: #### 4 [id number] #### [facility] [address] [facility] [place] [address] UA pH see comment Invalid Interpretation Code 5.0-9.0 [facility] Comment on above: Performed By: #### 4 [id number] #### [facility] [address] [facility] [place] [address] UA Protein see comment Invalid Interpretation Code [facility] Comment on above: Performed By: #### 4 [id number] #### [facility] [address] [facility] [place] [address] UA Spec Grav see comment Invalid Interpretation Code 1.005-1.030 [facility] Comment on above: Performed By: #### 4 [id number] #### [facility] [address] [facility] [place] [address] UA Urobilinogen see comment Invalid Interpretation Code [facility] Comment on above: Performed By: #### 4 [id number] #### [facility] [address] [place] [address] UA Spec Desc Clean Catch Normal [facility] Comment on above: Performed By: #### 4 [id number] #### [facility] [address] [place] [address] Urology Office/Clinic Noteon 03-12-2025 Urology Office/Clinic Note Urology Office/Clinic Note Chief Complaint Discuss hematuria HPI Staff 79 year old female here to discuss hematuria Previous DX: mixed incontinence, gross hematuria and atrophic vaginitis Estrace cream 2x weekly, Pt. states stopped 2 weeks ago Gemtesa 75mg, not taking due to cost PCP gave Pt. Macrobid 100mg BID 02/28/25 but had to switch to amoxicillin Pt. states she thinks she has yeast infection due to ABX BBSQ 22 Pt. having mixed incontinence Pt. denies having pain with urination, Pt. states having bladder spasm Pt. having gross hematuria Pt. denies having abd pain Pt. denies having flank pain History of Present Illness Staff HPI reviewed and agree. Review of Systems PHQ Score Initial Depression Screen Score: 0 SCORE no fever, chills, malaise, myalgia. no rash/lesions. no chest pain, palpitations, or SOB. no abdominal pain, nausea, vomiting. no unilateral calf swelling, redness, pain Physical Exam Vitals & Measurements HT: 155 cm HT: 61 in WT: 179.015 lb WT: 81.2 kg BMI: 33.8 General: nontoxic, well-nourished, appears stated age Mouth: moist mucosa Lungs: normal respiratory effort Cardio: regular rate, good distal perfusion Abdomen: nondistended, no suprapubic distention or tenderness, no CVA tenderness Neurologic: Grossly normal Skin: No rashes or suspicious lesions Assessment/Plan KML pt. 1. Gross hematuria (R31.0: Gross hematuria) Former smoker x41 yrs. No occupational exposure. No fam hx of cancers. Recent hematuria work-up negative: CT AP w con 11/11/23 [facility] - No renal mass, obstruction, or calcification. No bladder wall thickening, lesion, or calculus. Cytol 05/30/24 - negative S/p cysto 07/12/24 - 1+ trabeculations, no bladder tumors, lesions, foreign bodies. 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 Pt denies any other UTI symptoms. Pt reports that she went to PCP office on 02/28 and was started on Macrobid. Pt reports that they had to change this due to her history of lung disease so it was switched to Augmentin BID x7 days. Pt finished this on Tuesday. Pt reports that she continues to have gross hematuria. No urine cultures found. Discussed with patient that she may not be on the correct antibiotic so we will need to send her urine for culture and treat based on those results. Pt reports that she does have bladder spasms and incontinence at baseline and she is also experiencing those today. Discussed OTC Azo with patient. Pt also reports that she feels she is getting a yeast infection, will send Fluconazole. If patient continues to have gross hematuria without infection, will need to discuss repeat hematuria workup with Dr. Pepper. -Send urine for culture and micro, will treat based on results -OTC Azo for urinary symptoms -Fluconazole 150mg 1 tab PO PRN, may repeat after 72 hours x2 -Increase fluids -F/U on 04/10/25 as previously scheduled to ensure clearance of infection and hematuria Ordered: fluconazole, 150 mg = 1 tab(s), Oral, Once, If symptoms persist after 72 hours, may repeat dose. If symptoms persist after another 72 hours, may repeat 3rd and final dose., # 1 tab(s), Refills(s) 2, Pharmacy: [facility]/pharmacy #[id number], 155, cm, 03/12/25 11:55:00 EDT, Hei... E&M of Est. Patient Moderate 30-39 Min 92168 Urinalysis with Micro Urine Culture Urnls Dip Stick Auto w/o Microscopy POC [id number] 2. Atrophic vaginitis (N95.2: Postmenopausal atrophic vaginitis) Previously started on topical estrogen cream due to c/o itching/burning of labia, attributes to irritation for pads. Pt reports that she has stopped this about 3 weeks ago because she was unsure if she could use the cream while she was on antibiotics. Ensured patient to restart cream 2x/week as this could be contributing to her bothersome symptoms/hematuria, pt verbalized understanding. -Restart estrogen cream 2x/week Ordered: E&M of Est. Patient Moderate 30-39 Min 87752 3. Mixed incontinence (N39.46: Mixed incontinence) BBS (20-23) PVR 01/02/25 - 0 ml (0 previously) UUI > ANTONIO Tried bladder medication many years ago but does not recall name. Thinks it may have helped but uncertain. Prescribed Gemtesa and Myrbetriq at last OV, but unable to obtain due to cost. Trospium later sent, but pharmacist advised patient of possible drug interaction w/ her potassium medications leading to GI upset/ulcers. Pt was advised to take Trospium and potassium at different times and not on an empty stomach. Patient ultimately did not start Trospium. Most bothersome complaint is UUI, ongoing for years. Unable to make it to the bathroom at times once she has urgency. Voids every 2-3 hours. Wears pads, changes 4x/day. Reports constipation if she does not take fiber supplements daily. Pt reports today that she was unable to fill Gemtesa as it was over $400. Discussed starting Trospium as previously discu (more content not included)... Normal [facility] Comment on above: Result Comment: Elec tronically Signed By: Vickey GALAVIZ, Lacey Oscar\.br\Date and Time Signed: 03/12/25 13:12 EDT XR elbow RT min 3V*on 2024 XR elbow RT min 3V* [facility] [address] [place] [address] XRay Report Signed Patient: Chelly Tillman MR#: [id number] : 1945 Acct:[id number] Age/Sex: 79 / F ADM Date: 02/05/25 [place] [facility] [place] Type: [facility] Attending Dr: Wilfred Orozco DO Copies to: Wilfred Orozco DO Ordering Provider: Wilfred Orozco DO Date of Service: 02/05/25 XR/XR elbow RT min 3V*: S52.124D - Nondisplaced fracture of head of right radius,... RIGHT ELBOW - 4 views CLINICAL HISTORY: Follow-up right radial head fracture COMPARISON: Right elbow 12/11/2024 FINDINGS: No focal soft tissue abnormality or joint effusion. Fracture line is less conspicuous suggestive of healing response. No change in alignment. XR/XR elbow RT min 3V* IMPRESSION: HEALING RADIAL HEAD FRACTURE. Impression dictated by: Chencho Hernandez Jr., D.O. 02/05/2025 4:15 PM Dictation Location: [place] [address] Transcribed By: [facility] 02/05/25 161 Dictated By: Chencho Hernandez Jr, DO 02/05/25 161 Signed By: 02/05/25 1615 [facility] Ambulatory Visit Summaryon 0 01-02-2025 Ambulatory Visit Summary Ambulatory Visit Summary CHELLY TILLMAN :1945 Visit Date:01/02/2025 Ambulatory Visit Instructions Your Diagnosis Mixed incontinence Gross hematuria Your Care Team Attending Physician - Rere BENDER, Genevieve Primary Care Physician - EDWIN MOHAN DO This Is Your Medications List albuterol (albuterol HFA 90 mcg/inh MDI) aspirin (aspirin 81 mg oral capsule) atorvastatin (atorvastatin 20 mg Tab) cycloSPORINE ophthalmic (cycloSPORINE Opth 0.05% Emul) escitalopram (escitalopram 10 mg Tab) estradiol topical (Estrace 0.1 mg/g Cream) hydrochlorothiazide (hydrochlorothiazide 25 mg Tab) losartan (losartan 100 mg Tab) omeprazole (omeprazole 40 mg Cap-DR) tramadol (traMADOL 50 mg Tab) trospium (trospium 20 mg oral tablet) umeclidinium-vilanterol (Anoro Ellipta 62.5 mcg-25 mcg inhalation powder) Procedures Performed Cataract, Colonoscopy, History of hysterectomy, History of tonsillectomy. Discharge Vitals Temperature (Oral) 36.2 ???C Heart Rate (Peripheral) 54 Respiratory Rate 18 Blood Pressure 126/62 Height 155 cm Height 61 in Weight 80.9 kg Weight 178.354 lb BMI 33.67 Medications What How Much When Instructions Unchanged albuterol (albuterol HFA 90 mcg/ inh MDI) Respiratory (Inhalation), 0 Refill(s) Unchanged aspirin (aspirin 81 mg oral capsule) By Mouth Every 24 hours Unchanged atorvastatin (atorvastatin 20 mg Tab) 90 EA, 0 Refill(s), TAKE 1 TABLET BY MOUTH EVERY EVENING Unchanged cycloSPORINE ophthalmic (cycloSPORINE Opth 0.05% Emul) Every 12 hours Unchanged escitalopram (escitalopram 10 mg Tab) 90 EA, 0 Refill(s), TAKE 1 TABLET BY MOUTH EVERY DAY Unchanged estradiol topical (Estrace 0.1 mg/ g Cream) See instructions Apply a pea-sized amount to the vagina/ urethra 3x/ week for a month, then 2x/ week for maintenance Unchanged hydrochlorothiazide (hydrochlorothiazide 25 mg Tab) 90 EA, 0 Refill(s), TAKE 1 TABLET BY MOUTH EVERY DAY Unchanged losartan (losartan 100 mg Tab) 90 EA, 0 Refill(s), TAKE 1 TABLET BY MOUTH EVERY DAY Unchanged omeprazole (omeprazole 40 mg Cap-DR) 90 EA, 0 Refill(s), TAKE 1 CAPSULE BY MOUTH EVERY MORNING ON EMPTY STOMACH FOLLOWED IN 30 MINUTES BY BREAKFAST 90 Unchanged tramadol (traMADOL 50 mg Tab) Unchanged trospium (trospium 20 mg oral tablet) 1 Tablets By Mouth Every day Unchanged umeclidinium-vilanterol (Anoro Ellipta 62.5 mcg-25 mcg inhalation powder) 1 Unknown, Respiratory (Inhalation), 0 Refill(s) Allergies Cipro (Hives) cefaclor (Hives) Problems Ongoing - Any problem that you [...] you for choosing us for your care. Normal [facility] Urology Office/Clinic Noteon 01-02-2025 Urology Office/Clinic Note Urology Office/Clinic Note HPI Staff 6 month f/u to cystoscopy for gross hematuria Dx: gross hematuria and mixed incontinence Estrace cream 2x weekly. no other uro meds. Myrbetriq and Gemtesa are too expensive History of Present Illness I have reviewed and verified the staff HPI to be accurate for this encounter. Review of Systems PHQ Score Initial Depression Screen Score: 0 SCORE Will schedule Botox. The procedural risks, benefits, details, and treatment alternatives have been discussed with the patient. These include bleeding, infection, continued problems with overactive bladder, inability to empty the bladder which could require an indwelling catheter or need for in/out catheterization to empty the bladder, and need for repeat procedures over time (usually lasts up to six months), as well as fatigue and insomnia, among others. There is a minimal risk of Botox entering the blood stream and causing neurological problems, which is quite rare. Full informed consent has been obtained. Will order Local anesthesia. Physical Exam Vitals & Measurements T: 36.2 ???C(Oral) HR: 54(Peripheral) RR: 18 BP: 126/62 HT: 61 in HT: 155 cm WT: 178.354 lb WT: 80.9 kg BMI: 33.67 General: Well developed, well nourished, in no acute distress. Assessment/Plan 79 y/o female pt who presents today for 6 month f/u 1. Mixed incontinence (N39.46: Mixed incontinence) BBS 20-23 (20-25) PVR 0 ml today (0 previously) UA today negative for blood and infection UUI > ANTONIO Tried bladder medication many years ago but does not recall name. Thinks it may have helped but uncertain. Prescribed Gemtesa and Myrbetriq at last OV, but unable to obtain due to cost. Trospium later sent, but pharmacist advised patient of possible drug interaction w/ her potassium medications leading to GI upset/ulcers. Pt was advised to take Trospium and potassium at different times and not on an empty stomach. Patient ultimately did not start Trospium. Most bothersome complaint today is UUI, ongoing for years. Unable to make it to the bathroom at times once she has urgency. Voids every 2-3 hours. Wears pads, changes 4x/day. Reports constipation if she does not take fiber supplements daily. Again, discussed trialing medication for her symptoms today. Additionally, discussed proceeding with Botox or SNM for her sxs. She is hesitant about Botox and SNM at this time. She would like to trial medications first. Offered to send Gemtesa 75 mg PO daily to [facility] to see if medication will be covered this way. Informed pt that if Gemtesa is not covered, then would consider anticholinergic again. She is unsure she would want to take anticholinergic given SE of dry mouth and constipation. Dealing w/ these sxs at baseline. She will continue to think about her options (Trospium, Botox, SNM) if Gemtesa not covered. Risk/benefits of Botox and SNM discussed at length at today's visit. All questions answered. Will start Gemtesa 75 mg PO daily. Pt advised to not take Gemtesa w/ her potassium supplement to avoid GI upset. Do not take on empty stomach. Discontinue if GI upset were to occur. I instructed the patient to contact me immediately if she has any significant side effects, including urinary retention, and discontinue the medication if bothersome SE occur. Patient verbalizes understanding. -Send Gemtesa 75mg PO daily to [facility]. -If not covered, consider starting Trospium 20mg PO daily (if pt wishes). If she starts, aggressive bowel regimen recommended -Increase water intake, avoid bladder irritants -Timed voids, double voids -Avoid constipation, cont daily fiber -F/U 3 months w/ PVR, call sooner if needed Ordered: vibegron, 75 mg = 1 tab(s), Oral, Daily, X 30 day(s), # 30 tab(s), Refills(s) 3, Pharmacy: [facility], 155, cm, 01/02/25 14:55:00 EDT, Height/Length Dosing, 80.9, kg, 01/02/25 14:55:00 EDT, Weight Dosing 60098 Measure Post Void residual urine and/or bladder capacity by US- non-imaging Body Mass Index (BMI) documented 3008F Current tobacco non-user 1036F Depression Screening Negative 3352F Influenza immunization status assessed 1030F Medication list documented in medical record 1159F Most recent diastolic blood pressure <80 mm Hg 3078F Patient screen for fall risk: no falls in last year or 1 fall with no injury in last year 1101F Review of all meds by a prescribing practitioner or clinical pharmacist documented in EHR 1160F Screened for tobacco use AND received tobacco cessation intervention 4004F Systolic BP <130 mm Hg (Most Recent) 3074F Urnls Dip Stick Auto w/o 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 Gross hematuria (R31.0: Gross hematuria) Former smoker x41 yrs. No occupational exposure. No fam hx of cancers. Recent hematuria work-up negative: CT AP w con 11/11/23 [facility] - No renal mass, obstruction, or calcification. No bladder wall thickening, lesion, or calculus. Cytol 05/30/24 - negative S/p cysto 07/12/24 - 1+ trabeculations, no bladder tumors, lesions, foreign b (more content not included)... Normal [facility] Comment on above: Result Comment: Elec tronically Signed By: Rere BENDER, Genevieve\.br\Date and Time Signed: 01/02/25 16:02 EDT X-ray reportOrdered By: Donald Hernandez on 12-11-2024 Study report [facility] [address] [place] [address] XRay Report Signed Patient: Chelly Tillman MR#: [id number] : 1945 Acct:[id number] Age/Sex: 79 / F ADM Date: 5 [place] [facility]: Type: REG CLI Attending Dr: Wilfred Orozco DO Copies to: Wilfred Orozco DO~ Ordering Provider: Wilfred Orozco DO Date of Service: 12/11/24 XR/XR elbow RT min 3V*: S52.124D - Nondisplaced fracture of head of right radius,... RIGHT ELBOW - 4 views CLINICAL HISTORY: Follow-up radial head fracture COMPARISON: Right elbow 11/06/2024 FINDINGS: Radial head fracture grossly unchanged in alignment with periosteal reaction suggestive of healing response. XR/XR elbow RT min 3V* IMPRESSION: HEALING RADIAL HEAD FRACTURE. Impression dictated by: Chencho Hernandez Jr., DVasquezOVasquez12/11/2024 10:26 PM Dictation Location: [facility]-18 Transcribed By: [facility] 12/11/242225 Dictated By: Chencho Hernandez Jr, DO 12/11/242224 Signed By: 12/11/242225 [facility] XR elbow RT min 3V*on 2024 XR elbow RT min 3V* [facility] [address] [place] [address] XRay Report Signed Patient: Chelly Tillman MR#: [id number] 267 : 1945 Acct:[id number] Age/Sex: 79 / F ADM Date: 12/11/24 [place] [facility]: Type: REG CLI Attending Dr: Wilfred Orozco DO Copies to: Wilfred Orozco DO Ordering Provider: Wilfred Orozco DO Date of Service: 12/11/24 XR/XR elbow RT min 3V*: S52.124D - Nondisplaced fracture of head of right radius,... RIGHT ELBOW - 4 views CLINICAL HISTORY: Follow-up radial head fracture COMPARISON: Right elbow 11/06/2024 FINDINGS: Radial head fracture grossly unchanged in alignment with periosteal reaction suggestive of healing response. XR/XR elbow RT min 3V* IMPRESSION: HEALING RADIAL HEAD FRACTURE. Impression dictated by: Chencho Hernandez Jr., D.O.12/11/2024 10:26 PM Dictation Location: [facility]-18 Transcribed By: [facility] 12/11/242225 Dictated By: Chencho Hernandez Jr, DO 12/11/242224 Signed By: 12/11/242225 Normal [facility] X-ray reportOrdered By: Jeimy Choi on 11-06-2024 Study report [facility] [address] [place] [id number] XRay Report Signed Patient: Chelly Tillman MR#: [id number] : 1945 Acct:[id number] Age/Sex: 79 / F ADM Date: 5 [place] [facility]: Type: [facility] Attending Dr: Wilfred Orozco DO Copies to: Wilfred Orozco DO~ Ordering Provider: Wilfred Orozco DO Date of Service: 11/06/24 XR/XR elbow RT min 3V*: S52.124D - Nondisplaced fracture of head of right radius,... RIGHT ELBOW - 4 VIEWS CLINICAL HISTORY: Follow-up radial fracture COMPARISON: 11/03/2024 AP, lateral and both oblique views were obtained. A similar minimally displacedintra-articula r fracture at the radial head is again seen, without change There is no new fracture or dislocation. A small amount of joint fluid is seen. XR/XR elbow RT min 3V* IMPRESSION: STABLE RADIAL FRACTURE. Impression dictated by: Chiara Choi M.D.11/06/2024 4:17 PM Dictation Location: [facility]-23 Transcribed By: ANAYELI 11/06/241616 Dictated By: Chiara Choi MD 11/06/24 160 Signed By: 11/06/241616 [facility] Work Phone: XR elbow RT min 3V*on 2024 XR elbow RT min 3V* [facility] [address] [place] [address] XRay Report Signed Patient: Chelly Tillman MR#: [id number] : 1945 Acct:[id number] Age/Sex: 79 / F ADM Date: 11/06/24 Loc: [facility] Room: Type: REG CLI Attending Dr: Wilfred Orozco DO Copies to: Wilfred Orozco DO Ordering Provider: Wilfred Orozco DO Date of Service: 11/06/24 XR/XR elbow RT min 3V*: S52.124D - Nondisplaced fracture of head of right radius,... RIGHT ELBOW - 4 VIEWS CLINICAL HISTORY: Follow-up radial fracture COMPARISON: 11/03/2024 AP, lateral and both oblique views were obtained. A similar minimally displaced intra-articular fracture at the radial head is again seen, without change There is no new fracture or dislocation. A small amount of joint fluid is seen. XR/XR elbow RT min 3V* IMPRESSION: STABLE RADIAL FRACTURE. Impression dictated by: Chiara Choi M.D.11/06/2024 4:17 PM Dictation Location: [place] [address] Transcribed By: [facility] 11/06/24 1617 Dictated By: Chiara Choi MD 11/06/24 1609 Signed By: 11/06/24 1617 Normal [facility] X-ray reportOrdered By: Juan Yuong on 11-03-2024 Study report [facility] Main [address] [address] XRay Report Signed Patient: Chelly Tillman MR#: [id number] : 1945 Acct:[id number] Age/Sex: 79 / F ADM Date: 5 Loc: ER Room: Type: [facility] ER Attending Dr: Copies to: Roberto Johnson APRN~ Ordering Provider: Roberto Johnson APRN Date of Service: 11/03/24 XR/XR elbow RT min 3V*: Extremity Injury, Upper 5 views rightelbow plain film COMPARISON :None HISTORY: Fell injuring right elbow ACUTE FINDINGS: Mildly impacted acute radial head fracture. DEGENERATIVE CHANGE: Unremarkable SOFT TISSUE FINDINGS: Unremarkable JOINT EFFUSION: Small POSTOP CHANGES: None BONE MINERALIZATION: Adequate XR/XR elbow RT min 3V* IMPRESSION: Mildly impacted radial head fracture Impression dictated by: Cornelio Young M.D.11/03/2024 5:08 PM Dictation Location: [facility]-20 Transcribed By: ANAYELI 11/03/241707 Dictated By: Cornelio Young DO 11/03/241705 Signed By: 11/03/241707 [facility] XR elbow RT min 3V*on 2024 XR elbow RT min 3V* [facility] [place] [address] XRay Report Signed Patient: Chelly Tillman MR#: [id number] 267 : 1945 Acct:[id number] Age/Sex: 79 / F ADM Date: 11/03/24 Loc: ER Room: Type: [facility] ER Attending Dr: Copies to: Roberto Johnson APRN Ordering Provider: Roberto Johnson APRN Date of Service: 11/03/24 XR/XR elbow RT min 3V*: Extremity Injury, Upper 5 views rightelbow plain film COMPARISON :None HISTORY: Fell injuring right elbow ACUTE FINDINGS: Mildly impacted acute radial head fracture. DEGENERATIVE CHANGE: Unremarkable SOFT TISSUE FINDINGS: Unremarkable JOINT EFFUSION: Small POSTOP CHANGES: None BONE MINERALIZATION: Adequate XR/XR elbow RT min 3V* IMPRESSION: Mildly impacted radial head fracture Impression dictated by: Cornelio Young M.D.11/03/2024 5:08 PM Dictation Location: [facility]20 Transcribed By: ANAYELI 11/03/241707 Dictated By: Cornelio Young DO 11/03/241705 Signed By: 11/03/241707 Normal [facility] Estimated glomerular filtrat ion rate (GFR) non- Americanon 09-29-2024 GFR/1.73 sq M.predicted among non-blacks MDRD (S/P/Bld) [Vol rate/Area] Estimated glomerular filtration rate (GFR) non- >=60 mL/min/1.73m 2 [facility] Globulin Calc (S) [Mass/Vol] on 09-29-2024 Globulin (S) [Mass/Vol] Serum globulin measurement by calculation (mass/volume) [facility] Laboratory - Chemistry and C hemistry - challengeon 09-29-2024 Albumin [Mass/Vol] 3.5 g/dL 3.4-5.0 [facility] ALP [Catalytic activity/Vol] 107 U/L 46-116 [facility] ALT [Catalytic activity/Vol] 17 U/L 14-59 [facility] AST [Catalytic activity/Vol] 16 U/L 15-37 [facility] Bilirubin [Mass/Vol] 0.6 mg/dL 0.2-1.0 [facility] Calcium [Mass/Vol] 9.5 mg/dL 8.5-10.1 [facility] Chloride [Moles/Vol] 105 mmol/L 98-107 [facility] CO2 [Moles/Vol] 28.8 mmol/L 21.0-32.0 [facility] Creatinine [Mass/Vol] 0.71 mg/dL 0.55-1.02 [facility] GFR/1.73 sq M.predicted MDRD (S/P/Bld) [Vol rate/Area] mL/min/{1.73_m2} >=60 mL/min/1.73m 2 [facility] Glucose [Mass/Vol] 106 mg/dL 74-106 [facility] Potassium [Moles/Vol] 4.4 mmol/L 3.5-5.1 [facility] Protein [Mass/Vol] 7.4 g/dL 6.4-8.2 [facility] Sodium [Moles/Vol] 141 mmol/L 136-145 [facility] Urea nitrogen [Mass/Vol] 13.0 mg/dL 7.0-18.0 [facility] Urea nitrogen/Creatinine [Mass ratio] 18.3 mg/mg [facility] Serum or plasma albumin/glob ulin mass ratioon 09-29-2024 Albumin/Globulin [Mass ratio] Serum or plasma albumin/globulin mass ratio [facility] Serum or plasma anion gap de terminationon 09-29-2024 Anion gap [Moles/Vol] Serum or plasma anion gap determination [facility] Urine Cytology ([facility])on 1 Microscopic exam Cytology (U) [Interp] Diagnosis Info Invalid Interpretation Code [facility] Comment on above: Result Comment: A:Ur ine,Clean Catch:Bladder Wash Interpretation - Adequate cellularity for evaluation. CPT 10467 MicroScopic Description - Adequacy - Gross Description Site ID:A color Yellow fixative Alcohol Specimen designated Clean Catch received in alcohol preservative and labeled with the patient???s name, consists of 40ml clear yellow fluid. Electronically signed by : on: 06/04/2024 15:27:59 Performed By: #### 1 [id number] #### [facility] [address] [place] [address] Ambulatory Visit Summaryon 1 Ambulatory Visit Summary Ambulatory Visit Summary CHELLY TILLMAN :1945 Visit Date:05/30/2024 Ambulatory Visit Instructions Your [...] Following Appointments Follow Up with Evgeny CHO, Kari Bob, URL, URO When: Comments: sched cysto Where: [address], [place] [address] [phone] Medications What How Much When Instructions New estradiol topical (Estrace 0.1 mg/ g Cream) See instructions Refills: 1 Apply a pea-sized amount to the vagina/ urethra 3x/ week for a month, then 2x/ week for maintenance Pickup at [facility]/pharmacy #[id number] New vibegron (Gemtesa 75 mg oral tablet) 1 Tablets By Mouth Every day Refills: 11 Pickup at [facility]/pharmacy #[id number] Unchanged albuterol (albuterol HFA [...] physician if questions or concerns Pharmacy Information [facility]/pharmacy #[id number]: [address], [place] [id number] [phone] Allergies No active allergies Problems Ongoing - [...] cancers. Jaleesao (more content not included)... Normal [facility] Urine Cytology ([facility])on Method of Extraction Bladder Urine Normal [facility] Comment on above: Performed By: #### 1 [id number] #### [facility] [address] Number of Jars 1 Invalid Interpretation Code [facility] Comment on above: Performed By: #### 1 [id number] #### [facility] [address] [place] [id number] Specimen Clean Catch Normal [facility] Comment on above: Performed By: #### 1 [id number] #### [facility] [address] Type of Service Technical Only Normal [facility] Comment on above: Performed By: #### 1 [id number] #### [facility] [address] [place] [id number] Urology Office/Clinic Noteon 05-30-2024 Urology Office/Clinic Note Urology Office/Clinic Note Chief Complaint Patient in ofice due to hematuria HPI Staff 79 year [...] and tri (more content not included)... Normal [facility] Comment on above: Result Comment: Elec tronically Signed By: Evgeny CHO, Kari Bob\.br\Date and Time Signed: 05/30/24 10:40 EDT\.br\Electronically Co-Signed By: Manuela Emanuel\.br\Date and Time Co-Signed: 05/30/24 09:17 EDT MG MAMM SCREEN 3D JESSENIA CADon 05-25-2022 MG MAMM SCREEN 3D JESSENIA CAD Patient: CHELLY TILLMAN Exam Date: 05/25/2022 : 1945 Gender:F Ordering : DR EDWIN MOHAN D.O. Admission #: [id number] Family : Order #: [id number] CLICK HERE TO VIEW EXAM RADIOLOGY REPORT [...] Treatments None Family Cancers None LOCATION: [facility] BREAST COMPOSITION: Scattered areas fibroglandular density. FINDINGS: [...] MD on 05/26/2022 at 07:48 Normal [facility] CBC AUTO DIFFon 03-27-2022 BASO # 0.0 103/ul Normal 0.0-0.1 [facility] Comment on above: Performed By: #### C BC #### [facility] [address] [place] [address] Dr. Eduardo Segura Basophils/100 WBC (Bld) 0.3 % Normal 0.2-2.0 [facility] Comment on above: Performed By: #### C BC #### [facility] [address] [place] [address] [address] Eduardo Segura EO # 0.3 103/ul Normal 0.0-0.7 [facility] Comment on above: Performed By: #### C BC #### [facility] [address] [place] [address] Dr. Eduardo Segura Eosinophils/100 WBC (Bld) 4.3 % Normal 0.9-7.0 [facility] Comment on above: Performed By: #### C BC #### [facility] [address] [place] [address] Dr. Eduardo Segura Erythrocyte distribution width (RBC) [Ratio] 13.7 % Normal 11.0-15.0 [facility] Comment on above: Performed By: #### C BC #### [facility] [address] [place] [address] Dr. Eduardo Segura Hematocrit (Bld) [Volume fraction] 42.6 % Normal 36.0-48.0 [facility] Comment on above: Performed By: #### C BC #### [facility] [address] [place] [address] [address] Eduardo Segura Hemoglobin (Bld) [Mass/Vol] 14.1 g/dL Normal 12.0-16.0 [facility] Comment on above: Performed By: #### C BC #### [facility] [address] [place] [address] Dr. Eduardo Segura IG # 0.02 10e3/ul Normal 0.00-0.03 [facility] Comment on above: Performed By: #### C BC #### [facility] [address] [place] [address] Dr. Eduardo Segura IG % 0.3 % Normal 0.0-0.5 [facility] Comment on above: Performed By: #### C BC #### [facility] [address] [place] [address] Dr. Eduardo Segura LYMPH # 2.3 103/ul Normal 1.2-3.8 [facility] Comment on above: Performed By: #### C BC #### [facility] [address] [place] [address] Dr. Eduardo Segura Lymphocytes/100 WBC (Bld) 31.9 % Normal 20.5-60.0 [facility] Comment on above: Performed By: #### C BC #### [facility] [address] [place] [address] Dr. Eduardo Segura MANUAL DIFF REQ NO Normal [facility] Comment on above: Performed By: #### C BC #### [facility] [address] [place] [address] Dr. Eduardo Segura MCH (RBC) [Entitic mass] 31.1 pg Normal 26.7-34.0 [facility] Comment on above: Performed By: #### C BC #### [facility] [address] [place] [address] Dr. Eduardo Segura MCHC (RBC) [Mass/Vol] 33.1 g/dL Normal 29.9-35.2 [facility] Comment on above: Performed By: #### C BC #### [facility] [address] [place] [address] Dr. Eduardo Segura MCV (RBC) [Entitic vol] 94.0 fL Normal 81.0-99.0 [facility] Comment on above: Performed By: #### C BC #### [facility] [address] [place] [address] Dr. Eduardo Segura MONO # 0.6 103/ul Normal 0.3-0.8 [facility] Comment on above: Performed By: #### C BC #### [facility] [address] [place] [address] Dr. Eduardo Segura Monocytes/100 WBC (Bld) 7.7 % Normal 1.7-12.0 [facility] Comment on above: Performed By: #### C BC #### [facility] [address] [place] [address] Dr. Eduardo Segura NEUT # 4.0 103/ul Normal 1.4-6.5 [facility] Comment on above: Performed By: #### C BC #### [facility] [address] [place] [address] Dr. Eduardo Segura Neutrophils/100 WBC (Bld) 55.5 % Normal 43.0-75.0 [facility] Comment on above: Performed By: #### C BC #### [facility] [address] [place] [address] Dr. Eduardo Segura Platelet mean volume (Bld) [Entitic vol] 10.2 fL Normal 9.5-13.5 [facility] Comment on above: Performed By: #### C BC #### [facility] [address] [place] [address] Dr. Eduardo Segura PLT 286 103/ul Normal 150-450 [facility] Comment on above: Performed By: #### C BC #### [facility] [address] [place] [address] Dr. Eduardo Segura RBC 4.53 106/ul Normal 4.20-5.40 [facility] Comment on above: Performed By: #### C BC #### [facility] [address] [place] [address] Dr. Eduardo Segura WBC 7.2 103/ul Normal 4.0-11.0 [facility] Comment on above: Performed By: #### C BC #### [facility] [address] [place] [address] Dr. Eduardo Segura GLYCOHEMOGLOBIN A1Con 2021 ADA RECOMMENDATION SEE BELOW Normal [facility] Comment on above: Result Comment: ADA RECOMMENDED LIMIT 4.0 - 6.0 ADA THERAPEUTIC TARGET < 7.0 ACTION SUGGESTED > 7.0 Performed By: #### A 1C #### [facility] [address] [place] [address] [address] Eduardo Segura Glucose [Mass/Vol] 134 mg/dL Normal [facility] Comment on above: Performed By: #### A 1C #### [facility] [address] [address] [address] Eduardo Segura HbA1c (Bld) [Mass fraction] 6.3 % Critically high 4.5-6.2 [facility] Comment on above: Performed By: #### A 1C #### [facility] [address] [place] [address] Dr. Eduardo Segura LIPID PROFILEon 03-27-2022 CHOL-HDL RATIO NORM SEE BELOW Normal [facility] Comment on above: Result Comment: 3.3 - 4.4 LOW RISK 4.4 - 7.1 AVERAGE RISK 7.1 - 11.0 MODERATE RISK >11.0 HIGH RISK Performed By: #### B MP, LIPID, ALT #### [facility] [address] [place] [address] Dr. Eduardo Segura Cholesterol [Mass/Vol] 154 mg/dL Normal <=200 [facility] Comment on above: Performed By: #### B MP, LIPID, ALT #### [facility] [address] [place] [address] Dr. Eduardo Segura Cholesterol in HDL [Mass/Vol] 60 mg/dL Normal 40-60 [facility] Comment on above: Performed By: #### B MP, LIPID, ALT #### [facility] [address] [place] [address] [address] Eduardo Segura Cholesterol in LDL [Mass/Vol] 75.4 mg/dL Normal [facility] Comment on above: Performed By: #### B MP, LIPID, ALT #### [facility] [address] [place] [address] Dr. Eduardo Segura Cholesterol.total/C holesterol in HDL [Mass ratio] 2.6 {ratio} Normal [facility] Comment on above: Performed By: #### B MP, LIPID, ALT #### [facility] [address] [place] [address] Dr. Eduardo Segura HDL NORMAL > or = 60 mg/dl - LO W CARDIOVASCULAR RISK <40 mg/dl - HIGH CARDIOVASCULAR RISK Normal [facility] Comment on above: Performed By: #### B MP, LIPID, ALT #### [facility] [address] [address] [address] Eduardo Segura LDL CALC NORMAL SEE BELOW Normal [facility] Comment on above: Result Comment: <100 mg/dl OPTIMAL 100 - 129 mg/dl NEAR OR ABOVE OPTIMAL 130 - 159 mg/dl BORDERLINE HIGH 160 - 189 mg/dl HIGH >190 mg/dl VERY HIGH Performed By: #### B MP, LIPID, ALT #### [facility] [address] [address] [address] Eduardo Segura Triglyceride [Mass/Vol] 93 mg/dL Normal <=150 [facility] Comment on above: Performed By: #### B MP, LIPID, ALT #### [facility] [address] [address] [address] Eduardo Segura VLDL CALC 18.6 mg/dL Normal [facility] Comment on above: Performed By: #### B MP, LIPID, ALT #### [facility] [address] [address] [address] Eduardo Segura PROF CHEM 8 (BAS METB)on Anion gap [Moles/Vol] 15.0 mmol/L Normal [facility] Comment on above: Performed By: #### B MP, LIPID, ALT #### [facility] [address] [address] [address] Eduardo Segura Calcium [Mass/Vol] 9.8 mg/dL Normal 8.5-10.1 [facility] Comment on above: Performed By: #### B MP, LIPID, ALT #### [facility] [address] [address] [address] Eduardo Segura Chloride [Moles/Vol] 105 mmol/L Normal 98-107 [facility] Comment on above: Performed By: #### B MP, LIPID, ALT #### [facility] [address] [address] [address] Eduardo Segura CO2 [Moles/Vol] 25.2 mmol/L Normal 21.0-32.0 [facility] Comment on above: Performed By: #### B MP, LIPID, ALT #### [facility] [address] [address] [address] Eduardo Segura Creatinine [Mass/Vol] 0.77 mg/dL Normal 0.55-1.02 [facility] Comment on above: Performed By: #### B MP, LIPID, ALT #### [facility] [address] [address] [address] Eduardo Segura EGFR-AF POLISH >60 Normal >=60 [facility] Comment on above: Performed By: #### B MP, LIPID, ALT #### [facility] [address] [address] [address] Eduardo Segura EGFR-NON AF POLISH >60 Normal >=60 [facility] Comment on above: Performed By: #### B MP, LIPID, ALT #### [facility] [address] [address] [address] Eduardo Segura Glucose [Mass/Vol] 142 mg/dL Critically high 74-106 [facility] Comment on above: Performed By: #### B MP, LIPID, ALT #### [facility] [address] [address] [address] Eduardo Segura Potassium [Moles/Vol] 4.2 mmol/L Normal 3.5-5.1 [facility] Comment on above: Performed By: #### B MP, LIPID, ALT #### [facility] [address] [address] [address] Eduardo Segura Sodium [Moles/Vol] 141 mmol/L Normal 136-145 [facility] Comment on above: Performed By: #### B MP, LIPID, ALT #### [facility] [address] [address] [address] Eduardo Segura Urea nitrogen [Mass/Vol] 17.0 mg/dL Normal 7.0-18.0 [facility] Comment on above: Performed By: #### B MP, LIPID, ALT #### [facility] [address] [address] [address] Eduardo Segura Urea nitrogen/Creatinine [Mass ratio] 22.1 mg/mg Normal [facility] Comment on above: Performed By: #### B MP, LIPID, ALT #### [facility] [address] [address] [address] Eduardo Segura [facility] 03-27-2022 ALT [Catalytic activity/Vol] 20 U/L Normal 14-59 [facility] Comment on above: Performed By: #### B MP, LIPID, ALT #### [facility] [address] [address] [address] Eduardo Segura Vital Signs Date Time Vital Sign Value Performing Clinician Facility 02-07-2025 09:53-0400 Body height 154.94 cm Edwin Ball DO Work Phone: [facility] 02-07-2025 09:53-0400 Body mass index (BMI) [Ratio] 34.2 kg/m2 Edwin Ball DO Work Phone: [facility] 02-07-2025 09:53-0400 Body weight 82.15 kg Edwin Ball DO Work Phone: [facility] 02-07-2025 09:53-0400 Diastolic blood pressure 75 mm[Hg] Edwin Ball DO Work Phone: [facility] 02-07-2025 09:53-0400 Heart rate 59 /min Edwin Ball DO Work Phone: [facility] 02-07-2025 09:53-0400 Respiratory rate 12 /min Edwin Ball DO Work Phone: [facility] 02-07-2025 09:53-0400 Systolic blood pressure 135 mm[Hg] Edwin Ball DO Work Phone: [facility] 01-28-2025 14:41-0400 Body height 154.94 cm Edwin Ball DO Work Phone: [facility] 01-28-2025 14:41-0400 Body mass index (BMI) [Ratio] 34.8 kg/m2 Edwin Ball DO Work Phone: [facility] 01-28-2025 14:41-0400 Body weight 83.63 kg Edwin Ball DO Work Phone: [facility] 01-28-2025 14:41-0400 Diastolic blood pressure 89 mm[Hg] Edwin Ball DO Work Phone: [facility] 01-28-2025 14:41-0400 Heart rate 69 /min Edwin Ball DO Work Phone: [facility] 01-28-2025 14:41-0400 Respiratory rate 12 /min Edwin Ball DO Work Phone: [facility] 01-28-2025 14:41-0400 Systolic blood pressure 139 mm[Hg] Edwin Ball DO Work Phone: [facility] 01-02-2025 14:40-0400 Blood Pressure Location Genevieve Rere [facility] 01-02-2025 14:40-0400 Body temperature 97.16 [degF] Genevieve Rere [facility] 01-02-2025 14:40-0400 Diastolic blood pressure 62 mm[Hg] Genevieve Rere [facility] 01-02-2025 14:40-0400 Heart rate 54 /min Genevieve Rere [facility] 01-02-2025 14:40-0400 Respiratory rate 18 /min Genevieve Rere [facility] 01-02-2025 14:40-0400 Systolic blood pressure 126 mm[Hg] Genevieve Rere [facility] 11-06-2024 12:30-0400 Body height 154.94 cm Edwin Ball DO Work Phone: [facility] 11-06-2024 12:30-0400 Body mass index (BMI) [Ratio] 35.5 kg/m2 Edwin Ball DO Work Phone: [facility] 11-06-2024 12:30-0400 Body weight 85.27 kg Edwin Ball DO Work Phone: [facility] 11-05-2024 14:08-0400 Body height 154.94 cm Edwin Ball DO Work Phone: [facility] 11-05-2024 14:08-0400 Body mass index (BMI) [Ratio] 35.5 kg/m2 Edwin Ball DO Work Phone: [facility] 11-05-2024 14:08-0400 Body weight 85.27 kg Edwin Ball DO Work Phone: [facility] 11-05-2024 14:08-0400 Diastolic blood pressure 70 mm[Hg] Edwin Ball DO Work Phone: [facility] 11-05-2024 14:08-0400 Heart rate 56 /min Edwin Ball DO Work Phone: [facility] 11-05-2024 14:08-0400 Respiratory rate 12 /min Edwin Ball DO Work Phone: [facility] 11-05-2024 14:08-0400 SaO2% (BldA) [Mass fraction] 96 % Edwin Ball DO Work Phone: [facility] 11-05-2024 14:08-0400 Systolic blood pressure 115 mm[Hg] Edwin Ball DO Work Phone: [facility] 11-03-2024 17:50-0400 Diastolic blood pressure 74 mm[Hg] Edwin Ball DO Work Phone: [facility] 11-03-2024 17:50-0400 Systolic blood pressure 135 mm[Hg] Edwin Ball DO Work Phone: [facility] 11-03-2024 16:40-0400 Body height 154.94 cm Edwin Ball DO Work Phone: [facility] 11-03-2024 16:40-0400 Body temperature 97.6 [degF] Edwin Ball DO Work Phone: [facility] 11-03-2024 16:40-0400 Body weight 86 kg Edwin Ball DO Work Phone: [facility] 11-03-2024 16:40-0400 Diastolic blood pressure 79 mm[Hg] Edwin Ball DO Work Phone: [facility] 11-03-2024 16:40-0400 Heart rate 57 /min Edwin Ball DO Work Phone: [facility] 11-03-2024 16:40-0400 Respiratory rate 20 /min Edwin Ball DO Work Phone: [facility] 11-03-2024 16:40-0400 SaO2% (BldA) [Mass fraction] 93 % Edwin Ball DO Work Phone: [facility] 11-03-2024 16:40-0400 Systolic blood pressure 185 mm[Hg] Edwin Ball DO Work Phone: [facility] 08-13-2024 10:32-0500 Body height 165.1 cm Edwin Ball DO Work Phone: [facility] 08-13-2024 10:32-0500 Body mass index (BMI) [Ratio] 31.6 kg/m2 Edwin Ball DO Work Phone: [facility] 08-13-2024 10:32-0500 Body weight 86.18 kg Edwin Ball DO Work Phone: [facility] 08-13-2024 10:32-0500 Diastolic blood pressure 82 mm[Hg] Edwin Ball DO Work Phone: [facility] 08-13-2024 10:32-0500 Heart rate 55 /min Edwin Ball DO Work Phone: [facility] 08-13-2024 10:32-0500 Respiratory rate 12 /min Edwin Ball DO Work Phone: [facility] 08-13-2024 10:32-0500 Systolic blood pressure 131 mm[Hg] Edwin Ball DO Work Phone: [facility] 08-09-2023 15:00-0500 Body height 165.1 cm Edwin Ball Other [facility] Other 08-09-2023 15:00-0500 Body mass index (BMI) [Ratio] 32.88 kg/m2 Edwin Ball Other [facility] Other 08-09-2023 15:00-0500 Body weight 89.63 kg Edwin Ball Other [facility] Other 08-09-2023 15:00-0500 Diastolic blood pressure 94 mm[Hg] Edwin Ball Other [facility] Other 08-09-2023 15:00-0500 Respiratory rate 12 /min Edwin Ball Other [employer] Other 08-09-2023 15:00-0500 Systolic blood pressure 134 mm[Hg] Edwin Ball Other [employer] Other 06-08-2023 14:15-0400 Body height 165.1 cm Edwin Ball Other [employer] Other 06-08-2023 14:15-0400 Body mass index (BMI) [Ratio] 33.71 kg/m2 Edwin Ball Other [employer] Other 06-08-2023 14:15-0400 Body weight 91.9 kg Edwin Ball Other [employer] Other 06-08-2023 14:15-0400 Diastolic blood pressure 82 mm[Hg] Edwin Ball Other [employer] Other 06-08-2023 14:15-0400 Respiratory rate 12 /min Edwin Ball Other [employer] Other 06-08-2023 14:15-0400 Systolic blood pressure 128 mm[Hg] Edwin Ball Other [employer] Other 06-03-2023 11:30-0400 Body height 165.1 cm Edwin Ball Other [employer] Other 06-03-2023 11:30-0400 Body mass index (BMI) [Ratio] 33.71 kg/m2 Edwin Ball Other [employer] Other 06-03-2023 11:30-0400 Body weight 91.9 kg Edwin Ball Other [employer] Other 06-03-2023 11:30-0400 Diastolic blood pressure 80 mm[Hg] Edwin Ball Other [employer] Other 06-03-2023 11:30-0400 Respiratory rate 12 /min Edwin Ball Other [employer] Other 06-03-2023 11:30-0400 Systolic blood pressure 130 mm[Hg] Edwin Ball Other [employer] Other 04-12-2023 10:45-0400 Body height 165.1 cm Edwin Ball Other [employer] Other 04-12-2023 10:45-0400 Body mass index (BMI) [Ratio] 34.61 kg/m2 Edwin Ball Other [employer] Other 04-12-2023 10:45-0400 Body weight 94.35 kg Edwin Ball Other [employer] Other 04-12-2023 10:45-0400 Diastolic blood pressure 74 mm[Hg] Edwin Ball Other [employer] Other 04-12-2023 10:45-0400 Respiratory rate 20 /min Edwin Ball Other [employer] Other 04-12-2023 10:45-0400 Systolic blood pressure 116 mm[Hg] Edwin Ball Other [employer] Other 03-29-2023 10:30-0400 Body height 165.1 cm Edwin Ball Other [employer] Other 03-29-2023 10:30-0400 Body mass index (BMI) [Ratio] 34.48 kg/m2 Edwin Ball Other [employer] Other 03-29-2023 10:30-0400 Body weight 93.99 kg Edwin Ball Other [employer] Other 03-29-2023 10:30-0400 Diastolic blood pressure 70 mm[Hg] Edwin Ball Other [employer] Other 03-29-2023 10:30-0400 Respiratory rate 12 /min Edwin Ball Other [employer] Other 03-29-2023 10:30-0400 Systolic blood pressure 158 mm[Hg] Edwin Ball Other [employer] Other 11-25-2022 11:30-0400 Body height 165.1 cm Edwin Ball Other [employer] Other 11-25-2022 11:30-0400 Body mass index (BMI) [Ratio] 35.61 kg/m2 Edwin Ball Other [employer] Other 11-25-2022 11:30-0400 Body weight 97.07 kg Edwin Ball Other [employer] Other 11-25-2022 11:30-0400 Diastolic blood pressure 76 mm[Hg] Edwin Ball Other [employer] Other 11-25-2022 11:30-0400 Respiratory rate 12 /min Edwin Ball Other [employer] Other 11-25-2022 11:30-0400 Systolic blood pressure 126 mm[Hg] Edwin Mohan Other [employer] Other Encounters Encounter Date Encounter Type Care Provider Facility Start: 04-10-2025 ambulatory Genevieve Rere Facility:[facility] Start: 03-13-2025 End: 03-13-2025 ambulatory Genevieve Rere [facility] Start: 03-13-2025 End: 03-13-2025 Patient encounter procedure Genevieve Floresa [facility] Start: 03-12-2025 End: 03-12-2025 ambulatory Lacey J Waltea [facility] Start: 03-12-2025 End: 03-12-2025 ambulatory Lacey J Galea Facility:[facility] Start: 03-12-2025 End: 03-12-2025 Patient encounter procedure Lacey J Galea [facility] Start: 02-28-2025 End: 02-28-2025 ambulatory Edwin Ball DO Work Phone: [facility] Work Phone: Start: 02-28-2025 End: 02-28-2025 Patient encounter procedure Edwin Mohan DO -[facility] Work Phone: Start: 02-07-2025 End: 02-07-2025 Patient encounter procedure Edwin Mohan DO -[facility] Work Phone: Start: 02-05-2025 End: 02-05-2025 Patient encounter procedure Wilfred Orozco DO -[facility] Work Phone: Start: 02-05-2025 End: 02-05-2025 ambulatory Edwin Mohan Facility:[facility] Start: 02-05-2025 End: 02-05-2025 Patient encounter procedure Wlifred Alfa Pam DO -[facility] Start: 01-28-2025 End: 01-28-2025 ambulatory Edwin Ball DO Work Phone: [facility] Work Phone: Start: 01-28-2025 End: 01-28-2025 Patient encounter procedure Edwin Ball DO Work Phone: [facility] Work Phone: Start: 01-02-2025 End: 01-02-2025 ambulatory Genevieve Jernigan Facility:[facility] Start: 01-02-2025 End: 01-02-2025 Patient encounter procedure Genevieve Jernigan [facility] Start: 12-11-2024 End: 12-11-2024 ambulatory Edwin Ball DO Work Phone: [facility] Work Phone: Start: 12-11-2024 End: 12-11-2024 Patient encounter procedure Edwin Ball DO Work Phone: [facility] Work Phone: Start: 12-11-2024 End: 12-11-2024 Patient encounter procedure Edwin Ball DO Work Phone: [facility] Start: 12-11-2024 End: 12-11-2024 ambulatory Edwin Ball DO Work Phone: [facility] Work Phone: Start: 11-06-2024 End: 11-06-2024 ambulatory Edwin Ball DO Work Phone: [facility] Work Phone: Start: 11-06-2024 End: 11-06-2024 Patient encounter procedure Edwin Ball DO Work Phone: [facility] Work Phone: Start: 11-06-2024 End: 11-06-2024 Patient encounter procedure Edwin Ball DO Work Phone: [facility] Start: 11-06-2024 End: 11-06-2024 ambulatory Edwin Ball DO Work Phone: [facility] Work Phone: Start: 11-05-2024 End: 11-05-2024 ambulatory Edwin Ball DO Work Phone: [facility] Work Phone: Start: 11-05-2024 End: 11-05-2024 Patient encounter procedure Edwin Ball DO Work Phone: [facility] Work Phone: Start: 11-03-2024 End: 11-03-2024 Emergency department patient visit Edwin Ball DO Work Phone: [facility] Work Phone: Start: 09-29-2024 Non-patient / Non-visit Benjam in Ball DO Work Phone[facility] Work Phone: Start: 08-13-2024 End: 08-13-2024 Patient encounter procedure Edwin Ball DO Work Phone: [facility] Work Phone: Start: 07-12-2024 End: 07-12-2024 ambulatory Kari Pepper Facility:[id number] Start: 05-30-2024 End: 05-30-2024 Lab Drop off Kari Pepper [facility] Start: 05-30-2024 End: 05-30-2024 ambulatory Kari Pepper [place] Start: 05-30-2024 End: 05-30-2024 Patient encounter procedure Kari Pepper [facility] Start: 05-18-2024 ambulatory Kari Pepper Facility:[facility] Start: 04-03-2024 End: 04-03-2024 ambulatory ANGEL D ZAHLER Not Available Start: 01-17-2024 End: 01-17-2024 ambulatory ANGEL D ZAHLER Not Available Start: 10-14-2023 End: 10-14-2023 ambulatory Edwin Ball Other [employer] Other Start: 10-14-2023 Telephone encounter Edwni Ball [facility] Start: 09-19-2023 End: 09-19-2023 ambulatory ANGEL D ZAHLER Not Available Start: 08-12-2023 End: 08-12-2023 ambulatory Edwin Ball Other [employer] Other Start: 08-12-2023 Telephone encounter Edwin Ball [facility] Start: 08-11-2023 End: 08-11-2023 ambulatory Edwin Ball Other [employer] Other Start: 08-11-2023 Telephone encounter Edwin Ball [facility] Start: 08-09-2023 End: 08-09-2023 ambulatory Edwin Ball Other [employer] Other Start: 08-09-2023 Office outpatient vi sit 25 minutes Edwin Ball [facility] Start: 08-04-2023 End: 08-04-2023 ambulatory Edwin Mohan Other [employer] Other Start: 08-04-2023 Telephone encounter Edwin Mohan [facility] Start: 08-02-2023 End: 08-02-2023 ambulatory YANY MARTINEZ Not Available Start: 07-25-2023 End: 07-26-2023 ambulatory Raphael Parisi MD Facility:[facility] Start: 07-19-2023 End: 07-19-2023 ambulatory Edwin Mohan Other [employer] Other Start: 07-19-2023 Office outpatient vi sit 15 minutes Edwin Ball [facility] Start: 06-20-2023 End: 06-21-2023 ambulatory Raphael Parisi MD Facility:[facility] Start: 06-16-2023 End: 06-16-2023 ambulatory Edwin Mohan Other [employer] Other Start: 06-16-2023 Telephone encounter Edwin Mohan [facility] Start: 06-15-2023 End: 06-15-2023 ambulatory Edwin Mohan Other [employer] Other Start: 06-15-2023 Telephone encounter Edwin Mohan [facility] Start: 06-13-2023 End: 06-14-2023 ambulatory [facility] Start: 06-09-2023 End: 06-09-2023 ambulatory Edwin Mohan Other [employer] Other Start: 06-09-2023 Telephone encounter Edwin Mohan [facility] Start: 06-08-2023 End: 06-08-2023 ambulatory Edwin Mohan Other [employer] Other Start: 06-08-2023 Office outpatient vi sit 15 minutes Edwin Ball [facility] Start: 06-03-2023 End: 06-03-2023 ambulatory Edwin Ball Other [employer] Other Start: 06-03-2023 Office outpatient vi sit 25 minutes Edwin Ball [facility] Start: 05-25-2023 End: 05-25-2023 ambulatory Edwin Ball Other [employer] Other Start: 05-25-2023 Telephone encounter Edwin Ball [facility] Start: 05-23-2023 End: 05-23-2023 ambulatory DO Edwin Ball Work Phone: [facility] Work Phone: Start: 05-23-2023 End: 05-23-2023 Patient encounter procedure DO Edwin Ball Work Phone: [facility] Work Phone: Start: 04-21-2023 End: 04-21-2023 ambulatory Edwin Ball Other [employer] Other Start: 04-21-2023 Telephone encounter Edwin Ball [facility] Start: 04-20-2023 End: 04-20-2023 ambulatory Edwin Ball Other [employer] Other Start: 04-20-2023 Telephone encounter Edwin Ball [facility] Start: 04-18-2023 End: 04-18-2023 ambulatory Edwin Ball Other [employer] Other Start: 04-18-2023 Telephone encounter Edwin Ball [facility] Start: 04-12-2023 End: 04-12-2023 ambulatory Edwin Ball Other [employer] Other Start: 04-12-2023 Office outpatient vi sit 15 minutes Edwin Ball [facility] Start: 04-12-2023 Telephone encounter Edwin Ball [facility] Start: 04-07-2023 End: 04-07-2023 ambulatory Edwin Mohan Other [employer] Other Start: 04-07-2023 Telephone encounter Edwin Mohan [facility] Start: 03-29-2023 End: 03-29-2023 ambulatory Edwin Mohan Other [employer] Other Start: 03-29-2023 Office outpatient vi sit 15 minutes Edwin Mohan [facility] Start: 01-08-[address] EDWIN MOHAN Facili ty:[facility] Start: 11-30-2022 End: 11-30-2022 ambulatory Edwin Mohan Other [employer] Other Start: 11-30-2022 Telephone encounter Edwin Mohan [facility] Start: 11-28-2022 End: 11-28-2022 ambulatory Edwin Mohan Other [employer] Other Start: 11-28-2022 Telephone encounter Edwin Mohan [facility] Start: 11-25-2022 End: 11-25-2022 ambulatory Edwin Mohan Other [employer] Other Start: 11-25-2022 Patient encounter procedure Edwin Mohan [facility] Start: 11-08-2022 End: 11-08-2022 ambulatory Edwin Mohan Other [employer] Other Start: 11-08-2022 Telephone encounter Edwin Mohan [facility] Start: 11-01-2022 End: 11-01-2022 ambulatory Edwin Mohan Other [employer] Other Start: 11-01-2022 Office outpatient vi sit 15 minutes Edwin Mohan [facility] Start: 10-19-2022 End: 10-19-2022 ambulatory Edwin Mohan Other [employer] Other Start: 10-19-2022 Telephone encounter Edwin Mohan [facility] Start: 07-22-2022 Adult health examination Edwin Mohan Other [facility] Other Start: 05-25-2022 End: 05-26-[address] EDWIN MOHAN Facility:[facility] Start: 03-27-2022 End: 03-28-[address] EDWIN MOHAN Facility:[facility] Procedures Date Procedure Procedure Detail Performing Clinician Start: 02-05-2025 Plain X-ray of right elbow Edwin Ball DO Work Phone: Start: 12-11-2024 Plain X-ray of right elbow Edwin Ball DO Work Phone: Start: 11-06-2024 Plain X-ray of right elbow Edwin Ball DO Work Phone: Start: 11-03-2024 Plain X-ray of right elbow Edwin Ball DO Work Phone: Start: 05-01-2018 Screening for malign ant neoplasm of colon Edwin Mohan Other Start: 08-01-2017 Screening for osteoporosis Edwin Mohan Other Cataract (disorder) Kari ham Colonoscopy Kari Pepper Depression screening Ana Mohan Other H/O: hysterectomy Kari Pepper History of tonsillectomy Rosie Pepper Screening for malign ant neoplasm of breast Edwin Mohan Other Screening for malign ant neoplasm of skin Edwin Mohan Other Plan of Treatment Date Care Activity Detail Author Start: 12-11-2024 Plain X-ray of right elbow XR elbow RT min 3V* [facility] Start: 12-11-2024 XR Elbow - right GE 3 Views [facility] Start: 11-06-2024 Plain X-ray of right elbow XR elbow RT min 3V* [facility] Start: 11-06-2024 XR Elbow - right GE 3 Views [facility] Comprehensive metabo lic 2000 panel - Serum or Plasma [facility] Patient Education Elbow Fracture , Adult ED [facility] Work Phone: Patient referral [facility] Work Phone: [facility] Immunizations Immunization Date Immunization Notes Care Provider Arley obrienphong 05-20-2024 tetanus toxoid, redu mitzi diphtheria toxoid, and acellular pertussis vaccine, adsorbed Kari Lue [facility] 05-10-2024 influenza virus vaccine, unspecified formulation Kari Lue [facility] 04-08-2024 zoster vaccine recombinant Kari Lue [facility] [facility] 05[facility]2023 influenza virus vaccine, unspecified formulation Kari Lue [facility] 07-03-2022 influenza virus vaccine, unspecified formulation Edwin Mohan DO Work Phone: [facility] 07-03-2022 influenza, high dose seasonal, preservative-free Edwin Mohan Other [employer] Other 06-23-2022 influenza, high dose seasonal, preservative-free Edwin Mohan Other [employer] Other 06-23-2022 influenza virus vaccine, unspecified formulation Kari Lue [facility] 05-18-2022 COVID-19 Pfizer (bivalent) Edwin Mohan Other [facility] 12-12-2021 COVID-19 Pfizer Edwin kurtz Other [facility] 12-12-2021 COVID-19 Vaccine Pfi zer - Documentation Purposes Only Edwin Mohan Other [facility] 12-12-2021 SARS-CoV-2 mRNA (zidzriomcdn-httk-ckfqf se) vaccine Kari Pepper [facility] 07-21-2021 influenza virus vaccine, split virus (incl. purified surface antigen) Edwin Mohan Other [employer] Other 07-21-2021 influenza virus vaccine, unspecified formulation Edwin Mohan DO Work Phone: [facility] 05-22-2021 COVID-19 Vaccine Pfi zer - Documentation Purposes Only Edwin Mohan Other [facility] Comment on above: Result Comment: 2023: [id number] 10-08-2020 COVID-19 Vaccine Pfi zer - Documentation Purposes Only Edwin Mohan Other [facility] Comment on above: Result Comment: 2023: [id number] 09-17-2020 COVID-19 Vaccine Moderna - Documentation Purposes Only Edwin Mohan Other [facility] 09-17-2020 COVID-19 Vaccine Pfi zer - Documentation Purposes Only Edwin Mohan Other [facility] Comment on above: Result Comment: 2023: [id number] 04-30-2020 influenza virus vaccine, split virus (incl. purified surface antigen) Edwin Mohan Other [employer] Other 04-30-2020 influenza virus vaccine, unspecified formulation Edwin Mohan DO Work Phone: [facility] 05-18-2019 pneumococcal polysaccharide vaccine, 23 valent Edwin Mohan Other [facility] 05-01-2018 pneumococcal polysaccharide vaccine, 23 valent Edwin Mohan Other [facility] 08-02-2017 diphtheria, tetanus toxoids and acellular pertussis vaccine, unspecified formulation Edwin Mohan Other [facility] 11-20-2016 pneumococcal polysaccharide vaccine, 23 valent Kari Pepper [facility] 06-05-2015 pneumococcal conjuga te vaccine, 13 valent Edwin Mohan Other [facility] 06-04-2015 pneumococcal conjuga te vaccine, 13 valent Edwin Mohan Other [facility] Payers Date Payer Category Payer Self-pay 2023 Private Health Insurance [id number] 2022 Medicare 2022 Private Health Insurance 1958 Medicare [id number] 2.1 [id number] 1959 Private Health Insurance CLI [id number] 1945 Unknown [id number] 2.16.84 0.1.484584.3.579.2.593 1945 Unknown [id number] 2.16.84 0.1.460782.3.579.2.593 1945 Unknown [id number] 2.16.84 0.1.405544.3.579.2.593 1945 Unknown [id number] 2.16. 840.1.696114.3.579.2.196 1945 Unknown [id number] 2.16. 840.1.973426.3.579.2.196 1946 Unknown [id number] 2.16. 840.1.864171.3.579.2.196 1946 Unknown [id number] 2.16.84 0.1.155238.3.579.2.1259 1946 Unknown [id number] 2.16.84 0.1.954904.3.579.2.1259 1946 Unknown [id number] 2.16.84 0.1.188535.3.579.2.1259 1946 Unknown [id number] 2.16.840 .1.308060.3.579.2.1259 1946 Unknown [id number] 2.16.8 40.1.068007.3.579.2.727 1946 Unknown [id number] 2.16.8 40.1.322237.3.579.2.727 1946 Unknown [id number] 2.16.8 40.1.537866.3.579.2.727 1946 Unknown [id number] 2.16.8 40.1.618850.3.579.2.727 1946 Unknown [id number] 2.16.8 40.1.042385.3.579.2.727 1946 Unknown [id number] 2.16.8 40.1.545713.3.579.2.727 1946 Unknown [id number] 2.16.8 40.1.662740.3.579.2.727 1946 Unknown [id number] 2.16.8 40.1.276548.3.579.2.727 1946 Unknown [id number] 2.16.8 40.1.308240.3.579.2.727 1946 Unknown [id number] 2.16.8 40.1.854447.3.579.2.727 Unknown [id number] 2.16.8 40.1.035210.3.579.2.531 Unknown [id number] 2.16.8 40.1.592524.3.579.2.531 Unknown [id number] 2.16.8 40.1.720843.3.579.2.531 Unknown [id number] 2.16.8 40.1.608316.3.579.2.531 Social History Date Type Detail Facility Sex Assigned At [facility] Start: 1945 Sex Assigned At Female F [facility] Start: 05-30-2024 End: 03-12-2025 Tobacco smoking status Ex-smoker (finding) [facility] Start: 11-03-2024 End: 01-28-2025 Tobacco smoking status NHIS Never smoked tobacco (finding) [facility] Start: 12-03-2009 End: 11-03-2024 Sex Female (finding) [facility] Tobacco smoking status Never [facility] Sexual Orientation [facility] Medical Equipment Procedure Code Equipment Code Equipment Origin al Text Equipment Identifier Dates Blood Sugar Diagnostic (Accu-Chek Guide Test Strips) strip Start: 12-22-2023 Blood Sugar Diagnostic (Onetouch Verio Test Strips) strip Start: 12-21-2023 End: 12-22-2023 Blood Sugar Diagnostic (Accu-Chek Guide Test Strips) strip Start: 12-22-2023 Blood Sugar Diagnostic (Onetouch Verio Test Strips) strip Start: 12-21-2023 End: 12-22-2023 Blood Sugar Diagnostic (Accu-Chek Guide Test Strips) strip Start: 12-22-2023 Blood Sugar Diagnostic (Onetouch Verio Test Strips) strip Start: 12-21-2023 End: 12-22-2023 Blood Sugar Diagnostic (Accu-Chek Guide Test Strips) strip Start: 12-22-2023 Blood Sugar Diagnostic (Onetouch Verio Test Strips) strip Start: 12-21-2023 End: 12-22-2023 Blood Sugar Diagnostic (Accu-Chek Guide Test Strips) strip Start: 12-22-2023 Blood Sugar Diagnostic (Onetouch Verio Test Strips) strip Start: 12-21-2023 End: 12-22-2023 Blood Sugar Diagnostic (Accu-Chek Guide Test Strips) strip Start: 12-22-2023 Blood Sugar Diagnostic (Onetouch Verio Test Strips) strip Start: 12-21-2023 End: 12-22-2023 Blood Sugar Diagnostic (Accu-Chek Guide Test Strips) strip Start: 12-22-2023 Blood Sugar Diagnostic (Onetouch Verio Test Strips) strip Start: 12-21-2023 End: 12-22-2023 Blood Sugar Diagnostic (Accu-Chek Guide Test Strips) strip Start: 12-22-2023 Blood Sugar Diagnostic (Onetouch Verio Test Strips) strip Start: 12-21-2023 End: 12-22-2023 Functional Status Date Assessment Result Facility 01-02-2025 Functional Status N/A [facility] 05-30-2024 Functional Status N/A [facility] Clinical Notes 10-19-2022 to 03-12-2025 Note Date & Type Note Facility 03-12-2025 Hospital Discharg e instructions Patient Education 03/12/2025 13:10:24 Atrophic Vaginitis Atrophic Vaginitis Atrophic vaginitis is a condition in which the tissues that line the vagina become dry and thin. This condition is most common in women who have stopped having regular menstrual periods (are in menopause). This usually starts when a woman is 45 to 55 years old. That is the time when a woman's estrogen levels begin to decrease. Estrogen is a female hormone. It helps to keep the tissues of the vagina moist. It stimulates the vagina to produce a clear fluid that lubricates the vagina for sex. This fluid also protects the vagina from infection. Lack of estrogen can cause the lining of the vagina to get thinner and dryer. The vagina may also shrink in size. It may become less elastic. Atrophic vaginitis tends to get worse over time as a woman's estrogen level drops. What are the causes? This condition is caused by the normal drop in estrogen that happens around the time of menopause. What increases the risk? Certain conditions or situations may lower a woman's estrogen level, leading to a higher risk for atrophic vaginitis. You are more likely to develop this condition if: You are taking medicines that block estrogen. You have had your ovaries removed. You are being treated for cancer with radiation or medicines (chemotherapy). You have given or are . You are older than age 50. You smoke. What are the signs or symptoms? Symptoms of this condition include: Pain, soreness, a feeling of pressure, or bleeding during sex (dyspareunia). Vaginal burning, irritation, or itching. Pain or bleeding when a speculum is used in a vaginal exam. Having burning pain while urinating. Vaginal discharge. In some cases, there are no symptoms. How is this diagnosed? This condition is diagnosed based on your medical history and a physical exam. This will include a pelvic exam that checks the vaginal tissues. Though rare, you may also have other tests, including: A urine test. A test that checks the acid balance in your vagina (acid balance test). How is this treated? Treatment for this condition depends on how severe your symptoms are. Treatment may include: Using an rqpj-nym-jbqmvhx vaginal lubricant before sex. Using a long-acting vaginal moisturizer. Using low-dose estrogen for moderate to severe symptoms that do not respond to other treatments. Options include creams, tablets, and inserts (vaginal rings). Before you use a vaginal estrogen, tell your health care provider if you have a history of: ?Breast cancer. ?Endometrial cancer. ?Blood clots. If you are not sexually active and your symptoms are very mild, you may not need treatment. Follow these instructions at home: Medicines Take kfth-afs-smxsbpo and prescription medicines only as told by your health care provider. Do not use herbal or alternative medicines unless your health care provider says that you can. Use szts-pue-hwndfmp creams, lubricants, or moisturizers for dryness only as told by your health care provider. General instructions If your atrophic vaginitis is caused by menopause, discuss all of your menopause symptoms and treatment options with your health care provider. Do not douche. Do not use products that can make your vagina dry. These include: ?Scented feminine sprays. ?Scented tampons. ?Scented soaps. Vaginal sex can help to improve blood flow and elasticity of vaginal tissue. If you choose to have sex and it hurts, try using a water-soluble lubricant or moisturizer right before having sex. Contact a health care provider if: Your discharge looks different than normal. Your vagina has an unusual smell. You have new symptoms. Your symptoms do not improve with treatment. Your symptoms get worse. Summary Atrophic vaginitis is a condition in which the tissues that line the vagina become dry and thin. It is most common in women who have stopped having regular menstrual periods (are in menopause). Treatment options include using vaginal lubricants and low-dose vaginal estrogen. Contact a health care provider if your vagina has an unusual smell, or if your symptoms get worse or do not improve after treatment. This information is not intended to replace advice given to you by your health care provider. Make sure you discuss any questions you have with your health care provider. Document Revised: 02/05/2021 Document Reviewed: 02/05/2021 [employer] Patient Education 2023 [employer]. Follow Up Care 03/12/2025 09:26:25 With:Genevieve Jernigan PA-C, URL Address: When: Unknown Comments:Appointment has already been scheduled [facility] 03-12-2025 Note Patient Education Obstetrics and Gynecology Atrophic Vaginitis Atrophic vaginitis is a condition in which the tissues that line the vagina become dry and thin. This condition is most common in women who have stopped having regular menstrual periods (are in menopause). This usually starts when a woman is 45 to 55 years old. That is the time when a woman's estrogen levels begin to decrease. Estrogen is a female hormone. It helps to keep the tissues of the vagina moist. It stimulates the vagina to produce a clear fluid that lubricates the vagina for sex. This fluid also protects the vagina from infection. Lack of estrogen can cause the lining of the vagina to get thinner and dryer. The vagina may also shrink in size. It may become less elastic. Atrophic vaginitis tends to get worse over time as a woman's estrogen level drops. What are the causes? This condition is caused by the normal drop in estrogen that happens around the time of menopause. What increases the risk? Certain conditions or situations may lower a woman's estrogen level, leading to a higher risk for atrophic vaginitis. You are more likely to develop this condition if: ??? You are taking medicines that block estrogen. ??? You have had your ovaries removed. ??? You are being treated for cancer with radiation or medicines (chemotherapy). ??? You have given or are . ??? You are older than age 50. ??? You smoke. What are the signs or symptoms? Symptoms of this condition include: ??? Pain, soreness, a feeling of pressure, or bleeding during sex (dyspareunia). ??? Vaginal burning, irritation, or itching. ??? Pain or bleeding when a speculum is used in a vaginal exam. ??? Having burning pain while urinating. ??? Vaginal discharge. In some cases, there are no symptoms. How is this diagnosed? This condition is diagnosed based on your medical history and a physical exam. This will include a pelvic exam that checks the vaginal tissues. Though rare, you may also have other tests, including: ??? A urine test. ??? A test that checks the acid balance in your vagina (acid balance test). How is this treated? Treatment for this condition depends on how severe your symptoms are. Treatment may include: ??? Using an zfnn-lxu-hrxlnoj vaginal lubricant before sex. ??? Using a long-acting vaginal moisturizer. ??? Using low-dose estrogen for moderate to severe symptoms that do not respond to other treatments. Options include creams, tablets, and inserts (vaginal rings). Before you use a vaginal estrogen, tell your health care provider if you have a history of: ? Breast cancer. ? Endometrial cancer. ? Blood clots. If you are not sexually active and your symptoms are very mild, you may not need treatment. Follow these instructions at home: Medicines ??? Take mzbd-hjq-alhsarg and prescription medicines only as told by your health care provider. ??? Do not use herbal or alternative medicines unless your health care provider says that you can. ??? Use htnr-zpu-zblrvtl creams, lubricants, or moisturizers for dryness only as told by your health care provider. General instructions ??? If your atrophic vaginitis is caused by menopause, discuss all of your menopause symptoms and treatment options with your health care provider. ??? Do not douche. ??? Do not use products that can make your vagina dry. These include: ? Scented feminine sprays. ? Scented tampons. ? Scented soaps. ??? Vaginal sex can help to improve blood flow and elasticity of vaginal tissue. If you choose to have sex and it hurts, try using a water-soluble lubricant or moisturizer right before having sex. Contact a health care provider if: ??? Your discharge looks different than normal. ??? Your vagina has an unusual smell. ??? You have new symptoms. ??? Your symptoms do not improve with treatment. ??? Your symptoms get worse. Summary ??? Atrophic vaginitis is a condition in which the tissues that line the vagina become dry and thin. It is most common in women who have stopped having regular menstrual periods (are in menopause). ??? Treatment options include using vaginal lubricants and low-dose vaginal estrogen. ??? Contact a health care provider if your vagina has an unusual smell, or if your symptoms get worse or do not improve after treatment. This information is not intended to replace advice given to you by your health care provider. Make sure you discuss any questions you have with your health care provider. Document Revised: 02/05/2021 Document Reviewed: 02/05/2021 [employer] Patient Education ? 2023 [employer]. [facility] 01-02-2025 Hospital Discharg e instructions Patient Education 01/02/2025 15:59:05 Overactive Bladder, Adult Overactive Bladder, Adult Overactive bladder is a condition in which a person has a sudden and frequent need to urinate. A person might also leak urine if he or she cannot get to the bathroom fast enough (urinary incontinence). Sometimes, symptoms can interfere with work or social activities. What are the causes? Overactive bladder is associated with poor nerve signals between your bladder and your brain. Your bladder may get the signal to empty before it is full. You may also have very sensitive muscles that make your bladder squeeze too soon. This condition may also be caused by other factors, such as: Medical conditions: ?Urinary tract infection. ?Infection of nearby tissues. ?Prostate enlargement. ?Bladder stones, inflammation, or tumors. ?Diabetes. ?Muscle or nerve weakness, especially from these conditions: ?A spinal cord injury. ?Stroke. ?Multiple sclerosis. ?Parkinson's disease. Other causes: ?Surgery on the uterus or urethra. ?Drinking too much caffeine or alcohol. ?Certain medicines, especially those that eliminate extra fluid in the body (diuretics). ?Constipation. What increases the risk? You may be at greater risk for overactive bladder if you: Are an older adult. Smoke. Are going through menopause. Have prostate problems. Have a neurological disease, such as stroke, dementia, Parkinson's disease, or multiple sclerosis (MS). Eat or drink alcohol, spicy food, caffeine, and other things that irritate the bladder. Are overweight or obese. What are the signs or symptoms? Symptoms of this condition include a sudden, strong urge to urinate. Other symptoms include: Leaking urine. Urinating 8 or more times a day. Waking up to urinate 2 or more times overnight. How is this diagnosed? This condition may be diagnosed based on: Your symptoms and medical history. A physical exam. Blood or urine tests to check for possible causes, such as infection. You may also need to see a health care provider who specializes in urinary tract problems. This is called a urologist. How is this treated? Treatment for overactive bladder depends on the cause of your condition and whether it is mild or severe. Treatment may include: Bladder training, such as: ?Learning to control the urge to urinate by following a schedule to urinate at regular intervals. ?Doing Kegel exercises to strengthen the pelvic floor muscles that support your bladder. Special devices, such as: ?Biofeedback. This uses sensors to help you become aware of your body's signals. ?Electrical stimulation. This uses electrodes placed inside the body (implanted) or outside the body. These electrodes send gentle pulses of electricity to strengthen the nerves or muscles that control the bladder. ?Women may use a plastic device, called a pessary, that fits into the vagina and supports the bladder. Medicines, such as: ?Antibiotics to treat bladder infection. ?Antispasmodics to stop the bladder from releasing urine at the wrong time. ?Tricyclic antidepressants to relax bladder muscles. ?Injections of botulinum toxin type A directly into the bladder tissue to relax bladder muscles. Surgery, such as: ?A device may be implanted to help manage the nerve signals that control urination. ?An electrode may be implanted to stimulate electrical signals in the bladder. ?A procedure may be done to change the shape of the bladder. This is done only in very severe cases. Follow these instructions at home: Eating and drinking Make diet or lifestyle changes recommended by your health care provider. These may include: ?Drinking fluids throughout the day and not only with meals. ?Cutting down on caffeine or alcohol. ?Eating a healthy and balanced diet to prevent constipation. This may include: ?Choosing foods that are high in fiber, such as beans, whole grains, and fresh fruits and vegetables. ?Limiting foods that are high in fat and processed sugars, such as fried and sweet foods. Lifestyle Lose weight if needed. Do not use any products that contain nicotine or tobacco. These include cigarettes, chewing tobacco, and vaping devices, such as e-cigarettes. If you need help quitting, ask your health care provider. General instructions Take httq-wve-gsfqqhh and prescription medicines only as told by your health care provider. If you were prescribed an antibiotic medicine, take it as told by your health care provider. Do not stop taking the antibiotic even if you start to feel better. Use any implants or pessary as told by your health care provider. If needed, wear pads to absorb urine leakage. Keep a log to track how much and when you drink, and when you need to urinate. This will help your health care provider monitor your condition. Keep all follow-up visits. This is important. Contact a health care provider if: You have a fever or chills. Your symptoms do not get better with treatment. Your pain and discomfort get worse. You have more frequent urges to urinate. Get help right away if: You are not able to control your bladder. Summary Overactive bladder refers to a condition in which a person has a sudden and frequent need to urinate. Several conditions may lead to an overactive bladder. Treatment for overactive bladder depends on the cause and severity of your condition. Making lifestyle changes, doing Kegel exercises, keeping a log, and taking medicines can help with this condition. This information is not intended to replace advice given to you by your health care provider. Make sure you discuss any questions you have with your health care provider. Document Revised: 04/27/2021 Document Reviewed: 04/27/2021 [employer] Patient Education 2023 [employer]. 01/02/2025 15:59:05 Urinary Incontinence Urinary Incontinence Urinary incontinence refers to a condition in which a person is unable to control where and when to pass urine. A person with this condition will urinate involuntarily. This means that the person urinates when he or she does not mean to. What are the causes? This condition may be caused by: Medicines. Infections. Constipation. Overactive bladder muscles. Weak bladder muscles. Weak pelvic floor muscles. These muscles provide support for the bladder, intestine, and, in women, the uterus. Enlarged prostate in men. The prostate is a gland near the bladder. When it gets too big, it can pinch the urethra. With the urethra blocked, the bladder can weaken and lose the ability to empty properly. Surgery. Emotional factors, such as anxiety, stress, or post-traumatic stress disorder (PTSD). Spinal cord injury, nerve injury, or other neurological conditions. Pelvic organ prolapse. This happens in women when organs move out of place and into the vagina. This movement can prevent the bladder and urethra from working properly. What increases the risk? The following factors may make you more likely to develop this condition: Age. The older you are, the higher the risk. Obesity. Being physically inactive. and childbirth. Menopause. Diseases that affect the nerves or spinal cord. Long-term, or chronic, coughing. This can increase pressure on the bladder and pelvic floor muscles. What are the signs or symptoms? Symptoms may vary depending on the type of urinary incontinence you have. They include: A sudden urge to urinate, and passing urine involuntarily before you can get to a bathroom (urge incontinence). Suddenly passing urine when doing activities that force urine to pass, such as coughing, laughing, exercising, or sneezing (stress incontinence). Needing to urinate often but urinating only a small amount, or constantly dribbling urine (overflow incontinence). Urinating because you cannot get to the bathroom in time due to a physical disability, such as arthritis or injury, or due to a communication or thinking problem, such as Alzheimer's disease (functional incontinence). How is this diagnosed? This condition may be diagnosed based on: Your medical history. A physical exam. Tests, such as: ?Urine tests. ?X-rays of your kidney and bladder. ?Ultrasound. ?CT scan. ?Cystoscopy. In this procedure, a health care provider inserts a tube with a light and camera (cystoscope) through the urethra and into the bladder to check for problems. ?Urodynamic testing. These tests assess how well the bladder, urethra, and sphincter can store and release urine. There are different types of urodynamic tests, and they vary depending on what the test is measuring. To help diagnose your condition, your health care provider may recommend that you keep a log of when you urinate and how much you urinate. How is this treated? Treatment for this condition depends on the type of incontinence that you have and its cause. Treatment may include: Lifestyle changes, such as: ?Quitting smoking. ?Maintaining a healthy weight. ?Staying active. Try to get 150 minutes of moderate-intensity exercise every week. Ask your health care provider which activities are safe for you. ?Eating a healthy diet. ?Avoid high-fat foods, like fried foods. ?Avoid refined carbohydrates like white bread and white rice. ?Limit how much alcohol and caffeine you drink. ?Increase your fiber intake. Healthy sources of fiber include beans, whole grains, and fresh fruits and vegetables. Behavioral changes, such as: ?Pelvic floor muscle exercises. ?Bladder training, such as lengthening the amount of time between bathroom breaks, or using the bathroom at regular intervals. ?Using techniques to suppress bladder urges. This can include distraction techniques or controlled breathing exercises. Medicines, such as: ?Medicines to relax the bladder muscles and prevent bladder spasms. ?Medicines to help slow or prevent the growth of a man's prostate. ?Botox injections. These can help relax the bladder muscles. Treatments, such as: ?Using pulses of electricity to help change bladder reflexes (electrical nerve stimulation). ?For women, using a medical office secretary to prevent urine leaks. This is a small, tampon-like, disposable device that is inserted into the urethra. ?Injecting collagen or carbon beads (bulking agents) into the urinary sphincter. These can help thicken tissue and close the bladder opening. ?Surgery. Follow these instructions at home: Lifestyle Limit alcohol and caffeine. These can fill your bladder quickly and irritate it. Keep yourself clean to help prevent odors and skin damage. Ask your health care provider about special skin creams and cleansers that can protect the skin from urine. Consider wearing pads or adult diapers. Make sure to change them regularly, and always change them right after experiencing incontinence. General instructions Take qjqq-jvn-wixyouq and prescription medicines only as told by your health care provider. Use the bathroom about every 3 4 hours, even if you do not feel the need to urinate. Try to empty your bladder completely every time. After urinating, wait a minute. Then try to urinate again. Make sure you are in a relaxed position while urinating. If your incontinence is caused by nerve problems, keep a log of the medicines you take and the times you go to the bathroom. Keep all follow-up visits. This is important. Where to find more information [employer] [place] [employer] and [employer]estive and Kidney Diseases: www.niddk.nih.gov [employer] [facility] [employer]: www.urologyhealth.org Contact a health care provider if: You have pain that gets worse. Your incontinence gets worse. Get help right away if: You have a fever or chills. You are unable to urinate. You have redness in your groin area or down your legs. Summary Urinary incontinence refers to a condition in which a person is unable to control where and when to pass urine. This condition may be caused by medicines, infection, weak bladder muscles, weak pelvic floor muscles, enlargement of the prostate (in men), or surgery. Factors such as older age, obesity, and childbirth, menopause, neurological diseases, and chronic coughing may increase your risk for developing this condition. Types of urinary incontinence include urge incontinence, stress incontinence, overflow incontinence, and functional incontinence. This condition is usually treated first with lifestyle and behavioral changes, such as quitting smoking, eating a healthier diet, and doing regular pelvic floor exercises. Other treatment options include medicines, bulking agents, medical devices, electrical nerve stimulation, or surgery. This information is not intended to replace advice given to you by your health care provider. Make sure you discuss any questions you have with your health care provider. Document Revised: 03/13/2021 Document Reviewed: 03/13/2021 [employer] Patient Education 2023 Vyatta. Follow Up Care 12/14/2024 11:11:36 With:Genevieve Jernigan PA-C, SHIN Address: When: Unknown Comments:3 month f/u w/ [facility] 01-02-2025 Note Patient Education Obstetrics and Gynecology Overactive Bladder, Adult Overactive bladder is a condition in which a person has a sudden and frequent need to urinate. A person might also leak urine if he or she cannot get to the bathroom fast enough (urinary incontinence). Sometimes, symptoms can interfere with work or social activities. What are the causes? Overactive bladder is associated with poor nerve signals between your bladder and your brain. Your bladder may get the signal to empty before it is full. You may also have very sensitive muscles that make your bladder squeeze too soon. This condition may also be caused by other factors, such as: ??? Medical conditions: ? Urinary tract infection. ? Infection of nearby tissues. ? Prostate enlargement. ? Bladder stones, inflammation, or tumors. ? Diabetes. ? Muscle or nerve weakness, especially from these conditions: ? A spinal cord injury. ? Stroke. ? Multiple sclerosis. ? Parkinson's disease. ??? Other causes: ? Surgery on the uterus or urethra. ? Drinking too much caffeine or alcohol. ? Certain medicines, especially those that eliminate extra fluid in the body (diuretics). ? Constipation. What increases the risk? You may be at greater risk for overactive bladder if you: ??? Are an older adult. ??? Smoke. ??? Are going through menopause. ??? Have prostate problems. ??? Have a neurological disease, such as stroke, dementia, Parkinson's disease, or multiple sclerosis (MS). ??? Eat or drink alcohol, spicy food, caffeine, and other things that irritate the bladder. ??? Are overweight or obese. What are the signs or symptoms? Symptoms of this condition include a sudden, strong urge to urinate. Other symptoms include: ??? Leaking urine. ??? Urinating 8 or more times a day. ??? Waking up to urinate 2 or more times overnight. How is this diagnosed? This condition may be diagnosed based on: ??? Your symptoms and medical history. ??? A physical exam. ??? Blood or urine tests to check for possible causes, such as infection. You may also need to see a health care provider who specializes in urinary tract problems. This is called a urologist. How is this treated? Treatment for overactive bladder depends on the cause of your condition and whether it is mild or severe. Treatment may include: ??? Bladder training, such as: ? Learning to control the urge to urinate by following a schedule to urinate at regular intervals. ? Doing Kegel exercises to strengthen the pelvic floor muscles that support your bladder. ??? Special devices, such as: ? Biofeedback. This uses sensors to help you become aware of your body's signals. ? Electrical stimulation. This uses electrodes placed inside the body (implanted) or outside the body. These electrodes send gentle pulses of electricity to strengthen the nerves or muscles that control the bladder. ? Women may use a plastic device, called a pessary, that fits into the vagina and supports the bladder. ??? Medicines, such as: ? Antibiotics to treat bladder infection. ? Antispasmodics to stop the bladder from releasing urine at the wrong time. ? Tricyclic antidepressants to relax bladder muscles. ? Injections of botulinum toxin type A directly into the bladder tissue to relax bladder muscles. ??? Surgery, such as: ? A device may be implanted to help manage the nerve signals that control urination. ? An electrode may be implanted to stimulate electrical signals in the bladder. ? A procedure may be done to change the shape of the bladder. This is done only in very severe cases. Follow these instructions at home: Eating and drinking ??? Make diet or lifestyle changes recommended by your health care provider. These may include: ? Drinking fluids throughout the day and not only with meals. ? Cutting down on caffeine or alcohol. ? Eating a healthy and balanced diet to prevent constipation. This may include: ? Choosing foods that are high in fiber, such as beans, whole grains, and fresh fruits and vegetables. ? Limiting foods that are high in fat and processed sugars, such as fried and sweet foods. Lifestyle ??? Lose weight if needed. ??? Do not use any products that contain nicotine or tobacco. These include cigarettes, chewing tobacco, and vaping devices, such as e-cigarettes. If you need help quitting, ask your health care provider. General instructions ??? Take doox-uqk-reoipwu and prescription medicines only as told by your health care provider. ??? If you were prescribed an antibiotic medicine, take it as told by your health care provider. Do not stop taking the antibiotic even if you start to feel better. ??? Use any implants or pessary as told by your health care provider. ??? If needed, wear pads to absorb urine leakage. ??? Keep a log to track how much and when you drink, and whe (more content not included)... [facility] 12-11-2024 Evaluation note Diagnosis Onset Date Resolution Fracture of radial head, right, closed acute December 11, 2024 1:17pm ASHD (arteriosclerotic heart disease) acute January 28, 2025 2:29pm Cigarette nicotine dependence in remission acute January 2:29pm Encounter for screening mammogram for malignant neoplasm of breast acute January 28 2:29pm Essential hypertension acute Ju 2024 2:29pm Lumbar spondylosis acute January 282024 2:29pm DUSTIN (obstructive sleep apnea) acute January 28, 2025 2:29pm Pulmonary nodule acute January 2:29pm Pure hypercholesterolemia acute January 28, 2025 2:29pm Restrictive lung disease acute January 28, 2025 2:29pm Type 2 diabetes mellitus with hyperglycemia acute January 28 2:29pm Medicare annual wellness visit, subsequent noneactive January 28, 2025 2:29pm Fracture of radial head, right, closed acute February 05, 2025 12:35pm Diverticulitis large intestine acute February 07, 2025 9:44am Type 2 diabetes mellitus with hyperglycemia acute February 07 9:44am [facility] Work Phone: 1(322) 981-634203-17-2025 Evaluation note* Diagnosis Onset Date Resolution Status Admit Date ASHD (arteriosclerotic heart disease) acute November 05, 2024 2:07pm Essential hypertension acute [facility] 2024 2:07pm Fracture of radial head, rig ht, closed acute November 05, 2024 2:07pm Interstitial lung disease acute November 05, 2024 2:07pm DUSTIN (obstructive sleep apnea) acute November 05, 2024 2:07pm Pulmonary nodule acute November 052024 2:07pm Restrictive lung disease acute November 05, 2024 2:07pm Type 2 diabetes mellitus wit h hyperglycemia acute November 05, 2024 2:07pm Fracture of radial head, rig ht, closed acute November 06, 2024 12:00pm Fracture of radial head, rig ht, closed acute December 11, 2024 1:17pm [facility] Work Phone: 1(508) 858-869403-17-2025 Evaluation note* Diagnosis Onset Date Resolution Status Admit Date ASHD (arteriosclerotic heart disease) acute November 05, 2024 2:07pm Essential hypertension acute [facility] 2024 2:07pm Fracture of radial head, rig ht, closed acute November 05, 2024 2:07pm Interstitial lung disease acute November 05, 2024 2:07pm DUSTIN (obstructive sleep apnea) acute November 05, 2024 2:07pm Pulmonary nodule acute November 052024 2:07pm Restrictive lung disease acute November 05, 2024 2:07pm Type 2 diabetes mellitus wit h hyperglycemia acute November 05, 2024 2:07pm Fracture of radial head, rig ht, closed acute November 06, 2024 12:00pm Fracture of radial head, rig ht, closed acute December 11, 2024 1:17pm ASHD (arteriosclerotic heart disease) acute January 28, 2025 2:29pm Cigarette nicotine dependenc e in remission acute January 28, 2025 2:29pm Encounter for screening mamm ogram for malignant neoplasm of breast acute January 28, 2025 2:29pm Essential hypertension acute 2024 2:29pm Interstitial lung disease acute January 28, 2025 2:29pm Lumbar spondylosis acute January 282024 2:29pm DUSTIN (obstructive sleep apnea) acute January 28, 2025 2:29pm Pulmonary nodule acute January 2:29pm Pure hypercholesterolemia acute January 28, 2025 2:29pm Restrictive lung disease acute January 28, 2025 2:29pm Type 2 diabetes mellitus wit h hyperglycemia acute January 28, 2025 2:29pm Medicare annual wellness vis it, subsequent noneactive January 28, 2025 2:29pm [facility] Work Phone: 1(417) 619-707312-23-2024 Evaluation note* Diagnosis Onset Date Resolution Status Admit Date Acute vasomotor rhinitis acute August 13, 2024 10:18am Bradycardia acute July 10:18am Cerumen impaction acute [facility] r 2023 10:18am [facility] Work Phone: 1(475) 357-627612-23-2024 Evaluation note* Diagnosis Onset Date Resolution Status Admit Date Acute vasomotor rhinitis acute August 13, 2024 10:18am Bradycardia acute July 10:18am Cerumen impaction acute Decee r 2023 10:18am ASHD (arteriosclerotic heart disease) acute November 05, 2024 2:07pm Essential hypertension acute [facility] 2024 2:07pm Interstitial lung disease acute November 05, 2024 2:07pm DUSTIN (obstructive sleep apnea) acute November 05, 2024 2:07pm Pulmonary nodule acute November 052024 2:07pm Restrictive lung disease acute November 05, 2024 2:07pm Type 2 diabetes mellitus wit h hyperglycemia acute November 05, 2024 2:07pm [facility] Work Phone: 1(602) 953-909412-23-2024 Evaluation note* Diagnosis Onset Date Resolution Status Admit Date Acute vasomotor rhinitis acute August 13, 2024 10:18am Bradycardia acute July 10:18am Cerumen impaction acute Decembe r 2023 10:18am ASHD (arteriosclerotic heart disease) acute November 05, 2024 2:07pm Essential hypertension acute [facility] 2024 2:07pm Fracture of radial head, rig ht, closed acute November 05, 2024 2:07pm Interstitial lung disease acute November 05, 2024 2:07pm DUSTIN (obstructive sleep apnea) acute November 05, 2024 2:07pm Pulmonary nodule acute November 052024 2:07pm Restrictive lung disease acute November 05, 2024 2:07pm Type 2 diabetes mellitus wit h hyperglycemia acute November 05, 2024 2:07pm Fracture of radial head, rig ht, closed acute November 06, 2024 12:00pm [facility] Work Phone: 1(253) 783-936510-09-2024 Evaluation + Plan note Diagnostic Tests Pending * Urine Cytology ([facility]) 05/30/24 [facility] 10-09-2024 Hospital Discharge instructions Patient Education 05/30/2024 09:09:41 Hematuria, Adult Hematuria, Adult Hematuria is blood in the urine. Blood may be visible in the urine, or it may be identified with a test. This condition can be caused by infections of the bladder, urethra, kidney, or prostate. Otherpossible causes include: Kidney stones. Cancer of the [...] blood in your urine, even if it ispainless or the blood stops without treatment. Blood in the urine, when it happens and then stops and then happens again, can be a symptom of a very serious condition, including cancer. There is no pain in the initial stages of many urinary cancers. Follow these instructions at home: Medicines Take hteo-vpg-tpytfey and prescription medicines only as told by your health care provider. If you were prescribed an antibiotic medicine, take it as told by your health care provider. Do notstop taking the antibiotic even if you start to feel better. Eating and drinking Drink enough fluid to keep your urine pale yellow. It is recommended that you drink 3 4 quarts (2.83.8 L) a day. If you have been diagnosed with an infection, drinking cranberry juice in addition tolarge amounts of water is recommended. Avoid caffeine, [...] about any blood in your urine, even ifit is painless or the blood stops without treatment. Take kwtf-pkn-scinkzn and prescription medicines only as told by your health care provider. Drink enough fluid to keep your urine pale yellow. This information is not intended to replace advice given to you by your health care provider. Make sure you discuss any questions you have with your health care provider. Document Revised: 04/08/2021 Document Reviewed: 04/08/2021 [employer] Patient Education 2023 Vyatta. 05/30/2024 09:04:34 Cystoscopy Cystoscopy Cystoscopy is a [...] including vitamins, herbs, eye drops, creams, and wvpx-viq-scazmrt medicines. Any problems you or family members [...] provider tells you to take them. Taking tzxg-eyf-wuvslpp medicines, vitamins, herbs, and supplements. Tests You [...] Follow these instructions at home: Medicines Take huvj-jfx-xrwrdeb and prescription medicines only as told by your health care provider. If you were prescribed an antibiotic medicine, take it as told by your health care provider. Do notstop taking the antibiotic even if you start [...] blood in your urine increases, call your healthcare provider. Follow instructions from your health care provider about eating or drinking restrictions. If a tissue sample was removed for testing (biopsy) during your procedure, it is up to you to get your test results. Ask your health care provider, or the department that is doing the test, when yourresults will be ready. Drink enough fluid to [...] blood in your urine increases, call your healthcare provider. If you were prescribed an antibiotic medicine, take it as told by your health care provider. Do notstop taking the antibiotic even if you start to feel better. This information is not intended to replace advice given to you by your health care provider. Make sure you discuss any questions you have with your health care provider. Document Revised: 04/21/2022 Document Reviewed: 03/20/2021 [employer] Patient Education 2023 Vyatta. Follow Up Care 2024 11:11:22 With:Evgeny CHO, Kari Bob, SHNI, URO Address: [address] [place] [address]- [phone] When: Unknown Comments:sched cysto [facility] 10-09-2024 NotePatient Education Urology Hematuria, Adult Hematuria is blood in the urine. Blood may be visible in the urine, or it may be identified with a test. This condition can be caused by infections of the bladder, urethra, kidney, or prostate. Otherpossible causes include: ? Kidney stones. ? Cancer [...] blood in your urine, even if it ispainless or the blood stops without treatment. Blood in the urine, when it happens and then stops and then happens again, can be a symptom of a very serious condition, including cancer. There is no pain in the initial stages of many urinary cancers. Follow these instructions at home: Medicines ? Take cxdu-adg-efhscew and prescription medicines only as told by [...] Ask your health care provider, or the departmentthat is doing the test, when your results [...] the blood stops without treatment. ? Take fwpg-cgn-fvgqdnb and prescription medicines only as told by your health care provider. ? Drink enough fluid to keep your urine pale yellow. This information is not intended to replace advice given to you by your health care provider. Make sure you discuss any questions you have with your health care provider. Document Revised: 04/08/2021 Document Reviewed: 04/08/2021 [employer] Patient Education ? 2023 Vyatta. Cystoscopy Cystoscopy is a procedure that is [...] drops, creams, and over-th (more content not included)...[facility]02-[facility]-2024 Evaluation note* Encounter Date Diagnosis Assessment Notes Treatment Notes Treatment Clinical Notes Sep, Acute bilateral thoracic back pain (ICD-10 - M54.6) [facility] Other [id number] Evaluation note* Encounter Date Diagnosis Assessment Notes [...] use, the patient reduces the risk for UT, CVA, HTN, cardiac dysrhythmias and sudden cardiac [...] smoker would recommend repeat in 12 months. [facility] Other 12-14-2023 Evaluation note* Encounter Date Diagnosis Assessment Notes Treatment Notes Treatment Clinical Notes Jul, Restrictive lung disease (ICD-10 - J98.4) [facility] Other 11-28-2023 Evaluation note* Encounter Date Diagnosis [...] Send for COVID PCR - results negative [facility] Other 10-25-2023 Evaluation note* Encounter Date Diagnosis Assessment Notes Treatment Notes Treatment Clinical Notes May, Age-related osteoporosis without current pathological fracture (ICD-10 - M81.0) [facility] Other 10-19-2023 Evaluation note* Encounter Date Diagnosis Assessment Notes Treatment Notes Treatment Clinical Notes May, Acute bilateral thoracic back pain (ICD-10 - M54.6) [facility] Other 10-18-2023 Evaluation note* Encounter Date Diagnosis [...] index [BMI] 34.0-34.9, adult (ICD-10 - Z68.34) [facility] Other 10-13-2023 Evaluation note* Encounter Date Diagnosis Assessment Notes Treatment Notes Treatment Clinical Notes May, Simple chronic bronchitis (ICD-10 - J41.0) Continue LABA/ICS Use DIMITRI as needed for cough/wheezing. Control allergies and GERD symptoms. Weight loss May, Restrictive lung disease (ICD-10 - J98.4) Weight loss important. Avoid exposure to dust, smoke and allergens. Continue treatment for DUSTIN Refer to Acls Nurse for evaluation and treatment May, DUSTIN (obstructive sle ep apnea) (ICD-10 - G47.33) This patient is aware of the benefits associated with DUSTIN: With continued use, the patient reduces the risk for UT, CVA, HTN, cardiac dysrhythmias and sudden cardiac [...] continue exercise to achieve/maintain a normal BMI. [facility] Other 08-31-2023 Evaluation note* Encounter Date Diagnosis Assessment Notes Treatment Notes Treatment Clinical Notes Mar, Chronic bronchitis, simple (ICD-10 - J41.0) [facility] Other 08-30-2023 Evaluation note* Encounter Date Diagnosis Assessment Notes Treatment Notes Treatment Clinical Notes Mar, Chronic bronchitis, simple (ICD-10 - J41.0) [facility] Other 08-30-2023 Evaluation note* Encounter Date Diagnosis Assessment Notes Treatment Notes Treatment Clinical Notes Mar, Chronic bronchitis, simple (ICD-10 - J41.0) Mar, DOUGLAS (dyspnea on exertion) (ICD-10 - R06.09) [facility] Other 08-28-2023 Evaluation note* Encounter Date Diagnosis Assessment Notes Treatment Notes Treatment Clinical Notes Mar, Pulmonary nodule (ICD-10 - R91.1) [facility] Other 08-22-2023 Evaluation note* Encounter Date Diagnosis Assessment Notes Treatment Notes Treatment Clinical Notes Mar, Pulmonary nodule (ICD-10 - R91.1) [facility] Other 08-22-2023 Evaluation note* Encounter Date Diagnosis [...] [BMI ] 34.0-34.9, adult (ICD-10 - Z68.34) [facility] Other 08-17-2023 Evaluation note* Encounter Date Diagnosis Assessment Notes Treatment Notes Treatment Clinical Notes Mar, Acute bilateral low back pain without sciatica (ICD-10 - M54.50) [facility] Other 08-08-2023 Evaluation note* Encounter Date Diagnosis [...] 3 mo as needed. Continue weight loss [facility] Other 04-09-2023 Evaluation note* Encounter Date Diagnosis Assessment Notes Treatment Notes Treatment Clinical Notes Nov, Obstructive sleep apnea (adult) (pediatric) (ICD-10 - G47.33) AHI 34, CPAP14, [facility] Other 04-06-2023 Evaluation note* Encounter Date Diagnosis [...] is aware of the benefits associated with DSUTIN: With continued use, the patient reduces the risk for UT, CVA, HTN, cardiac dysrhythmias and sudden cardiac [...] High risk medication use (ICD-10 - Z79.899) [facility] Other 03-13-2023 Evaluation note* Encounter Date Diagnosis Assessment Notes Treatment Notes Treatment Clinical Notes Oct, Acute non-recurrent maxillary sinusitis (ICD-10 - J01.00) Instructed to use Flonase NS for congestion, Tessalon for cough, Tylenol for pain and fever. Oct, Acute cough (ICD-10 - R05.1) Head upright, push fluids and Tessalon perles [employer] Other 02-28-2023 Evaluation note* Encounter Date Diagnosis Assessment Notes Treatment Notes Treatment Clinical Notes Sep, Pure hypercholestero lemia (ICD-10 - E78.00) [facility] Other Evaluation + Plan note Future Appointments Appointment Date:04/03/2025 12:30:00 PM Scheduled Provider:Genevieve Jernigan PA-C Location:[place] Appointment Type:URO Office Visit [facility] evaluation + Plan note Future Appointments Appointment Date:04/10/2025 08:30:00 AM Scheduled Provider:Genevieve Jernigan PA-C Location:[place] Appointment Type:URO Office Visit [facility] Evaluation [facility] Other Evaluation noteNo assessment information available [facility] Work Phone: History general Narrative - Reported* Type Description Date Medical History Essential hypertension Medical History ASHD (arteriosclerotic heart dis ease) Medical History Chronic venous insufficiency Medical History Chronic bronchitis, simple Medical History High cholesterol Medical History Lumbar spondylosis Medical History Obesity (BMI 30-39.9) Medical History Obstructive sleep apnea (adult) (pediatric) [facility] Other History general Narrative - Reported* Type [...] COLONSCOPY 2018 Hospitalization History SEE SURGICAL HX [facility] Other History general Narrative - Reported* Type [...] COLONSCOPY 2018 Hospitalization History SEE SURGICAL HX [facility] Other Hisqlbc general Narrative - Reported* Type Description Date [...] History COLONSCOPY 2018 Hospitalization History SEE SURGICAL [facility] Other Hospital course Narrative No data available for this section [facility] Discharge instructions No data available for this section [facility] Progress note No data available for this section [facility] reason for referral (narrative)* Reason Referral for COPD an d RLD Diagnosis 1 Restrictive lung dis ease (J98.4) Diagnosis 2 Chronic bronchitis, simple (J41.0) Diagnosis 3 Pulmonary nodule (R9 1.1) Diagnosis 4 Cigarette nicotine d ependence in remission (F17.211) Referral Organization [facility] [employer] karin Referring Provider First Name Edwin Referring Provider Last Name Marques Referring Provider Specialty Internal N[place] dicine Referred Organization [facility] Referred Provider Yany Martinez Referred Address ,[place], [place],[address] Referred Provider Specialty Pulmonary Di seases Referral Priority Routine General Notes Patient with hx of t obacco use and CT, PFT findings suspicious for COPD/emphysema and ILD. Obesity may contribute to respiratory complaints. Clinical Notes Labs, CT, PFT [facility] Other Reason for referral (narrative)* Reason Referral for persist ent thoracolumbar spine pain Diagnosis 1 Acute bilateral thor acic back pain (M54.6) Diagnosis 2 Lumbar spondylosis ( M47.816) Diagnosis 3 Age-related osteopor osis without current pathological fracture (M81.0) Referral Organization [facility] [employer] karin Referring Provider First Name Edwin Referring Provider Last Name Marques Referring Provider Specialty Internal Nj dicine Referred Organization [facility] Referred Provider Freddie Cotton Referred Address [address], [place],[address] Referred Provider Specialty Pain Medicin e Referral Priority Routine General Notes Patient w/ known deg enerative arthritis of the spine w/ persistent moderate to severe thoracolumbar spine pain w/ paraspinal muscle spasms. Completed PT w/ some temporary improvement. Stretching, Tylenol and Tramadol helping w/ the pain. Refer for alternative treatment for persistent back pain. [facility] Other Reason for referral (narrative)No reason for referral [facility] Work Phone: Summary Purpose Family History No Family History Records Found Relationship Condition Age at Onset Recorded Date/T mervin father Unknown mother Unknown Advance Directives No Advanced Directives Records Found Advance Directive Response Recorded Date/ Time Advance Directives No April 11:03am Chief Complaint and Reason for Visit Chief Complaint J41.0 R06.09 Chief Complaint Admit Date ears plugged August 13, 2024 10:18am fall, right arm injury November 03, 2024 4:31pm Reason for Visit Admit Date Acute vasomotor rhinitis August 13, 2024 10:18am Bradycardia August 13, 2024 10:18am Cerumen impaction August 13, 2024 10:18am Chief Complaint Admit Date ears plugged August 13, 2024 10:18am fall, right arm injury November 03, 2024 4:31pm 4 month f/u-HIGH RISK November 05, 2024 2 :07pm Reason for Visit Admit Date Acute vasomotor rhinitis August 13, 2024 10:18am Bradycardia August 13, 2024 10:18am Cerumen impaction August 13, 2024 10:18am ASHD (arteriosclerotic heart disease) [facility] 2024 2:07pm Essential hypertension November 05, 2024 2:07pm Interstitial lung disease November 05 2:07pm DUSTIN (obstructive sleep apnea) October 2:07pm Pulmonary nodule November 05, 2024 2:0 7pm Restrictive lung disease November 05 2:07pm Type 2 diabetes mellitus with hyperglyce justin November 05, 2024 2:07pm Chief Complaint Admit Date ears plugged August 13, 2024 10:18am fall, right arm injury November 03, 2024 4:31pm 4 month f/u-HIGH RISK November 05, 2024 2 :07pm S52.124D - Nondisplaced fracture of head of right November 06, 2024 8:28am ER [facility] RT ELBOW FX WX November 06, 2024 12:00pm Reason for Visit Admit Date Acute vasomotor rhinitis August 13, 2024 10:18am Bradycardia August 13, 2024 10:18am Cerumen impaction August 13, 2024 10:18am ASHD (arteriosclerotic heart disease) [facility] 2024 2:07pm Essential hypertension November 05, 2024 2:07pm Fracture of radial head, right, closed M arch 2024 2:07pm Interstitial lung disease November 05 2:07pm DUSTIN (obstructive sleep apnea) October 2:07pm Pulmonary nodule November 05, 2024 2:0 7pm Restrictive lung disease November 05 2:07pm Type 2 diabetes mellitus with hyperglyce justin November 05, 2024 2:07pm Fracture of radial head, right, closed M arch 2024 12:00pm Chief Complaint Admit Date fall, right arm injury November 03, 2024 4:31pm 4 month f/u-HIGH RISK November 05, 2024 2 :07pm S52.124D - Nondisplaced fracture of head of right November 06, 2024 8:28am ER [facility] RT ELBOW FX WX November 06, 2024 12:00pm S52.124D - Nondisplaced fracture of head of right December 11, 2024 11:15am 5 WEEKS December 11, 2024 1:1 7pm Reason for Visit Admit Date ASHD (arteriosclerotic heart disease) [facility] 2024 2:07pm Essential hypertension November 05, 2024 2:07pm Fracture of radial head, right, closed M arch 2024 2:07pm Interstitial lung disease November 05 2:07pm DUSTIN (obstructive sleep apnea) October 2:07pm Pulmonary nodule November 05, 2024 2:0 7pm Restrictive lung disease November 05 2:07pm Type 2 diabetes mellitus with hyperglyce justin November 05, 2024 2:07pm Fracture of radial head, right, closed M arch 2024 12:00pm Fracture of radial head, right, closed A pril 2024 1:17pm Chief Complaint Admit Date fall, right arm injury November 03, 2024 4:31pm 4 month f/u-HIGH RISK November 05, 2024 2 :07pm S52.124D - Nondisplaced fracture of head of right November 06, 2024 8:28am ER [facility] RT ELBOW FX WX November 06, 2024 12:00pm S52.124D - Nondisplaced fracture of head of right December 11, 2024 11:15am 5 WEEKS December 11, 2024 1:1 7pm Wellness-HIGH RISK January 28, 2025 2:29p m Reason for Visit Admit Date ASHD (arteriosclerotic heart disease) [facility] 2024 2:07pm Essential hypertension November 05, 2024 2:07pm Fracture of radial head, right, closed M arch 2024 2:07pm Interstitial lung disease November 05 2:07pm DUSTIN (obstructive sleep apnea) October 2:07pm Pulmonary nodule November 05, 2024 2:0 7pm Restrictive lung disease November 05 2:07pm Type 2 diabetes mellitus with hyperglyce justin November 05, 2024 2:07pm Fracture of radial head, right, closed M arch 2024 12:00pm Fracture of radial head, right, closed A pril 2024 1:17pm ASHD (arteriosclerotic heart disease) [place] 2024 2:29pm [facility] January 28, 2025 2:29pm Encounter for screening mamm ogram for malignant neoplasm of breast January 28, 2025 2:29pm Essential hypertension January 28, 2025 2: 29pm Interstitial lung disease January 28, 2025 2:29pm Lumbar spondylosis January 28, 2025 2:29p m DUSTIN (obstructive sleep apnea) January 28, 2025 2:29pm Pulmonary nodule January 28, 2025 2:29p m Pure hypercholesterolemia January 28, 2025 2:29pm Restrictive lung disease January 28, 2025 2:29pm Type 2 diabetes mellitus with hyperglyce justin January 28, 2025 2:29pm Medicare annual wellness visit, ezrae nt January 28, 2025 2:29pm Chief Complaint Admit Date S52.124D - Nondisplaced fracture of head of right December 11, 2024 11:15am 5 WEEKS December 11, 2024 1:1 7pm Wellness-HIGH RISK January 28, 2025 2:29p m S52.124D - Nondisplaced fracture of head of right February 05, 2025 8:43am 8 wk recheck February 05, 2025 12:3 5pm Diverticulitis February 07, 2025 9:44 am UA, blood in urine, spasm, low output Ju ly 2024 11:48am Reason for Visit Admit Date Fracture of radial head, right, closed A pril 2024 1:17pm ASHD (arteriosclerotic heart disease) [place] 2024 2:29pm Cigarette nicotine dependence in [place] on January 28, 2025 2:29pm Encounter for screening mamm ogram for malignant neoplasm of breast January 28, 2025 2:29pm Essential hypertension January 28, 2025 2: 29pm Lumbar spondylosis January 28, 2025 2:29p m DUSTIN (obstructive sleep apnea) January 28, 2025 2:29pm Pulmonary nodule January 28, 2025 2:29p m Pure hypercholesterolemia January 28, 2025 2:29pm Restrictive lung disease January 28, 2025 2:29pm Type 2 diabetes mellitus with hyperglyce justin January 28, 2025 2:29pm Medicare annual wellness visit, ezrae nt January 28, 2025 2:29pm Fracture of radial head, right, closed J une 2024 12:35pm Diverticulitis large intestine January 9:44am Type 2 diabetes mellitus with hyperglyce justin February 07, 2025 9:44am Additional Source Comments REASON FOR VISIT (unrecogniz ed section and content) Medication QuestionCongestio n [phone] ATBwellnessNo InformationCPAP Equipment?4 month follow upBack SpasmsNo InformationXR resultsreferral for PTNo InformationNo InformationNo InformationCT resultsDifferent InhalerPFT resultstesting resultsback painMedicationNo InformationDexa [id number] cold/sore throatNo Information4 month Follow upHR-AtenololUpdateNo Information INFORMATION SOURCE (unrecogn ized section and content) DATE CREATED AUTHOR 01/01/2023 [facility] DATE CREATED AUTHOR AUTHOR'S ORGANIZ ATION 08/05/2023 [facility] DATE CREATED AUTHOR AUTHOR'S ORGANIZ ATION 04/05/2024 [facility] EPIC DATE CREATED AUTHOR AUTHOR'S ORGANIZ ATION 06/06/2024 [facility] DATE CREATED AUTHOR AUTHOR'S ORGANIZ ATION 03/04/2025 [facility] DATE CREATED AUTHOR AUTHOR'S ORGANIZ ATION 03/13/2025 [facility] [employer] DATE CREATED AUTHOR AUTHOR'S ORGANIZ ATION 03/14/2025 [facility] DATE CREATED AUTHOR AUTHOR'S ORGANIZ ATION 03/15/2025 [facility] DATE CREATED AUTHOR AUTHOR'S ORGANIZ ATION 03/20/2025 [facility] DATE CREATED AUTHOR AUTHOR'S ORGANIZ ATION 03/21/2025 [facility] DATE CREATED AUTHOR AUTHOR'S ORGANIZ ATION [facility] Care Teams (unrecognized sec tion and content) Team Status: Active Member Role Status Dates Edwin Mohan DO Primary Care Provider Active Team Status: Inactive Member Role Status Dates Edwin Mohan DO Primary Care Provider Active Start: November 03, 2024 End: November 03, 2024 Roberto Johnson APRN Emergency Provider Active Start: November 03, 2024 End: November 03, 2024 Team Status: Inactive Member Role Status Dates Edwin Mohan DO Primary Care Provide r, Attending Provider Active Start: November 05, 2024 End: November 05, 2024 Team Status: Inactive Member Role Status Dates Edwin Mohan DO Primary Care Provider Active Start: November 06, 2024 End: November 06, 2024 Wilfred Orozco DO Attending Provider Active St art: November 06, 2024 End: November 06, 2024 Team Status: Inactive Member Role Status Dates Edwin Mohan DO Primary Care Provider Active Start: December 11, 2024 End: December 11, 2024 Wilfred Orozco DO Attending Provider Active St art: December 11, 2024 End: December 11, 2024 Team Status: Inactive Member Role Status Dates Edwin Mohan DO Primary Care Provide r, Attending Provider Active Start: January 28, 2025 End: January 28, 2025 Kylee Moon [facility] Manager Distribution Center Active St art: January 28, 2025 End: January 28, 2025 Team Status: Active Member Role Status Dates Edwin Mohan DO Primary Care Provide r, Attending Provider Active Start: September 29, 2024 Team Status: Active Member Role Status Dates Edwin Mohan DO Primary Care Provider Active Start: December 11, 2024 Wilfred Orozco DO Attending Provider Active St art: December 11, 2024 Team Status: Inactive Member Role Status Dates Edwin Mohan DO Primary Care Provider, Attending Pr ovider Active Team Status: Inactive Member Role Status Dates Edwin Mohan DO Primary Care Provide r, Attending Provider Active Start: August 13, 2024 End: August 13, 2024 Team Status: Active Member Role Status Dates Edwin Mohan DO Primary Care Provider Active Start: November 06, 2024 Wilfred Orozco DO Attending Provider Active St art: November 06, 2024 Team Status: Inactive Member Role Status Dates Edwin Mohan DO Primary Care Provider Active Start: January 28, 2025 End: January 28, 2025 Edwin Mohan DO Attending Provider Active Sta rt: January 28, 2025 End: January 28, 2025 Kylee Moon [facility] Distribution Center Active St art: January 28, 2025 End: January 28, 2025 Team Status: Inactive Member Role Status Dates Edwin Mohan DO Primary Care Provider Active Start: February 05, 2025 End: February 05, 2025 Wilfred Orozco DO Attending Provider Active St art: February 05, 2025 End: February 05, 2025 Team Status: Inactive Member Role Status Dates Edwin Mohan DO Primary Care Provider Active Start: February 07, 2025 End: February 07, 2025 Edwin Mohan DO Attending Provider Active Sta rt: February 07, 2025 End: February 07, 2025 Team Status: Inactive Member Role Status Dates Edwin Mohan DO Primary Care Provider Active Start: February 28, 2025 End: February 28, 2025 Edwin Mohan DO Attending Provider Active Sta rt: February 28, 2025 End: February 28, 2025 Goals (unrecognized section and content) Goals may [...] BE BASED ON THE PRIMARY CLINICAL RECORDS. [facility]. provides no warranty or guarantee of the accuracy or completeness of information in this document.
[2025-04-05 09:21] LABS: Hematocrit 42.6 % (36.0-48.0); Hemoglobin 13.7 g/dL (12.0-16.0); Immature Granulocytes Abs Auto 0.01 10^3/uL (0.00-0.03); Immature Granulocytes Pct Auto 0.1 % (0.0-0.5); Lymphocytes Absolute Auto 2.1 10^3/uL (1.2-3.8); Mean Corpuscular HGB Conc 32.2 g/dL (29.9-35.2); Mean Corpuscular Hemoglobin 29.8 pg (26.7-34.0); Mean Corpuscular Volume 92.8 fL (81.0-99.0); Platelet Count 341 10^3/uL (150-450); Red Blood Count 4.59 10^6/uL (4.20-5.40); White Blood Count 7.3 10^3/uL (4.0-11.0)
[2025-04-05 09:29] LABS: Alanine Aminotransferase 25 U/L (14-59); Albumin Globulin Ratio 0.8; Albumin Level 3.6 g/dL (3.4-5.0); Alkaline Phosphatase 116 U/L (46-116); Anion Gap 11.8; Aspartate Amino Transferase 22 U/L (15-37); Blood Urea Nitrogen 16.0 mg/dL (7.0-18.0); Calcium 9.5 mg/dL (8.5-10.1); Carbon Dioxide 26.6 mmol/L (21.0-32.0); Chloride 106 mmol/L (98-107); Cholesterol 118 mg/dL (<=200); Estimated GFR (African America >60 (>=60 mL/min/1.73m^2); Estimated GFR (Non-African Ame >60 (>=60 mL/min/1.73m^2); Globulin 4.3 g/dL; Glucose 109 mg/dL (74-106); HDL Cholesterol 49 mg/dL (40-60); Potassium 4.4 mmol/L (3.5-5.1); Sodium 140 mmol/L (136-145); Total Protein 7.9 g/dL (6.4-8.2); Triglycerides 66 mg/dL (<=150); VLDL CHOLESTEROL 13.2 mg/dL
--- NOTE | 2025-04-05 10:00 | CA_ITS ---
Patient Name: MARIA ELENA ALLEN MR#: [id number] : 1945 Exam Date: 04/05/2025 Ordering Doctor: DR ANTOINE IZQUIERDO D.O. ECHOCARDIOGRAM REPORT PROCEDURE: CA ECHO DOPPLER COMPLETE INDICATIONS: Dyspnea, heart murmur, hypertension COMPARISON: None. DESCRIPTION: COMPLETE ECHOCARDIOGRAM Real-time transthoracic echocardiography with 2D, M-mode, spectral and color flow Doppler performed. QUALITY: Technical quality was good. LEFT VENTRICLE: Normal chamber size. Thickened septal wall. Normal systolic function. Estimated left ventricular ejection fraction is 65 %. LV EF: Normal left ventricular ejection fraction, (>55%). DIASTOLIC: Diastolic function is indeterminate. ATRIAL SEPTUM: Visually appears intact. LEFT ATRIUM: Moderate dilatation. RIGHT ATRIUM: Normal chamber size. RIGHT VENTRICLE: Mild dilatation. Normal right ventricular systolic function. TRICUSPID VALVE: Normal mobility and thickness. No stenosis with mild regurgitation. Doppler studies reveal severely (>60) elevated right sided pressures. RVSP 64 mmHg MITRAL VALVE: Normal mobility and thickness. No evidence of mitral valve stenosis. There is no mitral annular calcification. No mitral regurgitation. AORTIC VALVE: Normal trileaflet appearance. Mildly calcified aortic valve. Normal leaflet mobility. No evidence of aortic valve stenosis. No aortic regurgitation. AORTIC ROOT: Normal diameter and appearance, measuring 3.1 cm. Ascending aorta is normal in size, measuring 3.2 cm. PULMONIC VALVE: Normal thickness and mobility. No stenosis. Mild regurgitation. PERICARDIUM: No evidence of pericardial effusion. IVC: Collapses with inspiration. IVC is dilated. PLEURA: CONCLUSION: 1. Normal left ventricular size and systolic function. Estimated LVEF is 65%. 2. Mildly dilated right ventricle with normal systolic function. 3. Moderate left atrial dilatation. 4. Mildly calcified aortic valve without stenosis or regurgitation. 5. Mild tricuspid and pulmonic regurgitation. 6. Severely elevated right-sided pressures. RVSP is 64 mmHg. Adult Echocardiography Procedure Report Left Ventricle LVEDD (3.7 - 5.6 cm): 4.13 cm LVESD (2.2 - 4.0 cm): 2.60 cm LVIVS thickness (0.6 - 1.2 cm): 1.36 cm LVPW thickness (0.5 - 1.0 cm): 0.96 cm e': 0.10 m/s E - e': 9.44 LVOT Max Gradient: 4.28 mm[Hg] LVOT Area (cm2): 1.03 m/s Peak Velocity (LVOT): 1.03 m/s Mean Velocity (LVOT): 0.70 m/s LVOT Diameter 2.10 cm Left Ventricular Ejection Fraction: 65 % Left Atrium LA Volume Index (2D A2C): 36.35 ml/m2 Left Atrium Systolic Dimension: 4.19 cm Mitral Valve MV E to A Ratio: 0.89 Mitral Valve A-Wave Peak Velocity: 1.01 m/s Mitral Valve E-Wave Peak Velocity: 0.90 m/s Right Ventricle Aorta AO Root Diam: 3.15 cm Ascending Ao Diam: 3.23 cm Aortic Valve AoV Area (Peak Joey): 2.91 cm2, 2.91 cm2 AoV Area (VTI): 2.86 cm2, 2.86 cm2 Peak Velocity(Antegrade Flow): 1.23 m/s Peak Gradient(Antegrade Flow): 6.04 mm[Hg] Mean Velocity(Antegrade Flow): 0.79 m/s Mean Gradient(Antegrade Flow): 2.89 mm[Hg] Velocity Time Integral: 33.57 cm Tricuspid Valve Peak Velocity (Regurgitant Flow): 3.76 m/s Pulmonic Valve Peak Gradient: 2.77 mm[Hg], 3.32 mm[Hg] Right Atrium Right Atrium Systolic Pressure: 54.94 ml, 54.94 ml Dictated by: Brijesh Hayden M.D. on 04/05/2025 at 22:15 Approved by: Brijesh Hayden M.D. on 04/05/2025 at 22:20
== END 2025-04-05 08:45 | disposition home or self-care (01) ==
PROVIDERS: PCP Internal Medicine; Visit Provider Internal Medicine
DX: R06.00 Dyspnea, unspecified (principal); R01.1 Cardiac murmur, unspecified; R94.2 Abnormal results of pulmonary function studies; J84.9 Interstitial pulmonary disease, unspecified; E11.65 Type 2 diabetes mellitus with hyperglycemia; E78.00 Pure hypercholesterolemia, unspecified; I25.10 Atherosclerotic heart disease of native coronary artery without angina pectoris; I10 Essential (primary) hypertension
CPT/HCPCS: 36415; 80053; 80061; 82043; 82570; 83036; 85025; 93306; 94618

== ENCOUNTER 2025-04-23 14:32 | Outpatient (OUT) | payer MEDICARE, SELFPAY ==
--- NOTE | 2025-04-23 14:43 | XR_ITS ---
The [place] [id number] Patient Name: MARIA ELENA ALLEN MRN: [id number] date: 1945 Sex: F Assigned Patient Location: [facility] Current Patient Location: [facility] Accession/Order Number: [id number] Exam Date: 04/23/2025 15:15 Report Date: 04/23/2025 15:56 At the request of: ANTOINE IZQUIERDO DO Procedure: XR humerus LT LEFT HUMERUS - 2 views CLINICAL HISTORY: Fall last night. Left shoulder pain. COMPARISON: None FINDINGS: Suboptimal study due to body habitus and gross demineralization. No focal soft tissue abnormality. No acute bony process is seen. Severe degenerative changes involving the left glenohumeral joint with calcified loose body noted. Elbow joint appears grossly intact. XR/XR humerus LT IMPRESSION: SUBOPTIMAL STUDY. NO DEFINITIVE ACUTE BONY PROCESS IS SEEN. Impression dictated by: Chencho Hernandez Jr., DJosefina 04/23/2025 3:56 PM Dictation Location: [place] [address] Electronically authenticated by: [id number] Y Date: 04/23/2025 15:56
--- NOTE | 2025-04-23 14:43 | XR_ITS ---
The [place] [id number] Patient Name: MARIA ELENA ALLEN MRN: [id number] date: 1945 Sex: F Assigned Patient Location: [facility] Current Patient Location: [facility] Accession/Order Number: [id number] Exam Date: 04/23/2025 15:15 Report Date: 04/23/2025 15:55 At the request of: ANTOINE IZQUIERDO DO Procedure: XR knee LT 4V LEFT KNEE - 4 views CLINICAL HISTORY: Left Knee Pain COMPARISON: None FINDINGS: Moderate joint effusion. Moderate degenerative changes with medial weightbearing joint space narrowing. No acute bony process. XR/XR knee LT 4V IMPRESSION: MODERATE DEGENERATIVE CHANGES INVOLVING THE LEFT KNEE WITHOUT ACUTE BONY PROCESS. Impression dictated by: Chencho Hernandez Jr., D.O. 04/23/2025 3:55 PM Dictation Location: [place] [address] Electronically authenticated by: [id number] Y Date: 04/23/2025 15:55
== END 2025-04-23 14:33 | disposition home or self-care (01) ==
LOC: RAD 14:34
PROVIDERS: PCP Internal Medicine; Visit Provider Internal Medicine
DX: M25.512 Pain in left shoulder (principal); M25.562 Pain in left knee; M17.12 Unilateral primary osteoarthritis, left knee
CPT/HCPCS: 73060; 73564

== ENCOUNTER 2025-05-02 14:10 | Outpatient (OUT) | payer MEDICARE, SELFPAY ==
--- NOTE | 2025-05-02 14:14 | XR_ITS ---
The [address] [address] Patient Name: MARIA ELENA ALLEN MRN: [id number] date: 1945 Sex: F Assigned Patient Location: [facility] Current Patient Location: [facility] Accession/Order Number: [id number] Exam Date: 05/02/2025 14:28 Report Date: 05/02/2025 15:04 At the request of: ANTOINE IZQUIERDO DO Procedure: XR lumbar spine 2-3V LUMBAR SPINE - 2 views CLINICAL HISTORY: Fall. Low back pain. COMPARISON: Lumbar spine 06/15/2023 FINDINGS: Bones are grossly demineralized. Mild vertebral body height loss of L1 with underlying sclerosis suggesting a chronic process. This is new compared to the prior study from 2022. Disc space heights appear maintained. Endplate and facet joint degenerative changes are noted. SI joints also demonstrate degenerative change. XR/XR lumbar spine 2-3V IMPRESSION: MILD VERTEBRAL BODY HEIGHT LOSS OF L1 WITH UNDERLYING SCLEROSIS SUGGESTING A CHRONIC PROCESS. FINDING IS NEW SINCE 2022. Impression dictated by: Chencho Hernandez Jr., D.O. 05/02/2025 3:04 PM Dictation Location: [place] [address] Electronically authenticated by: [id number] Y Date: 05/02/2025 15:04
--- OUTSIDE RECORDS SUMMARY | 2025-05-02 14:56 | XMS_ITS | CCD ---
Author Organization [facility] CliniSyut Care Team Providers Care [employer] Radar Operator Name Role Phone Edwin Mohan Unavailable MARQUES, [...] Unavailable DO Edwin Mohan Primary Care Provider [phone] DO Edwin Mohan Attending Provider Ailin CHO, Raphael Luna Attending Unavailable Ailin CHO, Raphael Luna Attending Unavailable Ailin CHO, Anddaisy Luna Attending Unavailable ANGEL CAMPOS Attending Unavailable ANGEL CAMPOS Attending Unavailable ANGEL CAMPOS Attending Unavailable YANY MARTINEZ Attending Unavailable EDWIN MOHAN Primary Care Physician [phone] Kari Pepper Attending Unavailable Kari ePpper Admitting Unavailable Kari Pepper Attending Unavailable Edwin Mohan DO Primary Care Provider Roberto Johnson APRN Emergency Provider [phone] Wilfred Orozco DO Attending Provider [phone] Edwin Mohan DO Primary Care Provider [phone] Wilfred Orozco DO Attending Provider [phone] Edwin Mohan DO Attending Provider [phone] Edwin Mohan Primary Care Unavailable Wilfred Orozco Admitting Unavailable Wilfred Orozco Attending Unavailable Wilfred Orozco Attending Unavailable Edwin Mohan Primary Care Unavailable Wilfred Orozco Admitting Unavailable Wilfred Orozco Attending Unavailable Edwin Mohan Primary Care Unavailable Wilfred Orozco Admitting Unavailable Edwin Mohan Primary Care Unavailable Roberto Johnson Admitting Unavailable Roberto Johnson Attending Unavailable Genevieve Jernigan Attending Unavailable Genevieve Jernigan Admitting Unavailable Galea, Lacey Oscar Attending Unavailable Galrenato, Lacey J Admitting Unavailable Genevieve Jernigan Attending Unavailable Genevieve Jernigan Attending Unavailable Galea, Lacey Oscar Attending Unavailable Galea, Lacey J Admitting Unavailable Galrenato, Lacey Oscar Attending Unavailable Kari Pepper Referring Unavailable Kari Pepper Attending Unavailable Genevieve Jernigan Attending Unavailable Edwin Mohan DO Primary Care Provider [phone] Wilfred Orozco DO Attending Provider Kari Pepper Attending Unavailable Genevieve Jernigan Attending Unavailable Genevieve Jernigan Admitting Unavailable Allergies Allergy Classification Reported Allergen(s) Allergy Type Date of Onset Reaction(s) Facility (7 sources) Cefaclor; Translations: [Ceclor] Drug Allergy Unknown [facility] Repository (20 sources) Ciprofloxacin; Translations: [ciprofloxacin] Drug Allergy 11-04-19 Weal (disorder) [facility] (5 sources) Ciprofloxacin; Translations: [Cipro] Drug Allergy [facility] Repository (1 source) Robafen DM Cough-Chest Congest Drug allergy (disorder) [facility] Repository (20 sources) Ceclor *CEPHALOSPORINS* Propensity to adverse reactions Unknown [facility] Other (10 sources) Cephalosporins (Antibiotic); Translations: [Cephalosporins] Allergy to substance 11-04-19 Unknown Reaction [facility] (9 sources) Cefaclor; Translations: [cefaclor] Drug Allergy Weal (disorder) [facility] (1 source) Ciprofloxacin Drug Allergy 01-29-20 [facility] Repository Medications Current Medications Medication Drug Class(es) Dates Sig (Normalized) Sig (Original) albuterol HFA 90 mcg/inh MDI (6 sources) Start: 04-20-2023 albuterol HFA 90 mcg/inh MDI Refill(s) 0, Respiratory (Inhalation), 0 Refill(s) Start Date: 04/20/23 Status: Ordered Repeat number: 1 Start: 04-20-2023 albuterol HFA 90 mcg/inh MDI Refill(s) 0, Respiratory (Inhalation), 0 Refill(s) Start Date: 04/20/23 Status: Ordered Anoro Ellipta 62.5 mcg-25 mc g inhalation powder (6 sources) Start: 05-30-2024 Start: 05-30-2024 aspirin 81 mg oral capsule (6 sources) Platelet Aggregation Inhibitor, Nonsteroidal Anti-inflammatory Drug Start: 05-30-2024 take 1 mg by mouth every twenty-four hours aspirin 81 mg oral capsule mg cap(s), Oral, q24hr, Refills(s) 0 Start Date: 05/30/24 Status: Ordered Repeat number: 1 atorvastatin 20 mg oral tablet (20 sources) HMG-CoA Reductase Inhibitor Start: 08-16-2024 take 1 tablet by mouth once daily in the evening Atorvastatin 20 mg tablet Active 0 .ROUTE .COMPLEX August 16, 2024 7:22pm TAKE 1 TABLET BY MOUTH EVERY EVENING Complies with drug therapy Start: 09-20-2022 End: 08-16-2024 atorvastatin 20 mg [...] take 0.5 tablet by mouth once daily Bisoprolol Fumarate 5 mg tablet Active 0 .ROUTE .COMPLEX September 17, 2024 3:32pm TAKE 1/2 TABLET BY MOUTH ONCE A DAY Complies with drug therapy Start: 08-13-2024 End: 09-09-2024 take 2.5 mg by mouth once daily Bisoprolol Fumarate 5 mg tablet Discontinued 2.5 MG PO Daily August 13, 2024 1:00am September 09, 2024 10:16am Blood-Glucose Meter (Accu-Chek Guide Glucose Meter) misc (9 sources) Start: 12-22-2023 Blood-Glucose Meter (Accu-Chek Guide Glucose Meter) misc Active 0 .Route December 22, 2023 12:00am Use to test home BS qd escitalopram 10 mg oral tablet (20 sources) Serotonin Reuptake Inhibitor Start: 07-26-2024 End: 01-10-2025 take 1 tablet by mouth once daily Escitalopram Oxalate 10 mg tablet Active 0 .ROUTE .COMPLEX January 10, 2025 7:36am TAKE 1 TABLET BY MOUTH EVERY DAY Complies with drug therapy Start: 02-02-2024 End: 07-26-2024 escitalopram 10 mg Tab 90 EA , 0 Refill(s), TAKE 1 TABLET BY MOUTH EVERY DAY, Refills(s) 0 Start Date: 05/30/24 Status: Ordered Repeat number: 1 take 1 tablet by yovany once daily at bedtime Escitalopram Oxalate 10 MG TAKE 1 TABLET BY MOUTH EVERYDAY AT BEDTIME for 90 Not-Taking/PRN estradiol 0.1 mg/ml vaginal cream (6 sources) Estrogen Start: 05-30-2024 Estrace 0.1 mg /g Cream See Instructions, 42.5 gm, Refill(s) 1, Apply a pea-sized amount to the vagina/urethra 3x/week for a month, then 2x/week for maintenance, [facility]/pharmacy #[id number], 155, cm, 05/30/24 8:50:00 EDT, Height/Length Dosing, 81, kg, 05/30/24 8:50:00 EDT, Weight Dosing Start Date: 05/30/24 Status: Ordered Quantity: 42.5 Unit: g Repeat number: 2 loratadine 10 mg oral tablet (20 sources) Start: 10-31-2023 take 1 tablet by mouth once daily Loratadine 10 mg tablet Active 10 MG PO Daily October 31, 2023 12:00am Complies with drug therapy take 1 capsule by mo [facility] every twenty-four hours Loratadine 10 MG 1 capsule Orally Once a day Active 24 hr mirabegron 50 mg extended release oral tablet (2 sources) beta3-Adrenergic Agonist Start: 05-30-2024 take 1 tablet by mouth once daily mirabegron 50 mg oral tablet, extended release 50 mg = 1 tab(s), Oral, Daily, # 30 tab(s), Refills(s) 11, Pharmacy: [facility]/pharmacy #[id number], 155, cm, 05/30/24 8:50:00 EDT, Height/Length Dosing, 81, kg, 05/30/24 8:50:00 EDT, Weight Dosing Start Date: 05/30/24 Status: Ordered omeprazole 40 mg delayed release oral capsule (20 sources) Proton Pump Inhibitor Start: 08-14-2024 take 1 capsule by mouth once daily in the morning Omeprazole 40 mg capsule,delayed release(DR/EC) Active 0 .ROUTE .COMPLEX August 14, 2024 7:59am TAKE 1 CAPSULE BY MOUTH EVERY MORNING ON EMPTY STOMACH FOLLOWED IN 30 MINUTES BY BREAKFAST 90 Complies with drug therapy Start: 05-30-2024 omeprazole 40 mg Cap-DR 90 [...] chloride 20 meq extended release oral tablet (12 sources) Start: 04-20-2024 End: 03-14-2025 take 1 tablet by mouth once daily Potassium Chloride 20 mEq tablet,ER particles/crystals Active 0 .ROUTE .COMPLEX March 14, 2025 4:09pm TAKE 1 TABLET BY MOUTH EVERY DAY FOR 30 DAYS Complies with drug therapy Start: 12-28-2023 End: 04-20-2024 Potassium Chloride (Klor-Con [...] mouth once daily in the evening Rosuvastatin 5 mg tablet Active 5 MG PO Every evening October 31, 2023 12:00am Complies with drug therapy take 1 tablet by yovany th once [...] Daily, # 30 tab(s), Refills(s) 6, Pharmacy: [facility]/pharmacy #[id number], 155, cm, 05/30/24 8:50:00 EDT, Height/Length Dosing, 81, kg, 05/30/24 8:50:00 EDT, Weight Dosing Start Date: 05/30/24 Status: Ordered valACYclovir 1000 mg oral tablet (9 sources) Herpesvirus Nucleoside Analog DNA Polymerase Inhibitor, Herpes Simplex Virus Nucleoside Analog DNA Polymerase Inhibitor, Herpes Zoster Virus Nucleoside Analog DNA Polymerase Inhibitor Start: 01-09-2024 Valacyclovir 1 gram tablet Active 1000 MG PO Three times daily 11 03January 09, 2024 12:00am Complies with drug therapy vibegron 75 MG Oral Tablet [Gemtesa] (2 sources) Start: 05-30-2024 take 1 tablet by mouth once daily Gemtesa 75 mg oral tablet 75 mg = 1 tab(s), Oral, Daily, # 30 tab(s), Refills(s) 11, Pharmacy: [facility]/pharmacy #[id number], 155, cm, 05/30/24 8:50:00 EDT, Height/Length Dosing, 81, kg, 05/30/24 8:50:00 EDT, Weight Dosing Start Date: 05/30/24 Status: Ordered Completed/Discontinued Medications Medication Drug Class(es) Dates Sig (Normalized) Sig (Original) acetaminophen 325 mg / oxyCODONE hydrochloride 5 mg oral tablet (9 sources) Opioid Agonist Start: 11-03-2024 End: 11-09-2024 take 1 tablet by mouth every eight hours as needed for pain Oxycodone-Acetamin ophen (Percocet) 5-325 mg tablet Discontinued 1 TAB PO Every 8 hours as needed for pain 10 November 03, 2024 November 09, 2024 4:30pm [id number] 200 actuat albuterol 0.09 mg/actuat metered dose inhaler (20 sources) beta2-Adrenergic Agonist Start: 10-31-2023 End: 08-13-2024 take 1 puff(s) by inhalation every four hours as needed for wheezing Albuterol Sulfate 90 mcg/actuation HFA aerosol inhaler Discontinued 2 PUFF INHALATION Every 4 hours as needed for shortness of breath or wheezing 8.5 January 09, 2024 10:26am August 13, 2024 [...] 25 Active amoxicillin 875 mg oral tablet (9 sources) Penicillin-class Antibacterial Start: 07-30-2024 End: 11-05-2024 take 1 tablet by mouth twice daily Amoxicillin 875 mg tablet Discontinued 875 MG PO Twice daily 14 July 30, 2024 1:00am November 05, 2024 2:09pm amoxicillin 875 mg / clavulanate 125 mg oral tablet (20 sources) Penicillin-class Antibacterial Start: 02-07-2025 End: 04-23-2025 take 1 tablet by mouth every twelve hours Amoxicillin-Pot Clavulanate 875-125 mg tablet Discontinued 1 TAB PO Every 12 hours 14 March 01, 2025 12:00am April 23, 2025 1:41pm Start: 10-31-2023 End: 01-02-2024 take 1 tablet by mouth every twelve hours Amoxicillin-Pot Clavulanate 875-125 mg tablet Discontinued 1 TAB PO Every 12 hours 14 November 08, 2023 2:40pm November 17, 2023 9:36am Start: 11-01-2022 take 1 tablet by yovany th every twelve hours Amoxicillin-Pot Clavulanate 875-125 MG 1 tablet Orally every 12 hrs w/ food for 5 days Oct, Not-Taking/PRN atenolol 25 mg oral tablet (20 sources) beta-Adrenergic Dwayne Start: 08-13-2024 End: 08-13-2024 Atenolol 25 mg tablet Discontinued 12.5 MG PO Daily 45 August 13, 2024 11:40am August 13, 2024 11:49am Start: 08-07-2024 End: 08-13-2024 take 1 tablet by mouth once daily Atenolol 25 mg tablet Discontinued 25 MG PO Daily August 07, 2024 6:29pm August 13, 2024 [...] Jul, Active take 1 tablet by yovany th once daily Atenolol 25 MG TAKE 1 TABLET BY MOUTH EVERY DAY for 90 Active benzonatate 200 mg oral capsule (20 sources) Non-narcotic Antitussive Start: 10-31-2023 End: 11-05-2024 take 1 capsule by mouth three times daily Benzonatate 200 mg capsule Discontinued 200 MG PO Three times daily October 31, 2023 12:00am November 05, 2024 2:09pm Start: 11-01-2022 take 1 capsule by mo ohh every eight hours Benzonatate 200 MG 1 capsule Orally Three times a day for 10 Oct, Active Blood-Glucose Meter (Onetouc h Verio Flex Meter) misc (9 sources) Start: 12-21-2023 End: 12-22-2023 Blood-Glucose Meter (Onetouc h Verio Flex Meter) misc Discontinued 0 .Route 1 December 21, 2023 12:00am December 22, 2023 4:18pm As directed cycloSPORINE Opth 0.05% Emul (6 sources) Start: 05-30-2024 cycloSPORINE O pth 0.05% Emul drop(s), q12hr, Refill(s) 0 Start Date: 05/30/24 Status: Ordered Repeat number: 1 Start: 05-30-2024 cycloSPORINE O pth 0.05% Emul drop(s), q12hr, Refill(s) 0 Start Date: 05/30/24 Status: Ordered doxycycline hyclate 100 mg oral capsule (9 sources) Tetracycline-class Drug Start: 07-30-2024 End: 07-30-2024 take 1 capsule by mouth twice daily Doxycycline Hyclate 100 mg capsule Discontinued 100 MG PO Twice daily July 30, 2024 1:00am July 30, 2024 6:07pm fluconazole 150 mg oral tablet (13 sources) Azole Antifungal Start: 04-10-2025 Diflucan 150 mg Tab 300 mg = 2 tab(s), Oral, Once, Take 1 tab by mouth. May repeat dose in 72 hours if symptoms persist., # 2 tab(s), Refills(s) 0, Pharmacy: [facility]/pharmacy #[id number], 155, cm, 04/10/25 8:57:00 EDT, Height/Length Dosing, 80.9, kg, 04/10/25 8:57:00 EDT, Weight Dosing Start Date: 04/10/25 Status: Ordered Quantity: 2.0 Unit: tab(s) Repeat number: 1 Indications: Other specified noninflammatory disorders of vagina; Start: 03-12-2025 fluconazole 15 0 mg Tab 150 mg = 1 tab(s), Oral, Once, If symptoms persist after 72 hours, may repeat dose. If symptoms persist after another 72 hours, may repeat 3rd and final dose., # 1 tab(s), Refills(s) 2, [id number], cm, 03/12/25 11:55:00 EDT, Height/Length Dosing, 81.2, kg, 03/12/25 11:55:00 EDT, Weight Dosing Start Date: 03/12/25 Status: Ordered Quantity: 1.0 Unit: tab(s) Repeat number: 3 Indications: Gross hematuria; Start: 11-08-2023 End: 01-02-2024 take 1 tablet by mouth once daily Fluconazole 150 mg tablet Discontinued 150 MG PO Daily 2 November 08, 2023 12:00am January 02, 2024 9:58am Fluticasone Propion-Salmeterol (20 sources) Corticosteroid, beta2-Adrenergic Agonist Start: 10-31-2023 End: [...] 1 tablet by yovany th once daily Hydrochlorothiazide 25 mg tablet Active 0 .ROUTE .COMPLEX May 20, 2024 5:55pm TAKE 1 TABLET BY MOUTH EVERY DAY Complies with drug therapy Start: 10-31-2023 End: 05-20-2024 take 1 tablet [...] tablet by yovany th once daily Losartan 100 mg tablet Active 0 .ROUTE .COMPLEX May 20, 2024 5:55pm TAKE 1 TABLET BY MOUTH EVERY DAY Complies with drug therapy Start: 10-31-2023 End: 05-20-2024 take 1 tablet by mouth once daily Losartan 100 mg tablet Discontinued 100 MG PO Daily October 31, 2023 12:00am May 20, 2024 5:55pm take 1 tablet by yovany th once daily Losartan Potassium 100 MG TAKE 1 TABLET BY MOUTH EVERY DAY for 90 Active nitrofurantoin, macrocrystals 25 mg / nitrofurantoin, monohydrate 75 mg oral capsule (10 sources) Nitrofuran Antibacterial Start: 02-28-2025 End: 03-01-2025 take 1 capsule by mouth every twelve hours at mealtime Nitrofurantoin Monohyd/M-Cryst 100 mg capsule Discontinued 100 MG PO Every 12 hours 05 26February 28, 2025 12:00am March 01, 2025 11:16am must administer with a meal/food Start: 04-20-2024 End: 07-30-2024 take 1 capsule by mouth twice daily at mealtime Nitrofurantoin Monohyd/M-Cryst (Macrobid) 100 mg capsule Discontinued 100 MG PO Twice daily 10 April 20, 2024 12:00am July 30, 2024 5:55pm [...] 2024 10:19am take 1 tablet by yovany every twenty-four hours oxyBUTYnin Chloride ER 10 MG 1 tablet Orally Once a day Active sulfamethoxazole 800 mg / trimethoprim 160 mg oral tablet (9 sources) Dihydrofolate Reductase Inhibitor Antibacterial, Sulfonamide Antimicrobial Start: 12-09-2023 End: 01-02-2024 take 1 tablet by mouth twice daily Sulfamethoxazole-Trimethoprim 800-160 mg tablet Discontinued 1 TAB PO Twice daily 10 December 09, 2023 12:00am January 02, 2024 [...] 02, 2024 10:19am take 1 capsule by mo uth every twenty-four hours Tolterodine Tartrate ER 2 [...] Active Problems Problem Classification Problem Date Documented Date Episodic/Chronic Anxiety disorders (2 sources) Generalized anxiety disorder; Translations: [Generalized anxiety disorder] Chronic Bacterial infection; unspecified site (2 sources) Infection due to ESBL bacteria Onset: 03-13-2025 03-22-2025 Episodic Comment on above: ESBL E coli in urine 03/12/2025 ESBL E coli in urine Cardiac dysrhythmias (13 sources) Bradycardia; Translations: [Bradycardia, unspecified] 08-13-2024 Episodic Chronic obstructive pulmonary disease and bronchiectasis (20 sources) Simple chronic bronchitis; Translations: [Simple chronic bronchitis] Chronic Conditions associated with dizziness or vertigo (2 sources) Orthostatic hypotension; Translations: [Dizziness and giddiness] 04-23-2025 Episodic Coronary atherosclerosis and other heart disease (20 sources) Coronary arteriosclerosis; Translations: [Atherosclerotic heart disease of [place] coronary artery without angina pectoris] Chronic Comment on above: Echo: LVEF 65%, LAE, dilated RV w/ normal function, RVSP 64 - 03/2025 Diabetes mellitus with complications (20 sources) Type 2 diabetes mellitus; Translations: [Type 2 diabetes mellitus with hyperglycemia] Onset: 03-27-2022 Chronic Disorders of lipid metabolism (20 sources) Pure hypercholesterolemia; Translations: [Pure hypercholesterolemia, unspecified] Onset: 03-29-2022 Chronic Diverticulosis and diverticulitis (15 sources) Diverticulitis of colon; Translations: [Diverticulitis of [...] 11-03-2024 Episodic Genitourinary symptoms and ill-defined conditions (12 sources) Incontinence; Translations: [Mixed incontinence] Onset: 05-30-2024 05-30-2024 Chronic Genitourinary symptoms and ill-defined conditions (20 sources) Oliguria and anuria; Translations: [Anuria and oliguria] Onset: 2016 05-30-2024 Episodic Immunizations and screening for infectious disease (2 sources) Vaccination given; Translations: [Encounter for immunization] Episodic Menopausal disorders (10 sources) Primary ovarian failure; Translations: [Other primary [...] current use of drug therapy; Translations: [Other fpc (current) drug therapy] Episodic Other diseases of [...] ear; Translations: [Impacted cerumen] 08-13-2024 Episodic Other female genital disorders (1 source) Noninflammatory disorder of the vagina; Translations: [Other specified noninflammatory disorders of vagina] Onset: 04-10-2025 Episodic Other inflammatory condition of skin (2 sources) Pruritus of vagina 04-10-2025 Episodic Other injuries and conditions due to external causes (2 sources) History of fall; Translations: [History of falling] Episodic Other lower respiratory disease (9 sources) Interstitial lung disease; Translations: [Interstitial pulmonary [...] elsewhere classified] Episodic Other lower respiratory disease (11 sources) Restrictive lung disease; Translations: [Other disorders of lung] 10-31-2023 Episodic Other lower respiratory disease (1 source) Hypoxemia; Translations: [Hypoxemia] 04-22-2025 Episodic Other non-traumatic joint disorders (20 sources) Arthralgia of the lower leg; Translations: [Pain in left knee] Episodic Other non-traumatic joint disorders (3 sources) Pain in left knee; Translations: [Left knee pain] Episodic Other non-traumatic joint disorders (2 sources) Pain in left shoulder; Translations: [Left shoulder pain] 04-23-2025 Episodic Other nutritional; endocrine; and metabolic disorders [...] conditions (not mental disorders or infectious disease) (19 sources) Encounter for screening mammogram for malignant [...] Translations: [Nicotine dependence, cigarettes, in remission] Chronic Superficial injury; contusion (4 sources) Contusion of left knee; Translations: [Contusion of left knee, initial encounter] 04-23-2025 Episodic Viral infection (2 sources) Herpes zoster with [...] 11-10-2015 Episodic Other aftercare (2 sources) Other fpc (current) drug therapy; Translations: [OTH FLOOR FRAMER CURRENT DRUG THERAPY] Onset: 03-29-2022 Episodic Other and unspecified benign neoplasm (2 sources) 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; Translations: [Other benign neoplasm of skin of scalp and neck] Onset: 04-23-2015 Episodic Other connective tissue disease (2 sources) Spasm; Translations: [Cramp and spasm] Onset: 10-01-2015 Episodic Other diseases of kidney and ureters (10 sources) Stricture of ureter; Translations: [Crossing vessel and stricture of ureter without hydronephrosis] Onset: 11-07-2017 05-28-2024 Episodic Spondylosis; intervertebral disc disorders; other back problems (17 sources) Pain in thoracic spine; Translations: [Pain in thoracic spine] Onset: 2013 Episodic Unclassified (1 source) Acute cough R05.1 Unclassified (1 source) Acute bilateral low back pain without sciatica M54.50 Unclassified (1 source) Suspected COVID-19 virus infection Z20.822 Urinary tract infections (2 sources) Acute cystitis; Translations: [Acute cystitis without hematuria] Onset: 06-06-2018 Episodic Results Test Name Value Interpretation Reference Range Facility C Urineon 04-27-2025 Bacteria identified Cx Nom (U) Microbiology PROCEDURE: Urine Culture [R1] SOURCE: U Random BODY SITE: COLLECTED DATE/TIME: 04/24/2025 15:32 EDT RECEIVED DATE/TIME: 04/25/2025 17:17 EDT START DATE/TIME: 04/25/2025 17:17 EDT FREE TEXT SOURCE: Genevieve Jernigan PA-C, PA-C, Genevieve FINAL REPORTS Final Report [] Verified Date/Time: 04/27/2025 07:39 EDT 60,000 cfu/ml Escherichia coli ESBL SUSCEPTIBILITY RESULTS __ LEGEND: S=Susceptible, N/R=Not Reported, Blank=Data not available, or drug not advisable or tested, I=Intermediate, ESBL=Extended spectrum beta-lactamase, R=Resistant, TFG=Thymidine-dependen t strain, BORIS=Beta-lactamase positive, BARBIE=mcg/m;(mg/L), S*=Predicted susceptible interp, R*=Predicted resistant interp ECESBL Antibiotic BARBIE Dilutn BARBIE Interp Ampicillin [...] Locations R1: This test was performed at: [facility], [address] [place] [address], [id number] [place] [address], [facility] Comment on above: Performed By: #### [id number] #### [facility] [address] [place] [address] Ambulatory Visit Summaryon 0 04-10-2025 Ambulatory Visit Summary Ambulatory Visit Summary CHELLY TILLMAN :1945 Visit Date:04/10/2025 Ambulatory Visit Instructions Your Diagnosis Mixed incontinence Gross hematuria Atrophic vaginitis Vaginal itching Your Care Team Attending Physician - Genevieve Jernigan PA-C Primary Care Physician - EDWIN MOHAN DO This Is Your Medications List albuterol (albuterol HFA 90 mcg/inh MDI) aspirin (aspirin 81 mg oral capsule) atorvastatin (atorvastatin 20 mg Tab) cycloSPORINE ophthalmic (cycloSPORINE Opth 0.05% Emul) escitalopram (escitalopram 10 mg Tab) estradiol topical (Estrace 0.1 mg/g Cream) fluconazole (Diflucan 150 mg Tab) hydrochlorothiazide (hydrochlorothiazide 25 mg Tab) losartan (losartan 100 mg Tab) omeprazole (omeprazole 40 mg Cap-DR) tramadol (traMADOL 50 mg Tab) umeclidinium-vilantero l (Anoro Ellipta 62.5 mcg-25 mcg inhalation powder) Procedures Performed Cataract, Colonoscopy, History of hysterectomy, History of tonsillectomy. Discharge Vitals Temperature (Temporal Artery) 37 ???C Heart Rate (Peripheral) 72 Respiratory Rate 16 Blood Pressure 138/78 Height 155 cm Height 61 in Weight 80.9 kg Weight 178.354 lb BMI 33.67 What to do next You Need to Schedule the Following Appointments Follow Up with Rere BENDER, SHIN Vallejo When: Comments: F/U in 6 months Where: Medications What How Much When Why Instructions New fluconazole (Diflucan 150 mg Tab) 2 Tablets By Mouth Once Vaginal itching Take 1 tab by mouth. May repeat dose in 72 hours if symptoms persist. Pickup at [facility]/pharmacy #[id number] Unchanged albuterol (albuterol HFA 90 mcg/ inh [...] Unchanged tramadol (traMADOL 50 mg Tab) Unchanged umeclidinium-vilantero l (Anoro Ellipta 62.5 mcg-25 mcg inhalation powder) 1 Unknown, Respiratory (Inhalation), 0 Refill(s) Pharmacy Information [facility]/pharmacy #[id number]: [address], [place] [phone] Allergies Cipro (Hives) cefaclor (Hives) Problems Ongoing - Any problem that you are currently receiving treatment for. Atrophic vaginitis Coronary arteriosclerosis Diverticulitis of colon ESBL (extended spectrum beta-lactamase) producing bacteria infection Essential hypertension Gross hematuria Low back pain Mixed incontinence Stricture of ureter Type 2 diabetes mellitus Vaginal itching Patient Survey You may receive a survey via text or e-mail asking about your office visit. Please share your experience with us by completing your survey. We appreciate your feedback and thank you for choosing us for your care. Education Materials Atrophic Vaginitis Atrophic vaginitis is a condition [...] ??? You are older than age 50. (more content not included)... Normal [facility] Reminderson 04-10-2025 Reminders Reminders From: Kelly Su To: EU - Administrative; Sent: 04/10/2025 09:21:28 EDT Show up: 06/22/2025 09:21:00 EDT Subject: 6m f/u Due Date/Time: 10/11/2025 09:21:00 EST Reminder/Recall Needs scheduled with LT in 6 months with a PVR, due back 10/11/25 Normal [facility] Urology Office/Clinic Noteon 04-10-2025 Urology Office/Clinic Note Urology Office/Clinic Note Chief Complaint 3 month f/u with PVR HPI Staff 79 year old female 3 month f/u w/ PVR Previous Dx: gross hematuria, atrophic vaginitis, mixed incontinence BBS today is 21. Pt urinates every 1-2 hours. Nocturia 0-1x. Usually urinates due to severe urge. States that she must go right away when she gets the urge. Rushes to the bathroom at the least 1x daily and also wets her pad at least 1x daily. Pt feels her bladder control is poor. Pt does states that she feels she is having a yeast infection at this time. She is experiencing burning around her labia for about 2 weeks now. She has been using vaseline on her skin. Denies any visible blood and no pain in her bladder region or flank. PVR today is 44ml. History of Present Illness I have reviewed and verified the staff HPI to be accurate for this encounter. Review of Systems PHQ Score Initial Depression Screen Score: 0 SCORE no fever, chills, malaise, myalgia. no abdominal pain, nausea, vomiting. Physical Exam Vitals & Measurements T: 37 ???C(Temporal Artery) HR: 72(Peripheral) RR: 16 BP: 138/78 HT: 61 in HT: 155 cm WT: 80.9 kg WT: 178.354 lb BMI: 33.67 General: Well developed, well nourished, in no acute distress. Assessment/Plan 79 yo female patient here for 3 month f/u w/ PVR KML pt 1. Mixed incontinence (N39.46: Mixed incontinence) BBS 21 (20-23) PVR 44 ml today (0) UA today w/ trace leuks only UUI > ANTONIO Tried bladder medication many years ago but does not recall name. Thinks it may have helped but uncertain.Previously prescribed Gemtesa and Myrbetriq but cost prohibitve so did not start. Trospium later sent, but pharmacist advised patient [...] does not take fiber supplements daily. Pt shares she was unable to fill Gemtesa as it was over $400. Again, discussed starting Trospium as previously discussed. Patient wishes to discuss starting Trospium with pharmacist first to see if Trospium is safe to take with her oral potassium. She will call our office to start if she gets the okay from the pharmacist. Again, discussed cysto/Botox/SNM would be next step. She is unsure she would be interested in Botox. Discussed risk/benefits of Botox including bleeding, infection, continued problems with overactive bladder, inability to empty the bladder which could require an indwelling catheter or need for in/out catheterization to empty the bladder, and need for repeat procedures over time. Pt to call if interested in Botox. -Cont sxs monitoring -Increase water intake, avoid bladder irritants -Timed voids, double voids -Avoid constipation, cont daily fiber, add stool softeners -Pt to call office if she wishes to trial Trospium or intravesical Botox -F/U in 6 months, or sooner if needed 2. Gross hematuria (R31.0: Gross hematuria) Former [...] - 2+ leuks, 3+ blood, no culture ran. Started on Macrobid by PCP, but switched to Augmentin x 7 days. Seen 03/12/25 for gross hematuria. Denied other UTI symptoms. She was recently tx for UTI by PCP at this time, but cont to have gross hematuria despite being on antibiotics. UA showed large blood and large leuks. Urine sent for culture. UCX +ESBL E. Coli. Tx w/ doxy x 10 days. She was also tx for a suspected vaginal yeast infection at this time w/ fluconazole. Today, she denies recurrence of gross hematuria since last OV. UA today neg for blood, trace leuks only. Denies UTI symptoms today. Pt to notify our office for recurrence of gross hematuria or future UTI sxs. She may need repeat hematuria evaluation if she has recurrence of hematuria w/o infection. All questions answered. -Cont sxs monitoring -Pt to notify our office for gross hematuria 3. Atrophic vaginitis (N95.2: Postmenopausal atrophic vaginitis) Previously started on topical estrogen cream due to c/o itching/burning of labia, attributes to irritation for pads. Pt reports she is using Estrace cream 2x/weekly. -Cont estrogen cream 2x/week 4. Vaginal itching (N89.8: Other specified noninflammatory disorders of vagina) She reports vaginal itching and burning for the past week. Feel she may have a yeast infection. Will send fluconazole z 1 to cover for s (more content not included)... Normal [facility] Comment on above: Result Comment: Elec tronically Signed By: Rere BENDER, Genevieve\.br\Date and Time Signed: 04/10/25 09:43 EDT Basophils Auto (Bld) [#/Vol] Ordered By: Edwin Mohan on 04-05-2025 Basophils (Bld) [#/Vol] 0.0 10 3/uL 0.0-0.1 [facility] Basophils/100 WBC Auto (Bld) Ordered By: Edwin Mohan on 04-05-2025 Basophils/100 WBC (Bld) 0.3 % 0.2-2.0 F [facility] Cholesterol in LDL Calc [Mas s/Vol]Ordered By: Edwin Mohan on 04-05-2025 Cholesterol in LDL [Mass/Vol] 55.8 mg/dL [facility] Comment on above: <100 mg/dl [id number] 0-129 mg/dl NEAR OR ABOVE [id number] mg/dl BORDERLINE ATUG644-772 mg/dl HIGH>190 mg/dl VERY HIGH Cholesterol in VLDL Calc [Ma ss/Vol]Ordered By: Edwin Mohan on 04-05-2025 Cholesterol in VLDL [Mass/Vol] 13.2 mg/dL [facility] Eosinophils/100 WBC Auto (Bl d)Ordered By: Edwin Mohan on 04-05-2025 Eosinophils/100 WBC (Bld) 5.7 % 0.9-7.0 [facility] Erythrocyte distribution wid th Auto (RBC) [Ratio]Ordered By: Edwin Mohan on 04-05-2025 Erythrocyte distribution width (RBC) [Ratio] 14.2 % 11.0-15.0 [facility] Globulin Calc (S) [Mass/Vol] Ordered By: Edwin Mohan on 04-05-2025 Globulin (S) [Mass/Vol] 4.3 g/dL F [facility] Glomerular filtration rate ( GFR) estimation in non- AmericanOrdered By: Edwin Mohan on 04-05-2025 GFR/1.73 sq M.predicted among non-blacks MDRD (S/P/Bld) [Vol rate/Area] mL/min/{1.73_m2} >=60 mL/min/1.73m 2 [facility] Glucose mean value [Mass/vol ume] in Blood Estimated from glycated hemoglobinOrdered By: Edwin Mohan on 04-05-2025 Average glucose Estimated from glycated hemoglobin (Bld) [Mass/Vol] 120 mg/dL [facility] Hematocrit Auto (Bld) [Volum e fraction]Ordered By: Edwin Mohan on 04-05-2025 Hematocrit (Bld) [Volume fraction] 42.6 % 36.0-48.0 [facility] Hemoglobin A1c percentageOrd ered By: Edwin Mohan on 04-05-2025 HbA1c (Bld) [Mass fraction] 5.8 % 4.5-6.2 [facility] Comment on above: ADA RECOMMENDED LIMI T 4.0 - 6.0ADA THERAPEUTIC TARGET < 7.0ACTION SUGGESTED> 7.0 Hemoglobin [Mass/volume] in BloodOrdered By: Edwin Mohan on 04-05-2025 Hemoglobin (Bld) [Mass/Vol] 13.7 g/dL 12.0-16.0 [facility] Laboratory - Chemistry and C hemistry - challengeOrdered By: Edwin Mohan on 04-05-2025 Albumin [Mass/Vol] 3.6 g/dL 3.4-5.0 [facility] ALP [Catalytic activity/Vol] 116 U/L 46-116 [facility] ALT [Catalytic activity/Vol] 25 U/L 14-59 [facility] AST [Catalytic activity/Vol] 22 U/L 15-37 [facility] Bilirubin [Mass/Vol] 0.8 mg/dL 0.2-1.0 [facility] Calcium [Mass/Vol] 9.5 mg/dL 8.5-10.1 [facility] Chloride [Moles/Vol] 106 mmol/L 98-107 [facility] Cholesterol [Mass/Vol] 118 mg/dL <=200 [facility] Cholesterol in HDL [Mass/Vol] 49 mg/dL 40-60 [facility] Comment on above: > or =60 mg/dl - LOW CARDIOVASCULAR RISK<40 mg/dl - HIGH CARDIOVASCULAR RISK CO2 [Moles/Vol] 26.6 mmol/L 21.0-32.0 [facility] Creatinine [Mass/Vol] 0.56 mg/dL 0.55-1.02 [facility] GFR/1.73 sq M.predicted MDRD (S/P/Bld) [Vol rate/Area] mL/min/{1.73_m2} >=60 mL/min/1.73m 2 [facility] Glucose [Mass/Vol] 109 mg/dL High 74-106 [facility] Potassium [Moles/Vol] 4.4 mmol/L 3.5-5.1 [facility] Protein [Mass/Vol] 7.9 g/dL 6.4-8.2 [facility] Sodium [Moles/Vol] 140 mmol/L 136-145 [facility] Triglyceride [Mass/Vol] 66 mg/dL <=150 [facility] Urea nitrogen [Mass/Vol] 16.0 mg/dL 7.0-18.0 [facility] Urea nitrogen/Creatinine [Mass ratio] 28.6 mg/mg [facility] Laboratory - Hematology and Cell countsOrdered By: Edwin Mohan on 04-05-2025 Immature granulocytes/100 WBC (Bld) 0.1 % 0.0-0.5 [facility] Leukocytes [#/volume] correc rachel for nucleated erythrocytes in Blood by Automated counOrdered By: Edwin Mohan on 04-05-2025 WBC corrected for nucl RBC Auto (Bld) [#/Vol] 7.3 10 3/uL 4.0-11.0 [facility] Lymphocytes Auto (Bld) [#/Vo l]Ordered By: Edwin Mohan on 04-05-2025 Lymphocytes (Bld) [#/Vol] 2.1 10 3/uL 1.2-3.8 [facility] Lymphocytes/100 WBC Auto (Bl d)Ordered By: Edwin Mohan on 04-05-2025 Lymphocytes/100 WBC (Bld) 29.0 % 20.5-60.0 [facility] MCH Auto (RBC) [Entitic mass ]Ordered By: Edwin Mohan on 04-05-2025 MCH (RBC) [Entitic mass] 29.8 pg 26.7-34.0 [facility] MCHC Auto (RBC) [Mass/Vol]Or dered By: Edwin Mohan on 04-05-2025 MCHC (RBC) [Mass/Vol] 32.2 g/dL 29.9-35.2 [facility]ir [facility] MCV Auto (RBC) [Entitic vol] Ordered By: Edwin Mohan on 04-05-2025 MCV (RBC) [Entitic vol] 92.8 fL 81.0-99.0 F [facility] Microalbumin [Mass/volume] i n UrineOrdered By: Edwin Mohan on 04-05-2025 Albumin DL <= 20 mg/L (U) [Mass/Vol] mg/dL <=30.0 [facility] Monocytes Auto (Bld) [#/Vol] Ordered By: Edwin Mohan on 04-05-2025 Monocytes (Bld) [#/Vol] 0.5 10 3/uL 0.3-0.8 [facility] Monocytes/100 WBC Auto (Bld) Ordered By: Edwin Mohan on 04-05-2025 Monocytes/100 WBC (Bld) 6.9 % 1.7-12.0 F [facility] Neutrophils Auto (Bld) [#/Vo l]Ordered By: Edwin Mohan on 04-05-2025 Neutrophils (Bld) [#/Vol] 4.2 10 3/uL 1.4-6.5 [facility] Neutrophils/100 WBC Auto (Bl d)Ordered By: Edwin Mohan on 04-05-2025 Neutrophils/100 WBC (Bld) 58.0 % 43.0-75.0 [facility] No Panel InformationOrdered By: Edwin Mohan on 04-05-2025 Urine Random Creatinine 101.09 mg/dL 20.00-300. 00 [facility] Eosinophils # (Auto) 0.4 10 3/uL 0.0-0.7 [facility] Immature Granulocyte # (Auto) 0.01 10 3/uL 0.00-0.03 [facility] Platelet mean volume Auto (B ld) [Entitic vol]Ordered By: Edwin Mohan on 04-05-2025 Platelet mean volume (Bld) [Entitic vol] 9.9 fL 9.5-13.5 [facility] Platelets Auto (Bld) [#/Vol] Ordered By: Edwin Mohan on 04-05-2025 Platelets (Bld) [#/Vol] 341 10 3/uL 150-450 [facility] RBC Auto (Bld) [#/Vol]Ordere d By: Edwin Mohan on 04-05-2025 RBC (Bld) [#/Vol] 4.59 10 6/uL 4.20-5.40 [facility] Serum or plasma albumin/glob ulin mass ratioOrdered By: Edwin Mohan on 04-05-2025 Albumin/Globulin [Mass ratio] 0.8 {ratio} [facility] Serum or plasma anion gap de terminationOrdered By: Edwin Mohan on 04-05-2025 Anion gap [Moles/Vol] 11.8 mmol/L [facility] Serum or plasma total choles terol/high density lipoprotein (HDL) cholesterol mass ratOrdered By: Edwin Mohan on 04-05-2025 Cholesterol.total/Kasandra sterol in HDL [Mass ratio] 2.4 {ratio} [facility] Comment on above: 3.3 - 4.4 LOW RISK4. 4 - 7.1 AVERAGE RISK7.1 - 11.0 MODERATE RISK>11.0 HIGH RISK C Urineon 03-16-2025 Bacteria identified Cx Nom (U) Microbiology PROCEDURE: Urine Culture [R1] SOURCE: U CleanCatch BODY SITE: COLLECTED DATE/TIME: 03/13/2025 14:05 EDT RECEIVED DATE/TIME: 03/14/2025 17:38 EDT START DATE/TIME: 03/14/2025 17:38 EDT FREE TEXT SOURCE: Rere BENDER, Genevieve Jernigan PA-C, Genevieve FINAL REPORTS Final Report [] Verified Date/Time: 03/16/2025 10:02 EDT >100,000 cfu/ml Escherichia coli ESBL 1,000 cfu/ml Mixed skin contaminants SUSCEPTIBILITY RESULTS __ LEGEND: S=Susceptible, N/R=Not Reported, Blank=Data not available, or drug not advisable or tested, I=Intermediate, ESBL=Extended spectrum beta-lactamase, R=Resistant, TFG=Thymidine-dependen t strain, BORIS=Beta-lactamase positive, BARBIE=mcg/m;(mg/L), S*=Predicted susceptible interp, R*=Predicted resistant interp ECESBL Antibiotic BARBIE Dilutn BARBIE Interp Ampicillin [...] Locations R1: This test was performed at: [facility], [address] [place] [address], [id number] , , [facility] Comment on above: Performed By: #### 2 [id number] #### [facility] [address] [place] [id number] C Urineon 03-14-2025 Bacteria identified Cx Nom (U) Microbiology PROCEDURE: Urine Culture [R1] SOURCE: U Random BODY SITE: COLLECTED DATE/TIME: 03/12/2025 13:00 EDT RECEIVED DATE/TIME: 03/12/2025 17:27 EDT START DATE/TIME: 03/12/2025 17:27 EDT FREE TEXT SOURCE: Lacey Bustillo, Lacey Oscar FINAL REPORTS Final Report [] Verified Date/Time: 03/14/2025 12:32 EDT 50,000 cfu/ml Escherichia coli ESBL 2,000 cfu/ml Mixed skin contaminants SUSCEPTIBILITY RESULTS __ LEGEND: S=Susceptible, N/R=Not Reported, Blank=Data not available, or drug not advisable or tested, I=Intermediate, ESBL=Extended spectrum beta-lactamase, R=Resistant, TFG=Thymidine-dependen t strain, BORIS=Beta-lactamase positive, BARBIE=mcg/m;(mg/L), S*=Predicted susceptible interp, R*=Predicted resistant interp ECESBL Antibiotic BARBIE Dilutn BARBIE Interp Ampicillin [...] Locations R1: This test was performed at: [facility], [address] [place] [address], [address] [place] [address], [facility] Comment on above: Performed By: #### 2 [id number] #### [facility] [address] [place] [address] Ambulatory Visit Summaryon 0 03-13-2025 Ambulatory Visit [...] mg Cap-DR) tramadol (traMADOL 50 mg Tab) umeclidinium-vilantero l (Anoro Ellipta 62.5 mcg-25 mcg inhalation powder) Procedures Performed Cataract, Colonoscopy, History of hysterectomy, History of tonsillectomy. What to do next Scheduled Follow-Up Appointments Tuesday 8:30 AM EDT With: Genevieve Jernigan PA-C Where: [facility] [address] [place] [address]- Medications What How Much When Why Instructions [...] Unchanged tramadol (traMADOL 50 mg Tab) Unchanged umeclidinium-vilantero l (Anoro Ellipta 62.5 mcg-25 mcg inhalation powder) [...] signed up for this yet, please contact [employer] at [phone] to get signed up today. Language Information Language assistance services are available as needed. Normal [facility] Ambulatory Visit Summaryon 0 03-12-2025 Ambulatory Visit Summary Ambulatory Visit Summary CHELLY TILLMAN :1945 Visit Date:03/12/2025 Ambulatory Visit Instructions Your Diagnosis Gross hematuria Your Care Team Attending Physician - Lacey Bustillo Primary Care Physician - EDWIN MOHAN DO [...] mg Cap-DR) tramadol (traMADOL 50 mg Tab) umeclidinium-vilantero l (Anoro Ellipta 62.5 mcg-25 mcg inhalation powder) vibegron (Gemtesa 75 mg oral tablet) Procedures Performed Cataract, Colonoscopy, History of hysterectomy, History of tonsillectomy. Discharge Vitals Height 155 cm Height 61 in Weight 81.2 kg Weight 179.015 lb BMI 33.8 What to do next Scheduled Follow-Up Appointments Tuesday 8:30 AM EDT With: Genevieve Jernigan PA-C Where: [facility] [address] [address]- Medications What How Much When Why Instructions [...] Unchanged tramadol (traMADOL 50 mg Tab) Unchanged umeclidinium-vilantero l (Anoro Ellipta 62.5 mcg-25 mcg inhalation powder) [...] signed up for this yet, please contact [employer] at [phone] to get signed up today. Language Information Language assistance services are available as needed. Normal [facility] Urinalysis with Microon 02-20 Color (U) see comment Invalid Interpretation Code [facility] Comment on above: Result Comment: Mich tity of urine insufficient for urinalysis. Urine culture has been set up. Will credit urinalysis. Microscopic readings are only performed on those samples that meet specific criteria set forth by [facility]. Performed By: #### 4 [id number] #### [facility] [address] [place] [address] Ketones Ql (U) see comment Invalid Interpretation Code [facility] Comment on above: Performed By: #### 4 [id number] #### [facility] [address] [place] [address] UA Blood see comment Invalid Interpretation Code [facility] Comment on above: Performed By: #### 4 [id number] #### [facility] [address] [place] [address] UA Bili see comment Invalid Interpretation Code [facility] Comment on above: Performed By: #### 4 [id number] #### [facility] [address] [place] [address] UA Clarity see comment Invalid Interpretation Code [facility] Comment on above: Performed By: #### 4 [id number] #### [facility] [address] [place] [address] UA Glucose see comment Invalid Interpretation Code [facility] Comment on above: Performed By: #### 4 [id number] #### [facility] [address] [place] [address] UA Leuk Est see comment Invalid Interpretation Code [facility] Comment on above: Performed By: #### 4 [id number] #### [facility] [address] [place] [address] UA Nitrite see comment Invalid Interpretation Code [facility] Comment on above: Performed By: #### 4 [id number] #### [facility] [address] [place] [address] UA pH see comment Invalid Interpretation Code 5.0-9.0 [facility] Comment on above: Performed By: #### 4 [id number] #### [facility] [address] [place] [address] UA Protein see comment Invalid Interpretation Code [facility] Comment on above: Performed By: #### 4 [id number] #### [facility] [address] [place] [address] UA Spec Grav see comment Invalid Interpretation Code 1.005-1.030 [facility] Comment on above: Performed By: #### 4 [id number] #### [facility] [address] [place] [address] UA Urobilinogen see comment Invalid Interpretation Code [facility] Comment on above: Performed By: #### 4 [id number] #### [facility] [address] [place] [address] UA Spec Desc Clean Catch Normal [facility] Comment on above: Performed By: #### 4 [id number] #### [facility] [address] [place] [address] Urology Office/Clinic Noteon 03-12-2025 Urology Office/Clinic Note [...] dose., # 1 tab(s), Refills(s) 2, Pharmacy: [facility]/pharmacy #[id number], 155, cm, 03/12/25 11:55:00 EDT, Hei... E&M of Est. Patient Moderate 30-39 Min 53439 Urinalysis with Micro Urine Culture Urnls Dip Stick Auto w/o Microscopy POC 40154 2. Atrophic vaginitis (N95.2: Postmenopausal atrophic vaginitis) [...] E&M of Est. Patient Moderate 30-39 Min 72417 3. Mixed incontinence (N39.46: Mixed incontinence) BBS [...] previously discu (more content not included)... Normal [facility] Comment on above: Result Comment: Elec tronically Signed By: Vickey GALAVIZ, Lacey Oscar\.br\Date and Time Signed: 03/12/25 13:12 EDT Laboratory - Chemistry and C hemistry - challengeOrdered By: Edwin Mohan on 02-28-2025 Bilirubin Ql (U) Negative [facility] Glucose (U) [Mass/Vol] [facility] Ketones Ql (U) Negative [facility] pH (U) 6.5 [pH] [facility] Specific gravity (U) [Rel density] 1.000 [facility] Urobilinogen (U) [Mass/Vol] 0.2 mg/dL [facility] Laboratory - Specimen inform ationOrdered By: Edwin Mohan on 02-28-2025 Appearance (U) cloudy [facility] Color (U) darkyellow [facility] Laboratory - UrinalysisOrder ed By: Edwin Mohan on 02-28-2025 Leukocyte esterase Test strip Ql (U) ++ [facility] Nitrite Ql (U) Negative [facility] Protein Ql (U) ++ [facility] No Panel InformationOrdered By: Edwin Mohan on 02-28-2025 Urine Occult Blood +++ [facility] XR elbow RT min 3V*on 2024 XR elbow RT min 3V* [facility] [address] [place] [address] XRay Report Signed Patient: Chelly Tillman MR#: [id number] : 1945 Acct:[id number] Age/Sex: 79 / F ADM Date: 02/05/25 Loc: [facility] [place] Room: Type: [facility] Attending Dr: Wilrfed Orozco DO Copies to: Wilfred Orozco DO [...] FRACTURE. Impression dictated by: Chencho Hernandez Jr., D.OVasquez 02/05/2025 4:15 PM Dictation Location: [place] [address] Transcribed By: ANAYELI 02/05/251614 Dictated By: Chencho Hernandez Jr, DO 02/05/251613 Signed By: 02/05/251614 Normal [facility] Ambulatory Visit Summaryon 0 01-02-2025 [...] Tab) trospium (trospium 20 mg oral tablet) umeclidinium-vilantero l (Anoro Ellipta 62.5 mcg-25 mcg inhalation powder) [...] 1 Tablets By Mouth Every day Unchanged umeclidinium-vilantero l (Anoro Ellipta 62.5 mcg-25 mcg inhalation powder) [...] for choosing us for your care. Normal [facility] Urology Office/Clinic Noteon 01-02-2025 Urology Office/Clinic Note [...] send Gemtesa 75 mg PO daily to [facility] pharmacy to see if medication will be [...] understanding. -Send Gemtesa 75mg PO daily to [facility]. -If not covered, consider starting Trospium 20mg PO daily (if pt wishes). If she starts, aggressive bowel regimen recommended -Increase water intake, avoid bladder irritants -Timed voids, double voids -Avoid constipation, cont daily fiber -F/U 3 months w/ PVR, call sooner if needed Ordered: vibegron, 75 mg = 1 tab(s), Oral, Daily, X 30 day(s), # 30 tab(s), Refills(s) 3, Pharmacy: [facility], 155, cm, 01/02/25 14:55:00 EDT, Height/Length Dosing, 80.9, kg, 01/02/25 14:55:00 EDT, Weight Dosing 36770 Measure Post Void residual urine and/or bladder [...] Urnls Dip Stick Auto w/o Microscopy POC 30396 2. Gross hematuria (R31.0: Gross hematuria) Former smoker x41 yrs. No occupational exposure. No fam hx of cancers. Recent hematuria work-up negative: CT AP w con 11/11/23 [facility] - No renal mass, obstruction, or calcification. No bladder wall thickening, lesion, or calculus. Cytol 05/30/24 - negative S/p cysto 07/12/24 - 1+ trabeculations, no bladder tumors, lesions, foreign b (more content not included)... Normal [facility] Comment on above: Result Comment: Elec tronically Signed By: Rere BENDER, Genevieve\.br\Date and Time Signed: 01/02/25 16:02 EDT X-ray reportOrdered By: Donald Hernandez on 12-11-2024 Study report [facility] [place] [address] XRay Report Signed Patient: Chelly Tillman MR#: [id number] : 1945 Acct:[id number] Age/Sex: 79 / F ADM Date: 5 Loc: [facility] [facility] Room: Type: REG CLI Attending Dr: Wilfred [...] Hernandez Jr., DVasquezOVasquez12/11/2024 10:26 PM Dictation Location: [place] [address] Transcribed By: [facility] 12/11/242225 Dictated By: Chencho Hernandez Jr, DO 12/11/242224 Signed By: 12/11/242225 [facility] XR elbow RT min 3V*on 2024 XR elbow RT min 3V* [facility] [place] [address] XRay Report Signed Patient: Chelly Tillman MR#: [id number] 267 : 1945 Acct:[id number] Age/Sex: 79 / F ADM Date: 12/11/24 Loc: [facility] Room: Type: REG CLI Attending Dr: Wilfred [...] 10:26 PM Dictation Location: RADIO-PC-18 Transcribed By: ANAYELI 12/11/242225 Dictated By: Chencho Hernandez Jr, DO 12/11/242224 Signed By: 12/11/2422[address] [facility] X-ray reportOrdered By: Jeimy Choi on 11-06-2024 Study report [facility] [address] [place] [address] XRay Report Signed Patient: Chelly Tillman MR#: [id number] : 1945 Acct:[id number] Age/Sex: 79 / F ADM Date: 5 Loc: [facility] Room: Type: [facility] Attending Dr: Wilfred Orozco DO Copies to: Wilfred Orozco DO~ Ordering Provider: Wilfred Orozco DO Date of Service: 11/06/24 XR/XR elbow RT min 3V*: S52.124D - Nondisplaced fracture of head of right radius,... RIGHT ELBOW - 4 VIEWS CLINICAL HISTORY: Follow-up radial fracture COMPARISON: 11/03/2024 AP, lateral and both oblique views were obtained. A similar minimally displacedintra-articul ar fracture at the radial head is again seen, without change There is no new fracture or dislocation. A small amount of joint fluid is seen. XR/XR elbow RT min 3V* IMPRESSION: STABLE RADIAL FRACTURE. Impression dictated by: Chiara Choi M.D.11/06/2024 4:17 PM Dictation Location: RADIO-PC-23 Transcribed By: ANAYELI 11/06/24 1617 Dictated By: Chiara Choi MD 11/06/24 1609 Signed By: 11/06/24 1617 [facility] Work Phone: XR elbow RT min 3V*on 2024 XR elbow RT min 3V* [facility] [address] [place] [address] XRay Report Signed Patient: Chelly Tillman MR#: [id number] 267 : 1945 Acct:[id number] Age/Sex: 79 / F ADM Date: 11/06/24 Loc: [facility] Room: Type: [facility] Attending Dr: Wilfred Orozco DO Copies to: [...] PM Dictation Location: RADIO-PC-23 Transcribed By: ANAYELI 11/06/24 1617 Dictated By: Chiara Choi MD 11/06/24 1609 Signed By: 11/06/[address] [facility] X-ray reportOrdered By: Juan Young on 11-03-2024 Study report [facility] [place] [address] [place] [address] XRay Report Signed Patient: Chelly Tillman MR#: [id number] : 1945 Acct:[id number] Age/Sex: 79 / F ADM Date: 5 Loc: ER Room: Type: [facility] ER Attending Dr: Copies to: Roberto [...] By: Cornelio Young DO 11/03/241705 Signed By: 11/03/24 170 [facility] XR elbow RT min 3V*on 2024 XR elbow RT min 3V* [facility] [place] [address] XRay Report Signed Patient: Chelly Tillman MR#: [id number] : 1945 Acct:[id number] Age/Sex: 79 / F ADM Date: 11/03/24 Loc: ER Room: Type: [facility] ER Attending Dr: Copies to: Roberto [...] ANAYELI 11/03/241707 Dictated By: Cornelio Young DO 03/15/25 1706 Signed By: 11/03/[address] [facility] Estimated glomerular filtrat ion rate (GFR) non- Americanon 09-29-2024 GFR/1.73 sq M.predicted among non-blacks MDRD (S/P/Bld) [Vol rate/Area] Estimated glomerular filtration rate (GFR) non- >=60 mL/min/1.73m 2 [facility] Globulin Calc (S) [Mass/Vol] on 09-29-2024 Globulin (S) [Mass/Vol] Serum globulin measurement by calculation (mass/volume) [facility] Laboratory - Chemistry and C hemistry - challengeon 09-29-2024 Albumin [Mass/Vol] 3.5 g/dL 3.4-5.0 [facility] ALP [Catalytic activity/Vol] 107 U/L 46-116 [facility] ALT [Catalytic activity/Vol] 17 U/L 14-59 [facility] AST [Catalytic activity/Vol] 16 U/L 15-37 [facility] Bilirubin [Mass/Vol] 0.6 mg/dL 0.2-1.0 [facility] Calcium [Mass/Vol] 9.5 mg/dL 8.5-10.1 [facility] Chloride [Moles/Vol] 105 mmol/L 98-107 [facility] CO2 [Moles/Vol] 28.8 mmol/L 21.0-32.0 [facility] Creatinine [Mass/Vol] 0.71 mg/dL 0.55-1.02 [facility] GFR/1.73 sq M.predicted MDRD (S/P/Bld) [Vol rate/Area] mL/min/{1.73_m2} >=60 mL/min/1.73m 2 [facility] Glucose [Mass/Vol] 106 mg/dL 74-106 [facility] Potassium [Moles/Vol] 4.4 mmol/L 3.5-5.1 [facility] Protein [Mass/Vol] 7.4 g/dL 6.4-8.2 [facility] Sodium [Moles/Vol] 141 mmol/L 136-145 [facility] Urea nitrogen [Mass/Vol] 13.0 mg/dL 7.0-18.0 [facility] Urea nitrogen/Creatinine [Mass ratio] 18.3 mg/mg [facility] Serum or plasma albumin/glob ulin mass ratioon 09-29-2024 Albumin/Globulin [Mass ratio] Serum or plasma albumin/globulin mass ratio [facility] Serum or plasma anion gap de terminationon 09-29-2024 Anion gap [Moles/Vol] Serum or plasma an ion gap determination [facility] Urine Cytology ([facility])on Microscopic exam Cytology (U) [Interp] Diagnosis Info Invalid Interpretation Code [facility] Comment on above: Result Comment: A:Ur ine,Clean Catch:Bladder Wash Interpretation - Adequate cellularity for evaluation. CPT 91042 MicroScopic Description - Adequacy - Gross Description Site ID:A color Yellow fixative Alcohol Specimen designated Clean Catch received in alcohol preservative and labeled with the patient???s name, consists of 40ml clear yellow fluid. Electronically signed by : on: 06/04/2024 15:27:59 Performed By: #### 1 [id number] #### [facility] [address] [place] [address] Ambulatory Visit Summaryon Ambulatory Visit Summary Ambulatory [...] mg Cap-DR) tramadol (traMADOL 50 mg Tab) umeclidinium-vilantero l (Anoro Ellipta 62.5 mcg-25 mcg inhalation powder) Procedures Performed Cataract, Colonoscopy, History of hysterectomy, History of tonsillectomy. Discharge Vitals Height 155 cm Height 61 in Weight 81 kg Weight 178.2 lb BMI 33.71 What to do next You Need to Schedule the Following Appointments Follow Up with Evgeny CHO, SHIN Bejarano, URO When: Comments: sched cysto Where: [address], [place] [address] [phone] Medications What How Much When Instructions New estradiol topical (Estrace 0.1 mg/ g Cream) See instructions Refills: 1 Apply a pea-sized amount to the vagina/ urethra 3x/ week for a month, then 2x/ week for maintenance Pickup at [facility]/pharmacy #[id number] New vibegron (Gemtesa 75 mg oral tablet) 1 Tablets By Mouth Every day Refills: 11 Pickup at [facility]/pharmacy #[id number] Unchanged albuterol (albuterol HFA 90 [...] prescribing physician if questions or concerns Unchanged umeclidinium-vilantero l (Anoro Ellipta 62.5 mcg-25 mcg inhalation powder) 1 Unknown, Respiratory (Inhalation), 0 Refill(s) Contact prescribing physician if questions or concerns Pharmacy Information [facility]/pharmacy #[id number]: [address], [place] [phone] Allergies No active allergies Problems Ongoing - [...] cancers. Follo (more content not included)... Normal [facility] Urine Cytology ([facility])on Method of Extraction Bladder Urine Normal [facility] Comment on above: Performed By: #### 1 [id number] #### [facility] [address] [place] [address] Number of Jars 1 Invalid Interpretation Code [facility] Comment on above: Performed By: #### 1 [id number] #### [facility] [address] [place] [address] Specimen Clean Catch Normal [facility] Comment on above: Performed By: #### 1 [id number] #### [facility] [address] [place] [address] Type of Service Technical Only Normal [facility] Comment on above: Performed By: #### 1 [id number] #### [facility] [address] [place] [address] Urology Office/Clinic Noteon 05-30-2024 Urology Office/Clinic Note Urology Office/Clinic Note [facility] HPI Staff 79 [...] patient. These include: Prostatic disease, trauma, Tumor, infection/inflammation , stones, period/menses (pseudohematuria), obstructive uropathy (urolithiasis, stricture, [...] and tri (more content not included)... Normal [facility] Comment on above: Result Comment: Elec tronically Signed By: Evgeny CHO, Kari Bob\.br\Date and Time Signed: 05/30/24 10:40 EDT\.br\Electronically Co-Signed By: Manuela Emanuel\.br\Date and Time Co-Signed: 05/30/24 09:17 EDT MG MAMM SCREEN 3D JESSENIA CADon 05-25-2022 MG MAMM SCREEN 3D JESSENIA CAD Patient: CHELLY TILLMAN Exam Date: 05/25/2022 : 1945 Gender:F Ordering : DR EDWIN MOHAN D.O. Admission #: [id number] Family : Order #: [id number] CLICK HERE TO VIEW EXAM RADIOLOGY REPORT [...] Treatments None Family Cancers None LOCATION: [facility] BREAST COMPOSITION: Scattered areas fibroglandular [...] on 05/26/2022 at 07:42 Approved by: Bharti Pagie MD on 05/26/2022 at 07:48 Normal [facility] CBC AUTO DIFFon 03-27-2022 BASO # 0.0 103/ul Normal 0.0-0.1 [facility] Comment on above: Performed By: #### C BC #### [facility] [address] [place] [address] Dr. Eduardo Segura Basophils/100 WBC (Bld) 0.3 % Normal 0.2-2.0 [facility] Comment on above: Performed By: #### C BC #### [facility] [address] [place] [address] Dr. Eduardo Segura EO # 0.3 103/ul Normal 0.0-0.7 [facility] Comment on above: Performed By: #### C BC #### [facility] [address] [place] [address] Dr. Eduardo Segura Eosinophils/100 WBC (Bld) 4.3 % Normal 0.9-7.0 [facility] Comment on above: Performed By: #### C BC #### [facility] [address] [place] [address] Dr. Eduardo Segura Erythrocyte distribution width (RBC) [Ratio] 13.7 % Normal 11.0-15.0 [facility] Comment on above: Performed By: #### C BC #### [facility] [address] [place] [address] Dr. Eduardo Segura Hematocrit (Bld) [Volume fraction] 42.6 % Normal 36.0-48.0 [facility] Comment on above: Performed By: #### C BC #### [facility] [address] [place] [address] Dr. Eduardo Segura Hemoglobin (Bld) [Mass/Vol] 14.1 g/dL Normal 12.0-16.0 [facility] Comment on above: Performed By: #### C BC #### [facility] [address] [place] [address] Dr. Eduardo Segura IG # 0.02 10e3/ul Normal 0.00-0.03 [facility] Comment on above: Performed By: #### C BC #### [facility] [address] [place] [address] Dr. Eduardo Segura IG % 0.3 % Normal 0.0-0.5 [facility] Comment on above: Performed By: #### C BC #### [facility] [address] [place] [address] Dr. Eduardo Segura LYMPH # 2.3 103/ul Normal 1.2-3.8 [facility] Comment on above: Performed By: #### C BC #### [facility] [address] [place] [address] Dr. Eduardo Segura Lymphocytes/100 WBC (Bld) 31.9 % Normal 20.5-60.0 [facility] Comment on above: Performed By: #### C BC #### [facility] [address] [place] [address] Dr. Eduardo Segura MANUAL DIFF REQ NO Normal [facility] Comment on above: Performed By: #### C BC #### [facility] [address] [place] [address] Dr. Eduardo Segura MCH (RBC) [Entitic mass] 31.1 pg Normal 26.7-34.0 [facility] Comment on above: Performed By: #### C BC #### [facility] [address] [place] [address] Dr. Eduardo Segura MCHC (RBC) [Mass/Vol] 33.1 g/dL Normal 29.9-35.2 [facility] Comment on above: Performed By: #### C BC #### [facility] [address] [place] [address] Dr. Eduardo Segura MCV (RBC) [Entitic vol] 94.0 fL Normal 81.0-99.0 [facility] Comment on above: Performed By: #### C BC #### [facility] [address] [place] [address] Dr. Eduardo Segura MONO # 0.6 103/ul Normal 0.3-0.8 [facility] Comment on above: Performed By: #### C BC #### [facility] [address] [place] [address] Dr. Eduardo Segura Monocytes/100 WBC (Bld) 7.7 % Normal 1.7-12.0 [facility] Comment on above: Performed By: #### C BC #### [facility] [address] [place] [address] Dr. Eduardo Segura NEUT # 4.0 103/ul Normal 1.4-6.5 [facility] Comment on above: Performed By: #### C BC #### [facility] [address] [place] [address] Dr. Eduardo Segura Neutrophils/100 WBC (Bld) 55.5 % Normal 43.0-75.0 [facility] Comment on above: Performed By: #### C BC #### [facility] [address] [place] [address] Dr. Eduardo Segura Platelet mean volume (Bld) [Entitic vol] 10.2 fL Normal 9.5-13.5 [facility] Comment on above: Performed By: #### C BC #### [facility] [address] [place] [address] Dr. Eduardo Segura PLT 286 103/ul Normal 150-450 [facility] Comment on above: Performed By: #### C BC #### [facility] [address] [place] [address] Dr. Eduardo Segura RBC 4.53 106/ul Normal 4.20-5.40 [facility] Comment on above: Performed By: #### C BC #### [facility] [address] [place] [address] Dr. Eduardo Segura WBC 7.2 103/ul Normal 4.0-11.0 [facility] Comment on above: Performed By: #### C BC #### [facility] [address] [place] [address] Dr. Eduardo Segura GLYCOHEMOGLOBIN A1Con 2021 ADA RECOMMENDATION SEE BELOW Normal [facility] Comment on above: Result Comment: ADA RECOMMENDED LIMIT 4.0 - 6.0 ADA THERAPEUTIC TARGET < 7.0 ACTION SUGGESTED > 7.0 Performed By: #### A 1C #### [facility] [address] [place] [address] Dr. Eduardo Segura Glucose [Mass/Vol] 134 mg/dL Normal [facility] Comment on above: Performed By: #### A 1C #### [facility] [address] [place] [address] Dr. Eduardo Segura HbA1c (Bld) [Mass fraction] 6.3 % Critically high 4.5-6.2 [facility] Comment on above: Performed By: #### A 1C #### [facility] [address] [place] [address] Dr. Eduardo Segura LIPID PROFILEon 03-27-2022 CHOL-HDL RATIO NORM SEE BELOW Normal [facility] Comment on above: Result Comment: 3.3 - 4.4 LOW RISK 4.4 - 7.1 AVERAGE RISK 7.1 - 11.0 MODERATE RISK >11.0 HIGH RISK Performed By: #### B MP, LIPID, ALT #### [facility] [address] [place] [address] Dr. Eduardo Segura Cholesterol [Mass/Vol] 154 mg/dL Normal <=200 Th [facility] Comment on above: Performed By: #### B MP, LIPID, ALT #### [facility] [address] [place] [address] Dr. Eduardo Segura Cholesterol in HDL [Mass/Vol] 60 mg/dL Normal 40-60 [facility] Comment on above: Performed By: #### B MP, LIPID, ALT #### [facility] [address] [place] [address] Dr. Eduardo Segura Cholesterol in LDL [Mass/Vol] 75.4 mg/dL Normal [facility] Comment on above: Performed By: #### B MP, LIPID, ALT #### [facility] [address] [place] [address] Dr. Eduardo Segura Cholesterol.total/Kasandra sterol in HDL [Mass ratio] 2.6 {ratio} Normal [facility] Comment on above: Performed By: #### B MP, LIPID, ALT #### [facility] [address] [place] [address] [address] Eduardo Segura HDL NORMAL > or = 60 mg/dl - LO W CARDIOVASCULAR RISK <40 mg/dl - HIGH CARDIOVASCULAR RISK Normal [facility] Comment on above: Performed By: #### B MP, LIPID, ALT #### [facility] [address] [place] [address] Dr. Eduardo Segura LDL CALC NORMAL SEE BELOW Normal [facility] Comment on above: Result Comment: <100 mg/dl OPTIMAL 100 - 129 mg/dl NEAR OR ABOVE OPTIMAL 130 - 159 mg/dl BORDERLINE HIGH 160 - 189 mg/dl HIGH >190 mg/dl VERY HIGH Performed By: #### B MP, LIPID, ALT #### [facility] [address] [place] [address] Dr. Eduardo Segura Triglyceride [Mass/Vol] 93 mg/dL Normal <=150 [facility] Comment on above: Performed By: #### B MP, LIPID, ALT #### [facility] [address] [place] [address] [address] Eduardo Segura VLDL CALC 18.6 mg/dL Normal [facility] Comment on above: Performed By: #### B MP, LIPID, ALT #### [facility] [address] [place] [address] [address] Eduardo Segura PROF CHEM 8 (BAS METB)on Anion gap [Moles/Vol] 15.0 mmol/L Normal [facility] Comment on above: Performed By: #### B MP, LIPID, ALT #### [facility] [address] [place] [address] Dr. Eduardo Segura Calcium [Mass/Vol] 9.8 mg/dL Normal 8.5-10.1 [facility] Comment on above: Performed By: #### B MP, LIPID, ALT #### [facility] [address] [address] [address] Eduardo Segura Chloride [Moles/Vol] 105 mmol/L Normal 98-107 [facility] Comment on above: Performed By: #### B MP, LIPID, ALT #### [facility] [address] [address] [address] Eduardo Segura CO2 [Moles/Vol] 25.2 mmol/L Normal 21.0-32.0 [facility] Comment on above: Performed By: #### B MP, LIPID, ALT #### [facility] [address] [place] [address] Dr. Eduardo Segura Creatinine [Mass/Vol] 0.77 mg/dL Normal 0.55-1.02 [facility] Comment on above: Performed By: #### B MP, LIPID, ALT #### [facility] [address] [place] [address] Dr. Eduardo Segura EGFR-AF GHANAIAN >60 Normal >=60 [facility] Comment on above: Performed By: #### B MP, LIPID, ALT #### [facility] [address] [place] [address] Dr. Eduardo Segura EGFR-NON AF GHANAIAN >60 Normal >=60 [facility] Comment on above: Performed By: #### B MP, LIPID, ALT #### [facility] [address] [place] [address] Dr. Eduardo Segura Glucose [Mass/Vol] 142 mg/dL Critically high 74-106 [facility] Comment on above: Performed By: #### B MP, LIPID, ALT #### [facility] [address] [place] [address] Dr. Eduardo Segura Potassium [Moles/Vol] 4.2 mmol/L Normal 3.5-5.1 [facility] Comment on above: Performed By: #### B MP, LIPID, ALT #### [facility] [address] [place] [address] Dr. Eduardo Segura Sodium [Moles/Vol] 141 mmol/L Normal 136-145 [facility] Comment on above: Performed By: #### B MP, LIPID, ALT #### [facility] [address] [place] [address] Dr. Eduardo Segura Urea nitrogen [Mass/Vol] 17.0 mg/dL Normal 7.0-18.0 [facility] Comment on above: Performed By: #### B MP, LIPID, ALT #### [facility] [address] [address] [address] Eduardo Segura Urea nitrogen/Creatinine [Mass ratio] 22.1 mg/mg Normal [facility] Comment on above: Performed By: #### B MP, LIPID, ALT #### [facility] [address] [address] [address] Eduardo Segura [facility] 03-27-2022 ALT [Catalytic activity/Vol] 20 U/L Normal 14-59 [facility] Comment on above: Performed By: #### B MP, LIPID, ALT #### [facility] [address] [address] [address] Eduardo Segura Vital Signs Date Time Vital Sign Value Performing Clinician Facility 04-23-2025 13:44-0400 Body height 154.94 cm Edwin Ball DO Work Phone: [facility] 04-23-2025 13:44-0400 Body mass index (BMI) [Ratio] 34.2 kg/m2 Edwin Ball DO Work Phone: [facility] 04-23-2025 13:44-0400 Body weight 82.1 kg Edwin Ball DO Work Phone: [facility] 04-23-2025 13:44-0400 Diastolic blood pressure 72 mm[Hg] Edwin Ball DO Work Phone: [facility] 04-23-2025 13:44-0400 Heart rate 50 /min Edwin Ball DO Work Phone: [facility] 04-23-2025 13:44-0400 Respiratory rate 12 /min Edwin Ball DO Work Phone: [facility] 04-23-2025 13:44-0400 Systolic blood pressure 111 mm[Hg] Edwin Ball DO Work Phone: [facility] 02-07-2025 09:53-0400 Body height 154.94 cm Edwin Ball DO Work Phone: [facility] 02-07-2025 09:53-0400 Body mass index (BMI) [Ratio] 34.2 kg/m2 Edwin Ball DO Work Phone: [facility] 02-07-2025 09:53-0400 Body weight 82.15 kg Edwin Ball DO Work Phone: [facility] 02-07-2025 09:53-0400 Diastolic blood pressure 75 mm[Hg] Edwin Ball DO Work Phone: [facility] 02-07-2025 09:53-0400 Heart rate 59 /min Edwin Ball DO Work Phone: [facility] 02-07-2025 09:53-0400 Respiratory rate 12 /min Edwin Ball DO Work Phone: [facility] 02-07-2025 09:53-0400 Systolic blood pressure 135 mm[Hg] Edwin Ball DO Work Phone: [facility] 01-28-2025 14:41-0400 Body height 154.94 cm Edwin Ball DO Work Phone: [facility] 01-28-2025 14:41-0400 Body mass index (BMI) [Ratio] 34.8 kg/m2 Edwin Ball DO Work Phone: [facility] 01-28-2025 14:41-0400 Body weight 83.63 kg Edwin Ball DO Work Phone: [facility] 01-28-2025 14:41-0400 Diastolic blood pressure 89 mm[Hg] Edwin Ball DO Work Phone: [facility] 01-28-2025 14:41-0400 Heart rate 69 /min Edwin Ball DO Work Phone: [facility] 01-28-2025 14:41-0400 Respiratory rate 12 /min Edwin Ball DO Work Phone: [facility] 01-28-2025 14:41-0400 Systolic blood pressure 139 mm[Hg] Edwin Ball DO Work Phone: [facility] 01-02-2025 14:40-0400 Blood Pressure Location Genevieve Floresa [facility] 01-02-2025 14:40-0400 Body temperature 97.16 [degF] Genevieve Floresa [facility] 01-02-2025 14:40-0400 Diastolic blood pressure 62 mm[Hg] Genevieve Floresa [facility] 01-02-2025 14:40-0400 Heart rate 54 /min Genevieve Floresa [facility] 01-02-2025 14:40-0400 Respiratory rate 18 /min Genevieve Floresa [facility] 01-02-2025 14:40-0400 Systolic blood pressure 126 mm[Hg] Genevieve Floresa [facility] 11-06-2024 12:30-0400 Body height 154.94 cm Edwin Ball DO Work Phone: [facility] 11-06-2024 12:30-0400 Body mass index (BMI) [Ratio] 35.5 kg/m2 Edwin Ball DO Work Phone: [facility] 11-06-2024 12:30-0400 Body weight 85.27 kg Edwin Ball DO Work Phone: [facility] 11-05-2024 14:08-0400 Body height 154.94 cm Edwin Ball DO Work Phone: [facility] 11-05-2024 14:08-0400 Body mass index (BMI) [Ratio] 35.5 kg/m2 Edwin Ball DO Work Phone: [facility] 11-05-2024 14:08-0400 Body weight 85.27 kg Edwin Ball DO Work Phone: [facility] 11-05-2024 14:08-0400 Diastolic blood pressure 70 mm[Hg] Edwin Ball DO Work Phone: [facility] 11-05-2024 14:08-0400 Heart rate 56 /min Edwin Ball DO Work Phone: [facility] 11-05-2024 14:08-0400 Respiratory rate 12 /min Edwin Ball DO Work Phone: [facility] 11-05-2024 14:08-0400 SaO2% (BldA) [Mass fraction] 96 % Edwin Ball DO Work Phone: [facility] 11-05-2024 14:08-0400 Systolic blood pressure 115 mm[Hg] Edwin Ball DO Work Phone: [facility] 11-03-2024 17:50-0400 Diastolic blood pressure 74 mm[Hg] Edwin Ball DO Work Phone: [facility] 11-03-2024 17:50-0400 Systolic blood pressure 135 mm[Hg] Edwin Ball DO Work Phone: [facility] 11-03-2024 16:40-0400 Body height 154.94 cm Edwin Ball DO Work Phone: [facility] 11-03-2024 16:40-0400 Body temperature 97.6 [degF] Edwin Ball DO Work Phone: [facility] 11-03-2024 16:40-0400 Body weight 86 kg Edwin Ball DO Work Phone: [facility] 11-03-2024 16:40-0400 Diastolic blood pressure 79 mm[Hg] Edwin Ball DO Work Phone: [facility] 11-03-2024 16:40-0400 Heart rate 57 /min Edwin Ball DO Work Phone: [facility] 11-03-2024 16:40-0400 Respiratory rate 20 /min Edwin Ball DO Work Phone: [facility] 11-03-2024 16:40-0400 SaO2% (BldA) [Mass fraction] 93 % Edwin Ball DO Work Phone: [facility] 11-03-2024 16:40-0400 Systolic blood pressure 185 mm[Hg] Edwin Ball DO Work Phone: [facility] 08-13-2024 10:32-0500 Body height 165.1 cm Edwin Ball DO Work Phone: [facility] 08-13-2024 10:32-0500 Body mass index (BMI) [Ratio] 31.6 kg/m2 Edwin Ball DO Work Phone: [facility] 08-13-2024 10:32-0500 Body weight 86.18 kg Edwin Ball DO Work Phone: [facility] 08-13-2024 10:32-0500 Diastolic blood pressure 82 mm[Hg] Edwin Ball DO Work Phone: [facility] 08-13-2024 10:32-0500 Heart rate 55 /min Edwin Ball DO Work Phone: [facility] 08-13-2024 10:32-0500 Respiratory rate 12 /min Edwin Ball DO Work Phone: [facility] 08-13-2024 10:32-0500 Systolic blood pressure 131 mm[Hg] Edwin Ball DO Work Phone: [facility] 08-09-2023 15:00-0500 Body height 165.1 cm Edwin Ball Other [facility] [employer] Other 08-09-2023 15:00-0500 Body mass index (BMI) [Ratio] 32.88 kg/m2 Edwin Ball Other [facility] [employer] Other 08-09-2023 15:00-0500 Body weight 89.63 kg Edwin Ball Other [employer] Other 08-09-2023 15:00-0500 Diastolic blood pressure 94 mm[Hg] Edwin Ball Other [employer] Other 08-09-2023 15:00-0500 Respiratory rate 12 /min Edwin Ball Other [employer] Other 08-09-2023 15:00-0500 Systolic blood pressure 134 mm[Hg] Edwin Ball Other [employer] Other 06-08-2023 14:15-0400 Body height 165.1 cm Edwin Ball Other [employer] Other 06-08-2023 14:15-0400 Body mass index (BMI) [Ratio] 33.71 kg/m2 Edwin Ball Other [employer] Other 06-08-2023 14:15-0400 Body weight 91.9 kg Edwin Ball Other [employer] Other 06-08-2023 14:15-0400 Diastolic blood pressure 82 mm[Hg] Edwin Ball Other [employer] Other 06-08-2023 14:15-0400 Respiratory rate 12 /min Edwin Ball Other [employer] Other 06-08-2023 14:15-0400 Systolic blood pressure 128 mm[Hg] Edwin Ball Other [employer] Other 06-03-2023 11:30-0400 Body height 165.1 cm Edwin Ball Other [employer] Other 06-03-2023 11:30-0400 Body mass index (BMI) [Ratio] 33.71 kg/m2 Edwin Ball Other [employer] Other 06-03-2023 11:30-0400 Body weight 91.9 kg Edwin Ball Other [employer] Other 06-03-2023 11:30-0400 Diastolic blood pressure 80 mm[Hg] Edwin Ball Other [employer] Other 06-03-2023 11:30-0400 Respiratory rate 12 /min Edwin Ball Other [employer] Other 06-03-2023 11:30-0400 Systolic blood pressure 130 mm[Hg] Edwin Ball Other [employer] Other 04-12-2023 10:45-0400 Body height 165.1 cm Edwin Ball Other [employer] Other 04-12-2023 10:45-0400 Body mass index (BMI) [Ratio] 34.61 kg/m2 Edwin Ball Other [employer] Other 04-12-2023 10:45-0400 Body weight 94.35 kg Edwin Ball Other [employer] Other 04-12-2023 10:45-0400 Diastolic blood pressure 74 mm[Hg] Edwin Ball Other [employer] Other 04-12-2023 10:45-0400 Respiratory rate 20 /min Edwin Ball Other [employer] Other 04-12-2023 10:45-0400 Systolic blood pressure 116 mm[Hg] Edwin Ball Other [employer] Other 03-29-2023 10:30-0400 Body height 165.1 cm Edwin Ball Other [employer] Other 03-29-2023 10:30-0400 Body mass index (BMI) [Ratio] 34.48 kg/m2 Edwin Ball Other [employer] Other 03-29-2023 10:30-0400 Body weight 93.99 kg Edwin Ball Other [employer] Other 03-29-2023 10:30-0400 Diastolic blood pressure 70 mm[Hg] Edwin Ball Other [employer] Other 03-29-2023 10:30-0400 Respiratory rate 12 /min Edwin Ball Other [employer] Other 03-29-2023 10:30-0400 Systolic blood pressure 158 mm[Hg] Edwin Ball Other [employer] Other 11-25-2022 11:30-0400 Body height 165.1 cm Edwin Ball Other [employer] Other 11-25-2022 11:30-0400 Body mass index (BMI) [Ratio] 35.61 kg/m2 Edwin Ball Other [employer] Other 11-25-2022 11:30-0400 Body weight 97.07 kg Edwin Ball Other [employer] Other 11-25-2022 11:30-0400 Diastolic blood pressure 76 mm[Hg] Edwin Ball Other [employer] Other 11-25-2022 11:30-0400 Respiratory rate 12 /min Edwin Ball Other [employer] Other 11-25-2022 11:30-0400 Systolic blood pressure 126 mm[Hg] Edwin Mohan Other [place] [employer] Other Encounters Encounter Date Encounter Type Care Provider Facility Start: 04-24-2025 End: 04-24-2025 ambulatory Genevieve Rere Facility:[facility] Start: 04-24-2025 End: 04-24-2025 Patient encounter procedure Kari Pepper [facility] Start: 04-23-2025 End: 04-23-2025 ambulatory Edwin Marques ALBERTO Work Phone: [facility] Work Phone: Start: 04-23-2025 End: 04-23-2025 Patient encounter procedure dEwin Mohan DO -[facility] Work Phone: Start: 04-10-2025 End: 04-10-2025 ambulatory Genevieve Rere Facility:[facility] Start: 04-10-2025 End: 04-10-2025 Patient encounter procedure Genevieve Rere [facility] Start: 04-05-2025 Non-patient / Non-visit Edwin kurtz DO -[place] [employer] Work Phone: Start: 03-13-2025 End: 03-13-2025 ambulatory Genevieve Rere Facility:[facility] Start: 03-13-2025 End: 03-13-2025 Patient encounter procedure Genevieve Rere [facility] Start: 03-12-2025 End: 03-12-2025 ambulatory Lacey J Galea Facility:[facility] Start: 03-12-2025 End: 03-12-2025 ambulatory Lacey J Galea Facility:[facility] [place] Start: 03-12-2025 End: 03-12-2025 Patient encounter procedure Lacey J Galea [facility] Start: 02-28-2025 End: 02-28-2025 ambulatory Ediwn Ball DO Work Phone: [facility] Work Phone: Start: 02-28-2025 End: 02-28-2025 Patient encounter procedure Edwin Mohan DO -[facility] Work Phone: Start: 02-07-2025 End: 02-07-2025 Patient encounter procedure Edwin Ball DO -[facility] Work Phone: Start: 02-05-2025 End: 02-05-2025 Patient encounter procedure Wilfred Orozco DO -[facility] Work Phone: Start: 02-05-2025 End: 02-05-2025 ambulatory Edwin Mohan Facility:[facility] Start: 02-05-2025 End: 02-05-2025 Patient encounter procedure Wilfred Orozco DO -[facility] Start: 01-28-2025 End: 01-28-2025 ambulatory Edwin Ball DO Work Phone: [facility] Work Phone: Start: 01-28-2025 End: 01-28-2025 Patient encounter procedure Edwin Mohan DO Work Phone: [facility] Work Phone: Start: 01-02-2025 End: 01-02-2025 ambulatory Genevieve Jernigan Facility: [place] Start: 01-02-2025 End: 01-02-2025 Patient encounter procedure Genevieve Floresa [facility] Start: 12-11-2024 End: 12-11-2024 ambulatory Edwin Ball DO Work Phone: [facility] Work Phone: Start: 12-11-2024 End: 12-11-2024 Patient encounter procedure Edwin Ball DO Work Phone: [facility] Work Phone: Start: 12-11-2024 End: 12-11-2024 Patient encounter procedure Edwin Ball DO Work Phone: [facility] Start: 12-11-2024 End: 12-11-2024 ambulatory Edwin Ball DO Work Phone: [facility] Work Phone: Start: 11-06-2024 End: 11-06-2024 ambulatory Edwin Ball DO Work Phone: [facility] Work Phone: Start: 11-06-2024 End: 11-06-2024 Patient encounter procedure Edwin Ball DO Work Phone: [facility] Work Phone: Start: 11-06-2024 End: 11-06-2024 Patient encounter procedure Edwin Ball DO Work Phone: [facility] Start: 11-06-2024 End: 11-06-2024 ambulatory Edwin Ball DO Work Phone: [facility] Work Phone: Start: 11-05-2024 End: 11-05-2024 ambulatory Edwin Ball DO Work Phone: [facility] Work Phone: Start: 11-05-2024 End: 11-05-2024 Patient encounter procedure Edwin Ball DO Work Phone: [facility] Work Phone: Start: 11-03-2024 End: 11-03-2024 Emergency department patient visit Edwin Ball DO Work Phone: [facility] Work Phone: Start: 09-29-2024 Non-patient / Non-visit Michael in Marques DO Work Phone: [facility] Work Phone: Start: 08-13-2024 End: 08-13-2024 Patient encounter procedure Edwin Mohan DO Work Phone: [facility] Work Phone: Start: 07-12-2024 End: 07-12-2024 ambulatory Kari M. Zahidae Facility:[id number] Start: 05-30-2024 End: 05-30-2024 Lab Drop off Kari M. Zahidae [facility] Start: 05-30-2024 End: 05-30-2024 ambulatory Kari M. Lue Facility:[facility] Start: 05-30-2024 End: 05-30-2024 Patient encounter procedure Kari LeaVasquez Lue [facility] Start: 05-18-2024 ambulatory Kari Lue Facility:[facility] Start: 04-03-2024 End: 04-03-2024 ambulatory ANGEL CAMPOS Not Available Start: 01-17-2024 End: 01-17-2024 ambulatory ANGEL CAMPOS Not Available Start: 10-14-2023 End: 10-14-2023 ambulatory Edwin Mohan Other [employer] Other Start: 10-14-2023 Telephone encounter Edwin CHUA [facility] Start: 09-19-2023 End: 09-19-2023 ambulatory ANGEL CAMPOS Not Available Start: 08-12-2023 End: 08-12-2023 ambulatory Edwin Marques Other [employer] Other Start: 08-12-2023 Telephone encounter Edwin CHUA [facility] Start: 08-11-2023 End: 08-11-2023 ambulatory Edwin Mohan Other [employer] Other Start: 08-11-2023 Telephone encounter Edwin Mohan [facility] Start: 08-09-2023 End: 08-09-2023 ambulatory Edwin Mohan Other [employer] Other Start: 08-09-2023 Office outpatient vi sit 25 minutes Edwin Ball [facility] Start: 08-04-2023 End: 08-04-2023 ambulatory Edwin Mohan Other [employer] Other Start: 08-04-2023 Telephone encounter Edwin Mohan [facility] Start: 08-02-2023 End: 08-02-2023 ambulatory YANY MARTINEZ Not Available Start: 07-25-2023 End: 07-26-2023 ambulatory Raphael Parisi MD Facility: [facility] Start: 07-19-2023 End: 07-19-2023 ambulatory Edwin Mohan Other [employer] Other Start: 07-19-2023 Office outpatient vi sit 15 minutes Edwin Mohan [facility] Start: 06-20-2023 End: 06-21-2023 ambulatory Raphael Parisi MD Facility: [facility] Start: 06-16-2023 End: 06-16-2023 ambulatory Edwin Mohan Other [employer] Other Start: 06-16-2023 Telephone encounter Edwin Mohan [facility] Start: 06-15-2023 End: 06-15-2023 ambulatory Edwin Mohan Other [employer] Other Start: 06-15-2023 Telephone encounter Edwin Mohan [facility] Start: 06-13-2023 End: 06-14-2023 ambulatory Raphael Parisi MD Facility: [facility] Start: 06-09-2023 End: 06-09-2023 ambulatory Edwin Ball Other [employer] Other Start: 06-09-2023 Telephone encounter Edwin Mohan [facility] Start: 06-08-2023 End: 06-08-2023 ambulatory Edwin Ball Other [employer] Other Start: 06-08-2023 Office outpatient vi sit 15 minutes Edwin Ball [facility] Start: 06-03-2023 End: 06-03-2023 ambulatory Edwin Ball Other [employer] Other Start: 06-03-2023 Office outpatient vi sit 25 minutes Edwin Ball [facility] Start: 05-25-2023 End: 05-25-2023 ambulatory Edwin Ball Other [employer] Other Start: 05-25-2023 Telephone encounter Edwin Marques [facility] Start: 05-23-2023 End: 05-23-2023 ambulatory DO Edwin Ball Work Phone: [facility] Work Phone: Start: 05-23-2023 End: 05-23-2023 Patient encounter procedure DO Edwin Ball Work Phone: [facility] Work Phone: Start: 04-21-2023 End: 04-21-2023 ambulatory Edwin Ball Other [employer] Other Start: 04-21-2023 Telephone encounter Edwin Ball [facility] Start: 04-20-2023 End: 04-20-2023 ambulatory Edwin Ball Other [employer] Other Start: 04-20-2023 Telephone encounter Edwin Ball [facility] Start: 04-18-2023 End: 04-18-2023 ambulatory Edwin Ball Other [employer] Other Start: 04-18-2023 Telephone encounter Edwin Mohan [facility] Start: 04-12-2023 End: 04-12-2023 ambulatory Edwin Mohan Other [employer] Other Start: 04-12-2023 Office outpatient vi sit 15 minutes Edwin Mohan [facility] Start: 04-12-2023 Telephone encounter Edwin Mohan [facility] Start: 04-07-2023 End: 04-07-2023 ambulatory Edwin Mohan Other [employer] Other Start: 04-07-2023 Telephone encounter Edwin Mohan [facility] Start: 03-29-2023 End: 03-29-2023 ambulatory Edwin Mohan Other [employer] Other Start: 03-29-2023 Office outpatient vi sit 15 minutes Edwin Mohan [facility] Start: 01-08-[address] EDWIN MOHAN Facili ty:[facility] Start: 11-30-2022 End: 11-30-2022 ambulatory Edwin Mohan Other [employer] Other Start: 11-30-2022 Telephone encounter Edwin Mohan [facility] Start: 11-28-2022 End: 11-28-2022 ambulatory Edwin Mohan Other [employer] Other Start: 11-28-2022 Telephone encounter Edwin Mohan [facility] Start: 11-25-2022 End: 11-25-2022 ambulatory Edwin Mohan Other [employer] Other Start: 11-25-2022 Patient encounter procedure Edwin Mohna [facility] Start: 11-08-2022 End: 11-08-2022 ambulatory Edwin Mohan Other [employer] Other Start: 11-08-2022 Telephone encounter Edwin Mohan [facility] Start: 11-01-2022 End: 11-01-2022 ambulatory Edwin Marques Other [employer] Other Start: 11-01-2022 Office outpatient vi sit 15 minutes Edwin Mohan [facility] Start: 10-19-2022 End: 10-19-2022 ambulatory Edwin Mohan Other [employer] Other Start: 10-19-2022 Telephone encounter Edwin Mohan [facility] Start: 07-22-2022 Adult health examination Edwin Mohan Other [employer] Other Start: 05-25-2022 End: 05-26-[address] [...] Treatment Date Care Activity Detail Author Start: 04-22-2025 Plain X-ray of right elbow XR elbow RT min 3V* [facility] Start: 12-11-2024 XR Elbow - right GE 3 Views [facility] Start: 11-06-2024 Plain X-ray of right elbow XR elbow RT min 3V* [facility] Start: 11-06-2024 XR Elbow - right GE 3 Views [facility] Comprehensive metabo lic 2000 panel - Serum or Plasma [facility] CT Chest WO contrast [facility] Patient Education Elbow Fracture , Adult ED [facility] Work Phone: Patient referral [facility] Work Phone: US Heart Transthor[facility] XR Humerus - left Views [facility] XR Knee - left 4 Views [facility] Immunizations Immunization Date Immunization Notes Care Provider Fa cility 05-20-2024 tetanus toxoid, redu mitzi diphtheria toxoid, and acellular pertussis vaccine, adsorbed Kari Lue [facility] 05-10-2024 influenza virus vaccine, unspecified formulation Kari Lue [facility] 04-08-2024 zoster vaccine recombinant Kari Lue [facility] 05-17-2023 influenza virus vaccine, unspecified formulation Kari Lue [facility] 07-03-2022 influenza virus vaccine, unspecified formulation Edwin Ball DO Work Phone: [facility] 07-03-2022 influenza, high dose seasonal, preservative-free Edwin Ball Other [employer] Other 06-23-2022 influenza, high dose seasonal, preservative-free Edwin Ball Other [employer] Other 06-23-2022 influenza virus vaccine, unspecified formulation Kari Pepper [facility] 05-18-2022 COVID-19 Pfizer (bivalent) Edwin Mohan Other [facility] 12-12-2021 COVID-19 Pfizer Edwin Joseluis jerardo Other [facility] 12-12-2021 COVID-19 Vaccine Pfi zer - Documentation Purposes Only Edwin Mohan Other [facility] 12-12-2021 SARS-CoV-2 mRNA (jmontkywidw-rdsh-xfvrk se) vaccine Kari Pepper [facility] 07-21-2021 influenza virus vaccine, split virus (incl. purified surface antigen) Edwin Mohan Other [employer] Other 07-21-2021 influenza virus vaccine, unspecified formulation Edwin Mohan DO Work Phone: [facility] 05-22-2021 COVID-19 Vaccine Pfi zer - Documentation Purposes Only Edwin Mohan Other [facility] Comment on above: Result Comment: 2023: [id number] 10-08-2020 COVID-19 Vaccine Pfi zer - Documentation Purposes Only Edwin Mohan Other [facility] Comment on above: Result Comment: 2023: [id number] 09-17-2020 COVID-19 Vaccine Moderna - Documentation Purposes Only Edwin Mohan Other [facility] 09-17-2020 COVID-19 Vaccine Pfi zer - Documentation Purposes Only Edwin Mohan Other [facility] Comment on above: Result Comment: 2023: [id number] 04-30-2020 influenza virus vaccine, split virus (incl. purified surface antigen) Edwin Mohan Other [facility] [employer] Other 04-30-2020 influenza virus vaccine, unspecified formulation Edwin Mohan DO Work Phone: [facility] 05-18-2019 pneumococcal polysaccharide vaccine, 23 valent Edwin Mohan Other [facility] 05-01-2018 pneumococcal polysaccharide vaccine, 23 valent Edwin Mohan Other [facility] 08-02-2017 diphtheria, tetanus toxoids and acellular pertussis vaccine, unspecified formulation Edwin Mohan Other [facility] 11-20-2016 pneumococcal polysaccharide vaccine, 23 valent Kari Pepper [facility] 06-05-2015 pneumococcal conjuga te vaccine, 13 valent Edwin Mohan Other [facility] 06-04-2015 pneumococcal conjuga te vaccine, 13 valent Edwin Mohan Other [facility] Payers Date Payer Category Payer Self-pay 2023 Private Health Insurance [id number] 2022 Medicare 2022 Private Health Insurance 1958 Medicare [id number] 2.1 [id number] Private Health Insurance CLI [id number] 1946 Unknown [id number] 2.16.84 0.1.264032.3.579.2.593 1945 Unknown [id number] 2.16.84 0.1.211736.3.579.2.593 1946 Unknown [id number] 2.16.84 0.1.220261.3.579.2.593 1945 Unknown [id number] 2.16. 840.1.761014.3.579.2.196 1946 Unknown [id number] 2.16. 840.1.001239.3.579.2.196 1946 Unknown [id number] 2.16. 840.1.923429.3.579.2.196 1946 Unknown [id number] 2.16.84 0.1.912927.3.579.2.1259 1946 Unknown [id number] 2.16.84 0.1.130178.3.579.2.1259 1946 Unknown [id number] 2.16.84 0.1.889390.3.579.2.1259 1946 Unknown [id number] 2.16.840 .1.577801.3.579.2.1259 1946 Unknown [id number] 2.16.8 40.1.231423.3.579.2.727 1946 Unknown [id number] 2.16.8 40.1.978770.3.579.2.727 1946 Unknown [id number] 2.16.8 40.1.256160.3.579.2.727 1946 Unknown [id number] 2.16.8 40.1.174477.3.579.2.727 1946 Unknown [id number] 2.16.8 40.1.880186.3.579.2.727 1946 Unknown [id number] 2.16.8 40.1.056316.3.579.2.727 1946 Unknown [id number] 2.16.8 40.1.929650.3.579.2.727 1946 Unknown [id number] 2.16.8 40.1.412088.3.579.2.727 1946 Unknown [id number] 2.16.8 40.1.526907.3.579.2.727 1946 Unknown [id number] 2.16.8 40.1.083947.3.579.2.727 1946 Unknown [id number] 2.16.8 40.1.219303.3.579.2.727 1946 Unknown [id number] 2.16.8 40.1.648576.3.579.2.727 Unknown [id number] 2.16.8 40.1.335198.3.579.2.531 Unknown [id number] 2.16.8 40.1.487978.3.579.2.531 Unknown [id number] 2.16.8 40.1.270180.3.579.2.531 Unknown [id number] 2.16.8 40.1.880781.3.579.2.531 Social History Date Type Detail Facility Sex Assigned At [facility] Start: 1945 Sex Assigned At Female F [facility] Start: 05-30-2024 End: 04-10-2025 Tobacco smoking status Ex-smoker (finding) [facility] Start: 11-03-2024 End: 04-23-2025 Tobacco smoking status NHIS Never smoked tobacco (finding) [facility] Start: 12-03-2009 End: 11-03-2024 Sex Female (finding) [facility] Tobacco smoking status Never [facility] Sexual Orientation [facility] Medical Equipment Procedure Code Equipment Code [...] Diagnostic (Accu-Chek Guide Test Strips) strip Start: 03-14-2025 Blood Sugar Diagnostic (Accu-Chek Guide Test Strips) strip Start: 12-22-2023 End: 03-14-2025 Blood Sugar Diagnostic (Onetouch Verio Test Strips) strip Start: 12-21-2023 End: 12-22-2023 Functional Status Date Assessment Result Facility 01-02-2025 Functional Status N/A [facility] 05-30-2024 Functional Status N/A [facility] Clinical Notes 10-19-2022 to 04-10-2025 Note Date & Type Note Facility 04-10-2025 Hospital Discharg e instructions Patient Education 04/10/2025 09:39:07 Atrophic Vaginitis Atrophic Vaginitis Atrophic vaginitis is [...] symptoms are. Treatment may include: Using an dkhc-oxd-drbnrql vaginal lubricant before sex. Using a long-acting [...] Follow these instructions at home: Medicines Take wpdo-ezq-ewmmwts and prescription medicines only as told by your health care provider. Do not use herbal or alternative medicines unless your health care provider says that you can. Use ncod-sdh-qinzklt creams, lubricants, or moisturizers for dryness only [...] provider. Document Revised: 02/05/2021 Document Reviewed: 02/05/2021 [employer] Patient Education 2023 [employer]. 04/10/2025 09:39:03 Urinary Incontinence Urinary Incontinence Urinary incontinence refers [...] (electrical nerve stimulation). ?For women, using a certified medical transcriptionist to prevent urine leaks. This is a [...] right after experiencing incontinence. General instructions Take ksxo-mfs-jnuxulg and prescription medicines only as told by [...] important. Where to find more information [employer] [place] of Diabetes and Digestive and Kidney Diseases: www.niddk.nih.gov [employer]: www.urologyhealth.org Contact a health care [...] provider. Document Revised: 03/13/2021 Document Reviewed: 03/13/2021 [employer] Patient Education 2023 [employer]. Follow Up Care 01/02/2025 15:33:39 With:Genevieve Jernigan PA-C, URL Address: When: Unknown Comments:F/U in 6 months [facility] 04-10-2025 Note Patient Education Obstetrics and Gynecology Atrophic [...] are. Treatment may include: ??? Using an jzsw-yno-myeezce vaginal lubricant before sex. ??? Using a [...] these instructions at home: Medicines ??? Take hyvj-kdd-iwocsxy and prescription medicines only as told by your health care provider. ??? Do not use herbal or alternative medicines unless your health care provider says that you can. ??? Use lfuu-xtq-raxujar creams, lubricants, or moisturizers for dryness only [...] provider. Document Revised: 02/05/2021 Document Reviewed: 02/05/2021 [employer] Patient Education ? 2023 [employer]. Urology Urinary Incontinence Urinary incontinence refers to a condition in which a person is unable to control where and when to pass urine. A person with this condition will urinate involuntarily. This means that the person urinates when he or she does not mean to. What are the causes? (Inserted Image. Unable to dis (more content not included)... [facility] 03-12-2025 Hospital Discharg e instructions Patient Education [...] symptoms are. Treatment may include: Using an qmdj-jle-goetjcd vaginal lubricant before sex. Using a long-acting [...] Follow these instructions at home: Medicines Take uawz-fwl-qiiimlz and prescription medicines only as told by your health care provider. Do not use herbal or alternative medicines unless your health care provider says that you can. Use lpeu-mbu-oqjabip creams, lubricants, or moisturizers for dryness only [...] provider. Document Revised: 02/05/2021 Document Reviewed: 02/05/2021 [employer] Patient Education 2023 [employer]. Follow Up Care 03/12/2025 09:26:25 With:Genevieve Jernigan PA-C, URL Address: When: Unknown Comments:Appointment has already been scheduled [facility] 03-12-2025 Note Patient Education Obstetrics and Gynecology [...] are. Treatment may include: ??? Using an hpev-ppz-myriizg vaginal lubricant before sex. ??? Using a [...] these instructions at home: Medicines ??? Take tmru-cja-fakposq and prescription medicines only as told by your health care provider. ??? Do not use herbal or alternative medicines unless your health care provider says that you can. ??? Use ikgn-ehu-jpzxxqi creams, lubricants, or moisturizers for dryness only [...] provider. Document Revised: 02/05/2021 Document Reviewed: 02/05/2021 [employer] Patient Education ? 2023 [employer]. [facility] 01-28-2025 Evaluation note Diagnosis Onset Date Resolution ASHD (arteriosclerotic heart disease) acute January 28, [...] 2:29pm Fracture of radial head, right, closed resolved February 05, 2025 12:35pm Diverticulitis large intestine acute February 07, 2025 9:44am Type 2 diabetes mellitus with hyperglycemia acute February 07 9:44am Contusion of knee, left acute S eptember 2024 1:32pm Contusion of shoulder, left acute April 23, 2025 1:32pm Essential hypertension acute Se ptember 2024 1:32pm Left knee pain acute April 23, 2025 1:32pm Orthostatic lightheadedness acute April 23, 2025 1:32pm Shoulder pain, left acute Septe mber 2024 1:32pm [facility] Work Phone: 1(361) 393-897105-14-2025 Hospital Discharge instructions Patient Education 01/02/2025 15:59:05 Overactive Bladder, [...] You may also have very sensitive muscles thatmake your bladder squeeze too soon. This condition [...] your health care provider. General instructions Take rntj-eew-mimdihj and prescription medicines only as told by [...] provider. Document Revised: 04/27/2021 Document Reviewed: 04/27/2021 [employer] Patient Education 2023 [employer]. 01/02/2025 15:59:05 Urinary Incontinence Urinary Incontinence Urinary incontinence refers to a condition in which a person is unable to control where and when topass urine. A person with this condition will urinate involuntarily. This means that the person urinates when he or she does not mean to. What are the causes? This condition may be caused by: Medicines. Infections. Constipation. Overactive bladder muscles. Weak bladder muscles. Weak pelvic floor muscles. These muscles provide support for the bladder, intestine, and, in women,the uterus. Enlarged prostate in men. The prostate [...] a small amount, or constantly dribbling urine (overflowincontinence). Urinating because you cannot get to the [...] fiber include beans, whole grains, and fresh fruitsand vegetables. Behavioral changes, such as: ?Pelvic floor [...] (electrical nerve stimulation). ?For women, using a certified medical transcriptionist to prevent urine leaks. This is a small, tampon-like, disposabledevice that is inserted into the urethra. ?Injecting [...] right after experiencing incontinence. General instructions Take ckfh-qux-owpivuc and prescription medicines only as told by [...] important. Where to find more information [place] of Diabetes and Digestive and Kidney Diseases: www.niddk.nih.gov [employer]: www.urologyhealth.org Contact a health care [...] is unable to control where and when topass urine. This condition may be caused by medicines, infection, weak bladder muscles, weak pelvic floor muscles, enlargement of the prostate (in men), or surgery. Factors such as older age, obesity, and childbirth, menopause, neurological diseases, andchronic coughing may increase your risk for developing [...] provider. Document Revised: 03/13/2021 Document Reviewed: 03/13/2021 [employer] Patient Education 2023 [employer] Follow Up Care 12/14/2024 11:11:36 With:Genevieve Jernigan PA-C, MARIKAL Address: When: Unknown Comments:3 month f/u w/ [facility] 2025 NotePatient Education Obstetrics and Gynecology Overactive Bladder, Adult [...] You may also have very sensitive muscles thatmake your bladder squeeze too soon. This condition [...] health care provider. General instructions ??? Take ltdu-uwu-woufysi and prescription medicines only as told by your health care provider. ??? If you were prescribed an antibiotic medicine, take it as told by your health care provider. Donot stop taking the antibiotic even if you start to feel better. ??? Use any implants or pessary as told by your health care provider. ??? If needed, wear pads to absorb urine leakage. ??? Keep a log to track how much and when you drink, and whe (more content not included)...[facility]04-22-2025 Evaluation note* Diagnosis Onset Date Resolution Status Admit Date Fracture of radial head, rig ht, closed acute December 11, 2024 1:17pm ASHD (arteriosclerotic heart disease) acute January 28, 2025 2:29pm Cigarette nicotine dependenc e in remission acute January 28, 2025 2:29pm Encounter for screening mamm ogram for malignant neoplasm of breast acute January 28, 2025 2:29pm Essential hypertension acute 2024 2:29pm Lumbar spondylosis acute January 282024 2:29pm DUSTIN (obstructive sleep apnea) acute January 28, 2025 2:29pm Pulmonary nodule acute January 2:29pm Pure hypercholesterolemia acute January 28, 2025 2:29pm Restrictive lung disease acute January 28, 2025 2:29pm Type 2 diabetes mellitus wit h hyperglycemia acute January 28, 2025 2:29pm Medicare annual wellness vis it, subsequent noneactive January 28, 2025 2:29pm Fracture of radial head, rig ht, closed acute February 05, 2025 12:35pm Diverticulitis large intestine acute February 07, 2025 9:44am Type 2 diabetes mellitus wit h hyperglycemia acute February 07, 2025 9:44am [facility] Work Phone: 1(252) 994-449303-17-2025 Evaluation note* Diagnosis Onset Date Resolution Status Admit Date ASHD (arteriosclerotic heart disease) acute November 05, 2024 2:07pm Essential hypertension acute [facility] 2024 2:07pm Fracture of radial head, [...] ht, closed acute December 11, 2024 1:17pm [facility] Work Phone: 1(894) 492-172303-17-2025 Evaluation note* Diagnosis Onset Date Resolution Status Admit Date ASHD (arteriosclerotic heart disease) acute November 05, 2024 2:07pm Essential hypertension acute [facility] 2024 2:07pm Fracture of radial head, [...] it, subsequent noneactive January 28, 2025 2:29pm [facility] Work Phone: 1(550) 242-687112-23-2024 Evaluation note* Diagnosis Onset Date Resolution Status Admit Date Acute vasomotor rhinitis acute August 13, 2024 10:18am Bradycardia acute July 10:18am Cerumen impaction acute Dece[facility] r 2023 10:18am [facility] Work Phone: 1(246) 647-716712-23-2024 Evaluation note* Diagnosis Onset Date Resolution Status Admit Date Acute vasomotor rhinitis acute August 13, 2024 10:18am Bradycardia acute July 10:18am Cerumen impaction acute [facility] 2023 10:18am ASHD (arteriosclerotic heart disease) acute November 05, 2024 2:07pm Essential hypertension acute [facility] 2024 2:07pm Interstitial lung disease acute November 05, 2024 2:07pm DUSTIN (obstructive sleep apnea) acute November 05, 2024 2:07pm Pulmonary nodule acute November 052024 2:07pm Restrictive lung disease acute November 05, 2024 2:07pm Type 2 diabetes mellitus wit h hyperglycemia acute November 05, 2024 2:07pm [facility] Work Phone: 1(959) 448-451312-23-2024 Evaluation note* Diagnosis Onset Date Resolution Status Admit Date Acute vasomotor rhinitis acute August 13, 2024 10:18am Bradycardia acute July 10:18am Cerumen impaction acute [facility] 2023 10:18am ASHD (arteriosclerotic heart disease) acute November 05, 2024 2:07pm Essential hypertension acute [facility] 2024 2:07pm Fracture of radial head, [...] ht, closed acute November 06, 2024 12:00pm [facility] Work Phone: 1(308) 972-859910-09-2024 Evaluation + Plan note Diagnostic Tests Pending * Urine Cytology ([facility]) 05/30/24 [facility] 10-09-2024 Hospital Discharge instructions Patient Education 05/30/2024 [...] Follow these instructions at home: Medicines Take bczh-udk-mtuprzr and prescription medicines only as told by [...] or the blood stops without treatment. Take sezl-sps-bmvobuv and prescription medicines only as told by your health care provider. Drink enough fluid to keep your urine pale yellow. This information is not intended to replace advice given to you by your health care provider. Make sure you discuss any questions you have with your health care provider. Document Revised: 04/08/2021 Document Reviewed: 04/08/2021 [employer] Patient Education 2023 [employer]. 05/30/2024 09:04:34 Cystoscopy Cystoscopy Cystoscopy is a [...] including vitamins, herbs, eye drops, creams, and qahq-ymk-olzwhhx medicines. Any problems you or family members [...] provider tells you to take them. Taking ivns-ves-faqjtjp medicines, vitamins, herbs, and supplements. Tests You [...] Follow these instructions at home: Medicines Take dksb-yrq-kvbmlnf and prescription medicines only as told by [...] provider. Document Revised: 04/21/2022 Document Reviewed: 03/20/2021 [employer] Patient Education 2023 [employer]. Follow Up Care 2024 11:11:22 With:Evgeny CHO, SHIN Bejarano, URO Address: [address], [place] [phone] When: Unknown Comments:sched cysto [facility] 10-09-2024 NotePatient Education Urology Hematuria, Adult [...] these instructions at home: Medicines ? Take hvxf-mqh-hsirika and prescription medicines only as told by [...] the blood stops without treatment. ? Take dczx-rbq-rovvvgc and prescription medicines only as told by your health care provider. ? Drink enough fluid to keep your urine pale yellow. This information is not intended to replace advice given to you by your health care provider. Make sure you discuss any questions you have with your health care provider. Document Revised: 04/08/2021 Document Reviewed: 04/08/2021 [employer] Patient Education ? 2023 [employer] Inc[employer] Cystoscopy Cystoscopy is a procedure that [...] drops, creams, and over-th (more content not included)...[facility]02-23-2024 Evaluation note* Encounter Date Diagnosis Assessment Notes Treatment Notes Treatment Clinical Notes Sep, Acute bilateral thoracic back pain (ICD-10 - M54.6) [facility] Other 12-19-2023 Evaluation note* Encounter Date Diagnosis [...] use, the patient reduces the risk for OH, CVA, HTN, cardiac dysrhythmias and sudden cardiac [...] smoker would recommend repeat in 12 months. [facility] Other 12-14-2023 Evaluation note* Encounter Date Diagnosis Assessment Notes Treatment Notes Treatment Clinical Notes Jul, Restrictive lung disease (ICD-10 - J98.4) [facility] Other 11-28-2023 Evaluation note* Encounter Date Diagnosis [...] Send for COVID PCR - results negative [facility] Other 10-25-2023 Evaluation note* Encounter Date Diagnosis Assessment Notes Treatment Notes Treatment Clinical Notes May, Age-related osteoporosis without current pathological fracture (ICD-10 - M81.0) [facility] Other 10-19-2023 Evaluation note* Encounter Date Diagnosis Assessment Notes Treatment Notes Treatment Clinical Notes May, Acute bilateral thoracic back pain (ICD-10 - M54.6) [facility] Other 10-18-2023 Evaluation note* Encounter Date Diagnosis [...] index [BMI] 34.0-34.9, adult (ICD-10 - Z68.34) [facility] Other 10-13-2023 Evaluation note* Encounter Date Diagnosis Assessment Notes Treatment Notes Treatment Clinical Notes May, Simple chronic bronchitis (ICD-10 - J41.0) Continue LABA/ICS Use DIMITRI as needed for cough/wheezing. Control allergies and GERD symptoms. Weight loss May, Restrictive lung disease (ICD-10 - J98.4) Weight loss important. Avoid exposure to dust, smoke and allergens. Continue treatment for DUSTIN Refer to Delivery Agent for evaluation and treatment May, DUSTIN (obstructive sle ep apnea) (ICD-10 - G47.33) This patient is aware of the benefits associated with DUSTIN: With continued use, the patient reduces the risk for OH, CVA, HTN, cardiac dysrhythmias and sudden cardiac [...] continue exercise to achieve/maintain a normal BMI. [facility] Other 08-31-2023 Evaluation note* Encounter Date Diagnosis Assessment Notes Treatment Notes Treatment Clinical Notes Mar, Chronic bronchitis, simple (ICD-10 - J41.0) [facility] Other 08-30-2023 Evaluation note* Encounter Date Diagnosis Assessment Notes Treatment Notes Treatment Clinical Notes Mar, Chronic bronchitis, simple (ICD-10 - J41.0) [facility] Other 08-30-2023 Evaluation note* Encounter Date Diagnosis Assessment Notes Treatment Notes Treatment Clinical Notes Mar, Chronic bronchitis, simple (ICD-10 - J41.0) Mar, DOUGLAS (dyspnea on exertion) (ICD-10 - R06.09) [facility] Other 08-28-2023 Evaluation note* Encounter Date Diagnosis Assessment Notes Treatment Notes Treatment Clinical Notes Mar, Pulmonary nodule (ICD-10 - R91.1) [facility] Other 08-22-2023 Evaluation note* Encounter Date Diagnosis Assessment Notes Treatment Notes Treatment Clinical Notes Mar, Pulmonary nodule (ICD-10 - R91.1) [facility] Other 08-22-2023 Evaluation note* Encounter Date Diagnosis [...] [BMI ] 34.0-34.9, adult (ICD-10 - Z68.34) [facility] Other 08-17-2023 Evaluation note* Encounter Date Diagnosis Assessment Notes Treatment Notes Treatment Clinical Notes Mar, Acute bilateral low back pain without sciatica (ICD-10 - M54.50) [facility] Other 08-08-2023 Evaluation note* Encounter Date Diagnosis [...] 3 mo as needed. Continue weight loss [facility] Other 04-09-2023 Evaluation note* Encounter Date Diagnosis Assessment Notes Treatment Notes Treatment Clinical Notes Nov, Obstructive sleep apnea (adult) (pediatric) (ICD-10 - G47.33) AHI 34, CPAP14, [facility] Other 04-06-2023 Evaluation note* Encounter Date Diagnosis [...] use, the patient reduces the risk for OH, CVA, HTN, cardiac dysrhythmias and sudden cardiac [...] High risk medication use (ICD-10 - Z79.899) [facility] Other 03-13-2023 Evaluation note* Encounter Date Diagnosis Assessment Notes Treatment Notes Treatment Clinical Notes Oct, Acute non-recurrent maxillary sinusitis (ICD-10 - J01.00) Instructed to use Flonase NS for congestion, Tessalon for cough, Tylenol for pain and fever. Oct, Acute cough (ICD-10 - R05.1) Head upright, push fluids and Tessalon perles [facility] Other 02-28-2023 Evaluation note* Encounter Date Diagnosis Assessment Notes Treatment Notes Treatment Clinical Notes Sep, Pure hypercholestero lemia (ICD-10 - E78.00) [facility] Other Evaluation + Plan note Future Appointments Appointment Date:04/03/2025 12:30:00 PM Scheduled Provider:Genevieve Jernigan PA-C Location:[facility] Appointment Type:URO Office Visit [facility] evaluation + Plan note Future Appointments Appointment Date:04/10/2025 08:30:00 AM Scheduled Provider:Genevieve Jernigan PA-C Location:[facility] Appointment Type:URO Office Visit [facility] Evaluation noteNo InformationNort Factor 14 Other Evaluation noteNo assessment information available [facility] Work Phone: [employer] general Narrative - Reported* Type Description Date Medical History Essential hypertension Medical History ASHD (arteriosclerotic heart dis ease) Medical History Chronic venous insufficiency Medical History Chronic bronchitis, simple Medical History High cholesterol Medical History Lumbar spondylosis Medical History Obesity (BMI 30-39.9) Medical History Obstructive sleep apnea (adult) (pediatric) [facility] Other His[facility] general Narrative - Reported* Type Description Date [...] COLONSCOPY 2018 Hospitalization History SEE SURGICAL HX [facility] Other Hiswses general Narrative - Reported* Type Description Date [...] COLONSCOPY 2018 Hospitalization History SEE SURGICAL HX [facility] Other Hiscmvn general Narrative - Reported* Type Description Date [...] History TONSILLECTOMY Surgical History D&C Surgical History [facility] Surgical History CYSTOSCOPY Surgical History URETHRAL DILATION 2005 Surgical History COLONSCOPY 2018 Hospitalization History SEE SURGICAL HX [facility] Other Hospital course Narrative No data available for this section [facility] Hospital Discharge instructions No data available for this section [facility] Progress note No data available for this section [facility] reason for referral (narrative)* Reason Referral for COPD an d RLD Diagnosis 1 Restrictive lung dis ease (J98.4) Diagnosis 2 Chronic bronchitis, simple (J41.0) Diagnosis 3 Pulmonary nodule (R9 1.1) Diagnosis 4 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 Obesity may contribute to respiratory complaints. Clinical Notes Labs, CT, PFT [facility] [employer] Other Reason for referral (narrative)* Reason Referral for persist ent thoracolumbar spine pain Diagnosis 1 Acute bilateral thor acic back pain (M54.6) Diagnosis 2 Lumbar spondylosis ( M47.816) Diagnosis 3 Age-related osteopor osis without current pathological fracture (M81.0) Referral Organization [facility] Referring Provider First Name Edwin Referring Provider Last Name Marques Referring Provider Specialty Internal Pa dicine Referred Organization [facility] Referred Provider Freddie Cotton Referred Address [address], [place],[address] Referred Provider Specialty Pain Medicin e Referral Priority Routine General Notes Patient w/ known deg enerative arthritis of the spine w/ persistent moderate to severe thoracolumbar spine pain w/ paraspinal muscle spasms. Completed PT w/ some temporary improvement. Stretching, Tylenol and Tramadol helping w/ the pain. Refer for alternative treatment for persistent back pain. [facility] Other Reason for referral (narrative)No reason for referral [facility]: Summary Purpose Family History No Family History Records Found Relationship Condition Age at Onset Recorded Date/T mervin father Unknown mother Unknown Advance Directives No Advanced Directives Records Found Advance Directive Response Recorded Date/ Time Advance Directives No April 11:03am Advance Directive Response Recorded Date/ Time Advance Directives No April 10:27am Chief Complaint and Reason for Visit Chief [...] 13, 2024 10:18am ASHD (arteriosclerotic heart disease) [facility] 2024 2:07pm Essential hypertension November 05, [...] of right November 06, 2024 8:28am [place] [facility] [place] [place] November 06, 2024 12:00pm Reason for Visit Admit Date Acute vasomotor rhinitis August 13, 2024 10:18am Bradycardia August 13, 2024 10:18am Cerumen impaction August 13, 2024 10:18am ASHD (arteriosclerotic heart disease) [facility] 2024 2:07pm Essential hypertension November 05, [...] of right November 06, 2024 8:28am [facility] [place] W[facility] November 06, 2024 12:00pm S52.124D - Nondisplaced fracture of head of right December 11, 2024 11:15am 5 WEEKS December 11, 2024 1:1 7pm Reason for Visit Admit Date ASHD (arteriosclerotic heart disease) [facility] 2024 2:07pm Essential hypertension November 05, 2024 2:07pm Fracture of radial head, right, closed M arch 2024 2:07pm Interstitial lung disease November 05 2:07pm DUSTIN (obstructive sleep apnea) October 2:07pm Pulmonary nodule November 05, 2024 2:0 7pm Restrictive lung disease November 05 2:07pm Type 2 diabetes mellitus with hyperglyce justin March 17th, 2025 2:07pm Fracture of radial head, right, closed M arch 2024 12:00pm Fracture of radial head, right, closed A pril 2024 1:17pm Chief Complaint Admit Date fall, right arm injury November 03, 2024 4:31pm 4 month f/u-HIGH RISK November 05, 2024 2 :07pm S52.124D - Nondisplaced fracture of head of right November 06, 2024 8:28am ER [facility] [place] [facility] WX November 06, 2024 12:00pm S52.124D - Nondisplaced fracture of head of right December 11, 2024 11:15am 5 WEEKS December 11, 2024 1:1 7pm Wellness-HIGH RISK January 28, 2025 2:29p m Reason for Visit Admit Date ASHD (arteriosclerotic heart disease) [facility] 2024 2:07pm Essential hypertension November 05, [...] pril 2024 1:17pm ASHD (arteriosclerotic heart disease) Karina ms 2024 2:29pm Cigarette nicotine dependence in [place] on January 28, 2025 2:29pm Encounter for [...] 28, 2025 2:29pm Medicare annual wellness visit, subseque nt January 28, 2025 2:29pm Chief Complaint [...] ne 2024 2:29pm Cigarette nicotine dependence in [facility] on January 28, 2025 2:29pm Encounter for [...] 28, 2025 2:29pm Medicare annual wellness visit, subseque nt January 28, 2025 2:29pm Fracture of radial head, right, closed J une 2024 12:35pm Diverticulitis large intestine January 9:44am Type 2 diabetes mellitus with hyperglyce justin February 07, 2025 9:44am Chief Complaint Admit Date Wellness-HIGH RISK January 28, 2025 2:29p m S52.124D - Nondisplaced fracture of head of right February 05, 2025 8:43am 8 wk recheck February 05, 2025 12:3 5pm Diverticulitis February 07, 2025 9:44 am UA, blood in urine, spasm, low output Ju ly 2024 11:48am fall April 23, 2025 1:32pm Reason for Visit Admit Date ASHD (arteriosclerotic heart disease) Ju ne 2024 [...] 28, 2025 2:29pm Medicare annual wellness visit, subseque nt January 28, 2025 2:29pm Fracture of radial head, right, closed J une 2024 12:35pm Diverticulitis large intestine January 9:44am Type 2 diabetes mellitus with hyperglyce justin February 07, 2025 9:44am Contusion of knee, left April 23, 2 025 1:32pm Contusion of shoulder, left April 2n d2024 1:32pm Essential hypertension April 23 1:32pm Left knee pain April 23, 2025 1:32pm Orthostatic lightheadedness April 2n d2024 1:32pm Shoulder pain, left April 23, 2025 1:32pm Additional Source Comments REASON FOR VISIT (unrecogniz ed section and content) Medication QuestionCongestio n [phone] ATBwellnessNo InformationCPAP Equipment?4 month follow upBack SpasmsNo InformationXR resultsreferral for PTNo InformationNo InformationNo InformationCT resultsDifferent InhalerPFT resultstesting resultsback painMedicationNo InformationDexa [id number] cold/sore throatNo Information4 month Follow upHR-AtenololUpdateNo Information INFORMATION SOURCE (unrecogn ized section and content) DATE CREATED AUTHOR 01/01/2023 [facility] DATE CREATED AUTHOR AUTHOR'S ORGANIZ ATION 08/05/2023 [facility] DATE CREATED AUTHOR AUTHOR'S ORGANIZ ATION 04/05/2024 [facility] DATE CREATED AUTHOR AUTHOR'S ORGANIZ ATION 06/06/2024 [facility] DATE CREATED AUTHOR AUTHOR'S ORGANIZ ATION 03/04/2025 [facility] DATE CREATED AUTHOR AUTHOR'S ORGANIZ ATION 03/15/2025 [facility] DATE CREATED AUTHOR AUTHOR'S ORGANIZ ATION 03/20/2025 [facility] DATE CREATED AUTHOR AUTHOR'S ORGANIZ ATION 03/21/2025 [facility] DATE CREATED AUTHOR AUTHOR'S ORGANIZ ATION 03/22/2025 [facility] DATE CREATED AUTHOR AUTHOR'S ORGANIZ ATION 04/05/2025 [facility] DATE CREATED AUTHOR AUTHOR'S ORGANIZ ATION 04/11/2025 [facility] DATE CREATED AUTHOR AUTHOR'S ORGANIZ ATION 04/26/2025 [facility] DATE CREATED AUTHOR AUTHOR'S ORGANIZ ATION 04/29/2025 [facility] Care Teams (unrecognized sec tion and [...] Status: Inactive Member Role Status Dates Edwin Ball , DO Primary Care Provide r, Attending Provider Active Start: January 28, 2025 End: January 28, 2025 Kylee Moon [facility] Song Lyricist Active St art: January 28, 2025 End: January 28, 2025 Team Status: Active Member Role Status Dates Edwin Mohan DO Primary Care Provide r, Attending Provider Active Start: September 29, 2024 Team Status: Active Member Role Status Dates Edwin Mohan DO Primary Care Provider Active Start: December 11, 2024 Wilfred Orozco , DO Attending Provider Active St art: December [...] Active Start: November 06, 2024 Wilfred Orozco , DO Attending Provider Active St art: November 06, 2024 Team Status: Inactive Member Role Status Dates Edwin Mohan DO Primary Care Provider Active Start: January 28, 2025 End: January 28, 2025 Edwin Mohan , DO Attending Provider Active Sta rt: January 28, 2025 End: January 28, 2025 Kylee Moon [facility] Song Lyricist Active St art: January 28, 2025 End: January 28, 2025 Team Status: Inactive Member Role Status Fatuma Mohan DO Primary Care Provider Active Start: February 05, 2025 End: February 05, 2025 Wilfred Orozco , DO Attending Provider Active St art: February 05, 2025 End: February 05, 2025 Team Status: Inactive Member Role Status Dates Edwin Mohan DO Primary Care Provider Active Start: February 07, 2025 End: February 07, 2025 Edwin Mohan , DO Attending Provider Active Sta rt: February 07, 2025 End: February 07, 2025 Team Status: Inactive Member Role Status Dates Edwin Mohan DO Primary Care Provider Active Start: February 28, 2025 End: February 28, 2025 Edwin Mohan , DO Attending Provider Active Sta rt: February 28, 2025 End: February 28, 2025 Team Status: Active Member Role Status Dates Edwin Mohan DO Primary Care Provider Active Start: April 05, 2025 Edwin Mohan , DO Attending Provider Active Sta rt: April 05, 2025 Team Status: Inactive Member Role Status Dates Edwin Mohan DO Primary Care Provider Active Start: April 23, 2025 End: April 23, 2025 Edwin Mohan DO Attending Provider Active Sta rt: April 23, 2025 End: April 23, 2025 Goals (unrecognized section and content) Goals [...] BE BASED ON THE PRIMARY CLINICAL RECORDS. [facility] [employer] provides no warranty or guarantee of the accuracy or completeness of information in this document.
== END 2025-05-02 14:11 | disposition home or self-care (01) ==
LOC: RAD 14:10
PROVIDERS: PCP Internal Medicine; Visit Provider Internal Medicine
DX: M47.816 Spondylosis without myelopathy or radiculopathy, lumbar region (principal); M54.9 Dorsalgia, unspecified
CPT/HCPCS: 72100

== ENCOUNTER 2025-05-06 16:09 | Outpatient (RCR) | payer MEDICARE, SELFPAY | END 2025-07-05 09:54 | disposition home or self-care (01) | LOC: PT 16:09 | PROVIDERS: PCP Internal Medicine; Visit Provider Internal Medicine | DX: M25.562 Pain in left knee (principal); M54.59 Other low back pain | CPT/HCPCS: 97010; 97110; 97112; 97140; 97162; 97530; G0283 ==

== ENCOUNTER 2025-06-20 13:59 | Outpatient (OUT) | payer MEDICARE, SELFPAY ==
--- OUTSIDE RECORDS SUMMARY | 2025-06-07 11:00 | XMS_ITS | Continuity of Care Document ---
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 Name Role Phone MarquesEdwin Primary Care Provider Edwin Mohan DO Attending Provider Care Teams Patient Care Team Team Status: Active Member Role/Relationship Status Dates Edwin Mohan DO Primary Care Provider Active Visit Care Team Team Status: Active Member Role/Relationship Status Dates Edwin Mohan DO Primary Care Provider Active Start: April 05, 2025 Edwin Mohan DOAttending ProviderActiveStart: April 05, 2025 Visit Care Team Team Status: Inactive Member Role/Relationship Status Dates Edwin Mohan DO Primary Care Provider Active Start: April 23, 2025 End: April 23landy Mohan DOAttending ProviderActiveStart: April 23, 2025 End: April 23, 2025 Visit Care Team Team Status: Inactive Member Role/Relationship Status Dates Edwin Mohan DO Primary Care Provider Active Start: May 07, 2025 End: May 07landy Mohan DOAttending ProviderActiveStart: May 07, 2025 End: May 07, 2025 Visit Care Team Team Status: Inactive Member Role/Relationship Status Dates Edwin Mohan DO Primary Care Provider Active Start: May 10, 2025 End: May 10landy Mohan DOAttending ProviderActiveStart: May 10, 2025 End: May 10, 2025 Patient Care Team Team Status: Inactive Member Role/Relationship Status Dates Edwin Mohan DO Primary Care Provider Active Start: June 07, 2025 End: June 07landy Mohan , DOAttending ProviderActiveStart: June 07, 2025 End: June 07, 2025 Chief Complaint and Reason for Visit Chief Complaint Admit Date fall April 23, 2025 1:32pm BP Concerns May 07, 2025 2:57pm Back Pain May 10, 2025 1:56pm 4 mo f/u June 07, 2025 1 :22pm Reason for Visit Admit Date Contusion of knee, left April 23 025 1:32pm Contusion of shoulder, left April d2024 1:32pm Essential hypertension April 23 1:32pm Exercise hypoxemia April 23, 2025 1:32pm Interstitial lung disease April 23, 2025 1:32pm Left knee pain April 23, 2025 1:32pm Orthostatic lightheadedness April d2024 1:32pm Shoulder pain, left April 23, 2025 1:32pm Type 2 diabetes mellitus with hyperglyce jutsin April 23, 2025 1:32pm Essential hypertension May 07 2 025 2:57pm Obesity May 07, 2025 2:57pm Orthostatic lightheadedness May 072024 2:57pm Type 2 diabetes mellitus with hyperglyce justin May 07, 2025 2:57pm Compression fracture of L1 lumbar verteb ra May 10, 2025 1:56pm Low back pain May 10, 2025 1:56pm Lumbar spondylosis May 10, 2025 1:56pm ASHD (arteriosclerotic heart disease) Oc tober 2024 1:22pm Cigarette nicotine dependence in [facility] on June 07, 2025 1:22pm Essential hypertension June 07 1:22pm Lumbar spondylosis June 07, 2025 1 :22pm DUSTIN (obstructive sleep apnea) June 072024 1:22pm Pulmonary nodule June 07, 2025 1 :22pm Pure hypercholesterolemia June 07, 2025 1:22pm Restrictive lung disease June 07 025 1:22pm Type 2 diabetes mellitus with hyperglyce justin June 07, 2025 1:22pm Allergies, Adverse Reactions, Alerts Allergen Type Severity Reaction Last Updated Verified Status Cephalosporins Allergy Unknown Unknown Reaction Octo juan 2024 1:25pm Yes Active ciprofloxacin Allergy Unknown Unknown Reaction Octob er 2024 1:25pm Yes Active Social History Smoking Status Status Start Date End Date Date of Observa tion Never smoked tobacco (finding) May 10, 2025 1:55pm Observation Status Observation Response Date of Response Legal Sex Female (finding) Sex Assigned At BirthFemaleSeptember 1944 Family History Relationship Condition Age at Onset Recorded Date/T mervin father Unknown motherDeceasedUnknown Problems Active Problems Problem Diagnosis/Recorded Date Onset Date Status C omments Exercise hypoxemia April 22, 2025 6:42pm Unknown A ctive Orthostatic lightheadednessSeptember 2024 2:07pmUnknownActiveCompression fracture of L1 lumbar vertebraSeptember 2024 4:01pmUnknownActive Gastroesophageal reflux disease with esophagitis without hemorrhageMarch 2023 11:47amUnknownActiveOSA (obstructive sleep apnea)October 31, 2023 11:47am UnknownActivePrimary osteoarthritis of left kneeMarch 2023 11:47amUnknown ActiveType 2 diabetes mellitus with hyperglycemiaMarch 2023 1:13pmUnknown ActiveCigarette nicotine dependence in remissionMarch 2023 11:47amUnknown ActiveEncounter for screening mammogram for malignant neoplasm of breastApril 2023 12:33pmUnknownActiveLow back painSeptember 2024 4:01pmUnknown ActiveOsteoporosisMarch 2023 11:47amUnknownActiveBack painSeptember 2024 9:59pmUnknownActiveBradycardiaDecember 2023 9:37pmUnknownActivePure hypercholesterolemiaMarch 2023 11:47amUnknownActivePulmonary noduleMarch 2023 11:47amUnknownActiveCT chest: 4mm nodule - 03/2023, bnormal diffusion capacity determined by pulmonary function testJune 2024 9:41pm UnknownActiveEssential hypertensionMarch 2023 11:47amUnknownActive Restrictive lung diseaseMarch 2023 11:47amUnknownActiveRecurrent major depressive disorder, in full remissionMarch 2023 11:47amUnknownActiveLeft knee painSeptember 2024 2:06pmUnknownActiveShoulder pain, leftSeptember 2024 2:06pmUnknownActiveChronic venous insufficiencyMarch 2023 11:47amUnknownActiveDiverticulitis large intestineJune 2024 10:35amUnknown ActiveInterstitial lung diseaseOctober 2023 8:59pmUnknownActiveLumbar spondylosisFebruary 2023 5:28pmUnknownActiveObesitySeptember 2024 9:52pmUnknownActiveASHD (arteriosclerotic heart disease)October 31, 2023 11:47am UnknownActiveEcho: LVEF 65%, LAE, dilated RV w/ normal function, RVSP 64 - 8/ontusion of knee, leftSeptember 2024 2:06pmUnknownActiveContusion of shoulder, leftSeptember 2024 2:06pmUnknownActiveInactive/Resolved Problems Problem Diagnosis/Recorded Date Onset Date Status C omments Elbow fracture November 03, 2024 5:32pm Unknown Resolved Gross hematuriaAugust 2023 1:59pmUnknownResolvedFracture of radial head, right, closedMarch 2024 9:54pmUnknownResolved Medications Medication Status Dose Units Route Directions Qty Days Refills S tart Date Stop Date End Date Reason(s) Instructions Adherence Tramadol 50 mg tablet Discontinued 50 MG PO Every 6 hours a s needed for pain 30 7 0 October 06, 2023 1:00am June 20, 2024 8:52pmSpondylosis of lumbar spine Spondylosis without myelopathy or radiculopathy, lumbar regionAtorvastatin 20 mg fbhusqSdlaizytcgdf41NOVWXqibr ivjynac74641Ryzoknod 2023 1:00amDecember 2023 7:22pmAmoxicillin-Pot Clavulanate 875-125 mg fdtxhiQwkvjprpuyjd9THGQH Every 12 cxqjq2603Wmjba 2023 9:36amMay 2023 9:57amBlood-Glucose Meter (Onetouch Verio Flex Meter) miscDiscontinued0.Roalm34Yhy2023 12:00am December 22, 2023 4:18pmType 2 diabetes mellitus with hyperglycemia Type 2 diabetes mellitus with hyperglycemiaAs directedBlood Sugar Diagnostic (Onetouch Verio Test Strips) stripDiscontinued0.Jimqp5235Pix2023 12:00am December 22, 2023 4:21pmType 2 diabetes mellitus with hyperglycemia Type 2 diabetes mellitus with hyperglycemiaAs directedBlood-Glucose Meter (Accu- Chek Guide Glucose Meter) miscActive0.Zzsgu85Zff2023 12:00amType 2 diabetes mellitus with hyperglycemia Type 2 diabetes mellitus with hyperglycemiaUse to test home BS qdBlood Sugar Diagnostic (Accu-Chek Guide Test Strips) stripDiscontinued0.Wjfcv8176Cxm2023 12:00amJuly 2024 4:10pmType 2 diabetes mellitus with hyperglycemia Type 2 diabetes mellitus with hyperglycemiaUse to test home BS qdPotassium Chloride (Klor-Con M20) 20 mEq tablet,ER particles/hixdlznbXgxbmjdspdok81VSXTQ Iccxg20731Rxi 8th, 2024 12:00amAugust 2023 6:47amPotassium Chloride (Klor- Con M20) 20 mEq tablet,ER particles/crystalsDiscontinued0.ROUTE.QAAGFTN933Wboxft 30th, 2024 6:47amJuly 2024 4:10pmTAKE 1 TABLET BY MOUTH EVERY DAY FOR 30 DAYSLosartan 100 mg tabletDiscontinued0.ROUTE.CYDZVEY523Zmfrcxcgr 2023 5:55pmOctober 2024 2:22pmTAKE 1 TABLET BY MOUTH EVERY DAY Hydrochlorothiazide 25 mg tabletDiscontinued0.ROUTE.MSNMJDH709Fncwctmrh 2023 5:55pmSeptember 2024 3:49pmTAKE 1 TABLET BY MOUTH EVERY DAY Escitalopram Oxalate 10 mg tabletDiscontinued0.ROUTE.WBUNCDC503Jlcmhoiq 2023 8:29amMay 2024 7:36amTAKE 1 TABLET BY MOUTH EVERY DAYAtenolol 25 mg tabletDiscontinued0.ROUTE.QXWYGAL401Bggbqcrk2023 11:53pmDecember 2023 6:30pmTAKE 1 TABLET BY MOUTH EVERY DAYAtenolol 25 mg xrnweyHjpexozohiqi11SI SWUwvgg67788Arbfayqk 17th, 2024 6:29pmDecember 2023 11:40amOmeprazole 40 mg capsule,delayed release(DR/EC)Active0.ROUTE.JPXBGQT895Vavobrgy2023 7:59amTAKE 1 CAPSULE BY MOUTH EVERY MORNING ON EMPTY STOMACH FOLLOWED IN 30 MINUTES BY BREAKFAST 90Complies with drug therapyAtorvastatin 20 mg tabletActive 0.ROUTE.SHPKOAY452Dealcfyl2023 7:22pmTAKE 1 TABLET BY MOUTH EVERY EVENING Complies with drug therapyBisoprolol Fumarate 5 mg tabletDiscontinued0.ROUTE .XJWEDEY650Dyaxvbf 2024 10:16amJanuary 2024 3:32pmTAKE 1/2 TABLET BY MOUTH ONCE A DAYBisoprolol Fumarate 5 mg tabletActive0.ROUTE.JWMILZP153Dvzhdci 2024 3:32pmTAKE 1/2 TABLET BY MOUTH ONCE A DAYComplies with drug therapy Tramadol 50 mg uqzpyeMuklhmikkavy64LGBKSgdoy as needed for abzg19932Nqtpn 2024 4:31pmSeptember 2024 3:49pmSpondylosis of lumbar spine Spondylosis without myelopathy or radiculopathy, lumbar regionEscitalopram Oxalate 10 mg tabletActive0.ROUTE.GBTBRCD832NbcJanuary 10, 2025 7:36amTAKE 1 TABLET BY MOUTH EVERY DAYComplies with drug therapyAmoxicillin-Pot Clavulanate 875-125 mg camkjqYrtisgvizutg5IZOPIOqsed 12 ksize8776Pdqm 2024 12:00amSeptember 2024 1:41pmPotassium Chloride 20 mEq tablet,ER particles/crystalsActive0 .ROUTE.XYHHRZW377Uhqc2024 4:09pmOn Hold: PRN TAKE 1 TABLET BY MOUTH EVERY DAY FOR 30 DAYSComplies with drug therapyBlood Sugar Diagnostic (Accu-Chek Guide Test Strips) stripActive0.ROUTE.FRSCTCM9034 March 14, 2025 4:09pmType 2 diabetes mellitus with hyperglycemia Type 2 diabetes mellitus with hyperglycemiaUSE TO TEST HOME BLOOD SUGAR DAILY*E11.65*Baclofen 10 mg tbdxltGpnnlcksmhwm77CSPXSerrx at dkwjjku77007Wufpmpi 2024 12:00amOctober 2024 5:22pmBaclofen 10 mg tabletDiscontinued0 .ROUTE.ZLMELAS615Rwsdpai 2024 5:22pmOctober 2024 2:44pmTAKE 1 TABLET BY MOUTH EVERY DAY AT BEDTIME FOR 15 DAYSOxycodone-Acetaminophen (Percocet) 5- 325 mg entoceQyheobfumzzx1WDLNBFfcrb 8 hours as needed for hsvq0683Kbqei 2024March 2024 4:30pmFracture of elbowAmoxicillin-Pot Clavulanate 875-125 mg pazoweFtmllbkcbtha2AHXHILjdos 12 odefe0236Uhyzh 2023 2:40pmMar 2023 9:36amFluconazole 150 mg hzbvtaGuhvcetghowe959IZQJPxwqm0641Yehms 2023 12:00amMay 2023 9:58amAlbuterol Sulfate 90 mcg/actuation HFA aerosol nqunjcvWwzjbmlqeqtd6UYERJYSOYPYQVSNmwsv 4 hours as neededMer[facility] 2023 12:00amMay 2023 10:27amUmeclidinium-Vilanterol (Anoro Ellipta) 62.5-25 mcg/actuation blister with hftzhqQfifxkmqmogg4XHYXNWRFTXKWNBqfgtGrgjx 2023 12:00amMay 2023 9:58amAtenolol 25 mg moksjkQnrtneetptqm00.5MGPODailyMercy Memorial Hospital 2023 12:00amDecember 2023 11:53pmBenzonatate 200 mg capsule Btttncqyfjuy316VJWJEsavh times dailyMar 2023 12:00amMarch 2024 2:09pmHydrochlorothiazide 25 mg vjznvfJtkcdahqgeci24PIMNCrubvCnqxx 2023 12:00amSeptember 2023 5:55pmLoratadine 10 mg rrvoimGpvzgf39UEWDSiqtvMhmvn 2023 12:00amComplies with drug therapyLosartan 100 mg tabletDiscontinued 100MGPODailyMercy Memorial Hospital 2023 12:00amSeptember 2023 5:55pmOmeprazole 40 mg capsule,delayed release(DR/EC)Upnboxbqvruv70KWRFOsditUmgot 2023 12:00am August 14, 2024 8:00amOxybutynin Chloride 10 mg tablet extended release 24hr Jtkbfnoxwkbu90AORIEzclsWcrvc 2023 12:00amMa2023 10:19am Rosuvastatin 5 mg hpxfsyYvvdwj0UHWGLejri eveningMercy Memorial Hospital 2023 12:00amComplies with drug therapyTolterodine 2 mg capsule,extended release 95xbCxgsmgzlwivi2HWQP DailyMercy Memorial Hospital 2023 12:00amMa2023 10:19amFluticasone Propion- Salmeterol 250-50 mcg/dose blister with mivnnqIistgkbojqbe9EKTITXAKEJZMUSdqui dailyMercy Memorial Hospital 2023 12:00amMay 2023 9:58amAmoxicillin-Pot Clavulanate 875-125 mg bkwcspUvdrhuguibiq5NGIAJZnowk 12 wkqvr7810Gfwzs 2023 12:00am November 08, 2023 2:41pmEscitalopram Oxalate 10 mg orsfgnHarekddfucqe61SBSNVhxpm 15695Nsfd 2023 12:00amDecemount graham [facility] 2023 8:29amTramadol 50 mg tablet Qzaucjxpsacl37ZZJWAyosk as needed for iajx76781Twio 2023 3:35pmMercy Memorial Hospital 2024 4:32pmSpondylosis of lumbar spine Spondylosis without myelopathy or radiculopathy, lumbar regionNitrofurantoin Monohyd/M-Cryst (Macrobid) 100 mg msutxmuZpazuetfbeun022UQJKRexbb vjmko5787 April 20, 2024 12:00amDecemount graham regional medical center 2023 5:55pmmust administer with a meal/foodAtenolol 25 mg bqibkeVgffdsfnpgkb68.7MZDMXgfgc80938Dhptwvdb 2023 11:40amDecember 2023 11:49amBisoprolol Fumarate 5 mg tabletDiscontinued2.5 ETQBAyshx57869Bgwboasf 2023 1:00amJanuary 2024 10:16amBisoprolol Fumarate 5 mg tabletDiscontinued2.8SQIBKxxdd033Cujhimby 2023 1:00am August 13, 2024 11:50amAlbuterol Sulfate 90 mcg/actuation HFA aerosol gbllkbpRrwwml6TBIVOTZUQVXAEJKvjse 4 hours as needed for shortness of breath or wheezing8.5302Dmber 2023 12:13pmComplies with drug therapy Hydrochlorothiazide 25 mg gttrsjBbaarh79KXOZNwffo as needed for leg rvqvjarw2964 0September 2024 3:33pmOn Hold: PRNComplies with drug therapyTramadol 50 mg fcesbaXmjord92QEBHKdozi as needed for xawn46033Gdeucadiy 2024 3:48pm Spondylosis of lumbar spine Spondylosis without myelopathy or radiculopathy, lumbar regionComplies with drug therapyTramadol 50 mg wbdwddKxvfocqfvsdl78VYFDKuotv as needed for szri65231Nquak 2023 12:00amJune 2023 3:37pmSpondylosis of lumbar spine Spondylosis without myelopathy or radiculopathy, lumbar regionSulfamethoxazole- Trimethoprim 800-160 mg uabhxkHbgfhtdfgkih7MQDMNNzurx nzrxi8789Vygsa 2023 12:00amMay 2023 10:19amValacyclovir 1 gram sawlnpEexqwt6356AEPZHzqft times mcdxu8678JvcJanuary 09, 2024 12:00amComplies with drug therapyAlbuterol Sulfate 90 mcg/actuation HFA aerosol nzsuezsZsohfalxgtey2KPPEBILDCNEMTXVfale 4 hours as needed for shortness of breath or wheezing8.5302Ma2023 10:26amDecember 2023 12:13pmDoxycycline Hyclate 100 mg vsbzixuYvgsrjxdjnhc970YXDYZvnuf lgsgb695Eabsatbn 9th, 2024 1:00amDecember 2023 6:07pmAmoxicillin 875 mg wfbuykHmgxcdraajmy773PGTYDfliz znzuo4325Uwedhuaz 2023 1:00amMarch 2024 2:09pmAmlodipine 5 mg nwvjeqItnxob3TYESGchwl46796Wymxwre 17th, 2025 12:00am Complies with drug therapyBaclofen 10 mg fgrewmKuoudl86MWVSMlanq at lzcwhaw89942 June 07, 2025 2:43pmComplies with drug therapyAmoxicillin-Pot Clavulanate 875-125 mg nfdvcyQmntzreqzmmu4EDREFRjaql 12 yieta39355Jdlg 2024 12:00am March 01, 2025 11:15amNitrofurantoin Monohyd/M-Cryst 100 mg capsuleDiscontinued 100MGPOEvery 12 xqvao6595Flwy 2024 12:00amJuly 2024 11:16ammust administer with a meal/foodPrednisone 20 mg mhbineKbygjd10BECSSl Orracnve2390 May 10, 2025 12:00am1 tab tid w/ food x 1 days, then bid w/ food x 2 days, then qd w/ food x 3 daysComplies with drug therapy Immunizations Immunization Event Date Not Given Reason Dose Number 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 Drill Operator Rotary Drill Lot Number Reason(s) Given Vaccine Information Statement (VIS) Detail Administration Location COVID-19 mRNA-1273 (Moderna) September 17, 2020 COVID-19 mRNA, Comirnaty (Topmall)September 17OVID-19 mRNA, Comirnaty (Topmall)October 08OVID-19 mRNA, Comirnaty (Pfizer)May 22, 2021 COVID-19 mRNA, Comirnaty (Pfizer)December 12OVID Comirnaty (Pfizer) Tri-Sucrose +December 12OVID-19 mRNA Bivalent Booster (Pfizer)May 18OVID-19 (PFIZER) 12Y and olderOctober [id number]- 19 (PFIZER) 12Y and olderSeptember [id number]-82 (PFIZER) 12Y and olderApril [id number], unspecifiedDecember 2016Fluzone TIV High-Dose 65YR+May 10, [id number] TIV High-Dose 65YR+June 07, [id number] [facility] CenterFluzone QIV High-Dose 65YR+ June 23, [id number] vaccine, quadrivalent, adjuvantedSeptember , [id number], unspecified formulationSeptember 2019influenza, unspecified formulationNovember 2020influenza, unspecified formulation June 23, 2022influenza, unspecified formulationNovember 2021 Pneumococcal Conjugate Vaccine, 13 valentOctober 2014Pneumococcal Conjugate Vaccine, 13 valentOctober , 2014Pneumococcal Polysacc. Vaccine, 23 valentSeptember 2017Pneumococcal Polysacc. Vaccine, 23 valentSeptember , 2018Pneumococcal Polysacc. Vaccine, 23 valentApril 2016RSV, preF3, adj, pfNovember , [id number] Vaccine Recombinant, AdjuvantedAugust 7446J2X8LSjprco Vaccine Recombinant, AdjuvantedMarch 593KK4 Tetanus, Diphtheria, Pertussis (Tdap)May 20, 2024KY27J Relevant Diagnostic Tests and/or Laboratory Data Laboratory Results Test Collection Date/Time Result Date/Time Result Interpretation Reference Range Result Comment Performing Site Estimated Average Glucose April 05, 2025 8:57 am April 05, 2025 8:57am 120 mg/dL Cholesterol/HDL RatioAumountain [facility]2024 8:57amAugust 2024 8:57am2.43.3 - 4.4 LOW RISK4.4 - 7.1 AVERAGE RISK7.1 - 11.0 MODERATE RISK>11.0 HIGH RISKAnion GapAugust 2024 8:57amAugust 2024 8:57am11.8Basophils # (Auto)April 05, 2025 8:572024 8:57am0.0 10 3/uL0.0-0.1Urine Random CreatinineAugust 2024 9:252024 9:49vk025.09 mg/dL 20.00-300.00Hemoglobin X3aUryzpi 2024 8:572024 8:57am5.8 % 4.5-6.2ADA RECOMMENDED LIMIT 4.0 - 6.0ADA THERAPEUTIC TARGET < 7.0ACTION SUGGESTED> 7.0Cholesterol LevelAugust 2024 8:572024 8:57am 118 mg/dL<=200Albumin/Globulin RatioAugust 2024 8:572024 8:57am0.8Basophils (%) (Auto)April 05, 2025 8:572024 8:57am0.3 %0.2-2.0Urine Random MicroalbuminAugust 2024 9:252024 9:25am<1.3 mg/dL<=30.0HDL CholesterolAugust 2024 8:572024 8:57am49 mg/dL40-60> or =60 mg/dl - LOW CARDIOVASCULAR RISK<40 mg/dl - HIGH CARDIOVASCULAR RISKAlbuminAugust 2024 8:572024 8:57am3.6 g/dL3.4-5.0Eosinophils # (Auto)April 05, 2025 8:572024 8:57am 0.4 10 3/uL0.0-0.7LDL Cholesterol, CalculatedAugust 2024 8:572024 8:57am55.8 mg/dL<100 mg/dl DZDOTAW787-460 mg/dl NEAR OR ABOVE VNKOTDP596-912 mg/dl BORDERLINE APYL975-986 mg/dl HIGH>190 mg/dl VERY HIGH Alkaline PhosphataseAugust 2024 8:572024 8:76dv223 U/L 46-116Eosinophils (%) (Auto)April 05, 2025 8:57amAugu2024 8:57am5.7 %0.9-7.0Triglycerides LevelAugust 2024 8:57amAugu2024 8:57am66 mg/dL<=150Alanine Aminotransferase (ALT/SGPT)April 05, 2025 8:572024 8:57am25 U/W65-80ScqemeziilHgtlrz 15th, 2025 8:57amAugu2024 8:57am42.6 %36.0-48.0VLDL CholesterolAugus2024 8:57ugu2024 8:57am13.2 mg/dLAspartate Amino Transf (AST/SGOT)April 05, 2025 8:572024 8:57am22 U/Y68-99LyckyoovuiWzuugj 2024 8:57amAugu2024 8:57am13.7 g/dL12.0-16.0BUN/Creatinine RatioAu2024 8:572024 8:57am28.6Immature Granulocyte # (Auto)April 05, 2025 8:57amA2024 8:57am0.01 10 3/uL0.00-0.03Blood Urea NitrogenAugust 2024 8:57am April 05, 2025 8:57am16.0 mg/dL7.0-18.0Immature Granulocyte % (Auto)April 05, 2025 8:57amAugu2024 8:57am0.1 %0.0-0.5Calcium LevelAugust 2024 8:57amA2024 8:57am9.5 mg/dL8.5-10.1Lymphocytes # (Auto)April 05, 2025 8:572024 8:57am2.1 10 3/uL1.2-3.8Chloride LevelAugust 2024 8:57amAugust 2024 8:90qd249 mmol/E76-145Ugmurhwmmjd (%) (Auto) April 05, 2025 8:57ugu2024 8:57am29.0 %20.5-60.0Carbon Dioxide LevelAugust 2024 8:57ugu2024 8:57am26.6 mmol/L21.0-32.0Mean Corpuscular HemoglobinAugust 2024 8:57amAugust 2024 8:57am29.8 pg 26.7-34.0CreatinineAugu2024 8:57ugu2024 8:57am0.56 mg/dL 0.55-1.02Mean Corpuscular Hemoglobin ConcentAu2024 8:57ugu2024 8:57am32.2 g/dL29.9-35.2Estimated GFR ()April 05, 2025 8:57ugu2024 8:57am>60>=60 mL/min/1.73m 2Mean Corpuscular Volume April 05, 2025 8:572024 8:57am92.8 fL81.0-99.0Estimated GFR (Non- AmericanAu2024 8:57ugu2024 8:57am>60>=60 mL/min/1.73m 2Monocytes # (Auto)April 05, 2025 8:57amAugu2024 8:57am 0.5 10 3/uL0.3-0.8GlobulinAugus2024 8:57amAugu2024 8:57am4.3 g/dLMonocytes (%) (Auto)April 05, 2025 8:57amAugu2024 8:57am6.9 % 1.7-12.0Glucose LevelAugus2024 8:57amAugust 2024 8:92uq285 mg/dL Above high -387Xgdy Platelet VolumeAugust 2024 8:57amAugust 2024 8:57am9.9 fL9.5-13.5Potassium LevelAugust 2024 8:57amAugu2024 8:57am4.4 mmol/L3.5-5.1Neutrophils # (Auto)April 05, 2025 8:57amAugust 2024 8:57am4.2 10 3/uL1.4-6.5Sodium LevelAugust 2024 8:57amAugust 2024 8:06uc764 mmol/D535-137Hqegwmohxjs (%) (Auto)April 05, 2025 8:57am April 05, 2025 8:57am58.0 %43.0-75.0Total BilirubinAugust 2024 8:57am April 05, 2025 8:57am0.8 mg/dL0.2-1.0Platelet CountAugust 2024 8:57am April 05, 2025 8:23ht589 10 3/vC941-495Gjkcz ProteinAugust 2024 8:57am April 05, 2025 8:57am7.9 g/dL6.4-8.2Red Blood CountAugust 2024 8:57am April 05, 2025 8:57am4.59 10 6/uL4.20-5.40Red Cell Distribution WidthAugust 2024 8:57amAugu2024 8:57am14.2 %11.0-15.0Corrected White Blood CountAugust 2024 8:57amAugust 2024 8:57am7.3 10 3/uL4.0-11.0 Vital Signs Vital Reading Result Reference Range Collection Date/Time Height 61 [in_i] April 23, 2025 1:28wfDbjymz97.10 kgSeptember 2024 1:44pmHeart Rate50 /bkd08-839Booujhnei 2024 1:44pmRespiratory rate12 /csn39-93Jdvnhezry 2nd, 2025 1:44pmBP Enuwxkim669 mm[Hg]100-140Sept2024 1:44pmBP Cstsicxob28 mm[Hg]60-100Sept2024 1:44pmBMI (Body Mass Index)34.2 kg/w0Hzgxyrqqt2024 1:59dvRmxdfs29 [in_i]May 07, 2025 3:70xzQhxdpg59.10 kg May 07, 2025 3:12pmHeart Rate60 /tyr78-515Zvrumozvg 16th, 2025 3:12pm Respiratory rate12 /udh32-82Vuxgpnzbu 16th, 2025 3:12pmBP Yrbgpcfi665 mm[Hg] 100-140Sept2024 3:12pmBP Qfzneciot700 mm[Hg]60-100pt2024 3:12pmBMI (Body Mass Index)34.2 kg/z8Bvmmvielc2024 3:91zdGftpjt37 [in_i]May 10, 2025 2:10nwYsilda70.10 kgSept2024 2:26pmHeart Rate60 /ipl70-150Fhzinnqfb 19th, 2025 2:26pmRespiratory rate12 /xmp16-71 May 10, 2025 2:26pmBP Yiqmgies362 mm[Hg]100-140Sept2024 2:26pmBP Rtzyxscbb96 mm[Hg]60-100Sept2024 2:26pmBMI (Body Mass Index)34.2 kg/n9Ftzzrpmwp2024 2:44nhWcifyt18 [in_i]June 07, 2025 1:20mpBidbhz79.85 kgOct2024 1:38pmHeart Rate56 /qub12-025WhbutmoJune 07, 2025 1:38pmRespiratory rate12 /lxx52-63Cgfmxan 17th, 2025 1:38pmBP Cprxifdi480 mm[Hg]100-140June 07, 2025 1:38pmBP Efxeaqkfn39 mm[Hg]60-100 June 07, 2025 1:38pmBMI (Body Mass Index)33.7 kg/i4Fcmruaa2024 1:38pm Advance Directives Advance Directive Response Recorded Date/ Time Advance Directives No April 1:55pm Insurance Providers Guarantor Chelly Tillman Address [address] [facility] [address]Venhxwp Info.Home Phone: Coverage Status Update:2024 Payer Group Member ID Coverage Type Subscriber Relationship to Subscriber Effective Date Expiration Date Medicare [id number] J Missler Id: [id number] [address] [address] Home Phone: [employer] [facility] [address] [place] [address] Work Phone: Id: PLAN [id number] J Missler Id: [id number] [address] [facility] [address] Home Phone: Self Encounters Encounter Location(s) Arrival/Admit Date Discharge/Departure Date Discharge/Departure Disposition Provider(s) Non-patient / Non-visit -[facility] Professional [facility] A ugust 2024 8:57am Sushila Arriagaed Physician/[facility]32pm[facility]2024 2:17pmDischarged to home care or self care (routine discharge)Amanda Arriaga [facility] 2:57pmSept2024 3:52pmDischarged to home care or self care (routine discharge)Amanda Arriaga Physician/Provider Office Visit-[facility] 2024 1:56pmSept2024 3:02pmDischarged to home care or self care (routine discharge)Amanda Arriaga Physician/Provider Office Visit-[facility] 2024 1:22pm June 07, 2025 2:59pmDischarged to home care or self care (routine discharge)Edwin Mohan , DO Recent Diagnosis Onset Date Admit Date Contusion of knee, left Unknown Aprembe r 2024 1:32pm Contusion of shoulder, left Unknown Apr 1:32pm Essential hypertension Unknown April 23, 2025 1:32pm Exercise hypoxemia Unknown April 1:32pm Interstitial lung disease Unknown Septem 2024 1:32pm Left knee pain Unknown April 23, 2 025 1:32pm Orthostatic lightheadedness Unknown Apr 1:32pm Shoulder pain, left Unknown April 1:32pm Type 2 diabetes mellitus with hyperglycemia Unkn April 23, 2025 1:32pm Essential hypertension Unknown May 07, 2025 2:57pm Obesity Unknown May 07, 2025 2:57pm Orthostatic lightheadedness Unknown Apr 2:57pm Type 2 diabetes mellitus with hyperglycemia Unkn May 07, 2025 2:57pm Compression fracture of L1 lumbar vertebra Unkno wn May 10, 2025 1:56pm Low back pain Unknown May 10, 2025 1:56pm Lumbar spondylosis Unknown April 1:56pm ASHD (arteriosclerotic heart disease) Unknown June 07, 2025 1:22pm Cigarette nicotine dependence in remission Unkno wn June 07, 2025 1:22pm Essential hypertension Unknown May 222024 1:22pm Lumbar spondylosis Unknown June 07, 2025 1:22pm DUSTIN (obstructive sleep apnea) Unknown Oc tober 2024 1:22pm Pulmonary nodule Unknown June 07, 2 025 1:22pm Pure hypercholesterolemia Unknown Octobe r 2024 1:22pm Restrictive lung disease Unknown June 07, 2025 1:22pm Type 2 diabetes mellitus with hyperglycemia Unkn June 07, 2025 1:22pm Assessments Diagnosis Onset Date Resolution Status Admit Date Contusion of knee, left acuteSept2024 1:32pmContusion of shoulder, leftacuteSept2024 1:32pmEssential hypertensionacuteSept2024 1:32pmExercise hypoxemiaacuteSept2024 1:32pmInterstitial lung diseaseacuteSept2024 1:32pmLeft knee painacuteSept2024 1:32pmOrthostatic lightheadednessacuteSeptember 2024 1:32pmShoulder pain, leftacuteSept2024 1:32pmType 2 diabetes mellitus with hyperglycemiaacuteSept2024 1:32pmEssential hypertensionacuteSeptember 2024 2:57pmObesityacute May 07, 2025 2:57pmOrthostatic lightheadednessacuteSeptember 2024 2:57pmType 2 diabetes mellitus with hyperglycemiaacuteSeptember 2024 2:57pmCompression fracture of L1 lumbar vertebraacuteSeptember 2024 1:56pm Low back painacuteSeptember 2024 1:56pmLumbar spondylosisacuteSeptember 2024 1:56pmASHD (arteriosclerotic heart disease)acuteOctober 2024 1:22pmCigarette nicotine dependence in remissionacuteOctober 2024 1:22pm Essential hypertensionacuteOctober 2024 1:22pmLumbar spondylosisacute June 07, 2025 1:22pmOSA (obstructive sleep apnea)acuteOctober 2024 1:22pmPulmonary noduleacuteOctober 2024 1:22pmPure hypercholesterolemia acuteOctober 2024 1:22pmRestrictive lung diseaseacuteOctober 2024 1:22pmType 2 diabetes mellitus with hyperglycemiaacuteOctober 2024 1:22pm Plan of Treatment Author Edwin Mohan [facility] CenterAuthoredSept2024 8:32pmIce, Voltaren, Lidocaine and Tylenol XR to r/o fracture Ice, Voltaren, Lidocaine and Tylenol XR to r/o fracture Ice, Voltaren, Lidocaine and Tylenol Rest and elevate. XR to r/o fracture Ice, Voltaren, Lidocaine and Tylenol Rest and elevate. XR to r/o fracture Increase fluids to minimum 40oz daily Hold HCTZ Continue Bisoprolol Hold Losartan if SBP < 130 Update offfice in couple days I have instructed this patient to consume a healthy, low-fat, low-salt diet. I have also encouraged them to continue exercise with weight loss to achieve/maintain a BMI < 30. I have instructed this patient on the correct procedure for obtaining home BP measurements:? - rest for 5 minutes w/o talking. - positioned w/ feet on floor and arms supported. - average best 2/3 readings w/ goal < 135/85. Update office w/ home readings in 2 weeks. Instructed to take Bisoprolol every morning Instructed to take Losartan at HS for SBP > 130 Hold HCTZ I have instructed this patient to follow a comprehensive diabetic treatment plan. I have also instructed them to check their feet daily for calluses and nonhealing ulcers. I have instructed them to have a yearly dilated eye examination. I have reviewed their treatment goals: SBP less than 130, LDL less than 100, FBS less than 140, A1C less than 7%. I have instructed them to maintain a home BS log and bring the results to each of their office visits for review. I have explained the importance of routine monitoring of their A1C, Microalbumin and Lipids. I have explained the benefits of well controlled diabetes in preventing micro and macrovascular complications. A1C 5.6% Mar 2024 Refer to Pulmonary Clinic - ILD, hx of tobacco use, hypoxemia, DUSTIN Needs oxygen therapy Referred to Pulmonary clinic to establish care and assist in initiating oxygen therapy. Author Edwin Mohan [facility] CenterAuthoredSeptember 2024 9:53pmIncrease fluids to minimum 40oz daily Hold HCTZ Continue Bisoprolol Hold Losartan if SBP < 130 Much improved w/o development of lower extremity edema. I have instructed this patient to consume a healthy, low-fat, low-salt diet. I have also encouraged them to continue exercise with weight loss to achieve/maintain a BMI < 30. I have instructed this patient on the correct procedure for obtaining home BP measurements:? - rest for 5 minutes w/o talking. - positioned w/ feet on floor and arms supported. - average best 2/3 readings w/ goal < 135/85. Update office w/ home readings in 2 weeks. Instructed to take Bisoprolol every morning Instructed to restart Losartan q evening Instructed to take HCTZ only w/ increased lower extremity edema I have instructed this patient to follow a comprehensive diabetic treatment plan. I have also instructed them to check their feet daily for calluses and nonhealing ulcers. I have instructed them to have a yearly dilated eye examination. I have reviewed their treatment goals: SBP less than 130, LDL less than 100, FBS less than 140, A1C less than 7%. I have instructed them to maintain a home BS log and bring the results to each of their office visits for review. I have explained the importance of routine monitoring of their A1C, Microalbumin and Lipids. I have explained the benefits of well controlled diabetes in preventing micro and macrovascular complications. A1C 5.6% Mar 2024 I have instructed this patient on a low-fat, high-fiber diet.?? I have also instructed them to reduce calories, portions sizes, sweet drinks and snacks.?? I have also recommended they exercise for 30 minutes, 3-5 times weekly. They are aware of the comorbid conditions associated with excessive weight: Diabetes, HTN, Hyperlipidemia, CAD and arthritis. Author Edwin Mohan [facility] CenterAuthoredOctober 2024 10:09pmReferral to Pulmonary w/o change in treatment Instructed to increase activity and lose weight. PFT w/ mild RLD w/ severe diffusion defect - 05/2023 CT w/ small, stable nodules - 03/2024 Referred to Pulmonary in 07/2023 but no f/u appt. Recommend 6min walk test Echocardiogram to assess for pulmonary hypertension This patient is stable without activity related chest pain, dyspnea or lightheadedness. I instructed them to continue exercise at least 3x weekly and consume a low salt, low fat, high fiber diet. I instructed them to continue secondary prevention measures in reducing risks for recurrent events. Continue ASA, Atenolol without interruption I have instructed this patient to consume a healthy, low-fat, low-salt diet. I have also encouraged them to continue exercise with weight loss to achieve/maintain a BMI < 30. I have instructed this patient on the correct procedure for obtaining home BP measurements:? - rest for 5 minutes w/o talking. - positioned w/ feet on floor and arms supported. - average best 2/3 readings w/ goal < 135/85. - update office w/ home readings in 2 weeks. Continue Atenolol and Losartan without interruption I have instructed this patient to follow a comprehensive diabetic treatment plan. I have also instructed them to check their feet daily for calluses and nonhealing ulcers. I have instructed them to have a yearly dilated eye examination. I have reviewed their treatment goals: SBP less than 130, LDL less than 100, FBS less than 140, A1C less than 7%. I have instructed them to maintain a home BS log and bring the results to each of their office visits for review. I have explained the importance of routine monitoring of their A1C, Microalbumin and Lipids. I have explained the benefits of well controlled diabetes in preventing micro and macrovascular complications. A1C 5.6% Mar 2024 This patient is aware of the benefits associated with DUSTIN: With continued use, the patient reduces the risk for IL, CVA, HTN, cardiac dysrhythmias and sudden cardiac deaths. The patient is also aware of the association between DUSTIN and morning headaches, daytime somnolence, fatigue and obesity, which also has been improved with continued use. The patient is compliant with treatment, wearing the equipment every night for greater than 4 hours. The patient is instructed to continue use of the CPAP for DUSTIN treatment. She is using a refurbished machine, which may require replacement soon. Recommend referral to sleep clinic for retitration and new machine, but patient declined. Continue surveillance scans due to hx of tobacco use. Small (<6mm) nodule. CT: stable 4mm RML nodule - 03/2024 I have instructed this patient on a low fat, high fiber diet and exercise. I have discussed the primary and secondary prevention benefits attributed to lowering LDL cholesterol. I have also discussed the medical treatment of elevated cholesterol, which is based on the 10 year ASCVD risk. Age started 21 PPD 2 Age stopped 2011 Continue abstinence. LDCT yearly until 81y/o She denies CP, change in dyspnea or hemoptysis I have instructed this patient to avoid bending, twisting or lifting. I have also instructed on use of intermittent heat and ice as needed. They may schedule a massage or gentle manipulation. I instructed them on the safe use of Tylenol, Lidocaine and stretching exercises. I informed them of alternative modes of treatment for severe pain, which may include referral to physical therapy or pain management. Author Edwin Mohan [facility] CenterAuthoredSeptember 2024 4:04pmSecondary to fall several weeks ago w/ increased symptoms. Unable to resolve symptoms w/ medical treatment PT unable to improve her symptoms Her for acute pain treatment Toradol 30mg IM x 1 for pain Initiate Prednisone and taper over 9 days Monitor for now, unlikely contributing to pain Consider repeat XR for additional compression fractures I have instructed this patient to avoid bending, twisting or lifting. I have also instructed on use of intermittent heat and ice as needed. They may schedule a massage or gentle manipulation. I instructed them on the safe use of Tylenol, Lidocaine and stretching exercises. I informed them of alternative modes of treatment for severe pain, which may include referral to physical therapy or pain management. Future Tests Future scheduled test information is unavailable Pending Tests Test Name Ordered Date Scheduled Date CT chest wo con high res April 23, 2025 1:1 2pm XR humerus LT*April 23, 2025 2:10pmXR knee LT 4V*April 23, 2025 2:10pm Future Visits Future appointment information is unavailable Future Procedures Procedure Name Ordered Date Scheduled Date Complete Pulmonary Function April 23, 2025 1:15pm Future Medications Future medication information is unavailable Patient Instructions Instruction Admit Date Low back pain in adults May 10, 2025 1:56pm
--- OUTSIDE RECORDS SUMMARY | 2025-06-20 14:02 | XMS_ITS | Clinical Summary ---
Author Organization [facility] Healthcare Address [address] [place] [address] Care Team Providers Care Transitions Manager Name Role Phone Edwin Mohan DO Primary Care Provider [phone] Allergies Active AllergyReactionsCriticalityNoted WnfcIpxwpmslQzwvlsvfJdkkmWll30/20/2023 NcgvsdgajxmyhVefzxIrd49/20/2023extromethorphan DbyZslbfHnc51/12/2023 joint tightness Medications MedicationSigDispense QuantityRefillsLast FilledStart DateEnd DateStatus atenolol (Tenormin) 25 MG tablet Take 25 mg by mouth in the morning.01/20/2023ctive atorvastatin (Lipitor) 20 MG tablet TAKE 1 TABLET BY MOUTH EVERY DAY FOR 90 DAYS01/20/2023ctive benzonatate (Tessalon) 200 MG capsule TAKE 1 CAPSULE BY MOUTH 3 TIMES A DAY FOR 10 DAYS11/01/2022ctive hydroCHLOROthiazide (HYDRODiuril) 25 MG tablet Take 25 mg by mouth in the morning.11/20/2022ctive losartan (Cozaar) 100 MG tablet Take 100 mg by mouth in the morning.11/20/2022ctive omeprazole (PriLOSEC) [address] capsule TAKE 1 CAPSULE BY MOUTH EVERY MORNING ON EMPTY STOMACH FOLLOWED IN 30 MINUTES BY ZPGSNXEXN50/01/2023ctive albuterol HFA 90 mcg/act inhaler INHALE 2 PUFFS EVERY 4 HOURS NEEDED FOR COUGH/ SHORT OF LLHKVE6905/14/2023 Active losartan-hydroCHLOROthiazide (Hyzaar) 100-25 MG tablet TAKE 1 TABLET BY MOUTH EVERY DAY Oral for 90Active Lifitegrast (Xiidra) 5 % solution Indications:Keratoconjunctivitis sicca of both eyes not specified as Sjogren's Administer 1 drop into affected eye(s) in the morning and at noon 180 each ctive Active Problems ProblemNoted DateDiagnosed DateKeratoconjunctivitis sicca of both eyes not specified as Sjogren's004/03/2024OSA (obstructive sleep apnea)08/02/2023ILD (interstitial lung disease)08/02/2023ulmonary tzlonwyzu16/12/2023iplopia 02/08/2023ry eyes02/08/2023Retinitis jihsflqhmn76/20/2023 Resolved Problems ProblemNoted DateDiagnosed DateResolved DateMorton's neuroma of right foot CO (posterior capsular opacification), igrwmhigm13/20/2023 04/03/2024 Immunizations ImmunizationAdministration DatesNext DueInfluenza, High-dose Seasonal, Quadrivalent, Preservative Free06/23/2022Influenza, Seasonal, Quadrivalent, Ohkorqhonf94/26/2023neumococcal Polysaccharide [id number],11/20/2016 SARS-COV-2 (COVID-19) vaccine, mRNA, spike protein, LNP, PF, leif-sucrose, 30 mcg/0.3 mL05/23/20236478DZMD-LWV-3 (COVID-19) vaccine, mRNA, spike protein, LNP, bivalent, preservative free, 30 mcg/0.3 mLdose, leif-sucrose formulation 05/18/2022Unknown outside aykklssoofpj21/09/2020 Family History Medical HistoryRelationNameCommentsDiabetesFatherHeart diseaseFatherMacular degenerationFatherStrokeFatheradult respiratory distress syndromeMotherRelation NameStatusCommentsFatherDeceasedMotherDeceased Social History Tobacco UseTypesPacks/DayYears UsedDateSmoking Tobacco: FormerCigarettes Smokeless Tobacco: Never Tobacco Cessation:Counseling Given: Not Answered Alcohol UseStandard Drinks/WeekCommentsNever0 (1 standard drink = 0.6 oz pure alcohol)caffeine intake: coffeeCommentsUnknownSex and Gender Information ValueDate RecordedSex Assigned at BirthNot on fileLegal WnwLwrxhf23/01/2023 8:34 PM EDTGender IdentityNot on fileSexual OrientationNot on file Last Filed Vital Signs Vital SignReadingTime TakenCommentsBlood Uokzpile159/8108/02/2023 1:07 PM EST Ljsrr730008/02/2023 1:07 PM ESTTemperature--Respiratory Rate--Oxygen Bjagyahujj96% 08/02/2023 1:07 PM ESTInhaled Oxygen Concentration--Fjpxtb18.7 kg (200 lb) 08/02/2023 1:07 PM PDSCvdiul231.9 cm (5' 1 )08/02/2023 1:07 PM ESTBody Mass Index37.7908/02/2023 1:07 PM EST Plan of Treatment Not on file Insurance Care Teams Team MemberRelationshipSpecialtyStart DateEnd Date Edwin Mohan DO PCP - GeneralInternal Jzggsqmt17/12/23
--- NOTE | 2025-06-20 14:04 | MM_ITS ---
Patient Name: MARIA ELENA ALLEN MR#: [id number] : 1945 Exam Date: 06/20/2025 Ordering Doctor: DR ANTOINE IZQUIERDO D.O. RADIOLOGY REPORT PROCEDURE: MM TOMOSYNTHESIS SCREENING BI COMPARISON: MM TOMOSYNTHESIS SCREENING BI, 06/18/2024. MM TOMOSYNTHESIS SCREENING BI, 06/15/2023. MG MAMM SCREEN 3D JESSENIA CAD, 05/25/2022. MG MAMM JESSENIA SCRN W CAD DIG, 11/15/2013. INDICATIONS: Screening Calculator Name NCI Breast Cancer Risk Assessment Tool 5 Year Breast Cancer Risk 1.70% Lifetime Breast Cancer Risk 2.80% Personal Breast Cancer No Personal Ovarian Cancer No Treatments None Family Cancers None LOCATION: [facility] BREAST COMPOSITION: There are scattered areas of fibroglandular density. FINDINGS: DIAGNOSTIC CATEGORY 1--NEGATIVE. RIGHT BREAST: No significant suspicious finding. LEFT BREAST: No significant suspicious finding. RECOMMENDATIONS: ROUTINE MAMMOGRAM AND CLINICAL EVALUATION IN 12 MONTHS. Dictated by: Chencho Hernandez DO on 06/20/2025 at 15:55 Approved by: Chencho Hernandez DO on 06/20/2025 at 15:57
--- OUTSIDE RECORDS SUMMARY | 2025-06-20 14:14 | XMS_ITS | CCD ---
Author Organization [facility] Care Team Providers [employer] Teammate Name Role Phone Edwin Mohan Unavailable FELECIA, DR SCHULTZ Admitting Unavailable FELECIA, DR SCHULTZ Attending Unavailable FELECIA, DR SCHULTZ Primary Care Unavailable FELECIA, DR SCHULTZ Consulting Unavailable FELECIA, DR SCHULTZ Admitting Unavailable FELECIA, DR SCHULTZ Attending Unavailable FELECIA, DR SCHULTZ Primary Care Unavailable FELECIA, DR SCHULTZ Consulting Unavailable WEST, DR BHARTI De La Rosa Consulting Unavailable FELECIA, DR SCHULTZ Admitting Unavailable FELECIA, DR SCHULTZ Attending Unavailable FELECIA, DR SCHULTZ Primary Care Unavailable DO Edwin Mohan Primary Care Provider [phone] DO Edwin Mohan Attending Provider [phone] Ailin CHO, Raphael Luna Attending Unavailable Ailin CHO, Anddaisy Luna Attending Unavailable Ailin CHO, Anddaisy Luna Attending Unavailable ANGEL CAMPOS Attending Unavailable ANGEL CAMPOS Attending Unavailable ANGEL CAMPOS Attending Unavailable YANY MARTINEZ Attending Unavailable EDWIN MOHAN Primary Care Physician [phone] Kari Pepper Attending Unavailable Kari Pepper Admitting Unavailable Kari Pepper Attending Unavailable Edwin Mohan DO Primary Care Provider Roberto Johnson APRN Emergency Provider [phone] Wilfred Orozco DO Attending Provider [phone] Edwin Mohan DO Primary Care Provider Wilfred Orozco DO Attending Provider [phone] Edwin Mohan DO Attending Provider [phone] Edwin Mohan Primary Care Unavailable Wilfred Orozco Admitting Unavailable Wilfred Orozco Attending Unavailable Wilfred Orozco Attending Unavailable Edwin Mohan Primary Care Unavailable Wilfred Orozco Admitting Unavailable Wilfred Orozco Attending Unavailable Edwin Mohan Primary Care Unavailable Wilfred Orozco Admitting Unavailable Felecia, Edwin Primary Care Unavailable Johnny Johnsonothy Admitting Unavailable Roberto Johnson Attending Unavailable Rere, Genevieve Attending Unavailable Rere, Genevieve Admitting Unavailable Galea, Lacey Oscar Attending Unavailable Galea, Lacey J Admitting Unavailable Rere, Genevieve Attending Unavailable Rere, Genevieve Attending Unavailable Galea, Lacey J Attending Unavailable Galea, Lacey J Admitting Unavailable Galea, Lacey J Attending Unavailable Kari Pepper Referring Unavailable Kari Pepper Attending Unavailable Genevieve Jernigan Attending Unavailable Edwin Mohan DO Primary Care Provider [phone] Wilfred Orozco DO Attending Provider [phone] Kari Pepper Attending Unavailable Genevieve Jernigan Attending Unavailable RereDukeen Admitting Unavailable Edwin Mohan DO Primary Care Provider Felecia ALBERTO, Edwin Attending Provider Felecia DO, Edwin Primary Care Provider Felecia DO, Edwin Attending Provider Ball DO, Edwin Primary Care Provider Felecia DO, Edwin Attending Provider Allergies Allergy ClassificationReported Allergen(s)Allergy TypeDate of OnsetReaction(s) Facility (7 sources)Cefaclor; Translations: [Ceclor]Drug AllergyUnknowBlanch[facility] (20 sources)Ciprofloxacin; Translations: [ciprofloxacin]Drug [id number] Weal (disorder)[facility] (5 sources)Ciprofloxacin; Translations: [Cipro]Drug AllergyThe [facility] (1 source)Robafen DM Cough-Chest CongestDrug allergy (disorder)[facility]ository (20 sources)Ceclor *CEPHALOSPORINS*Propensity to adverse reactionsUnknowBates [facility] Other (13 sources)Cephalosporins (Antibiotic); Translations: [Cephalosporins]Allergy to ytqfdvtiw62-30-8934[facility] (9 sources)Cefaclor; Translations: [cefaclor]Drug AllergyWeal (disorder) [facility] (1 source)CiprofloxacinDrug Ddlnbge06-39-7825ZtbdxgefbProtestant Hospital Repository Medications Current Medications MedicationDrug Class(es)DatesSig (Normalized)Sig (Original)albuterol HFA 90 mcg/inh MDI (6 sources)Start: 08-19-5102dksshspbb HFA 90 mcg/inh MDI Refill(s) 0, Respiratory (Inhalation), 0 Refill(s) Start Date: 04/20/23Status: Ordered Repeat number: 1Start: 99-67-4952lshmuidtf HFA 90 mcg/inh MDI Refill(s) 0, Respiratory (Inhalation), 0 Refill(s) Start Date: 04/20/23Status: OrderedamLODIPine 5 mg oral tablet (1 source)Dihydropyridine Calcium Channel BlockerStart: 59-38-2957guvn 1 tablet by mouth once dailyAmlodipine 5 mg tablet Active 5 MG PO Daily 90 90 0 June 07, 2025 12:00am Complies with drug therapyAnoro Ellipta 62.5 mcg-25 mcg inhalation powder (6 sources)Start: 01-70-1873Cmfmm: 73-63-9859epplnib 81 mg oral capsule (6 sources)Platelet Aggregation Inhibitor, Nonsteroidal Anti-inflammatory Drug Start: 91-08-1820mtll 1 mg by mouth every twenty-four hoursaspirin 81 mg oral capsule mg cap(s), Oral, q24hr, Refills(s) 0 Start Date: 05/30/24 Status: Ordered Repeat number: 1atorvastatin 20 mg oral tablet (20 sources)HMG-CoA Reductase InhibitorStart: 09-60-1237auix 1 tablet by mouth once daily in the eveningAtorvastatin 20 mg tablet Active 0 .ROUTE .COMPLEX 90 3 August 16, 2024 7:22pm TAKE 1 TABLET BYMOUTH EVERY EVENING Complies with drug therapyStart: 09-20-2022 End: 10-49-7758cwdm 1 tablet by mouth once daily in the eveningAtorvastatin 20 mg tablet Discontinued 20 MG PO Every evening 90 90 3 October 14, 2023 1:00am August 16, 2024 7:22pmazithromycin 250 mg oral tablet (6 sources)Macrolide AntimicrobialStart: 65-89-7693Vkfpdcatbeyi 250 MG as directed Orally daily for 5 days Jun, Activebaclofen 10 mg oral tablet (20 sources)gamma-Aminobutyric Acid-ergic AgonistStart: 07-48-2650zwix 1 tablet by mouth once daily at bedtimeBaclofen 10 mg tablet Active 10 MG PO Daily at bedtime 90 90 0 June 07, 2025 2:43pm Complies with drug therapyStart: 05-31-2025 End: 61-93-0110ejls 1 tablet by mouth once daily at bedtimeBaclofen 10 mg tablet Discontinued 0 .ROUTE .COMPLEX 90 1 May 31, 2025 5:22pm June 07 2:44pm TAKE 1 TABLET BY MOUTH EVERY DAY AT BEDTIME FOR 15 DAYSStart: 05-24-2025 End: 56-07-1700dgmh 1 tablet by mouth once daily at bedtimeBaclofen 10 mg tablet Discontinued 10 MG PO Daily at bedtime May 24, 2025 12:00am Octob 2024 5:22pmStart: 39-80-7519rxwb 1-2 tablets by mouth once at bedtime Baclofen 10 MG 1-2 tablets Orally q HS for 15 days Mar, Activebisoprolol fumarate 5 mg oral tablet (20 sources)beta-Adrenergic BlockerStart: 09-09-2024 End: 35-02-4877wwkn 0.5 tablet by mouth once dailyBisoprolol Fumarate 5 mg tablet Active 0 .ROUTE .COMPLEX 45 September 17, 2024 3:32pm TAKE 1/2 TABLET BY MOUTH ONCE A DAY Complies with drug therapyStart: 08-13-2024 End: 69-67-2296vmly 2.5 mg by mouth once dailyBisoprolol Fumarate 5 mg tablet Discontinued 2.5 MG PO Daily 0 August 13, 2024 1:00am September 09, 2024 10:16amBlood-Glucose Meter (Accu-Chek Guide Glucose Meter) misc (12 sources)Start: 83-08-9193Pnnds-Glucose Meter (Accu-Chek Guide Glucose Meter) misc Active 0 .Route 1 December 22, 2023 12:00am Type 2 diabetes mellitus with hyperglycemia Type 2 diabetes mellitus with hyperglycemia Use to test home BS qd Start: 16-09-1330Snmds-Glucose Meter (Accu-Chek Guide Glucose Meter) misc Active 0 .Route December 22, 2023 12:00am Use to test home BS qdescitalopram 10 mg oral tablet (20 sources)Serotonin Reuptake InhibitorStart: 07-26-2024 End: 03-61-3486ekji 1 tablet by mouth once dailyEscitalopram Oxalate 10 mg tablet Active 0 .ROUTE .COMPLEX 90 January 10, 2025 7:36am TAKE 1 TABLETBY MOUTH EVERY DAY Complies with drug therapyStart: 02-02-2024 End: 48-51-4641xhpk 1 tablet by mouth once dailyEscitalopram Oxalate 10 mg tablet Discontinued 10 MG PO Daily 30 30 5 February 02, 2024 12:00am July 26, 2024 8:29amtake 1 tablet by mouth once daily at bedtimeEscitalopram Oxalate 10 MG TAKE 1 TABLET BY MOUTH EVERYDAY AT BEDTIME for 90 Not-Taking/PRNestradiol 0.1 mg/ml vaginal cream (6 sources)EstrogenStart: 95-96-9923Exypexb 0.1 mg/g Cream See Instructions, 42.5 gm, Refill(s) 1, Apply a pea-sized amount to the vagina/urethra 3x/week for a month, then 2x/week for maintenance, [facility]/pharmacy #[id number], 155, cm, 05/30/24 8 :50:00 EDT, Height/Length Dosing, 81, kg, 05/30/24 8:50:00 EDT, Weight Dosing Start Date: 05/30/24 Status: Ordered Quantity: 42.5 Unit: g Repeat number: 2 loratadine 10 mg oral tablet (20 sources)Start: 74-01-9061tdek 1 tablet by mouth once dailyLoratadine 10 mg tablet Active 10 MG PO Daily October 31, 2023 12:00am Complies with drug therapy take 1 capsule by mouth every twenty-four hoursLoratadine 10 MG 1 capsule Orally Once a day Dwcbqo29 hr mirabegron 50 mg extended release oral tablet (2 sources)beta3-Adrenergic AgonistStart: 27-16-5982xwjy 1 tablet by mouth once dailymirabegron 50 mg oral tablet, extended release 50 mg = 1 tab(s), Oral, Daily, # 30 tab(s), Refills(s) 11, Pharmacy: [facility]/pharmacy #[id number], 155, cm, 05/30/24 8:50:00 EDT, Height/Length Dosing, 81, kg, 05/30/24 8:50:00 EDT, Weight Dosing Start Date: 05/30/24 Status: Orderedomeprazole 40 mg delayed release oral capsule (20 sources)Proton Pump InhibitorStart: 00-12-1570pdhu 1 capsule by mouth once daily in the morningOmeprazole 40 mg capsule,delayed release(DR/EC) Active 0 .ROUTE .COMPLEX 90 August 14, 2024 7:59am TAKE 1 CAPSULE BY MOUTH EVERY MORNING ON EMPTY STOMACH FOLLOWED IN 30 MINUTES BY BREAKFAST 90 Complies with drug therapyStart: 77-19-7182klpakffcek 40 mg Cap-DR 90 EA, 0 Refill(s), TAKE 1 CAPSULE BY MOUTH EVERY MORNING ON EMPTY STOMACH FOLLOWED IN 30 MINUTES BY BREAKFAST 90, Refills(s) 0 Start Date: 05/30/24 Status: Ordered Repeat number: 1 Start: 10-31-2023 End: 00-28-6862bgrf 1 capsule by mouth once dailyOmeprazole 40 mg capsule,delayed release(DR/EC) Discontinued 40 MG PO Daily October 31, 2023 12:00am August 14, 2024 8:00amOmeprazole 40 MG TAKE 1 CAPSULE BY MOUTH EVERY MORNING ON EMPTY STOMACH FOLLOWED IN 30 MINUTES BY BREAKFAST for 90 Active Potassium Chloride (Klor-Con M20) 20 mEq tablet,ER particles/crystals (7 sources)Start: 42-98-3632kzxy 1 tablet by mouth once dailyPotassium Chloride (Klor-Con M20) 20 mEq tablet,ER particles/crystals Active 0 .ROUTE .COMPLEX 90 April 20, 2024 6:47am TAKE 1 TABLET BY MOUTH EVERY DAY FOR 30 DAYSpredniSONE 20 mg oral tablet (2 sources)Start: 37-35-8090Nrevtfvrei 20 mg tablet Active 20 MG PO As Directed 10 7 0 May 10, 2025 12:00am 1 tab tid w/ food x 1 days, then bid w/ food x 2 days, then qd w/ food x 3 days Complies with drug therapyrosuvastatin calcium 5 mg oral tablet (20 sources)HMG-CoA Reductase InhibitorStart: 18-01-3882umwo 1 tablet by mouth once daily in the eveningRosuvastatin 5 mg tablet Active 5 MG PO Every evening October 31, 2023 12:00am Complies with drug therapytake 1 tablet by mouth once daily in the eveningRosuvastatin Calcium 5 MG TAKE 1 TABLET BY MOUTH EVERY EVENING Activetrospium chloride 20 mg oral tablet (2 sources)Cholinergic Muscarinic AntagonistStart: 47-18-4597tnyg 1 tablet by mouth once dailytrospium 20 mg oral tablet 20 mg = 1 tab(s), Oral, Daily, # 30 tab(s), Refills(s) 6, Pharmacy: [facility]/pharmacy #[id number], 155, cm, 05/30/24 8:50:00 EDT, Height/Length Dosing, 81, kg, 05/30/24 8:50:00 EDT, Weight Dosing Start Date: 05/30/24 Status: OrderedvalACYclovir 1000 mg oral tablet (12 sources)Herpesvirus Nucleoside Analog DNA Polymerase Inhibitor, Herpes Simplex Virus Nucleoside Analog DNA Polymerase Inhibitor, Herpes Zoster Virus Nucleoside Analog DNA Polymerase InhibitorStart: 19-04-4479Iuynbcremahj 1 gram tablet Active 1000 MG PO Three times daily 7 January 09, 2024 12:00am Complie s with drug therapyvibegron 75 MG Oral Tablet [Gemtesa] (2 sources)Start: 39-20-5501kxia 1 tablet by mouth once dailyGemtesa 75 mg oral tablet 75 mg = 1 tab(s), Oral, Daily, # 30 tab(s), Refills(s) 11, Pharmacy: [facility]/pharmacy #[id number], 155, cm, 05/30/24 8:50:00 EDT, Height/Length Dosing, 81, kg, 05/30/24 8:50:00 EDT, Weight Dosing Start Date: 05/30/24 Status: Ordered Completed/Discontinued Medications MedicationDrug Class(es)DatesSig (Normalized)Sig (Original)acetaminophen 325 mg / oxyCODONE hydrochloride 5 mg oral tablet (12 sources)Opioid AgonistStart: 11-03-2024 End: 14-98-7855qvvp 1 tablet by mouth every eight hours as needed for pain Oxycodone-Acetaminophen (Percocet) 5-325 mg tablet Discontinued 1 TAB PO Every 8 hours as needed for pain 10 3 0 November 03, 2024 November 09, 2024 4:30pm Fracture of [id number] 200 actuat albuterol 0.09 mg/actuat metered dose inhaler (20 sources)beta2-Adrenergic AgonistStart: 10-31-2023 End: 58-30-6070whlw 1 puff(s) by inhalation every four hours as needed for wheezingAlbuterol Sulfate 90 mcg/actuation HFA aerosol inhaler Discontinued 2 PUFF INHALATION Every 4 hoursas needed for shortness of breath or wheezing 8.5 30 2 January 09, 2024 10:26am August 13, 2024 12:13pmStart: 24-02-0541atgt 2 puff(s) by inhalation every four hours as needed for coughAlbuterol Sulfate HFA 108 (90 Base) MCG/ACT 2 puffs Inhalation every 4 hrs as needed for cough, SOBfor 30 days Mar, Activetake 2 puff(s) by inhalation every four hours as needed for coughAlbuterol Sulfate HFA 108 (90 Base) MCG/ACT INHALE 2 PUFFS EVERY 4 HOURS NEEDED FOR COUGH/ SHORTOF BREATH Activetake 2 puff(s) by inhalation every four hours as needed for coughAlbuterol Sulfate HFA 108 (90 Base) MCG/ACT INHALE 2 PUFFS EVERY 4 HOURS NEEDED FOR COUGH/ SHORTOF BREATH for 25 Active amoxicillin 875 mg oral tablet (12 sources)Penicillin-class AntibacterialStart: 07-30-2024 End: 51-06-1318ejay 1 tablet by mouth twice dailyAmoxicillin 875 mg tablet Discontinued 875 MG PO Twice daily 14 7 0 July 30, 2024 1:00am 2024 2:09pmamoxicillin 875 mg / clavulanate 125 mg oral tablet (20 sources)Penicillin-class AntibacterialStart: 02-07-2025 End: 16-29-8194epwk 1 tablet by mouth every twelve hoursAmoxicillin-Pot Clavulanate 875-125 mg tablet Discontinued 1 TAB PO Every 12 hours 14 7 0 March 01, 2025 12:00am April 23, 2025 1:41pmStart: 10-31-2023 End: 49-24-5448hchg 1 tablet by mouth every twelve hoursAmoxicillin-Pot Clavulanate 875-125 mg tablet Discontinued 1 TAB PO Every 12 hours 14 7 0 November 08, 2023 2:40pm November 17, 2023 9:36amStart: 95-53-9563dcbr 1 tablet by mouth every twelve hoursAmoxicillin-Pot Clavulanate 875-125 MG 1 tablet Orally every 12 hrs w/ food for 5 days Oct,Not-Taking/PRNatenolol 25 mg oral tablet (20 sources)beta-Adrenergic BlockerStart: 08-13-2024 End: 34-97-4262Rwfaqsew 25 mg tablet Discontinued 12.5 MG PO Daily 45 90 3 August 13, 2024 11:40am August 13, 2024 11:49amStart: 08-07-2024 End: 13-51-6457anhx 1 tablet by mouth once dailyAtenolol 25 mg tablet Discontinued 25 MG PO Daily 90 90 3 August 07, 2024 6:29pm August 13, 2024 11:40amStart: 08-06-2024 End: 28-92-7593modr 1 tablet by mouth once dailyAtenolol 25 mg tablet Discontinued 0 .ROUTE .COMPLEX 90 3 August 06, 2024 11:53pm August 07, 2024 6:30pm TAKE 1 TABLET BY MOUTH EVERY DAYStart: 10-31-2023 End: 60-25-2987Osrpblrw 25 mg tablet Discontinued 12.5 MG PO Daily October 31, 2023 12:00am August 06, 2024 11:53pmStart: 35-19-9658jdzl 0.5 tablet by mouth once dailyAtenolol 25 MG 1/2 tablet Orally Once a day for 30 days Jul, Activetake 1 tablet by mouth once dailyAtenolol 25 MG TAKE 1 TABLET BY MOUTH EVERY DAY for 90 Activebenzonatate 200 mg oral capsule (20 sources)Non-narcotic AntitussiveStart: 10-31-2023 End: 59-21-7769hohf 1 capsule by mouth three times dailyBenzonatate 200 mg capsule Discontinued 200 MG PO Three times daily October 31, 2023 12:00am November 05, 2024 2:09pmStart: 52-24-0884zlfe 1 capsule by mouth every eight hours Benzonatate 200 MG 1 capsule Orally Three times a day for 10 Oct, Active Blood-Glucose Meter (Onetouch Verio Flex Meter) [facility] (12 sources)Start: 12-21-2023 End: 44-45-1148Zthkc-Glucose Meter (Onetouch Verio Flex Meter) misc Discontinued 0 .Route 1 0 December 21, 2023 12:00am December 22, 2023 4:18pm Type 2 diabetes mellitus with hyperglycemia Type 2 diabetes mellitus with hyperglycemia As directedStart: 12-21-2023 End: 28-20-7675Axuja-Glucose Meter (Onetouch Verio Flex Meter) misc Discontinued 0 .Route 1 December 21, 2023 12:00am December 22, 2023 4:18pm As directedcycloSPORINE Opth 0.05% Emul (6 sources)Start: 27-43-6818irjawSGRZHLO Opth 0.05% Emul drop(s), q12hr, Refill(s) 0 Start Date: 05/30/24 Status: Ordered Repeatnumber: 1Start: 05-30-2024 cycloSPORINE Opth 0.05% Emul drop(s), q12hr, Refill(s) 0 Start Date: 05/30/24 Status: Ordereddoxycycline hyclate 100 mg oral capsule (12 sources)Tetracycline-class DrugStart: 07-30-2024 End: 09-88-5844ayzd 1 capsule by mouth twice dailyDoxycycline Hyclate 100 mg capsule Discontinued 100 MG PO Twice daily July 30, 2024 1:00am July 30, 2024 6:07pmfluconazole 150 mg oral tablet (16 sources)Azole AntifungalStart: 75-42-1361Pjqtrlmi 150 mg Tab 300 mg = 2 tab(s), Oral, Once, Take 1 tab by mouth. December repeat dose in 72 hoursif symptoms persist., # 2 tab(s), Refills(s) 0, Pharmacy: [facility]/pharmacy #[id number], 155, cm, 04/10/25 8:57:00 EDT, Height/Length Dosing, 80.9, kg, 04/10/25 8:57:00 EDT, Weight Dosing Start Date: 04/10/25 Status: Ordered Quantity: 2.0 Unit: tab(s) Repeat number: 1 Indications: Other specified noninflammatory disorders of vagina;Start: 14-49-9102oibcvgnelhx 150 mg Tab 150 mg = 1 tab(s), Oral, Once, If symptoms persist after 72 hours, may repeat dose. If symptoms persist after another 72 hours, may repeat 3rd and final dose., # 1 tab(s), Refills(s) 2, Pharmacy: [facility]/pharmacy #[id number], 155, cm, 03/12/25 11:55:00 EDT, Height/Length Dosing, 81.2, kg, 03/12/25 11:55:00 EDT, Weight Dosing Start Date: 03/12/25 Status: Ordered Quantity: 1.0 Unit: tab(s) Repeat number: 3 Indications: Gross hematuria;Start: 11-08-2023 End: 48-29-4506omze 1 tablet by mouth once dailyFluconazole 150 mg tablet Discontinued 150 MG PO Daily 2 14 0 November 08, 2023 12:00am January 02, 2024 9:58amFluticasone Propion-Salmeterol (20 sources)Corticosteroid, beta2-Adrenergic AgonistStart: 10-31-2023 End: 34-04-5209Fwzytcvejvr Propion-Salmeterol 250-50 mcg/dose blister with device Discontinued 1 INH INHALATION Twice daily October 31, 2023 12:00am January 02, 2024 9:58amStart: 64-73-6434prrp 1 puff(s) by inhalation twice dailyWixela Inhub 250-50 MCG/ACT 1 puff Inhalation Twice a day for 30 days May, ActivehydroCHLOROthiazide 25 mg oral tablet (20 sources)Thiazide DiureticStart: 23-39-0733jskm 1 tablet by mouth once daily as neededHydrochlorothiazide 25 mg tablet Active 25 MG PO Daily as needed for leg swelling 90 90 0 2024 3:33pm On Hold: PRN Complies with drug therapyStart: 27-84-0140riuftfryextbsuqatyx 25 mg Tab 90 EA, 0 Refill(s), TAKE 1 TABLET BY MOUTH EVERY DAY, Refills(s) 0 Start Date: 05/30/24 Status: Ordered Repeat number: 1Start: 05-20-2024 End: 08-19-3215ucer 1 tablet by mouth once dailyHydrochlorothiazide 25 mg tablet Discontinued 0 .ROUTE .COMPLEX 90 3 May 20, 2024 5:55pm May 07, 2025 3:49pm TAKE 1 TABLET BY MOUTH EVERY DAYStart: 10-31-2023 End: 25-85-2561rbxj 1 tablet by mouth once dailyHydrochlorothiazide 25 mg tablet Discontinued 25 MG PO Daily October 31, 2023 12:00am May 20, 2024 5:55pmtake 1 tablet by mouth once dailyhydroCHLOROthiazide 25 MG TAKE 1 TABLET BY MOUTH EVERY DAY for 90 ActiveLidocaine (20 sources)Antiarrhythmic, Amide Local AnestheticStart: 05-95-3378Rfqaacsbb Mar, 30 mglosartan potassium 100 mg oral tablet (20 sources)Angiotensin 2 Receptor BlockerStart: 31-35-7167dueionbp 100 mg Tab 90 EA, 0 Refill(s), TAKE 1 TABLET BY MOUTH EVERY DAY, Refills(s) 0 Start Date: Status: Ordered Repeat number: 1Start: 05-20-2024 End: 44-98-7134xycz 1 tablet by mouth once dailyLosartan 100 mg tablet Discontinued 0 .ROUTE .COMPLEX 90 3 May 20, 2024 5:55pm June 07, 2025 2:22pm TAKE 1 TABLET BY MOUTH EVERY DAYStart: 10-31-2023 End: 28-79-6808iwad 1 tablet by mouth once dailyLosartan 100 mg tablet Discontinued 100 MG PO Daily October 31, 2023 12:00am May 20, 2024 5: 55pmtake 1 tablet by mouth once dailyLosartan Potassium 100 MG TAKE 1 TABLET BY MOUTH EVERY DAY for 90 Activenitrofurantoin, macrocrystals 25 mg / nitrofurantoin, monohydrate 75 mg oral capsule (16 sources)Nitrofuran AntibacterialStart: 02-28-2025 End: 97-02-3424zpgb 1 capsule by mouth every twelve hours at mealtime Nitrofurantoin Monohyd/M-Cryst 100 mg capsule Discontinued 100 MG PO Every 12 hours 10 5 0 February 28, 2025 12:00am March 01, 2025 11:16am must administer with a meal/foodStart: 04-20-2024 End: 17-03-9550iajd 1 capsule by mouth twice daily at mealtimeNitrofurantoin Monohyd/M-Cryst (Macrobid) 100 mg capsule Discontinued 100 MG PO Twice daily 10 5 0 April 20, 2024 12:00am July 30, 2024 5:55pm must administer with a meal/food24 hr oxybutynin chloride 10 mg extended release oral tablet (20 sources)Cholinergic Muscarinic AntagonistStart: 10-31-2023 End: 26-25-4973mbxg 1 tablet by mouth once dailyOxybutynin Chloride 10 mg tablet extended release 24hr Discontinued 10 MG PO Daily October 302:00am January 02, 2024 10:19amtake 1 tablet by mouth every twenty-four hoursoxyBUTYnin Chloride ER 10 MG 1 tablet Orally Once a day Activemicroencapsulated potassium chloride 20 meq extended release oral tablet (20 sources)Start: 04-20-2024 End: 10-69-1127hixu 1 tablet by mouth once daily as neededPotassium Chloride 20 mEq tablet,ER particles/crystals Active 0 .ROUTE .COMPLEX 90 3 March 14, 2025 4:09pm On Hold: PRN TAKE 1 TABLET BY MOUTH EVERY DAY FOR 30 DAYS Complies with drug therapyStart: 12-28-2023 End: 86-56-8415Bdkjtysoy Chloride (Klor-Con M20) 20 mEq tablet,ER particles/crystals Discontinued 20 MEQ PO Daily 30 30 December 28, 2023 12:00am April 20, 2024 6:47amsulfamethoxazole 800 mg / trimethoprim 160 mg oral tablet (12 sources)Dihydrofolate Reductase Inhibitor Antibacterial, Sulfonamide AntimicrobialStart: 12-09-2023 End: 11-62-9972nxyp 1 tablet by mouth twice dailySulfamethoxazole-Trimethoprim 800-160 mg tablet Discontinued 1 TAB PO Twice daily 10 5 December 09, 2023 12:00am January 02, 2024 10:19amSuprep Bowel Prep Kit 17.5-3.13-1.6 GM/180ML (20 sources)Start: 23-63-6518Uwkqer Bowel Prep Kit 17.5-3.13-1.6 GM/180ML 1 bottle at 4pm, 1 bottle at 11pm the day prior to colonoscopy Orally Once a day for 2 day(s) Apr, Not-Taking/PRNStart: 90-50-3860Uiezou Bowel Prep Kit 17.5-3.13-1.6 GM/180ML 1 bottle at 4pm, 1 bottle at 11pm the day prior to colo noscopy Orally Once a day for 2 day(s) Apr, Not-Oaaqwe30 hr tolterodine tartrate 2 mg extended release oral capsule (20 sources)Cholinergic Muscarinic AntagonistStart: 10-31-2023 End: 18-34-5457tusg 1 capsule by mouth once dailyTolterodine 2 mg capsule,extended release 24hr Discontinued 2 MG PO Daily October 31, 2023 12:00am January 02, 2024 10:19amtake 1 capsule by mouth every twenty-four hours Tolterodine Tartrate ER 2 MG 1 capsule Orally Once a day ActivetraMADol hydrochloride 50 mg oral tablet (20 sources)Opioid AgonistStart: 12-20-2023 End: 00-21-0485mlss 1 tablet by mouth once daily as needed for painTramadol 50 mg tablet Discontinued 50 MG PO Daily as needed for pain 15 30 0 February 02, 2024 3:35pmMarch 2024 4:32pm Spondylosis of lumbar spine Spondylosis without myelopathy or radiculopathy, lumbar regionStart: 06-09-2023 End: 52-40-3587fggm 1 tablet by mouth every six hours as needed for painTramadol 50 mg tablet Discontinued 50 MG PO Every 6 hours as needed for pain 30 7 0 October 06, 2023 1:00am June 20, 2024 8:52pm Spondylosis of lumbar spine Spondylosis without myelopathy or radiculopathy, lumbar regionStart: 04-12-2023 take 1 tablet by mouth twice daily as needed for paintraMADol HCl 50 MG 1 tablet as needed Orally twice daily as needed for pain Mar, Active triamcinolone acetonide 40 mg/ml injectable suspension (20 sources)CorticosteroidStart: 10-08-4237Ilxwjep-40 Mar, 40 mg7 actuat umeclidinium 0.0625 mg/actuat / vilanterol 0.025 mg/actuat dry powder inhaler (20 sources)Anticholinergic, beta2-Adrenergic AgonistStart: 10-31-2023 End: 26-23-5537Khegrimbtnvv-Vilanterol (Anoro Ellipta) 62.5-25 mcg/actuation blister with device Discontinued 1 INH INHALATION Daily October 31, 2023 12:00am January 02, 2024 9:58amtake 1 puff(s) by inhalation once dailyAnoro Ellipta 62.5- 25 MCG/ACT 1 puff Inhalation Once a day for 30 days Activetake 1 puff(s) by inhalation once dailyAnoro Ellipta 62.5-25 MCG/ACT 1 puff Inhalation Once a day for 30 days Active Problems Active Problems Problem ClassificationProblemDateDocumented DateEpisodic/ChronicAnxiety disorders (2 sources)Generalized anxiety disorder; Translations: [Generalized anxiety disorder]ChronicBacterial infection; unspecified site (2 sources)Infection due to ESBL bacteriaOnset: [id number] Comment on above:ESBL E coli in urine 03/12/2025ESBL E coli in urineCardiac dysrhythmias (16 sources)Bradycardia; Translations: [Bradycardia, unspecified]08-13-2024 EpisodicChronic obstructive pulmonary disease and bronchiectasis (20 sources)Simple chronic bronchitis; Translations: [Simple chronic bronchitis] ChronicConditions associated with dizziness or vertigo (11 sources)Orthostatic hypotension; Translations: [Dizziness and giddiness] 04-48-3950YimcjgxzXhxddhtu atherosclerosis and other heart disease (20 sources)Coronary arteriosclerosis; Translations: [Atherosclerotic heart disease of [place] coronary artery without angina pectoris]ChronicComment on above:Echo: LVEF 65%, LAE, dilated RV w/ normal function, RVSP 64 - 03/2025 Diabetes mellitus with complications (20 sources)Type 2 diabetes mellitus; Translations: [Type 2 diabetes mellitus with hyperglycemia]Onset: 35-21-0491ZboxfouLiwkurthz of lipid metabolism (20 sources)Pure hypercholesterolemia; Translations: [Pure hypercholesterolemia, unspecified]Onset: 19-94-0115VqskfjxGkzfxyxlqkouxk and diverticulitis (19 sources)Diverticulitis of colon; Translations: [Diverticulitis of large intestine without perforation or abscess without bleeding]Onset: 05-01-2018 98-08-6078UfqqajsKmyhqnkgay disorders (20 sources)Gastro-esophageal reflux disease with esophagitis; Translations: [Gastroesophageal reflux disease with esophagitis without hemorrhage]10-31-2023 ChronicEssential hypertension (20 sources)Essential hypertension; Translations: [Essential (primary) hypertension]Onset: 48-06-5454QzpxtdpJmakcapk of upper limb (20 sources)Elbow fracture; Translations: [Unspecified fracture of lower end of unspecified humerus, initial encounter for closed fracture]Onset: 11-03-2024 01-07-4081McvjuewaSwfpejuzhounf symptoms and ill-defined conditions (12 sources)Incontinence; Translations: [Mixed incontinence]Onset: 05-30-2024 38-02-0548QhxjupjGxfgdcavkbuki symptoms and ill-defined conditions (20 sources)Oliguria and anuria; Translations: [Anuria and oliguria]Onset: 067230-06-3893CujdkzvmQmjplkgzwbmgk and screening for infectious disease (2 sources)Vaccination given; Translations: [Encounter for immunization]Episodic Menopausal disorders (10 sources)Primary ovarian failure; Translations: [Other primary ovarian failure]Onset: 64-13-2621FxafetwOnmk disorders (20 sources)Recurrent major 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; Translations: [Major depressive disorder, recurrent, in full remission]ChronicNeoplasms of unspecified nature or uncertain behavior (2 sources)Neoplasm of uncertain behavior of skin; Translations: [Neoplasm of uncertain behavior of skin]EpisodicNutritional deficiencies (2 sources)Vitamin D deficiency; Translations: [Vitamin D deficiency, unspecified]ChronicOsteoarthritis (20 sources)Osteoarthritis of knee; Translations: [Unilateral primary osteoarthritis, unspecified knee]ChronicOsteoporosis (20 sources)Senile osteoporosis; Translations: [Age-related osteoporosis without current pathological fracture]ChronicOther aftercare (2 sources)Long-term current use of drug therapy; Translations: [Other assistant terminal manager (current) drug therapy]EpisodicOther diseases of bladder and urethra (2 sources)Overactive bladder; Translations: [Overactive bladder]ChronicOther diseases of veins and lymphatics (20 sources)Peripheral venous insufficiency; Translations: [Venous insufficiency (chronic) (peripheral)]45-93-5387XqglrqnhFkcxv diseases of veins and lymphatics (1 source)Venous insufficiency (chronic) (peripheral)EpisodicOther ear and sense organ disorders (8 sources)Impacted cerumen; Translations: [Impacted cerumen, unspecified ear] 19-70-4888HlukyetvFulmt ear and sense organ disorders (4 sources)Impacted cerumen, unspecified ear; Translations: [Impacted cerumen] 48-85-5659ArffivfhWycgw female genital disorders (1 source)Noninflammatory disorder of the vagina; Translations: [Other specified noninflammatory disorders ofvagina]Onset: 23-96-5138UmdbdjmfXbnmw fractures (2 sources)Compression fracture of lumbar spine; Translations: [Wedge compression fracture of first lumbar vertebra, initial encounter for closed fracture]07-45-7663UcliqzpvBsluq inflammatory condition of skin (2 sources)Pruritus of ovydgp50-55-5734GeoqczjeIowqs injuries and conditions due to external causes (2 sources)History of fall; Translations: [History of falling]EpisodicOther lower respiratory disease (15 sources)Interstitial lung disease; Translations: [Interstitial pulmonary disease, unspecified]33-62-7467PmdhbsgZsojq lower respiratory disease (7 sources)Interstitial pulmonary disease, unspecified; Translations: [Postinflammatory pulmonary fibrosis]96-06-7455YisderoTrdjs lower respiratory disease (20 sources)Nodule of lung; Translations: [Solitary pulmonary nodule]04-04-2024 EpisodicComment on above:CT chest: 4mm nodule - 03/2023, 03/2024Other lower respiratory disease (11 sources)Solitary pulmonary nodule; Translations: [Solitary pulmonary nodule] EpisodicOther lower respiratory disease (1 source)Other forms of dyspneaEpisodicOther lower respiratory disease (10 sources)Other disorders of lung; Translations: [Other diseases of lung, not elsewhere classified]EpisodicOther lower respiratory disease (15 sources)Restrictive lung disease; Translations: [Other disorders of lung] 17-61-6799QluqqqaaUsuge lower respiratory disease (7 sources)Hypoxemia; Translations: [Hypoxemia]44-02-3620IvnousdtUbqxp non- traumatic joint disorders (20 sources)Arthralgia of the lower leg; Translations: [Pain in left knee] EpisodicOther non-traumatic joint disorders (9 sources)Pain in left knee; Translations: [Left knee pain]EpisodicOther non- traumatic joint disorders (8 sources)Pain in left shoulder; Translations: [Left shoulder pain]04-23-2025 EpisodicOther nutritional; endocrine; and metabolic disorders (20 sources)Obesity; Translations: [Obesity, unspecified] Resolved: 624554-89-4140RbrxyzeLlgvv nutritional; endocrine; and metabolic disorders (4 sources)Body mass index 40+ - severely obese; Translations: [Body mass index (BMI) 40.0-44.9, adult]Onset: 25-90-8111HnxmiuvZtnli nutritional; endocrine; and metabolic disorders (2 sources)Morbid obesity; Translations: [Morbid (severe) obesity due to excess calories]ChronicOther nutritional; endocrine; and metabolic disorders (20 sources)Body mass index 30+ - obesity; Translations: [Body mass index (BMI) 34.0-34.9, adult]ChronicOther nutritional; endocrine; and metabolic disorders (20 sources)Obesity caused by energy imbalance; Translations: [Other obesity due to excess calories]ChronicOther nutritional; endocrine; and metabolic disorders (3 sources)Other obesity due to excess caloriesChronicOther nutritional; endocrine; and metabolic disorders (2 sources)Body mass index (BMI) 34.0-34.9, adultChronicOther nutritional; endocrine; and metabolic disorders (1 source)Body mass index (BMI) 33.0-33.9, adultChronicOther screening for suspected conditions (not mental disorders or infectious disease) (20 sources)Encounter for screening mammogram for malignant neoplasm of breast; Translations: [Patient encounter status]Onset: 82-27-5867StzxtnweNnzdv skin disorders (2 sources)Hypertrophic condition of skin; Translations: [Other hypertrophic disorders of the skin]EpisodicOther upper respiratory disease (8 sources)Vasomotor rhinitis; Translations: [Vasomotor rhinitis]08-13-2024 ChronicOther upper respiratory disease (4 sources)Vasomotor rhinitis; Translations: [Allergic rhinitis, cause unspecified]69-59-0909FkqazbaXonmw upper respiratory infections (4 sources)Acute maxillary sinusitis, unspecified; Translations: [Acute maxillary sinusitis]EpisodicOtitis media and related conditions (2 sources)Eustachian tube salpingitis; Translations: [Unspecified Eustachian salpingitis, left ear]EpisodicResidual codes; unclassified (20 sources)Obstructive sleep apnea syndrome; Translations: [Obstructive sleep apnea (adult) (pediatric)]26-41-4865IjkuuzpJpmxjwjv codes; unclassified (11 sources)Obstructive sleep apnea (adult) (pediatric); Translations: [Obstructive sleep apnea (adult)(pediatric)]ChronicResidual codes; unclassified (2 sources)Postmenopausal state; Translations: [Asymptomatic menopausal state] EpisodicSpondylosis; intervertebral disc disorders; other back problems (20 sources)Lumbar spondylosis; Translations: [Spondylosis without myelopathy or radiculopathy, lumbar region]75-16-2758QaelznpKktbetqsfiz; intervertebral disc disorders; other back problems (20 sources)Pain in thoracic spine; Translations: [Pain in thoracic spine]Onset: 96-99-7162TnfdqqdsEetmgmntk-related disorders (20 sources)Tobacco dependence in remission; Translations: [Nicotine dependence, cigarettes, in remission]ChronicSuperficial injury; contusion (16 sources)Contusion of left knee; Translations: [Contusion of left knee, initial encounter]30-00-8961BeguocduGdhsl infection (2 sources)Herpes zoster with complication; Translations: [Zoster with other complications]Episodic Past or Other Problems Problem ClassificationProblemDateDocumented DateEpisodic/ChronicAbdominal pain (2 sources)Left lower quadrant pain; Translations: [Left lower quadrant pain] Onset: 25-27-2948XmhifixsHsdzq bronchitis (2 sources)Acute bronchitis; Translations: [Acute bronchitis, unspecified]Onset: 22-33-4164MdnhefhhZeilzzph mellitus without complication (2 sources)Impaired fasting glycemia; Translations: [Impaired fasting glucose] Resolved: 47-80-6507VmpqyficUkxywycu of mouth; excluding dental (2 sources)Recurrent aphthous stomatitis; Translations: [Recurrent oral aphthae] Onset: 43-38-4464RmqfeircAdlwpvoikr disorders (6 sources)Esophageal disorders; Translations: [Gastro-esophageal reflux disease with esophagitis, without bleeding]Fluid and electrolyte disorders (2 sources)Dehydration; Translations: [Dehydration]Onset: 96-02-6587Nhihgiql Other aftercare (2 sources)Other assistant terminal manager (current) drug therapy; Translations: [OTH RN CARDIOLOGY CURRENT DRUG THERAPY]Onset: 98-36-6332RncrviprLabkd and unspecified benign neoplasm (2 sources)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; Translations: [Other benign neoplasm of skin of scalp and neck]Onset: 62-01-5640JhgccliuGtgpn connective tissue disease (2 sources)Spasm; Translations: [Cramp and spasm]Onset: 50-93-6434CcfdfsvoShhea diseases of kidney and ureters (10 sources)Stricture of ureter; Translations: [Crossing vessel and stricture of ureter without hydronephrosis]Onset: 950565-12-6086LalpejvmTlddzwbftgwq (1 source)Acute cough R05.1Unclassified (1 source)Acute bilateral low back pain without sciatica M54.50Unclassified (1 source)Suspected COVID-19 virus infection Z20.822Urinary tract infections (2 sources)Acute cystitis; Translations: [Acute cystitis without hematuria] Onset: 48-25-7295Nuboaswp Results Test NameValueInterpretationReference RangeFacilityC Urineon 47-10-4367Funtdnzy identified Cx Nom (U)Microbiology PROCEDURE: Urine Culture [R1] SOURCE: U Random BODY SITE: COLLECTED DATE/TIME: 04/24/2025 15:32 EDT RECEIVED DATE/TIME: 04/25/2025 17:17 EDT START DATE/TIME: 04/25/2025 17:17 EDT FREE TEXT SOURCE: Rere BENDER, Genevieve Jernigan PA-C, Genevieve FINAL REPORTS Final Report [] Verified Date/Time: 04/27/2025 07:39 EDT 60,000 cfu/ml Escherichia coli ESBL SUSCEPTIBILITY RESULTS LEGEND: S=Susceptible, N/R=Not Reported, Blank=Data not available, [...] Locations R1: This test was performed at: [facility], [address] [place] [address], [id number] , , GbfmgjWszwnuUniversity Hospitals Parma Medical CenterComment on above:Performed By: #### [id number] #### [facility] [address] [place], [place] [id number] Visit Summaryon 15-36-4715Krdnqfzwoc Visit Summary Ambulatory Visit Summary CHELLY TILLMAN :1945 Visit Date:04/10/2025 Ambulatory Visit Instructions Your Diagnosis Mixed incontinence Gross hematuria Atrophic vaginitis Vaginal itching Your Care Team Attending Physician - Rere [...] 72 hours if symptoms persist. Pickup at [facility]/pharmacy #[id number] Unchanged albuterol (albuterol HFA 90 mcg/ inh [...] Unknown, Respiratory (Inhalation), 0 Refill(s) Pharmacy Information [facility]/pharmacy #[id number]: [address], [place] [phone] Allergies Cipro (Hives) cefaclor (Hives) Problems Ongoing [...] the vagina to get thinner and dryer. Thevagina may also shrink in size. It may [...] older than age 50. (more content not included)...[facility] 84-54-7367ZkjlqimjuCrslvlevg From: Kelly Su To: EU - Administrative; Sent: 04/10/2025 09:21:28 EDT Show up: 06/22/2025 09:21:00 EDT Subject: 6m f/u Due Date/Time: 10/11/2025 09:21:00 EST Reminder/Recall Needs scheduled with LT in 6 months with a PVR, [facility] Noteon 62-40-4561Hgemtnj Office/Clinic NoteUrology Office/Clinic Note Chief Complaint 3 month f/u [...] was over $400. Again, discussed starting Trospium aspreviously discussed. Patient wishes to discuss starting Trospium [...] the bladder, and need for repeat procedures overtime. Pt to call if interested in Botox. [...] mass, obstruction, or calcification. No bladder wall thickening,lesion, or calculus. Cytol 05/30/24 - negative S/p [...] office for recurrence of gross hematuria or futureUTI sxs. She may need repeat hematuria evaluation if she has recurrence of hematuria w/o infection.All questions answered. -Cont sxs monitoring -Pt to [...] to cover for s (more content not included)...[facility] CenterComment on above:Result Comment: Electronically Signed By: Genevieve Jernigan PA-C\.br\Date and Time Signed: 04/10/25 09:43 EDTBasophils Auto (Bld) [#/Vol]Ordered By: Edwin Mohan on 04-05-2025 Basophils (Bld) [#/Vol]0.0 10 3/uL0.0-0.1FRegency Hospital Toledo Basophils/100 WBC Auto (Bld)Ordered By: Edwin Mohan on 10-47-8675Nruiqdesg/100 WBC (Bld)0.3 %0.2-2.0[facility] HospitalCholesterol in LDL Calc [Mass/Vol]Ordered By: Edwin Mohan on 79-52-2259Aaclgrouasv in LDL [Mass/Vol] 55.8 mg/dLProtestant HospitalComment on above:<100 mg/dl ZVHFHKX752-853 mg/dl NEAR OR ABOVE IZANOAG369-438 mg/dl BORDERLINE GWDG427-137 mg/dl HIGH>190 mg/dl VERY HIGHCholesterol in VLDL Calc [Mass/Vol]Ordered By: Edwin Mohan 92-84-5336Wffysljodwi in VLDL [Mass/Vol]13.2 mg/dLProtestant HospitalEosinophils/100 WBC Auto (Bld)Ordered By: Edwin Mohan on 24-48-9420Elmmmrkwrnf/100 WBC (Bld)5.7 %0.9-7.0Pro[facility] HospitalErythrocyte distribution width Auto (RBC) [Ratio]Ordered By: Edwin Mohan 94-82-0928Cofvmgpvbmf distribution width (RBC) [Ratio]14.2 %11.0-15.0 [facility] HospitalGlobulin Calc (S) [Mass/Vol]Ordered By: Edwin Mohan on 45-58-6534Ikubkajf (S) [Mass/Vol]4.3 g/dLProtestant HospitalGlomerular filtration rate (GFR) estimation in non- AmericanOrdered By: Edwin Mohan 42-70-0494DVJ/1.73 sq M.predicted among non-blacks MDRD (S/P/Bld) [Vol rate/Area]mL/min/{1.73_m2}>=60 mL/min/1.73m 2 Protestant HospitalGlucose mean value [Mass/volume] in Blood Estimated from glycated hemoglobinOrdered By: Edwin Mohan on 08-57-1935Mexpdpw glucose Estimated from glycated hemoglobin (Bld) [Mass/Vol]120 mg/dLProtestant HospitalHematocrit Auto (Bld) [Volume fraction]Ordered By: Edwin Mohan 84-23-1702Gyqdwtmmku (Bld) [Volume fraction]42.6 %36.0-48.0 [facility] HospitalHemoglobin A1c percentageOrdered By: Edwin Mohan 06-96-0431ZfF0e (Bld) [Mass fraction]5.8 %4.5-6.2FRegency Hospital ToledoComment on above:ADA RECOMMENDED LIMIT 4.0 - 6.0ADA THERAPEUTIC TARGET < 7.0ACTION SUGGESTED> 7.0Hemoglobin [Mass/volume] in BloodOrdered By: Edwin Felecia on 80-37-0805Sxgmhgjjxf (Bld) [Mass/Vol]13.7 g/dL12.0-16.0 [facility] HospitalLaboratory - Chemistry and Chemistry - challengeOrdered By: Edwin Felecia on 43-89-7321Hfweblq [Mass/Vol]3.6 g/dL 3.4-5.0Pro[facility] HospitalALP [Catalytic activity/Vol]116 U/L 46-116Pro[facility]ant HospitalALT [Catalytic activity/Vol]25 U/L14-59 [facility] HospitalAST [Catalytic activity/Vol]22 U/L15-37 [facility] HospitalBilirubin [Mass/Vol]0.8 mg/dL0.2-1.0[facility] HospitalCalcium [Mass/Vol]9.5 mg/dL8.5-10.1FRegency Hospital ToledoChloride [Moles/Vol]106 mmol/I67-952JgyzbfkplProtestant HospitalCholesterol [Mass/Vol]118 mg/dL<=200[facility] Cholesterol in HDL [Mass/Vol]49 mg/gU04-15YxeplawpmProtestant Hospital Comment on above:> or =60 mg/dl - LOW CARDIOVASCULAR RISK<40 mg/dl - HIGH CARDIOVASCULAR RISKCO2 [Moles/Vol]26.6 mmol/L21.0-32.0Pro[facility] HospitalCreatinine [Mass/Vol]0.56 mg/dL0.55-1.02[facility] GFR/1.73 sq M.predicted MDRD (S/P/Bld) [Vol rate/Area]mL/min/{1.73_m2}>=60 mL/min/1.73m 2FRegency Hospital ToledoGlucose [Mass/Vol]109 mg/dLHigh 74-106Pro[facility] HospitalPotassium [Moles/Vol]4.4 mmol/L3.5-5.1 [facility] HospitalProtein [Mass/Vol]7.9 g/dL6.4-8.2FKettering Health Springfieldodium [Moles/Vol]140 mmol/J613-029HacmnldcnProtestant HospitalTriglyceride [Mass/Vol]66 mg/dL<=150Pro[facility]ant HospitalUrea nitrogen [Mass/Vol]16.0 mg/dL7.0-18.0Pro[facility] HospitalUrea nitrogen/Creatinine [Mass ratio]28.6 mg/mgProtestant HospitalLaboratory - Hematology and Cell countsOrdered By: Edwin Mohan on 45-92-0984Uuavxxid granulocytes/100 WBC (Bld)0.1 %0.0-0.5FRegency Hospital ToledoLeukocytes [#/volume] corrected for nucleated erythrocytes in Blood by Automated counOrdered By: Edwin Mohan on 27-08-0684WPY corrected for nucl RBC Auto (Bld) [#/Vol]7.3 10 3/uL4.0-11.0[facility] Lymphocytes Auto (Bld) [#/Vol]Ordered By: Edwin Mohan on 40-88-6302Mdanotpkmru (Bld) [#/Vol]2.1 10 3/uL1.2-3.8Pro[facility] HospitalLymphocytes/100 WBC Auto (Bld)Ordered By: Edwin Mohan on 09-69-9071Osbfmhcwtrz/100 WBC (Bld) 29.0 %20.5-60.0[facility] Auto (RBC) [Entitic mass] Ordered By: Edwin Mohan on 69-27-5713EJD (RBC) [Entitic mass]29.8 pg26.7-34.0 [facility] HospitalMCHC Auto (RBC) [Mass/Vol]Ordered By: Edwin Mohan on 96-31-6198WWFO (RBC) [Mass/Vol]32.2 g/dL29.9-35.2FBlanchard Valley Health SystemV Auto (RBC) [Entitic vol]Ordered By: Edwin Mohan on 42-49-2070UBS (RBC) [Entitic vol]92.8 fL81.0-99.0Pro[facility] HospitalMicroalbumin [Mass/volume] in UrineOrdered By: Edwin Mohan on 04-05-2025 Albumin DL <= 20 mg/L (U) [Mass/Vol]mg/dL<=30.0[facility] Monocytes Auto (Bld) [#/Vol]Ordered By: Edwin Mohan on 24-31-3357Ewqqtxbgm (Bld) [#/Vol]0.5 10 3/uL0.3-0.8Pro[facility] HospitalMonocytes/100 WBC Auto (Bld)Ordered By: Edwin Mohan on 16-24-3368Qynupvxem/100 WBC (Bld)6.9 %1.7-12.0Pro[facility] HospitalNeutrophils Auto (Bld) [#/Vol]Ordered By: Edwin Mohan on 19-60-7556Mmxemeiisnu (Bld) [#/Vol]4.2 10 3/uL1.4-6.5 [facility] HospitalNeutrophils/100 WBC Auto (Bld)Ordered By: Edwin Mohan on 36-78-1448Enjydinhzvd/100 WBC (Bld)58.0 %43.0-75.0Pro[facility] HospitalNo Panel InformationOrdered By: Edwin Mohan on 93-38-5079Awkiy Random Fnbhdceafv473.09 mg/dL20.00-300.00Pro[facility] HospitalEosinophils # (Auto)0.4 10 3/uL0.0-0.7FRegency Hospital ToledoImmature Granulocyte # (Auto)0.01 10 3/uL0.00-0.03Pro[facility] HospitalPlatelet mean volume Auto (Bld) [Entitic vol]Ordered By: Edwin Mohan on 37-24-5005Dfvhjyvs mean volume (Bld) [Entitic vol]9.9 fL9.5-13.5 [facility] HospitalPlatelets Auto (Bld) [#/Vol]Ordered By: Edwin Mohan on 42-12-3512Ycnnfnitz (Bld) [#/Vol]341 10 3/bP729-515DlewvclbnProtestant HospitalRBC Auto (Bld) [#/Vol]Ordered By: Edwin Mohan on 60-29-6959RDK (Bld) [#/Vol]4.59 10 6/uL4.20-5.40[facility] Hospitalerum or plasma albumin/globulin mass ratioOrdered By: Edwin Mohan on 86-62-9610Wuzqtwx/Globulin [Mass ratio]0.8 {ratio}[facility] Hospitalerum or plasma anion gap determinationOrdered By: Edwin Felecia on 56-85-1608Wqejk gap [Moles/Vol]11.8 mmol/LFKettering Health Springfielderum or plasma total cholesterol/high density lipoprotein (HDL) cholesterol mass rat Ordered By: Edwin Felecia on 22-32-8181Xbyljrsqmde.total/Cholesterol in HDL [Mass ratio]2.4 {ratio}[facility] HospitalComment on above:3.3 - 4.4 LOW RISK4.4 - 7.1 AVERAGE RISK7.1 - 11.0 MODERATE RISK>11.0 HIGH RISKC Urine on 94-85-3297Hlxambal identified Cx Nom (U)Microbiology PROCEDURE: Urine Culture [R1] SOURCE: U CleanCatch BODY SITE: COLLECTED DATE/TIME: 03/13/2025 14:05 EDT RECEIVED DATE/TIME: 03/14/2025 17:38 EDT START DATE/TIME: 03/14/2025 17:38 EDT FREE TEXT SOURCE: Genevieve Jernigan PA-C, PA-C, Genevieve FINAL REPORTS Final Report [] Verified Date/Time: 03/16/2025 10:02 EDT >100,000 cfu/ml Escherichia coli ESBL 1,000 cfu/ml Mixed skin contaminants SUSCEPTIBILITY RESULTS LEGEND: S=Susceptible, N/R=Not Reported, Blank=Data not available, [...] Locations R1: This test was performed at: [facility], [address] [place] [address], [address] [place] [address], HxgjarXtltroUniversity Hospitals Parma Medical CenterComment on above:Performed By: #### [id number] #### [facility] [address] [place] [id number] Urineon 04-68-8999Woqjlxba identified Cx Nom (U)Microbiology PROCEDURE: Urine Culture [R1] SOURCE: U Random BODY SITE: COLLECTED DATE/TIME: 03/12/2025 13:00 EDT RECEIVED DATE/TIME: 03/12/2025 17:27 EDT START DATE/TIME: 03/12/2025 17:27 EDT FREE TEXT SOURCE: Lacey Bustillo Alysha J FINAL REPORTS Final Report [] Verified Date/Time: 03/14/2025 12:32 EDT 50,000 cfu/ml Escherichia coli ESBL 2,000 cfu/ml Mixed skin contaminants SUSCEPTIBILITY RESULTS LEGEND: S=Susceptible, N/R=Not Reported, Blank=Data not available, [...] Locations R1: This test was performed at: [facility], [address] [place] [address], [address] , , IbefwtFrzqtiUniversity Hospitals Parma Medical CenterComment on above:Performed By: #### [id number] #### [facility] [address] [place] [address]Lfktsukweq Visit Summaryon 89-04-9919Huhtbjxdlw Visit Summary Ambulatory Visit Summary CHELLY TILLMAN [...] Genevieve Jernigan PA-C Where: [facility] [address] [address] Medications What How Much When Why Instructions [...] signed up for this yet, please contact [employer] at [phone] to get signed up today. Language Information Language assistance services are available as needed. [facility] CenterAmbulatory Visit Summaryon 31-03-6110Euszuuqxry Visit SummaryAmbulatory Visit Summary CHELLY TILLMAN :1945 Visit Date:03/12/2025 [...] Genevieve Jernigan PA-C Where: [facility] [address] [place] [address]- Medications What How Much When Why Instructions [...] signed up for this yet, please contact [employer] at [phone] to get signed up today. Language Information Language assistance services are available as needed. [facility] CenterUrinalysis with Microon 68-55-7037Wgjwk (U)see commentInvalid Interpretation [facility] CenterComment on above:Result Comment: Quantity of urine insufficient for urinalysis. Urine culture has been set up. Will credit urinalysis. Microscopic readings are only performed on those samples that meet specific criteria set forth by [facility].Performed By: #### [id number] #### [facility] [address], [place] [address]Kvricfj Ql (U)see commentInvalid Interpretation [facility]itt[facility] Medical CenterComment on above:Performed By: #### [id number] #### [facility] [address] [facility], [place] [address]RF Bloodsee commentInvalid Interpretation [facility] CenterComment on above:Performed By: #### [id number] #### [facility] [address] [facility], [place] [address]ZY Bilisee commentInvalid Interpretation [facility] Rittman Medical CenterComment on above:Performed By: #### [id number] #### [facility] [address] [facility], [place] [address]YR Claritysee commentInvalid Interpretation [facility]itt[facility] Medical CenterComment on above:Performed By: #### [id number] #### [facility] Laboratory [address] [facility], [place] [address]PC Glucosesee commentInvalid Interpretation CodePremier Health Miami Valley Hospital NorthComment on above:Performed By: #### [id number] #### [facility] Laboratory [address], [place] [address]DT Leuk Estsee commentInvalid Interpretation [facility]ittman Medical CenterComment on above:Performed By: #### [id number] #### [facility] Laboratory [address], [place] [address]VX Nitritesee commentInvalid Interpretation CodePremier Health Miami Valley Hospital NorthComment on above:Performed By: #### [id number] #### [facility] Laboratory [address], [place] [address]TE pHsee commentInvalid Interpretation Code5.0-9.0[facility] NorthComment on above:Performed By: #### [id number] #### [facility] Laboratory [address], [place] [address]XQ Proteinsee commentInvalid Interpretation [facility] Ritt[facility] Medical CenterComment on above:Performed By: #### [id number] #### [facility] Laboratory [address], [place] [address]SG Spec Gravsee commentInvalid Interpretation Code1.005-1.030 [facility] NorthComment on above:Performed By: #### [id number] #### [facility] Laboratory [address], [place] [address]CP Urobilinogensee commentInvalid Interpretation [facility]itt[facility] Medical CenterComment on above:Performed By: #### [id number] #### [facility] Laboratory [address], [place] [address]IW Spec DescClean CatchNormalPremier Health Miami Valley Hospital NorthComment on above:Performed By: #### [id number] #### [facility] Laboratory [address], [place] [address]Haxdpft Office/Clinic Noteon 88-26-9456Bwawbmi Office/Clinic NoteUrology Office/Clinic Note Chief Complaint Discuss hematuria HPI [...] mass, obstruction, or calcification. No bladder wall thickening,lesion, or calculus. Cytol 05/30/24 - negative S/p cysto 07/12/24 - 1+ trabeculations, no bladder tumors, lesions, foreign bodies. 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 Pt denies any other UTI symptoms. Pt reports that she wentto PCP office on 02/28 and was started [...] need to send her urine for culture andtreat based on those results. Pt reports that she does have bladder spasms and incontinence at baseline and she is also experiencing those today. Discussed OTC Azo with patient. Pt also reports that s he feels she is getting a yeast infection, [...] persist after 72 hours, may repeat dose. Ifsymptoms persist after another 72 hours, may repeat 3rd and final dose., # 1 tab(s), Refills(s) 2, Pharmacy: [facility]/pharmacy #[id number], 155, cm, 03/12/25 11:55:00 EDT, Hei... E&M of Est. Patient Moderate 30-39 Min 25111 Urinalysis with Micro Urine Culture Urnls Dip Stick Auto w/o Microscopy POC 49807 2. Atrophic vaginitis (N95.2: Postmenopausal atrophic vaginitis) [...] E&M of Est. Patient Moderate 30-39 Min 63175 3. Mixed incontinence (N39.46: Mixed incontinence) BBS (20-23) PVR 01/02/ - 0 ml (0 previously) UUI > [...] and potassium at different times and not velma empty stomach. Patient ultimately did not start [...] as previously discu (more content not included)... [facility] CenterComment on above:Result Comment: Electronically Signed By: Lacey Bustillo.br\Date and Time Signed: 03/12/25 13:12 EDT Laboratory - Chemistry and Chemistry - challengeOrdered By: Edwin Mohan on 22-31-5650Dhoynfowc Ql (U)NegativeProtestant HospitalGlucose (U) [Mass/Vol]NegativeProtestant HospitalKetones Ql (U)Negative Protestant HospitalpH (U)6.5 [pH][facility] Specific gravity (U) [Rel density]1.000[facility] Urobilinogen (U) [Mass/Vol]0.2 mg/dLProtestant HospitalLaboratory - Specimen informationOrdered By: Edwin Mohan on 84-68-0470Bwiiqbtztd (U) cloudyProtestant HospitalColor (U)darkyellowProtestant HospitalLaboratory - UrinalysisOrdered By: Edwin Mohan on 02-28-2025 Leukocyte esterase Test strip Ql (U)++Protestant HospitalNitrite Ql (U)NegativeProtestant HospitalProtein Ql (U)++Protestant HospitalNo Panel InformationOrdered By: Edwin Mohan on 66-90-6523Hwsnr Occult Blood+++Protestant HospitalXR elbow RT min 3V*on 60-08-3579RX elbow RT min 3V*[facility] [address] [facility] [place] [address] XRay Report Signed Patient: Chelly Tillman MR#: [id number] 267 : 1945 Acct:[id number] Age/Sex: 79 / F ADM Date: 02/05/25 Loc: SOXD Room: Type: [facility] Attending Dr: Wilfred Orozco DO Copies to: [...] Jr., D.OVasquez 02/05/2025 4:15 PM Dictation Location: [place] [address] Transcribed By: [facility] 02/05/25 161 Dictated By: Chencho Hernandez Jr, DO 02/05/25 1614 Signed By: 02/05/25 [facility]5TGH [facility] Physician GroupAmbulatory Visit Summaryon 64-34-0167Kgngudbbie Visit SummaryAmbulatory Visit Summary CHELLY TILLMAN :1945 Visit Date:01/02/2025 Ambulatory Visit Instructions Your Diagnosis Mixed incontinence Gross hematuria Your Care Team Attending Physician - Gneevieve Jernigan PA-C Primary Care Physician - EDWIN [...] you for choosing us for your care. [facility] MarylandUrology Office/Clinic Noteon 53-68-8214Bddoyjg Office/Clinic NoteUrology Office/Clinic Note HPI Staff 6 month f/u [...] an indwelling catheter or need for in/out c atheterization to empty the bladder, and need for repeat procedures over time (usually lasts up to six months), as well as fatigue and insomnia, among others. There is a minimal risk of Botox entering the blood stream and causing neurological problems, which is quite rare. Full informed consent hasbeen obtained. Will order Local anesthesia. Physical Exam [...] and potassium at different times and not velma empty stomach. Patient ultimately did not start [...] send Gemtesa 75 mg PO daily to [facility] to see if medication will be [...] and SNM discussed at length at today's visit.All questions answered. Will start Gemtesa 75 mg [...] understanding. -Send Gemtesa 75mg PO daily to [facility]. -If not covered, consider starting Trospium 20mg PO daily (if pt wishes). If she starts, aggressivebowel regimen recommended -Increase water intake, avoid bladder irritants -Timed voids, double voids -Avoid constipation, cont daily fiber -F/U 3 months w/ PVR, call sooner if needed Ordered: vibegron, 75 mg = 1 tab(s), Oral, Daily, X 30 day(s), # 30 tab(s), Refills(s) 3, Pharmacy: [facility], 155, cm, 01/02/25 14:55:00 EDT, Height/Length Dosing, 80.9, kg, 01/02/25 14:55:00 EDT, Weight Dosing 62802 Measure Post Void residual urine and/or bladder [...] Urnls Dip Stick Auto w/o Microscopy POC 26211 2. Gross hematuria (R31.0: Gross hematuria) Former smoker x41 yrs. No occupational exposure. No fam hx of cancers. Recent hematuria work-up negative: CT AP w con 11/11/23 TBH - No renal mass, obstruction, or calcification. No bladder wall thickening,lesion, or calculus. Cytol 05/30/24 - negative S/p cysto 07/12/24 - 1+ trabeculations, no bladder tumors, lesions, foreign b (more content not included)...[facility] CenterComment on above: Result Comment: Electronically Signed By: Rere BENDER, Genevieve\.br\Date and Time Signed: 01/02/25 16:02 EDTX-ray reportOrdered By: Chencho Hernandez on 12-11-2024 [facility] [address] [place] [id number] XRay Report Signed Patient: Chelly Tillman MR#: [id number] : 1945 Acct:[id number] Age/Sex: 79 / F ADM Date: 5 Loc: SOXD Room: Type: [facility] Attending Dr: Wilfred Orozco DO Copies to: [...] 10:26 PM Dictation Location: RADIO-PC-18 Transcribed By: [facility] 12/11/242225 Dictated By: Chencho Hernandez Jr, DO 12/11/242224 Signed By: 12/11/242225 Protestant HospitalXR elbow RT min 3V*on 05-80-7629ZP elbow RT min 3V*[facility] [address] [place] [address] XRay Report Signed Patient: Chelly Tillman MR#: [id number] 267 : 1945 Acct:[id number] Age/Sex: 79 / F ADM Date: 12/11/24 Loc: [facility] Room: Type: [facility] Attending Dr: Wilfred Orozco DO Copies to: [...] 10:26 PM Dictation Location: RADIO-PC-18 Transcribed By: [facility] 12/11/242225 Dictated By: Chencho Hernandez Jr, DO 12/11/242224 Signed By: 12/11/242225T[facility] Physician GroupX-ray reportOrdered By: Chiara Choi on 90-88-5010Ugtrn reportMCCULLOUGH-HYDE [facility]IAL [facility] [address] [place] [address] XRay Report Signed Patient: Chelly Tillman MR#: [id number] : 1945 Acct:[id number] Age/Sex: 79 / F ADM Date: 5 Loc: [facility] [place] Room: Type: REG CLI Attending Dr: Wilfred Orozco DO Copies to: Wilfred Orozco DO~ Ordering Provider: Wilfred Orozco DO Date of Service: 11/06/24 XR/XR elbow RT min 3V*: S52.124D - Nondisplaced fracture of head of right radius,... RIGHT ELBOW - 4 VIEWS CLINICAL HISTORY: Follow-up radial fracture COMPARISON: 11/03/2024 AP, lateral and both oblique views were obtained. A similar minimally displacedintra-articular fracture at the radial head is again seen, without change There is no new fracture or dislocation. A small amount of joint fluid is seen. XR/XR elbow RT min 3V* IMPRESSION: STABLE RADIAL FRACTURE. Impression dictated by: Chiara Choi M.D.11/06/2024 4:17 PM Dictation Location: [place] [address] Transcribed By: [facility] 11/06/24 1617 Dictated By: Chiara Choi MD 11/06/24 1609 Signed By: 11/06/24 1615 [facility] Work Phone: XR elbow RT min 3V*on 90-65-0503DX elbow RT min 3V* [facility] [address] [place] [address] XRay Report Signed Patient: Chelly Tillman MR#: [id number] 267 : 1945 Acct:[id number] Age/Sex: 79 / F ADM Date: 11/06/24 Loc: [facility] [place] Room: Type: REG CLI Attending Dr: Wilfred [...] Choi MD 11/06/24 1609 Signed By: 11/06/24 1617T[facility] Physician GroupX-ray reportOrdered By: Cornelio Young on 41-37-6963Dkfrp report[address] [address] XRay Report Signed Patient: Chelly Tillman MR#: [id number] : 1945 Acct:[id number] Age/Sex: 79 / F ADM Date: 5 Loc: ER Room: Type: [facility] ER Attending Dr: Copies to: Roberto [...] PM Dictation Location: RADIO-PC-20 Transcribed By: ANAYELI 11/03/24 1708 Dictated By: Cornelio Young DO 11/03/24 170 Signed By: 11/03/24 1708 Protestant HospitalXR elbow RT min 3V*on 97-29-2808VI elbow RT min 3V*[facility] [place] [address] XRay Report Signed Patient: Chelly Tillman MR#: [id number] 267 : 1945 Acct:[id number] Age/Sex: 79 / F ADM Date: 11/03/24 Loc: ER Room: Type: [facility] ER Attending Dr: Copies to: Roberto [...] Cornelio Young M.D.11/03/2024 5:08 PM Dictation Location: [facility]-PC-20 Transcribed By: [facility] 11/03/241707 Dictated By: Cornelio Young DO 11/03/24 170 Signed By: 11/03/24 1708T[facility] Physician GroupEstimated glomerular filtration rate (GFR) non- Americanon 93-44-5701SHZ/1.73 sq M.predicted among non- blacks MDRD (S/P/Bld) [Vol rate/Area]Estimated glomerular filtration rate (GFR) non->=60 mL/min/1.73m 2FRegency Hospital ToledoGlobulin Calc (S) [Mass/Vol]on 55-96-7368Oonvrmoi (S) [Mass/Vol]Serum globulin measurement by calculation (mass/volume)[facility] - Chemistry and Chemistry - challengeon 17-03-4331Wctwmfz [Mass/Vol] 3.5 g/dL3.4-5.0Protestant HospitalALP [Catalytic activity/Vol]107 U/W08-213WnwjuekelProtestant HospitalALT [Catalytic activity/Vol]17 U/L 14-59Protestant HospitalAST [Catalytic activity/Vol]16 U/L15-37 Protestant HospitalBilirubin [Mass/Vol]0.6 mg/dL0.2-1.0Protestant HospitalCalcium [Mass/Vol]9.5 mg/dL8.5-10.1FRegency Hospital ToledoChloride [Moles/Vol]105 mmol/T49-937DkxrdgfxfProtestant HospitalCO2 [Moles/Vol]28.8 mmol/L21.0-32.0[facility] Creatinine [Mass/Vol]0.71 mg/dL0.55-1.02[facility] GFR/1.73 sq M.predicted MDRD (S/P/Bld) [Vol rate/Area]mL/min/{1.73_m2}>=60 mL/min/1.73m 2FRegency Hospital ToledoGlucose [Mass/Vol]106 mg/eH15-105 Protestant HospitalPotassium [Moles/Vol]4.4 mmol/L3.5-5.1FRegency Hospital ToledoProtein [Mass/Vol]7.4 g/dL6.4-8.2FKettering Health Springfieldodium [Moles/Vol]141 mmol/U016-182NkoykzbajProtestant HospitalUrea nitrogen [Mass/Vol]13.0 mg/dL7.0-18.0Protestant HospitalUrea nitrogen/Creatinine [Mass ratio]18.3 mg/mgMercy Health [place] Hospitalerum or plasma albumin/globulin mass ratioon 73-02-9291Ugibpka/Globulin [Mass ratio]Serum or plasma albumin/globulin mass ratioMercy Health [place] Hospitalerum or plasma anion gap determinationon 71-07-5383Xabdy gap [Moles/Vol]Serum or plasma anion gap determinationProtestant HospitalUrine Cytology ([facility])on 06-28-2915Zczimtnqfdi exam Cytology (U) [Interp]Diagnosis InfoInvalid Interpretation [facility] Comment on above:Result Comment: A:Urine,Clean Catch:Bladder Wash Interpretation - Adequate cellularity for evaluation. CPT 90791 MicroScopic Description - Adequacy - Gross Description Site ID:A color Yellow fixative Alcohol Specimen designated Clean Catch received in alcohol preservative and labeled with the patient???s name, consists of 40ml clear yellow fluid. Electronically signed by : on: 06/04/2024 15:27:59Performed By: #### [id number] #### [facility] [address] [place], [place] [address]Zflcrlqwij Visit Summaryon 62-64-5431Aemuuvvvmf Visit Summary Ambulatory Visit Summary CHELLY TILLMAN [...] URO When: Comments: sched cysto Where: [address] [place] [address] [phone] Medications What How Much When Instructions New estradiol topical (Estrace 0.1 mg/ g Cream) See instructions Refills: 1 Apply a pea-sized amount to the vagina/ urethra 3x/ week for a month, then 2x/ week for maintenance Pickup at [facility]/pharmacy #6105 New vibegron (Gemtesa 75 mg oral tablet) 1 Tablets By Mouth Every day Refills: 11 Pickup at [facility]/pharmacy #6132 Unchanged albuterol (albuterol HFA 90 mcg/ inh [...] Opth 0.05% Emul) Every 12 hours Contact prescribingphysician if questions or concerns Unchanged escitalopram (escitalopram [...] questions or concerns Pharmacy Information [facility]/pharmacy #[id number]: [address], [place] [phone] Allergies No active allergies Problems Ongoing - [...] many urinary cancers. Follo (more content not included)...NormalPremier Health [facility] Hospital NorthUrine Cytology ([facility])on 07-67-9460FG Method of ExtractionBladder UrineNoMartin Memorial HospitalComment on above:Performed By: #### [id number] #### [facility] Laboratory [address] [place] [address]PZ Number of Hpxb1Bsifztl Interpretation [facility] CenterComment on above:Performed By: #### [id number] #### [facility] Laboratory [address], [place] [address]KG SpecimenClean CatchNoMartin Memorial HospitalComment on above:Performed By: #### [id number] #### [facility] [address], [place] [address]YO Type of ServiceTechnical OnlyUniversity Hospitals Parma Medical CenterComment on above:Performed By: #### [id number] #### [facility] Laboratory [address], [place] [address]Qzxcdfd Office/Clinic Noteon 57-58-0847Fmlxlwh Office/Clinic NoteUrology Office/Clinic Note Chief Complaint Patient in ofice due to hematuria HPI Staff 79 year old female new patient referred for gross hematuria. Patient had a CT in October that was negative for renal or bladder mass. She was referred to our office to complete the hematuria work up per her PCP Dr. Mhoan. Patient noted at last appointment with Dr. [...] implications of hematuria with patient. These include: Prostaticdisease, trauma, Tumor, infection/inflammation, stones, period/menses (pseudohematuria), obstructive [...] +/- biofeedback, and tri (more content not included)...[facility]ma Medical CenterComment on above:Result Comment: Electronically Signed By: Evgeny CHO, Kari Bob\.br\Date and Time Signed: 05/30/24 10:40EDT\.br\Electronically Co-Signed By: Manuela Emanuel\.br\Date and Time Co-Signed: 05/30/24 09:17 EDTMG MAMM SCREEN 3D JESSENIA CADon 50-98-3102RO MAMM SCREEN 3D JESSENIA CADPatient: CHELLY TILLMAN Exam Date: 05/25/2022 : 1945 Gender:F Ordering : DR EDWIN MOHAN D.O. Admission #: [id number] Family : Order #: [id number] CLICK HERE TO VIEW EXAM RADIOLOGY REPORT [...] Family Cancers None LOCATION: [facility] BREAST COMPOSITION: Scattered areas fibroglandular density. [...] by: Bharti Paige MD on 05/26/2022 at 07:48NormalThRegency Hospital Cleveland WestCBC AUTO DIFFon 57-10-2255HERN #0.0 103/ulNormal0.0-0.1Clermont County HospitalComment on above:Performed By: #### CBC #### [facility] Laboratory [address] [place], [place] [address] Dr. Eduardo Nealsophils/100 WBC (Bld)0.3 %Normal0.2-2.0[facility] Comment on above:Performed By: #### CBC #### [facility] [address] [place] [address] [address] Eduardo Grady #0.3 103/ulNormal0.0-0.7The [facility] Med[facility] HospitalComment on above: Performed By: #### CBC #### [facility] [address] [place] [address] Dr. Eduardo Arguetaosinophils/100 WBC (Bld)4.3 %Normal0.9-7.0[facility] Comment on above:Performed By: #### CBC #### [facility] [address] [place] [address] Dr. Eduardo Arguetarythrocyte distribution width (RBC) [Ratio]13.7 %Pqvfwz39.0-15.0 The [facility]tering Memorial Hospitalment on above:Performed By: #### CBC #### [facility] [address] [place] [address] Dr. Eduardo SeguraHematocrit (Bld) [Volume fraction]42.6 %Kygfvz23.0-48.0The [facility] HospitalComment on above:Performed By: #### CBC #### [facility] [address] [place] [address] Dr. Eduardo SeguraHemoglobin (Bld) [Mass/Vol]14.1 g/dQYxfgfi58.0-16.0The [facility] Memorial Hospitalment on above:Performed By: #### CBC #### [facility] [address] [place] [address] Dr. Eduardo Tuttle #0.02 10e3/ulNormal0.00-0.03The [facility] HospitalComment on above:Performed By: #### CBC #### [facility] [address] [place] [address] Dr. Eduardo Tuttle %0.3 %Normal0.0-0.5The [facility]tering Memorial Hospitalment on above: Performed By: #### CBC #### [facility] [address] [place] [address] Dr. Eduardo BarnesH #2.3 103/ulNormal1.2-3.8The [facility] HospitalComment on above:Performed By: #### CBC #### [facility] [address] [place] [address] Dr. Eduardo SeguraLymphocytes/100 WBC (Bld)31.9 %Jiaqlk27.5-60.0The [facility] Memorial Hospitalment on above:Performed By: #### CBC #### [facility] [address] [place] [address] Dr. Eduardo FrancisUAL DIFF REQNONormalThe [facility] HospitalComment on above: Performed By: #### CBC #### [facility] [address] [place] [address] Dr. Eduardo Celaya (RBC) [Entitic mass]31.1 mnVqdmpi81.7-34.0The [facility] HospitalComment on above:Performed By: #### CBC #### [facility] [address] [place] [address] Dr. Eduardo Celaya (RBC) [Mass/Vol]33.1 g/fXAkvalq45.9-35.2The [facility] HospitalComment on above:Performed By: #### CBC #### [facility] [address] [place] [address] Dr. Eduardo Celaya (RBC) [Entitic vol]94.0 qDPtsvbb80.0-99.0The [facility] HospitalComment on above:Performed By: #### CBC #### [facility] [address] [place] [address] Dr. Eduardo Loco #0.6 103/ulNormal0.3-0.8The [facility] HospitalComment on above:Performed By: #### CBC #### [facility] [address] [place] [address] Dr. Eduardo Santizoocytes/100 WBC (Bld)7.7 %Normal1.7-12.0The [facility] Comment on above:Performed By: #### CBC #### [facility] [address] [place] [address] Dr. Eduardo Jeffery #4.0 103/ulNormal1.4-6.5The [facility] HospitalComment on above:Performed By: #### CBC #### [facility] [address] [place] [address] Dr. Eduardo SeguraNeutrophils/100 WBC (Bld)55.5 %Fwhiso60.0-75.0The [facility] on above:Performed By: #### CBC #### [facility] [address] [place] [address] Dr. Eduardo SeguraPlatelet mean volume (Bld) [Entitic vol]10.2 fLNormal9.5-13.5The [facility] on above:Performed By: #### CBC #### [facility] [address] [place] [address] Dr. Eduardo SeguraPLT286 103/rmOavbxo388-434Gga [facility] on above: Performed By: #### CBC #### [facility] [address] [place] [address] Dr. Eduardo SeguraRBC4.53 106/ulNormal4.20-5.40The [facility] on above:Performed By: #### CBC #### [facility] [address] [place] [address] Dr. Eduardo SeguraWBC7.2 103/ulNormal4.0-11.0The [facility] on above: Performed By: #### CBC #### [facility] [address] [place] [address] Dr. Eduardo SeguraGLYCOHEMOGLOBIN A1Con 01-77-9124JUE RECOMMENDATIONSEE BELOWNormal The [facility] HospitalComascension macomb[facility] on above:Result Comment: ADA RECOMMENDED LIMIT 4.0 - 6.0 ADA THERAPEUTIC TARGET < 7.0 ACTION SUGGESTED > 7.0Performed By: #### A1C #### [facility] [address] [place] [address] Dr. Eduardo SeguraGlucose [Mass/Vol]134 mg/dLNormalThe [facility] on above:Performed By: #### A1C #### [facility] [address] [place] [address] Dr. Eduardo SeguraHbA1c (Bld) [Mass fraction]6.3 %Critically high4.5-6.2Clermont County HospitalComment on above:Performed By: #### A1C #### [facility] [address] [place] [address] Dr. Eduardo GarnerID PROFILEon 06-48-2562IXYR-HDL RATIO NORMSEE BELOWUC Medical CenterComment on above:Result Comment: 3.3 - 4.4 LOW RISK 4.4 - 7.1 AVERAGE RISK 7.1 - 11.0 MODERATE RISK >11.0 HIGH RISKPerformed By: #### BMP, LIPID, ALT #### [facility] [address] [place] [address] [address] Eduardo SeguraCholesterol [Mass/Vol]154 mg/dLNormal<=200The [facility] Comment on above:Performed By: #### BMP, LIPID, ALT #### [facility] [address] [place] [address] Dr. Eduardo SeguraCholesterol in HDL [Mass/Vol]60 mg/cAGqhrgl39-67Ovw [facility] HospitalComment on above:Performed By: #### BMP, LIPID, ALT #### [facility] [facility] [address] [address] [address] Eduardo Galarzaesterol in LDL [Mass/Vol]75.4 mg/dLNoFairfield Medical CenterComment on above:Performed By: #### BMP, LIPID, ALT #### [facility] [address] [place] [address] Dr. Eduardo Galarzaesterlarisa.total/Cholesterol in HDL [Mass ratio]2.6 {ratio} NormalClermont County HospitalComment on above:Performed By: #### BMP, LIPID, ALT #### [facility] [address] [address] [address] Eduardo Diamond NORMAL> or = 60 mg/dl - LOW CARDIOVASCULAR RISK <40 mg/dl - HIGH CARDIOVASCULAR RISKNoFairfield Medical CenterComment on above:Performed By: #### BMP, LIPID, ALT #### [facility] [address] [place] [address] Dr. Yilan ChangLDL CALC NORMALSEE BELOWUC Medical CenterComment on above:Result Comment: <100 mg/dl OPTIMAL 100 - 129 mg/dl NEAR OR ABOVE OPTIMAL 130 - 159 mg/dl BORDERLINE HIGH 160 - 189 mg/dl HIGH >190 mg/dl VERY HIGH Performed By: #### BMP, LIPID, ALT #### [facility] [address] [address] [address] Eduardo SeguraTriglyceride [Mass/Vol]93 mg/dLNormal<=150[facility] Comment on above:Performed By: #### BMP, LIPID, ALT #### [facility] [address] [address] [address] Eduardo SeguraVLDL CALC18.6 mg/dLUC Medical CenterComment on above: Performed By: #### BMP, LIPID, ALT #### [facility] [address] [place] [address] Dr. Eduardo SeguraPROF CHEM 8 (BAS METB)on 32-84-1757Pzhsx gap [Moles/Vol]15.0 mmol/LNormalClermont County HospitalComment on above:Performed By: #### BMP, LIPID, ALT #### [facility] [address] [address] [address] Eduardo SeguraCalcium [Mass/Vol]9.8 mg/dLNormal8.5-10.1[facility] Comment on above:Performed By: #### BMP, LIPID, ALT #### [facility] [address] [address] [address] Eduardo SeguraChloride [Moles/Vol]105 mmol/YFopzwx49-088MfjClermont County Hospital Comment on above:Performed By: #### BMP, LIPID, ALT #### [facility] [address] [address] [address] Eduardo SeguraCO2 [Moles/Vol]25.2 mmol/XApokel28.0-32.0[facility] Comment on above:Performed By: #### BMP, LIPID, ALT #### [facility] [address] [address] [address] Eduardo SeguraCreatinine [Mass/Vol]0.77 mg/dLNormal0.55-1.02The [facility] HospitalComment on above:Performed By: #### BMP, LIPID, ALT #### [facility] [address] [address] [address] Eduardo ArguetaGFR-AF COSTA RICAN>60Normal>=60The [facility] HospitalComment on above:Performed By: #### BMP, LIPID, ALT #### [facility] [address] [address] [address] Eduardo ArguetaGFR-NON AF COSTA RICAN>60Normal>=60The [facility] HospitalComment on above:Performed By: #### BMP, LIPID, ALT #### [facility] [address] [address] [address] Eduardo SeguraGlucose [Mass/Vol]142 mg/dLCritically pbrh67-098Owx [facility] HospitalComment on above:Performed By: #### BMP, LIPID, ALT #### [facility] [address] [address] [address] Eduardo SeguraPotassium [Moles/Vol]4.2 mmol/LNormal3.5-5.1[facility] Comment on above:Performed By: #### BMP, LIPID, ALT #### [facility] [address] [place] [address] Dr. Eduardo SeguraSodium [Moles/Vol]141 mmol/LJrdijv952-776GomClermont County Hospital Comment on above:Performed By: #### BMP, LIPID, ALT #### [facility] [address] [address] [address] Eduardo SeguraUrea nitrogen [Mass/Vol]17.0 mg/dLNormal7.0-18.0The [facility] HospitalComment on above:Performed By: #### BMP, LIPID, ALT #### [facility] [address] [place] [address] Dr. Eduardo SeguraUrea nitrogen/Creatinine [Mass ratio]22.1 mg/mgNormalThe [facility] HospitalComment on above:Performed By: #### BMP, LIPID, ALT #### [facility] [address] [address] [address] [facility]ardo [facility]uraB[facility] [id number] [Catalytic activity/Vol]20 U/PZkimsp54-59Lor [facility] HospitalComment on above:Performed By: #### BMP, LIPID, ALT #### [facility] [address] [address] [address] Eduardo Segura Vital Signs Date TimeVital SignValuePerforming SnaatbbhhNsjqvvnu05-94-9276 13:38-0400Body cmiagz928.94 cmBenjamin Ball DO Work Phone: [phone])[address]10-17-2025 13:38-0400 Body mass index (BMI) [Ratio]33.7 kg/w2Rdrwthrw Ball DO Work Phone: 1(694)[address] [place], [place] 5701310-17-2025 13:38-0400 Body peebre60.85 kgBenjamin Ball DO Work Phone: 1(425)[address] [place], [place] 5701310-17-2025 13:38-0400 Diastolic blood kgnhedxv19 mm[Hg]Edwin Ball DO Work Phone: [phone])[address]10-17-2025 13:38-0400 Heart rate56 /minBenjamin Ball DO Work Phone: 1(072)[address] [place], [place] 5701310-17-2025 13:38-0400 Respiratory rate12 /minBenjamin Ball DO Work Phone: 1(432)[facility] [place], [place] 4983110-17-2025 13:38-0400 Systolic blood ilrguexg032 mm[Hg]Edwin Ball DO Work Phone: 1(229)[address]09-19-2025 14:26-0400 Body .94 cmBenjamin Ball DO Work Phone: 1(663)[address] [place], [place] 5701309-19-2025 14:26-0400 Body mass index (BMI) [Ratio]34.2 kg/k9Ohrwpcfv Ball DO Work Phone: 1(535)[address] [place], [place] 5701309-19-2025 14:26-0400 Body cicqoe93.1 kgBenjamin Ball DO Work Phone: 1(419)499-[address] [place], [place] 4983109-19-2025 14:26-0400 Diastolic blood hxugqkjo97 mm[Hg]Edwin Ball DO Work Phone: 1(419)[facility] [place], [place] 4983109-19-2025 14:26-0400 Heart rate60 /minBenjamin Ball DO Work Phone: 1419)[address] [place], [place] 5701309-19-2025 14:26-0400 Respiratory rate12 /minBenjamin Ball DO Work Phone: 1(419)[address] [place], [place] 5701309-19-2025 14:26-0400 Systolic blood ywcuprvy445 mm[Hg]Edwin Ball DO Work Phone: 1(419)[address] [place], [place] 5701309-16-2025 15:12-0400 Body yvyipg042.94 cmBenjamin Ball DO Work Phone: 1419)[address] [place], [place] 5701309-16-2025 15:12-0400 Body mass index (BMI) [Ratio]34.2 kg/p7Lyniqmze Ball DO Work Phone: 1(419)[address] [place], [place] 5701309-16-2025 15:12-0400 Body xikrzr43.1 kgBenjamin Ball DO Work Phone: 1(419)[address] [place], [place] 5701309-16-2025 15:12-0400 Diastolic blood mm[Hg]Edwin Ball DO Work Phone: 1(419)[address] [place], [place] 5701309-16-2025 15:12-0400 Heart rate60 /minBenjamin Ball DO Work Phone: 1(419)[facility] [place], [place] 49[address]109-16-2025 15:12-0400 Respiratory rate12 /minBenjamin Ball DO Work Phone: 1(419)[address] [place], [place] 5701309-16-2025 15:12-0400 Systolic blood ravaquej324 mm[Hg]Edwin Ball DO Work Phone: 1(419)[address] [place], [place] 57[address]309-02-2025 13:44-0400 Body .94 cmBenjamin Ball DO Work Phone: 1(419)406-[address] [place], [place] 4983109-02-2025 13:44-0400 Body mass index (BMI) [Ratio]34.2 kg/n3Kznxriwq Ball DO Work Phone: 1419)[address] [place], [place] 5701309-02-2025 13:44-0400 Body uojofg15.1 kgBenjamin Ball DO Work Phone: 1419)[address] [place], [place] 5701309-02-2025 13:44-0400 Diastolic blood hexsqskc28 mm[Hg]Edwin Ball DO Work Phone: 1419)[address] [place], [place] 5701309-02-2025 13:44-0400 Heart rate50 /minBenjamin Ball DO Work Phone: 1419)[address] [place], [place] 5701309-02-2025 13:44-0400 Respiratory rate12 /minBenjamin Ball DO Work Phone: 1419)[address] [place], [place] 5701309-02-2025 13:44-0400 Systolic blood mvntbtxi262 mm[Hg]Edwin Ball DO Work Phone: 1419)[address] [place], [place] 5701306-19-2025 09:53-0400 Body .94 cmBenjamin Ball DO Work Phone: 1(954)[address] [place], [place] 5701306-19-2025 09:53-0400 Body mass index (BMI) [Ratio]34.2 kg/d6Dlvomylp Ball DO Work Phone: 1(717)[address] [place], [place] 5701306-19-2025 09:53-0400 Body thseyk03.15 kgBenjamin Ball DO Work Phone: 1419)[address] [place], [place] 5701306-19-2025 09:53-0400 Diastolic blood uyjtxwhv74 mm[Hg]Edwin Ball DO Work Phone: 1419)[address] [place], [place] 5701306-19-2025 09:53-0400 Heart rate59 /minBenjamin Ball DO Work Phone: 1419)[address] [place], [place] 5701306-19-2025 09:53-0400 Respiratory rate12 /minBenjamin Ball DO Work Phone: [facility]06-19-2025 09:53-0400 Systolic blood hvmyifuz575 mm[Hg]Edwin Ball DO Work Phone: 1(324)252-95[facility]06-09-2025 14:41-0400 Body eifmoi478.94 cmBenjamin Ball DO Work Phone: 1(306)389-[address] [place], [place] 49[address]106-09-2025 14:41-0400 Body mass index (BMI) [Ratio]34.8 kg/j1Puhgddlb Ball DO Work Phone: 1(331)239[facility]55[facility]06-09-2025 14:41-0400 Body tnahcs21.63 kgBenjamin Ball DO Work Phone: 1(147)[address]06-09-2025 14:41-0400 Diastolic blood tjonhywr52 mm[Hg]Edwin Ball DO Work Phone: 1(578)677-[address] [place], [place] 4983106-09-2025 14:41-0400 Heart rate69 /minBenjamin Ball DO Work Phone: 1(519)935-[address] [place], [place] 4983106-09-2025 14:41-0400 Respiratory rate12 /minBenjamin Ball DO Work Phone: 1(739)023-86[facility]06-09-2025 14:41-0400 Systolic blood mm[Hg]Edwin Ball DO Work Phone: 1(493)078-10[facility]2025 14:40-0400 Blood Pressure Joelle Jernigan [facility]2025 14:40-0400Body msaavdtwfyz96.16 [degF]Genevieve Jernigan [facility]2025 14:40-0400Diastolic blood ywgdgsor24 mm[Hg]Genevieve Jernigan [facility]2025 14:40-0400Heart rate54 /minLauren Rere [facility]2025 14:40-0400Respiratory rate18 /minLauren Rere [facility]2025 14:40-0400Systolic blood fekccwii705 mm[Hg]Genevieve Jernigan [facility]03-18-2025 12:30-0400Body tqudku845.94 cmBenjamin Ball DO Work Phone: 1(735)316-94[facility]03-18-2025 12:30-0400 Body mass index (BMI) [Ratio]35.5 kg/g3Bvbfxhso Ball DO Work Phone: 1(379)958-97[facility]03-18-2025 12:30-0400 Body .27 kgBenjamin Ball DO Work Phone: 1(241)016-61[facility]03-17-2025 14:08-0400 Body .94 cmBenjamin Ball DO Work Phone: 1(906)659-[address] [place], [place] 4983103-17-2025 14:08-0400 Body mass index (BMI) [Ratio]35.5 kg/g5Ffqkcypi Ball DO Work Phone: 1(111)813-[address] [place], [place] 4983103-17-2025 14:08-0400 Body .27 kgBenjamin Ball DO Work Phone: 1(079)392-63[facility]03-17-2025 14:08-0400 Diastolic blood ougmfbxc64 mm[Hg]Edwin Ball DO Work Phone: 1(986)373-71[facility]03-17-2025 14:08-0400 Heart rate56 /minBenjamin Ball DO Work Phone: 1(945)831-30[facility]03-17-2025 14:08-0400 Respiratory rate12 /minBenjamin Ball DO Work Phone: 1(185)[facility] [place], [place] [address]103-17-2025 14:08-0400 SaO2% (BldA) [Mass fraction]96 %Edwin Ball DO Work Phone: 1(709)[facility] [place], [place] 49[address]103-17-2025 14:08-0400 Systolic blood dnymqntm422 mm[Hg]Edwin Ball DO Work Phone: 1(854)[address] [place], [place] 5701303-15-2025 17:50-0400 Diastolic blood nolwrmzo74 mm[Hg]Edwin Ball DO Work Phone: 1(712)[address] [place], [place] 5701303-15-2025 17:50-0400 Systolic blood nubfgyhx053 mm[Hg]Edwin Ball DO Work Phone: 1(363)[address] [place], [place] 5701303-15-2025 16:40-0400 Body hjywhc068.94 cmBenjamin Ball DO Work Phone: 1(336)[address] [place], [place] 5701303-15-2025 16:40-0400 Body jawumharwja85.6 [degF]Edwin Ball DO Work Phone: 1(384)[address] [place], [place] 5701303-15-2025 16:40-0400 Body mgaggk00 kgBenjamin Ball DO Work Phone: 1(372)[address] [place], [place] 5701303-15-2025 16:40-0400 Diastolic blood eirxmpxj86 mm[Hg]Edwin Ball DO Work Phone: 1(635)[facility] [place], [place] 49[address]103-15-2025 16:40-0400 Heart rate57 /minBenjamin Ball DO Work Phone: 1(366)[facility] [place], [place] 49[address]103-15-2025 16:40-0400 Respiratory rate20 /minBenjamin Ball DO Work Phone: 1(374)[facility] [place], [place] 49[address]103-15-2025 16:40-0400 SaO2% (BldA) [Mass fraction]93 %Edwin Ball DO Work Phone: 1(535)[address] [place], [place] 5701303-15-2025 16:40-0400 Systolic blood mm[Hg]Edwin Ball DO Work Phone: [facility]12-23-2024 10:32-0500 Body mebdpl652.1 cmBenjamin Ball DO Work Phone: 1(982)050-46[facility]12-23-2024 10:32-0500 Body mass index (BMI) [Ratio]31.6 kg/j6Rekyuvvw Ball DO Work Phone: 1(643)531-71[facility]12-23-2024 10:32-0500 Body jgeral48.18 kgBenjamin Ball DO Work Phone: 1(028)833-22[facility]12-23-2024 10:32-0500 Diastolic blood zvljsapr96 mm[Hg]Edwin Ball DO Work Phone: 1(717)988-91[facility]12-23-2024 10:32-0500 Heart rate55 /minBenjamin Ball DO Work Phone: 1(170)670-22[facility]12-23-2024 10:32-0500 Respiratory rate12 /minBenjamin Ball DO Work Phone: 1(410)696-95[facility]12-23-2024 10:32-0500 Systolic blood cetyigwh817 mm[Hg]Edwin Ball DO Work Phone: 1(956)816-54[facility]12-19-2023 15:00-0500 Body cejdnw339.1 cmBenjamin Ball Other [employer] Other [id number] 15:00-0500Body mass index (BMI) [Ratio] 32.88 kg/b3Wrbzrooe Ball Other [employer] Other [id number] 15:00-0500Body qvpxbe78.63 kgBenjamin Ball Other [employer] Other 12-19-2023 15:00-0500Diastolic blood hcightxi56 mm[Hg] Edwin Ball Other [employer] Other 12-19-2023 15:00-0500Respiratory rate12 /minBenjamin Ball Other [employer] Other 12-19-2023 15:00-0500Systolic blood qedvljbu100 mm[Hg] Edwin Ball Other [employer] Other 10-18-2023 14:15-0400Body .1 cmBenjamin Ball Other [employer] Other 10-18-2023 14:15-0400Body mass index (BMI) [Ratio] 33.71 kg/c3Dlqzdqcu Ball Other [employer] Other 10-18-2023 14:15-0400Body suqygs92.9 kgBenjamin Ball Other [employer] Other 10-18-2023 14:15-0400Diastolic blood zlielown97 mm[Hg] Edwin Ball Other [employer] Other 10-18-2023 14:15-0400Respiratory rate12 /minBenjamin Ball Other [employer] Other 10-18-2023 14:15-0400Systolic blood xxpaweeq724 mm[Hg] Edwin Ball Other [employer] Other 10-13-2023 11:30-0400Body awfzss826.1 cmBenjamin Ball Other [employer] Other 10-13-2023 11:30-0400Body mass index (BMI) [Ratio] 33.71 kg/x0Agdaotuw Ball Other [employer] Other 10-13-2023 11:30-0400Body fachqq98.9 kgBenjamin Ball Other [employer] Other 10-13-2023 11:30-0400Diastolic blood rnhezjmz48 mm[Hg] Edwin Ball Other [employer] Other 10-13-2023 11:30-0400Respiratory rate12 /minBenjamin Ball Other [employer] Other 10-13-2023 11:30-0400Systolic blood mrgzlohs988 mm[Hg] Edwin Ball Other [employer] Other 08-22-2023 10:45-0400Body rekzpu514.1 cmBenjamin Ball Other [employer] Other 08-22-2023 10:45-0400Body mass index (BMI) [Ratio] 34.61 kg/x7Ndjjnmdu Ball Other [employer] Other 08-22-2023 10:45-0400Body plidpk43.35 kgBenjamin Ball Other [employer] Other 08-22-2023 10:45-0400Diastolic blood jlsshiis50 mm[Hg] Edwin Ball Other [employer] Other 08-22-2023 10:45-0400Respiratory rate20 /minBenjamin Ball Other [employer] Other 08-22-2023 10:45-0400Systolic blood mm[Hg] Edwin Ball Other [employer] Other 08-08-2023 10:30-0400Body idktof865.1 cmBenjamin Ball Other [employer] Other 08-08-2023 10:30-0400Body mass index (BMI) [Ratio] 34.48 kg/m0Lccezeez Ball Other [employer] Other 08-08-2023 10:30-0400Body lpeyij66.99 kgBenjamin Ball Other [employer] Other 08-08-2023 10:30-0400Diastolic blood faqfkaeg35 mm[Hg] Edwin Ball Other [employer] Other 08-08-2023 10:30-0400Respiratory rate12 /minBenjamin Ball Other [employer] Other 08-08-2023 10:30-0400Systolic blood izqxthgm681 mm[Hg] Edwin Ball Other [employer] Other 04-06-2023 11:30-0400Body wbndfe643.1 cmBenjamin Ball Other [employer] Other 04-06-2023 11:30-0400Body mass index (BMI) [Ratio] 35.61 kg/q0Gdczqtmb Ball Other [employer] Other 04-06-2023 11:30-0400Body ideetm72.07 kgBenjamin Ball Other [employer] Other 04-06-2023 11:30-0400Diastolic blood mm[Hg] Edwin Mohan Other [facility] [employer] Other 04-06-2023 11:30-0400Respiratory rate12 /minBenkyle Mohan Other [facility] [employer] Other 04-06-2023 11:30-0400Systolic blood mm[Hg] Edwin Mohan Other [facility] [employer] Other Encounters Encounter DateEncounter TypeCare ProviderFacilityStart: 06-07-2025 End: 50-12-5103gntqdihsebLyjycgqh Ball DO Work Phone: [facility]Start: 06-07[facility]2025 End: 17-43-2691Wcgmrlz encounter procedureBenjamin Felecia DO-[facility] Work Phone: Start: 05-10-2025 End: 74-77-4112ydrxjwkfjmGzlsunhk Ball DO Work Phone: [facility] Work Phone: Start: 05-10-2025 End: 30-70-8800Ocfeswt encounter procedureBenjamin Felecia DO-[facility] Work Phone: Start: 05-07-2025 End: 50-40-9907twslbuifmeKlajmgtc Ball DO Work Phone: [facility] Work Phone: Start: 05-07-2025 End: 07-58-2763Jonmrpc encounter procedureBenjamin Felecia DO-[facility] Work Phone: Start: 04-24-2025 End: 32-27-7927nuuwwoepioZanxwj TannaFacility:FTMCStart: 04-24-2025 End: 53-34-5176Zevaiyg encounter procedureKari Pepper [facility] start: 04-23-2025 End: 62-99-3900qhhzcwwlskSsxjijvs Ball DO Work Phone: [facility] Work Phone: Start: 04-23-2025 End: 54-23-8849Mfdhzey encounter procedureBeluiskyle Mohan DO-[facility] Work Phone: Start: 04-10-2025 End: 47-07-5543hhpopshnueSxnguj TannaFacility:EU [place]vueStart: 04-10-2025 End: 68-78-2681Ieozcrc encounter procedureGenevieve Jernigan [facility] start: 49-30-1087Tlr-patient / Non-visitBeluiskyle Mohan DO-[facility] Work Phone: Start: 03-13-2025 End: 87-06-1563sdhallnxodFyssva TannaFacility:FTMCStart: 03-13-2025 End: 56-24-2900Pnvchfr encounter procedureGenevieve [facility]ernigan [facility] start: 03-12-2025 End: 50-15-0414kxuxqsoukcUudzkl J GaleaFacility:FTMCStart: 03-12-2025 End: 50-91-9551bhiakvxzepBuxtjw J GaleaFacility:EU [place]walkStart: 03-12-2025 End: 46-30-6333Pwywteb encounter procedureAlysha J Waltea [facility] Start: 02-28-2025 End: 11-68-0181kdpkjjfxarWozhrark Ball DO Work Phone: [facility] Work Phone: Start: 02-28-2025 End: 07-33-5176Herrxit encounter procedureBenjamin Ball DO-[facility] Work Phone: Start: 02-07-2025 End: 06-51-8074Kqjrrba encounter procedureBenjamin Ball DO-[facility] Work Phone: Start: 02-05-2025 End: 74-34-7861Eksxzur encounter procedureWilfred Orozco DO-[facility] Work Phone: Start: 02-05-2025 End: 05-45-6543rlnthyttlaSldsfmoe BallFacility:[facility] Start: 02-05-2025 End: 54-09-8764Pmyuwjm encounter procedureWilfred Orozco DO-[facility] Start: 01-28-2025 End: 28-90-2723stxywvkbraPjniecep Ball DO Work Phone: [facility] Work Phone: Start: 01-28-2025 End: 41-00-0081Jdvmaay encounter procedureBenjamin Ball DO Work Phone: [facility] Work Phone: Start: 01-02-2025 End: 14-43-0781cgusmrmasgMlcpfl TannaFacility:EU [place]Start: 01-02-2025 End: 51-06-1219Tkjyqjz encounter procedureLauren Rere [facility] [place] start: 12-11-2024 End: 50-93-3448ksirfrmbbxXqzqpyxa Ball DO Work Phone: [facility] Work Phone: Start: 12-11-2024 End: 28-51-4508Hfeecvo encounter procedureBenjamin Ball DO Work Phone: [facility] Work Phone: Start: 12-11-2024 End: 98-86-6785Nachpbd encounter procedureBenjamin Ball DO Work Phone: [facility] Start: 12-11-2024 End: 94-85-5138ukgzpulxizXglnpftm Ball DO Work Phone: [facility] Work Phone: Start: 11-06-2024 End: 11-31-7045vmmdyvexbqTofvukwh Ball DO Work Phone: [facility] Work Phone: Start: 11-06-2024 End: 11-92-1424Iecltpp encounter procedureBenjamin Ball DO Work Phone: [facility] Work Phone: Start: 11-06-2024 End: 49-30-5483Nvfhunj encounter procedureBenjamin Ball DO Work Phone: [facility] Start: 11-06-2024 End: 97-79-5743hdykadssgdVudubqwd Ball DO Work Phone: [facility] Work Phone: start: 11-05-2024 End: 17-42-3082zsyzcbwtwoLtxcqsil Ball DO Work Phone: [facility] Work Phone: Start: 11-05-2024 End: 81-85-2056Bfjlvhz encounter procedureBenjamin Ball DO Work Phone: [facility] Work Phone: Start: 11-03-2024 End: 45-30-7630Sbpcrwduk department patient visitBenjamin Ball DO Work Phone: [facility] Work Phone: start: 97-54-2949Jvi-patient / Non-visitBenkyle Mohan DO Work Phone: [facility] Work Phone: Start: 08-13-2024 End: 90-25-3648Lbfczih encounter procedureBenkyle Mohan DO Work Phone: [facility] Work Phone: Start: 07-12-2024 End: 33-70-1833tzuwbbqjfxQzbxe M. LueFacility:CD:[id number]: 05-30-2024 End: 01-26-4548Kcf Drop offKathy M. Lue [facility] Start: 05-30-2024 End: 58-75-6460lfftryighwXdzbr M. LueFacility:FTMCStart: 05-30-2024 End: 75-23-5221Mvfhldm encounter procedureKathy M. Lue [facility] start: 74-71-7426vwmbsgnsilQgwtj LueFacility:EU Betty Start: 04-03-2024 End: 71-02-8866jfigerljaoWJPLVTNN D ZAHLERNot AvailableStart: 01-17-2024 End: 58-73-2930itxtapxupuKGDSEHBM D EALERNot AvailableStart: 10-14-2023 End: 55-72-3476jqtzuhxeazWccxzswe Ball Other [facility] Other Start: 27-53-7602Kmxcgeyol encounterBenkyle MohanBENSON HOSPITAL [facility] Centertart: 09-19-2023 End: 79-61-3031iwymteilgzPWNGJSVD Boni Ramírez AvailableStart: 08-12-2023 End: 33-51-7419qyeqmfzwuhTfqzjpog Ball Other [employer] Other Start: 40-98-0167Vobujxgcb encounterBenjamin BallFPG [facility] ClinicStart: 08-11-2023 End: 79-49-2152jhobwfsbjeKhwgwryd Ball Other [employer] Other Start: 61-83-8933Nkfhwctkl encounterBenjamin BallFPG [facility] ClinicStart: 08-09-2023 End: 71-89-4059agzatkmyocWhvoacsd Ball Other [facility] [employer] Other Start: 52-37-9802Ymaqsw outpatient visit 25 minutes Edwin BallFPG [facility] ClinicStart: 08-04-2023 End: 59-54-0221tfhgtzgvuiKtscyopg Ball Other [facility] [employer] Other Start: 38-89-7615Yjouiqhrc encounterBenjamin BallFPG [facility] ClinicStart: 08-02-2023 End: 90-10-4657ynajzgbdelMKMIXY K STRACKNot AvailableStart: 07-25-2023 End: 27-44-7055onpowszalsWblijfd Vytautas Giedraitis MDFacility:PM Kel Start: 07-19-2023 End: 54-87-3585fiejanbrozPwzjjxwc Ball Other [facility] [employer] Other Start: 34-95-7768Rkjjln outpatient visit 15 minutes Edwin BallFPG [facility] ClinicStart: 06-20-2023 End: 81-50-8040bekmiozxkyPzfkhrn Vytautas Giedraitis MDFacility:PM Kel Start: 06-16-2023 End: 96-35-0923mhygrjhwyqQesquqjz Ball Other [employer] Other Start: 66-50-7361Xrhmipqdh encounterBenjamin BallFPG [facility] ClinicStart: 06-15-2023 End: 93-96-3437fztsnoooriOwmisltd Ball Other [facility] [employer] Other Start: 72-67-8645Qvudfxfah encounterBenjamin BallFPG [facility] ClinicStart: 06-13-2023 End: 40-26-3770egndmjzifiNcdaghs Vytautas Giedraitis MDFacility:PM [place] Start: 06-09-2023 End: 87-57-9720idtghfuytoRwsopltv Ball Other [employer] [facility] [employer] Other Start: 52-18-4101Moznclqho encounterBenjamin BallFPG [facility] ClinicStart: 06-08-2023 End: 53-12-2620xfqdfyrutlKcverkwu Ball Other [employer] [facility] [employer] Other Start: 09-52-5252Zmgvhu outpatient visit 15 minutes Edwin BallFPG [facility] ClinicStart: 06-03-2023 End: 67-02-7639lnxupzzjwzNxixydbk Ball Other [facility] [employer] Other Start: 24-70-7279Tupxyd outpatient visit 25 minutes Edwin BallFPG [facility] ClinicStart: 05-25-2023 End: 38-51-3147bpkefnadboLwnavhau Ball Other [facility] [employer] Other Start: 96-11-1360Sprcgcpbm encounterBenjamin BallFPG [facility] ClinicStart: 05-23-2023 End: 87-57-5241cbidqtlfjbLE Edwin Ball Work Phone: [facility] Work Phone: Start: 05-23-2023 End: 28-52-8190Iekagpm encounter procedureDO Edwin Ball Work Phone: [facility] Work Phone: Start: 04-21-2023 End: 52-69-5264fbqvwoipidZsoodfws Ball Other [employer] Other Start: 93-38-8994Qnmnlofyq encounterBenjamin BallFPG [facility] ClinicStart: 04-20-2023 End: 30-22-6348qmymsvrzxsKcisnlgd Ball Other [employer] Other Start: 94-36-5153Wtyyvgfpl encounterBenjamin BallFPG [facility] ClinicStart: 04-18-2023 End: 58-25-4371tuwchkljsiRjjtryih Ball Other [employer] Other Start: 70-90-2726Lktsnnupu encounterBenjamin BallFPG [facility] ClinicStart: 04-12-2023 End: 81-90-1561wjfmdkajgdKcundnho Ball Other [employer] Other Start: 29-45-2204Bomtce outpatient visit 15 minutes Edwin BallFPG [facility] ClinicStart: 35-62-2631Rvwpgmcgd encounterBenjamin BallFPG [facility] ClinicStart: 04-07-2023 End: 26-06-2546pxhugauyydTbxsvmxd Ball Other [employer] Other Start: 58-12-4003Saxmczdei encounterBenjamin BallFPG [facility] ClinicStart: 03-29-2023 End: 03-43-9832zdcwsymyesJgndzeyw Ball Other [employer] Other Start: 40-46-9016Njcxiq outpatient visit 15 minutes Edwin BallFPG [facility] ClinicStart: 95-47-8693ymicionkhrWW EDWIN BALL Facility:Y3Kfhwu: 11-30-2022 End: 91-84-6165yltozburqhUleqpegn Ball Other [employer] Other Start: 66-87-9396Hwsbussva encounterBenjamin BallFPG [facility] ClinicStart: 11-28-2022 End: 61-29-8910ylhdktikfwXzoyoqaq Ball Other [employer] Other Start: 05-57-8930Zimdtxcxv encounterBenjamin BallFPG [facility] ClinicStart: 11-25-2022 End: 39-25-0534pmmapfviplHkocgrqy Ball Other [employer] Other Start: 45-59-1100Uawaucj encounter procedureBenjamin BallFPG [facility] ClinicStart: 11-08-2022 End: 85-75-9942gnmpvcphxyNgmcowdj Ball Other [employer] Other Start: 20-64-9264Vbjlszcig encounterBenjamin BallFPG [facility] ClinicStart: 11-01-2022 End: 42-23-3817fuczqfmjhoOtvgoqlu Ball Other [employer] Other Start: 90-31-1012Jpmoxt outpatient visit 15 minutes Edwin BallFPG [facility] ClinicStart: 10-19-2022 End: 59-17-9661eozmrsjsctMcpkpisk Ball Other [employer] Other Start: 59-57-2462Ndpcevqxx encounterBenjamin BallFPG [facility] Medical ClinicStart: 08-15-7425Atjtu health examinationBenjamin Ball Other [employer] Other Start: 05-25-2022 End: 37-31-3994snudkiongqEM EDWIN BALLFacility:B3Czvxy: 03-27-2022 End: 47-30-4429sgzzhbmgiqRX EDWIN BALLFacility:H1 Procedures DateProcedureProcedure DetailPerforming ClinicianStart: 69-57-5284Lkslh X-ray of right elbowBenjamin Ball DO Work Phone: Start: 31-83-3815Kgvmb X-ray of right elbowBenjamin Ball DO Work Phone: Start: 41-37-2509Giisq X-ray of right elbowBenjamin Ball DO Work Phone: Start: 35-89-3895Jglss X-ray of right elbowBenjamin Ball DO Work Phone: Start: 36-28-2643Zzxzaqgag for malignant neoplasm of colonBenjamin Ball Other Start: 21-07-3107Stfgyychl for osteoporosisBenjamin Ball Other Cataract (disorder)Kari Lue ColonoscopyKathy Lue Depression screeningBenjamin Ball Other H/O: hysterectomyKathy Lue History of tonsillectomyKathy Lue Screening for malignant neoplasm of breastBenjamin Ball Other Screening for malignant neoplasm of skinBenjamin Ball Other Plan of Treatment DateCare ActivityDetailAuthorStart: 47-33-9997Evsgy X-ray of right elbowXR elbow RT min 3V*[facility]tart: 23-04-0553BM Elbow - right GE [address] [facility]tart: 58-26-6920Ntxxh X-ray of right elbowXR elbow RT min 3V*[facility] Hospitaltart: 68-15-2271BX Elbow - right GE 3 [facility] HospitalComprehensive metabolic 2000 panel - Serum or PlasmaProtestant HospitalCT Chest WO contrastProtestant HospitalPatient EducationHocking Valley Community [facility]tr Work Phone: Patient referralHocking Valley [facility] Work Phone: US Heart TransthoracicProtestant HospitalXR Humerus - left [facility] HospitalXR Knee - left 4 [facility] Immunizations Immunization DateImmunizationNotesCare LlcppabhXsuzfvaq73-37-2853jgopbtnoq, high dose seasonal, preservative-freeBenjamin Ball DO Work Phone: [facility]04-17-2025COVID-19 (PFIZER) 12Y and olderBenjamin Ball DO Work Phone: [facility]03-11-2025zoster vaccine recombinantBenjamin Ball DO Work Phone: [facility]09-29-2024tetanus toxoid, reduced diphtheria toxoid, and acellular pertussis vaccine, adsorbed Kari Lue [facility]09-19-2024COVID-19 (PFIZER) 12Y and olderBenjamin Ball DO Work Phone: [facility]09-19-2024influenza virus vaccine, unspecified formulationKathy Lue [facility]09-19-2024influenza, high dose seasonal, preservative-freeBenjamin Ball DO Work Phone: [facility]08-18-2024zoster vaccine recombinantKathy Lue [facility]11-17-2023RSV, preF3, adj, pfBenjamin Ball DO Work Phone: [facility]10-02-2023COVID-19 (PFIZER) 12Y and olderBenjamin Ball DO Work Phone: [facility]09-26-2023Influenza vaccine, quadrivalent, adjuvantedBenjamin Ball DO Work Phone: [facility]09-26-2023influenza virus vaccine, unspecified formulationKathy Lue [facility]11-12-2022influenza virus vaccine, unspecified formulationBenjamin Ball DO Work Phone: [facility]11-12-2022influenza, high dose seasonal, preservative-freeBenjamin Ball Other [employer] Other 137976-05-6073usmaaonye, high dose seasonal, preservative-freeBenjamin Ball Other [employer] Other [id number] QIV High-Dose 65YR+Edwin Ball DO Work Phone: [facility]11-02-2022influenza virus vaccine, unspecified formulationKathy Lue [facility]09-27-2022COVID-19 Pfizer (bivalent)Edwin Felecia Other [facility]04-23-2022COVID-19 PfizerBenjamin Ball Other [facility]04-23-2022COVID-19 Vaccine Pfizer - Documentation Purposes OnlyBenjamin Ball Other [facility]04-23-2022SARS-CoV-2 mRNA (lqjbrkdezbw-msge-djqyhqd) vaccineKathy Lue [facility]11-30-2021influenza virus vaccine, split virus (incl. purified surface antigen)Edwin Mohan Other [facility] [employer] Other [id number] virus vaccine, unspecified formulationBenjamin Ball DO Work Phone: [facility]10-01-2021COVID-19 Vaccine Pfizer - Documentation Purposes OnlyBenjamin Ball Other [facility] on above:Result Comment: 2024-05-30: [id number]-84 Vaccine Pfizer - Documentation Purposes OnlyBenjamin Ball Other [facility] on above:Result Comment: 2024-05-30: [id number]-35 Vaccine Moderna - Documentation Purposes OnlyBenjamin Ball Other [facility]01-27-2021COVID-19 Vaccine Pfizer - Documentation Purposes OnlyBenjamin Ball Other [facility] on above:Result Comment: 2024-05-30: [id number] virus vaccine, split virus (incl. purified surface antigen)Edwin Mohan Other [facility] [employer] Other [id number] virus vaccine, unspecified formulationBenjamin Ball DO Work Phone: [facility]09-27-2019 pneumococcal polysaccharide vaccine, 23 valentBenjamin Ball Other [facility]09-10-2018 pneumococcal polysaccharide vaccine, 23 valentBenjamin Ball Other [facility]12-12-2017diphtheria, tetanus toxoids and acellular pertussis vaccine, unspecified formulationBenkyle Mohan Other [facility]04-01-2017 pneumococcal polysaccharide vaccine, 23 valentKatfabian Lue [facility]10-15-2015pneumococcal conjugate vaccine, 13 valentBenjamin Ball Other [facility]10-14-2015 pneumococcal conjugate vaccine, 13 valentBenjamin Ball Other [facility] Payers DatePayer CategoryPayerPolicy [id number] Health [id number] 2023Medicare2023Private Health Insurance [id number] [id number] Health [id number] [id number] 2.0.1.668709.3.57[id number] 2.0.1.082104.3.57[id number] 2.840.1.608461.3.57[id number] 2.840.1.583511.3.57[id number] 2.840.1.222252.3.57[id number] 2.840.1.263136.3.57[id number] 2.16.840.1.769323.3.57[id number] 2.16840.1.580761.3.57[id number] 2.16840.1.302158.3.579.2.[id number] 2.16840.1.916776.3.57[id number] 2.840.1.217472.3.57[id number] 2.840.1.561592.3.57[id number] 2.0.1.003080.3.57[id number] 2.840.1.913006.3.57[id number] 2.840.1.686649.3.57[id number] 2..1.979161.3.57[id number] 2.840.1.859408.3.57[id number] 2.840.1.770718.3.57[id number] 2.840.1.008968.3.579.2.[id number] 2.840.1.380061.3.579.[id number] 2.16.840.1.568170.3.57[id number] 2.16.840.1.3[id number] 2.16.840.1.786399.3.579.2.531 [id number] 2..840.1.2[id number] 2.16.840.1.5[id number] 2..840.1.774894.3.579.2.531 Social History DateTypeDetailFacilitySex Assigned At [facility]tart: 07-28-9201Tyn [facility]igned At [facility]iptart: 05-30-2024 End: 97-38-4988Uvxuppm smoking statusEx-smoker (finding)[facility]: 11-[facility]-2024 End: 77-00-5890Uflsanl smoking status NHISNever smoked tobacco (finding) [facility]tart: 12-03-2009 End: 36-39-5813FeiRrcqud (finding)[facility] HospitalTocc smoking statusNeverExec[facility] Sexual OrientationExec[facility] Medical Equipment Procedure CodeEquipment CodeEquipment Original TextEquipment IdentifierDates Blood Sugar Diagnostic (Accu-Chek Guide Test Strips) stripStart: 46-25-6848Yuwfq Sugar Diagnostic (Onetouch Verio Test Strips) stripStart: 12-21-2023 End: 83-63-8535Zovjt Sugar Diagnostic (Accu-Chek Guide Test Strips) stripStart: 53-74-0699Vjcwv Sugar Diagnostic (Onetouch Verio Test Strips) stripStart: 12-21-2023 End: 79-42-6729Unhyn Sugar Diagnostic (Accu-Chek Guide Test Strips) stripStart: 82-22-0575Pngau Sugar Diagnostic (Onetouch Verio Test Strips) stripStart: 12-21-2023 End: 67-98-7578Tnefb Sugar Diagnostic (Accu-Chek Guide Test Strips) stripStart: 44-74-6592Pnqat Sugar Diagnostic (Onetouch Verio Test Strips) stripStart: 12-21-2023 End: 26-60-7904Ipabh Sugar Diagnostic (Accu-Chek Guide Test Strips) stripStart: 14-28-7097Vlenu Sugar Diagnostic (Onetouch Verio Test Strips) stripStart: 12-21-2023 End: 58-36-8188Uwbns Sugar Diagnostic (Accu-Chek Guide Test Strips) stripStart: 80-15-5562Uosor Sugar Diagnostic (Onetouch Verio Test Strips) stripStart: 12-21-2023 End: 60-89-9780Fgzvu Sugar Diagnostic (Accu-Chek Guide Test Strips) stripStart: 39-17-4149Qflal Sugar Diagnostic (Onetouch Verio Test Strips) stripStart: 12-21-2023 End: 81-67-9572Ejegb Sugar Diagnostic (Accu-Chek Guide Test Strips) stripStart: 28-24-3363Bkojy Sugar Diagnostic (Onetouch Verio Test Strips) stripStart: 12-21-2023 End: 49-86-4253Olicy Sugar Diagnostic (Accu-Chek Guide Test Strips) stripStart: 49-71-9598Pkoqg Sugar Diagnostic (Accu-Chek Guide Test Strips) stripStart: 12-22-2023 End: 77-98-6335Zbrzq Sugar Diagnostic ([employer] Verio Test Strips) stripStart: 12-21-2023 End: 35-80-2708Fgxvq Sugar Diagnostic (Accu-Chek Guide Test Strips) stripStart: 36-12-8808Nhfea Sugar Diagnostic (Accu-Chek Guide Test Strips) stripStart: 12-22-2023 End: 52-16-2071Kuvwk Sugar Diagnostic (Onetouch Verio Test Strips) stripStart: 12-21-2023 End: 55-10-0764Bydyd Sugar Diagnostic (Accu-Chek Guide Test Strips) stripStart: 61-52-0908Vchbc Sugar Diagnostic (Accu-Chek Guide Test Strips) stripStart: 12-22-2023 End: 08-71-9464Etfgt Sugar Diagnostic (Onetouch Verio Test Strips) stripStart: 12-21-2023 End: 04-91-9763Aastv Sugar Diagnostic (Accu-Chek Guide Test Strips) stripStart: 07-80-4852Niely Sugar Diagnostic (Accu-Chek Guide Test Strips) stripStart: 12-22-2023 End: 53-30-6966Cvhtr Sugar Diagnostic (Onetouch Verio Test Strips) stripStart: 12-21-2023 End: 12-22-2023 Functional Status MrctUrrbivioulEcbgwvXxjbgmbu77-98-5474Jpwwvwjsnp StatusN/AExec[facility]rology of [facility]10-09-2024Functional StatusN/A[facility] Clinical Notes 10-19-2022 to 04-23-2025 Note Date & QtrtUdnyOglobfgm38-66-7413 Evaluation note* Diagnosis Onset Date Resolution Status Admit Date Contusion of knee, left acuteSeptember 2024 1:32pmContusion of shoulder, leftacuteSeptember 2024 1:32pmEssential hypertensionacuteSeptember 2024 1:32pmExercise hypoxemiaacuteSept2024 1:32pmInterstitial lung diseaseacuteSept2024 1:32pmLeft knee painacuteSeptember 2024 1:32pmOrthostatic lightheadednessacuteSeptember 2024 1:32pmShoulder pain, leftacuteSeptember 2024 1:32pmType 2 diabetes mellitus with hyperglycemiaacuteSept2024 1:32pmEssential hypertensionacuteSeptember 2024 2:57pmObesityacute Pham 2024 2:57pmOrthostatic lightheadednessacuteSeptember 2024 2:57pmType 2 diabetes mellitus with hyperglycemiaacuteSept2024 2:57pm [facility] Work Phone: 1(863) 334-333609-02-2025 Evaluation note* Diagnosis Onset Date Resolution Status Admit Date Contusion of knee, left acuteSeptember 2024 1:32pmContusion of shoulder, leftacuteSeptember 2024 1:32pmEssential hypertensionacuteSeptember 2024 1:32pmExercise hypoxemiaacuteSeptember 2024 1:32pmInterstitial lung diseaseacuteSeptember 2024 1:32pmLeft knee painacuteSeptember 2024 1:32pmOrthostatic lightheadednessacuteSeptember 2024 1:32pmShoulder pain, leftacuteSeptember 2024 1:32pmType 2 diabetes mellitus with hyperglycemiaacuteSeptember 2024 1:32pmEssential hypertensionacuteSeptember 2024 2:57pmObesityacute May 07, 2025 2:57pmOrthostatic lightheadednessacuteSeptember 2024 2:57pmType 2 diabetes mellitus with hyperglycemiaacuteSeptember 2024 2:57pmCompression fracture of L1 lumbar vertebraacuteSeptember 2024 1:56pm Low back painacuteSeptember 2024 1:56pmLumbar spondylosisacuteSept2024 1:56pmASHD (arteriosclerotic heart disease)acuteOctober 2024 1:22pmCigarette nicotine dependence in remissionacuteOctober 2024 1:22pm Essential hypertensionacuteOctober 2024 1:22pmLumbar spondylosisacute June 07, 2025 1:22pmOSA (obstructive sleep apnea)acuteOctober 2024 1:22pmPulmonary noduleacuteOctober 2024 1:22pmPure hypercholesterolemia acuteOctober 2024 1:22pmRestrictive lung diseaseacuteOctober 2024 1:22pmType 2 diabetes mellitus with hyperglycemiaacuteOctober 2024 1:22pm [facility] Work Phone: 1(490) 167-640408-20-2025 Hospital Discharge instructions Patient Education 04/10/2025 09:39:07 Atrophic Vaginitis [...] the vagina to get thinner and dryer. Thevagina may also shrink in size. It may [...] symptoms are. Treatment may include: Using an hcrj-llt-dzwxtqj vaginal lubricant before sex. Using a long-acting [...] Follow these instructions at home: Medicines Take ugwr-rpz-dcumesr and prescription medicines only as told by your health care provider. Do not use herbal or alternative medicines unless your health care provider says that you can. Use jpll-lqn-gyizhws creams, lubricants, or moisturizers for dryness only [...] line the vagina become dry and thin. Itis most common in women who have stopped [...] provider. Document Revised: 02/05/2021 Document Reviewed: 02/05/2021 [employer] Patient Education 2023 [employer]. 04/10/2025 09:39:03 Urinary Incontinence Urinary Incontinence Urinary [...] (electrical nerve stimulation). ?For women, using a territory sales manager medical to prevent urine leaks. This is a [...] right after experiencing incontinence. General instructions Take wgnf-cfe-rmujnat and prescription medicines only as told by [...] important. Where to find more information National [place] of Diabetes and Digestive and Kidney Diseases: www.niddk.nih.gov [employer]: www.urologyhealth.org Contact a health care [...] provider. Document Revised: 03/13/2021 Document Reviewed: 03/13/2021 [employer] Patient Education 2023 [employer]. Follow Up Care 01/02/2025 15:33:39 With:Genevieve Jernigan PA-C, MARIKAL Address: When: Unknown Comments:F/U in 6 months [facility] 08-20-2025 NotePatient Education Obstetrics and Gynecology Atrophic Vaginitis Atrophic [...] the vagina to get thinner and dryer. Thevagina may also shrink in size. It may [...] are. Treatment may include: ??? Using an btus-udq-itstamh vaginal lubricant before sex. ??? Using a [...] these instructions at home: Medicines ??? Take ynyg-kwv-nkwsyuy and prescription medicines only as told by your health care provider. ??? Do not use herbal or alternative medicines unless your health care provider says that you can. ??? Use oapn-ftt-ekkybwp creams, lubricants, or moisturizers for dryness only [...] provider. Document Revised: 02/05/2021 Document Reviewed: 02/05/2021 Elsevier Patient Education ? 2023 [employer] Urology Urinary Incontinence Urinary incontinence refers to a condition in which a person is unable to control where and when topass urine. A person with this condition will urinate involuntarily. This means that the person urinates when he or she does not mean to. What are the causes? (Inserted Image. Unable to dis (more content not included)...[facility]07-22-2025 Hospital Discharge instructions Patient Education 03/12/2025 13:10:24 Atrophic Vaginitis [...] the vagina to get thinner and dryer. Thevagina may also shrink in size. It may [...] symptoms are. Treatment may include: Using an gcgj-vwm-rysgzlm vaginal lubricant before sex. Using a long-acting [...] Follow these instructions at home: Medicines Take ijuy-epo-skkmump and prescription medicines only as told by your health care provider. Do not use herbal or alternative medicines unless your health care provider says that you can. Use wqzt-czb-wajmlnc creams, lubricants, or moisturizers for dryness only [...] line the vagina become dry and thin. Itis most common in women who have stopped [...] provider. Document Revised: 02/05/2021 Document Reviewed: 02/05/2021 [employer] Patient Education 2023 [employer]. Follow Up Care 03/12/2025 09:26:25 With:Genevieve Jernigan PA-C, URL Address: When: Unknown Comments:Appointment has already been scheduled [facility] 07-22-2025 NotePatient Education Obstetrics and Gynecology Atrophic Vaginitis Atrophic [...] the vagina to get thinner and dryer. Thevagina may also shrink in size. It may [...] are. Treatment may include: ??? Using an sxkg-dgj-ktijxox vaginal lubricant before sex. ??? Using a [...] these instructions at home: Medicines ??? Take aytk-kzi-svmkmyh and prescription medicines only as told by your health care provider. ??? Do not use herbal or alternative medicines unless your health care provider says that you can. ??? Use tcyd-lek-ehidwdn creams, lubricants, or moisturizers for dryness only [...] provider. Document Revised: 02/05/2021 Document Reviewed: 02/05/2021 Elsevier Patient Education ? 2023 [employer] 02-07-2025 Evaluation note* Diagnosis Onset Date Resolution Status Admit Date Diverticulitis large intestine acuteJune 2024 9:44amType 2 diabetes mellitus with hyperglycemiaacuteJune 2024 9:44amContusion of knee, leftacuteSeptember 2024 1:32pmContusion of shoulder, leftacuteSeptember 2024 1:32pmEssential hypertensionacute April 23, 2025 1:32pmExercise hypoxemiaacuteSept2024 1:32pm Interstitial lung diseaseacuteSept2024 1:32pmLeft knee painacute April 23, 2025 1:32pmOrthostatic lightheadednessacuteSept2024 1:32pmShoulder pain, leftacuteSeptember 2024 1:32pmType 2 diabetes mellitus with hyperglycemiaacuteSeptember 2024 1:32pmEssential hypertensionacute May 07, 2025 2:57pmOrthostatic lightheadednessacuteSept2024 2:57pmType 2 diabetes mellitus with hyperglycemiaacuteSept2024 2:57pm [facility] Work Phone: 1(368) 919-345806-09-2025 Evaluation note* Diagnosis Onset Date Resolution Status Admit Date ASHD (arteriosclerotic heart disease) acuteJune 2024 2:29pmCigarette nicotine dependence in remissionacuteJune 2024 2:29pmEncounter for screening mammogram for malignant neoplasm of breastacuteJun2024 2:29pmEssential hypertensionacuteJune 2024 2:29pm Lumbar spondylosisacuteJune 2024 2:29pmOSA (obstructive sleep apnea)acute January 28, 2025 2:29pmPulmonary noduleacuteJune 2024 2:29pmPure hypercholesterolemiaacuteJune 2024 2:29pmRestrictive lung diseaseacuteJune 2024 2:29pmType 2 diabetes mellitus with hyperglycemiaacuteJune 2024 2:29pmMedicare annual wellness visit, subsequentnoneactiveJune 2024 2:29pm Fracture of radial head, right, closedresolvedJune 2024 12:35pm Diverticulitis large intestineacuteJune 2024 9:44amType 2 diabetes mellitus with hyperglycemiaacuteJune 2024 9:44amContusion of knee, left acuteSeptember 2024 1:32pmContusion of shoulder, leftacuteSeptember 2024 1:32pmEssential hypertensionacuteSeptember 2024 1:32pmLeft knee pain acuteSeptember 2024 1:32pmOrthostatic lightheadednessacuteSeptember 2024 1:32pmShoulder pain, leftacuteSeptember 2024 1:32pm [facility] Work Phone: 1(810) 476-764705-14-2025 Hospital Discharge instructions Patient Education 01/02/2025 15:59:05 [...] your health care provider. General instructions Take dmub-fur-msyycqz and prescription medicines only as told by [...] provider. Document Revised: 04/27/2021 Document Reviewed: 04/27/2021 [employer] Patient Education 2023 [employer]. 01/02/2025 15:59:05 Urinary Incontinence Urinary Incontinence Urinary [...] (electrical nerve stimulation). ?For women, using a territory sales manager medical to prevent urine leaks. This is a [...] right after experiencing incontinence. General instructions Take tdan-juf-tihpwul and prescription medicines only as told by [...] important. Where to find more information National [place] of Diabetes and Digestive and Kidney Diseases: www.niddk.nih.gov [employer]: www.urologyhealth.org Contact a health care [...] provider. Document Revised: 03/13/2021 Document Reviewed: 03/13/2021 [employer] Patient Education 2023 [employer]. Follow Up Care 12/14/2024 11:11:36 With:Genevieve Jernigan PA-C, URL Address: When: Unknown Comments:3 month f/u w/ [facility] [facility] 20[facility] NotePatient Education Obstetrics and Gynecology [...] health care provider. General instructions ??? Take sphn-oza-xfdhwbl and prescription medicines only as told by [...] you drink, and whe (more content not included)...[facility]04-22-2025 Evaluation note* Diagnosis Onset Date Resolution Status Admit Date Fracture of radial head, right, closed acuteApril 2024 1:17pmASHD (arteriosclerotic heart disease)acuteJune 2024 2:29pmCigarette nicotine dependence in remissionacuteJune 2024 2:29pm Encounter for screening mammogram for malignant neoplasm of breastacuteJune 2024 2:29pmEssential hypertensionacuteJune 2024 2:29pmLumbar spondylosis acuteJune 2024 2:29pmOSA (obstructive sleep apnea)acuteJune 2024 2:29pmPulmonary noduleacuteJune 2024 2:29pmPure hypercholesterolemiaacute Klarissa 2024 2:29pmRestrictive lung diseaseacuteJune 2024 2:29pmType 2 diabetes mellitus with hyperglycemiaacuteJune 2024 2:29pmMedicare annual wellness visit, subsequentnoneactiveJune 2024 2:29pmFracture of radial head, right, closedacuteJune 2024 12:35pmDiverticulitis large intestine acuteJune 2024 9:44amType 2 diabetes mellitus with hyperglycemiaacuteJune 2024 9:44am [facility] Work Phone: 1(456) 622-249003-17-2025 Evaluation note* Diagnosis Onset Date Resolution Status Admit Date ASHD (arteriosclerotic heart disease) acuteMarch 2024 2:07pmEssential hypertensionacuteMarch 2024 2:07pm Fracture of radial head, right, closedacuteMarch 2024 2:07pmInterstitial lung diseaseacuteMarch 2024 2:07pmOSA (obstructive sleep apnea)acuteMarch 2024 2:07pmPulmonary noduleacuteMarch 2024 2:07pmRestrictive lung diseaseacuteMarch 2024 2:07pmType 2 diabetes mellitus with hyperglycemia acuteMarch 2024 2:07pmFracture of radial head, right, closedacuteMarch 2024 12:00pmFracture of radial head, right, closedacuteApril 2024 1:17pm [facility] Work Phone: 1(128) 448-973103-17-2025 Evaluation note* Diagnosis Onset Date Resolution Status Admit Date ASHD (arteriosclerotic heart disease) acuteMarch 2024 2:07pmEssential hypertensionacuteMarch 2024 2:07pm Fracture of radial head, right, closedacuteMarch 2024 2:07pmInterstitial lung diseaseacuteMarch 2024 2:07pmOSA (obstructive sleep apnea)acuteMarch 2024 2:07pmPulmonary noduleacuteMarch 2024 2:07pmRestrictive lung diseaseacuteMarch 2024 2:07pmType 2 diabetes mellitus with hyperglycemia acuteMarch 2024 2:07pmFracture of radial head, right, closedacuteMarch 2024 12:00pmFracture of radial head, right, closedacuteApril 2024 1:17pmASHD (arteriosclerotic heart disease)acuteJune 2024 2:29pmCigarette nicotine dependence in remissionacuteJune 2024 2:29pmEncounter for screening mammogram for malignant neoplasm of breastacuteJune 2024 2:29pm Essential hypertensionacuteJune 2024 2:29pmInterstitial lung diseaseacute Klarissa 2024 2:29pmLumbar spondylosisacuteJune 2024 2:29pmOSA (obstructive sleep apnea)acuteJune 2024 2:29pmPulmonary noduleacuteJune 2024 2:29pmPure hypercholesterolemiaacuteJune 2024 2:29pmRestrictive lung diseaseacuteJune 2024 2:29pmType 2 diabetes mellitus with hyperglycemiaacuteJune 2024 2:29pmMedicare annual wellness visit, subsequentnoneactiveJune 2024 2:29pm [facility] Work Phone: 1(903) 862-469112-23-2024 Evaluation note* Diagnosis Onset Date Resolution Status Admit Date Acute vasomotor rhinitis acuteDecember 2023 10:18amBradycardiaacuteDecember 2023 10:18am Cerumen impactionacuteDecember 2023 10:18am [facility] Work Phone: 1(345) 330-574012-23-2024 Evaluation note* Diagnosis Onset Date Resolution Status Admit Date Acute vasomotor rhinitis acuteDecember 2023 10:18amBradycardiaacuteDecember 2023 10:18am Cerumen impactionacuteDecember 2023 10:18amASHD (arteriosclerotic heart disease)acuteMarch 2024 2:07pmEssential hypertensionacuteMarch 2024 2:07pmInterstitial lung diseaseacuteMarch 2024 2:07pmOSA (obstructive sleep apnea)acuteMarch 2024 2:07pmPulmonary noduleacuteMarch 2024 2:07pmRestrictive lung diseaseacuteMarch 2024 2:07pmType 2 diabetes mellitus with hyperglycemiaacuteMarch 2024 2:07pm [facility] Work Phone: 1(791) 339-320412-23-2024 Evaluation note* Diagnosis Onset Date Resolution Status Admit Date Acute vasomotor rhinitis acuteDecember 2023 10:18amBradycardiaacuteDecember 2023 10:18am Cerumen impactionacuteDecember 2023 10:18amASHD (arteriosclerotic heart disease)acuteMarch 2024 2:07pmEssential hypertensionacuteMarch 2024 2:07pmFracture of radial head, right, closedacuteMarch 2024 2:07pm Interstitial lung diseaseacuteMarch 2024 2:07pmOSA (obstructive sleep apnea)acuteMarch 2024 2:07pmPulmonary noduleacuteMarch 2024 2:07pm Restrictive lung diseaseacuteMarch 2024 2:07pmType 2 diabetes mellitus with hyperglycemiaacuteMarch 2024 2:07pmFracture of radial head, right, closedacuteMarch 2024 12:00pm [facility] Work Phone: 1(605) 816-395810-09-2024 Evaluation + Plan note Diagnostic Tests Pending * Urine Cytology ([facility]) 05/30/24 [facility] 10-09-2024 Hospital Discharge instructions Patient Education [...] Follow these instructions at home: Medicines Take uhlo-zmh-lejgwel and prescription medicines only as told by [...] or the blood stops without treatment. Take uegt-rym-ovqghfn and prescription medicines only as told by your health care provider. Drink enough fluid to keep your urine pale yellow. This information is not intended to replace advice given to you by your health care provider. Make sure you discuss any questions you have with your health care provider. Document Revised: 04/08/2021 Document Reviewed: 04/08/2021 [employer] Patient Education 2023 [employer]. 05/30/2024 09:04:34 Cystoscopy Cystoscopy Cystoscopy is a [...] including vitamins, herbs, eye drops, creams, and negv-hoe-epdlbio medicines. Any problems you or family members [...] provider tells you to take them. Taking ncmw-pll-nudkpsw medicines, vitamins, herbs, and supplements. Tests You [...] Follow these instructions at home: Medicines Take pwtb-voa-jlasncl and prescription medicines only as told by [...] provider. Document Revised: 04/21/2022 Document Reviewed: 03/20/2021 [employer] Patient Education 2023 [employer]. Follow Up Care 2024 11:11:22 With:Lue MD, SHIN Bejarano, URO Address: [address], [facility] [place] [phone] When: Unknown Comments:[facility] NotePatient Education Urology Hematuria, Adult Hematuria [...] these instructions at home: Medicines ? Take tjyg-djr-fnsglyf and prescription medicines only as told by [...] the blood stops without treatment. ? Take xenu-uev-kjiyuac and prescription medicines only as told by your health care provider. ? Drink enough fluid to keep your urine pale yellow. This information is not intended to replace advice given to you by your health care provider. Make sure you discuss any questions you have with your health care provider. Document Revised: 04/08/2021 Document Reviewed: 04/08/2021 [employer] Patient Education ? 2023 [employer] Cystoscopy Cystoscopy is a procedure that [...] drops, creams, and over-th (more content not included)...[facility]02-23-2024 Evaluation note* Encounter Date Diagnosis Assessment Notes Treatment Notes Treatment Clinical Notes Sep, Acute bilateral thoracic back pa in (ICD-10 - M54.6) [employer] Other 12-19-2023 Evaluation note* Encounter Date Diagnosis [...] Microalbumin, Dilated eye exam and Foot exam Jul,SHD (arteriosclerotic heart disease) (ICD-10 - I25.10)This patient is stable without activity related CP, dyspnea or lightheadedness. They are instructedto continue exercise and AHA diet plan. Continue secondary prevention measures. Jul,rimary hypertension (ICD-10 - I10)This patient is instructed to consume a healthy, low-fat, low-salt diet. They are also encouraged to continue exercise to achieve/maintain a normal BMI. Patient is instructed on home BP measurements: - rest for 5 minutes w/o talking- positioned w/ feeton floor and arm supported- average best 2/3 readings w/ goal < 135/85 Hold Atenolol and continue to monitor BP /HR Jul,Simple chronic bronchitis (ICD-10 - J41.0)Mucolytics as needed. DIMITRI as need for cough and wheezing f/u PUlmonary Jul,OSA (obstructive sleep apnea) (ICD-10 - G47.33)This patient is aware of the benefits associated with DUSTIN: With continued use, the patient reduces the risk for OR, CVA, HTN, cardiac dysrhythmias and sudden cardiac deaths.The patient is also aware of the association between DUSTIN and morning headaches, daytime somnolence, fatigue and obesity, whichalso has been improved with continued use.The patient is compliant with treatment, wearing the equipment every night for greater than 4 hours.The patient is instructed to continue use of the CPAP forOSA treatment. Jul,Restrictive lung disease (ICD-10 - J98.4)Cough and deep breathing IS 15x several times daily. Weight loss Jul,ure hypercholesterolemia (ICD-10 - E78.00)Instructed on diet and exercise with continued statin therapy.Discussed the beneficial effects of lo wering cholesterol in reducing the risk for cerebrovascular and cardiovascular disease. Jul,astroesophageal reflux disease with esophagitis without hemorrhage (ICD-10 - K21.00)Avoid lying flat after eating. Avoid eating 2 hours prior to bedtime. Smaller, frequent meals may be better tolerated.Weight loss if overweight.PPI with any heartburn.Monitor for dysphagia. Jul,hronic venous insufficiency (ICD-10 - I87.2)Avoid salt and elevate lower extremities, support stockings, inspect legs and feet daily for blisters and ulcerations. Jul,ulmonary nodule (ICD-10 - R91.1)CT: 4mm nodule - /[id number], in smoker would recommend repeat in 12 months. [facility] Other 12-14-2023 Evaluation note* Encounter Date Diagnosis Assessment Notes Treatment Notes Treatment Clinical Notes Jul, Restrictive lung disease (ICD-10 - J98.4) [facility] Other 11-28-2023 Evaluation note* Encounter Date Diagnosis Assessment Notes Treatment Notes Treatment Clinical Notes Jun, Acute non-recurrent maxillary si nusitis (ICD-10 - J01.00) Instructed to use Robitussin or Mucinex for cough, saline or Flonase NS for congestion, Tylenol forpain and fever. Jun,Type 2 diabetes mellitus with hyperglycemia, without long-term current use of insulin (ICD-10 - E11.65)BS may increase during acute illness No change in treatment necessary Jun,Suspected COVID-19 virus infection (ICD-10 - Z20.822)Send for COVID PCR - results negative [facility] Other 10-25-2023 Evaluation note* Encounter Date Diagnosis Assessment Notes Treatment Notes Treatment Clinical Notes May, Age-related osteopor osis without current pathological fracture (ICD-10 - M81.0) [facility] Other 10-19-2023 Evaluation note* Encounter Date Diagnosis Assessment Notes Treatment Notes Treatment Clinical Notes May, Acute bilateral thoracic back pa in (ICD-10 - M54.6) [employer] [facility] Other 10-18-2023 Evaluation note* Encounter Date Diagnosis Assessment Notes Treatment Notes Treatment Clinical Notes May, Acute bilateral thoracic back pa in (ICD-10 - M54.6) ROM exercises, heat/ice and stretching. Tylenol as needed, up to 1000mg tid. Tramadol for severe pain, up to bid Refer for pain management. May,ge-related osteoporosis without current pathological fracture (ICD- 10 - M81.0)Repeat DEXA Continue Ca and Vit D supplements. Encouraged to pursue weight bearing exercises Consider Bisphosphonate therapy if DEXA reveals declining T scores Treatment required to reduce risk of fragility fractures May,Other obesity due to excess calories (ICD-10 - E66.09)This patient has been instructed on a low-fat, high-fiber diet. They are instructed to reduce calories, portion sizes and snacks. It is recommended that they exercise for 30 minutes, 3-5 times weekly. May,ody mass index [BMI] 34.0-34.9, adult (ICD-10 - Z68.34) [facility] Other 10-13-2023 Evaluation note* Encounter Date Diagnosis Assessment Notes Treatment Notes Treatment Clinical Notes May, Simple chronic bronchitis (ICD-1 0 - J41.0) Continue LABA/ICS Use DIMITRI as needed for cough/wheezing. Control allergies and GERD symptoms. Weight loss May,Restrictive lung disease (ICD-10 - J98.4)Weight loss important. Avoid exposure to dust, smoke and allergens. Continue treatment for DUSTIN Refer to Rehab Physician for evaluation and treatment May,OSA (obstructive sleep apnea) (ICD-10 - G47.33)This patient is aware of the benefits associated with DUSTIN: With continued use, the patient reduces t he risk for OR, CVA, HTN, cardiac dysrhythmias and sudden cardiac deaths.The patient is also aware of the association between DUSTIN and morning headaches, daytime somnolence, fatigue and obesity, whichalso has been improved with continued use.The patient is compliant with treatment, wearing the equipment every night for greater than 4 hours.The patient is instructed to continue use of the CPAP forOSA treatment. May,ulmonary nodule (ICD-10 - R91.1)According to guidelines should have repeat CT in 12 months but radiology report recommends 6mo. Schedule 6mo f/u CT May,SHD (arteriosclerotic heart disease) (ICD-10 - I25.10)This patient is stable without activity related CP, dyspnea or lightheadedness. They are instructedto continue exercise and AHA diet plan. Continue secondary prevention measures. May,ody mass index [BMI] 33.0-33.9, adult (ICD-10 - Z68.33) May,Other obesity due to excess calories (ICD-10 - E66.09)This patient has been instructed on a low-fat, high-fiber diet. They are instructed to reduce calories, portion sizes and snacks. It is recommended that they exercise for 30 minutes, 3-5 times weekly. May,astroesophageal reflux disease with esophagitis without hemorrhage (ICD-10 - K21.00)Diet instructions: Smaller portions, avoid eating and laying flat, avoid eating or drinking prior to bedtime. Weight loss. May,igarette nicotine dependence in remission (ICD-10 - F17.211) Continue abstinence May,rimary hypertension (ICD-10 - I10)This patient is instructed to consume a healthy, low-fat, low-salt diet. They are also encouraged to continue exercise to achieve/maintain a normal BMI. [facility] Other 08-31-2023 Evaluation note* Encounter Date Diagnosis Assessment Notes Treatment Notes Treatment Clinical Notes Mar, Chronic bronchitis, simple (ICD- 10 - J41.0) [facility] Other 08-30-2023 Evaluation note* Encounter Date Diagnosis Assessment Notes Treatment Notes Treatment Clinical Notes Mar, Chronic bronchitis, simple (ICD- 10 - J41.0) [facility] Other 08-30-2023 Evaluation note* Encounter Date Diagnosis Assessment Notes Treatment Notes Treatment Clinical Notes Mar, Chronic bronchitis, simple (ICD- 10 - J41.0) Mar,OE (dyspnea on exertion) (ICD-10 - R06.09) [facility] Other 08-28-2023 Evaluation note* Encounter Date Diagnosis Assessment Notes Treatment Notes Treatment Clinical Notes Mar, Pulmonary nodule (ICD-10 - R91.1 ) [facility] Other 08-22-2023 Evaluation note* Encounter Date Diagnosis Assessment Notes Treatment Notes Treatment Clinical Notes Mar, Pulmonary nodule (ICD-10 - R91.1 ) [facility] Other 08-22-2023 Evaluation note* Encounter Date Diagnosis Assessment Notes Treatment Notes Treatment Clinical Notes Mar, Primary osteoarthritis of left k nee (ICD-10 - M17.12) IA injection w/ improvement in pain. - can repeat in 3-4 months if needed Quad exercises, ice/heat and Tylenol. Avoid squatting or kneeling Mar,cute bilateral thoracic back pain (ICD-10 - M54.6)ROM exercises, heat/ice and stretching. Tylenol as needed, up to 1000mg tid. Tramadol for severe pain, up to bid Refer for therapy Mar,Other obesity due to excess calories (ICD-10 - E66.09)This patient has been instructed on a low-fat, high-fiber diet. They are instructed to reduce calories, portion sizes and snacks. It is recommended that they exercise for 30 minutes, 3-5 times weekly. Mar,ody mass index [BMI] 34.0-34.9, adult (ICD-10 - Z68.34) [facility] Other 08-17-2023 Evaluation note* Encounter Date Diagnosis Assessment Notes Treatment Notes Treatment Clinical Notes Mar, Acute bilateral low back pain wi thout sciatica (ICD-10 - M54.50) [facility] Other 08-08-2023 Evaluation note* Encounter Date Diagnosis Assessment Notes Treatment Notes Treatment Clinical Notes Mar, ASHD (arteriosclerotic heart dis ease) (ICD-10 - I25.10) This patient is stable without activity related CP, dyspnea or lightheadedness. They are instructedto continue exercise and AHA diet plan. Mar,rimary hypertension (ICD-10 - I10)This patient is instructed to consume a healthy, low-fat, low-salt diet. They are also encouraged to continue exercise to achieve/maintain a normal BMI. Mar,Type 2 diabetes mellitus with hyperglycemia, without long-term current use of insulin (ICD-10 - E11.65)This patient is following a comprehensive diabetic treatment [...] exam Due for A1C in 2 mo Mar,astroesophageal reflux disease with esophagitis without hemorrhage (ICD-10 - K21.00)Diet instructions: Smaller portions, avoid eating and laying flat, avoid eating or drinking prior to bedtime. Weight loss. Had to restart her PPI due to heartburn and cough Mar,ain in left knee (ICD-10 - M25.562)Previously improved symptoms w/ IA injection. Informed that her pain may worsen prior to improvement. Instructed to ice and rest over the next 24 hours. Mar,rimary osteoarthritis of left knee (ICD-10 - M17.12)Quad exercises, ice/heat and Tylenol. Avoid squatting or kneeling. IA injections every 3 mo as needed. Continue weight loss [facility] Other 04-09-2023 Evaluation note* Encounter Date Diagnosis Assessment Notes Treatment Notes Treatment Clinical Notes Nov, Obstructive sleep ap sinai (adult) (pediatric) (ICD-10 - G47.33) AHI 34, CPAP14, [facility] Other 04-06-2023 Evaluation note* Encounter Date Diagnosis [...] reviewed and amended by provider signed below. Nov,SHD (arteriosclerotic heart disease) (ICD-10 - I25.10)This patient is stable without activity related CP, dyspnea or lightheadedness. They are instructedto continue exercise and AHA diet plan. Nov,Type 2 diabetes mellitus with hyperglycemia, without long-term current use of insulin (ICD-10 - E11.65)This patient is following a comprehensive diabetic treatment plan. They are checking their feet daily for calluses and nonhealing ulcers. They are being seen for yearly dilated eye examinations. Goals: SBP less than 130, LDL less than 100, FBS less than 140, AC and A1C less than 7%. They are checking their BS daily, will which are reviewed at the office visit. A1C: Nov,Essential hypertension (ICD-10 - I10)This patient is instructed to consume a healthy, low-fat, low-salt diet. They are also encouraged to continue exercise to achieve/maintain a normal BMI. Nov,Obstructive sleep apnea (adult) (pediatric) (ICD-10 - G47.33)This patient is aware of the benefits associated with DUSTIN: With continued use, the patient reduces the risk for OR, CVA, HTN, cardiac dysrhythmias and sudden cardiac deaths.The patient is also aware of the association between DUSTIN and morning headaches, daytime somnolence, fatigue and obesity, whichalso has been improved with continued use.The patient is compliant with treatment, wearing the equipment every night for greater than 4 hours.The patient is instructed to continue use of the CPAP forOSA treatment. Nov,High cholesterol (ICD-10 - E78.00)Diet and exercise with continued statin therapy. Nov,hronic bronchitis, simple (ICD-10 - J41.0)Continue abstinence from tobacco products. Doesn't qualify for LDCT chest Nov,astroesophageal reflux disease with esophagitis without hemorrhage (ICD-10 - K21.00) Nov,Recurrent major depressive disorder, in full remission (ICD-10 - F33.42) Nov,Screening mammogram for breast cancer (ICD-10 - Z12.31)SBE and yearly mammogram Nov,ge-related osteoporosis without current pathological fracture (ICD- 10 - M81.0)Ca and Vitamin D supplements, weight bearing exercises and repeat DEXA this year Nov,High risk medication use (ICD-10 - Z79.899) [facility] Other 03-13-2023 Evaluation note* Encounter Date Diagnosis Assessment Notes Treatment Notes Treatment Clinical Notes Oct, Acute non-recurrent maxillary si nusitis (ICD-10 - J01.00) Instructed to use Flonase NS for congestion, Tessalon for cough, Tylenol for pain and fever. Oct,cute cough (ICD-10 - R05.1)Head upright, push fluids and Tessalon perles [facility] Other 02-28-2023 Evaluation note* Encounter Date Diagnosis Assessment Notes Treatment Notes Treatment Clinical Notes Sep, Pure hypercholesterolemia (ICD-1 0 - E78.00) [facility] Other Evaluation + Plan note Future Appointments Appointment Date:04/03/2025 12:30:00 PM Scheduled Provider:Genevieve Jernigan PA-C Location:[facility] Appointment Type:URO Office Visit [facility] evaluation + Plan note Future Appointments Appointment Date:04/10/2025 08:30:00 AM Scheduled Provider:Genevieve Jernigan PA-C Location:[facility] Appointment Type:URO Office Visit [facility] Evaluation noteNo InformationNort [employer] Other Evaluation noteNo assessment information available [facility] Work Phone: Hiskgma general Narrative - Reported* Type Description Date Medical History Essential hypertension Medical HistoryASHD (arteriosclerotic heart disease)Medical HistoryChronic venous insufficiencyMedical HistoryChronic bronchitis, simpleMedical HistoryHigh cholesterolMedical HistoryLumbar spondylosisMedical HistoryObesity (BMI 30-39.9) Medical HistoryObstructive sleep apnea (adult) (pediatric) [employer] Other [facility] general Narrative - Reported* Type Description Date Medical History Essential hypertension Medical HistoryASHD (arteriosclerotic heart disease)Medical HistoryChronic venous insufficiencyMedical HistoryChronic bronchitis, simpleMedical HistoryHigh cholesterolMedical HistoryLumbar spondylosisMedical HistoryObesity (BMI 30-39.9) Medical HistoryObstructive sleep apnea (adult) (pediatric)Surgical HistoryTAH /[id number] HistoryTONSILLECTOMYSurgical HistoryD&CSurgical HistoryLHC Surgical HistoryCYSTOSCOPYSurgical HistoryURETHRAL [id number] History [id number] HistorySEE SURGICAL HX [employer] [facility] [employer] Other Hisgpnf general Narrative - Reported* Type Description Date Medical History Essential hypertension Medical HistoryASHD (arteriosclerotic heart disease)Medical HistoryChronic venous insufficiencyMedical HistoryChronic bronchitis, simpleMedical HistoryHigh cholesterolMedical HistoryLumbar spondylosisMedical HistoryObesity (BMI 30-39.9) Medical HistoryObstructive sleep apnea (adult) (pediatric)Medical History OsteoporosisSurgical HistoryTAH /[id number] HistoryTONSILLECTOMYSurgical HistoryD&CSurgical HistoryLHCSurgical HistoryCYSTOSCOPYSurgical HistoryURETHRAL [id number] [id number] HistorySEE SURGICAL HX [employer] Other History general Narrative - Reported* Type Description Date Medical History Essential hypertension Medical HistoryASHD (arteriosclerotic heart disease)Medical HistoryChronic venous insufficiencyMedical HistoryChronic bronchitis, simpleMedical HistoryHigh cholesterolMedical HistoryLumbar spondylosisMedical HistoryObesity (BMI 30-39.9) Medical HistoryObstructive sleep apnea (adult) (pediatric)Medical History OsteoporosisMedical HistoryRestrictive lung diseaseSurgical HistoryTAH /[id number] Surgical HistoryTONSILLECTOMYSurgical HistoryD&CSurgical HistoryLHCSurgical HistoryCYSTOSCOPYSurgical HistoryURETHRAL [id number] HistoryCOLONSCOPY 2018Hospitalization HistorySEE SURGICAL HX [employer] Other Hospital course Narrative No data available for this section [facility] Hospital Discharge instructions No data available for this section [facility] Progress note No data available for this section [facility] reason for referral (narrative)* Reason Referral for COPD an d RLD Diagnosis 1 Restrictive lung dis ease (J98.4) Diagnosis 2 Chronic bronchitis, simple (J41.0) Diagnosis 3 Pulmonary nodule (R9 1.1) Diagnosis 4 Cigarette nicotine d ependence in remission (F17.211) Referral Organization [facility] karin Referring Provider First Name Edwin Referring Provider Last Name Felecia Referring Provider Specialty Internal Me dicine Referred Organization [facility] Referred Provider Yany Martinez Referred Address ,[place], [place],[address] Referred Provider Specialty Pulmonary Di seases Referral Priority Routine General Notes Patient with hx of t obacco use and CT, PFT findings suspicious for COPD/emphysema and ILD. Obesity may contribute to respiratory complaints. Clinical Notes Labs, CT, PFT [employer] Other Reason for referral (narrative)* Reason Referral for persist ent thoracolumbar spine pain Diagnosis 1 Acute bilateral thor acic back pain (M54.6) Diagnosis 2 Lumbar spondylosis ( M47.816) Diagnosis 3 Age-related osteopor osis without current pathological fracture (M81.0) Referral Organization [facility] Felecia frazier Referring Provider First Name Edwin Referring Provider Last Name Felecia Referring Provider Specialty Internal Me dicsuad Referred Organization [facility] Referred Provider Freddie Cotton Referred Address [address], [place],[address] Referred Provider Specialty Pain Medicin e Referral Priority Routine General Notes Patient w/ known deg enerative arthritis of the spine w/ persistent moderate to severe thoracolumbar spine pain w/ paraspinal muscle spasms. Completed PT w/ some temporary improvement. Stretching, Tylenol and Tramadol helping w/ the pain. Refer for alternative treatment for persistent back pain. [employer] Other Reason for referral (narrative)No reason for referral information availableUc Health Work Phone: Summary Purpose Family History Relationship Condition Age at Onset Recorded Date/T mervin father Unknown motherDeceasedUnknown Advance Directives Advance Directive Response Recorded Date/ Time Advance Directives No April 11:03am Advance Directive Response Recorded Date/ Time Advance Directives No April 10:27am Advance Directive Response Recorded Date/ Time Advance Directives No April 1:55pm Chief Complaint and Reason for Visit Chief [...] 13, 2024 10:18am ASHD (arteriosclerotic heart disease) [facility] 2024 2:07pm Essential hypertension November 05, 2024 2:07pm Interstitial lung disease November 05 2:07pm DUSTIN (obstructive sleep apnea) October 2:07pm Pulmonary nodule November 05, 2024 2:0 7pm Restrictive lung disease November 05 2:07pm Type 2 diabetes mellitus with hyperglyce [facility] November 05, 2024 2:07pm Chief Complaint Admit Date ears plugged August 13, 2024 10:18am fall, right arm injury November 03, 2024 4:31pm 4 month f/u-HIGH RISK November 05, 2024 2 :07pm S52.124D - Nondisplaced fracture of head of right November 06, 2024 8:28am ER [facility] [place] FX WX November 06, 2024 12:00pm Reason for Visit Admit Date Acute vasomotor rhinitis August 13, 2024 10:18am Bradycardia August 13, 2024 10:18am Cerumen impaction August 13, 2024 10:18am ASHD (arteriosclerotic heart disease) [facility] 2024 2:07pm Essential hypertension November 05, 2024 2:07pm Fracture of radial head, right, closed M arch 2024 2:07pm Interstitial lung disease November 05 2:07pm DUSTIN (obstructive sleep apnea) October 2:07pm Pulmonary nodule November 05, 2024 2:0 7pm Restrictive lung disease November 05 2:07pm Type 2 diabetes mellitus with hyperglyce [facility] November 05, 2024 2:07pm Fracture of radial head, right, closed M arch 2024 12:00pm Chief Complaint Admit Date fall, right arm injury November 03, 2024 4:31pm 4 month f/u-HIGH RISK November 05, 2024 2 :07pm S52.124D - Nondisplaced fracture of head of right November 06, 2024 8:28am ER [facility] [place] FX WX November 06, 2024 12:00pm S52.124D - Nondisplaced fracture of head of right December 11, 2024 11:15am 5 WEEKS December 11, 2024 1:1 7pm Reason for Visit Admit Date ASHD (arteriosclerotic heart disease) [facility] 2024 2:07pm Essential hypertension November 05, [...] of right November 06, 2024 8:28am ER [facility] [place] FX WX November 06, 2024 12:00pm S52.124D - Nondisplaced fracture of head of right December 11, 2024 11:15am 5 WEEKS December 11, 2024 1:1 7pm Wellness-HIGH RISK January 28, 2025 2:29p m Reason for Visit Admit Date ASHD (arteriosclerotic heart disease) [facility] 2024 2:07pm Essential hypertension November 05, [...] 2024 1:17pm ASHD (arteriosclerotic heart disease) Karina ma 2024 2:29pm Cigarette nicotine dependence in [facility] on January 28, 2025 2:29pm Encounter for [...] ne 2024 2:29pm Cigarette nicotine dependence in [facility] on January 28, 2025 2:29pm Encounter for [...] Fracture of radial head, right, closed J [facility] 2024 12:35pm Diverticulitis large intestine January 9:44am [...] Admit Date ASHD (arteriosclerotic heart disease) Ju ma 2024 2:29pm Cigarette nicotine dependence in [facility] on January 28, 2025 2:29pm Encounter for [...] Fracture of radial head, right, closed J [facility] 2024 12:35pm Diverticulitis large intestine January 9:44am Type 2 diabetes mellitus with hyperglyce justin February 07, 2025 9:44am Contusion of knee, left April 23 1:32pm Contusion of shoulder, left April 1:32pm Essential hypertension April 23 1:32pm Left knee pain April 23, 2025 1:32pm Orthostatic lightheadedness April 1:32pm Shoulder pain, left April 23, 2025 1:32pm Chief Complaint Admit Date Diverticulitis February 07, 2025 9:44 am UA, blood in urine, spasm, low output Ju ly 2024 11:48am fall April 23, 2025 1:32pm BP Concerns May 07, 2025 2:57pm Reason for Visit Admit Date Diverticulitis large intestine January 9:44am Type 2 diabetes mellitus with hyperglyce justin February 07, 2025 9:44am Contusion of knee, left April 23 025 1:32pm Contusion of shoulder, left April d2024 1:32pm Essential hypertension April 23 1:32pm Exercise hypoxemia April 23, 2025 1:32pm Interstitial lung disease April 23, 2025 1:32pm Left knee pain April 23, 2025 1:32pm Orthostatic lightheadedness April 1:32pm Shoulder pain, left April 23, 2025 1:32pm Type 2 diabetes mellitus with hyperglyce justin April 23, 2025 1:32pm Essential hypertension May 07 2:57pm Orthostatic lightheadedness May 072024 2:57pm Type 2 diabetes mellitus with hyperglyce justin May 07, 2025 2:57pm Chief Complaint Admit Date UA, blood in urine, spasm, low output Ju ly 2024 11:48am fall April 23, 2025 1:32pm BP Concerns May 07, 2025 2:57pm Back Pain May 10, 2025 1:56pm Reason for Visit Admit Date Contusion of knee, left April 23 1:32pm Contusion of shoulder, left April d2024 1:32pm Essential hypertension April 23 1:32pm Exercise hypoxemia April 23, 2025 1:32pm Interstitial lung disease April 23, 2025 1:32pm Left knee pain April 23, 2025 1:32pm Orthostatic lightheadedness April d2024 1:32pm Shoulder pain, left April 23, 2025 1:32pm Type 2 diabetes mellitus with hyperglyce justin April 23, 2025 1:32pm Essential hypertension May 07 025 2:57pm Obesity May 07, 2025 2:57pm Orthostatic lightheadedness May 072024 2:57pm Type 2 diabetes mellitus with hyperglyce justin May 07, 2025 2:57pm Chief Complaint Admit Date fall April 23, [...] 1:32pm Type 2 diabetes mellitus with hyperglyce justin April 23, 2025 1:32pm Essential hypertension May 07 025 2:57pm Obesity May 07, 2025 2:57pm Orthostatic lightheadedness May 072024 2:57pm Type 2 diabetes mellitus with hyperglyce justin May 07, 2025 2:57pm Compression fracture of L1 lumbar verteb ra May 10, 2025 1:56pm Low back pain May 10, 2025 1:56pm Lumbar spondylosis May 10, 2025 1:56pm ASHD (arteriosclerotic heart disease) [facility] 2024 1:22pm [facility], 2025 1:22pm Essential hypertension June 07 1:22pm Lumbar spondylosis June 07, 2025 1 :22pm DUSTIN (obstructive sleep apnea) June 072024 1:22pm Pulmonary nodule June 07, 2025 1 :22pm Pure hypercholesterolemia June 07, 2025 1:22pm Restrictive lung disease June 07 025 1:22pm Type 2 diabetes mellitus with hyperglyce justin June 07, 2025 1:22pm Additional Source Comments REASON FOR VISIT (unrecogniz ed section and content) Medication QuestionCongestio n [phone] ATBwellnessNo InformationCPAP Equipment?4 month follow upBack SpasmsNo InformationXR resultsreferral for PTNo InformationNo InformationNo InformationCT resultsDifferent InhalerPFT resultstesting resultsback painMedicationNo InformationDexa [phone] cold/sore throatNo Information4 month Follow upHR-AtenololUpdateNo Information INFORMATION SOURCE (unrecogn ized section and content) DATE CREATED AUTHOR 01/01/2023 [facility] DATE CREATED AUTHOR AUTHOR'S ORGANIZ ATION 08/05/2023 [facility] DATE CREATED AUTHOR AUTHOR'S ORGANIZ ATION 04/05/2024 [facility] DATE CREATED AUTHOR AUTHOR'S ORGANIZ ATION 06/06/2024 [facility] DATE CREATED AUTHOR AUTHOR'S ORGANIZ ATION 03/04/2025 [facility] DATE CREATED AUTHOR AUTHOR'S ORGANIZ ATION 03/15/2025 [facility] DATE CREATED AUTHOR AUTHOR'S ORGANIZ ATION 03/20/2025 [facility] DATE CREATED AUTHOR AUTHOR'S ORGANIZ ATION 03/21/2025 [facility] DATE CREATED AUTHOR AUTHOR'S ORGANIZ ATION 03/22/2025 [facility] DATE CREATED AUTHOR AUTHOR'S ORGANIZ ATION 04/05/2025 [facility] DATE CREATED AUTHOR AUTHOR'S ORGANIZ ATION 04/11/2025 [facility] DATE CREATED AUTHOR AUTHOR'S ORGANIZ ATION 04/26/2025 [facility] DATE CREATED AUTHOR AUTHOR'S ORGANIZ ATION 04/29/2025 [facility] DATE CREATED AUTHOR AUTHOR'S ORGANIZ ATION 05/02/2025 [facility] Care Teams (unrecognized sec tion and content) Team Status: Active Member Role Status Dates Edwin Mohan DO Primary Care Provider Active Team Status: Inactive Member Role Status Dates Edwin Mohan DO Primary Care Provider Active Start: November 03, 2024 End: November 03, 2024Destiney Estrada ProviderActiveStart: November 03, 2024 End: November 03, 2024 Team Status: Inactive Member Role Status Dates Edwin Mohan DO Primary Care Provide r, Attending Provider Active Start: November 05, 2024 End: November 05, 2024 Team Status: Inactive Member Role Status Dates Edwin Mohan DO Primary Care Provider Active Start: November 06, 2024 End: November 06, 2024Akil Yousif ProviderActiveStart: November 06, 2024 End: November 06, 2024 Team Status: Inactive Member Role Status Dates Edwin Mohan DO Primary Care Provider Active Start: December 11, 2024 End: December 11, 2024Wilfred Orozco DOAttcristine ProviderActiveStart: December 11, 2024 End: December 11, 2024 Team Status: Inactive Member Role Status Dates Edwin Mohan DO Primary Care Provide r, Attending Provider Active Start: January 28, 2025 End: January 28Young [place] CoordinatorActiveStart: January 28, 2025 End: January 28, 2025 Team Status: Active Member Role Status Dates Edwin Mohan DO Primary Care Provide r, Attending Provider Active Start: September 29, 2024 Team Status: Active Member Role Status Dates Edwin Mohan DO Primary Care Provider Active Start: December 11, 2024 Wilfred Orozco DOAttending ProviderActiveStart: December 11, 2024 Team Status: Inactive Member [...] Active Start: November 06, 2024 Wilfred Orozco DOAttending ProviderActiveStart: November 06, 2024 Team Status: Inactive Member Role Status Dates Edwin Mohan DO Primary Care Provider Active Start: January 28, 2025 End: January 28landy Mohan DOAttending ProviderActiveStart: January 28, 2025 End: January 28ana Moon [facility] CoordinatorActiveStart: January 28, 2025 End: January 28, 2025 Team Status: Inactive Member Role Status Dates Edwin Mohan DO Primary Care Provider Active Start: February 05, 2025 End: February 05, 2025Wilfred Orozco DOAttending ProviderActiveStart: February 05, 2025 End: February 05, 2025 Team Status: Inactive Member Role Status Dates Edwin Mohan DO Primary Care Provider Active Start: February 07, 2025 End: February 07enkyle Mohan DOAttending ProviderActiveStart: February 07, 2025 End: February 07, 2025 Team Status: Inactive Member Role Status Dates Edwin Mohan DO Primary Care Provider Active Start: February 28, 2025 End: February 28enkyle Mohan , DOAttending ProviderActiveStart: February 28, 2025 End: February 28, 2025 Team Status: Active Member Role Status Dates Edwin Mohan DO Primary Care Provider Active Start: April 05, 2025 Edwin Mohan , DOAttending ProviderActiveStart: April 05, 2025 Team Status: Inactive Member Role Status Dates Edwin Mohan DO Primary Care Provider Active Start: April 23, 2025 End: April 23enkyle Mohan , DOAttending ProviderActiveStart: April 23, 2025 End: April 23, 2025 Team Status: Inactive Member Role Status Dates Edwin Mohan DO Primary Care Provider Active Start: May 07, 2025 End: May 07landy Mohan , DOAttending ProviderActiveStart: May 07, 2025 End: May 07, 2025 Team Status: Inactive Member Role Status Dates Edwin Mohan DO Primary Care Provider Active Start: May 10, 2025 End: May 10enkyle Mohan , DOAttending ProviderActiveStart: May 10, 2025 End: May 10, 2025 Team Status: Active Member Role/Relationship Status Dates Edwin Mohan DO Primary Care Provider Active Team Status: Active Member Role/Relationship Status Dates Edwin Mohan DO Primary Care Provider Active Start: April 05, 2025 Edwin Mohan , DOAttending ProviderActiveStart: April 05, 2025 Team Status: Inactive Member Role/Relationship Status Dates Edwin Mohan DO Primary Care Provider Active Start: April 23, 2025 End: April 23enkyle Mohan , DOAttending ProviderActiveStart: April 23, 2025 End: April 23, 2025 Team Status: Inactive Member Role/Relationship Status Dates Edwin Mohan DO Primary Care Provider Active Start: May 07, 2025 End: May 07landy Mohan , DOAttending ProviderActiveStart: May 07, 2025 End: May 07, 2025 Team Status: Inactive Member Role/Relationship Status Dates Edwin Mohan DO Primary Care Provider Active Start: May 10, 2025 End: May 10enkyle Mohan , DOAttending ProviderActiveStart: May 10, 2025 End: May 10, 2025 Team Status: Inactive Member Role/Relationship Status Dates Edwin Mohan DO Primary Care Provider Active Start: June 07, 2025 End: June 07landy Mohan DOAttending ProviderActiveStart: June 07, 2025 End: June 07, 2025 Goals (unrecognized section and content) Goals [...] BE BASED ON THE PRIMARY CLINICAL RECORDS. [facility] [employer] [facility]. provides no warranty or guarantee of the accuracy or completeness of information in this document.
--- NOTE | 2025-06-20 14:47 | CT_ITS ---
The [address] [address] Patient Name: MARIA ELENA ALLEN MRN: [id number] date: 1945 Sex: F Assigned [facility] Current Patient Location: Accession/Order Number: [id number] Exam Date: 06/20/2025 14:34 Report Date: 06/21/2025 09:48 At the request of: ANTOINE IZQUIERDO DO Procedure: CT chest high res HIGH-RESOLUTION CT CHEST WITHOUT CONTRAST COMPARISON: 04/03/2024 CLINICAL DATA: Cough and jaundice of breath. History of tobacco use. Spiral axial unenhanced images were obtained through the chest. Images were reconstructed at 1 mm sections at 10 mm increments. Patient is also scanned in prone position with high-resolution technique. Images were reviewed using both narrow and wide window settings. This CT exam was performed using one or more following dose reduction techniques: Automated exposure control, adjustment of the mA and/or kV according to patient size, or use of iterative reconstruction technique. The heart is borderline enlarged. No pericardial effusion is seen. Mild coronary artery disease is noted. The ascending aorta is mildly ectatic. There is plaque at the aortic arch, descending aorta and proximal great vessels. There is similar scattered mediastinal lymph nodes measuring up to 15 mm in short axis dimension in the subcarinal region. The bang are more difficult to assess without contrast. Endplate spurring is seen at the spine. There is obstructive lung disease with airspace lucencies and subpleural blebs. There is scarring at the lung apices. Similar diffuse interstitial changes are present. Scarring and/or atelectasis is noted. There is no developing consolidation, pleural effusion or pneumothorax. Limited cuts through the upper abdomen show no contributory findings. CT/CT chest high res IMPRESSION: SIMILAR INTERSTITIAL AND OBSTRUCTIVE LUNG DISEASE. NO ACUTE FINDINGS. Impression dictated by: Chiara Choi M.D. 06/21/2025 9:48 AM Dictation Location: [place] [address] Electronically authenticated by: [id number] Y Date: 06/21/2025 09:48
== END 2025-06-20 14:00 | disposition home or self-care (01) ==
LOC: MAMMO 13:59
PROVIDERS: PCP Internal Medicine; Visit Provider Internal Medicine
DX: R09.02 Hypoxemia (principal); R94.2 Abnormal results of pulmonary function studies; J84.9 Interstitial pulmonary disease, unspecified; Z12.31 Encounter for screening mammogram for malignant neoplasm of breast; J44.9 Chronic obstructive pulmonary disease, unspecified
CPT/HCPCS: 71250; 77063; 77067

== ENCOUNTER 2025-07-24 15:16 | Outpatient (OUT) | payer MEDICARE, SELFPAY ==
--- OUTSIDE RECORDS SUMMARY | 2024-06-07 08:10 | XMS_ITS ---
Author Organization [facility] in [place] Address [address] [place] [address] Care Team Providers Care Tenant Selector Name Role Phone Wilton Sheth [facility] [phone] REASON FOR VISIT gross hematuria Encounters Encounter Location Date Provider Diagnosis Urology [facility] [address] [address] 06/07/2024 Wilton Sheth Plan Of Treatment No Information Progress Notes * Chelly TILLMANDOB:1945 (80 yo F)Acc No.[id number]:06/07/2024 UNLOCKED PROGRESS NOTE Progress Note Patient: Chelly AGUDELO :?Wilton Sheth, MDDOB:1945???Age:79 Y ???Sex:FemaleDate:06/07/2024hone:[phone]:[address] [place], [place] [id number] Subjective: * Chief Complaints: * 1 . Gross hematuria. * Medical History: Objective: * Vitals: Assessment: Plan: * Treatment: * * Electronic signature of Wilton Sheth MD, [id number] on 07/24/2025 at 03:20 PM ESTSign off status: PendingVisit Status:?CANC (Cancelled) * Provider: Byron Sheth MD Date: 1 Generated for Printing/Faxing/eTransmitting on:?07/24/2025 03:20 PM EST
--- OUTSIDE RECORDS SUMMARY | 2025-07-24 15:20 | XMS_ITS | Clinical Summary ---
Author Organization [facility] Healthcare Address [address] [place] [address] Care Team Providers Care Gear Repairer Name Role Phone Edwin Mohan DO Primary Care Provider [phone] Allergies Active AllergyReactionsCriticalityNoted PfplHhgaltxvBuueqyfgSyrxzNss98/20/2023 SxjszpcumzyekNbjajFbm84/20/2023extromethorphan EupLwcttHkr25/12/2023 joint tightness Medications MedicationSigDispense QuantityRefillsLast FilledStart DateEnd [...] EMPTY STOMACH FOLLOWED IN 30 MINUTES BY QQPAVZWYX99/01/2023ctive albuterol HFA 90 mcg/act inhaler INHALE 2 PUFFS EVERY 4 HOURS NEEDED FOR COUGH/ SHORT OF GVAEAN1805/14/2023 Active losartan-hydroCHLOROthiazide (Hyzaar) 100-25 MG tablet TAKE [...] Sjogren's004/03/2024OSA (obstructive sleep apnea)08/02/2023ILD (interstitial lung disease)08/02/2023ulmonary hwfljkirg09/12/2023iplopia 02/08/2023ry eyes02/08/2023Retinitis retdjwxtnz28/20/2023 Resolved Problems ProblemNoted DateDiagnosed DateResolved DateMorton's neuroma of right foot CO (posterior capsular opacification), trvgdczid95/20/2023 04/03/2024 Immunizations ImmunizationAdministration DatesNext DueInfluenza, High-dose Seasonal, Quadrivalent, Preservative Free06/23/2022Influenza, Seasonal, Quadrivalent, Iytzirotao65/26/2023neumococcal Polysaccharide NGXB6205,11/20/2016 SARS-COV-2 (COVID-19) vaccine, mRNA, spike protein, LNP, PF, leif-sucrose, 30 mcg/0.3 mL05/23/20232677RRIE-SXL-8 (COVID-19) vaccine, mRNA, spike protein, LNP, bivalent, preservative free, 30 mcg/0.3 mLdose, leif-sucrose formulation 05/18/2022Unknown outside /09/2020 Family History Medical HistoryRelationNameCommentsDiabetesFatherHeart diseaseFatherMacular degenerationFatherStrokeFatheradult respiratory distress syndromeMotherRelation NameStatusCommentsFatherDeceasedMotherDeceased Social History Tobacco UseTypesPacks/DayYears UsedDateSmoking Tobacco: FormerCigarettes Smokeless Tobacco: Never Tobacco Cessation:Counseling Given: Not Answered Alcohol UseStandard Drinks/WeekCommentsNever0 (1 standard drink = 0.6 oz pure alcohol)caffeine intake: coffeeCommentsUnknownSex and Gender Information ValueDate RecordedSex Assigned at BirthNot on fileLegal DqkHtezlu65/01/2023 8:34 PM EDTGender IdentityNot on fileSexual OrientationNot on file Last Filed Vital Signs Vital SignReadingTime TakenCommentsBlood Dggyotuu907/8108/02/2023 1:07 PM EST Megff832208/02/2023 1:07 PM ESTTemperature--Respiratory Rate--Oxygen Tcdygzadmy16% 08/02/2023 1:07 PM ESTInhaled Oxygen Concentration--Qqrnjd41.7 kg (200 lb) 08/02/2023 1:07 PM YIHRlhujc546.9 cm (5' 1 )08/02/2023 1:07 PM ESTBody Mass Index37.7908/02/2023 1:07 PM EST Plan of Treatment Not on file Insurance Care Teams Team MemberRelationshipSpecialtyStart DateEnd Date Edwin Mohan DO PCP - GeneralInternal Zxaokucr76/12/23
--- OUTSIDE RECORDS SUMMARY | 2025-07-24 15:20 | XMS_ITS | Patient Health Record ---
Author Organization [facility] Address [address] [place] [place] [address] Care Team Providers Care Home Health Aid Name Role Phone Xavier Ram [phone] Allergies Allergen (clinical drug ingredient) Drug/Non Drug Allergy documented on EMR Reaction Allergy Type Onset Date Status celcor (uncoded)UnknownAllergyActiveciprofloxacinCiproUnknownDrug AllergyActive Reason For Referral No Information Medications Medication SIG (Take, Route, Frequency, Duration) Notes Start Date End Date Status losartan ActiveaspirinActiveatorvastatinActivehydroCHLOROthiazideActivevitamin AActive omeprazoleActiveatenololActive Social History Tobacco Use: Social History Observation Description Date Details (start date - stop date) Never Smoker NA - NA Smoking History Question Answer Notes Smoking Status NonSmoker Problems Problem Type SNOMED Code ICD Code Onset Dates Problem Status W/U Status Risk Notes Problem Osteoarthritis of knee (42310511 7) Primary osteoarthritis of both knees (M17.0) Activeconfirmed Plan Of Treatment No Information Insurance Providers Payer Name Payer Address Payer Phone Subscriber Number Group Number Insured Name Patient Relationship to Insured Coverage Start Date Coverage End [place] [address] [place] [address] [id number] Mohsen ALLEN - [facility] InsurancePO [address] [address] [place] [id number] - patient is the insured Medications Administered Medication Instructions Date of Administration Dosage Notes [employer] rrzqlBoywnrf57/19/202424 echeqPijmctf82/26/202424 unitsHymovis units Medical (General) History Medical History History ICD Code Respiratory problems: Sleep apneaCPAP Machine:Do you use the CPAP machine? YesDrug Allergies
[2025-07-24 15:25] LABS: Hemoglobin 13.2 g/dL (12.0-16.0)
[2025-07-24] MEDS: ALBUTEROL SULFATE 2.5 MG/3 ML VIAL NEB IH (16:39)
== END 2025-07-24 15:17 | disposition home or self-care (01) ==
LOC: CARD 15:16
PROVIDERS: PCP Internal Medicine; Visit Provider Internal Medicine
DX: R09.02 Hypoxemia (principal); R94.2 Abnormal results of pulmonary function studies; J84.9 Interstitial pulmonary disease, unspecified
CPT/HCPCS: 36415; 85018; 94060; 94726; 94729

== ENCOUNTER 2025-08-01 12:10 | Outpatient (OUT) | payer MEDICARE, SELFPAY ==
--- OUTSIDE RECORDS SUMMARY | 2025-07-29 11:01 | XMS_ITS | Continuity of Care Document ---
Author Organization [facility] Address [address] [place] [address] Phone Care Team Providers Care Pneumatic Riveter Name Role Phone Marques Edwin ALBERTO Primary Care Provider Edwin Mohan DO Attending Provider Edwin Mohan DO Referring Provider Kasie Boone APRN Attending Provider [phone] Care Teams Patient Care Team Team Status: Active Member Role/Relationship Status Dates Edwin Mohan DO Primary Care Provider Active Visit Care Team Team Status: Inactive Member [...] May 10, 2025 End: May 10, 2025 Visit Care Team Team Status: Inactive Member Role/Relationship Status Dates Edwin Mohan DO Primary Care Provider Active Start: June 07, 2025 End: June 07landy Mohan DOAttending ProviderActiveStart: June 07, 2025 End: June 07, 2025 Visit Care Team Team Status: Inactive Member Role/Relationship Status Dates Edwin Mohan DO Primary Care Provider Active Start: June 24, 2025 End: June 24landy Mohan DOAttending ProviderActiveStart: June 24, 2025 End: June 24, 2025 Patient Care Team Team Status: Active Member Role/Relationship Status Dates Edwin Mohan DO Primary Care Provider Active Start: July 24, 2025 Akil Arriaga ProviderActiveStart: July 24, 2025 Patient Care Team Team Status: Inactive Member Role/Relationship Status Dates Edwin Mohan DO Primary Care Provider Active Start: July 29, 2025 End: July 29enjaKatherine Aguilar ProviderActiveStart: July 29, 2025 End: July 29, 2025Heidi Paolo , BUSINESS SERVICES ASSOCIATE ACNP-BCAttending ProviderActiveStart: July 29, 2025 End: July 29, 2025 Chief Complaint and Reason for Visit Chief Complaint Admit Date BP Concerns May 07, 2025 2:57pm Back Pain May 10, 2025 1:56pm 4 mo f/u June 07, 2025 1 :22pm URI June 24, 2025 1 0:15am Ref: Dr. Mohan - COPD July 29, 2025 2:18pm Reason for Visit Admit Date Essential hypertension May 07 2 025 2:57pm [...] tober 2024 1:22pm Cigarette nicotine dependence in remissi on June 07, 2025 1:22pm Essential hypertension June 07 1:22pm Lumbar spondylosis June 07, 2025 1 :22pm DUSTIN (obstructive sleep apnea) June 072024 1:22pm Pulmonary nodule June 07, 2025 1 :22pm Pure hypercholesterolemia June 07, 2025 1:22pm Restrictive lung disease June 07 025 1:22pm Type 2 diabetes mellitus with hyperglyce justin June 07, 2025 1:22pm Chronic hypoxic respiratory failure Marie reyes 2024 10:15am Restrictive lung disease June 24 025 10:15am Acute bronchitis due to other specified organisms June 24, 2025 10:15am Chronic hypoxic respiratory failure Dece mber 2024 2:18pm COPD (chronic obstructive pu lmonary disease) with emphysema July 29, 2025 2:18pm Interstitial lung disease July 29, 2025 2:18pm Allergies, Adverse Reactions, Alerts Allergen Type Severity Reaction Last Updated Verified Status Cephalosporins Allergy Unknown Unknown Reaction Dece mber 2024 2:26pm Yes Active ciprofloxacin Allergy Unknown Unknown Reaction Decem juan 2024 2:26pm Yes Active Social History Smoking Status Status Start Date End Date Date of Observa tion Ex-smoker (finding) July 29, 2025 2:32pm Observation Status Observation Response Date of Response Legal Sex Female (finding) Sex Assigned At BirthFemaleSeptember 1944 Family History Relationship Condition Age at Onset Recorded Date/T mervin father Unknown motherDeceasedUnknown Problems Active Problems Problem Diagnosis/Recorded Date Onset Date Status C omments Exercise hypoxemia April 22, 2025 5:42pm Unknown A ctive Orthostatic lightheadednessSeptember 2024 1:07pmUnknownActiveCompression fracture of L1 lumbar vertebraSeptember 2024 3:01pmUnknownActive Gastroesophageal reflux disease with esophagitis without hemorrhageMarch 2023 10:47amUnknownActiveOSA (obstructive sleep apnea)October 31, 2023 10:47am UnknownActivePrimary osteoarthritis of left kneeMarch 2023 10:47amUnknown ActiveType 2 diabetes mellitus with hyperglycemiaMarch 2023 12:13pmUnknown ActiveChronic hypoxic respiratory failureNov2024 10:54amUnknownActive Cigarette nicotine dependence in remissionMarch 2023 10:47amUnknownActive Encounter for screening mammogram for malignant neoplasm of breastApril 2023 11:33amUnknownActiveLow back painSeptember 2024 3:01pmUnknownActive OsteoporosisMarch 2023 10:47amUnknownActiveBack painSeptember 2024 8:59pmUnknownActiveBradycardiaDecember 2023 8:37pmUnknownActivePure hypercholesterolemiaMarch 2023 10:47amUnknownActivePulmonary noduleMarch 2023 10:47amUnknownActiveCT chest: 4mm nodule - 03/2023, 03/2024,HRCT chest: mediastinal LN, airspace lucencies, subpleural blebs, apical scarring, diffuse interstitial changes and atelectasis vs scarring - OPD (chronic obstructive pulmonary disease) with emphysemaDeceer 2024 1:56pmUnknown ActiveAbnormal diffusion capacity determined by pulmonary function testJune 2024 8:41pmUnknownActiveEssential hypertensionMarch 2023 10:47amUnknown ActiveRestrictive lung diseaseMarch 2023 10:47amUnknownActivePFT: FEV1/FVC 89, FEV1 101%, FEF 25-75 234%, TLC 57%, DLCO 36% - 07/2025Recurrent major depressive disorder, in full remissionMarch 2023 10:47amUnknownActiveLeft knee painSeptember 2024 1:06pmUnknownActiveShoulder pain, leftSept2024 1:06pmUnknownActiveChronic venous insufficiencyMarch 2023 10:47amUnknownActiveDiverticulitis large intestineJune 2024 9:35amUnknown ActiveInterstitial lung diseaseOctober 2023 7:59pmUnknownActivePFT: FEV1/FVC 83, FEV1 89%, TLC 72%, DLCO 40% - FT: FEV1/FVC 89, FEV1 101%, FEF 25-75 234%,TLC 57%, DLCO 36% - 07/2025Lumbar spondylosisFebruary 2023 4:28pmUnknownActiveObesitySeptember 2024 8:52pmUnknownActiveASHD (arteriosclerotic heart disease)October 31, 2023 10:47amUnknownActiveEcho: LVEF 65%, LAE, dilated RV w/ normal function, RVSP 64 - ontusion of knee, left April 23, 2025 1:06pmUnknownActiveContusion of shoulder, leftSept2024 1:06pmUnknownActiveInactive/Resolved Problems Problem Diagnosis/Recorded Date Onset Date Status C omments Elbow fracture November 03, 2024 4:32pm Unknown Resolved Gross hematuriaAugust 2023 12:59pmUnknownResolvedFracture of radial head, right, closedMarch 2024 8:54pmUnknownResolved Medications Medication Status Dose Units Route Directions Qty Days Refills S tart Date Stop Date End Date Reason(s) Instructions Adherence Tramadol 50 mg tablet Discontinued 50 MG PO Every 6 hours a s needed for pain 30 7 0 October 06, 2023 12:00am June 20, 2024 7:52pmSpondylosis of lumbar spine Spondylosis without myelopathy or radiculopathy, lumbar regionAtorvastatin 20 mg edrdbzSlkrkwbmpang16VCIWCkygj yqhislh73915Gfykbnuy 2023 12:00amDecember 2023 6:22pmAmoxicillin-Pot Clavulanate 875-125 mg jpsrdqFujpwndbyomh1JCTLK Every 12 jsowz4583Usxlm 2023 8:36amMay 2023 8:57amBlood-Glucose Meter (Onetouch Verio Flex Meter) miscDiscontinued0.Gcrzc43Caduu 2023 11:00pmMay 2023 3:18pmType 2 diabetes mellitus with hyperglycemia Type 2 diabetes mellitus with hyperglycemiaAs directedBlood Sugar Diagnostic (Onetouch Verio Test Strips) stripDiscontinued0.Oidcf9215Inqvy 2023 11:00pmMay 2023 3:21pmType 2 diabetes mellitus with hyperglycemia Type 2 diabetes mellitus with hyperglycemiaAs directedBlood-Glucose Meter (Accu- Chek Guide Glucose Meter) miscActive0.Vrgzm94Hpf2023 11:00pmType 2 diabetes mellitus with hyperglycemia Type 2 diabetes mellitus with hyperglycemiaUse to test home BS qdBlood Sugar Diagnostic (Accu-Chek Guide Test Strips) stripDiscontinued0.Grhfm0338Blu2023 11:00pmJuly 2024 3:10pmType 2 diabetes mellitus with hyperglycemia Type 2 diabetes mellitus with hyperglycemiaUse to test home BS qdPotassium Chloride (Klor-Con M20) 20 mEq tablet,ER particles/xqlubhulNxfiaogbpfsf11CGUAL Hqtzv58921Kom 2023 11:00pmAugust 2023 5:47amPotassium Chloride (Klor- Con M20) 20 mEq tablet,ER particles/crystalsDiscontinued0.ROUTE.ESBDLKK957Oerlhs 2023 5:47amJuly 2024 3:10pmTAKE 1 TABLET BY MOUTH EVERY DAY FOR 30 DAYSLosartan 100 mg tabletDiscontinued0.ROUTE.NQFVEYB075Bdzugcgvl 2023 4:55pmOctober 2024 1:22pmTAKE 1 TABLET BY MOUTH EVERY DAY Hydrochlorothiazide 25 mg tabletDiscontinued0.ROUTE.QWVUGDH738Xahpygjgi 2023 4:55pmSeptember 2024 2:49pmTAKE 1 TABLET BY MOUTH EVERY DAY Escitalopram Oxalate 10 mg tabletDiscontinued0.ROUTE.MMMBREP030Oszdmwzx 2023 7:29amMay 2024 6:36amTAKE 1 TABLET BY MOUTH EVERY DAYAtenolol 25 mg tabletDiscontinued0.ROUTE.PAYWINU911Enjzydtc 2023 10:53pmDecember 2023 5:30pmTAKE 1 TABLET BY MOUTH EVERY DAYAtenolol 25 mg xkucufPouyfcwnagpx36VA BOYbnwu45324Owzwctvi 2023 5:29pmDecember 2023 10:40amOmeprazole 40 mg capsule,delayed release(DR/EC)Active0.ROUTE.QPCGITS928Yafnpwal 2023 6:59amTAKE 1 CAPSULE BY MOUTH EVERY MORNING ON EMPTY STOMACH FOLLOWED IN 30 MINUTES BY BREAKFAST 90Complies with drug therapyAtorvastatin 20 mg tabletActive 0.ROUTE.TNYAGUY736Tvnpdcuo 2023 6:22pmTAKE 1 TABLET BY MOUTH EVERY EVENING Complies with drug therapyBisoprolol Fumarate 5 mg tabletDiscontinued0.ROUTE .QPOJGFM384Hbzwhjd 2024 9:16amJanuary 2024 2:32pmTAKE 1/2 TABLET BY MOUTH ONCE A DAYBisoprolol Fumarate 5 mg tabletDiscontinued0.ROUTE.TUQNGND137 September 17, 2024 2:32pmNovember 2024 6:50amTAKE 1/2 TABLET BY MOUTH ONCE A DAYTramadol 50 mg lqgytbNbxslhtihizh86KMHOZmrod as needed for sdps09272Wpiki 2024 3:31pmSeptember 2024 2:49pmSpondylosis of lumbar spine Spondylosis without myelopathy or radiculopathy, lumbar regionEscitalopram Oxalate 10 mg tabletDiscontinued0.ROUTE.NNQHIGM229Zrz 22nd, 2025 6:36amNovember 2024 6:50amTAKE 1 TABLET BY MOUTH EVERY DAYAmoxicillin-Pot Clavulanate 875-125 mg bsloekKojediqktqzj5EQJPLAotjz 12 fqnuf3098Sogo 2024 11:00pm April 23, 2025 12:41pmPotassium Chloride 20 mEq tablet,ER particles/crystalsActive0.ROUTE.PEGTPJJ008Zkvj 2024 3:09pmOn Hold: PRN TAKE 1 TABLET BY MOUTH EVERY DAY FOR 30 DAYSComplies with drug therapyBlood Sugar Diagnostic (Accu-Chek Guide Test Strips) stripActive0.ROUTE.MXNIGOU8943 March 14, 2025 3:09pmType 2 diabetes mellitus with hyperglycemia Type 2 diabetes mellitus with hyperglycemiaUSE TO TEST HOME BLOOD SUGAR DAILY*E11.65*Baclofen 10 mg wcqjbwYfxakrzhszlj86SXCZPwhbp at kfkmecn75329Royccor 2024 11:00pmOctober 2024 4:22pmBaclofen 10 mg tabletDiscontinued0 .ROUTE.SVDXGVB347XftdwxiMay 31, 2025 4:22pmOctober 2024 1:44pmTAKE 1 TABLET BY MOUTH EVERY DAY AT BEDTIME FOR 15 DAYSBisoprolol Fumarate 5 mg tabletActive 2.0DDNQSbggg05134Xzydsrai 14th, 2025 6:49amComplies with drug therapy Escitalopram Oxalate 10 mg vqkndeAuyrqo67LAWSIppzz12989Tiiuyvwx 2024 6:50amComplies with drug therapyOxycodone-Acetaminophen (Percocet) 5-325 mg tvzulhGwhiyyfsimhv3RRTNEHxazx 8 hours as needed for uqkl9438Gyfvf 2024November 09, 2024 3:30pmFracture of elbowAmoxicillin-Pot Clavulanate 875-125 mg syxqjbJtprdsnduhzm5HXZKVXezuc 12 lyouw4568Unoof 2023 1:40pmE[facility] 2023 8:36amFluconazole 150 mg tnrhjyMvkonxejujpw605FGLKOhnmj2383Mhvxq 2023 11:00pmMay 2023 8:58amAlbuterol Sulfate 90 mcg/actuation HFA aerosol sopvbymZarwpjgilenh9KWJYNOJFHLDCSQOeabr 4 hours as neededEly[facility] Hospital 2023 11:00pmMay 2023 9:27amUmeclidinium-Vilanterol (Anoro Ellipta) 62.5-25 mcg/actuation blister with vezgilUwnmjbosjmyu9COXNSAHIUFLFXPbehsHqpqb 2023 11:00pmMay 2023 8:58amAtenolol 25 mg oscilgTwxgtqajoihd12.5MGPODaNorton [facility] Hospital 2023 11:00pmDecember 2023 10:53pmBenzonatate 200 mg capsule Dqfazmyacjvs372HKDNGwahj times dailyE[facility] 2023 11:00pm[facility] 2024 1:09pmHydrochlorothiazide 25 mg xqyehiUadlifnqhdig03HXLEQinqoTnqbg 2023 11:00pmSeptember 2023 4:55pmLoratadine 10 mg ogjsqtUzspmc86WLEJIaalaVokee 2023 11:00pmComplies with drug therapyLosartan 100 mg tabletDiscontinued 100MGPODaNorton [facility] Hospital 2023 11:00pmSept2023 4:55pmOmeprazole 40 mg capsule,delayed release(DR/EC)Ybijfwpviqhb17GCKVHhymuMumyu 2023 11:00pm August 14, 2024 7:00amOxybutynin Chloride 10 mg tablet extended release 24hr Hfyyutstgvll67HUAAZuzxzTdqiy 2023 11:00pmMa2023 9:19amRosuvastatin 5 mg jkaexxEvdfomvnvwxs1RCFFTwhmd eveningOctober 30, 2023 11:00pmDeceer 2024 2:29pmTolterodine 2 mg capsule,extended release 10qpYhxnthtrjdyh6DSQZMzyal October 30, 2023 11:00pmMay 2023 9:19amFluticasone Propion-Salmeterol 250- 50 mcg/dose blister with gjytyzMpnpflvqizwj6DSTNJGXUAJXDVEkwuw dailyOctober 30, 2023 11:00pmMay 2023 8:58amAmoxicillin-Pot Clavulanate 875-125 mg tablet Sdaknkzedxqx4DLLAWGolsm 12 bcuqh1168Dsffa2023 11:00pmE[facility] 2023 1:41pmEscitalopram Oxalate 10 mg jmlxxuIdigmumjqftk34OBAWEtmjk99982Oayb 12th, 2024 11:00pmDemclaren [facility]2023 7:29amTramadol 50 mg hfvwbkYghljspcrodm19LHKM Daily as needed for uldl39795Ciml 13th, 2024 2:35pmE[facility] 2024 3:32pm Spondylosis of lumbar spine Spondylosis without myelopathy or radiculopathy, lumbar regionNitrofurantoin Monohyd/M-Cryst (Macrobid) 100 mg uvwdeheCsiatngnxkmk438PLJIUoyfn jkobq4233 April 19, 2024 11:00pmDedignity health [facility] 2023 4:55pmmust administer with a meal/foodAtenolol 25 mg svimgrMvxuqasyfcca70.8UVEMSmlti16949Yzehbceg 2023 10:40amDecember 2023 10:49amBisoprolol Fumarate 5 mg tabletDiscontinued2.5 BRMIDglcb95818Nbabwtmn 2023 12:00amJanuary 2024 9:16amBisoprolol Fumarate 5 mg tabletDiscontinued2.8IASTTbqbk482Taqnriii 2023 12:00am August 13, 2024 10:50amAlbuterol Sulfate 90 mcg/actuation HFA aerosol abktfupVoevjq4XFBDPLVMJPCPCTKkfxn 4 hours as needed for shortness of breath or wheezing8.5302December 2023 11:13amComplies with drug therapy Hydrochlorothiazide 25 mg fcsvywQicddc70NGTYLtlox as needed for leg nuvtymhc9944 0September 2024 2:33pmOn Hold: PRNComplies with drug therapyTramadol 50 mg svobpwUnqgnl82SPUNCimyw as needed for qksc90597Gjbzsiozo 2024 2:48pm Spondylosis of lumbar spine Spondylosis without myelopathy or radiculopathy, lumbar regionComplies with drug therapyTramadol 50 mg wxpndlEsqnqnwzrstg20XIBTXamab as needed for hfvc25895Mkdxd 2023 11:00pmJune 2023 2:37pmSpondylosis of lumbar spine Spondylosis without myelopathy or radiculopathy, lumbar regionSulfamethoxazole- Trimethoprim 800-160 mg fvbezjSztheieqcxnl6LBAICSbgco rtsvt7205Zpfpz 2023 11:00pmMay 2023 9:19amValacyclovir 1 gram gfbpbnWwaowm6319YYXAXihzd times sqzjt9234Vym 2023 11:00pmComplies with drug therapyAlbuterol Sulfate 90 mcg/actuation HFA aerosol hbveotkTdeptwownfes9OWLVUMGIPAOJLJXkvzn 4 hours as needed for shortness of breath or wheezing8.5302May 2023 9:26amDecember 2023 11:13amDoxycycline Hyclate 100 mg avfbffkMgkzaasqmkyw033KSJTWwdsj sjgar645Xpactvik 2023 12:00amDecember 2023 5:07pmAmoxicillin 875 mg yplkyaHdmcibcuaqbp659VRDVPolqp fmlgf2968Xdxdcwto 2023 12:00amMarch 2024 1:09pmAmlodipine 5 mg ycpnoqCwyhdh2PYDNSfgks42287Cndhrrt 16th, 2025 11:00pm Complies with drug therapyBaclofen 10 mg fcgtytDchtpr58NMCBPltus at uovjdkx19349 June 07, 2025 1:43pmComplies with drug therapyAmoxicillin-Pot Clavulanate 875-125 mg sbhuuiLepwtgdimhxo6JHSNNWhbem 12 tsyus24049Qanc 2024 11:00pm March 01, 2025 10:15amNitrofurantoin Monohyd/M-Cryst 100 mg capsuleDiscontinued 100MGPOEvery 12 vnpwz9501Xxdq 2024 11:00pmJuly 2024 10:16ammust administer with a meal/foodOxygen unitActive0.ROUTE 2024 12:00amAs directedPrednisone 10 mg vchxvkUhurci62YYSJHm Skrrkrix431Huozohht 2024 12:00am4 tablets daily x 3 days, 2 tablets daily x 3 days, 1 tablet daily x 7 days then stopComplies with drug therapyBenzonatate 100 mg phwxfxcPseeif335FRLU Q8H as needed for aostw387Jrmlgwly 8th, 2025 12:00amComplies with drug therapy Prednisone 20 mg xrounnFrsmypxxsglx73MYHLFm Zrkyhglr7253Rqhnatvrm 2024 11:00pmmclaren bay region2024 2:28pm1 tab tid w/ food x 1 days, then bid w/ food x 2 days, then qd w/ food x 3 daysDoxycycline Hyclate 100 mg mcwapqaGyndoarrovws549 MGPOTwice cyqrg083Icpzthwr 2024 12:00ammclaren bay region2024 2:28pm Immunizations Immunization Event Date Not Given Reason Dose Number Driver Trainee Lot Number Reason(s) Given Vaccine Information Statement (VIS) Detail Administration Location COVID-19 mRNA-1273 (Moderna) September 17, 2020 COVID-19 mRNA, Comirnaty (Pfizer)September 17OVID-19 mRNA, Comirnaty (Pfizer)October 08OVID mRNA, Comirnaty (Pfizer)May 22, 2021 COVID-19 mRNA, Comirnaty (Pfizer)December 12OVI Comirnaty (Pfizer) Tri-Sucrose +December 12OVID mRNA Bivalent Booster (Pfizer)May 18OVID-19 ([employer]) 12Y and olderOctober [id number]- 19 (PFIZER) 12Y and olderSeptember [id number]-29 (PFIZER) 12Y and olderApril 20240033GV3525LRdi, unspecifiedDecember 2016Fluzone TIV High-Dose 65YR+May 10, 2024UT8419BAFluzone TIV High-Dose 65YR+June 07, 2025U8800CAFPG [facility] CenterFluzone QIV High-Dose 65YR+ June 23, 20222146ZM861RGKacrwjbtg vaccine, quadrivalent, adjuvantedSeptember [id number], unspecified formulationSeptember 2019influenza, unspecified formulationNovember 2020influenza, unspecified formulation June 23, 2022influenza, unspecified formulationNovember 2021 Pneumococcal Conjugate Vaccine, 13 valentOctober 2014Pneumococcal Conjugate Vaccine, 13 valentOctober , 2014Pneumococcal Polysacc. Vaccine, 23 valentSeptember 2017Pneumococcal Polysacc. Vaccine, 23 valentSeptember , 2018Pneumococcal Polysacc. Vaccine, 23 valentApril 2016RSV, preF3, adj, pfNovember [id number] Vaccine Recombinant, AdjuvantedAugust 1395I0Y4UNbbhgp Vaccine Recombinant, AdjuvantedMarch 593KK4 Tetanus, Diphtheria, Pertussis (Tdap)May 20, 2024KY27J Relevant Diagnostic Tests and/or Laboratory Data Laboratory Results Test Collection Date/Time Result Date/Time Result Interpretation Reference Range Result Comment Performing Site Hemoglobin July 24, 2025 3:23pm July 24, 2025 3: 23pm 13.2 g/dL 12.0-16.0 Vital Signs Vital Reading Result Reference Range Collection Date/Time Height 61 [in_i] May 07, 2025 2:23bnAtmmiv95.10 kgSeptember 2024 2:12pmHeart Rate60 /qdi62-338Lavnetxen 2024 2:12pmRespiratory rate12 /xzn68-91Jxeuininp 2024 2:12pmBP Fnhlsxmf384 mm[Hg]100-140September 2024 2:12pmBP Dllbgpltj746 mm[Hg]60-100September 2024 2:12pmBMI (Body Mass Index)34.2 kg/w3Whbwcnqfx 2024 2:97ilSzfgct69 [in_i]May 10, 2025 1:26pmWeight 82.10 kgSeptember 2024 1:26pmHeart Rate60 /irc08-372Apklfgvcf 19th, 2025 1:26pmRespiratory rate12 /yeo82-79Awpscdyrn 2024 1:26pmBP Cuafqbru671 mm[Hg]100-140September 2024 1:26pmBP Sasjopkrb52 mm[Hg]60-100September 2024 1:26pmBMI (Body Mass Index)34.2 kg/h7Rvwzawrhi 2024 1:26pm Zbcobn61 [in_i]June 07, 2025 12:69qpLcvcaa31.85 kgOctober 2024 12:38pmHeart Rate56 /uoi53-447Gcvcyhn 2024 12:38pmRespiratory rate12 /min 12-24October 2024 12:38pmBP Elkotxvq819 mm[Hg]100-140October 2024 12:38pmBP Terpemdlf81 mm[Hg]60-100October 2024 12:38pmBMI (Body Mass Index)33.7 kg/c0Wbfyqrd 2024 12:37drYggpio51 [in_i]June 24, 2025 10:50fdEasuti30.73 kgNovember 2024 10:19amHeart Rate60 /blc90-508KnyxjgnqJune 24, 2025 10:19amRespiratory rate12 /hdx61-31Iumqyvxt 3rd, 2025 10:19amBP Wrszdeoj041 mm[Hg]100-140Nov2024 10:19amBP Gffibvcof04 mm[Hg]60-100 June 24, 2025 10:19amBMI (Body Mass Index)33.6 kg/r1Fricfski2024 10:48qiNrmvyv86 [in_i]July 29, 2025 2:65huFvwtrm08.11 kgJuly 29, 2025 2:24pmHeart Rate60 /xpf37-563TyaqsxunJuly 29, 2025 2:24pmRespiratory rate20 /min 12-24July 29, 2025 2:24pmOxygen saturation by Pulse %95-100 July 29, 2025 2:26pmBP Pjzfdyzg100 mm[Hg]100-140July 29, 2025 2:24pmBP Ooqcpskwz06 mm[Hg]60-100Decemb2024 2:24pmBMI (Body Mass Index)35.5 kg/a7PkigbqzbJuly 29, 2025 2:24pmInhaled oxygen flow rate2 L/minDece2024 2:26pm Advance Directives Advance Directive Response Recorded Date/ Time Advance Directives No April 12:55pm Insurance Providers Guarantor Chelly Celestina Tillman Address [address] [id number] Info.Home Phone: Coverage Status Update:2024 Payer Group Member ID Coverage Type Subscriber Relationship to Subscriber Effective Date Expiration Date Medicare [id number] Celestina Tillman Id: [id number] [address] [place] [id number] Home Phone: [employer] [facility] [address] [place] [address] Work Phone: Id: ABRIL [id number] Celestina Tillman Id: [id number] [address] [place] [phone] Home Phone: Self Encounters Encounter Location(s) Arrival/Admit Date Discharge/Departure Date Discharge/Departure Disposition Provider(s) Departed Physician/ Provider Office Visit -[facility] May 07, 2025 2:57pm May 07, 2025 3:52pm Discharged to home care or self care (routine discharge) DO Heavenly Arriagaed Physician/ Provider Office Visit -[facility] May 10, 2025 1:56pm May 10, 2025 3:02pm Discharged to home care or self care (routine discharge) Edwin Mohan DO Departed Physician/ Provider Office Visit -[facility] June 07, 2025 1:22pm June 07, 2025 2:59pm Discharged to home care or self care (routine discharge) Edwin Mohan DO Departed Physician/ Provider Office Visit -[facility] June 24, 2025 10:15am June 24, 2025 10:45am Discharged to home care or self care (routine discharge) Edwin Mohan DO Non-patient / Non-visit -[facility] 2024 3:23pm LINDA Arriagaeparted Physician/Provider [facility] 2:18pmDedign[facility] 2024 4:00pmDischarged to home care or self care (routine discharge)Paulino Nj [employer] [facility] Recent Diagnosis Onset Date Admit Date Essential hypertension Unknown May 07, 2025 2:57pm Obesity Unknown May 07, 2025 2:57pm Orthostatic lightheadedness Unknown Apr 2:57pm Type 2 diabetes mellitus with hyperglycemia Unkn own May 07, 2025 2:57pm Compression fracture of [...] Type 2 diabetes mellitus with hyperglycemia Unkn own June 07, 2025 1:22pm Chronic hypoxic respiratory failure Unknown June 24, 2025 10:15am Restrictive lung disease Unknown Novem2024 10:15am Acute bronchitis due to othe r specified organisms Unknown June 24, 2025 10:15am Chronic hypoxic respiratory failure Unknown July 29, 2025 2:18pm COPD (chronic obstructive pu lmonary disease) with emphysema Unknown July 29, 2025 2:18pm Interstitial lung disease Unknown Decemb er 2024 2:18pm Assessments Diagnosis Onset Date Resolution Status Admit Date Essential hypertension acuteSeptember 2024 2:57pmObesityacuteSeptember 2024 2:57pm Orthostatic lightheadednessacuteSeptember 2024 2:57pmType 2 diabetes mellitus with hyperglycemiaacuteSeptember 2024 2:57pmCompression fracture of L1 lumbar vertebraacuteSeptember 2024 1:56pmLow back painacuteSeptember 2024 1:56pmLumbar spondylosisacuteSeptember 2024 1:56pmASHD (arteriosclerotic heart disease)acuteOctober 2024 1:22pmCigarette nicotine dependence in remissionacuteOctober 2024 1:22pmEssential hypertension acuteOctober 2024 1:22pmLumbar spondylosisacuteOctober 2024 1:22pm DUSTIN (obstructive sleep apnea)acuteOctober 2024 1:22pmPulmonary noduleacute October 2024 1:22pmPure hypercholesterolemiaacuteOctober 2024 1:22pm Restrictive lung diseaseacuteOctober 2024 1:22pmType 2 diabetes mellitus with hyperglycemiaacuteOctober 2024 1:22pmChronic hypoxic respiratory failureacuteNovember 2024 10:15amRestrictive lung diseaseacuteNov2024 10:15amAcute bronchitis due to other specified organismsdeletedNov2024 10:15amChronic hypoxic respiratory failureacuteDecember 2024 2:18pmCOPD (chronic obstructive pulmonary disease) with emphysemaacuteDecember 2024 2:18pmInterstitial lung diseaseacuteDecember 2024 2:18pm Plan of Treatment Author Edwin [facility] CampusAuthoredSeptember 2024 8:53pmIncrease fluids to minimum 40oz daily Hold HCTZ [...] Hyperlipidemia, CAD and arthritis. Author Edwin Mohan [facility] CampusAuthoredOctober 2024 5:21pmReferral to Pulmonary w/o change in treatment Instructed to increase activity and lose weight. PFT w/ mild RLD w/ severe diffusion defect - 05/2023 CT w/ small, stable nodules - 03/2024 6 min walk test: desaturates to 82% after 2 minutes on RA - required 3L/min to prevent desaturation Echo: LVEF 65%, LAE, dilated RV w/ normal function, RVSP 64 - 03/2025 HRCT pending PFT pending Referred to Pulmonary in 07/2023 but no f/u appt. This patient is stable without activity related [...] Age started 21 PPD 2 Age stopped 66 Continue abstinence. LDCT yearly until 81y/o She [...] physical therapy or pain management. Author Edwin [facility] HospitalAuthoredSeptember 2024 3:04pmSecondary to fall several weeks ago w/ increased [...] physical therapy or pain management. Author [facility] HospitalAuthoredNovember 2024 10:56amI have instructed this patient to use Robitussin or Mucinex for cough, saline and Flonase NS for congestion and Tylenol for pain and fever. Continue antibiotics until all the medication has been taken. Report to the ER if develop any CP or SOB Completed HRCT chest and 6 minute walk test. Scheduled for PFT Plan to refer to Noc Technician. Set up for continuous oxygen therapy at 2L/min per NC. She is hypoxic w/ any activity, which results in dyspnea and cough. Future Tests Future scheduled test information is unavailable Pending Tests Test Name Ordered Date Scheduled Date Rheumatoid Factor July 29, 2025 3:27pm Future Visits Future appointment information is unavailable Future Procedures Procedure Name Ordered Date Scheduled Date ELISABET Antinuclear Antibodies July 29, 2025 3: 27pm Erythrocyte Sedimentation RateDecember 2024 3:27pmScleroderma 70 Antibodies July 29, 2025 3:27pm Future Medications Future medication information is unavailable Patient Instructions Instruction Admit Date Low back pain in adults May 10, 2025 1:56pm
--- OUTSIDE RECORDS SUMMARY | 2025-08-01 12:15 | XMS_ITS | CCD ---
Author Organization [facility] Care Team Providers Care Registered Safety Engineer Name Role Phone Edwin Mohan Unavailable FELECIA, [...] Unavailable DO Edwin Mohan Primary Care Provider [phone] DO Edwin Mohan Attending Provider [phone] Ailin CHO, Raphael Luna Attending Unavailable Ailin CHO, Raphael Luna Attending Unavailable Ailin CHO, Anddaisy Luna Attending Unavailable ANGEL CAMPOS Attending Unavailable ANGEL CAMPOS Attending Unavailable ANGEL CAMPOS Attending Unavailable YANY MARTINEZ Attending Unavailable EDWIN MOHAN Primary Care Physician Kari Pepper Attending Unavailable Kari Pepper Admitting Unavailable Kari Pepper Attending Unavailable Edwin Mohan DO Primary Care Provider Roberto Johnson APRN Emergency Provider [phone] Wilfred Orozco DO Attending Provider [phone] Edwin Mohan DO Primary Care Provider Wilfred Orozco DO Attending Provider [phone] Edwin Mohan DO Attending Provider [phone] Edwin Mohan Primary Care Unavailable Wilfred Orozco Admitting Unavailable Wilfred Orozco Attending Unavailable Wilfred Orozco Attending Unavailable Edwin Mohan Primary Care Unavailable Wilfred Orozco Admitting Unavailable Wilfred Orozco Attending Unavailable Edwin Mohan Primary Care Unavailable Wilfred Orozco Admitting Unavailable Ball, Edwin Primary Care Unavailable Roberto Johnson Admitting Unavailable Roberto Johnson Attending Unavailable Genevieve Jernigan Attending Unavailable Rere, Genevieve Admitting Unavailable Galea, Lacey J Attending Unavailable Galea, Lacey J Admitting Unavailable Rere, Genevieve Attending Unavailable Ball DO, Edwin Primary Care Provider Wilfred Orozco DO Attending Provider Kari Pepper Attending Unavailable Genevieve Jernigan Attending Unavailable RereDukeen Admitting Unavailable Ball DO, Edwin Primary Care Provider Ball DO, Edwin Attending Provider Ball DO, Edwin Primary Care Provider Ball DO, Edwin Attending Provider Ball DO, Edwin Primary Care Provider Ball DO, Ewdin Attending Provider Ball DO, Edwin Primary Care Provider Ball DO, Edwin Attending Provider Genevieve Jernigan Attending Unavailable Galrenato, Lacey J Admitting Unavailable Galea, Lacey J Attending Unavailable Galrenato, Lacey J Attending Unavailable Kari Pepper Referring Unavailable Kari Pepper Attending Unavailable Genevieve Jernigan Attending Unavailable Allergies Allergy ClassificationReported Allergen(s)Allergy TypeDate of OnsetReaction(s) Facility (7 sources)Cefaclor; Translations: [Ceclor]Drug AllergyUnknownTCleveland [facility] (20 sources)Ciprofloxacin; Translations: [ciprofloxacin]Drug [id number] Weal (disorder)[facility] (5 sources)Ciprofloxacin; Translations: [Cipro]Drug AllergyThe [facility] (1 source)Robafen DM Cough-Chest CongestDrug allergy (disorder)[facility] (20 sources)Ceclor *CEPHALOSPORINS*Propensity to adverse reactionsUnknowResearch Medical Center [employer] Other (14 sources)Cephalosporins (Antibiotic); Translations: [Cephalosporins]Allergy to xwslgetbe91-54-2007Iezxmhh ReactionMarymount Hospital (9 sources)Cefaclor; Translations: [cefaclor]Drug AllergyWeal (disorder) [facility] (1 source)CiprofloxacinDrug Ztwsikx00-14-9046AyswlrrjoMarymount Hospital Repository Medications Current Medications MedicationDrug Class(es)DatesSig (Normalized)Sig (Original)albuterol HFA 90 mcg/inh MDI (6 sources)Start: 42-35-2115tntmjjrfz HFA 90 mcg/inh MDI Refill(s) 0, Respiratory (Inhalation), 0 Refill(s) Start Date: 04/20/23Status: Ordered Repeat number: 1Start: 19-94-4958bicmbgrkh HFA 90 mcg/inh MDI Refill(s) 0, Respiratory (Inhalation), 0 Refill(s) Start Date: 04/20/23Status: OrderedamLODIPine 5 mg oral tablet (2 sources)Dihydropyridine Calcium Channel BlockerStart: 07-18-7822treo 1 tablet by mouth once dailyAmlodipine 5 mg tablet Active 5 MG PO Daily 90 90 0 June 06, 2025 11:00pm Complies with drug therapyAnoro Ellipta 62.5 mcg-25 mcg inhalation powder (6 sources)Start: 79-21-8774Qvnfu: 02-38-2185qhylrfz 81 mg oral capsule (6 sources)Platelet Aggregation Inhibitor, Nonsteroidal Anti-inflammatory Drug Start: 13-61-3524egkp 1 mg by mouth every twenty-four hoursaspirin 81 mg oral capsule mg cap(s), Oral, q24hr, Refills(s) 0 Start Date: 05/30/24 Status: Ordered Repeat number: 1atorvastatin 20 mg oral tablet (20 sources)HMG-CoA Reductase InhibitorStart: 21-91-1143ywuy 1 tablet by mouth once daily in the eveningAtorvastatin 20 mg tablet Active 0 .ROUTE .COMPLEX 90 3 August 16, 2024 6:22pm TAKE 1 TABLET BYMOUTH EVERY EVENING Complies with drug therapyStart: 09-20-2022 End: 14-01-9357brlf 1 tablet by mouth once daily in the eveningAtorvastatin 20 mg tablet Discontinued 20 MG PO Every evening 90 90 3 October 14, 2023 12:00am August 16, 2024 6:22pmazithromycin 250 mg oral tablet (6 sources)Macrolide AntimicrobialStart: 81-33-8751Fwpfsdmdpekg 250 MG as directed Orally daily for 5 days Jun, Activebaclofen 10 mg oral tablet (20 sources)gamma-Aminobutyric Acid-ergic AgonistStart: 17-04-7775jtjc 1 tablet by mouth once daily at bedtimeBaclofen 10 mg tablet Active 10 MG PO Daily at bedtime 90 90 0 June 07, 2025 1:43pm Complies with drug therapyStart: 05-31-2025 End: 84-49-7816ossy 1 tablet by mouth once daily at bedtimeBaclofen 10 mg tablet Discontinued 0 .ROUTE .COMPLEX 90 May 31, 2025 4:22pm June 07 1:44pm TAKE 1 TABLET BY MOUTH EVERY DAY AT BEDTIME FOR 15 DAYSStart: 05-24-2025 End: 22-52-7964vkrc 1 tablet by mouth once daily at bedtimeBaclofen 10 mg tablet Discontinued 10 MG PO Daily at bedtime May 23, 2025 11:00pm Octob 2024 4:22pmStart: 11-83-4419orgl 1-2 tablets by mouth once at bedtime Baclofen 10 MG 1-2 tablets Orally q HS for 15 days Mar, Activebisoprolol fumarate 5 mg oral tablet (20 sources)beta-Adrenergic BlockerStart: 09-09-2024 End: 97-42-5929qgbc 0.5 tablet by mouth once dailyBisoprolol Fumarate 5 mg tablet Active 0 .ROUTE .COMPLEX 45 September 17, 2024 2:32pm TAKE 1/2 TABLET BY MOUTH ONCE A DAY Complies with drug therapyStart: 08-13-2024 End: 73-29-0837vfnm 2.5 mg by mouth once dailyBisoprolol Fumarate 5 mg tablet Discontinued 2.5 MG PO Daily August 13, 2024 12:00am September 09, 2024 9:16amBlood-Glucose Meter (Accu-Chek Guide Glucose Meter) mis (13 sources)Start: 42-87-1549Gqgvz-Glucose Meter (Accu-Chek Guide Glucose Meter) mis Active 0 .Route 1 December 21, 2023 11:00pm Type 2 diabetes mellitus with hyperglycemia Type 2 diabetes mellitus with hyperglycemia Use to test home BS qd Start: 90-38-5159Cmzkj-Glucose Meter (Accu-Chek Guide Glucose Meter) misc Active 0 .Route 1 December 22, 2023 12:00am Type 2 diabetes mellitus with hyperglycemia Type 2 diabetes mellitus with hyperglycemia Use to test home BS qdStart: 73-33-5722Ahziy-Glucose Meter (Accu-Chek Guide Glucose Meter) misc Active 0 .Route 1 December 22, 2023 12:00am Use to test home BS qddoxycycline hyclate 100 mg oral capsule (14 sources)Tetracycline-class DrugStart: 85-18-1369ezsy 1 capsule by mouth twice dailyDoxycycline Hyclate 100 mg capsule Active 100 MG PO Twice daily June 24, 2025 12:00am Complies with drug therapyStart: 07-30-2024 End: 52-78-6744pzot 1 capsule by mouth twice dailyDoxycycline Hyclate 100 mg capsule Discontinued 100 MG PO Twice daily July 30, 2024 12:00am July 30, 2024 5:07pmescitalopram 10 mg oral tablet (20 sources)Serotonin Reuptake InhibitorStart: 07-26-2024 End: 60-79-8067letr 1 tablet by mouth once dailyEscitalopram Oxalate 10 mg tablet Active 0 .ROUTE .COMPLEX 90 January 10, 2025 6:36am TAKE 1 TABLETBY MOUTH EVERY DAY Complies with drug therapyStart: 02-02-2024 End: 72-47-7396vtud 1 tablet by mouth once dailyEscitalopram Oxalate 10 mg tablet Discontinued 10 MG PO Daily 30 18 01February 01, 2024 11:00pm July 26, 2024 7:29amtake 1 tablet by mouth once daily at bedtimeEscitalopram Oxalate 10 MG TAKE 1 TABLET BY MOUTH EVERYDAY AT BEDTIME for 90 Not-Taking/PRNestradiol 0.1 mg/ml vaginal cream (6 sources)EstrogenStart: 82-19-1726Fnsnkdv 0.1 mg/g Cream See Instructions, 42.5 gm, Refill(s) 1, Apply a pea-sized amount to the vagina/urethra 3x/week for a month, then 2x/week for maintenance, [facility]/pharmacy #[id number], 155, cm, 05/30/24 8 :50:00 EDT, Height/Length Dosing, 81, kg, 05/30/24 8:50:00 EDT, Weight Dosing Start Date: 05/30/24 Status: Ordered Quantity: 42.5 Unit: g Repeat number: 2 loratadine 10 mg oral tablet (20 sources)Start: 30-70-8443hxpx 1 tablet by mouth once dailyLoratadine 10 mg tablet Active 10 MG PO Daily October 30, 2023 11:00pm Complies with drug therapy take 1 capsule by mouth every twenty-four hoursLoratadine 10 MG 1 capsule Orally Once a day Hjuxpj67 hr mirabegron 50 mg extended release oral tablet (2 sources)beta3-Adrenergic AgonistStart: 39-99-5467nwbp 1 tablet by mouth once dailymirabegron 50 mg oral tablet, extended release 50 mg = 1 tab(s), Oral, Daily, # 30 tab(s), Refills(s) 11, [id number], cm, 05/30/24 8:50:00 EDT, Height/Length Dosing, 81, kg, 05/30/24 8:50:00 EDT, Weight Dosing Start Date: 05/30/24 Status: Orderedomeprazole 40 mg delayed release oral capsule (20 sources)Proton Pump InhibitorStart: 33-29-2924tivd 1 capsule by mouth once daily in the morningOmeprazole 40 mg capsule,delayed release(DR/EC) Active 0 .ROUTE .COMPLEX 90 3 August 14, 2024 6:59am TAKE 1 CAPSULE BY MOUTH EVERY MORNING ON EMPTY STOMACH FOLLOWED IN 30 MINUTES BY BREAKFAST 90 Complies with drug therapyStart: 89-62-6778bykukjjrga 40 mg Cap-DR 90 EA, 0 Refill(s), TAKE 1 CAPSULE BY MOUTH EVERY MORNING ON EMPTY STOMACH FOLLOWED IN 30 MINUTES BY BREAKFAST 90, Refills(s) 0 Start Date: 05/30/24 Status: Ordered Repeat number: 1 Start: 10-31-2023 End: 73-13-9866jwhf 1 capsule by mouth once dailyOmeprazole 40 mg capsule,delayed release(DR/EC) Discontinued 40 MG PO Daily October 30, 2023 11:00pm August 14, 2024 7:00amOmeprazole 40 MG TAKE 1 CAPSULE BY MOUTH EVERY MORNING ON EMPTY STOMACH FOLLOWED IN 30 MINUTES BY BREAKFAST for 90 Active Potassium Chloride (Klor-Con M20) 20 mEq tablet,ER particles/crystals (7 sources)Start: 51-49-8949mqze 1 tablet by mouth once dailyPotassium Chloride (Klor-Con M20) 20 mEq tablet,ER particles/crystals Active 0 .ROUTE .COMPLEX 90 April 20, 2024 6:47am TAKE 1 TABLET BY MOUTH EVERY DAY FOR 30 DAYSpredniSONE 20 mg oral tablet (3 sources)Start: 03-07-3225Twsichrqoa 20 mg tablet Active 20 MG PO As Directed 10 7 0 May 09, 2025 11:00pm 1 tab tid w/ food x 1 days, then bid w/ food x 2 days, then qd w/ food x 3 days Complies with drug therapyrosuvastatin calcium 5 mg oral tablet (20 sources)HMG-CoA Reductase InhibitorStart: 55-29-6218gshb 1 tablet by mouth once daily in the eveningRosuvastatin 5 mg tablet Active 5 MG PO Every evening October 30, 2023 11:00pm Complies with drug therapytake 1 tablet by mouth once daily in the eveningRosuvastatin Calcium 5 MG TAKE 1 TABLET BY MOUTH EVERY EVENING Activetrospium chloride 20 mg oral tablet (2 sources)Cholinergic Muscarinic AntagonistStart: 17-69-6731wcdh 1 tablet by mouth once dailytrospium 20 mg oral tablet 20 mg = 1 tab(s), Oral, Daily, # 30 tab(s), Refills(s) 6, Pharmacy: [facility]/pharmacy #[id number], 155, cm, 05/30/24 8:50:00 EDT, Height/Length Dosing, 81, kg, 05/30/24 8:50:00 EDT, Weight Dosing Start Date: 05/30/24 Status: OrderedvalACYclovir 1000 mg oral tablet (13 sources)Herpesvirus Nucleoside Analog DNA Polymerase Inhibitor, Herpes Simplex Virus Nucleoside Analog DNA Polymerase Inhibitor, Herpes Zoster Virus Nucleoside Analog DNA Polymerase InhibitorStart: 28-47-7748Mqmgcoigbrim 1 gram tablet Active 1000 MG PO Three times daily 21 7 0 January 08, 2024 11:00pm Complie s with drug therapyvibegron 75 MG Oral Tablet [Gemtesa] (2 sources)Start: 79-29-6595eeds 1 tablet by mouth once dailyGemtesa 75 mg oral tablet 75 mg = 1 tab(s), Oral, Daily, # 30 tab(s), Refills(s) 11, Pharmacy: [facility]/pharmacy #[id number], 155, cm, 05/30/24 8:50:00 EDT, Height/Length Dosing, 81, kg, 05/30/24 8:50:00 EDT, Weight Dosing Start Date: 05/30/24 Status: Ordered Completed/Discontinued Medications MedicationDrug Class(es)DatesSig (Normalized)Sig (Original)acetaminophen 325 mg / oxyCODONE hydrochloride 5 mg oral tablet (13 sources)Opioid AgonistStart: 11-03-2024 End: 60-38-4013cyse 1 tablet by mouth every eight hours as needed for pain Oxycodone-Acetaminophen (Percocet) 5-325 mg tablet Discontinued 1 TAB PO Every 8 hours as needed for pain 10 3 0 November 03, 2024 November 09, 2024 3:30pm Fracture of [id number] 200 actuat albuterol 0.09 mg/actuat metered dose inhaler (20 sources)beta2-Adrenergic AgonistStart: 10-31-2023 End: 75-60-5817hgxe 1 puff(s) by inhalation every four hours as needed for wheezingAlbuterol Sulfate 90 mcg/actuation HFA aerosol inhaler Discontinued 2 PUFF INHALATION Every 4 hoursas needed for shortness of breath or wheezing 8.5 30 2 January 09, 2024 9:26am August 13, 2024 11:13amStart: 26-99-3935bhgr 2 puff(s) by inhalation every four hours [...] 25 Active amoxicillin 875 mg oral tablet (13 sources)Penicillin-class AntibacterialStart: 07-30-2024 End: 85-77-4229hefu 1 tablet by mouth twice dailyAmoxicillin 875 mg tablet Discontinued 875 MG PO Twice daily 14 7 0 July 30, 2024 12:00am November 05, 2024 1:09pmamoxicillin 875 mg / clavulanate 125 mg oral tablet (20 sources)Penicillin-class AntibacterialStart: 02-07-2025 End: 31-37-9992luow 1 tablet by mouth every twelve hoursAmoxicillin-Pot Clavulanate 875-125 mg tablet Discontinued 1 TAB PO Every 12 hours 14 7 0 February 28, 2025 11:00pm April 23, 2025 12:41pmStart: 10-31-2023 End: 43-39-1975fbvl 1 tablet by mouth every twelve hoursAmoxicillin-Pot Clavulanate 875-125 mg tablet Discontinued 1 TAB PO Every 12 hours 14 7 0 November 08, 2023 1:40pm November 17, 2023 8:36amStart: 83-38-3631zkrj 1 tablet by mouth every twelve hoursAmoxicillin-Pot Clavulanate 875-125 MG 1 tablet Orally every 12 hrs w/ food for 5 days Oct,Not-Taking/PRNatenolol 25 mg oral tablet (20 sources)beta-Adrenergic BlockerStart: 08-13-2024 End: 05-69-0881Kiiointi 25 mg tablet Discontinued 12.5 MG PO Daily 45 90 3 August 13, 2024 10:40am August 13, 2024 10:49amStart: 08-07-2024 End: 61-44-6605xblk 1 tablet by mouth once dailyAtenolol 25 mg tablet Discontinued 25 MG PO Daily 90 90 3 August 07, 2024 5:29pm August 13, 2024 10:40amStart: 08-06-2024 End: 28-85-6658ofzu 1 tablet by mouth once dailyAtenolol 25 mg tablet Discontinued 0 .ROUTE .COMPLEX 90 3 August 06, 2024 10:53pm August 07, 2024 5:30pm TAKE 1 TABLET BY MOUTH EVERY DAYStart: 10-31-2023 End: 25-65-6217Srypdvsi 25 mg tablet Discontinued 12.5 MG PO Daily October 30, 2023 11:00pm August 06, 2024 10:53pmStart: 88-96-2523azkm 0.5 tablet by mouth once dailyAtenolol 25 MG 1/2 tablet Orally Once a day for 30 days Jul, Activetake 1 tablet by mouth once dailyAtenolol 25 MG TAKE 1 TABLET BY MOUTH EVERY DAY for 90 Activebenzonatate 200 mg oral capsule (20 sources)Non-narcotic AntitussiveStart: 10-31-2023 End: 73-50-4849sioi 1 capsule by mouth three times dailyBenzonatate 200 mg capsule Discontinued 200 MG PO Three times daily October 30, 2023 11:00pm November 05, 2024 1:09pmStart: 31-91-2390uhho 1 capsule by mouth every eight hours Benzonatate 200 MG 1 capsule Orally Three times a day for 10 Oct, Active Blood-Glucose Meter (Onetouch Verio Flex Meter) misc (13 sources)Start: 12-21-2023 End: 27-43-6725Pxufm-Glucose Meter (Onetouch Verio Flex Meter) misc Discontinued 0 .Route 1 0 December 20, 2023 11:00pm December 22, 2023 3:18pm Type 2 diabetes mellitus with hyperglycemia Type 2 diabetes mellitus with hyperglycemia As directedStart: 12-21-2023 End: 97-89-1250Xwtyc-Glucose Meter (Onetouch Verio Flex Meter) misc Discontinued 0 .Route 1 0 December 21, 2023 12:00am December 22, 2023 4:18pm Type 2 diabetes mellitus with hyperglycemia Type 2 diabetes mellitus with hyperglycemia As directedStart: 12-21-2023 End: 10-29-7225Uyjtx-Glucose Meter (Onetouch Verio Flex Meter) misc Discontinued 0 .Route 1 December 21, 2023 12:00am December 22, 2023 4:18pm As directedcycloSPORINE Opth 0.05% Emul (6 sources)Start: 70-84-3409eabdxTXXPAEN Opth 0.05% Emul drop(s), q12hr, Refill(s) 0 Start Date: 05/30/24 Status: Ordered Repeatnumber: 1Start: 05-30-2024 cycloSPORINE Opth 0.05% Emul drop(s), q12hr, Refill(s) 0 Start Date: 05/30/24 Status: Orderedfluconazole 150 mg oral tablet (17 sources)Azole AntifungalStart: 06-21-2191Iqzozjuo 150 mg Tab 300 mg = 2 tab(s), Oral, Once, Take 1 tab by mouth. May repeat dose in 72 hoursif symptoms persist., # 2 tab(s), Refills(s) 0, [id number], cm, 04/10/25 8:57:00 EDT, Height/Length Dosing, 80.9, kg, 04/10/25 8:57:00 EDT, Weight Dosing Start Date: 04/10/25 Status: Ordered Quantity: 2.0 Unit: tab(s) Repeat number: 1 Indications: Other specified noninflammatory disorders of vagina;Start: 45-07-0543mocqhcjnqeg 150 mg Tab 150 mg = 1 tab(s), Oral, Once, If symptoms persist after 72 hours, may repeat dose. If symptoms persist after another 72 hours, may repeat 3rd and final dose., # 1 tab(s), Refills(s) 2, [id number] 155, cm, 03/12/25 11:55:00 EDT, Height/Length Dosing, 81.2, kg, 03/12/25 11:55:00 EDT, Weight Dosing Start Date: 03/12/25 Status: Ordered Quantity: 1.0 Unit: tab(s) Repeat number: 3 Indications: Gross hematuria;Start: 11-08-2023 End: 03-22-9110ychq 1 tablet by mouth once dailyFluconazole 150 mg tablet Discontinued 150 MG PO Daily 2 14 0 November 07, 2023 11:00pm January 02, 2024 8:58amFluticasone Propion-Salmeterol (20 sources)Corticosteroid, beta2-Adrenergic AgonistStart: 10-31-2023 End: 26-18-6918Zzcuurewsew Propion-Salmeterol 250-50 mcg/dose blister with device Discontinued 1 INH INHALATION Twice daily October 30, 2023 11:00pm January 02, 2024 8:58amStart: 10-31-2023 End: 65-63-7558Fepfmtrxsfg Propion-Salmeterol 250-50 mcg/dose blister with device Discontinued 1 INH INHALATION Twice daily October 31, 2023 12:00am January 02, 2024 9:58amStart: 25-84-7988vmzr 1 puff(s) by inhalation twice dailyWixela Inhub 250-50 MCG/ACT 1 puff Inhalation Twice a day for 30 days May, ActivehydroCHLOROthiazide 25 mg oral tablet (20 sources)Thiazide DiureticStart: 27-66-6765tzfa 1 tablet by mouth once daily as neededHydrochlorothiazide 25 mg tablet Active 25 MG PO Daily as needed for leg swelling 90 90 0 2024 2:33pm On Hold: PRN Complies with drug therapyStart: 18-35-8797wmkyavlmyazvhsojczd 25 mg Tab 90 EA, 0 Refill(s), TAKE 1 TABLET BY MOUTH EVERY DAY, Refills(s) 0 Start Date: 05/30/24 Status: Ordered Repeat number: 1Start: 05-20-2024 End: 23-61-6298emls 1 tablet by mouth once dailyHydrochlorothiazide 25 mg tablet Discontinued 0 .ROUTE .COMPLEX 90 3 May 20, 2024 4:55pm May 07, 2025 2:49pm TAKE 1 TABLET BY MOUTH EVERY DAYStart: 10-31-2023 End: 31-77-5305mqsw 1 tablet by mouth once dailyHydrochlorothiazide 25 mg tablet Discontinued 25 MG PO Daily October 30, 2023 11:00pm May 20, 2024 4:55pmtake 1 tablet by mouth once dailyhydroCHLOROthiazide 25 MG TAKE 1 TABLET BY MOUTH EVERY DAY for 90 ActiveLidocaine (20 sources)Antiarrhythmic, Amide Local AnestheticStart: 01-20-4890Ujglnfsxo Mar, 30 mglosartan potassium 100 mg oral tablet (20 sources)Angiotensin 2 Receptor BlockerStart: 38-01-4772iqavwppk 100 mg Tab 90 EA, 0 Refill(s), TAKE 1 TABLET BY MOUTH EVERY DAY, Refills(s) 0 Start Date: Status: Ordered Repeat number: 1Start: 05-20-2024 End: 68-08-8465enrc 1 tablet by mouth once dailyLosartan 100 mg tablet Discontinued 0 .ROUTE .COMPLEX 90 3 May 20, 2024 4:55pm June 07, 2025 1:22pm TAKE 1 TABLET BY MOUTH EVERY DAYStart: 10-31-2023 End: 94-92-4940oyxn 1 tablet by mouth once dailyLosartan 100 mg tablet Discontinued 100 MG PO Daily October 30, 2023 11:00pm May 20, 2024 4: 55pmtake 1 tablet by mouth once dailyLosartan Potassium 100 MG TAKE 1 TABLET BY MOUTH EVERY DAY for 90 Activenitrofurantoin, macrocrystals 25 mg / nitrofurantoin, monohydrate 75 mg oral capsule (18 sources)Nitrofuran AntibacterialStart: 02-28-2025 End: 83-18-9097bzki 1 capsule by mouth every twelve hours at mealtime Nitrofurantoin Monohyd/M-Cryst 100 mg capsule Discontinued 100 MG PO Every 12 hours 10 5 0 February 27, 2025 11:00pm March 01, 2025 10:16am must administer with a meal/foodStart: 04-20-2024 End: 80-48-2877fkdm 1 capsule by mouth twice daily at mealtimeNitrofurantoin Monohyd/M-Cryst (Macrobid) 100 mg capsule Discontinued 100 MG PO Twice daily 10 5 0 April 19, 2024 11:00pm July 30, 2024 4:55pm must administer with a meal/food24 hr oxybutynin chloride 10 mg extended release oral tablet (20 sources)Cholinergic Muscarinic AntagonistStart: 10-31-2023 End: 33-76-8429jryj 1 tablet by mouth once dailyOxybutynin Chloride 10 mg tablet extended release 24hr Discontinued 10 MG PO Daily October 291:00pm January 02, 2024 9:19amtake 1 tablet by mouth every twenty-four hoursoxyBUTYnin Chloride ER 10 MG 1 tablet Orally Once a day Activemicroencapsulated potassium chloride 20 meq extended release oral tablet (20 sources)Start: 04-20-2024 End: 21-26-6314yzbk 1 tablet by mouth once daily as neededPotassium Chloride 20 mEq tablet,ER particles/crystals Active 0 .ROUTE .COMPLEX 90 3 March 14, 2025 3:09pm On Hold: PRN TAKE 1 TABLET BY MOUTH EVERY DAY FOR 30 DAYS Complies with drug therapyStart: 12-28-2023 End: 16-74-5170Qbiypxvin Chloride (Klor-Con M20) 20 mEq tablet,ER particles/crystals Discontinued 20 MEQ PO Daily 30 30 5 December 27, 2023 11:00pm April 20, 2024 5:47amsulfamethoxazole 800 mg / trimethoprim 160 mg oral tablet (13 sources)Dihydrofolate Reductase Inhibitor Antibacterial, Sulfonamide AntimicrobialStart: 12-09-2023 End: 79-13-2382gfia 1 tablet by mouth twice dailySulfamethoxazole-Trimethoprim 800-160 mg tablet Discontinued 1 TAB PO Twice daily 10 5 0 December 08, 2023 11:00pm January 02, 2024 9:19amSuprep Bowel Prep Kit 17.5-3.13-1.6 GM/180ML (20 sources)Start: 52-97-2926Xtqxpb Bowel Prep Kit 17.5-3.13-1.6 GM/180ML 1 bottle at 4pm, 1 bottle at 11pm the day prior to colonoscopy Orally Once a day for 2 day(s) Apr, Not-Taking/PRNStart: 36-67-9665Paeupe Bowel Prep Kit 17.5-3.13-1.6 GM/180ML 1 bottle at 4pm, 1 bottle at 11pm the day prior to colo noscopy Orally Once a day for 2 day(s) Apr, Not-Qzhety54 hr tolterodine tartrate 2 mg extended release oral capsule (20 sources)Cholinergic Muscarinic AntagonistStart: 10-31-2023 End: 24-45-4058flql 1 capsule by mouth once dailyTolterodine 2 mg capsule,extended release 24hr Discontinued 2 MG PO Daily October 30, 2023 11:00pm January 02, 2024 9:19amtake 1 capsule by mouth every twenty-four hours Tolterodine Tartrate ER 2 MG 1 capsule Orally Once a day ActivetraMADol hydrochloride 50 mg oral tablet (20 sources)Opioid AgonistStart: 12-20-2023 End: 54-84-0847zuje 1 tablet by mouth once daily as needed for painTramadol 50 mg tablet Discontinued 50 MG PO Daily as needed for pain 15 30 0 February 02, 2024 2:35pmMar2024 3:32pm Spondylosis of lumbar spine Spondylosis without myelopathy or radiculopathy, lumbar regionStart: 06-09-2023 End: 18-94-6247lqdi 1 tablet by mouth every six hours as needed for painTramadol 50 mg tablet Discontinued 50 MG PO Every 6 hours as needed for pain 30 7 0 October 06, 2023 12:00am June 20, 2024 7:52pm Spondylosis of lumbar spine Spondylosis without myelopathy orradiculopathy, lumbar regionStart: 98-41-1045bkpw 1 tablet by mouth twice daily as needed for paintraMADol HCl 50 MG 1 tablet as needed Orally twice daily as needed for pain Mar, Active triamcinolone acetonide 40 mg/ml injectable suspension (20 sources)CorticosteroidStart: 98-66-0690Ogccypc-40 Mar, 40 mg7 actuat umeclidinium 0.0625 mg/actuat / vilanterol 0.025 mg/actuat dry powder inhaler (20 sources)Anticholinergic, beta2-Adrenergic AgonistStart: 10-31-2023 End: 91-30-6207Oqxzesufbfka-Vilanterol (Anoro Ellipta) 62.5-25 mcg/actuation blister with device Discontinued 1 INH INHALATION Daily October 30, 2023 11:00pm January 02, 2024 8:58amtake 1 puff(s) by inhalation once dailyAnoro Ellipta 62.5- 25 MCG/ACT 1 puff Inhalation Once a day for 30 days Activetake 1 puff(s) by inhalation once dailyAnoro Ellipta 62.5-25 MCG/ACT 1 puff Inhalation Once a day for 30 days Active Problems Active Problems Problem ClassificationProblemDateDocumented DateEpisodic/ChronicAnxiety disorders (2 sources)Generalized anxiety disorder; Translations: [Generalized anxiety disorder]ChronicBacterial infection; unspecified site (2 sources)Infection due to ESBL bacteriaOnset: 216676-44-0020Ocyeiigi Comment on above:ESBL E coli in urine 03/12/2025ESBL E coli in urineCardiac dysrhythmias (17 sources)Bradycardia; Translations: [Bradycardia, unspecified]08-13-2024 EpisodicChronic obstructive pulmonary disease and bronchiectasis (20 sources)Simple chronic bronchitis; Translations: [Simple chronic bronchitis] ChronicConditions associated with dizziness or vertigo (14 sources)Orthostatic hypotension; Translations: [Dizziness and giddiness] 74-64-2540XdqrwnbbTnvjoqra atherosclerosis and other heart disease (20 sources)Coronary arteriosclerosis; Translations: [Atherosclerotic heart disease of [place] coronary artery without angina pectoris]ChronicComment on above:Echo: LVEF 65%, LAE, dilated RV w/ normal function, RVSP 64 - 03/2025 Diabetes mellitus with complications (20 sources)Type 2 diabetes mellitus; Translations: [Type 2 diabetes mellitus with hyperglycemia]Onset: 94-60-5714QfmrzjvXhanvhiut of lipid metabolism (20 sources)Pure hypercholesterolemia; Translations: [Pure hypercholesterolemia, unspecified]Onset: 66-87-2074MhtuzmgDfafibsskgkoei and diverticulitis (20 sources)Diverticulitis of colon; Translations: [Diverticulitis of large intestine without perforation or abscess without bleeding]Onset: 05-01-2018 06-60-2838LelmnhsOileuksbpt disorders (20 sources)Gastro-esophageal reflux disease with esophagitis; Translations: [Gastroesophageal reflux disease with esophagitis without hemorrhage]10-31-2023 ChronicEssential hypertension (20 sources)Essential hypertension; Translations: [Essential (primary) hypertension]Onset: 90-57-5359CjetcjrAlhqnwbt of upper limb (20 sources)Elbow fracture; Translations: [Unspecified fracture of lower end of unspecified humerus, initial encounter for closed fracture]Onset: 11-03-2024 26-69-3376UscbwqdgDzdvurzqedrqh symptoms and ill-defined conditions (12 sources)Incontinence; Translations: [Mixed incontinence]Onset: 05-30-2024 35-32-9133KubamolRadmztjycfetn symptoms and ill-defined conditions (20 sources)Oliguria and anuria; Translations: [Anuria and oliguria]Onset: 747887-24-1796UpbeigllRvhqwlyvlflie and screening for infectious disease (2 sources)Vaccination given; Translations: [Encounter for immunization]Episodic Menopausal disorders (10 sources)Primary ovarian failure; Translations: [Other primary ovarian failure]Onset: 32-51-9769WuinkrbUzvw disorders (20 sources)Recurrent major depression in full [...] current use of drug therapy; Translations: [Other half-way (current) drug therapy]EpisodicOther diseases of bladder and urethra (2 sources)Overactive bladder; Translations: [Overactive bladder]ChronicOther diseases of veins and lymphatics (20 sources)Peripheral venous insufficiency; Translations: [Venous insufficiency (chronic) (peripheral)]38-15-4024CfwxqvihExrhy diseases of veins and lymphatics (1 source)Venous insufficiency (chronic) (peripheral)EpisodicOther ear and sense organ disorders (8 sources)Impacted cerumen; Translations: [Impacted cerumen, unspecified ear] 50-62-0048BcbrnlguDxroz ear and sense organ disorders (4 sources)Impacted cerumen, unspecified ear; Translations: [Impacted cerumen] 90-73-9379GxbpcuuqBgzxi female genital disorders (1 source)Noninflammatory disorder of the vagina; Translations: [Other specified noninflammatory disorders ofvagina]Onset: 13-76-7109MvbsvrwaLvlub fractures (4 sources)Compression fracture of lumbar spine; Translations: [Wedge compression fracture of first lumbar vertebra, initial encounter for closed fracture]99-52-3026AbjrvlbnVabaz inflammatory condition of skin (2 sources)Pruritus of -44-2247KbmfugnzApvua injuries and conditions due to external causes (2 sources)History of fall; Translations: [History of falling]EpisodicOther lower respiratory disease (17 sources)Interstitial lung disease; Translations: [Interstitial pulmonary disease, unspecified]52-78-0136WidlosjQkeew lower respiratory disease (7 sources)Interstitial pulmonary disease, unspecified; Translations: [Postinflammatory pulmonary fibrosis]61-43-3578UqaihnhTrhyn lower respiratory disease (20 sources)Nodule of lung; Translations: [Solitary pulmonary nodule]04-04-2024 EpisodicComment on above:CT chest: 4mm nodule - 03/2023, T chest: 4mm nodule - 03/2023, 03/2024,HRCT chest: mediastinal LN, airspace lucencies, subpleural blebs, apical scarring, diffuse interstitial changes and atelectasis vs scarring - 05/2025Other lower respiratory disease (11 sources)Solitary pulmonary nodule; Translations: [Solitary pulmonary nodule] EpisodicOther lower respiratory disease (1 source)Other forms of dyspneaEpisodicOther lower respiratory disease (10 sources)Other disorders of lung; Translations: [Other diseases of lung, not elsewhere classified]EpisodicOther lower respiratory disease (17 sources)Restrictive lung disease; Translations: [Other disorders of lung] 15-97-5585EuipardjLifdl lower respiratory disease (9 sources)Hypoxemia; Translations: [Hypoxemia]98-04-3800OkjzedobGbexs non- traumatic joint disorders (20 sources)Arthralgia of the lower leg; Translations: [Pain in left knee] EpisodicOther non-traumatic joint disorders (11 sources)Pain in left knee; Translations: [Left knee pain]EpisodicOther non- traumatic joint disorders (10 sources)Pain in left shoulder; Translations: [Left shoulder pain]04-23-2025 EpisodicOther nutritional; endocrine; and metabolic disorders (20 sources)Obesity; Translations: [Obesity, unspecified] Resolved: 278042-72-1974NbfiwtdKebit nutritional; endocrine; and metabolic disorders (4 sources)Body mass index 40+ - severely obese; Translations: [Body mass index (BMI) 40.0-44.9, adult]Onset: 60-22-4489QflquuaKftyn nutritional; endocrine; and metabolic disorders (2 sources)Morbid [...] neoplasm of breast; Translations: [Patient encounter status]Onset: 18-53-9751QxgwsfovFnaji skin disorders (2 sources)Hypertrophic condition of skin; Translations: [Other hypertrophic disorders of the skin]EpisodicOther upper respiratory disease (8 sources)Vasomotor rhinitis; Translations: [Vasomotor rhinitis]08-13-2024 ChronicOther upper respiratory disease (4 sources)Vasomotor rhinitis; Translations: [Allergic rhinitis, cause unspecified]46-71-8449IwgaxxwPtwyy upper respiratory infections (4 sources)Acute maxillary sinusitis, unspecified; Translations: [Acute maxillary sinusitis]EpisodicOtitis media and related conditions (2 sources)Eustachian tube salpingitis; Translations: [Unspecified Eustachian salpingitis, left ear]EpisodicResidual codes; unclassified (20 sources)Obstructive sleep apnea syndrome; Translations: [Obstructive sleep apnea (adult) (pediatric)]20-17-1524PbiuicfCtqykgfq codes; unclassified (11 sources)Obstructive sleep apnea (adult) (pediatric); Translations: [Obstructive sleep apnea (adult)(pediatric)]ChronicResidual codes; unclassified (2 sources)Postmenopausal state; Translations: [Asymptomatic menopausal state] EpisodicSpondylosis; intervertebral disc disorders; other back problems (20 sources)Lumbar spondylosis; Translations: [Spondylosis without myelopathy or radiculopathy, lumbar region]93-45-6499ZzqtrboQzblqjxptad; intervertebral disc disorders; other back problems (20 sources)Pain in thoracic spine; Translations: [Pain in thoracic spine]Onset: 12-28-8037PfueypnaIojsomdtq-related disorders (20 sources)Tobacco dependence in remission; Translations: [Nicotine dependence, cigarettes, in remission]ChronicSuperficial injury; contusion (20 sources)Contusion of left knee; Translations: [Contusion of left knee, initial encounter]64-13-0265BeyaauzaVcuew infection (2 sources)Herpes zoster with complication; Translations: [Zoster with other complications]Episodic Past or Other Problems Problem ClassificationProblemDateDocumented DateEpisodic/ChronicAbdominal pain (2 sources)Left lower quadrant pain; Translations: [Left lower quadrant pain] Onset: 57-70-0635BgkrcfwcCgclz bronchitis (2 sources)Acute bronchitis; Translations: [Acute bronchitis, unspecified]Onset: 78-81-6554JkqybblwJrjeblla mellitus without complication (2 sources)Impaired fasting glycemia; Translations: [Impaired fasting glucose] Resolved: 06-43-4495ZzllwifnRyonlojo of mouth; excluding dental (2 sources)Recurrent aphthous stomatitis; Translations: [Recurrent oral aphthae] Onset: 90-49-6725YkdjovwtGovyqjbbpy disorders (6 sources)Esophageal disorders; Translations: [Gastro-esophageal reflux disease with esophagitis, without bleeding]Fluid and electrolyte disorders (2 sources)Dehydration; Translations: [Dehydration]Onset: 78-56-1180Ddjlhiyk Other aftercare (2 sources)Other buttermaker helper (current) drug therapy; Translations: [OTH OFFAL ICER POULTRY CURRENT DRUG THERAPY]Onset: 78-11-6817FrvmhelpQqmjh and unspecified benign neoplasm (2 sources)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; Translations: [Other benign neoplasm of skin of scalp and neck]Onset: 10-02-1139HhrtyrtqZplqz connective tissue disease (2 sources)Spasm; Translations: [Cramp and spasm]Onset: 60-29-5493TdulfztkZrmas diseases of kidney and ureters (10 sources)Stricture of ureter; Translations: [Crossing vessel and stricture of ureter without hydronephrosis]Onset: 684182-60-6962CgerxpamHuotrjclpxud (1 source)Acute cough R05.1Unclassified (1 source)Acute bilateral low back pain without sciatica M54.50Unclassified (1 source)Suspected COVID-19 virus infection Z20.822Urinary tract infections (2 sources)Acute cystitis; Translations: [Acute cystitis without hematuria] Onset: 20-73-0178Nthdlqbl Results Test NameValueInterpretationReference RangeFacilityReminderson 06-26-2025 RemindersReminders From: Kelly Su To: EU - Administrative; Sent: 04/10/2025 09:21:28 EDT Show up: 06/22/2025 09:21:00 EDT Subject: 6m f/u Due Date/Time: 10/11/2025 09:21:00 EST Reminder/Recall Needs scheduled with LT in 6 months with a PVR, due back 10/11/25 [facility] Urineon 28-75-7978Ncqfpjrz identified Cx Nom (U)Microbiology PROCEDURE: Urine Culture [...] Locations R1: This test was performed at: [facility], [address] [place] [address], [facility] , , WjuuatHutnkeSelect Medical Specialty Hospital - Cleveland-FairhillComment on above:Performed By: #### [id number] #### [facility] [address] [place], [place] [address]Ambulatory Visit Summaryon 43-68-6350Ucxplsvnad Visit Summary Ambulatory Visit Summary CHELLY TILLMAN [...] 72 hours if symptoms persist. Pickup at [facility]/pharmacy #[id number] Unchanged albuterol (albuterol HFA 90 mcg/ inh [...] Unknown, Respiratory (Inhalation), 0 Refill(s) Pharmacy Information [facility]/pharmacy #[id number]: [address], [place] [phone] Allergies Cipro (Hives) cefaclor (Hives) Problems Ongoing [...] older than age 50. (more content not included)...NormalFisher Brook Lane Psychiatric CenterUrology Office/Clinic Noteon 07-31-4543Jvnevhu Office/Clinic NoteUrology Office/Clinic Note Chief Complaint 3 [...] to cover for s (more content not included)...[facility]-FairhillComment on above:Result Comment: Electronically Signed By: Rere BENDER, Genevieve\.br\Date and Time Signed: 04/10/25 09:43 EDTBasophils Auto (Bld) [#/Vol]Ordered By: Edwin Mohan on 04-05-2025 Basophils (Bld) [#/Vol]0.0 10 3/uL0.0-0.1FMercy Health Willard Hospital Basophils/100 WBC Auto (Bld)Ordered By: Edwin Mohan on 79-79-1600Ebzdcrgib/100 WBC (Bld)0.3 %0.2-2.0[facility] HospitalCholesterol in LDL Calc [Mass/Vol]Ordered By: Edwin Mohan on 95-06-6810Fbjrouayykn in LDL [Mass/Vol] 55.8 mg/dLMarymount HospitalComment on above:<100 mg/dl HFQMVOI325-131 mg/dl NEAR OR ABOVE UKTNPYQ647-066 mg/dl BORDERLINE GTUL297-799 mg/dl HIGH>190 mg/dl VERY HIGHCholesterol in VLDL Calc [Mass/Vol]Ordered By: Edwin Mohan on 37-50-3830Fvmqopuxjmu in VLDL [Mass/Vol]13.2 mg/dLMarymount HospitalEosinophils/100 WBC Auto (Bld)Ordered By: Edwin Mohan on 19-02-8149Dzdkdryrfkq/100 WBC (Bld)5.7 %0.9-7.0Mary[facility] HospitalErythrocyte distribution width Auto (RBC) [Ratio]Ordered By: Edwin Mohan on 69-70-3725Vtewxphwlbl distribution width (RBC) [Ratio]14.2 %11.0-15.0 [facility] HospitalGlobulin Calc (S) [Mass/Vol]Ordered By: Edwin Mohan on 38-26-7836Joqsfedz (S) [Mass/Vol]4.3 g/dLMarymount HospitalGlomerular filtration rate (GFR) estimation in non- AmericanOrdered By: Edwin Mohan on 49-58-2702NQM/1.73 sq M.predicted among non-blacks MDRD (S/P/Bld) [Vol rate/Area]mL/min/{1.73_m2}>=60 mL/min/1.73m 2 [facility] HospitalGlucose mean value [Mass/volume] in Blood Estimated from glycated hemoglobinOrdered By: Edwin Mohan on 23-48-6041Kcvsldt glucose Estimated from glycated hemoglobin (Bld) [Mass/Vol]120 mg/dLMarymount HospitalHematocrit Auto (Bld) [Volume fraction]Ordered By: Edwin Mohan on 90-73-7489Wxsrymjzcg (Bld) [Volume fraction]42.6 %36.0-48.0 [facility] HospitalHemoglobin A1c percentageOrdered By: Edwin Mohan 18-32-5987TrZ8g (Bld) [Mass fraction]5.8 %4.5-6.2FMercy Health Willard HospitalComment on above:ADA RECOMMENDED LIMIT 4.0 - 6.0ADA THERAPEUTIC TARGET < 7.0ACTION SUGGESTED> 7.0Hemoglobin [Mass/volume] in BloodOrdered By: Edwin Mohan on 57-36-7010Ymusoxxkvm (Bld) [Mass/Vol]13.7 g/dL12.0-16.0 [facility] HospitalLaboratory - Chemistry and Chemistry - challengeOrdered By: Edwin Mohan 24-90-7313Uoxbsmh [Mass/Vol]3.6 g/dL 3.4-5.0[facility] HospitalALP [Catalytic activity/Vol]116 U/L 46-116Mary[facility] HospitalALT [Catalytic activity/Vol]25 U/L14-59 [facility] HospitalAST [Catalytic activity/Vol]22 U/L15-37 [facility] HospitalBilirubin [Mass/Vol]0.8 mg/dL0.2-1.0[facility] HospitalCalcium [Mass/Vol]9.5 mg/dL8.5-10.1FMercy Health Willard HospitalChloride [Moles/Vol]106 mmol/C27-471YcqrmkxmhMarymount HospitalCholesterol [Mass/Vol]118 mg/dL<=200[facility] Cholesterol in HDL [Mass/Vol]49 mg/uT36-14RbgfigkhqMarymount Hospital Comment on above:> or =60 mg/dl - LOW CARDIOVASCULAR RISK<40 mg/dl - HIGH CARDIOVASCULAR RISKCO2 [Moles/Vol]26.6 mmol/L21.0-32.0[facility] HospitalCreatinine [Mass/Vol]0.56 mg/dL0.55-1.02[facility] GFR/1.73 sq M.predicted MDRD (S/P/Bld) [Vol rate/Area]mL/min/{1.73_m2}>=60 mL/min/1.73m 2FMercy Health Willard HospitalGlucose [Mass/Vol]109 mg/dLHigh 74-106Mary[facility] HospitalPotassium [Moles/Vol]4.4 mmol/L3.5-5.1 [facility] HospitalProtein [Mass/Vol]7.9 g/dL6.4-8.2FUK Healthcareodium [Moles/Vol]140 mmol/Z176-568ShutjsjeiMarymount HospitalTriglyceride [Mass/Vol]66 mg/dL<=150Mary[facility] HospitalUrea nitrogen [Mass/Vol]16.0 mg/dL7.0-18.0[facility] HospitalUrea nitrogen/Creatinine [Mass ratio]28.6 mg/mgMarymount HospitalLaboratory - Hematology and Cell countsOrdered By: Edwin Mohan on 09-05-9326Rviqioyn granulocytes/100 WBC (Bld)0.1 %0.0-0.5FMercy Health Willard HospitalLeukocytes [#/volume] corrected for nucleated erythrocytes in Blood by Automated counOrdered By: Edwin Mohan on 25-06-3539HPP corrected for nucl RBC Auto (Bld) [#/Vol]7.3 10 3/uL4.0-11.0[facility] Lymphocytes Auto (Bld) [#/Vol]Ordered By: Edwin Mohan on 65-67-6015Psswnuysvbi (Bld) [#/Vol]2.1 10 3/uL1.2-3.8[facility] HospitalLymphocytes/100 WBC Auto (Bld)Ordered By: Edwin Mohan on 00-75-0726Ujqsvukhdwb/100 WBC (Bld) 29.0 %20.5-60.0Mary[facility] HospitalMCH Auto (RBC) [Entitic mass] Ordered By: Edwin Mohan on 44-21-7023WTN (RBC) [Entitic mass]29.8 pg26.7-34.0 [facility] HospitalMCHC Auto (RBC) [Mass/Vol]Ordered By: Edwin Mohan on 09-69-2254BLOH (RBC) [Mass/Vol]32.2 g/dL29.9-35.2FMercy Health Willard HospitalMCV Auto (RBC) [Entitic vol]Ordered By: Edwin Mohan on 32-34-4606CQP (RBC) [Entitic vol]92.8 fL81.0-99.0[facility] HospitalMicroalbumin [Mass/volume] in UrineOrdered By: Edwin Mohan on 04-05-2025 Albumin DL <= 20 mg/L (U) [Mass/Vol]mg/dL<=30.0[facility] Monocytes Auto (Bld) [#/Vol]Ordered By: Edwin Mohan on 02-80-3013Dxvxuaovu (Bld) [#/Vol]0.5 10 3/uL0.3-0.8[facility] HospitalMonocytes/100 WBC Auto (Bld)Ordered By: Edwin Mohan on 53-46-3461Gexrayspa/100 WBC (Bld)6.9 %1.7-12.0[facility] HospitalNeutrophils Auto (Bld) [#/Vol]Ordered By: Edwin Mohan on 19-12-5889Okrviovswod (Bld) [#/Vol]4.2 10 3/uL1.4-6.5 [facility] HospitalNeutrophils/100 WBC Auto (Bld)Ordered By: Edwin Mohan on 43-68-7274Slamncduhxo/100 WBC (Bld)58.0 %43.0-75.0[facility] HospitalNo Panel InformationOrdered By: Edwin Mohan on 45-23-9866Lqcmo Random Ionytomzyr816.09 mg/dL20.00-300.00Mary[facility] HospitalEosinophils # (Auto)0.4 10 3/uL0.0-0.7FMercy Health Willard HospitalImmature Granulocyte # (Auto)0.01 10 3/uL0.00-0.03Mary[facility] HospitalPlatelet mean volume Auto (Bld) [Entitic vol]Ordered By: Edwin Mohan on 23-45-6536Hcthbgbg mean volume (Bld) [Entitic vol]9.9 fL9.5-13.5 [facility] HospitalPlatelets Auto (Bld) [#/Vol]Ordered By: Edwin Mohan on 21-98-3082Ojqoqawhs (Bld) [#/Vol]341 10 3/iX232-837LfoykivefMarymount HospitalRBC Auto (Bld) [#/Vol]Ordered By: Edwin Mohan on 24-64-5744TIZ (Bld) [#/Vol]4.59 10 6/uL4.20-5.40[facility] - Southeast Ohioerum or plasma albumin/globulin mass ratioOrdered By: Edwin Mohan on 54-06-8245Rzhuygm/Globulin [Mass ratio]0.8 {ratio}[facility] - Southeast Ohioerum or plasma anion gap determinationOrdered By: Edwin Mohan on 45-93-9443Cefip gap [Moles/Vol]11.8 mmol/LFUK Healthcareerum or plasma total cholesterol/high density lipoprotein (HDL) cholesterol mass rat Ordered By: Edwin Mohan on 10-70-6448Vigvkrevesp.total/Cholesterol in HDL [Mass ratio]2.4 {ratio}[facility] HospitalComment on above:3.3 - 4.4 LOW RISK4.4 - 7.1 AVERAGE RISK7.1 - 11.0 MODERATE RISK>11.0 HIGH RISKC Urine on 40-22-8555Iujjgvpf identified Cx Nom (U)Microbiology PROCEDURE: Urine Culture [...] Locations R1: This test was performed at: [facility], [address] [place] [address], [id number] , , LjetxtZfvwgmSelect Medical Specialty Hospital - Cleveland-FairhillComment on above:Performed By: #### [id number] #### [facility] [address] [place] [id number] Urineon 10-21-3215Jsmtxhac identified Cx Nom (U)Microbiology PROCEDURE: Urine Culture [...] Locations R1: This test was performed at: [facility], [address] [place] [address], [facility] , , AjgpvmMpohkuSelect Medical Specialty Hospital - Cleveland-FairhillComment on above:Performed By: #### [id number] #### [facility] [address] [place], [place] [address]Ambulatory Visit Summaryon 82-87-9128Zmahqmtyib Visit Summary Ambulatory Visit Summary CHELLY TILLMAN :1945 Visit Date:03/13/2025 Ambulatory Visit Instructions Your Diagnosis Mixed incontinence Stricture of ureter Your Care Team Attending Physician - Rere [...] Genevieve Jernigan PA-C Where: [facility] [address] [place] [address]- Medications What How Much When Why Instructions [...] signed up for this yet, please contact Health Information Management at [phone] to get signed up today. Language Information Language assistance services are available as needed. [facility]-FairhillAmbulatory Visit Summaryon 25-60-5150Itnfxfweti Visit SummaryAmbulatory Visit Summary CHELLY TILLMAN :1945 [...] Genevieve Jernigan PA-C Where: [facility] [address] [address]- Medications What How Much When Why Instructions [...] signed up for this yet, please contact [employer] at [phone] to get signed up today. Language Information Language assistance services are available as needed. [facility]-FairhillUrinalysis with Microon 48-14-8210Gphel (U)see commentInvalid Interpretation [facility] SouthComment on above:Result Comment: Quantity of urine insufficient for urinalysis. Urine culture has been set up. Will credit urinalysis. Microscopic readings are only performed on those samples that meet specific criteria set forth by [facility].Performed By: #### [id number] #### [facility] [address], [place] [address]Rytoaue Ql (U)see commentInvalid Interpretation [facility] SouthComment on above:Performed By: #### [id number] #### [facility] [address], [place] [address]LW Bloodsee commentInvalid Interpretation [facility] SouthComment on above:Performed By: #### [id number] #### [facility] [address], [place] [address]OJ Bilisee commentInvalid Interpretation [facility] SouthComment on above:Performed By: #### [id number] #### [facility] [address], [place] [address]IE Claritysee commentInvalid Interpretation [facility] SouthComment on above:Performed By: #### [id number] #### [facility] [address], [place] [address]OQ Glucosesee commentInvalid Interpretation [facility] SouthComment on above:Performed By: #### [id number] #### [facility] [address], [place] [address]XF Leuk Estsee commentInvalid Interpretation [facility] SouthComment on above:Performed By: #### [id number] #### [facility] [address], [place] [address]CC Nitritesee commentInvalid Interpretation [facility] SouthComment on above:Performed By: #### [id number] #### [facility] [address], [place] [address]XH pHsee commentInvalid Interpretation Code5.0-9.0[facility] Health SystemComment on above:Performed By: #### [id number] #### [facility] [address], [place] [address]XK Proteinsee commentInvalid Interpretation [facility] SouthComment on above:Performed By: #### [id number] #### [facility] [address], [place] [address]NX Spec Gravsee commentInvalid Interpretation Code1.005-1.030 [facility] SystemComment on above:Performed By: #### [id number] #### [facility] [address], [place] [address]UM Urobilinogensee commentInvalid Interpretation [facility] SouthComment on above:Performed By: #### [id number] #### [facility] [address], [place] [address]FY Spec DescClean CatchNormalMemorial Health SystemComment on above:Performed By: #### [id number] #### [facility] [address], [place] [address]Ppkrqrh Office/Clinic Noteon 46-94-1670Ieepree Office/Clinic NoteUrology Office/Clinic Note Chief Complaint Discuss [...] dose., # 1 tab(s), Refills(s) 2, Pharmacy: [facility]/pharmacy #[id number], 155, cm, 03/12/25 11:55:00 EDT, Hei... E&M of Est. Patient Moderate 30-39 Min 51962 Urinalysis with Micro Urine Culture Urnls Dip Stick Auto w/o Microscopy POC 25554 2. Atrophic vaginitis (N95.2: Postmenopausal atrophic vaginitis) [...] E&M of Est. Patient Moderate 30-39 Min 96689 3. Mixed incontinence (N39.46: Mixed incontinence) BBS [...] as previously discu (more content not included)... [facility]-FairhillComment on above:Result Comment: Electronically Signed By: Vickey GALAVIZ, Lacey Oscar\.br\Date and Time Signed: 03/12/25 13:12 EDT Laboratory - Chemistry and Chemistry - challengeOrdered By: Edwin Mohan on 18-90-5154Xauzyewhh Ql (U)NegativeMarymount HospitalGlucose (U) [Mass/Vol]NegativeMarymount HospitalKetones Ql (U)Negative [facility] HospitalpH (U)6.5 [pH][facility] Specific gravity (U) [Rel density]1.000[facility] Urobilinogen (U) [Mass/Vol]0.2 mg/dLMarymount HospitalLaboratory - Specimen informationOrdered By: Edwin Mohan on 41-75-1873Tqchedtmhk (U) cloudyMarymount HospitalColor (U)darkyellowMarymount HospitalLaboratory - UrinalysisOrdered By: Edwin Mohan on 02-28-2025 Leukocyte esterase Test strip Ql (U)++Marymount HospitalNitrite Ql (U)NegativeMarymount HospitalProtein Ql (U)++[facility] HospitalNo Panel InformationOrdered By: Edwin Mohan on 40-20-8243Wfudg Occult Blood+++Marymount HospitalXR elbow RT min 3V*on 59-07-0665OM elbow RT min 3V*[facility] [place] [facility] [place] [address] XRay Report Signed Patient: Chelly Tillman MR#: [id number] : 1945 Acct:[id number] Age/Sex: 79 / F ADM Date: 02/05/25 Loc: [facility] [place] [place] Room: Type: [facility] Attending Dr: Wilfred Orozco DO Copies to: [...] Jr., D.O. 02/05/2025 4:15 PM Dictation Location: [place] [address] Transcribed By: [facility] 02/05/251614 Dictated By: Chencho Hernandez Jr, DO 02/05/251613 Signed By: 02/05/[address] 1615[facility]ide Physician GroupAmbulatory Visit Summaryon 81-43-4215Dqvioiexxi Visit SummaryAmbulatory Visit Summary CHELLY TILLMAN :1945 [...] you for choosing us for your care. [facility]hillUrology Office/Clinic Noteon 88-42-4092Wxisccx Office/Clinic NoteUrology Office/Clinic Note HPI Staff 6 [...] send Gemtesa 75 mg PO daily to [facility] pharmacy to see if medication will be [...] understanding. -Send Gemtesa 75mg PO daily to [facility] pharmacy. -If not covered, consider starting Trospium [...] 80.9, kg, 01/02/25 14:55:00 EDT, Weight Dosing 77412 Measure Post Void residual urine and/or bladder [...] Urnls Dip Stick Auto w/o Microscopy POC 68867 2. Gross hematuria (R31.0: Gross hematuria) Former smoker x41 yrs. No occupational exposure. No fam hx of cancers. Recent hematuria work-up negative: CT AP w con 11/11/23 [facility] - No renal mass, obstruction, or calcification. No bladder wall thickening,lesion, or calculus. Cytol 05/30/24 - negative S/p cysto 07/12/24 - 1+ trabeculations, no bladder tumors, lesions, foreign b (more content not included)...[facility]-FairhillComment on above: Result Comment: Electronically Signed By: Genevieve Jernigan PA-C\briana\Date and Time Signed: 01/02/25 16:02 EDTX-ray reportOrdered By: Chencho Hernandez on 12-11-2024 Study reportJ.[facility]. [facility] [place] [facility] [address] [place] [address] XRay Report Signed Patient: Chelly Tillman MR#: [id number] : 1945 Acct:[id number] Age/Sex: 79 / F ADM Date: 5 Loc: [facility] [place] [place] Room: Type: [facility] Attending Dr: Wilfred Orozco DO Copies to: [...] FRACTURE. Impression dictated by: Chencho Hernandez Jr., D.OVasquez12/11/2024 10:26 PM Dictation Location: [facility]18 Transcribed By: [facility] 12/11/242225 Dictated By: Chencho Hernandez Jr, DO 12/11/242224 Signed By: 12/11/242225 [facility] HospitalXR elbow RT min 3V*on 60-76-5016DJ elbow RT min 3V*[facility] [place] [facility] [place] [address] XRay Report Signed Patient: Chelly Tillman MR#: [id number] : 1945 Acct:[id number] Age/Sex: 79 / F ADM Date: 12/11/24 Loc: [facility] [place] [place] Room: Type: REG CLI Attending Dr: Wilfred [...] FRACTURE. Impression dictated by: Chencho Hernandez Jr., D.OVasquez12/11/2024 10:26 PM Dictation Location: [facility] Transcribed By: [facility] 12/11/242225 Dictated By: Chencho Hernandez Jr, DO 12/11/242224 Signed By: 12/11/242225[facility] Physician GroupX-ray reportOrdered By: Chiara Choi on 69-19-8341Syayp reportJ.W. [facility]BY [facility] [place] [facility] [address] [place] [address] XRay Report Signed Patient: Chelly Tillman MR#: [id number] : 1945 Acct:[id number] Age/Sex: 79 / F ADM Date: 5 Loc: [facility] [place] [place] Room: Type: REG CLI Attending Dr: Wilfred [...] Choi MD 11/06/24 160 Signed By: 11/06/241616 [facility] Work Phone: XR elbow RT min 3V*on 60-54-6412BB elbow RT min 3V* [facility] [place] [facility] [address] [place] [address] XRay Report Signed Patient: Chelly Tillman MR#: [id number] : 1945 Acct:[id number] Age/Sex: 79 / F ADM Date: 11/06/24 Loc: [facility] [place] [place] Room: Type: [facility] Attending Dr: Wilfred Orozco DO Copies to: [...] Chiara Choi MD 11/06/24 160 Signed By: 11/06/24 1617[facility] Physician GroupX-ray reportOrdered By: Cornelio Young on 90-11-7301Rqwpc reportFIRMARIETTA MEMORIAL [facility]PITAL Main [place] [address] [place], [place] [address] XRay Report Signed Patient: Chelly Tillman MR#: [id number] : 1945 Acct:[id number] Age/Sex: 79 / F ADM Date: 5 Loc: ER Room: Type: [facility] ER Attending Dr: Copies to: Roberto Johnson [...] Cornelio Young M.D.11/03/2024 5:08 PM Dictation Location: [facility]20 Transcribed By: [facility] 11/03/241707 Dictated By: Cornelio Young DO 11/03/241705 Signed By: 11/03/24 1708 [facility] HospitalXR elbow RT min 3V*on 25-58-4502VD elbow RT min 3V*[facility] Main [place] [address] XRay Report Signed Patient: Chelly Tillman MR#: [id number] : 1945 Acct:[id number] Age/Sex: 79 / F ADM Date: 11/03/24 Loc: ER Room: Type: [facility] ER Attending Dr: Copies to: Roberto Johnson [...] Cornelio Young M.D.11/03/2024 5:08 PM Dictation Location: [facility]--20 Transcribed By: [facility] 11/03/241707 Dictated By: Cornelio Young DO 11/03/241705 Signed By: 11/03/241707[facility] Riverside Physician GroupEstimated glomerular filtration rate (GFR) non- Americanon 70-74-9517CTW/1.73 sq M.predicted among non- blacks MDRD (S/P/Bld) [Vol rate/Area]Estimated glomerular filtration rate (GFR) non->=60 mL/min/1.73m 2FMercy Health Willard HospitalGlobulin Calc (S) [Mass/Vol]on 01-84-3520Hyibiqmj (S) [Mass/Vol]Serum globulin measurement by calculation (mass/volume)[facility] - Chemistry and Chemistry - challengeon 33-09-9787Snlpowj [Mass/Vol] 3.5 g/dL3.4-5.0Mary[facility] HospitalALP [Catalytic activity/Vol]107 U/V19-555EmshaykxqMarymount HospitalALT [Catalytic activity/Vol]17 U/L 14-59Marymount HospitalAST [Catalytic activity/Vol]16 U/L15-37 [facility] HospitalBilirubin [Mass/Vol]0.6 mg/dL0.2-1.0Mary[facility] HospitalCalcium [Mass/Vol]9.5 mg/dL8.5-10.1FMercy Health Willard HospitalChloride [Moles/Vol]105 mmol/V91-727OesiiqfdzMarymount HospitalCO2 [Moles/Vol]28.8 mmol/L21.0-32.0[facility] Creatinine [Mass/Vol]0.71 mg/dL0.55-1.02[facility] GFR/1.73 sq M.predicted MDRD (S/P/Bld) [Vol rate/Area]mL/min/{1.73_m2}>=60 mL/min/1.73m 2FMercy Health Willard HospitalGlucose [Mass/Vol]106 mg/oL08-600 [facility] HospitalPotassium [Moles/Vol]4.4 mmol/L3.5-5.1FMercy Health Willard HospitalProtein [Mass/Vol]7.4 g/dL6.4-8.2FUK Healthcareodium [Moles/Vol]141 mmol/A222-056YpctrelhpMarymount HospitalUrea nitrogen [Mass/Vol]13.0 mg/dL7.0-18.0Marymount HospitalUrea nitrogen/Creatinine [Mass ratio]18.3 mg/mgSelect Medical Specialty Hospital - Southeast Ohioerum or plasma albumin/globulin mass ratioon 47-29-6065Nolzasn/Globulin [Mass ratio]Serum or plasma albumin/globulin mass ratioSelect Medical Specialty Hospital - Southeast Ohioerum or plasma anion gap determinationon 67-69-3424Iwscw gap [Moles/Vol]Serum or plasma anion gap determinationMarymount HospitalAmbulatory Visit Summaryon 49-44-2479Czjvmbnzuf Visit SummaryAmbulatory Visit Summary CHELLY TILLMAN :1945 Visit Date:05/30/2024 Ambulatory Visit Instructions Your Diagnosis Gross hematuria Mixed incontinence Your Care Team Attending Physician - Evgeny CHO, Kari Bob Primary Care Physician - FELECIA ALBERTO EDWIN This Is Your Medications List estradiol topical [...] Schedule the Following Appointments Follow Up with Egveny CHO, Kari Bob, URL, URO When: Comments: sched cysto Where: [address] [place] [address] [phone] Medications What How Much When Instructions New estradiol topical (Estrace 0.1 mg/ g Cream) See instructions Refills: 1 Apply a pea-sized amount to the vagina/ urethra 3x/ week for a month, then 2x/ week for maintenance Pickup at [facility]/pharmacy #[id number] New vibegron (Gemtesa 75 mg oral tablet) 1 Tablets By Mouth Every day Refills: 11 [id number] Unchanged albuterol (albuterol HFA 90 mcg/ [...] physician if questions or concerns Pharmacy Information [facility]/pharmacy #[id number]: [address], [place] [phone] Allergies No active allergies Problems Ongoing - [...] many urinary cancers. Jaleesao (more content not included)...[facility]hillUrology Office/Clinic Noteon 83-00-2550Emvgkxo Office/Clinic NoteUrology Office/Clinic Note Chief Complaint Patient in [facility] due to hematuria HPI Staff 79 [...] +/- biofeedback, and tri (more content not included)...[facility]-FairhillComment on above:Result Comment: Electronically Signed By: Kari Pepper MD\.br\Date and Time Signed: 05/30/24 10:40EDT\.br\Electronically Co-Signed By: Manuela Emanuel.janie\Date and Time Co-Signed: 05/30/24 09:17 EDTMG MAMM SCREEN 3D JESSENIA CADon 68-25-0322UH MAMM SCREEN 3D JESSENIA CADPatient: CHELLY TILLMAN Exam Date: 05/25/2022 : 1945 Gender:F Ordering : DR EDWIN MOHAN D.O. Admission #: [id number] Family : Order #: [id number] CLICK HERE TO VIEW EXAM RADIOLOGY REPORT [...] Treatments None Family Cancers None LOCATION: [facility] BREAST COMPOSITION: Scattered areas fibroglandular density. FINDINGS: [...] by: Bharti Paige MD on 05/26/2022 at 07:48NormalThUniversity Hospitals Lake West [facility] Center AUTO DIFFon 65-68-3816XVXC #0.0 103/ulNormal0.0-0.1[facility] Medical CenterComment on above:Performed By: #### CBC #### [facility] [address] [place] [address] [address] Eduardo SeguraBasophils/100 WBC (Bld)0.3 %Normal0.2-2.0The [facility] Comment on above:Performed By: #### CBC #### [facility] [address] [place] [address] [address] Eduardo Grady #0.3 103/ulNormal0.0-0.7The [facility] TroyComment on above: Performed By: #### CBC #### [facility] [address] [place] [address] [address] Eduardo Arguetaosinophils/100 WBC (Bld)4.3 %Normal0.9-7.0The [facility] Comment on above:Performed By: #### CBC #### [facility] [address] [place] [address] Dr. Eduardo Arguetarythrocyte distribution width (RBC) [Ratio]13.7 %Qtmfsa05.0-15.0 [facility] Medical CenterComment on above:Performed By: #### CBC #### [facility] [address] [place] [address] Dr. Eduardo SeguraHematocrit (Bld) [Volume fraction]42.6 %Wdgpuf53.0-48.0The [facility] TroyComment on above:Performed By: #### CBC #### [facility] [address] [place] [address] Dr. Eduardo SeguraHemoglobin (Bld) [Mass/Vol]14.1 g/qHBocrtg76.0-16.0The [facility] TroyComment on above:Performed By: #### CBC #### [facility] [address] [place] [address] Dr. Eduardo Tuttle #0.02 10e3/ulNormal0.00-0.03The [facility] TroyComment on above:Performed By: #### CBC #### [facility] [address] [place] [address] Dr. Eduardo Tuttle %0.3 %Normal0.0-0.5The [facility] TroyComment on above: Performed By: #### CBC #### [facility] [address] [place] [address] Dr. Eduardo Grajeda #2.3 103/ulNormal1.2-3.8The [facility] TroyComment on above:Performed By: #### CBC #### [facility] [address] [place] [address] Dr. Eduardo Mcmahanhocytes/100 WBC (Bld)31.9 %Avyelm56.5-60.0The [facility] TroyComment on above:Performed By: #### CBC #### [facility] [address] [place] [address] Dr. Yilan ChangMANUAL DIFF REQNONormalThe [facility] TroyComment on above: Performed By: #### CBC #### [facility] [address] [place] [address] Dr. Eduardo Celaya (RBC) [Entitic mass]31.1 aoYmnytb51.7-34.0The [facility] TroyComment on above:Performed By: #### CBC #### [facility] [address] [place] [address] Dr. Eduardo Celaya (RBC) [Mass/Vol]33.1 g/qSCvfffb75.9-35.2The [facility]resham HospitalComment on above:Performed By: #### CBC #### [facility] [address] [place] [address] Dr. Eduardo Celaya (RBC) [Entitic vol]94.0 pARcvljs86.0-99.0The [facility] TroyComment on above:Performed By: #### CBC #### [facility] [address] [place] [address] Dr. Eduardo Loco #0.6 103/ulNormal0.3-0.8The [facility] TroyComment on above:Performed By: #### CBC #### [facility] [address] [place] [address] Dr. Eduardo Santizoocytes/100 WBC (Bld)7.7 %Normal1.7-12.0The [facility] Comment on above:Performed By: #### CBC #### [facility] [address] [place] [address] Dr. Eduardo Jeffery #4.0 103/ulNormal1.4-6.5The [facility] TroyComment on above:Performed By: #### CBC #### [facility] [address] [place] [address] Dr. Eduardo Dimasutrophils/100 WBC (Bld)55.5 %Gfkkpx47.0-75.0The [facility] TroyComment on above:Performed By: #### CBC #### [facility] [address] [place] [address] Dr. Yilan ChangPlatelet mean volume (Bld) [Entitic vol]10.2 fLNormal9.5-13.5The [facility] TroyComment on above:Performed By: #### CBC #### [facility] [address] [place] [address] Dr. Eduardo SeguraPLT286 103/meKsujrb286-884Obj [facility]Com[facility] on above: Performed By: #### CBC #### [facility] [address] [place] [address] Dr. Eduardo SeguraRBC4.53 106/ulNormal4.20-5.40The [facility] TroyComment on above:Performed By: #### CBC #### [facility] [address] [place] [address] Dr. Eduardo SeguraWBC7.2 103/ulNormal4.0-11.0The [facility] TroyComment on above: Performed By: #### CBC #### [facility] [address] [place] [address] Dr. Eduardo SeguraGLYCOHEMOGLOBIN A1Con 41-72-4057GNL RECOMMENDATIONSEE BELOWFirelands Regional Medical CenterComascension st. john hospital on above:Result Comment: ADA RECOMMENDED LIMIT 4.0 - 6.0 ADA THERAPEUTIC TARGET < 7.0 ACTION SUGGESTED > 7.0Performed By: #### A1C #### [facility] [address] [place] [address] Dr. Eduardo SeguraGlucose [Mass/Vol]134 mg/dLNoSt. Charles HospitalComascension st. john hospital on above:Performed By: #### A1C #### [facility] [address] [place] [address] Dr. Eduardo SeguraHbA1c (Bld) [Mass fraction]6.3 %Critically high4.5-6.2[facility] CenterComascension st. john hospital on above:Performed By: #### A1C #### [facility] [address] [place] [address] Dr. Eduardo SeguraLIPID PROFILEon 65-09-8335JLBD-HDL RATIO NORMSEE BELOWMagruder HospitalComment on above:Result Comment: 3.3 - 4.4 LOW RISK 4.4 - 7.1 AVERAGE RISK 7.1 - 11.0 MODERATE RISK >11.0 HIGH RISKPerformed By: #### BMP, LIPID, ALT #### [facility] [address] [address] [address] Eduardo SeguraCholesterol [Mass/Vol]154 mg/dLNormal<=200The [facility] Comment on above:Performed By: #### BMP, LIPID, ALT #### [facility] [address] [address] [address] Eduardo SeguraCholesterol in HDL [Mass/Vol]60 mg/dIUoijsc46-08Bim [facility] TroyComment on above:Performed By: #### BMP, LIPID, ALT #### [facility] [address] [place] [address] Dr. Eduardo SeguraCholesterol in LDL [Mass/Vol]75.4 mg/dLNoSt. Charles HospitalComment on above:Performed By: #### BMP, LIPID, ALT #### [facility] [address] [place] [address] Dr. Eduardo Galarzaesterlarisa.total/Cholesterol in HDL [Mass ratio]2.6 {ratio} NormalThe [facility] TroyComment on above:Performed By: #### BMP, LIPID, ALT #### [facility] [address] [place] [address] Dr. Eduardo SeguraHDL NORMAL> or = 60 mg/dl - LOW CARDIOVASCULAR RISK <40 mg/dl - HIGH CARDIOVASCULAR RISKMagruder HospitalComment on above:Performed By: #### BMP, LIPID, ALT #### [facility] [address] [place] [address] Dr. Eduardo SeguraLDL CALC NORMALSEE BELOWMagruder HospitalComment on above:Result Comment: <100 mg/dl OPTIMAL 100 - 129 mg/dl NEAR OR ABOVE OPTIMAL 130 - 159 mg/dl BORDERLINE HIGH 160 - 189 mg/dl HIGH >190 mg/dl VERY HIGH Performed By: #### BMP, LIPID, ALT #### [facility] [address] [place] [address] Dr. Eduardo SeguraTriglyceride [Mass/Vol]93 mg/dLNormal<=150The [facility] Comment on above:Performed By: #### BMP, LIPID, ALT #### [facility] [address] [address] [address] Eduardo SeguraVLDL CALC18.6 mg/dLNormalThe [facility] TroyComment on above: Performed By: #### BMP, LIPID, ALT #### [facility] [address] [address] [address] Eduardo SeguraPROF CHEM 8 (BAS METB)on 25-72-1763Ujyps gap [Moles/Vol]15.0 mmol/LNormalMetrohealth Cleveland Heights Medical CenterComment on above:Performed By: #### BMP, LIPID, ALT #### [facility] [address] [place] [address] Dr. Eduardo SeguraCalcium [Mass/Vol]9.8 mg/dLNormal8.5-10.1[facility] Comment on above:Performed By: #### BMP, LIPID, ALT #### [facility] [address] [address] [address] Eduardo SeguraChloride [Moles/Vol]105 mmol/IViokcf76-856QcnMetrohealth [facility] Heights Medical Center Comment on above:Performed By: #### BMP, LIPID, ALT #### [facility] [address] [place] [address] Dr. Eduardo SeguraCO2 [Moles/Vol]25.2 mmol/RPelpor97.0-32.0[facility] Comment on above:Performed By: #### BMP, LIPID, ALT #### [facility] [address] [place] [address] Dr. Eduardo SeguraCreatinine [Mass/Vol]0.77 mg/dLNormal0.55-1.02The [facility] TroyComment on above:Performed By: #### BMP, LIPID, ALT #### [facility] [address] [place] [address] Dr. Eduardo ArguetaGFR-AF STATELESS>60Normal>=60The [facility] TroyComment on above:Performed By: #### BMP, LIPID, ALT #### [facility] [address] [address] [address] Eduardo ArguetaGFR-NON AF STATELESS>60Normal>=60The [facility] TroyComment on above:Performed By: #### BMP, LIPID, ALT #### [facility] [address] [address] [address] Eduardo SeguraGlucose [Mass/Vol]142 mg/dLCritically zkqd80-726Lru [facility] TroyComment on above:Performed By: #### BMP, LIPID, ALT #### [facility] [address] [address] [address] Eduardo SeguraPotassium [Moles/Vol]4.2 mmol/LNormal3.5-5.1The [facility] Comment on above:Performed By: #### BMP, LIPID, ALT #### [facility] [address] [address] [address] Eduardo Pearsondium [Moles/Vol]141 mmol/CUdxziw621-786Dbt [facility] Comment on above:Performed By: #### BMP, LIPID, ALT #### [facility] [address] [address] [address] Eduardo SeguraUrea nitrogen [Mass/Vol]17.0 mg/dLNormal7.0-18.0The [facility] TroyComment on above:Performed By: #### BMP, LIPID, ALT #### [facility] [address] [address] [address] Eduardo Jiménez nitrogen/Creatinine [Mass ratio]22.1 mg/mgNormalThe [facility] TroyComment on above:Performed By: #### BMP, LIPID, ALT #### [facility] [address] [address] [address] Eduardo Carreon 97-43-1868TPK [Catalytic activity/Vol]20 U/HQkjzua97-56Stc [facility] TroyComment on above:Performed By: #### BMP, LIPID, ALT #### [facility] [address] [address] [address] Eduardo Segura Vital Signs Date TimeVital SignValuePerforming RknzowzigIdwetrwa27-88-6878 10:19-0500Body wrhtyl442.94 cmBenjamin Ball DO Work Phone: [phone])[address] [place], [place] 1248411-03-2025 10:19-0500 Body mass index (BMI) [Ratio]33.6 kg/p1Typxcdgp Ball DO Work Phone: [phone])[address] [place], [place] 1248411-03-2025 10:19-0500 Body .73 kgBenjamin Ball DO Work Phone: [phone])[address] [place], [place] 1248411-03-2025 10:19-0500 Diastolic blood rxweirzn39 mm[Hg]Edwin Ball DO Work Phone: 1(640)[address] [place], [place] 1248411-03-2025 10:19-0500 Heart rate60 /minBenjamin Ball DO Work Phone: [address] [place], [place] 1248411-03-2025 10:19-0500 Respiratory rate12 /minBenjamin Ball DO Work Phone: 1(121)[address] [place], [place] 1248411-03-2025 10:19-0500 Systolic blood sokobjxa002 mm[Hg]Edwin Ball DO Work Phone: 1(549)[address] [place], [place] 1248410-17-2025 13:38-0400 Body vfingi581.94 cmBenjamin Ball DO Work Phone: 1(445)[address] [place], [place] 1248410-17-2025 13:38-0400 Body mass index (BMI) [Ratio]33.7 kg/a4Eykrvcuy Ball DO Work Phone: 1(816)[address] [place], [place] 1248410-17-2025 13:38-0400 Body qkoblj94.85 kgBenjamin Ball DO Work Phone: 1(470)[address] [place], [place] 1248410-17-2025 13:38-0400 Diastolic blood xlgobriu09 mm[Hg]Edwin Ball DO Work Phone: 1(248)[address] [place], [place] 1248410-17-2025 13:38-0400 Heart rate56 /minBenjamin Ball DO Work Phone: 1(419)[address] [place], [place] 1248410-17-2025 13:38-0400 Respiratory rate12 /minBenjamin Ball DO Work Phone: [phone])[address] [place], [place] 1248410-17-2025 13:38-0400 Systolic blood eodzugsm025 mm[Hg]Edwin Ball DO Work Phone: [phone])[address] [place], [place] 1248409-19-2025 14:26-0400 Body qbomfb882.94 cmBenjamin Ball DO Work Phone: 1(419)[address] [place], [place] 1248409-19-2025 14:26-0400 Body mass index (BMI) [Ratio]34.2 kg/m2Dabwlwqn Ball DO Work Phone: [phone])[address] [place], [place] 1248409-19-2025 14:26-0400 Body pzkejl48.1 kgBenjamin Ball DO Work Phone: [phone])[address] [place], [place] 1248409-19-2025 14:26-0400 Diastolic blood nwvhrfuo54 mm[Hg]Edwin Ball DO Work Phone: 1(419)[address] [place], [place] 1248409-19-2025 14:26-0400 Heart rate60 /minBenjamin Ball DO Work Phone: 1(360)[address] [place], [place] 1248409-19-2025 14:26-0400 Respiratory rate12 /minBenjamin Ball DO Work Phone: 1(476)[address] [place], [place] 1248409-19-2025 14:26-0400 Systolic blood mwiqiipi543 mm[Hg]Edwin Ball DO Work Phone: 1(419)[address] [place], [place] 1248409-16-2025 15:12-0400 Body hcsusx853.94 cmBenjamin Ball DO Work Phone: 1(419)[address] [place], [place] 1248409-16-2025 15:12-0400 Body mass index (BMI) [Ratio]34.2 kg/r5Tturftvb Ball DO Work Phone: 1(419)[address] [place], [place] 1248409-16-2025 15:12-0400 Body ywclmw90.1 kgBenjamin Ball DO Work Phone: [phone] [place], [place] 6175909-16-2025 15:12-0400 Diastolic blood pttiqhfp450 mm[Hg]Edwin Ball DO Work Phone: 1(252)[address] [place], [place] 1248409-16-2025 15:12-0400 Heart rate60 /minBenjamin Ball DO Work Phone: 1419)[address] [place], [place] 1248409-16-2025 15:12-0400 Respiratory rate12 /minBenjamin Ball DO Work Phone: [phone])[address] [place], [place] 1248409-16-2025 15:12-0400 Systolic blood nbgfmgop979 mm[Hg]Edwin Ball DO Work Phone: 1(436)[address] [place], [place] 1248409-02-2025 13:44-0400 Body .94 cmBenjamin Ball DO Work Phone: 1(927)[address] [place], [place] 1248409-02-2025 13:44-0400 Body mass index (BMI) [Ratio]34.2 kg/r8Jfoenamo Ball DO Work Phone: 1(123)[address] [place], [place] 1248409-02-2025 13:44-0400 Body qeryxf19.1 kgBenjamin Ball DO Work Phone: [phone])13 [address] [place], [place] 1248409-02-2025 13:44-0400 Diastolic blood iiltnxrq35 mm[Hg]Edwin Ball DO Work Phone: 1(893)[address] [place], [place] 1248409-02-2025 13:44-0400 Heart rate50 /minBenjamin Ball DO Work Phone: 1(091)[address] [place], [place] 1248409-02-2025 13:44-0400 Respiratory rate12 /minBenjamin Ball DO Work Phone: 1(866)[address] [place], [place] 1248409-02-2025 13:44-0400 Systolic blood mm[Hg]Edwin Ball DO Work Phone: 1(798)[address] [place], [place] 1248406-19-2025 09:53-0400 Body zjxeyw998.94 cmBenjamin Ball DO Work Phone: 1(295)[address] [place], [place] 1248406-19-2025 09:53-0400 Body mass index (BMI) [Ratio]34.2 kg/r6Fcpxhrnu Ball DO Work Phone: 1(378)[address] [place], [place] 1248406-19-2025 09:53-0400 Body ycrvxv99.15 kgBenjamin Ball DO Work Phone: 1419)[address] [place], [place] 1248406-19-2025 09:53-0400 Diastolic blood mm[Hg]Edwin Ball DO Work Phone: 1(419)[address] [place], [place] 1248406-19-2025 09:53-0400 Heart rate59 /minBenjamin Ball DO Work Phone: 1419)[address] [place], [place] 1248406-19-2025 09:53-0400 Respiratory rate12 /minBenjamin Ball DO Work Phone: 1(167)[address] [place], [place] 1248406-19-2025 09:53-0400 Systolic blood fncbapbb965 mm[Hg]Edwin Ball DO Work Phone: 1(261)[address] [place], [place] 1248406-09-2025 14:41-0400 Body vdajhq254.94 cmBenjamin Ball DO Work Phone: 1(627)[address] [place], [place] 1248406-09-2025 14:41-0400 Body mass index (BMI) [Ratio]34.8 kg/n1Cbqrybzs Ball DO Work Phone: 1(177)[address] [place], [place] 1248406-09-2025 14:41-0400 Body .63 kgBenjamin Ball DO Work Phone: 1(887)[address] [place], [place] 1248406-09-2025 14:41-0400 Diastolic blood igpjwxfh19 mm[Hg]Edwin Ball DO Work Phone: 1(151)[address] [place], [place] 1248406-09-2025 14:41-0400 Heart rate69 /minBenjamin Ball DO Work Phone: 1(818)059-[address] [place], [place] 6175906-09-2025 14:41-0400 Respiratory rate12 /minBenjamin Ball DO Work Phone: [facility]06-09-2025 14:41-0400 Systolic blood ktxnrhta865 mm[Hg]Edwin Ball DO Work Phone: [facility]2025 14:40-0400 Blood Pressure LocationLauren Rere [facility]2025 14:40-0400Body vfgntxoawbl17.16 [degF]Genevieve Jernigan [facility]2025 14:40-0400Diastolic blood ynhwgjas23 mm[Hg]Genevieve Jernigan [facility]2025 14:40-0400Heart rate54 /minLauren Rere [facility]2025 14:40-0400Respiratory rate18 /minLauren Rere [facility]2025 14:40-0400Systolic blood gximqiwc348 mm[Hg]Genevieve Jernigan [facility]03-18-2025 12:30-0400Body okhnnq817.94 cmBenjamin Ball DO Work Phone: [facility]03-18-2025 12:30-0400 Body mass index (BMI) [Ratio]35.5 kg/n5Gbyhsrlv Ball DO Work Phone: [facility]03-18-2025 12:30-0400 Body dhfnsu07.27 kgBenjamin Ball DO Work Phone: [facility]03-17-2025 14:08-0400 Body gsfoaj418.94 cmBenjamin Ball DO Work Phone: 1(419)483-[address] [place], [place] 6175903-17-2025 14:08-0400 Body mass index (BMI) [Ratio]35.5 kg/b5Bxecdrwm Ball DO Work Phone: 1(163)951-[address] [place], [place] 6175903-17-2025 14:08-0400 Body cjepqh57.27 kgBenjamin Ball DO Work Phone: 1(098)[address] [place], [place] 1248403-17-2025 14:08-0400 Diastolic blood vzojmavc06 mm[Hg]Edwin Ball DO Work Phone: 1(495)[address]03-17-2025 14:08-0400 Heart rate56 /minBenjamin Ball DO Work Phone: 1(672)[address] [place], [place] 1248403-17-2025 14:08-0400 Respiratory rate12 /minBenjamin Ball DO Work Phone: 1(944)[address] [place], [place] 1248403-17-2025 14:08-0400 SaO2% (BldA) [Mass fraction]96 %Edwin Ball DO Work Phone: 1(215)[address] [place], [place] 1248403-17-2025 14:08-0400 Systolic blood bwjywocb279 mm[Hg]Edwin Ball DO Work Phone: 1(677)[address] [place], [place] 1248403-15-2025 17:50-0400 Diastolic blood tjpueavk38 mm[Hg]Edwin Ball DO Work Phone: 1(497)[address] [place], [place] 1248403-15-2025 17:50-0400 Systolic blood uqnddfer070 mm[Hg]Edwin Ball DO Work Phone: 1(370)[address] [place], [place] 1248403-15-2025 16:40-0400 Body nxbahb212.94 cmBenjamin Ball DO Work Phone: 1(002)[address] [place], [place] 1248403-15-2025 16:40-0400 Body jkqhxrgoewd72.6 [degF]Edwin Ball DO Work Phone: 1(968)[address] [place], [place] 1248403-15-2025 16:40-0400 Body wzkvyt30 kgBenjamin Ball DO Work Phone: 1(419)[address] [place], [place] 1248403-15-2025 16:40-0400 Diastolic blood wyeimftb68 mm[Hg]Edwin Ball DO Work Phone: 1(419)[address] [place], [place] 1248403-15-2025 16:40-0400 Heart rate57 /minBenjamin Ball DO Work Phone: 1(419)[address] [place], [place] 1248403-15-2025 16:40-0400 Respiratory rate20 /minBenjamin Ball DO Work Phone: 1(419)[address] [place], [place] 1248403-15-2025 16:40-0400 SaO2% (BldA) [Mass fraction]93 %Edwin Ball DO Work Phone: 1(419)[address] [place], [place] 1248403-15-2025 16:40-0400 Systolic blood nvsbzvza339 mm[Hg]Edwin Ball DO Work Phone: 1(419)[address] [place], [place] 1248412-23-2024 10:32-0500 Body .1 cmBenjamin Ball DO Work Phone: 1(419)[address] [place], [place] 1248412-23-2024 10:32-0500 Body mass index (BMI) [Ratio]31.6 kg/b9Tztjoitd Ball DO Work Phone: 1(419)[address] [place], [place] 1248412-23-2024 10:32-0500 Body .18 kgBenjamin Ball DO Work Phone: 1(419)[address] [place], [place] 1248412-23-2024 10:32-0500 Diastolic blood fplupkvu02 mm[Hg]Edwin Ball DO Work Phone: 1(419)[address] [place], [place] 1248412-23-2024 10:32-0500 Heart rate55 /minBenjamin Ball DO Work Phone: 1(419)[address] [place], [place] 1248412-23-2024 10:32-0500 Respiratory rate12 /minBenjamin Ball DO Work Phone: 1(419)[address] [place], [place] 1248412-23-2024 10:32-0500 Systolic blood zxtvmrxo783 mm[Hg]Edwin Ball DO Work Phone: 1(419)[address] [place], [place] 1248412-19-2023 15:00-0500 Body ujcqqi204.1 cmBenjamin Ball Other [employer] Other [id number] 15:00-0500Body mass index (BMI) [Ratio] 32.88 kg/t7Cyptwtax Ball Other [employer] Other 12-19-2023 15:00-0500Body ltebth47.63 kgBenjamin Ball Other [employer] Other 12-19-2023 15:00-0500Diastolic blood xnsrigwq59 mm[Hg] Edwin Ball Other [employer] Other 12-19-2023 15:00-0500Respiratory rate12 /minBenjamin Ball Other [employer] Other 12-19-2023 15:00-0500Systolic blood gpcvsnom927 mm[Hg] Edwin Ball Other [employer] Other 10-18-2023 14:15-0400Body .1 cmBenjamin Ball Other [employer] Other 10-18-2023 14:15-0400Body mass index (BMI) [Ratio] 33.71 kg/j5Mnhzeuzi Ball Other [employer] Other 10-18-2023 14:15-0400Body mshayw95.9 kgBenjamin Ball Other [employer] Other 10-18-2023 14:15-0400Diastolic blood azkifbne63 mm[Hg] Edwin Ball Other [employer] Other 10-18-2023 14:15-0400Respiratory rate12 /minBenjamin Ball Other [employer] Other 10-18-2023 14:15-0400Systolic blood llbjylkc640 mm[Hg] Edwin Ball Other [employer] Other 10-13-2023 11:30-0400Body qvioyc739.1 cmBenjamin Ball Other [employer] Other 10-13-2023 11:30-0400Body mass index (BMI) [Ratio] 33.71 kg/l1Uhdqyrqp Ball Other [employer] Other 10-13-2023 11:30-0400Body hlubcf97.9 kgBenjamin Ball Other [employer] Other 10-13-2023 11:30-0400Diastolic blood mm[Hg] Edwin Ball Other [employer] Other 10-13-2023 11:30-0400Respiratory rate12 /minBenjamin Ball Other [employer] Other 10-13-2023 11:30-0400Systolic blood njagbzjq620 mm[Hg] Edwin Ball Other [employer] Other 08-22-2023 10:45-0400Body esiyri522.1 cmBenjamin Ball Other [employer] Other 08-22-2023 10:45-0400Body mass index (BMI) [Ratio] 34.61 kg/u3Fzfwwxyb Ball Other [employer] Other 08-22-2023 10:45-0400Body .35 kgBenjamin Ball Other [employer] Other 08-22-2023 10:45-0400Diastolic blood batvumzl15 mm[Hg] Edwin Ball Other [employer] Other 08-22-2023 10:45-0400Respiratory rate20 /minBenjamin Ball Other [employer] Other 08-22-2023 10:45-0400Systolic blood haitbuth521 mm[Hg] Edwin Ball Other [employer] Other 08-08-2023 10:30-0400Body itdikr570.1 cmBenjamin Ball Other [employer] Other 08-08-2023 10:30-0400Body mass index (BMI) [Ratio] 34.48 kg/q5Zlpbagmw Ball Other [employer] Other 08-08-2023 10:30-0400Body imlsav63.99 kgBenjamin Ball Other [employer] Other 08-08-2023 10:30-0400Diastolic blood qzjtohfh99 mm[Hg] Edwin Ball Other [employer] Other 08-08-2023 10:30-0400Respiratory rate12 /minBenjamin Ball Other [employer] Other 08-08-2023 10:30-0400Systolic blood mm[Hg] Edwin Ball Other [employer] Other 04-06-2023 11:30-0400Body jwuxxs365.1 cmBenjamin Ball Other [employer] Other 04-06-2023 11:30-0400Body mass index (BMI) [Ratio] 35.61 kg/p1Vpnmstxb Ball Other [employer] Other 04-06-2023 11:30-0400Body .07 kgBenjamin Ball Other [employer] Other 04-06-2023 11:30-0400Diastolic blood lyfdoyeg18 mm[Hg] Edwin Mohan Other [employer] Other 04-06-2023 11:30-0400Respiratory rate12 /minBenjamin Ball Other [employer] Other 04-06-2023 11:30-0400Systolic blood mm[Hg] Edwin Felecia Other [employer] Other Encounters Encounter DateEncounter TypeCare ProviderFacilityStart: 06-24-2025 End: 60-45-0505ueppwlkpxkDekfunwe Ball DO Work Phone: [facility]Start: 06-24[facility]2025 End: 15-62-8275Flqhqvo encounter procedureBenjamin Ball DO-[facility] Work Phone: Start: 06-07-2025 End: 33-31-4847fxnzbafuhiLeoyzite Ball DO Work Phone: -[facility] ClinicStart: 06-07-2025 End: 42-34-1737Yjaqejf encounter procedureBenjamin Ball DO-[facility] Work Phone: Start: 05-10-2025 End: 53-46-9973smncapzbezUqfqdfmw Ball DO Work Phone: [facility] Work Phone: Start: 05-10-2025 End: 55-17-5144Wypqwnb encounter procedureBenjamin Ball DO-[facility] Work Phone: Start: 05-07-2025 End: 62-05-9874gmifpcachhEnorlzlm Ball DO Work Phone: [facility] Work Phone: Start: 05-07-2025 End: 57-99-4403Qhzjvmm encounter procedureBenjamin Ball DO-[facility] Work Phone: Start: 04-24-2025 End: 83-43-8823eipughjmokWdkdxg TannaFacility:FTMCStart: 04-24-2025 End: 51-03-9435Iwnwwti encounter procedureKari Pepper [facility] start: 04-23-2025 End: 05-93-7212nqjvpvbrwmMxjhczwe Ball DO Work Phone: [facility] Work Phone: Start: 04-23-2025 End: 11-70-1007Zzgoufp encounter procedureBenjamin Ball DO-[facility] Work Phone: Start: 04-10-2025 End: 14-83-3159brmrbyfodoGirdoy TannaFacility:EU [place]vueStart: 04-10-2025 End: 44-63-8846Nnsurlo encounter procedureLasana Jernigan [facility] start: 43-59-9170Utk-patient / Non-visitBenjamin Ball DO-[facility] Work Phone: Start: 03-13-2025 End: 09-37-8491pjvmqsrdkjEwowzz TannaFacility:FTMCStart: 03-13-2025 End: 79-19-5150Vqtwfyk encounter procedureGenevieve Jernigan [facility] [place] start: 03-12-2025 End: 97-37-1265cqemdjtwerBuczuc J GaleaFacility:FTMCStart: 03-12-2025 End: 34-65-6575intinklaliCzrvol J GaleaFacility:EU [place]walkStart: 03-12-2025 End: 68-26-9654Woyssqf encounter procedureLacey Hurd [facility] Start: 02-28-2025 End: 23-81-4525bgzzkziuhtMempdlsn Ball DO Work Phone: [facility] Work Phone: Start: 02-28-2025 End: 22-64-4647Vyrhjon encounter procedureBencharleneanita Mohan DO-[facility] Work Phone: Start: 02-07-2025 End: 06-61-8427Umotfeo encounter procedureBencharlenemin Felecia DO-[facility] Work Phone: Start: 02-05-2025 End: 90-62-9265Vmfaifm encounter Twin Orozco DO-[facility] Work Phone: Start: 02-05-2025 End: 00-05-0638tnpfebcluzBsupjirj BallFacilholzer hospital:[facility] Start: 02-05-2025 End: 71-13-3264Baldmyx encounter procedureWilfred Orozco DO-[facility] Start: 01-28-2025 End: 23-44-2064kufrveqldhGfjpiohi Ball DO Work Phone: [facility] Work Phone: Start: 01-28-2025 End: 82-19-8394Qjitfxw encounter procedureBenjamin Ball DO Work Phone: [facility] Work Phone: Start: 01-02-2025 End: 07-97-5987dbybwsxpzeNjphhs TannaFacility:EU [place]Start: 01-02-2025 End: 27-68-5520Hsdepen encounter procedureLauren Rere [facility] [place] start: 12-11-2024 End: 76-23-0597kcnowvfmspNnqenpjl Ball DO Work Phone: [facility] Work Phone: Start: 12-11-2024 End: 94-65-9982Ewougdd encounter procedureBenjamin Ball DO Work Phone: [facility] Work Phone: Start: 12-11-2024 End: 62-29-2312Ukbucqy encounter procedureBenjamin Ball DO Work Phone: [facility] Start: 12-11-2024 End: 27-16-6869kfyebdgokpGuvwvczb Ball DO Work Phone: [facility] Work Phone: Start: 11-06-2024 End: 68-07-0926diekvztghmGgbaxyoo Ball DO Work Phone: [facility] Work Phone: Start: 11-06-2024 End: 43-55-2933Ekaqoqt encounter procedureBenjamin Ball DO Work Phone: [facility] Work Phone: Start: 11-06-2024 End: 40-13-8900Ulieyku encounter procedureBenjamin Ball DO Work Phone: [facility] Start: 11-06-2024 End: 40-58-4802hsmpybichhKskvvwke Ball DO Work Phone: [facility] Work Phone: Start: 11-05-2024 End: 81-58-8151mokznkxjlnGtzsyytn Ball DO Work Phone: [facility] Work Phone: Start: 11-05-2024 End: 79-56-5415Tmevqgu encounter procedureBenjamin Ball DO Work Phone: [facility] Work Phone: Start: 11-03-2024 End: 79-65-7587Ssslvtxdi department patient visitBenjamin Ball DO Work Phone: [facility]-Emergency Room Work Phone: Start: 63-04-6654Ufg-patient / Non-visitBenjamin Ball DO Work Phone: [facility] Work Phone: Start: 08-13-2024 End: 70-27-3600Hokutae encounter procedureBenjamin Ball DO Work Phone: [facility] Work Phone: Start: 07-12-2024 End: 56-14-6686ouvmznzgiyBvypm M. LueFacility:CD:[id number]: 05-30-2024 End: 18-30-9032Nqa Drop Neetu Pepper [facility] Start: 05-30-2024 End: 10-94-7935hthybgkgxnHlvgv VenuVasquez LueFacility:FTMCStart: 05-30-2024 End: 26-26-4802Nkopoty encounter procedureRosiefabian Pepper [facility] [place] start: 34-57-8926xlxysqxxxgKitkx LueFacility:EU [place] Start: 04-03-2024 End: 74-84-1857yagxlmpkliBKLYGHDR D ZAHLERNot AvailableStart: 01-17-2024 End: 66-81-3912eolzoqjoihPCHJCEAK D ZAHLERNot AvailableStart: 10-14-2023 End: 28-14-7000jgzegxbskvNfignhaj Ball Other [employer] Other Start: 94-32-8558Cessszcsf encounterBenjamin BallFPG [facility] ClinicStart: 09-19-2023 End: 11-35-7290hadvumqaelPIKILBOY D YANCIHLERNot AvailableStart: 08-12-2023 End: 71-34-4694mxdadksciqDfnmvltv Ball Other [employer] Other Start: 76-35-5037Oasdpkske encounterBenjamin BallFPG [facility] ClinicStart: 08-11-2023 End: 70-86-2787zuwcuakkziEmelirdq Ball Other [employer] Other Start: 11-63-0068Kjjzoxsev encounterBenjamin BallFPG [facility] ClinicStart: 08-09-2023 End: 04-46-7913pdhfymbureJnotrnkn Ball Other [employer] Other Start: 50-63-7849Wbzfgm outpatient visit 25 minutes Edwin BallFPG [facility] ClinicStart: 08-04-2023 End: 04-37-5673qnacdbfdrlAvugfzgz Ball Other [employer] Other Start: 08-10-3030Twfmdxxtc encounterBenjamin BallFPG [facility] ClinicStart: 08-02-2023 End: 41-16-2775sdtrrnazfrWDHRHH Moo MARTINEZLatonia AvailableStart: 07-25-2023 End: 44-06-7311ykkjqoimenBbvzisb Vytautas Giedraitis MDFacility:PM Kel Start: 07-19-2023 End: 51-73-0101ekjxqxxznlRjfqeykc Ball Other [employer] Other Start: 70-63-3714Yebpsd outpatient visit 15 minutes Edwin BallFPG [facility] ClinicStart: 06-20-2023 End: 54-20-9661lwdjmhreczWnkjrog Vytautas Giedraitis MDFacility:PM [place] Start: 06-16-2023 End: 16-03-1932ztumdgqlbwFrcmxaxg Ball Other [employer] Other Start: 02-40-0711Qxswahogi encounterBenjamin BallFPG [facility] ClinicStart: 06-15-2023 End: 12-94-8784kbqlewammuGpzymxll Ball Other [employer] Other Start: 03-53-6204Gpewkxuxg encounterBenjamin BallFPG [facility] ClinicStart: 06-13-2023 End: 91-50-7829rjlbrkqlkcExweqpu Vytautas Giedraitis MDFacility:PM [place] Start: 06-09-2023 End: 25-43-0109jcreldwznlEtqcfmjr Ball Other [employer] Other Start: 75-88-6387Widuqeqsf encounterBenjamin BallFPG [facility] ClinicStart: 06-08-2023 End: 05-58-6566knwqrdoomkLhfqggxw Ball Other [employer] Other Start: 49-95-2522Dkeson outpatient visit 15 minutes Edwin BallFPG [facility] ClinicStart: 06-03-2023 End: 59-15-6871axquraptxlFvfhrgsq Ball Other [employer] Other Start: 74-05-5186Jnktse outpatient visit 25 minutes Edwin BallFPG [facility] ClinicStart: 05-25-2023 End: 19-03-3667grmbpcfbczSlodhcjn Ball Other [employer] Other Start: 62-89-9572Gnmmktaqo encounterBenjamin BallFPG [facility] ClinicStart: 05-23-2023 End: 59-82-8733vtoglmnoscCU Edwin Ball Work Phone: [facility] Work Phone: Start: 05-23-2023 End: 08-26-6647Jxkjpsj encounter procedureDO Edwin Ball Work Phone: [facility]-Respiratory Therapy Work Phone: Start: 04-21-2023 End: 41-67-0925nuvbioxilfGlmrnlgu Ball Other [employer] Other Start: 65-02-1669Jfskroeqq encounterBenjamin BallFPG [facility] ClinicStart: 04-20-2023 End: 72-70-6525qwzphseaozUjipeugn Ball Other [employer] Other Start: 70-74-7137Mxfhemlyr encounterBenjamin BallFPG [facility] ClinicStart: 04-18-2023 End: 36-99-8740zhtjmgeyvpVtewshjr Ball Other [employer] Other Start: 94-85-0241Ujksgeowz encounterBenjamin BallFPG [facility] ClinicStart: 04-12-2023 End: 66-51-9981fiivsqaynvYidpjckq Ball Other [employer] Other Start: 83-71-8979Xgqpxa outpatient visit 15 minutes Edwin BallFPG [facility] ClinicStart: 40-93-5270Rkuwyaust encounterBenjamin BallFPG [facility] ClinicStart: 04-07-2023 End: 43-31-3612oytxaqukjqGwtdfokh Ball Other [employer] Other start: 56-53-2045Nyydpwgtq encounterBenjamin BallFPG [facility] ClinicStart: 03-29-2023 End: 52-05-4562vuzbbmzqcuHudiphio Ball Other [employer] Other Start: 41-56-9706Cqlhgl outpatient visit 15 minutes Edwin BallFPG [facility] ClinicStart: 91-74-5733ixgpgosynxXB EDWIN BALL Facility:Y9Foksc: 11-30-2022 End: 99-87-7495pxekjqjmnoBihptghn Ball Other [employer] Other Start: 49-78-5334Ciwsifpcv encounterBenjamin BallFPG [facility] ClinicStart: 11-28-2022 End: 02-93-3674cwuqofdswgUgcvnzst Ball Other [employer] Other Start: 72-47-1570Ipwsxgrcm encounterBenjamin BallFPG [facility] ClinicStart: 11-25-2022 End: 82-03-1779avolfyhpyuNkslsavb Ball Other [employer] Other Start: 89-14-6425Encfmle encounter procedureBenjamin BallFPG [facility] ClinicStart: 11-08-2022 End: 07-75-0976mrpkwdztfgCqwscpoe Ball Other [employer] Other Start: 72-54-2504Mbehtcjoe encounterBenkyle BallFPG [facility] ClinicStart: 11-01-2022 End: 62-52-6297juwceduipmApwwnrbx Ball Other [facility] [employer] Other Start: 90-44-8981Kxwkyh outpatient visit 15 minutes Edwin CarlineG [facility] ClinicStart: 10-19-2022 End: 82-60-4732tmidehtcwgTmsfoqyv Ball Other [facility] [employer] Other Start: 64-26-8723Aunjmvbed encounterBenkyle CrowleyG [facility] ClinicStart: 74-18-3569Kqpfh health examinationBenkyle Ball Other [employer] Other Start: 05-25-2022 End: 97-28-9448ekrenztrlxVA EDWIN BALLFacility:T8Lhmic: 03-27-2022 End: 30-04-3970mbqrgxogkpOE EDWIN BALLFacility:H1 Procedures DateProcedureProcedure DetailPerforming ClinicianStart: 80-14-9989Iwxbw X-ray of right elbowBenjamin Ball DO Work Phone: Start: 07-73-2296Dvqqr X-ray of right elbowBenjamin Ball DO Work Phone: Start: 09-78-7651Srznt X-ray of right elbowBenjamin Ball DO Work Phone: Start: 02-12-2597Oxkjj X-ray of right elbowBenjamin Ball DO Work Phone: Start: 74-07-2273Kntishzfg for malignant neoplasm of colonBenjamin Ball Other Start: 79-01-0541Hwuabukvy for osteoporosisBenkyle Mohan Other Cataract (disorder)Kari Lue ColonoscopyKathy Lue Depression screeningEdwin Mohan Other H/O: hysterectomyKathy Lue History of tonsillectomyKathy Lue Screening for malignant neoplasm of breastBebobby Mohan Other Screening for malignant neoplasm of skinBebobby Mohan Other Plan of Treatment DateCare ActivityDetailAuthorStart: 86-65-2309Tcwda X-ray of right elbowXR elbow RT min 3V*[facility] [employer]: 97-15-9761OI Elbow - right GE 3 ViewsSelect [facility] Ohiotart: 89-23-8661Psipm X-ray of right elbowXR elbow RT min 3V*[facility] [employer]: 02-94-7681WZ Elbow - right GE 3 [facility] HospitalComprehensive metabolic 2000 panel - Serum or PlasmaMarymount HospitalCT Chest WO contrastMarymount HospitalPatient EducationKnox Community Hospital [facility] Work Phone: [facility]St[facility] Work Phone: US Heart TransthoracicMarymount HospitalXR Humerus - left [facility] HospitalXR Knee - left 4 ViewsHol[facility] Immunizations Immunization DateImmunizationNotesCare PfeqqcxlYkgvqhap78-50-3623fqfstmxkh, high dose seasonal, preservative-freeBenjamin Ball DO Work Phone: [facility]04-17-2025COVID-19 (PFIZER) 12Y and olderBenjamin Ball DO Work Phone: [facility]03-11-2025zoster vaccine recombinantBenjamin Ball DO Work Phone: [facility]09-29-2024tetanus toxoid, reduced diphtheria toxoid, and acellular pertussis vaccine, adsorbed Kari Lue [facility]09-19-2024COVID-19 (PFIZER) 12Y and olderBenjamin Ball DO Work Phone: [facility]09-19-2024influenza virus vaccine, unspecified formulationKathy Lue [facility]09-19-2024influenza, high dose seasonal, preservative-freeBenjamin Ball DO Work Phone: [facility]08-18-2024zoster vaccine recombinantKathy Lue [facility]11-17-2023RSV, preF3, adj, pfBenjamin Ball DO Work Phone: [facility]10-02-2023COVID-19 (PFIZER) 12Y and olderBenjamin Ball DO Work Phone: [facility]09-26-2023Influenza vaccine, quadrivalent, adjuvantedBenjamin Ball DO Work Phone: [facility]09-26-2023influenza virus vaccine, unspecified formulationKathy Lue [facility]11-12-2022influenza virus vaccine, unspecified formulationBenjamin Ball DO Work Phone: [facility]11-12-2022influenza, high dose seasonal, preservative-freeBenjamin Ball Other [phone] Other [id number], high dose seasonal, preservative-freeBenkyle Mohan Other [employer] Other [id number] QIV High-Dose 65YR+Edwin Mohan DO Work Phone: [facility]11-02-2022influenza virus vaccine, unspecified formulationKathy Lue [facility]09-27-2022COVID-19 Pfizer (bivalent)Edwin Mohan Other [facility]04-23-2022COVID-19 PfizerBenkyle Mohan Other [facility]04-23-2022COVID-19 Vaccine Pfizer - Documentation Purposes OnlyBenkyle Mohan Other [facility]04-23-2022SARS-CoV-2 mRNA (bjjvufrdvmh-njbs-itdohli) vaccineKathy Lue [facility]11-30-2021influenza virus vaccine, split virus (incl. purified surface antigen)Edwin Mohan Other [facility] [employer] Other [id number] virus vaccine, unspecified formulationBenkyle Mohan DO Work Phone: [facility]10-01-2021COVID-19 Vaccine Pfizer - Documentation Purposes OnlyFreddyanselmoanita Mohan Other [facility] above:Result Comment: 2024-05-30: [id number] Vaccine Pfizer - Documentation Purposes OnlyBigganita Mohan Other [facility] on above:Result Comment: 2024-05-30: [id number] Vaccine Moderna - Documentation Purposes OnlyBenjamin Ball Other [facility]01-27-2021COVID-19 Vaccine Pfizer - Documentation Purposes OnlyBenjamin Ball Other [facility] on above:Result Comment: 2024-05-30: [id number] virus vaccine, split virus (incl. purified surface antigen)Edwin Ball Other [facility] Other [id number] virus vaccine, unspecified formulationBenjamin Ball DO Work Phone: [facility]09-27-2019 pneumococcal polysaccharide vaccine, 23 valentBenjamin Ball Other [facility]09-10-2018 pneumococcal polysaccharide vaccine, 23 valentBenjamin Ball Other [facility]12-12-2017diphtheria, tetanus toxoids and acellular pertussis vaccine, unspecified formulationBenjamin Ball Other [facility]04-01-2017 pneumococcal polysaccharide vaccine, 23 valentKathy Lue [facility]10-15-2015pneumococcal conjugate vaccine, 13 valentBenjamin Ball Other [facility]10-14-2015 pneumococcal conjugate vaccine, 13 valentBenjamin Ball Other [facility] Payers DatePayer CategoryPayerPolicy [id number] Health [id number] 2023Medicare2023Private Health Insurance [id number] Health [id number] 2.840.3.79938[id number] 2.16840.1.045041.3.57[id number] 2.840.1.609208.3.57[id number] 2.0.1.926570.3.57[id number] 2.840.1.128336.3.57[id number] 2.0.1.835372.3.57[id number] 2.840.1.800383.3.57[id number] 2.840.1.309725.3.57[id number] 2.840.1.970651.3.57[id number] 2.0.1.711801.3.57[id number] 2.840.1.921120.3.57[id number] 2.840.1.044262.3.57[id number] 2.840.1.180992.3.57[id number] 2.16.840.1.837304.3.57[id number] 2.16.840.1.435422.3.57[id number] 2.16840.1.838386.3.57[id number] 2.840.1.344888.3.57[id number] 2.840.1.720074.3.57[id number] 2..840.1.036632.3.57[id number] 2.840.1.691712.3.57[id number] 2.840.1.856709.3.57[id number] 2.840.1.153910.3.57[id number] 2.16840.1.0[id number] 2.840.1.040802.3.579.2.531 [id number] 2.840.1.9[id number] 2.840.1.3[id number] 2.840.1.308458.3.579.2.531 Social History DateTypeDetailFacilitySex Assigned At [facility]: 51-13-0275Bon [facility]-30[facility]2024 End: 65-55-0335Owapglj smoking statusEx-smoker (finding)[facility]2024 End: 09-70-4888Zibjrdv smoking status NHISNever smoked tobacco (finding) [facility] Ohiotart: 12-03-2009 End: 64-59-1545FdkQxreaj (finding)[facility] statusNeverExec[facility] Sexual OrientationExec[facility] of [facility] Medical Equipment Procedure CodeEquipment CodeEquipment Original TextEquipment IdentifierDates Blood Sugar Diagnostic (Accu-Chek Guide Test Strips) stripStart: 11-96-6049Rvbii Sugar Diagnostic (Onetouch Verio Test Strips) stripStart: 12-21-2023 End: 70-27-0685Rofis Sugar Diagnostic (Accu-Chek Guide Test Strips) stripStart: 02-67-4004Yvlve Sugar Diagnostic (Onetouch Verio Test Strips) stripStart: 12-21-2023 End: 86-54-2515Pazmk Sugar Diagnostic (Accu-Chek Guide Test Strips) stripStart: 16-74-2805Bsxpg Sugar Diagnostic (Onetouch Verio Test Strips) stripStart: 12-21-2023 End: 26-57-8630Loepo Sugar Diagnostic (Accu-Chek Guide Test Strips) stripStart: 46-59-7162Timew Sugar Diagnostic (Onetouch Verio Test Strips) stripStart: 12-21-2023 End: 61-71-7377Wdkom Sugar Diagnostic (Accu-Chek Guide Test Strips) stripStart: 41-55-4460Kjjvb Sugar Diagnostic (Onetouch Verio Test Strips) stripStart: 12-21-2023 End: 26-46-4148Wbajn Sugar Diagnostic (Accu-Chek Guide Test Strips) stripStart: 82-40-2764Ovhxc Sugar Diagnostic (Onetouch Verio Test Strips) stripStart: 12-21-2023 End: 72-46-5196Kslro Sugar Diagnostic (Accu-Chek Guide Test Strips) stripStart: 52-69-9434Gpuyo Sugar Diagnostic (Onetouch Verio Test Strips) stripStart: 12-21-2023 End: 88-10-1033Xioay Sugar Diagnostic (Accu-Chek Guide Test Strips) stripStart: 13-98-8789Gayjx Sugar Diagnostic (Onetouch Verio Test Strips) stripStart: 12-21-2023 End: 52-05-3011Zwvyr Sugar Diagnostic (Accu-Chek Guide Test Strips) stripStart: 68-70-6648Tvhlo Sugar Diagnostic (Accu-Chek Guide Test Strips) stripStart: 12-22-2023 End: 15-76-6401Rfrxn Sugar Diagnostic (Onetouch Verio Test Strips) stripStart: 12-21-2023 End: 72-27-0051Mnbgh Sugar Diagnostic (Accu-Chek Guide Test Strips) stripStart: 44-88-6332Femlr Sugar Diagnostic (Accu-Chek Guide Test Strips) stripStart: 12-22-2023 End: 29-25-6739Gwhkf Sugar Diagnostic (Onetouch Verio Test Strips) stripStart: 12-21-2023 End: 67-89-5120Risni Sugar Diagnostic (Accu-Chek Guide Test Strips) stripStart: 63-12-0620Lwvyb Sugar Diagnostic (Accu-Chek Guide Test Strips) stripStart: 12-22-2023 End: 86-53-6082Thhqy Sugar Diagnostic (Onetouch Verio Test Strips) stripStart: 12-21-2023 End: 91-49-1748Clnme Sugar Diagnostic (Accu-Chek Guide Test Strips) stripStart: 30-00-4440Jqeyj Sugar Diagnostic (Accu-Chek Guide Test Strips) stripStart: 12-22-2023 End: 28-78-9894Oyeiy Sugar Diagnostic (Onetouch Verio Test Strips) stripStart: 12-21-2023 End: 14-00-7577Lptpb Sugar Diagnostic (Accu-Chek Guide Test Strips) stripStart: 07-83-6325Pmzjw Sugar Diagnostic (Accu-Chek Guide Test Strips) stripStart: 12-22-2023 End: 88-24-9033Aeafy Sugar Diagnostic (Onetouch Verio Test Strips) stripStart: 12-21-2023 End: 12-22-2023 Functional Status VoghDrczffptodUhfkdmSakhivuy27-46-1007Tpbohusjvl StatusN/AExec[facility] of [facility]10-09-2024Functional StatusN/A[facility] Clinical Notes 10-19-2022 to 04-23-2025 Note Date & ZtndZerpXtzqvzqe40-43-7444 Evaluation note* Diagnosis Onset Date Resolution Status Admit Date Contusion of knee, left acuteSeptember 2024 1:32pmContusion of shoulder, leftacuteSeptember 2024 1:32pmEssential hypertensionacuteSeptember 2024 1:32pmExercise hypoxemiaacuteSeptember 2024 1:32pmInterstitial lung diseaseacuteSeptember 2024 1:32pmLeft knee painacuteSeptember 2024 1:32pmOrthostatic lightheadednessacuteSeptember 2024 1:32pmShoulder pain, leftacuteSeptember 2024 1:32pmType 2 diabetes mellitus with hyperglycemiaacuteSeptember 2024 1:32pmEssential hypertensionacuteSeptember 2024 2:57pmObesityacute Pham 2024 2:57pmOrthostatic lightheadednessacuteSeptember 2024 2:57pmType 2 diabetes mellitus with hyperglycemiaacuteSept2024 2:57pm [facility] Work Phone: 1(298) 650-977209-02-2025 Evaluation note* Diagnosis Onset Date Resolution Status Admit Date Contusion of knee, left acuteSeptember 2024 1:32pmContusion of shoulder, leftacuteSeptember 2024 1:32pmEssential hypertensionacuteSeptember 2024 1:32pmExercise hypoxemiaacuteSeptember 2024 1:32pmInterstitial lung diseaseacuteSeptember 2024 1:32pmLeft knee painacuteSeptember 2024 1:32pmOrthostatic lightheadednessacuteSeptember 2024 1:32pmShoulder pain, leftacuteSept2024 1:32pmType 2 diabetes mellitus with hyperglycemiaacuteSeptember 2024 [...] 2 diabetes mellitus with hyperglycemiaacuteOctober 2024 1:22pm [facility] Work Phone: 1(130) 216-250208-20-2025 Hospital Discharge instructions Patient Education 04/10/2025 09:39:07 [...] symptoms are. Treatment may include: Using an hveg-fkq-tqzgskr vaginal lubricant before sex. Using a long-acting [...] Follow these instructions at home: Medicines Take hogv-buq-lepurpc and prescription medicines only as told by your health care provider. Do not use herbal or alternative medicines unless your health care provider says that you can. Use cexu-tpm-umhzfuv creams, lubricants, or moisturizers for dryness only [...] provider. Document Revised: 02/05/2021 Document Reviewed: 02/05/2021 [employer] Patient Education 2023 Bubbl. 04/10/2025 09:39:03 Urinary Incontinence Urinary Incontinence Urinary [...] nerve stimulation). ?For women, using a medical data analyst to prevent urine leaks. This is a [...] right after experiencing incontinence. General instructions Take jhwl-upg-idmhdha and prescription medicines only as told by [...] important. Where to find more information [place] [employer] Diabetes and Digestive and Kidney Diseases: www.niddk.nih.gov [employer] [employer]: www.urologyhealth.org Contact a health care [...] provider. Document Revised: 03/13/2021 Document Reviewed: 03/13/2021 [employer] Patient Education 2023 Bubbl. Follow Up Care 01/02/2025 15:33:39 With:Genevieve Jernigan PA-C, URL Address: When: Unknown Comments:F[facility] 6 months [facility] NotePatient Education Obstetrics and Gynecology Atrophic [...] are. Treatment may include: ??? Using an czzr-nmu-gpcqzsb vaginal lubricant before sex. ??? Using a [...] these instructions at home: Medicines ??? Take rwds-pei-ivbyccg and prescription medicines only as told by your health care provider. ??? Do not use herbal or alternative medicines unless your health care provider says that you can. ??? Use djit-kfq-gbctytf creams, lubricants, or moisturizers for dryness only [...] provider. Document Revised: 02/05/2021 Document Reviewed: 02/05/2021 [employer] Patient Education ? 2023 Bubbl. Urology Urinary Incontinence Urinary incontinence refers to a condition in which a person is unable to control where and when topass urine. A person with this condition will urinate involuntarily. This means that the person urinates when he or she does not mean to. What are the causes? (Inserted Image. Unable to dis (more content not included)...[facility]07-[facility] Hospital Discharge instructions Patient Education 03/12/2025 13:10:24 [...] symptoms are. Treatment may include: Using an nnts-ozj-qdbmoiy vaginal lubricant before sex. Using a long-acting [...] Follow these instructions at home: Medicines Take ynqv-uno-feccsfr and prescription medicines only as told by your health care provider. Do not use herbal or alternative medicines unless your health care provider says that you can. Use oiyt-awz-oakcfvm creams, lubricants, or moisturizers for dryness only [...] provider. Document Revised: 02/05/2021 Document Reviewed: 02/05/2021 [employer] Patient Education 2023 Bubbl. Follow Up Care 03/12/2025 09:26:25 With:Genevieve Jernigan PA-C, URL Address: When: Unknown Comments:Appointment has already been scheduled [facility] 07-22-2025 NotePatient Education Obstetrics and Gynecology Atrophic [...] are. Treatment may include: ??? Using an qxtc-ukn-lrzwddn vaginal lubricant before sex. ??? Using a [...] these instructions at home: Medicines ??? Take evrp-ifo-kjpbasu and prescription medicines only as told by your health care provider. ??? Do not use herbal or alternative medicines unless your health care provider says that you can. ??? Use yaau-wgy-ndwrxfr creams, lubricants, or moisturizers for dryness only [...] provider. Document Revised: 02/05/2021 Document Reviewed: 02/05/2021 [employer] Patient Education ? 2023 Bubbl.[facility] 02-07-2025 Evaluation note* Diagnosis Onset Date Resolution Status Admit Date Diverticulitis large intestine acuteJune 2024 9:44amType 2 diabetes mellitus with hyperglycemiaacuteJune 2024 9:44amContusion of knee, leftacuteSept2024 1:32pmContusion of shoulder, leftacuteSeptember 2024 1:32pmEssential hypertensionacute April 23, 2025 1:32pmExercise hypoxemiaacuteSept2024 1:32pm Interstitial lung diseaseacuteSept2024 1:32pmLeft knee painacute April 23, 2025 1:32pmOrthostatic lightheadednessacuteSeptember 2024 1:32pmShoulder pain, leftacuteSept2024 1:32pmType 2 diabetes mellitus with hyperglycemiaacuteSeptember 2024 1:32pmEssential hypertensionacute May 07, 2025 2:57pmOrthostatic lightheadednessacuteSept2024 2:57pmType 2 diabetes mellitus with hyperglycemiaacuteSept2024 2:57pm [facility] Work Phone: 1(712) 423-794606-09-2025 Evaluation note* Diagnosis Onset Date Resolution Status [...] with hyperglycemiaacuteJune 2024 9:44amContusion of knee, left acuteSept2024 1:32pmContusion of shoulder, leftacuteSept2024 1:32pmEssential hypertensionacuteSept2024 1:32pmLeft knee pain acuteSept2024 1:32pmOrthostatic lightheadednessacuteSept2024 1:32pmSshon pain, leftacuteSeptember 2024 1:32pm [facility] Work Phone: 1(185) 953-344805-14-2025 Hospital Discharge instructions Patient Education 01/02/2025 15:59:05 [...] your health care provider. General instructions Take bxwh-eer-nloemqm and prescription medicines only as told by [...] provider. Document Revised: 04/27/2021 Document Reviewed: 04/27/2021 [employer] Patient Education 2023 Bubbl. 01/02/2025 15:59:05 Urinary Incontinence Urinary Incontinence Urinary [...] nerve stimulation). ?For women, using a medical data analyst to prevent urine leaks. This is a [...] right after experiencing incontinence. General instructions Take lprt-zys-mtvqdit and prescription medicines only as told by [...] important. Where to find more information [place] [employer] Diabetes and Digestive and Kidney Diseases: www.niddk.nih.gov [employer] [employer]: www.urologyhealth.org Contact a health care [...] provider. Document Revised: 03/13/2021 Document Reviewed: 03/13/2021 [employer] Patient Education 2023 Bubbl. Follow Up Care 12/14/2024 11:11:36 With:Genevieve Jernigan PA-C, URL Address: When: Unknown Comments:3 month f[facility]u w[facility] NotePatient Education Obstetrics and Gynecology Overactive [...] health care provider. General instructions ??? Take ybcb-gbu-tnfbaui and prescription medicines only as told by [...] you drink, and whe (more content not included)...[facility]04[facility] Evaluation note* Diagnosis Onset Date Resolution Status Admit Date Fracture of radial head, right, closed acuteApril 2024 1:17pmASHD (arteriosclerotic heart disease)acuteJun2024 2:29pmCigarette nicotine dependence in remissionacuteJun2024 2:29pm Encounter for screening mammogram for malignant neoplasm of breastacuteJanuary 28, 2025 2:29pmEssential hypertensionacuteJun2024 2:29pmLumbar spondylosis acuteJun2024 2:29pmOSA (obstructive sleep apnea)acuteJun2024 2:29pmPulmonary noduleacuteJun2024 2:29pmPure hypercholesterolemiaacute Klarissa 2024 2:29pmRestrictive lung diseaseacuteJun2024 2:29pmType 2 diabetes mellitus with hyperglycemiaacuteJun2024 2:29pmMedicare annual wellness visit, subsequentnoneactiveJun2024 2:29pmFracture of radial head, right, closedacuteJune 2024 12:35pmDiverticulitis large intestine acuteJune 2024 9:44amType 2 diabetes mellitus with hyperglycemiaacuteJune 2024 9:44am [facility] Work Phone: 1(306) 728-810103-17-2025 Evaluation note* Diagnosis Onset Date Resolution Status [...] of radial head, right, closedacuteApril 2024 1:17pm [facility] Work Phone: 1(546) 736-740503-17-2025 Evaluation note* Diagnosis Onset Date Resolution Status [...] head, right, closedacuteApril 2024 1:17pmASHD (arteriosclerotic heart disease)acuteJun2024 2:29pmCigarette nicotine dependence in remissionacuteJun2024 2:29pmEncounter for screening mammogram for malignant neoplasm of breastacuteJanuary 28, 2025 2:29pm Essential hypertensionacuteJun2024 2:29pmInterstitial lung diseaseacute Klarissa 2024 2:29pmLumbar spondylosisacuteJun2024 2:29pmOSA (obstructive sleep apnea)acuteJun2024 2:29pmPulmonary noduleacuteJun2024 2:29pmPure hypercholesterolemiaacuteJun2024 2:29pmRestrictive lung diseaseacuteJun2024 2:29pmType 2 diabetes mellitus with hyperglycemiaacuteJun2024 2:29pmMedicare annual wellness visit, subsequentnoneactiveJune 2024 2:29pm [facility] Work Phone: 1(664) 452-755312-23-2024 Evaluation note* Diagnosis Onset Date Resolution Status Admit Date Acute vasomotor rhinitis acuteDecember 2023 10:18amBradycardiaacuteDecember 2023 10:18am Cerumen impactionacuteDecember 2023 10:18am [facility] Work Phone: 1(935) 362-528912-23-2024 Evaluation note* Diagnosis Onset Date Resolution Status Admit Date Acute vasomotor rhinitis acuteDecember 2023 10:18amBradycardiaacuteDecember 2023 10:18am Cerumen impactionacuteDecember 2023 10:18amASHD (arteriosclerotic heart disease)acuteMarch 2024 2:07pmEssential hypertensionacuteMarch 2024 2:07pmInterstitial lung diseaseacuteMarch 2024 2:07pmOSA (obstructive sleep apnea)acuteMarch 2024 2:07pmPulmonary noduleacuteMarch 2024 2:07pmRestrictive lung diseaseacuteMarch 17th, 2025 2:07pmType 2 diabetes mellitus with hyperglycemiaacuteMarch 2024 2:07pm [facility] Work Phone: 1(821) 318-748512-23-2024 Evaluation note* Diagnosis Onset Date Resolution Status [...] of radial head, right, closedacuteMarch 2024 12:00pm [facility] Work Phone: 1(760) 653-703910-09-2024 Evaluation + Plan note Diagnostic Tests Pending * Urine Cytology ([facility]) 05/30/24 [facility] 10-09-2024 Hospital Discharge instructions Patient Education [...] Follow these instructions at home: Medicines Take arcu-mba-yalbjeh and prescription medicines only as told by [...] or the blood stops without treatment. Take zcsq-wpv-zhvmpcz and prescription medicines only as told by your health care provider. Drink enough fluid to keep your urine pale yellow. This information is not intended to replace advice given to you by your health care provider. Make sure you discuss any questions you have with your health care provider. Document Revised: 04/08/2021 Document Reviewed: 04/08/2021 [employer] Patient Education 2023 Bubbl. 05/30/2024 09:04:34 Cystoscopy Cystoscopy Cystoscopy is a [...] including vitamins, herbs, eye drops, creams, and diyu-ppy-ifbvbai medicines. Any problems you or family members [...] provider tells you to take them. Taking qubi-kga-dwykfzd medicines, vitamins, herbs, and supplements. Tests You [...] Follow these instructions at home: Medicines Take qjpr-nqq-glmkavx and prescription medicines only as told by [...] provider. Document Revised: 04/21/2022 Document Reviewed: 03/20/2021 [employer] Patient Education 2023 Bubbl. Follow Up Care 2024 11:11:22 With:Evgeny CHO, Kari Bob, SHIN, URO Address: [address] [place] [address] [phone] When: Unknown Comments:sched cysto [facility] 10-09-2024 NotePatient Education Urology Hematuria, Adult [...] these instructions at home: Medicines ? Take xlvn-tbz-bpnfizh and prescription medicines only as told by [...] the blood stops without treatment. ? Take udsr-fbq-iehnhsa and prescription medicines only as told by your health care provider. ? Drink enough fluid to keep your urine pale yellow. This information is not intended to replace advice given to you by your health care provider. Make sure you discuss any questions you have with your health care provider. Document Revised: 04/08/2021 Document Reviewed: 04/08/2021 [employer] Interactive Patient Education ? 2023 Bubbl. Cystoscopy Cystoscopy is a procedure that is [...] drops, creams, and over-th (more content not included)...[facility]* Encounter Date Diagnosis Assessment Notes Treatment Notes Treatment Clinical Notes Sep, Acute bilateral thoracic back pa in (ICD-10 - M54.6) [employer] Other [id number] Evaluation note* Encounter Date Diagnosis Assessment Notes [...] use, the patient reduces the risk for DE, CVA, HTN, cardiac dysrhythmias and sudden cardiac [...] nodule (ICD-10 - R91.1)CT: 4mm nodule - 31534il, in smoker would recommend repeat in 12 months. [employer] Other 12-14-2023 Evaluation note* Encounter Date Diagnosis Assessment Notes Treatment Notes Treatment Clinical Notes Jul, Restrictive lung disease (ICD-10 - J98.4) [facility] Other 11-28-2023 Evaluation note* Encounter Date Diagnosis [...] Z20.822)Send for COVID PCR - results negative [employer] Other 10-25-2023 Evaluation note* Encounter Date Diagnosis Assessment Notes Treatment Notes Treatment Clinical Notes May, Age-related osteopor osis without current pathological fracture (ICD-10 - M81.0) [facility] Other 10-19-2023 Evaluation note* Encounter Date Diagnosis Assessment Notes Treatment Notes Treatment Clinical Notes May, Acute bilateral thoracic back pa in (ICD-10 - M54.6) [facility] Other 10-18-2023 Evaluation note* Encounter Date Diagnosis [...] index [BMI] 34.0-34.9, adult (ICD-10 - Z68.34) [employer] Other 10-13-2023 Evaluation note* Encounter Date Diagnosis Assessment Notes Treatment Notes Treatment Clinical Notes May, Simple chronic bronchitis (ICD-1 0 - J41.0) Continue LABA/ICS Use DIMITRI as needed for cough/wheezing. Control allergies and GERD symptoms. Weight loss May,Restrictive lung disease (ICD-10 - J98.4)Weight loss important. Avoid exposure to dust, smoke and allergens. Continue treatment for DUSTIN Refer to [facility] for evaluation and treatment May,OSA (obstructive sleep apnea) (ICD-10 - G47.33)This patient is aware of the benefits associated with DUSTIN: With continued use, the patient reduces t he risk for DE, CVA, HTN, cardiac dysrhythmias and sudden cardiac [...] continue exercise to achieve/maintain a normal BMI. [employer] Other 08-31-2023 Evaluation note* Encounter Date Diagnosis Assessment Notes Treatment Notes Treatment Clinical Notes Mar, Chronic bronchitis, simple (ICD- 10 - J41.0) [employer] Other 08-30-2023 Evaluation note* Encounter Date Diagnosis Assessment Notes Treatment Notes Treatment Clinical Notes Mar, Chronic bronchitis, simple (ICD- 10 - J41.0) [employer] Other 08-30-2023 Evaluation note* Encounter Date Diagnosis Assessment Notes Treatment Notes Treatment Clinical Notes Mar, Chronic bronchitis, simple (ICD- 10 - J41.0) Mar,OE (dyspnea on exertion) (ICD-10 - R06.09) [employer] Other 08-28-2023 Evaluation note* Encounter Date Diagnosis Assessment Notes Treatment Notes Treatment Clinical Notes Mar, Pulmonary nodule (ICD-10 - R91.1 ) [employer] Other 08-22-2023 Evaluation note* Encounter Date Diagnosis Assessment Notes Treatment Notes Treatment Clinical Notes Mar, Pulmonary nodule (ICD-10 - R91.1 ) [employer] Other 08-22-2023 Evaluation note* Encounter Date Diagnosis [...] index [BMI] 34.0-34.9, adult (ICD-10 - Z68.34) [employer] Other 08-17-2023 Evaluation note* Encounter Date Diagnosis Assessment Notes Treatment Notes Treatment Clinical Notes Mar, Acute bilateral low back pain wi thout sciatica (ICD-10 - M54.50) [employer] Other 08-08-2023 Evaluation note* Encounter Date Diagnosis [...] 3 mo as needed. Continue weight loss [employer] Other 04-09-2023 Evaluation note* Encounter Date Diagnosis Assessment Notes Treatment Notes Treatment Clinical Notes Nov, Obstructive sleep ap sinai (adult) (pediatric) (ICD-10 - G47.33) AHI 34, CPAP14, [employer] Other 04-06-2023 Evaluation note* Encounter Date Diagnosis [...] use, the patient reduces the risk for DE, CVA, HTN, cardiac dysrhythmias and sudden cardiac [...] Nov,High risk medication use (ICD-10 - Z79.899) [employer] Other 03-13-2023 Evaluation note* Encounter Date Diagnosis Assessment Notes Treatment Notes Treatment Clinical Notes Oct, Acute non-recurrent maxillary si nusitis (ICD-10 - J01.00) Instructed to use Flonase NS for congestion, Tessalon for cough, Tylenol for pain and fever. Oct,cute cough (ICD-10 - R05.1)Head upright, push fluids and Tessalon perles [employer] Other 02-28-2023 Evaluation note* Encounter Date Diagnosis Assessment Notes Treatment Notes Treatment Clinical Notes Sep, Pure hypercholesterolemia (ICD-1 0 - E78.00) [employer] Other Evaluation + Plan note Future Appointments Appointment Date:04/03/2025 12:30:00 PM Scheduled Provider:Genevieve Jernigan PA-C Location:[facility] Appointment Type:URO Office Visit [facility] evaluation + Plan note Future Appointments Appointment Date:04/10/2025 08:30:00 AM Scheduled Provider:Genevieve Jernigan PA-C Location:[facility] Appointment Type:URO Office Visit [facility] Evaluation noteNo InformationNort [employer] Other evaluation noteNo assessment information available [facility] Work Phone: [employer] general Narrative - Reported* Type Description Date Medical History Essential hypertension Medical HistoryASHD (arteriosclerotic heart disease)Medical HistoryChronic venous insufficiencyMedical HistoryChronic bronchitis, simpleMedical HistoryHigh cholesterolMedical HistoryLumbar spondylosisMedical HistoryObesity (BMI 30-39.9) Medical HistoryObstructive sleep apnea (adult) (pediatric) [employer] Other [employer] general Narrative - Reported* Type Description Date Medical History Essential hypertension Medical HistoryASHD (arteriosclerotic heart disease)Medical HistoryChronic venous insufficiencyMedical HistoryChronic bronchitis, simpleMedical HistoryHigh cholesterolMedical HistoryLumbar spondylosisMedical HistoryObesity (BMI 30-39.9) Medical HistoryObstructive sleep apnea (adult) (pediatric)Surgical HistoryTAH /[id number] HistoryTONSILLECTOMYSurgical HistoryD&CSurgical HistoryLHC Surgical HistoryCYSTOSCOPYSurgical HistoryURETHRAL [id number] History [id number] HistorySEE SURGICAL [employer] Other [employer] general Narrative - Reported* Type Description Date Medical History Essential hypertension Medical HistoryASHD (arteriosclerotic heart disease)Medical HistoryChronic venous insufficiencyMedical HistoryChronic bronchitis, simpleMedical HistoryHigh cholesterolMedical HistoryLumbar spondylosisMedical HistoryObesity (BMI 30-39.9) Medical HistoryObstructive sleep apnea (adult) (pediatric)Medical History OsteoporosisSurgical HistoryTAH /[id number] HistoryTONSILLECTOMYSurgical HistoryD&CSurgical HistoryLHCSurgical HistoryCYSTOSCOPYSurgical HistoryURETHRAL [id number] [id number] HistorySEE SURGICAL [employer] Other History general Narrative - Reported* Type Description Date Medical History Essential hypertension Medical HistoryASHD (arteriosclerotic heart disease)Medical HistoryChronic venous insufficiencyMedical HistoryChronic bronchitis, simpleMedical HistoryHigh cholesterolMedical HistoryLumbar spondylosisMedical HistoryObesity (BMI 30-39.9) Medical HistoryObstructive sleep apnea (adult) (pediatric)Medical History OsteoporosisMedical HistoryRestrictive lung diseaseSurgical HistoryTAH /[id number] Surgical HistoryTONSILLECTOMYSurgical HistoryD&CSurgical HistoryLHCSurgical HistoryCYSTOSCOPYSurgical HistoryURETHRAL [id number] HistoryCOLONSCOPY 2018Hospitalization HistorySEE SURGICAL HX [employer] Other Hospital course Narrative No data available for this section [facility] Hospital Discharge instructions No data available for this section [facility] Progress note No data available for this section [facility] reason for referral (narrative)* Reason Referral for COPD an d RLD Diagnosis 1 Restrictive lung dis ease (J98.4) Diagnosis 2 Chronic bronchitis, simple (J41.0) Diagnosis 3 Pulmonary nodule (R9 1.1) Diagnosis 4 Cigarette nicotine d ependence in remission (F17.211) Referral Organization [facility] [employer] karin Referring Provider First Name Edwin Referring Provider Last Name Felecia Referring Provider [facility] Referred Organization [facility] Referred Provider Yany Martinez Referred Address ,[place], [place],[address] Referred Provider Specialty Pulmonary Di seases Referral Priority Routine General Notes Patient with hx of t obacco use and CT, PFT findings suspicious for COPD/emphysema and ILD. Obesity may contribute to respiratory complaints. Clinical Notes Labs, CT, PFT [facility] [employer] Other Reason for referral (narrative)* Reason Referral for persist ent thoracolumbar spine pain Diagnosis 1 Acute bilateral thor acic back pain (M54.6) Diagnosis 2 Lumbar spondylosis ( M47.816) Diagnosis 3 Age-related osteopor osis without current pathological fracture (M81.0) Referral Organization [facility] [employer] karin Referring Provider First Name Edwin Referring Provider Last Name Felecia Referring Provider Specialty Internal Ms dicine Referred Organization [facility] Referred Provider Freddie Cotton Referred Address [address], [place],[address] Referred Provider Specialty Pain Medicin e Referral Priority Routine General Notes Patient w/ known deg enerative arthritis of the spine w/ persistent moderate to severe thoracolumbar spine pain w/ paraspinal muscle spasms. Completed PT w/ some temporary improvement. Stretching, Tylenol and Tramadol helping w/ the pain. Refer for alternative treatment for persistent back pain. [employer] Other Reason for referral (narrative)No reason for referral information availableSt. [facility] Work Phone: Summary Purpose Family History No Family History Records Found Relationship Condition Age at Onset Recorded Date/T mervin father Unknown motherDeceasedUnknown Advance Directives No Advanced Directives Records Found Advance Directive Response Recorded Date/ Time Advance Directives No April 11:03am Advance Directive Response Recorded Date/ Time Advance Directives No April 10:27am Advance Directive Response Recorded Date/ Time Advance Directives No April 1:55pm Advance Directive Response Recorded Date/ Time Advance Directives No April 12:55pm Chief Complaint and Reason for Visit Chief [...] 13, 2024 10:18am ASHD (arteriosclerotic heart disease) [facility] 2024 2:07pm Essential hypertension November 05, [...] right November 06, 2024 8:28am ER [facility] RT ELBOW FX WX November 06, 2024 12:00pm Reason for Visit Admit Date Acute vasomotor rhinitis August 13, 2024 10:18am Bradycardia August 13, 2024 10:18am Cerumen impaction August 13, 2024 10:18am ASHD (arteriosclerotic heart disease) [facility] 2024 2:07pm Essential hypertension November 05, 2024 2:07pm Fracture of radial head, right, closed M arch 2024 2:07pm Interstitial lung disease November 05 2:07pm DUSTIN (obstructive sleep apnea) October 2:07pm Pulmonary nodule November 05, 2024 2:0 7pm Restrictive lung disease November 05 2:07pm Type 2 diabetes mellitus with hyperglyce [facility] November 05, 2024 2:07pm Fracture of radial head, right, closed M arch 2024 12:00pm Chief Complaint Admit Date fall, right arm injury November 03, 2024 4:31pm 4 month f/u-HIGH RISK November 05, 2024 2 :07pm S52.124D - Nondisplaced fracture of head of right November 06, 2024 8:28am ER [facility] RT ELBOW FX WX November 06, 2024 12:00pm S52.124D - Nondisplaced fracture of head of right December 11, 2024 11:15am 5 WEEKS December 11, 2024 1:1 7pm Reason for Visit Admit Date ASHD (arteriosclerotic heart disease) [facility] 2024 2:07pm Essential hypertension November 05, [...] right November 06, 2024 8:28am ER [facility] RT ELBOW FX WX November 06, 2024 12:00pm S52.124D - Nondisplaced fracture of head of right December 11, 2024 11:15am 5 WEEKS December 11, 2024 1:1 7pm Wellness-HIGH RISK January 28, 2025 2:29p m Reason for Visit Admit Date ASHD (arteriosclerotic heart disease) [facility] 2024 2:07pm Essential hypertension November 05, [...] 2024 1:17pm ASHD (arteriosclerotic heart disease) [facility] 2024 2:29pm Cigarette nicotine dependence in [place] [...] ne 2024 2:29pm [facility] January 28, 2025 2:29pm Encounter for [...] ne 2024 2:29pm [facility], [facility]25 2:29pm Encounter for [...] 2:29pm Type 2 diabetes mellitus with hyperglyce [facility] January 28, 2025 2:29pm Medicare annual wellness visit, ezrae nt January 28, 2025 2:29pm Fracture of radial head, right, closed J une 2024 12:35pm Diverticulitis large intestine January 9:44am Type 2 diabetes mellitus with hyperglyce [facility] February 07, 2025 9:44am Contusion of knee, [...] 9:44am Type 2 diabetes mellitus with hyperglyce [facility] February 07, 2025 9:44am Contusion of knee, left April 23 2 025 1:32pm Contusion of shoulder, left April d2024 1:32pm Essential hypertension April 23 1:32pm Exercise hypoxemia April 23, 2025 1:32pm Interstitial lung disease April 23, 2025 1:32pm Left knee pain April 23, 2025 1:32pm Orthostatic lightheadedness April 1:32pm Shoulder pain, left April 23, 2025 1:32pm Type 2 diabetes mellitus with hyperglyce justin April 23, 2025 1:32pm Essential hypertension May 07 025 2:57pm Orthostatic lightheadedness May 072024 2:57pm Type [...] April 1:32pm Essential hypertension April 23 1:32pm Exercise hypoxemia April 23, 2025 1:32pm Interstitial lung disease April 23, 2025 1:32pm Left knee pain April 23, 2025 1:32pm Orthostatic lightheadedness April 1:32pm Shoulder pain, left April 23, 2025 1:32pm Type 2 diabetes mellitus with hyperglyce justin April 23, 2025 1:32pm Essential hypertension May 07 2:57pm Obesity May 07, 2025 2:57pm Orthostatic [...] April 23, 2025 1:32pm Essential hypertension May 07, 2 025 2:57pm Obesity May 07, 2025 2:57pm Orthostatic lightheadedness May 072024 2:57pm Type 2 diabetes mellitus with hyperglyce justin May 07, 2025 2:57pm Compression fracture of L1 lumbar verteb ra May 10, 2025 1:56pm Low back pain May 10, 2025 1:56pm Lumbar spondylosis May 10, 2025 1:56pm ASHD (arteriosclerotic heart disease) [facility] 2024 1:22pm Cigarette nicotine dependence in [facility] on June 07, 2025 1:22pm Essential hypertension June 07 1:22pm Lumbar spondylosis June 07, 2025 1 :22pm DUSTIN (obstructive sleep apnea) June 072024 1:22pm Pulmonary nodule June 07, 2025 1 :22pm Pure hypercholesterolemia June 07, 2025 1:22pm Restrictive lung disease June 07 2 025 1:22pm Type 2 diabetes mellitus with hyperglyce [facility] June 07, 2025 1:22pm Chief Complaint Admit Date fall April 23, 2025 1:32pm BP Concerns May 07, 2025 2:57pm Back Pain May 10, 2025 1:56pm 4 mo f/u June 07, 2025 1 :22pm URI June 24, 2025 1 0:15am Additional Source Comments REASON FOR VISIT (unrecogniz ed section and content) Medication QuestionCongestio n [phone] ATBwellnessNo InformationCPAP Equipment?4 month follow upBack SpasmsNo InformationXR resultsreferral for PTNo InformationNo InformationNo InformationCT resultsDifferent InhalerPFT resultstesting resultsback painMedicationNo InformationDexa [id number] cold/sore throatNo Information4 month Follow upHR-AtenololUpdateNo Information INFORMATION SOURCE (unrecogn ized section and content) DATE CREATED AUTHOR 01/01/2023 [facility] DATE CREATED AUTHOR AUTHOR'S ORGANIZ ATION 08/05/2023 [facility] DATE CREATED AUTHOR AUTHOR'S ORGANIZ ATION 04/05/2024 [facility] DATE CREATED AUTHOR AUTHOR'S ORGANIZ ATION 06/06/2024 [facility] DATE CREATED AUTHOR AUTHOR'S ORGANIZ ATION 03/04/2025 [facility] DATE CREATED AUTHOR AUTHOR'S ORGANIZ ATION 03/15/2025 [facility] DATE CREATED AUTHOR AUTHOR'S ORGANIZ ATION 03/20/2025 [facility] DATE CREATED AUTHOR AUTHOR'S ORGANIZ ATION 03/21/2025 [facility] DATE CREATED AUTHOR AUTHOR'S ORGANIZ ATION 03/22/2025 [facility] DATE CREATED AUTHOR AUTHOR'S ORGANIZ ATION 04/05/2025 [facility] DATE CREATED AUTHOR AUTHOR'S ORGANIZ ATION 04/26/2025 [facility] DATE CREATED AUTHOR AUTHOR'S ORGANIZ ATION 04/29/2025 [facility] DATE CREATED AUTHOR AUTHOR'S ORGANIZ ATION 05/02/2025 [facility] DATE CREATED AUTHOR AUTHOR'S ORGANIZ ATION 06/28/2025 [facility] Care Teams (unrecognized sec tion and content) [...] Status: Inactive Member Role Status Dates Edwin Mohna DO Primary Care Provider Active Start: December 11, 2024 End: December 11, 2024Wilfred Orozco DOAttending ProviderActiveStart: December 11, 2024 End: December 11, [...] January 28, 2025 End: January 28ana Moon [facility]Adrianna CoordinatorActiveStart: January 28, 2025 End: January 28, 2025 Team Status: Inactive Member Role Status Dates Edwin Mohan DO Primary Care Provider Active Start: February 05, 2025 End: February 05, 2025Wilfred Orozco DOAttending ProviderActiveStart: February 05, 2025 End: February 05, 2025 Team Status: Inactive Member Role Status Dates Edwin Mohan DO Primary Care Provider Active Start: February 07, 2025 End: February 07landy Mohan DOAttending ProviderActiveStart: February 07, 2025 End: February 07, 2025 Team Status: Inactive Member Role Status Dates Edwin Mohan DO Primary Care Provider Active Start: February 28, 2025 End: February 28enjamin Ball , DOAttending ProviderActiveStart: February 28, 2025 End: [...] Edwin Mohan DOAttending ProviderActiveStart: April 05, 2025 Team Status: [...] Active Start: June 07, 2025 End: June 07shaynaAkil Cortes ProviderActiveStart: June 07, 2025 End: June 07, 2025 Team Status: Inactive Member Role/Relationship Status Dates Edwin Mohan DO Primary Care Provider Active Start: June 24, 2025 End: June 24shaynaAkil Cortes ProviderActiveStart: June 24, 2025 End: June 24, 2025 Goals (unrecognized section and content) Goals [...] BE BASED ON THE PRIMARY CLINICAL RECORDS. [facility] [employer] provides no warranty or guarantee of the accuracy or completeness of information in this document.
[2025-08-02 17:08] LABS: Antinuclear Antibodies, IFA Negative (.)
== END 2025-08-01 12:11 | disposition home or self-care (01) ==
LOC: LAB 12:11
PROVIDERS: PCP Internal Medicine; Visit Provider Nurse Practitioner Acute Care
DX: J84.9 Interstitial pulmonary disease, unspecified (principal)
CPT/HCPCS: 36415; 85652; 86038; 86235; 86431